=== PATIENT | female | born 1935 | race Caucasian/White ===

== ENCOUNTER → 2016-10-15 | Outpatient (CLI) | payer OTHER, BC ==
[~2016-10-15] MED LIST: ACET325T96 PO; ALBU18002 INH; ALBUAER2 INH; AMLO-114 PO; ASPCH81X PO; ASPEC81 PO; ATOR-22 PO; ATOR10TA88 PO; CALC600T9 PO; CHOL20009 PO; CIPR0.3S OPL; DOCU-94 PO; LISI-725 PO; METF-384 PO; METF1TAB53 PO; METO50TA16 PO; METO50TA17 PO; MONT1TAB3 PO; NRV5 PO; NYST-19 EXT; PANT1TAB48 PO; PANT40TA PO; PRED1SUS3 OPL; PSEU60TA80 PO; QUET1TAB30 PO; SENN1TAB77 PO; SNG10 PO; TRAM-10 PO; [UNRECOGNIZED DRUG - OTHER] PO
--- NOTE | 2016-10-15 14:04 | DIAGNOSTIC IMAGING REPORT ---
TWO VIEW CHEST CLINICAL HISTORY: Cough. FINDINGS: PA and lateral chest radiographs are compared to study dated 12/09/2015. The heart is enlarged and there is atherosclerotic calcification of the thoracic aorta. The pulmonary vasculature is noncongested. Chronic interstitial thickening is similar to previous. There is left basilar atelectasis. No airspace consolidation or pleural effusion is identified. There is no pneumothorax. The skeletal structures are osteopenic. Degenerative changes noted throughout the thoracic spine. A mild compression deformity is noted in the lower thoracic region. Cholecystectomy clips are noted in the right upper quadrant. IMPRESSION: Cardiac enlargement with no active disease in the chest. Electronically signed by: Italo Whelan M.D. 10/15/2016 2:02 PM Dictated Date/Time: 10/15/2016 2:01 PM
== END | disposition home or self-care (01) ==
LOC: C.RADBC 13:41
PROVIDERS: ATTEND Family Medicine
DX: R05 Cough (principal); I51.7 Cardiomegaly

== ENCOUNTER → 2017-01-11 | Day surgery (SDC) | payer OTHER, BC ==
[2016-12-29 15:28] VITALS: Ht 161.3 cm; Wt 95.5 kg
[~2017-01-11] VITALS: Ht 161.3 cm; Wt 95.5 kg
[~2017-01-11] MED LIST changes: +500ML BSS 0.3ML EPI 1:1000PF IRRIG ONE; +ACETAMINOPHEN 325 MG TAB PO PRN; -ALBUAER2 INH; +AMVISC PLUS 0.8ML SYRINGE INT OCU ONE; -ASPEC81 PO; -ATOR-22 PO; +ATOR10TA82 PO; -ATOR10TA88 PO; +ATROPINE SULFATE 0.1 MG/ML 5ML SYR IV PRN; +BRIMONIDINE TART 0.2% OP SOLN PER DROP CHARGE ONE; +BSS FLUSH ONE; +ENDOCOAT 0.85ML SYRINGE INT OCU ONE; +EpINEphrine INJ 1MG/ML AMP 1 MG/ML AMP ONE; +LACTATED RINGER'S 1000ML 500 ML IV SCH; +LIDOCAINE 4% OP SOLN DROP CHARGE ONE; +LIDOCAINE 4% OP SOLN DROP CHARGE OPL SCH; +LIDOCAINE HCL 1% MPF 2 ML VIAL ONE; -METF-384 PO; -METO50TA17 PO; +MIDAZOLAM HCL 1 MG/ML 2ML VIAL ONE; +MOXIFLOXACIN OPH SOLN PER DROP CHARGE ONE; -NRV5 PO; -PANT40TA PO; +POVIDONE-IODINE OP SOLN 30 ML BTL ONE; +PROPARACAINE 0.5% OP SOLN PER DROP CHARGE OPL SCH; -SNG10 PO; +TOBRAMYCIN/DEXAMETHASONE OPH OINT PER APPLN CHARGE ONE; -[UNRECOGNIZED DRUG - OTHER] PO
[2017-01-11] MEDS: TROPICAMIDE 1% OP SOLN PER DROP CHARGE OPL SCH ×2 (06:40→06:45)
[2017-01-11] MEDS: PHENYLEPHRINE HCL 2.5% OP SOLN PER DROP CHARGE OPL SCH ×2 (06:40→06:45)
[2017-01-11] MEDS: CYCLOPENTOLATE HCL 1% OP SOLN PER DROP CHARGE OPL SCH ×2 (06:41→06:46)
[2017-01-11] MEDS: KETOROLAC 0.5% OP SOLN PER DROP CHARGE OPL SCH ×2 (06:41→06:46)
[2017-01-11] MEDS: MOXIFLOXACIN OPH SOLN PER DROP CHARGE OPL SCH ×2 (06:42→06:52)
--- NOTE | 2017-01-11 06:57 | History & Physical Bridge - [place] ---
H&P Re-Evaluation Bridge Note: I have examined the patient, reviewed the History & Physical and in the interval since the performance of the History & Physical I have noted the following changes of clinical significance: No changes noted
--- NOTE | 2017-01-11 07:28 | Discharge Instructions-SurgCtr ---
Discharge Instructions Date of Service Jan 11, 2017. Visit Reason for Visit: Cataract Left Eye Discharge Discharge Diagnosis / Problem: cataract left eye Discharge Goals Goal(s): Improve function Medications Stopped Medications Name(s): Metformin stopped x 48 hrs. Activity Recommendations Activity Limitations: per Instructions/Follow-up section Lifting Limitations: no more than 5 pounds Anesthesia . Post Anesthesia Instructions: If you have had General Anesthesia or IV Sedation: * Do not drive today. * Resume driving when surgeon permits. * Do not make important decisions or sign legal documents today. * Call surgeon for: 1. Temperature elevations greater than 101 degrees F. 2. Uncontrollable pain. 3. Excessive bleeding. 4. Persistent nausea and vomiting. 5. Medication intolerance (nausea, vomiting or rash). * For nausea and vomiting use only clear liquids such as: tea, soda, bouillon until nausea subsides, then gradually increase diet as tolerated. * If you have any concerns or questions, call your surgeon's office. If physician is unavailable and it is an emergency, call 911 or go to the nearest emergency room. . Instructions / Follow-Up Instructions / Follow-Up ACTIVITY RECOMMENDATIONS: * Light activities * You may walk outside, read, watch television. * Mild irritation and blurred vision are common for the first few days, redness around the white part of the eye is common. MEDICATIONS: Resume previous medications unless instructed otherwise by your surgeon. Eye drops (today and tomorrow): Cipro - one drop in operative eye every 2 hours while awake Prednisolone 1% - one drop in operative eye every 2 hours while awake Ketorolac - one drop in operative eye every 2 hours while awake SPECIAL CARE INSTRUCTIONS: * If any problems or concerns, please call Dr. Smith's office at . * Keep plastic shield taped over eye to sleep at night. * Keep plastic shield taped over eye except to administer eye drops. * Keep plastic shield on until office visit the following day. FOLLOW UP VISIT: Follow-up with Dr. Smith in the [place] office as scheduled. If not already scheduled, please call the office at . Diet Recommendations Home Diet: resume previous diet Procedures Procedures Performed: Left Cataract Phacoemulsification With Intraocular Lens Implant Pending Studies Studies pending at discharge: no Medical Emergencies . Who to Call and When: Medical Emergencies: If at any time you feel your situation is an emergency, please call 911 immediately. . Non-Emergent Contact Non-Emergency issues call your: Elementary Reading Specialist . . "Provider Documentation" section prepared by Ambrose Smith.
--- NOTE | 2017-01-11 07:28 | [facility] Post Operative Brief Note ---
Immediate Operative Summary Operative Date Jan 11, 2017. Pre-Operative Diagnosis Cataract left eye Post-Operative Diagnosis same Procedure(s) Performed Left Cataract Phacoemulsification With Intraocular Lens Implant Surgeon Dr Smith Publication Director Surgeon(s) 0 Estimated Blood Loss 0 Findings cataract left eye Specimens 0 Complication(s) None Disposition Recovery Room / PACU
[2017-01-11 07:29] VITALS: TEMP 36.6
[2017-01-11 07:52] VITALS: BP 177/102; PULSE 58; O2SAT 97
--- NOTE | 2017-01-11 07:55 | Anesthesia Progress Nt - [facility] ---
Anesthesia Post Op Note Date & Time Jan 11, 2017 at 07:55 Vital Signs Pain Intensity: 0 Vital Signs Past 12 Hours Date Time Temp Pulse Resp B/P Pulse Ox O2 Delivery O2 Flow Rate FiO2 01/11/17 07:52 58 18 177/102 97 Room Air 01/11/17 07:29 36.6 55 14 175/78 96 Room Air 01/11/17 06:25 36.6 53 20 160/99 93 Room Air Notes Mental Status: alert / awake / arousable, participated in evaluation Pt Amnestic to Procedure: Yes Nausea / Vomiting: adequately controlled Pain: adequately controlled Airway Patency, RR, SpO2: stable & adequate BP & HR: stable & adequate Hydration State: stable & adequate Anesthetic Complications: no major complications apparent
--- NOTE | 2017-01-11 09:50 | OPERATIVE REPORT ---
DATE OF OPERATION: 01/11/2017 PREOPERATIVE DIAGNOSIS: Cataract, left eye. POSTOPERATIVE DIAGNOSIS: Cataract, left eye. PROCEDURE: Phacoemulsification cataract extraction with intraocular lens placement, left eye. SURGEON: Dr. Smith. COMPLICATIONS: None. ESTIMATED BLOOD LOSS: None. ANESTHESIA: Topical with sedation. OPERATION AND FINDINGS: After informed consent was obtained in the holding area the patient was wheeled back to the Operating Room where cardiac monitoring leads and oxygen by nasal cannula was administered by Anesthesia. Gentle IV sedation was given, and the patient's left eye was prepped and draped in the usual sterile fashion. A wire lid speculum was placed into the left eye and the operating microscope was swung into position. Using 0.12 forceps and a Supersharp blade a paracentesis port was made 3 o'clock hours away from the 3 o'clock position of patient's left eye. 1% non-preserved Lidocaine was then injected into the anterior chamber for anesthesia. A 2.2 mm keratotome blade was then used to make a shelved clear corneal incision at the 3 o'clock position of her left eye. Amvisc was injected into the anterior chamber and a cystotome and Utrata forceps were used to perform a curvilinear capsulorrhexis. BSS on a hydrodissection cannula was used to hydrodissect the lens nucleus away from the capsular bag. The phacoemulsification handpiece was then used in a stop and chop fashion to remove the lens nucleus. The irrigation and aspiration handpiece was then used to remove the residual cortical material. Amvisc was injected into the capsular bag and anterior chamber and a Bausch \T\ Lomb MX60 21.0 Diopter intraocular lens was injected into the capsular bag. Irrigation and aspiration handpiece was used to remove the residual viscoelastic material. The wounds were hydrated and noted to be watertight. The wire lid speculum was removed from the eye. Vigamox, Brimonidine, and TobraDex ointment were placed on the eye and it was shielded. It should be noted that EndoCoat was used during the case to protect the cornea endothelium. DISPOSITION: The patient tolerated the procedure well and was wheeled to the post anesthesia care unit in stable condition. I attest to the content of the Intraoperative Record and any orders documented therein. Any exceptions are noted below. I attest to the content of the Intraoperative Record and any orders documented therein. Any exceptio ns are noted below.
== END | disposition home or self-care (01) ==
LOC: X.SURG 06:09
PROVIDERS: ATTEND Ophthalmology
DX: H26.9 Unspecified cataract (principal); I10 Essential (primary) hypertension; E11.36 Type 2 diabetes mellitus with diabetic cataract; J45.909 Unspecified asthma, uncomplicated; G47.33 Obstructive sleep apnea (adult) (pediatric); M19.90 Unspecified osteoarthritis, unspecified site; Z68.37 Body mass index [BMI] 37.0-37.9, adult; E66.9 Obesity, unspecified; Z90.710 Acquired absence of both cervix and uterus; Z90.49 Acquired absence of other specified parts of digestive tract

== ENCOUNTER → 2017-01-25 | Day surgery (SDC) | payer OTHER, BC ==
[2017-01-22 14:51] VITALS: Ht 161.3 cm; Wt 95.5 kg
[~2017-01-25] VITALS: Ht 161.3 cm; Wt 95.5 kg
[~2017-01-25] MED LIST changes: +EpHEDrine SULFATE INJ 50 MG/ML AMP IV PRN; +FENTANYL CITRATE INJ 50 MCG/1 ML 2 ML VIAL IV PRN; -LIDOCAINE 4% OP SOLN DROP CHARGE OPL SCH; +LIDOCAINE 4% OP SOLN DROP CHARGE OPR SCH; +ONDANSETRON INJ 2 MG/ML 2 ML VIAL IV PRN; -PROPARACAINE 0.5% OP SOLN PER DROP CHARGE OPL SCH; +PROPARACAINE 0.5% OP SOLN PER DROP CHARGE OPR SCH
[2017-01-25] MEDS: PHENYLEPHRINE HCL 2.5% OP SOLN PER DROP CHARGE OPR SCH ×2 (06:31→06:36)
[2017-01-25] MEDS: TROPICAMIDE 1% OP SOLN PER DROP CHARGE OPR SCH ×2 (06:32→06:37)
[2017-01-25] MEDS: CYCLOPENTOLATE HCL 1% OP SOLN PER DROP CHARGE OPR SCH ×2 (06:33→06:38)
[2017-01-25] MEDS: KETOROLAC 0.5% OP SOLN PER DROP CHARGE OPR SCH ×2 (06:34→06:39)
[2017-01-25] MEDS: MOXIFLOXACIN OPH SOLN PER DROP CHARGE OPR SCH ×2 (06:35→06:45)
--- NOTE | 2017-01-25 07:24 | [facility] Post Operative Brief Note ---
Immediate Operative Summary Operative Date Jan 25, 2017. Pre-Operative Diagnosis Cataract Right Eye Post-Operative Diagnosis Same Procedure(s) Performed Right Cataract Phacoemulsification With Intraocular Lens Implant Surgeon Dr. Smith Tentmaker Surgeon(s) None Estimated Blood Loss 0 Findings cataract right eye Specimens None Complication(s) None Disposition Recovery Room / PACU
--- NOTE | 2017-01-25 07:24 | Discharge Instructions-SurgCtr ---
Discharge Instructions Date of Service Jan 25, 2017. Visit Reason for Visit: Cataract Right Eye Discharge Discharge Diagnosis / Problem: cataract right eye Discharge Goals Goal(s): Improve function Medications Stopped Medications Name(s): Metformin, last dose 01/23/17 Activity Recommendations Activity Limitations: per Instructions/Follow-up section Lifting Limitations: no more than 5 pounds Anesthesia . Post Anesthesia Instructions: If you have had General Anesthesia or IV Sedation: * Do not drive today. * Resume driving when surgeon permits. * Do not make important decisions or sign legal documents today. * Call surgeon for: 1. Temperature elevations greater than 101 degrees F. 2. Uncontrollable pain. 3. Excessive bleeding. 4. Persistent nausea and vomiting. 5. Medication intolerance (nausea, vomiting or rash). * For nausea and vomiting use only clear liquids such as: tea, soda, bouillon until nausea subsides, then gradually increase diet as tolerated. * If you have any concerns or questions, call your surgeon's office. If physician is unavailable and it is an emergency, call 911 or go to the nearest emergency room. . Instructions / Follow-Up Instructions / Follow-Up ACTIVITY RECOMMENDATIONS: * Light activities * You may walk outside, read, watch television. * Mild irritation and blurred vision are common for the first few days, redness around the white part of the eye is common. MEDICATIONS: Resume previous medications unless instructed otherwise by your surgeon. Eye drops (today and tomorrow): Cipro - one drop in operative eye every 2 hours while awake Prednisolone 1% - one drop in operative eye every 2 hours while awake Ketorolac - one drop in operative eye every 2 hours while awake SPECIAL CARE INSTRUCTIONS: * If any problems or concerns, please call Dr. Smith's office at . * Keep plastic shield taped over eye to sleep at night. * Keep plastic shield taped over eye except to administer eye drops. * Keep plastic shield on until office visit the following day. FOLLOW UP VISIT: Follow-up with Dr. Smith in the [place] office as scheduled. If not already scheduled, please call the office at . Diet Recommendations Home Diet: resume previous diet Procedures Procedures Performed: Right Cataract Phacoemulsification With Intraocular Lens Implant Pending Studies Studies pending at discharge: no Medical Emergencies . Who to Call and When: Medical Emergencies: If at any time you feel your situation is an emergency, please call 911 immediately. . Non-Emergent Contact Non-Emergency issues call your: Truck Switcher . . "Provider Documentation" section prepared by Ambrose Smith. .
[2017-01-25 07:41] VITALS: TEMP 36.2
[2017-01-25 07:52] VITALS: BP 149/71; PULSE 50; O2SAT 95
--- NOTE | 2017-01-25 07:58 | Anesthesia Progress Nt - [facility] ---
Anesthesia Post Op Note Date & Time Jan 25, 2017 at 07:58 Vital Signs Pain Intensity: 0 Vital Signs Past 12 Hours Date Time Temp Pulse Resp B/P Pulse Ox O2 Delivery O2 Flow Rate FiO2 01/25/17 07:52 50 18 149/71 95 01/25/17 07:41 36.2 01/25/17 07:26 36.1 50 16 151/72 98 Room Air 01/25/17 06:27 36.3 50 16 184/90 95 Room Air Notes Mental Status: alert / awake / arousable, participated in evaluation Pt Amnestic to Procedure: Yes Nausea / Vomiting: adequately controlled Pain: adequately controlled Airway Patency, RR, SpO2: stable & adequate BP & HR: stable & adequate Hydration State: stable & adequate Anesthetic Complications: no major complications apparent
--- NOTE | 2017-01-25 08:05 | OPERATIVE REPORT ---
DATE OF OPERATION: 01/25/2017 PREOPERATIVE DIAGNOSIS: Cataract, right eye. POSTOPERATIVE DIAGNOSIS: Cataract, right eye. PROCEDURE: Phacoemulsification cataract extraction with intraocular lens placement, right eye. SURGEON: Dr. Smith. COMPLICATIONS: None. ESTIMATED BLOOD LOSS: None. ANESTHESIA: Topical with sedation. OPERATION AND FINDINGS: After informed consent was obtained in the holding area the patient was wheeled back to the Operating Room where cardiac monitoring leads and oxygen by nasal cannula was administered by Anesthesia. Gentle IV sedation was given, and the patient's right eye was prepped and draped in usual sterile fashion. A wire lid speculum was placed into the right eye and the operating microscope was swung into position. Using 0.12 forceps and a Supersharp blade a paracentesis port was made 3 o'clock hours away from the 9 o'clock position of the patient's right eye. 1% non-preserved Lidocaine was then injected into the anterior chamber for anesthesia. A 2.2 mm keratotome blade was then used to make a shelved clear corneal incision at the 9 o'clock position of her right eye. Amvisc was injected into the anterior chamber and a cystotome and Utrata forceps were used to perform a curvilinear capsulorrhexis. BSS on a hydrodissection cannula was used to hydrodissect the lens nucleus away from the capsular bag. The phacoemulsification handpiece was then used in a stop and chop fashion to remove the lens nucleus. The irrigation and aspiration handpiece was then used to remove the residual cortical material. Amvisc was injected into the capsular bag and anterior chamber and a Bausch \T\ Lomb MX60 21.0 Diopter intraocular lens was injected into the capsular bag. Irrigation and aspiration handpiece was used to remove the residual viscoelastic material. The wounds were hydrated and noted to be watertight. The wire lid speculum was removed from the eye. Vigamox, Brimonidine, and TobraDex ointment were placed on the eye and it was shielded. It should be noted that EndoCoat was used throughout the case to protect the cornea endothelium. DISPOSITION: The patient tolerated the procedure well and was wheeled to the post anesthesia care unit in stable condition. I attest to the content of the Intraoperative Record and any orders documented therein. Any exceptions are noted below. I attest to the content of the Intraoperative Record and any orders documented therein. Any exceptio ns are noted below.
== END | disposition home or self-care (01) ==
LOC: X.SURG 06:12
PROVIDERS: ATTEND Ophthalmology
DX: H26.9 Unspecified cataract (principal); E11.9 Type 2 diabetes mellitus without complications; J45.909 Unspecified asthma, uncomplicated; I10 Essential (primary) hypertension; E78.00 Pure hypercholesterolemia, unspecified; Z90.49 Acquired absence of other specified parts of digestive tract; Z90.710 Acquired absence of both cervix and uterus; Z83.3 Family history of diabetes mellitus

== ENCOUNTER → 2017-03-30 | Outpatient (CLI) | payer OTHER, BC ==
[~2017-03-30] MED LIST changes: -500ML BSS 0.3ML EPI 1:1000PF IRRIG ONE; -ACETAMINOPHEN 325 MG TAB PO PRN; -ALBU18002 INH; -AMVISC PLUS 0.8ML SYRINGE INT OCU ONE; -ATROPINE SULFATE 0.1 MG/ML 5ML SYR IV PRN; -BRIMONIDINE TART 0.2% OP SOLN PER DROP CHARGE ONE; -BSS FLUSH ONE; -ENDOCOAT 0.85ML SYRINGE INT OCU ONE; -EpHEDrine SULFATE INJ 50 MG/ML AMP IV PRN; -EpINEphrine INJ 1MG/ML AMP 1 MG/ML AMP ONE; -FENTANYL CITRATE INJ 50 MCG/1 ML 2 ML VIAL IV PRN; -LACTATED RINGER'S 1000ML 500 ML IV SCH; -LIDOCAINE 4% OP SOLN DROP CHARGE ONE; -LIDOCAINE 4% OP SOLN DROP CHARGE OPR SCH; -LIDOCAINE HCL 1% MPF 2 ML VIAL ONE; -MIDAZOLAM HCL 1 MG/ML 2ML VIAL ONE; -MOXIFLOXACIN OPH SOLN PER DROP CHARGE ONE; -NYST-19 EXT; -ONDANSETRON INJ 2 MG/ML 2 ML VIAL IV PRN; -POVIDONE-IODINE OP SOLN 30 ML BTL ONE; -PROPARACAINE 0.5% OP SOLN PER DROP CHARGE OPR SCH; -TOBRAMYCIN/DEXAMETHASONE OPH OINT PER APPLN CHARGE ONE
[2017-03-30 14:47] LABS: ESTIMATED AVERAGE GLUCOSE 183 mg/dl; HA1C FLAG Normal (Normal)
[2017-03-30 15:26] LABS: ALT/SGPT 15 U/L (12-78); AST/SGOT 12 U/L (15-37); BLOOD UREA NITROGEN 25 mg/dl (7-18); BUN/CREATININE RATIO 18.9 (10-20); CALCIUM 9.2 mg/dl (8.5-10.1); CARBON DIOXIDE 26 mmol/L (21-32); CHLORIDE 107 mmol/L (98-107); GLUCOSE 161 mg/dl (70-99); POTASSIUM 4.5 mmol/L (3.5-5.1); SODIUM 140 mmol/L (136-145)
[2017-03-30 15:28] LABS: ALB/GLOB RATIO 0.9 (0.9-2); ALKALINE PHOSPHATASE 89 U/L (45-117)
== END | disposition home or self-care (01) ==
LOC: C.LABBC 11:31
PROVIDERS: ATTEND Family Medicine
DX: E11.9 Type 2 diabetes mellitus without complications (principal); I10 Essential (primary) hypertension

== ENCOUNTER → 2017-06-29 | Outpatient (CLI) | payer OTHER, BC ==
[~2017-06-29] MED LIST changes: -ATOR10TA82 PO; +ATOR10TA88 PO
[2017-06-29 12:33] LABS: URINE TOTAL PROTEIN < 5.0 mg/dl (0-11.9)
[2017-06-29 12:36] LABS: ESTIMATED AVERAGE GLUCOSE 137 mg/dl; HA1C FLAG Normal (Normal)
[2017-06-29 12:43] LABS: BLOOD UREA NITROGEN 23 mg/dl (7-18); CALCIUM 9.3 mg/dl (8.5-10.1); CARBON DIOXIDE 26 mmol/L (21-32); CHLORIDE 110 mmol/L (98-107); GLUCOSE 97 mg/dl (70-99); POTASSIUM 4.8 mmol/L (3.5-5.1); SODIUM 142 mmol/L (136-145)
[2017-06-29 12:53] LABS: URINE APPEARANCE CLEAR (CLEAR); URINE BILIRUBIN NEG (NEG); URINE COLOR YELLOW; URINE EPITHELIAL CELL AUTO 20-30 /lpf (0-5); URINE NITRITE NEG (NEG); URINE SPECIFIC GRAVITY 1.013 (1.000-1.030); UROBILINOGEN NEG (NEG)
[2017-06-29 13:05] LABS: MANUAL MICROSCOPIC REQUIRED? NO; REVIEW REQ? NO
== END | disposition home or self-care (01) ==
LOC: C.LABOAKS 14:57
PROVIDERS: ATTEND Family Medicine
DX: E11.9 Type 2 diabetes mellitus without complications (principal); E55.9 Vitamin D deficiency, unspecified; I12.9 Hypertensive chronic kidney disease with stage 1 through stage 4 chronic kidney disease, or unspecified chronic kidney disease; N18.9 Chronic kidney disease, unspecified

== ENCOUNTER → 2017-12-15 | Outpatient (CLI) | payer OTHER, BC ==
[~2017-12-15] MED LIST changes: +ACET-1693 PO; -ACET325T96 PO; +ATOR10TA82 PO; -ATOR10TA88 PO; +PANT1TAB3 PO; -PANT1TAB48 PO
[2017-12-15 12:17] LABS: BASO % 0.5 %; BASO ABS # 0.04 K/uL (0-0.2); EOS % 3.8 %; EOS ABS # 0.34 K/uL (0-0.5); HEMATOCRIT 35.7 % (37-47); HEMOGLOBIN 11.3 g/dL (12.0-16.0); IG# 0.02 K/uL (0.00-0.02); LYMPH ABS # 2.57 K/uL (1.2-3.4); MEAN CELL VOLUME 94.2 fL (80-100); MEAN CORPUSCULAR HEMOGLOBIN 29.8 pg (25-34); MEAN CORPUSCULAR HGB CONC 31.7 g/dl (32-36); MEAN PLATELET VOLUME 10.4 fL (7.4-10.4); MONO ABS # 0.62 K/uL (0.11-0.59); NEUT % 59.5 %; NEUT ABS # 5.26 K/uL (1.4-6.5); PLATELET COUNT 328 K/uL (130-400); RED CELL DISTRIBUTION WIDTH CV 14.9 % (11.5-14.5); RED CELL DISTRIBUTION WIDTH SD 50.7 fL (36.4-46.3); WHITE BLOOD COUNT 8.85 K/uL (4.8-10.8)
[2017-12-15 12:27] LABS: HEMOGLOBIN A1C 6.2 % (4.5-5.6)
[2017-12-15 12:38] LABS: ALBUMIN 3.5 gm/dl (3.4-5.0); ALT/SGPT 16 U/L (12-78); BLOOD UREA NITROGEN 24 mg/dl (7-18); CALCIUM 9.7 mg/dl (8.5-10.1); CARBON DIOXIDE 25 mmol/L (21-32); CREATININE 1.15 mg/dl (0.60-1.20); GLUCOSE 83 mg/dl (70-99); POTASSIUM 5.1 mmol/L (3.5-5.1); SODIUM 139 mmol/L (136-145)
[2017-12-15 12:49] LABS: ALKALINE PHOSPHATASE 75 U/L (45-117); AST/SGOT 10 U/L (15-37); TOTAL PROTEIN 7.2 gm/dl (6.4-8.2)
== END | disposition home or self-care (01) ==
LOC: C.LABBFT 10:00
PROVIDERS: ATTEND Internal Medicine
DX: Z11.59 Encounter for screening for other viral diseases (principal); R53.83 Other fatigue; E11.22 Type 2 diabetes mellitus with diabetic chronic kidney disease; I12.9 Hypertensive chronic kidney disease with stage 1 through stage 4 chronic kidney disease, or unspecified chronic kidney disease; E78.5 Hyperlipidemia, unspecified; F39 Unspecified mood [affective] disorder; N18.9 Chronic kidney disease, unspecified

== ENCOUNTER 2021-07-05 03:23 | Inpatient (IN) ==
--- NOTE | 2021-07-05 03:50 | Emergency Department Note ---
Impression & Plan Acute congestive heart failure ED Provider Note Name: SALVADOR FRASER Age: 85 Sex: F Arrives Via: Ambulance Informant: Patient, ems ED Provider: Sterling Donnelly MD Chief Complaint: shortness of breath Impression: Acute Congestive Heart Failure Medical Decision Makin yr old female with extensive PMH arrives acutely short of breath. She has edematous legs, diffuse crackles lungs and history concerning for CHF. On N2 O2 she is breathing comfortably and minimal distress. Findings most consistent with CHF rather than pe, dissection, acs, infection etc. She was given 40mg IV lasix and hospitalist consulted. Prior Medical Record and Triage/Nursing Notes reviewed by Me Additional history obtained from chart Differentials:Reactive airway disease, pneumonia, pneumothorax, COPD, CHF, infections, cardiac ischemia, pulmonary embolism, musculoskeletal, gastrointestinal, as well as other pathologies. Vital Signs: reviewed and remarkable for hypoxia on RA Interventions: Lasix 40mg IV Labs:Reviewed and remarkable for elevated bnp Imaging:X ray results are stated below per my interpretation: Chest: 1 view: Diffuse congestive findings EKG:Per My Interpretation: Indication sob: Sinus Samson 52 bpm, qtc 416. No Ectopy. No Ischemia. Compared to EKG 02/28/21, no significant changes. Cardiac/Tele Monitoring: Cardiac Monitoring: An Order was placed for continuous cardiac monitoring. The monitor shows a rate of 55 with a sinus samson rhythm. Consults:Dr Carmina KEARNS Hospitalist Plan: Disposition:Hospitalization. Condition: fair History of Present Illness:85 yr old female arrives for evaluation of shortness of breath. Patient notes worsening weakness over the last few days with difficulty catching her breath. Associated with edema of both legs. No fevers, chills, syncope, chest pain, back pain, nausea, vomiting, abdominal pain, leg pain, calf pain, rashes, nor other symptoms. Denies trauma, injuries, falls. Has a history of heart failure and takes lasix. Denies issues with breathing previously. O2 86% at assisted living, EMS called and she was put on 6 L NC with improvement in breathing. Patient notes she feels much better. No medications prior to arrival. ROS: See above HPI for pertinent positives & negatives. A total of 10 systems reviewed and were otherwise negative. Past Medical History:See Below Past Surgical History:See Below Family History:See Below Social History:See Below Home Medications:See Below Allergies:See Below Vitals:Blood Pressure: 15/75, Pulse 60, RR 16, T 36.5C, O2 95% on 6L Physical Exam: GENERAL: Patient is tired/elderly appearing and in mild distress. EYES: No scleral icterus, unremarkable pupils. ENT: Mucous membranes moist, no nasal congestion. NECK: No masses appreciated, nomeningismus, trachea is midline. RESPIRATORY: Moderate dyspnea with diffuse lower crackles CARDIOVASCULAR: Regular rate and rhythm.No murmurs, rubs, gallops appreciated. GASTROINTESTINAL: Abdomen soft, non-tender, no peritonitis.Bowel sounds positive.No masses appreciated. BACK: No midline tenderness, no CVA tenderness EXTREMITIES: Normal motion all extremities, no cyanosis, moderate lower leg edema. NEUROLOGIC: Alert and oriented, no acute motor or sensory deficits, no focal weakness, cranial nerves grossly intact. SKIN: No rash, no jaundice, no diaphoresis. PSYCH: Appropriate GCS: 15 ED Course: Times/Reassessments: stable, breathing comfortably on NC Sterling Donnelly MD Past Med/Surg History Medical History (Updated 07/07/21 @ 13:18 by Sterling Donnelly MD) Anemia Asthma Benign essential tremor Chronic cerebral ischemia Chronic low back pain Chronic renal insufficiency CKD (chronic kidney disease), stage III Hyperlipidemia Hypertension Mood disorder Obstructive sleep apnea s/p UPPP surgery Osteoarthritis Osteopenia Peripheral neuropathy Prolapse of female pelvic organs Type 2 diabetes mellitus Vitamin B12 deficiency Vitamin D deficiency Surgical History H/O wisdom tooth extraction History of knee replacement R and L History of tonsillectomy and adenoidectomy S/P appendectomy S/P cholecystectomy S/P uvulopalatopharyngoplasty S/P vaginal hysterectomy unsure if ovaries were left Family History Sister Liver cancer Denies family history of Ovarian cancer Breast cancer Colorectal cancer Uterine cancer Social History (Updated 02/04/21 @ 13:26 by Yessica Merrill MA) Smoking Status: Never smoker Second Hand Exposure: No; Hx Alcohol Use: No Hx Substance Use: No Preferred Language: [place]an Communication Ability: Effective 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 Beliefs That Will Affect Care: None marital status: / Current Living Situation: Alone and Personal Care Facility Current Living Situation Comment: [employer] current occupational status: retired How many Children do You have: 2 Feels Safe at Home: Yes caffeine: No Physical Activity Frequency: Does not Exercise Seatbelt Use: always Assistive Devices: Cane and Walker Allergies Allergies Allergy/AdvReac Type Severity Reaction Status Date / Time coconut Allergy Intermediate Rash Verified 07/02/21 08:54 peanut Allergy Intermediate Rash Verified 07/02/21 08:54 oxycodone [From OxyContin] AdvReac hallucinati Verified 07/02/21 08:54 on Home Meds Previous Rx's Medication Instructions Recorded nystatin 100,000 unit/gram topical 1 appln TOP BID PRN #30 gm 05/23/19 powder (Nystop) aspirin 81 mg tablet,delayed 81 mg PO DAILY #90 tab 06/12/20 release (Aspirin Low Dose) calcium carbonate-vitamin D3 500 1 tab PO DAILY #90 tab 06/12/20 mg (1,250 mg)-600 unit tablet methyl salicylate 15 %-menthol 10 1 applic TOPICAL BID PRN #57 g 10/20 % topical cream (Bengay Greaseless) tramadol 50 mg tablet 50 mg PO Q8H PRN #90 tab 10/03/20 amlodipine 5 mg tablet 5 mg PO DAILY #90 tab 02/04/21 metformin 500 mg tablet 500 mg PO BID #180 tab 03/06/21 furosemide 20 mg tablet (Lasix) 20 mg PO .COMPLEX #90 tab 03/20/21 acetaminophen 325 mg tablet 650 mg PO Q4H PRN #120 tab 05/26/21 atorvastatin 10 mg tablet 10 mg PO HS #90 tab 05/26/21 cyanocobalamin (vitamin B-12) 1,000 mcg IM MONTHLY #1 ml 05/26/21 1,000 mcg/mL injection solution glimepiride 1 mg tablet 1 mg PO QAM #90 tab 05/26/21 lisinopril 20 mg tablet 20 mg PO BID #180 tab 05/26/21 metoprolol tartrate 50 mg tablet 50 mg PO BID #180 tab 05/26/21 montelukast 10 mg tablet 10 mg PO HS #90 tab 05/26/21 pantoprazole 40 mg tablet,delayed 40 mg PO DAILY #90 tab 05/26/21 release quetiapine 50 mg tablet 50 mg PO HS #90 tab 05/26/21 albuterol sulfate 90 mcg/actuation 2 puff INHALATION Q6H PRN #8.5 g 06/27/21 aerosol inhaler fluticasone 100 mcg-salmeterol 50 1 inh INHALATION BID #180 ea 06/27/21 mcg/dose blistr powdr for inhalation (Advair Diskus) cholecalciferol (vitamin D3) 125 125 mcg PO DAILY #90 tab 07/01/21 mcg (5,000 unit) tablet polysaccharide iron complex 150 mg 150 mg PO DAILY #90 cap 07/01/21 iron capsule (Ferrex) Results & Data (ED) Laboratory Data Result diagrams: 07/07/21 06:36 07/07/21 06:36 Lab Results 07/05/21 07/05/21 07/05/21 Range/Units 03:50 03:50 03:50 WBC 10.29 (4.8-10.8) K/uL RBC 3.65 L (4.2-5.4) M/uL Hgb 9.0 L (12.0-16.0) g/dL Hct 30.7 L (37-47) % MCV 84.1 (80-100) fL MCH 24.7 L (25-34) pg MCHC 29.3 L (32-36) g/dL RDW Std Deviation 53.5 H (36.4-46.3) fL RDW Coeff of Shama 17.2 H (11.5-14.5) % Plt Count 352 (130-400) K/uL MPV 8.9 (7.4-10.4) fL Immature Gran % (Auto) 0.3 % Neut % (Auto) 67.9 % Lymph % (Auto) 16.4 % [place] % (Auto) 8.1 % Eos % (Auto) 6.9 % Baso % (Auto) 0.4 % Neut # (Auto) 6.99 H (1.4-6.5) K/uL Lymph # (Auto) 1.69 (1.2-3.4) K/uL [place] # (Auto) 0.83 H (0.11-0.59) K/uL Eos # (Auto) 0.71 H (0-0.5) K/uL Baso # (Auto) 0.04 (0-0.2) K/uL Immature Gran # (Auto) 0.03 H (0.00-0.02) K/uL PT 10.0 (9.0-12.0) Seconds INR 1.0 (0.9-1.1) Sodium 139 (136-145) mmol/L Potassium 4.9 (3.5-5.1) mmol/L Chloride 109 H (98-107) mmol/L Carbon Dioxide 29 (21-32) mmol/L Anion Gap 1.0 L (3-11) BUN 24 H (7-18) mg/dl Creatinine 1.40 H (0.6-1.2) mg/dl Est Cr Clr Drug Dosing 35.8 ml/min Est GFR ( Amer) 39.9 ml/min Est GFR (Non-Af Amer) 34.4 ml/min BUN/Creatinine Ratio 16.8 (10-20) Glucose 129 H (70-99) mg/dl Calcium 9.2 (8.5-10.1) mg/dl Magnesium 2.0 (1.8-2.4) mg/dl Total Bilirubin 0.2 (0.2-1) mg/dl Direct Bilirubin < 0.1 (0-0.2) mg/dl AST 11 L (15-37) U/L ALT 17 (12-78) U/L Alkaline Phosphatase 105 (45-117) U/L Troponin I < 0.015 (0-0.045) ng/ml NT-Pro-B Natriuret Pep 4717 H (0-1800) pg/ml Total Protein 6.8 (6.4-8.2) gm/dl Albumin 2.9 L (3.4-5.0) gm/dl Lipase 157 (73-393) U/L Urine Color Urine Appearance (Clear) Urine pH (4.5-7.5) Ur Specific [place] (1.000-1.030) Urine Protein (Negative) Urine Glucose (UA) (Negative) Urine Ketones (Negative) Urine Blood (Negative) Urine Nitrite (Negative) Urine Bilirubin (Negative) Urine Urobilinogen (Negative) Ur Leukocyte Esterase (Negative) Urine WBC (Auto) (0-5) /hpf Urine RBC (Auto) (0-4) /hpf U Hyaline Cast (Auto) (0-5) /lpf U Epithel Cells (Auto) (0-5) /lpf Urine Bacteria (Auto) (Negative) COVID-19 Eval Order SARS-CoV-2 (PCR) (Negative) 07/05/21 07/05/21 07/05/21 Range/Units 04:15 04:15 04:15 WBC (4.8-10.8) K/uL RBC (4.2-5.4) M/uL Hgb (12.0-16.0) g/dL Hct (37-47) % MCV (80-100) fL MCH (25-34) pg MCHC (32-36) g/dL RDW Std Deviation (36.4-46.3) fL RDW Coeff of Shama (11.5-14.5) % Plt Count (130-400) K/uL MPV (7.4-10.4) fL Immature Gran % (Auto) % Neut % (Auto) % Lymph % (Auto) % [place] % (Auto) % Eos % (Auto) % Baso % (Auto) % Neut # (Auto) (1.4-6.5) K/uL Lymph # (Auto) (1.2-3.4) K/uL [place] # (Auto) (0.11-0.59) K/uL Eos # (Auto) (0-0.5) K/uL Baso # (Auto) (0-0.2) K/uL Immature Gran # (Auto) (0.00-0.02) K/uL PT (9.0-12.0) Seconds INR (0.9-1.1) Sodium (136-145) mmol/L Potassium (3.5-5.1) mmol/L Chloride (98-107) mmol/L Carbon Dioxide (21-32) mmol/L Anion Gap (3-11) BUN (7-18) mg/dl Creatinine (0.6-1.2) mg/dl Est Cr Clr Drug Dosing ml/min Est GFR ( Amer) ml/min Est GFR (Non-Af Amer) ml/min BUN/Creatinine Ratio (10-20) Glucose (70-99) mg/dl Calcium (8.5-10.1) mg/dl Magnesium (1.8-2.4) mg/dl Total Bilirubin (0.2-1) mg/dl Direct Bilirubin (0-0.2) mg/dl AST (15-37) U/L ALT (12-78) U/L Alkaline Phosphatase (45-117) U/L Troponin I (0-0.045) ng/ml NT-Pro-B Natriuret Pep (0-1800) pg/ml Total Protein (6.4-8.2) gm/dl Albumin (3.4-5.0) gm/dl Lipase (73-393) U/L Urine Color Yellow Urine Appearance Clear (Clear) Urine pH 5.0 (4.5-7.5) Ur Specific [place] 1.013 (1.000-1.030) Urine Protein 1+ H (Negative) Urine Glucose (UA) Negative (Negative) Urine Ketones Negative (Negative) Urine Blood Negative (Negative) Urine Nitrite Negative (Negative) Urine Bilirubin Negative (Negative) Urine Urobilinogen Negative (Negative) Ur Leukocyte Esterase 2+ H (Negative) Urine WBC (Auto) >30 H (0-5) /hpf Urine RBC (Auto) 0-4 (0-4) /hpf U Hyaline Cast (Auto) 1-5 (0-5) /lpf U Epithel Cells (Auto) 10-20 H (0-5) /lpf Urine Bacteria (Auto) Negative (Negative) COVID-19 Eval Order Covid19 at [facility] SARS-CoV-2 (PCR) NEGATIVE (Negative) Administered Medications Acetaminophen (Acetaminophen 325 Mg Tab) 650 mg PO Q4H PRN PRN Reason: Pain or Fever Stop: 08/04/21 07:54 Last Admin: 07/06/21 21:50 Dose: 650 mg Documented by: [id number] Admin: 07/06/21 10:50 Dose: 650 mg Documented by: [id number] Admin: 07/05/21 21:03 Dose: 650 mg Documented by: [id number] Aspirin (Aspirin 81 Mg Ectab) 81 mg PO DAILY JOVI Stop: 08/04/21 08:59 Last Admin: 07/07/21 08:27 Dose: 81 mg Documented by: [id number] Admin: 07/06/21 09:11 Dose: 81 mg Documented by: [id number] Admin: 07/05/21 09:20 Dose: 81 mg Documented by: [id number] Atorvastatin Calcium (Atorvastatin 10 Mg Tab) 10 mg PO HS JOVI Stop: 08/04/21 20:59 Last Admin: 07/06/21 21:42 Dose: 10 mg Documented by: [id number] Admin: 07/05/21 20:23 Dose: 10 mg Documented by: [id number] Calcium Carbonate (Calcium Carbonate 1250mg Tab) 1,250 mg PO DAILY JOVI Stop: 08/04/21 08:59 Last Admin: 07/07/21 08:27 Dose: 1,250 mg Documented by: [id number] Admin: 07/06/21 09:12 Dose: 1,250 mg Documented by: [id number] Admin: 07/05/21 09:20 Dose: 1,250 mg Documented by: [id number] Fluticasone/Vilanterol (Fluticasone/Vilanterol 100/25mcg 14 Puffs/Inhaler) 1 puffs INH DAILY JOVI Stop: 08/04/21 08:59 Last Admin: 07/07/21 08:27 Dose: 1 puffs Documented by: [id number] Admin: 07/06/21 09:09 Dose: 1 puffs Documented by: [id number] Admin: 07/05/21 09:20 Dose: 1 puffs Documented by: [id number] Heparin Sodium (Porcine) (Heparin Sod 5,000 Unit/0.5 Ml Vial) 7,500 units SQ Q12H JOVI Stop: 08/05/21 20:59 Last Admin: 07/07/21 08:28 Dose: 7,500 units Documented by: [id number] Admin: 07/06/21 21:41 Dose: 7,500 units Documented by: [id number] Insulin Aspart (Insulin Aspart 100 Units/Ml 3 Ml Pen) 0 units SC ACHS JOVI Stop: 08/04/21 07:54 Last Admin: 07/07/21 12:02 Dose: 3 units Documented by: [id number] Cosigned by: [id number] Admin: 07/07/21 08:28 Dose: Not Given Documented by: [id number] Admin: 07/06/21 20:28 Dose: Not Given Documented by: [id number] Admin: 07/06/21 16:59 Dose: 2 units Documented by: [id number] Cosigned by: [id number] Admin: 07/06/21 12:07 Dose: 2 units Documented by: [id number] Cosigned by: [id number] Admin: 07/06/21 09:15 Dose: 3 units Documented by: [id number] Cosigned by: [id number] Admin: 07/05/21 20:25 Dose: 1 units Documented by: [id number] Cosigned by: [id number] Admin: 07/05/21 17:15 Dose: 2 units Documented by: [id number] Cosigned by: [id number] Admin: 07/05/21 12:13 Dose: 3 units Documented by: [id number] Cosigned by: [id number] Admin: 07/05/21 09:22 Dose: 2 units Documented by: [id number] Cosigned by: [id number] Lisinopril (Lisinopril 20 Mg Tab) 20 mg PO BID JOVI Stop: 08/05/21 20:59 Last Admin: 07/07/21 08:26 Dose: 20 mg Documented by: [id number] Admin: 07/06/21 21:43 Dose: 20 mg Documented by: [id number] Metoprolol Tartrate (Metoprolol Tartrate 25 Mg Tab) 25 mg PO BID JOVI Stop: 08/06/21 08:59 Last Admin: 07/07/21 10:37 Dose: 25 mg Documented by: [id number] Montelukast Sodium (Montelukast Sodium 10 Mg Tablet) 10 mg PO HS JOVI Stop: 08/04/21 20:59 Last Admin: 07/06/21 21:43 Dose: 10 mg Documented by: [id number] Admin: 07/05/21 21:02 Dose: 10 mg Documented by: [id number] Pantoprazole Sodium (Pantoprazole 40 Mg Tab) 40 mg PO DAILY JOVI Stop: 08/04/21 08:59 Last Admin: 07/07/21 08:27 Dose: 40 mg Documented by: [id number] Admin: 07/06/21 09:12 Dose: 40 mg Documented by: [id number] Admin: 07/05/21 09:20 Dose: 40 mg Documented by: [id number] Polysaccharide Iron Complex (Iron Polysaccharide Complex 150 Mg Capsule) 150 mg PO DAILY JOVI Stop: 08/04/21 08:59 Last Admin: 07/07/21 08:29 Dose: 150 mg Documented by: [id number] Admin: 07/06/21 09:11 Dose: 150 mg Documented by: [id number] Admin: 07/05/21 09:20 Dose: 150 mg Documented by: [id number] Quetiapine Fumarate (Quetiapine Fumarate 25 Mg Tablet) 50 mg PO JOVI Stop: 08/04/21 20:59 Last Admin: 07/06/21 21:42 Dose: 50 mg Documented by: [id number] Admin: 07/05/21 20:22 Dose: 50 mg Documented by: [id number] Tramadol HCl (Tramadol Hcl 50 Mg Tablet) 50 mg PO Q8H PRN PRN Reason: Moderate Pain Stop: 08/04/21 07:54 Last Admin: 07/06/21 12:06 Dose: 50 mg Documented by: [id number] Vitamin D (Cholecalciferol 1,000 Units 25 Mcg Tab) 5,000 units PO DAILY JOVI Stop: 08/04/21 08:59 Last Admin: 07/07/21 08:27 Dose: 5,000 units Documented by: [id number] Admin: 07/06/21 09:12 Dose: 5,000 units Documented by: [id number] Admin: 07/05/21 09:20 Dose: 5,000 units Documented by: [id number] Discontinued Medications Albuterol (Albuterol Hfa 8 Gm Inhaler) 2 puffs INH Q6R PRN PRN Reason: SOB and wheezing Stop: 08/04/21 23:42 Last Admin: 07/07/21 11:14 Dose: 2 puffs Documented by: [id number] Admin: 07/06/21 00:00 Dose: 2 puffs Documented by: [id number] Amlodipine Besylate (Amlodipine Besylate 5 Mg Tab) 5 mg PO QAM JOVI Stop: 08/04/21 17:29 Last Admin: 07/06/21 10:50 Dose: 5 mg Documented by: [id number] Admin: 07/05/21 18:15 Dose: 5 mg Documented by: [id number] Furosemide (Furosemide 40 Mg/4 Ml Vial) 40 mg IV NOW STA Stop: 07/05/21 05:08 Last Admin: 07/05/21 05:23 Dose: 40 mg Documented by: [id number] Heparin Sodium (Porcine) (Heparin Sod 5,000 Unit/0.5 Ml Vial) 7,500 units SQ Q8 JOVI Stop: 08/04/21 13:59 Last Admin: 07/06/21 06:14 Dose: 7,500 units Documented by: [id number] Admin: 07/05/21 21:43 Dose: 7,500 units Documented by: [id number] Admin: 07/05/21 14:30 Dose: 7,500 units Documented by: [id number] Albumin Human (Albumin 25%) 12.5 gm in 50 mls @ 50 mls/hr IV Q1H JOVI Stop: 07/05/21 09:59 Last Infusion: 07/05/21 12:31 Dose: 0 mls/hr Documented by: [id number] Admin: 07/05/21 11:31 Dose: 50 mls/hr Documented by: [id number] Infusion: 07/05/21 11:31 Dose: 50 mls/hr Documented by: [id number] Admin: 07/05/21 10:45 Dose: 50 mls/hr Documented by: [id number] Infusion: 07/05/21 10:43 Dose: 0 mls/hr Documented by: [id number] Admin: 07/05/21 09:58 Dose: 50 mls/hr Documented by: [id number] Infusion: 07/05/21 09:56 Dose: 0 mls/hr Documented by: [id number] Admin: 07/05/21 09:11 Dose: 50 mls/hr Documented by: [id number] Metoprolol Tartrate (Metoprolol Tartrate 50 Mg Tab) 50 mg PO BID JOVI Stop: 08/04/21 08:59 Last Admin: 07/06/21 21:43 Dose: 50 mg Documented by: [id number] Admin: 07/06/21 09:12 Dose: 50 mg Documented by: [id number] Admin: 07/05/21 20:22 Dose: 50 mg Documented by: [id number] Admin: 07/05/21 09:20 Dose: 50 mg Documented by: [id number] Discharge Plan Visit Data Chief Complaint: Shortness of Breath/Dyspnea Stated Complaint: sob ED Provider: Sterling Donnelly Discharge Problem: Acute congestive heart failure Patient Disposition: Admitted As Inpatient Discharge Instructions Interventions: ED Discharge Assessment Last Done: 07/05/21 06:41 Discharge Problem: Acute congestive heart failure Qualifiers: Heart failure type: unspecified Qualified Code(s): I50.9 - Heart failure, unspecified
[2021-07-05 04:09] LABS: Basophils # (auto) 0.04 K/uL (0-0.2); Basophils % (auto) 0.4 %; Eosinophils # (auto) 0.71 K/uL (0-0.5); Eosinophils % (auto) 6.9 %; Hematocrit (blood only) 30.7 % (37-47); Immature Granulocytes # (auto) 0.03 K/uL (0.00-0.02); Immature Granulocytes % (auto) 0.3 %; Lymphocytes # (auto) 1.69 K/uL (1.2-3.4); Lymphocytes % (auto) 16.4 %; Mean Corpuscular Hemoglobin 24.7 pg (25-34); Mean Corpuscular Hgb Conc 29.3 g/dL (32-36); Mean Corpuscular Volume 84.1 fL (80-100); Mean Platelet Volume 8.9 fL (7.4-10.4); Monocytes # (auto) 0.83 K/uL (0.11-0.59); Monocytes % (auto) 8.1 %; Neutrophils # (auto) 6.99 K/uL (1.4-6.5); Neutrophils % (auto) 67.9 %; Platelet Count 352 K/uL (130-400); RDW Coefficient of Variation 17.2 % (11.5-14.5); RDW Standard Deviation 53.5 fL (36.4-46.3); Red Blood Count 3.65 M/uL (4.2-5.4); White Blood Count 10.29 K/uL (4.8-10.8)
[2021-07-05 04:31] LABS: Appearance Urine Clear (Clear); Bacteria Urine Automated Negative (Negative); Bilirubin Urine Negative (Negative); Blood Urine Negative (Negative); Color Urine Yellow; Glucose Urine UA Negative (Negative); Ketones Urine Negative (Negative); Leukocyte Esterase Urine 2+ (Negative); Nitrite Urine Negative (Negative); Protein Urine 1+ (Negative); RBC Urine Automated 0-4 /hpf (0-4); Specific Gravity Urine 1.013 (1.000-1.030); Urobilinogen Urine Negative (Negative); WBC Urine Automated >30 /hpf (0-5)
[2021-07-05 04:36] LABS: Alanine Aminotransferase 17 U/L (12-78); Albumin Level 2.9 gm/dl (3.4-5.0); Aspartate Aminotransferase 11 U/L (15-37); BUN Creatinine Ratio 16.8 (10-20); Bilirubin Direct < 0.1 mg/dl (0-0.2); Blood Urea Nitrogen 24 mg/dl (7-18); Calcium 9.2 mg/dl (8.5-10.1); Carbon Dioxide 29 mmol/L (21-32); Chloride 109 mmol/L (98-107); Creatinine Clr Calc Pharmacy 35.8 ml/min; Est GFR (African American) 39.9 ml/min; Est GFR (Non-African American) 34.4 ml/min; Glucose 129 mg/dl (70-99); Lipase 157 U/L (73-393); Potassium 4.9 mmol/L (3.5-5.1); Sodium 139 mmol/L (136-145)
[2021-07-05 04:42] LABS: Alkaline Phosphatase 105 U/L (45-117); Bilirubin,Total 0.2 mg/dl (0.2-1); NT Pro B Type Natriuretic Pept 4717 pg/ml (0-1800); Total Protein 6.8 gm/dl (6.4-8.2); Troponin I < 0.015 ng/ml (0-0.045)
[2021-07-05] MEDS ORDERED: FUROSEMIDE 40 MG/4 ML VIAL IV STA (05:07)
--- NOTE | 2021-07-05 06:13 | History & Physical Report ---
Date of Service July 05, 2021 Assessment & Plan (1) CHF (congestive heart failure): Plan: The patient will be admitted to telemetry for serial cardiac enzymes, serial EKG's, cardiac rhythm monitoring and a 2-D echocardiogram with Dopplers. CHF/left pleural effusion/peripheral edema/hypertension- Due to borderline blood pressure, hold amlodipine, oral furosemide, lisinopril. Continue metoprolol tartrate 50 mg p.o. twice daily with hold parameters Given Lasix 40 mg IV by the ED. due to borderline blood pressure gave albumin [address] on Lasix 40 mg IV every morning (2) Pleural effusion: Plan: See above (3) Peripheral edema: Plan: See above (4) Hypertension: Plan: See above (5) CKD (chronic kidney disease), stage III: Plan: Creatinine 1.40 point [place], with range 1.45-1.84. Follow daily laboratories (6) Type 2 diabetes mellitus: Plan: Hold Metformin and glipizide. Place on Accu-Cheks AC and at bedtime with NovoLog coverage per scale Check hemoglobin A1c (7) Mood disorder: Plan: Continue Seroquel 50 mg p.o. at bedtime (8) Obstructive sleep apnea: Plan: CPAP at bedtime as needed (9) Peripheral neuropathy: Plan: Tramadol 50 mg p.o. every 8 hours as needed (10) Hyperlipidemia: Plan: Continue atorvastatin History of Present Illness Chief Complaint: The patient presents to the emergency department with 1 week of progressively worsening generalized weakness, shortness of breath, dyspnea on exertion and increased swelling of bilateral lower extremities Primary Care Provider: Renee Arias MD The patient is a 85-year old female with a past medical history including chronic renal insufficiency, peripheral edema, prolapse of female pelvic organs, anemia, laexandr B12 deficiency, chronic low back pain, asthma, benign essential tremor, chronic cerebral ischemia, hyperlipidemia, mood disorder, JOSEFINA, osteoarthritis, peripheral neuropathy, vitamin D deficiency, diabetes mellitus type 2 and hypertension. She presents with symptoms as noted above. Work-up in the emergency department included chest x-ray suggestive of mild CHF and left pleural effusion. Allergies Allergy/AdvReac Type Severity Reaction Status Date / Time coconut Allergy Intermediate Rash Verified 07/02/21 08:54 peanut Allergy Intermediate Rash Verified 07/02/21 08:54 oxycodone [From OxyContin] AdvReac hallucinati Verified 07/02/21 08:54 on Home Medications Medication Instructions Recorded Confirmed Type nystatin 100,000 unit/gram topical 1 appln TOP BID PRN #30 gm 05/23/19 07/02/21 Rx powder (Nystop) aspirin 81 mg tablet,delayed 81 mg PO DAILY #90 tab 06/12/20 07/02/21 Rx release (Aspirin Low Dose) calcium carbonate-vitamin D3 500 1 tab PO DAILY #90 tab 06/12/20 07/02/21 Rx mg (1,250 mg)-600 unit tablet methyl salicylate 15 %-menthol 10 1 applic TOPICAL BID PRN #57 g 09/12/20 07/02/21 Rx % topical cream (Bengay Greaseless) tramadol 50 mg tablet 50 mg PO Q8H PRN #90 tab 10/03/20 07/02/21 Rx amlodipine 5 mg tablet 5 mg PO DAILY #90 tab 02/04/21 07/02/21 Rx metformin 500 mg tablet 500 mg PO BID #180 tab 03/06/21 07/02/21 Rx furosemide 20 mg tablet (Lasix) 20 mg PO .COMPLEX #90 tab 03/20/21 07/02/21 Rx acetaminophen 325 mg tablet 650 mg PO Q4H PRN #120 tab 05/26/21 07/02/21 Rx atorvastatin 10 mg tablet 10 mg PO HS #90 tab 05/26/21 07/02/21 Rx cyanocobalamin (vitamin B-12) 1,000 mcg IM MONTHLY #1 ml 05/26/21 07/02/21 Rx 1,000 mcg/mL injection solution glimepiride 1 mg tablet 1 mg PO QAM #90 tab 05/26/21 07/02/21 Rx lisinopril 20 mg tablet 20 mg PO BID #180 tab 05/26/21 07/02/21 Rx metoprolol tartrate 50 mg tablet 50 mg PO BID #180 tab 05/26/21 07/02/21 Rx montelukast 10 mg tablet 10 mg PO HS #90 tab 05/26/21 07/02/21 Rx pantoprazole 40 mg tablet,delayed 40 mg PO DAILY #90 tab 05/26/21 07/02/21 Rx release quetiapine 50 mg tablet 50 mg PO HS #90 tab 05/26/21 07/02/21 Rx albuterol sulfate 90 mcg/actuation 2 puff INHALATION Q6H PRN #8.5 g 06/27/21 07/02/21 Rx aerosol inhaler fluticasone 100 mcg-salmeterol 50 1 inh INHALATION BID #180 ea 06/27/21 07/02/21 Rx mcg/dose blistr powdr for inhalation (Advair Diskus) cholecalciferol (vitamin D3) 125 125 mcg PO DAILY #90 tab 07/01/21 07/02/21 Rx mcg (5,000 unit) tablet polysaccharide iron complex 150 mg 150 mg PO DAILY #90 cap 07/01/21 07/02/21 Rx iron capsule (Ferrex) Past Med/Surg History Medical History (Updated 07/05/21 @ 06:31 by Og Grewal MD) Anemia Asthma Benign essential tremor Chronic cerebral ischemia Chronic low back pain Chronic renal insufficiency CKD (chronic kidney disease), stage III Hyperlipidemia Hypertension Mood disorder Obstructive sleep apnea s/p UPPP surgery Osteoarthritis Osteopenia Peripheral edema Peripheral neuropathy Prolapse of female pelvic organs Type 2 diabetes mellitus Vitamin B12 deficiency Vitamin D deficiency Surgical History H/O wisdom tooth extraction History of knee replacement R and L History of tonsillectomy and adenoidectomy S/P appendectomy S/P cholecystectomy S/P uvulopalatopharyngoplasty S/P vaginal hysterectomy unsure if ovaries were left Family History Sister Liver cancer Denies family history of Ovarian cancer Breast cancer Colorectal cancer Uterine cancer Social History (Updated 02/04/21 @ 13:26 by Yessica Merrill MA) Smoking Status: Never smoker Second Hand Exposure: No; Hx Alcohol Use: No Hx Substance Use: No Hearing Ability: Normal Field Secretary Required: No marital status: / Current Living Situation: Alone and Personal Care Facility Current Living Situation Comment: [facility] [employer] current occupational status: retired Feels Safe at Home: Yes caffeine: No Physical Activity Frequency: Does not Exercise Seatbelt Use: always Review of Systems Review of Systems: The patient denies chest pain, palpitations, cough, sore throat, fevers, chills, sweats, nausea, vomiting, diarrhea , constipation, abdominal pain, pelvic pain, blood in urine or stool, dysuria, urinary frequency or urgency, lightheadedness, dizziness, headache, memory loss, loss of consciousness, rash, abnormal bruising or bleeding, focal weakness, numbness or tingling in arms or legs, neck pain, or night sweats. The review of systems is otherwise negative other than for that already noted above, and at least 10 systems have been reviewed. Physical Exam Physical Exam: The patient is awake, alert and oriented 3, well developed and well nourished, normocephalic and atraumatic, lying in bed and in no acute distress. HEENT--PERRL, EOMI, mucous membranes and oropharynx normal Neck--supple. No JVD. No bruits. Thyroid normal, trachea midline, no adenopathy. Heart--normal S1 and S2. No murmurs, rubs or gallops. Lungs--crackles at the bases bilaterally. No respiratory distress, no accessory muscle use. Abdomen--normal bowel sounds and soft. Nontender. Nondistended. Morbid obesity. Extremities--no cyanosis or clubbing. 3+ bilateral pretibial pitting edema. Dermatologic--normal skin turgor, normal color, no abnormal lymph nodes, no rash. Neurologic--cranial nerves II through XII grossly intact. Rheumatologic--normal range of motion. Psychiatric--normal affect. Results & Data Results & Data ([facility]) Vital Signs (Past 12 Hours) Vital Signs Temp Pulse Pulse Resp BP BP Pulse Ox 07/05/21 05:40 61 18 07/05/21 05:30 52 L 19 95 07/05/21 05:20 55 L 20 95 07/05/21 05:13 57 L 18 99/80 L 94 07/05/21 05:10 57 L 15 93 07/05/21 05:02 53 L 24 95 07/05/21 04:30 56 L 19 98 07/05/21 04:20 57 L 23 97 07/05/21 04:10 63 20 07/05/21 04:01 58 L 14 07/05/21 03:58 98.4 F 56 L 55 L 19 197/76 H 94 Laboratory Results Laboratory Results WBC 10.29 K/uL (4.8-10.8) 07/05/21 03:50 RBC 3.65 M/uL (4.2-5.4) L 07/05/21 03:50 Hgb 9.0 g/dL (12.0-16.0) L 07/05/21 03:50 Hct 30.7 % (37-47) L 07/05/21 03:50 MCV 84.1 fL (80-100) 07/05/21 03:50 MCH 24.7 pg (25-34) L 07/05/21 03:50 MCHC 29.3 g/dL (32-36) L 07/05/21 03:50 RDW Std Deviation 53.5 fL (36.4-46.3) H 07/05/21 03:50 RDW Coeff of Shama 17.2 % (11.5-14.5) H 07/05/21 03:50 Plt Count 352 K/uL (130-400) 07/05/21 03:50 MPV 8.9 fL (7.4-10.4) 07/05/21 03:50 Immature Gran % (Auto) 0.3 % 07/05/21 03:50 Neut % (Auto) 67.9 % 07/05/21 03:50 Lymph % (Auto) 16.4 % 07/05/21 03:50 [place] % (Auto) 8.1 % 07/05/21 03:50 Eos % (Auto) 6.9 % 07/05/21 03:50 Baso % (Auto) 0.4 % 07/05/21 03:50 Neut # (Auto) 6.99 K/uL (1.4-6.5) H 07/05/21 03:50 Lymph # (Auto) 1.69 K/uL (1.2-3.4) 07/05/21 03:50 [place] # (Auto) 0.83 K/uL (0.11-0.59) H 07/05/21 03:50 Eos # (Auto) 0.71 K/uL (0-0.5) H 07/05/21 03:50 Baso # (Auto) 0.04 K/uL (0-0.2) 07/05/21 03:50 Immature Gran # (Auto) 0.03 K/uL (0.00-0.02) H 07/05/21 03:50 PT 10.0 Seconds (9.0-12.0) 07/05/21 03:50 INR 1.0 (0.9-1.1) 07/05/21 03:50 Sodium 139 mmol/L (136-145) 07/05/21 03:50 Potassium 4.9 mmol/L (3.5-5.1) 07/05/21 03:50 Chloride 109 mmol/L (98-107) H 07/05/21 03:50 Carbon Dioxide 29 mmol/L (21-32) 07/05/21 03:50 Anion Gap 1.0 (3-11) L 07/05/21 03:50 BUN 24 mg/dl (7-18) H 07/05/21 03:50 Creatinine 1.40 mg/dl (0.6-1.2) H 07/05/21 03:50 Est Cr Clr Drug Dosing 35.8 ml/min 07/05/21 03:50 Est GFR ( Amer) 39.9 ml/min 07/05/21 03:50 Est GFR (Non-Af Amer) 34.4 ml/min 07/05/21 03:50 BUN/Creatinine Ratio 16.8 (10-20) 07/05/21 03:50 Glucose 129 mg/dl (70-99) H 07/05/21 03:50 Calcium 9.2 mg/dl (8.5-10.1) 07/05/21 03:50 Magnesium 2.0 mg/dl (1.8-2.4) 07/05/21 03:50 Total Bilirubin 0.2 mg/dl (0.2-1) 07/05/21 03:50 Direct Bilirubin < 0.1 mg/dl (0-0.2) 07/05/21 03:50 AST 11 U/L (15-37) L 07/05/21 03:50 ALT 17 U/L (12-78) 07/05/21 03:50 Alkaline Phosphatase 105 U/L (45-117) 07/05/21 03:50 Troponin I < 0.015 ng/ml (0-0.045) 07/05/21 03:50 NT-Pro-B Natriuret Pep 4717 pg/ml (0-1800) H 07/05/21 03:50 Total Protein 6.8 gm/dl (6.4-8.2) 07/05/21 03:50 Albumin 2.9 gm/dl (3.4-5.0) L 07/05/21 03:50 Lipase 157 U/L (73-393) 07/05/21 03:50 Urine Color Yellow 07/05/21 04:15 Urine Appearance Clear (Clear) 07/05/21 04:15 Urine pH 5.0 (4.5-7.5) 07/05/21 04:15 Ur Specific [place] 1.013 (1.000-1.030) 07/05/21 04:15 Urine Protein 1+ (Negative) H 07/05/21 04:15 Urine Glucose (UA) Negative (Negative) 07/05/21 04:15 Urine Ketones Negative (Negative) 07/05/21 04:15 Urine Blood Negative (Negative) 07/05/21 04:15 Urine Nitrite Negative (Negative) 07/05/21 04:15 Urine Bilirubin Negative (Negative) 07/05/21 04:15 Urine Urobilinogen Negative (Negative) 07/05/21 04:15 Ur Leukocyte Esterase 2+ (Negative) H 07/05/21 04:15 Urine WBC (Auto) >30 /hpf (0-5) H 07/05/21 04:15 Urine RBC (Auto) 0-4 /hpf (0-4) 07/05/21 04:15 U Hyaline Cast (Auto) 1-5 /lpf (0-5) 07/05/21 04:15 U Epithel Cells (Auto) 10-20 /lpf (0-5) H 07/05/21 04:15 Urine Bacteria (Auto) Negative (Negative) 07/05/21 04:15 COVID-19 Eval Order Covid19 at [facility] 07/05/21 04:15 SARS-CoV-2 (PCR) NEGATIVE (Negative) 07/05/21 04:15 Code Status & VTE Plan Code Status Full code VTE Prophylaxis Plan VTE Prophylaxis will be ordered: Yes PG Care Time/CCT Total # of Minutes Spent Total Time Spent with Patient: Total time spent is greater than 50% in coordination of care (as documented) at patient's floor/unit and/or counseling patient: Coding Level of Care Code 55833 Initial Inpt Care Lvl 3 Diagnoses CKD (chronic kidney disease), stage III N18.30 Peripheral edema R60.9 Hyperlipidemia E78.5 Mood disorder F39 Obstructive sleep apnea G47.33 Peripheral neuropathy G62.9 Hypertension I10 Type 2 diabetes mellitus E11.9 Pleural effusion J90 CHF (congestive heart failure) I50.9
[2021-07-05] MEDS ORDERED: CARBOHYDRATES FOR HYPOGLYCEMIA PO PRN (07:55)
[2021-07-05] MEDS ORDERED: ONDANSETRON INJ 2 MG/ML 2 ML VIAL IV PRN (07:55)
[2021-07-05] MEDS ORDERED: traMADol HCL 50 MG TABLET PO PRN (07:55)
[2021-07-05] MEDS ORDERED: NITROGLYCERIN SL 0.4 MG/TAB TAB SL PRN (07:55)
[2021-07-05] MEDS ORDERED: GLUCOSE 10 TABS/TUBE PO PRN (07:55)
[2021-07-05] MEDS ORDERED: GLUCOSE 40% GEL 15 GM TUBE PO PRN (07:55)
[2021-07-05] MEDS ORDERED: DEXTROSE 50% 50 ML SYRINGE IV PRN (07:55)
[2021-07-05] MEDS ORDERED: GLUCAGON FOR INJ 1 MG VIAL SQ PRN (07:55)
[2021-07-05] MEDS: ALBUMIN 25% 12.5 GM/50 ML VIAL IV SCH ×4 (09:11→11:31)
[2021-07-05] MEDS: ASPIRIN 81 MG ECTAB PO SCH (09:20)
[2021-07-05] MEDS: FLUTICASONE/VILANTEROL 100/25MCG 14 PUFFS/INHALER INH SCH (09:20)
[2021-07-05] MEDS: CHOLECALCIFEROL 1,000 UNITS 25 MCG TAB PO SCH (09:20)
[2021-07-05] MEDS: PANTOprazole 40 MG TAB PO SCH (09:20)
[2021-07-05] MEDS: IRON POLYSACCHARIDE COMPLEX 150 MG CAPSULE PO SCH (09:20)
[2021-07-05] MEDS: CALCIUM CARBONATE 1250MG TAB PO SCH (09:20)
[2021-07-05] MEDS: METOPROLOL TARTRATE 50 MG TAB PO SCH ×2 (09:20→20:22)
[2021-07-05] MEDS: INSULIN ASPART 100 UNITS/ML 3 ML PEN SC SCH ×4 (09:22→20:25)
--- NOTE | 2021-07-05 09:30 | XRay Report ---
XR chest 1V portable INDICATION: Dyspnea. TECHNIQUE: Single frontal radiograph of the chest was obtained. Comparison: Comparison is made to chest 2 views 01/14/2021 FINDINGS: No lines and tubes are seen. The aorta is tortuous. The remainder of the cardiomediastinal silhouette is unremarkable. The lungs are clear. No evidence of pleural effusion or pneumothorax. IMPRESSION: No acute chest disease. ACT 112: Negative or not required by law. Electronically signed by: Moises Gregorio M.D. 07/05/2021 9:29 AM
[2021-07-05 09:42] LABS: Chol HDL Ratio 2; Cholesterol 128 mg/dl (0-200); HDL Cholesterol 73 mg/dl; LDL Cholesterol Calculated 35 mg/dl; Triglycerides 102 mg/dl (0-150); Troponin I < 0.015 ng/ml (0-0.045); VLDL Cholesterol 20 mg/dl
[2021-07-05 10:05] LABS: Estimated Average Glucose 160 mg/dl; Hemoglobin A1C 7.2 % (4.5-5.6)
[2021-07-05] MEDS: HEPARIN SOD 5,000 UNIT/0.5 ML VIAL SQ SCH ×2 (14:30→21:43)
--- NOTE | 2021-07-05 17:42 | Hospitalist Progress Note ---
Date of Service July 05, 2021 Assessment & Plan (1) CHF (congestive heart failure): Plan: Unclear diagnosis given CXR is actually clean. - Continue metoprolol tartrate 50 mg p.o. twice daily - Continue Lasix 40 mg IV daily - Echo ordered -> None in computer. Presently still seems mildly hypervolemic. (2) Hypertension: Plan: Initially with lower BP (100/60). Meds were held, and then her BP on was 180/75. Not symptomatic at all though. - Restarted amlodipine - Will restart lisinopril tomorrow (3) CKD (chronic kidney disease), stage III: Plan: Creatinine 1.40 on admission, with range 1.45-1.84. - Follow daily laboratories (4) Type 2 diabetes mellitus: Plan: A1c was 7.2% this admission. - Hold Metformin and glipizide. - Place on Accu-Cheks AC and at bedtime with NovoLog coverage per scale (5) Asthma: Plan: No wheezing to indicate exacerbation. - Continue home maintenance inhaler (or hospital formulary) - DuoNebs PRN (6) Mood disorder: Plan: - Continue Seroquel 50 mg p.o. at bedtime (7) Obstructive sleep apnea: Plan: - CPAP at bedtime as needed (8) Peripheral neuropathy: Plan: - Continue home tramadol 50 mg p.o. every 8 hours as needed (9) Hyperlipidemia: Plan: - Continue atorvastatin (10) DVT prophylaxis: Plan: Heparin 7,500 units SQ BID Admission and Anticipated Discharge Date Admission Date: July 05, 2021 Subjective Doing better today. Reports no fevers/chills, chest pain, shortness of breath, abdominal pain, nausea, or vomiting. Results & Data Results & Data ([facility]) Vital Signs (Past 12 Hours) Vital Signs Temp Pulse Pulse Resp BP Pulse Ox Pulse Ox 07/05/21 16:28 62 07/05/21 10:44 37.0 C 53 L 20 171/74 H 94 07/05/21 08:00 61 07/05/21 07:55 160/67 H 100 07/05/21 07:17 36.9 C 58 L 22 193/77 H 100 07/05/21 05:40 61 18 07/05/21 05:30 52 L 19 95 PG Care Time/CCT Total # of Minutes Spent Total Time Spent with Patient: Total time spent is greater than 50% in coordination of care (as documented) at patient's floor/unit and/or counseling patient: Coding Level of Care Code 33087 Subseq Hosp Care Lvl 3 Diagnoses CHF (congestive heart failure) I50.9 Hypertension I10 CKD (chronic kidney disease), stage III N18.30 Type 2 diabetes mellitus E11.9 Mood disorder F39 Obstructive sleep apnea G47.33 Peripheral neuropathy G62.9 Hyperlipidemia E78.5 DVT prophylaxis Z29.9 Asthma J45.909
[2021-07-05] MEDS: amLODIPine BESYLATE 5 MG TAB PO SCH (18:15)
[2021-07-05] MEDS: QUEtiapine FUMARATE 25 MG TABLET PO SCH (20:22)
[2021-07-05] MEDS: ATORVASTATIN 10 MG TAB PO SCH (20:23)
[2021-07-05] MEDS: MONTELUKAST SODIUM 10 MG TABLET PO SCH (21:02)
[2021-07-05] MEDS: ACETAMINOPHEN 325 MG TAB PO PRN (21:03)
[2021-07-06] MEDS: ALBUTEROL HFA 8 GM INHALER INH PRN
[2021-07-06 05:56] LABS: Basophils # (auto) 0.02 K/uL (0-0.2); Basophils % (auto) 0.2 %; Eosinophils # (auto) 0.76 K/uL (0-0.5); Eosinophils % (auto) 8.1 %; Hematocrit (blood only) 28.7 % (37-47); Hemoglobin 8.6 g/dL (12.0-16.0); Immature Granulocytes # (auto) 0.02 K/uL (0.00-0.02); Immature Granulocytes % (auto) 0.2 %; Lymphocytes # (auto) 1.69 K/uL (1.2-3.4); Mean Corpuscular Volume 83.4 fL (80-100); Mean Platelet Volume 8.9 fL (7.4-10.4); Monocytes # (auto) 0.91 K/uL (0.11-0.59); Monocytes % (auto) 9.7 %; Neutrophils # (auto) 5.98 K/uL (1.4-6.5); Neutrophils % (auto) 63.8 %; Platelet Count 318 K/uL (130-400); RDW Coefficient of Variation 17.3 % (11.5-14.5); RDW Standard Deviation 52.8 fL (36.4-46.3); Red Blood Count 3.44 M/uL (4.2-5.4); White Blood Count 9.38 K/uL (4.8-10.8)
[2021-07-06] MEDS: HEPARIN SOD 5,000 UNIT/0.5 ML VIAL SQ SCH ×2 (06:14→21:41)
[2021-07-06 06:34] LABS: Albumin Level 3.2 gm/dl (3.4-5.0); BUN Creatinine Ratio 16.9 (10-20); Creatinine Clr Calc Pharmacy 35.3 ml/min; Est GFR (African American) 40.2 ml/min; Est GFR (Non-African American) 34.7 ml/min; Potassium 4.7 mmol/L (3.5-5.1)
[2021-07-06 06:37] LABS: Albumin Globulin Ratio 0.9 (0.9-2); Bilirubin,Total 0.4 mg/dl (0.2-1); Globulin 3.4 gm/dl (2.5-4.0); Total Protein 6.6 gm/dl (6.4-8.2)
[2021-07-06] MEDS ORDERED: FUROSEMIDE 40 MG in SYRINGE 0 ML IV SCH (09:00)
[2021-07-06] MEDS: FLUTICASONE/VILANTEROL 100/25MCG 14 PUFFS/INHALER INH SCH (09:09)
[2021-07-06] MEDS: ASPIRIN 81 MG ECTAB PO SCH (09:11)
[2021-07-06] MEDS: IRON POLYSACCHARIDE COMPLEX 150 MG CAPSULE PO SCH (09:11)
[2021-07-06] MEDS: CALCIUM CARBONATE 1250MG TAB PO SCH (09:12)
[2021-07-06] MEDS: PANTOprazole 40 MG TAB PO SCH (09:12)
[2021-07-06] MEDS: CHOLECALCIFEROL 1,000 UNITS 25 MCG TAB PO SCH (09:12)
[2021-07-06] MEDS: METOPROLOL TARTRATE 50 MG TAB PO SCH ×2 (09:12→21:43)
[2021-07-06] MEDS: INSULIN ASPART 100 UNITS/ML 3 ML PEN SC SCH ×4 (09:15→20:28)
[2021-07-06] MEDS: amLODIPine BESYLATE 5 MG TAB PO SCH (10:50)
[2021-07-06] MEDS: ACETAMINOPHEN 325 MG TAB PO PRN ×2 (10:50→21:50)
--- NOTE | 2021-07-06 11:29 | XCELERA ---
[id number]
--- NOTE | 2021-07-06 12:41 | Hospitalist Progress Note ---
Date of Service July 06, 2021 Assessment & Plan (1) Orthostatic dizziness: Plan: On my interviews on 07/05 & 07/06, she reports orthostatic dizziness is actually why she came to the hospital. This clearly different from H&P & ED note. She describes mild/moderate orthostatic hypotension symptoms. No loss of consciousness or falls. - On 07/06, orthostatic vitals were 180/75 -> 180/80 -> 160/70 (standing) & pulse 55 -> 60 -> 73. No symptoms. - Held Lasix today as her volume status seems euvolemic to mildly hypovolemic. - PT/OT ordered. Pt. lives at the [facility]. - Encourage compression stockings. Will hold calcium channel maribell and restart lisinopril as a way to control BP while minimizing orthostasis. (2) CHF (congestive heart failure): Plan: Uncertain diagnosis given CXR is actually clean. Today (07/06), she actually looks hypovolemic with skin crinkling. - Continue metoprolol tartrate 50 mg p.o. twice daily - Echo ordered -> None in computer. - Held Lasix 40 mg IV on 07/06 -> Can likely restart home dose tomorrow. (3) Hypertension: Plan: Initially with lower BP (100/60). Meds were held, and then her BP on was 180/75. Not symptomatic at all though. - Hold amlodipine for orthostasis - Continue home lisinopril (4) CKD (chronic kidney disease), stage III: Plan: Creatinine 1.40 on admission, with range 1.45-1.84. - Follow daily laboratories -> Stable today. (5) Type 2 diabetes mellitus: Plan: A1c was 7.2% this admission. - Hold metformin and glipizide. - Place on Accu-Cheks AC and at bedtime with NovoLog coverage per scale: BS 130 - 170. (6) Asthma: Plan: No wheezing to indicate exacerbation. - Continue home maintenance inhaler (or hospital formulary) - DuoNebs PRN (7) Mood disorder: Plan: - Continue Seroquel 50 mg p.o. at bedtime (8) Obstructive sleep apnea: Plan: - CPAP at bedtime as needed (9) Peripheral neuropathy: Plan: - Continue home tramadol 50 mg p.o. every 8 hours as needed (10) Hyperlipidemia: Plan: - Continue atorvastatin (11) DVT prophylaxis: Plan: Heparin 7,500 units SQ BID Admission and Anticipated Discharge Date Admission Date: July 05, 2021 Subjective No shortness of breath, no swelling in the legs. Feels well. Reports no fevers/chills, chest pain, shortness of breath, abdominal pain, nausea, or vomiting. Physical Exam Constitutional: WD/WN, vitals as above Eyes: EOM intact bilaterally; no conjunctival abnormality ENMT: external ear and nose normal, oropharynx normal Neck: trachea midline, no thyromegaly normal visual inspection Respiratory: normal respiratory effort, lungs clear to auscultation no respiratory distress Cardiovascular: RRR, no murmur, no edema Actually some mild skin tenting. Gastrointestinal (Abdomen): Inspection/Auscultation: abdomen normal to inspection; abdomen not distended Musculoskeletal: no cyanosis or clubbing, extremities motor strength 5/5 Skin: no rashes, warm and dry Neurologic: moves all extremities and awake Psychiatric: Orientation: alert, oriented to person and cooperative Results & Data Results & Data ([facility]) Vital Signs (Past 12 Hours) Vital Signs Temp Pulse Resp BP BP Pulse Ox 07/06/21 11:41 36.8 C 53 L 20 176/82 H 94 07/06/21 09:24 73 22 161/70 H 98 07/06/21 09:21 54 L 20 179/75 H 96 07/06/21 07:48 36.5 C 51 L 24 175/67 H 95 07/06/21 03:00 36.7 C 88 18 154/81 H 98 PG Care Time/CCT Total # of Minutes Spent Total Time Spent with Patient: Total time spent is greater than 50% in coordination of care (as documented) at patient's floor/unit and/or counseling patient: Coding Level of Care Code 90639 Subseq Hosp Care Lvl 3 Diagnoses CHF (congestive heart failure) I50.9 Hypertension I10 CKD (chronic kidney disease), stage III N18.30 Type 2 diabetes mellitus E11.9 Asthma J45.909 Mood disorder F39 Obstructive sleep apnea G47.33 Peripheral neuropathy G62.9 Hyperlipidemia E78.5 DVT prophylaxis Z29.9 Orthostatic dizziness R42
--- NOTE | 2021-07-06 14:32 | CT Scan Report ---
CT chest diagnostic wo con CT DOSE: 611.19 mGycm HISTORY: Hypoxemia TECHNIQUE: Multiaxial CT images of the chest were performed without contrast. A dose lowering techni que was utilized adhering to the principles of ALARA. COMPARISON: Chest 07/05/2021. FINDINGS: The central airways are patent. No pneumothorax. A 3 mm subpleural nodular density within t he left lung apex on image 19. A 4 mm left lower lobe pulmonary nodule on image 198. Linear densities at the right lower lobe posteriorly favor subsegmental atelectasis or scarring. Otherwise, no focal lung consolidations to suggest pneumonia. There is mild diffuse interlobular septal thickening most p ronounced within the lung apices. This could be chronic or represent developing congestive change. No suspicious lytic or blastic osseous lesions. Limited views of the upper abdomen demonstrate a normal liver, spleen, and adrenal glands. Normal esophagus. No pleural or pericardial effusions. The heart is mildly enlarged. Normal caliber thoracic aorta. Coarse calcifications within the left thyroid lobe . A few prominent mediastinal lymph nodes are noted measuring up to 9 mm in short axis diameter. [place], no significant mediastinal or hilar lymphadenopathy. IMPRESSION: 1. Mild diffuse interlobular septal thickening most pronounced at the lung apices. This could be chronometer tester brett or represent developing congestive change. 2. Mild cardiomegaly. 3. A 4 mm left lower lobe indeterminate pulmonary nodule. Please refer to the chart below for recomme nded follow-up. Please refer to below summary of Fleischner criteria recommendations for follow-up of incidental CT n odules (Freddie Herndon, Guidelines for management of small pulmonary nodules detected on CT scans: A sta tement from the Fleischner Society, Radiology 237: [phone].) SOLID NODULES Solitary nodule size: <6 mm * Low risk patients: no follow-up needed * high risk patients: optional CT at 12 months Solitary nodule size: 6-8 mm * Low risk patients: follow-up at 6-12 months, then consider further follow-up at 18-24 months * high risk patients: initial follow-up CT at 6-12 months and then at 18-24 months if no change Solitary nodule size: >8 mm * either low or high risk patients - consider follow-up CT at 3 months, and/or CT-PET, and/or biopsy Multiple nodules size: <6 mm * Low risk patients: no routine follow-up * high risk patients: optional CT at 12 months Multiple nodules size: 6-8 mm * Low risk patients: follow-up at 3-6 months, then consider further follow-up at 18-24 months * high risk patients: follow-up at 3-6 months, then at 18-24 months if no change Multiple nodules size: >8 mm * Low risk patients: follow-up at 3-6 months, then consider further follow-up at 18-24 months * high risk patients: follow-up at 3-6 months, then at 18-24 months if no change Note: newly detected indeterminate nodule in persons 35 years of age or older. * Low risk patients: minimal or absent history of smoking and/or other known risk factors * high risk patients: history of smoking or of other known risk factors (e.g. first degree relative with lung cancer, or exposure to asbestos, radon, uranium) * if a nodule up to 8 mm is partly solid or is ground glass further follow-up is required after [address] m [address] to exclude possible slow growing adenocarcinoma (GILMER) SUBSOLID NODULES Solitary pure ground-glass nodule * nodule size <6 mm - no CT follow-up required * nodule size >=6 mm - follow-up CT at 6-12 months, then every 2 years until 5 years Solitary part-solid nodule * nodule size <6 mm - no CT follow-up required * nodule size >=6 mm - follow-up CT at 3-6 months. If unchanged, and solid component remains <6 mm, then annual follow-up for 5 years Multiple subsolid nodules * nodule size <6 mm - follow-up CT at 3-6 months, consider further follow-up at 2 and 4 years if sta ble * nodule size >=6 mm - follow-up CT at 3-6 months, subsequent management based on the most suspiciou s nodule(s) ACT 112: Negative or not required by law. Electronically signed by: Chapito Lewis M.D. 07/06/2021 2:31 PM
--- NOTE | 2021-07-06 19:29 | Electrocardiogram Report ---
Test Reason : Blood Pressure : / mmHG Vent. Rate : 052 BPM Atrial Rate : 052 BPM P-R Int : 162 ms QRS Dur : 104 ms QT Int : 448 ms P-R-T Axes : -10 -25 015 degrees QTc Int : 416 ms Sinus bradycardia with sinus arrhythmia Minimal voltage criteria for LVH, may be normal variant Borderline ECG When compared with ECG of 29-JAN-2021 10:19, No significant change was found Confirmed by Supa Esteban ([id number]) on 07/06/2021 7:29:12 PM Referred By: REFERRED SELF Confirmed By:Supa Esteban
--- NOTE | 2021-07-06 19:58 | Electrocardiogram Report ---
Test Reason : Blood Pressure : / mmHG Vent. Rate : 056 BPM Atrial Rate : 056 BPM P-R Int : 164 ms QRS Dur : 104 ms QT Int : 446 ms P-R-T Axes : -21 -42 026 degrees QTc Int : 430 ms Sinus bradycardia Left axis deviation Possible Anterior infarct , age undetermined Abnormal ECG When compared with ECG of 05-JUL-2021 03:32, (unconfirmed) Nonspecific T wave abnormality now evident in Anterior leads Confirmed by Supa Esteban ([id number]) on 07/06/2021 7:58:30 PM Referred By: REFERRED SELF Confirmed By:Supa Esteban
[2021-07-06] MEDS: ATORVASTATIN 10 MG TAB PO SCH (21:42)
[2021-07-06] MEDS: QUEtiapine FUMARATE 25 MG TABLET PO SCH (21:42)
[2021-07-06] MEDS: lisinopril 20 MG TAB PO SCH (21:43)
[2021-07-06] MEDS: MONTELUKAST SODIUM 10 MG TABLET PO SCH (21:43)
[2021-07-07 07:06] LABS: Hematocrit (blood only) 30.1 % (37-47); Hemoglobin 8.7 g/dL (12.0-16.0); Mean Corpuscular Hemoglobin 24.4 pg (25-34); Mean Corpuscular Hgb Conc 28.9 g/dL (32-36); Mean Corpuscular Volume 84.6 fL (80-100); Mean Platelet Volume 8.9 fL (7.4-10.4); Platelet Count 345 K/uL (130-400); RDW Coefficient of Variation 17.1 % (11.5-14.5); Red Blood Count 3.56 M/uL (4.2-5.4); White Blood Count 9.93 K/uL (4.8-10.8)
[2021-07-07 07:12] LABS: BUN Creatinine Ratio 18.4 (10-20); Creatinine Clr Calc Pharmacy 33.6 ml/min; Est GFR (African American) 37.9 ml/min; Est GFR (Non-African American) 32.7 ml/min; Magnesium 1.9 mg/dl (1.8-2.4); Potassium 4.9 mmol/L (3.5-5.1)
[2021-07-07 07:42] LABS: Basophils # (auto) 0.03 K/uL (0-0.2); Basophils % (auto) 0.3 %; Eosinophils # (auto) 0.91 K/uL (0-0.5); Eosinophils % (auto) 9.2 %; Immature Granulocytes # (auto) 0.02 K/uL (0.00-0.02); Immature Granulocytes % (auto) 0.2 %; Lymphocytes # (auto) 1.49 K/uL (1.2-3.4); Monocytes # (auto) 0.86 K/uL (0.11-0.59); Monocytes % (auto) 8.7 %; Neutrophils # (auto) 6.62 K/uL (1.4-6.5); Neutrophils % (auto) 66.6 %; Platelet Estimate CAC (Normal); RBC Morphology Unremarkable
[2021-07-07] MEDS: lisinopril 20 MG TAB PO SCH ×2 (08:26→21:41)
[2021-07-07] MEDS: ASPIRIN 81 MG ECTAB PO SCH (08:27)
[2021-07-07] MEDS: CALCIUM CARBONATE 1250MG TAB PO SCH (08:27)
[2021-07-07] MEDS: CHOLECALCIFEROL 1,000 UNITS 25 MCG TAB PO SCH (08:27)
[2021-07-07] MEDS: FLUTICASONE/VILANTEROL 100/25MCG 14 PUFFS/INHALER INH SCH (08:27)
[2021-07-07] MEDS: PANTOprazole 40 MG TAB PO SCH (08:27)
[2021-07-07] MEDS: INSULIN ASPART 100 UNITS/ML 3 ML PEN SC SCH ×4 (08:28→21:45)
[2021-07-07] MEDS: HEPARIN SOD 5,000 UNIT/0.5 ML VIAL SQ SCH ×2 (08:28→21:43)
[2021-07-07] MEDS: IRON POLYSACCHARIDE COMPLEX 150 MG CAPSULE PO SCH (08:29)
--- NOTE | 2021-07-07 09:49 | Nuclear Medicine Report ---
NM pul perfusion HISTORY: 85 years-old Female Concern for PE . Acute shortness of breath with history of pulmonary hy pertension COMPARISON: Chest CT 07/06/2021, chest radiograph 07/05/2021 TECHNIQUE: Nuclear medicine perfusion scan was obtained following the intravenous administration of 5 .6 mCi technetium 99 MAA. The ventilation portion of the study was not conducted secondary to ongoing droplet precautions. FINDINGS: Chest CT performed on 07/06/2021 demonstrates cardiomegaly with findings suggestive of pulmonary arter y hypertension. Mild bibasilar atelectasis without large pleural effusion or lobar airspace consolida tion. No large segmental perfusion defects identified. IMPRESSION: Low probability for pulmonary embolus. ACT 112: Negative or not required by law. The above report was generated using voice recognition software. It may contain grammatical, syntax o r spelling errors. Electronically signed by: Julio Serrano M.D. 07/07/2021 9:47 AM
--- NOTE | 2021-07-07 10:13 | Ultrasound Report ---
BILATERAL LOWER EXTREMITY VENOUS DOPPLER HISTORY: Acute pain and swelling of the lower legs edema, eval for DVT COMPARISON STUDY: None. FINDINGS: There is normal compressibility, flow, and augmentation within the bilateral lower extremit y deep venous systems. Mild subcutaneous edema. IMPRESSION: No DVT within the right or left lower extremity. ACT 112: Negative or not required by law. Electronically signed by: Julio Serrano M.D. 07/07/2021 10:12 AM
[2021-07-07] MEDS: METOPROLOL TARTRATE 25 MG TAB PO SCH ×2 (10:37→21:41)
[2021-07-07] MEDS: ALBUTEROL HFA 8 GM INHALER INH PRN (11:14)
--- NOTE | 2021-07-07 12:28 | Hospitalist Progress Note ---
Date of Service July 07, 2021 Assessment & Plan (1) Vertigo: Plan: Her history suggests the development of a URI last Wednesday, followed by the onset of acute vertigo on Wednesday. Episodes are <30 seconds, provoked by head movements, etc. This is likely vestibular neuritis from a viral infection. Can't rule out ROCKET MOTOR TESTER causes of vertigo but less likely. Start meclizine 12.5mg TID. No symptoms to suggest Meniere's (denied tinnitus, denied hearing loss). Consider MRI brain to r/o subacute stroke as cause. Did well with PT despite the vertigo. re-eval tomorrow. (2) URI (upper respiratory infection): (3) Wheezing: Plan: URI with reactive bronchitis/wheezing. Start prednisone 40mg daily. Start bronchodilators scheduled. Add mucinex 1200mg BID. Chest CT with interstitial infiltrates in upper lungs - this could be viral in etiology with pulm edema less likely. re-eval tomorrow. (4) Pulmonary hypertension: Plan: severe on echo. V/Q scan low prob for PE. Dopplers neg for DVT. long-standing untreated JOSEFINA?? O2 requirement likely combination of severe pulm HTN and her bronchitis. (5) Right heart enlargement: Plan: suspect 2nd to long-standing JOSEFINA and pulm HTN. fortunately RV systolic function remains intact despite the enlargement. needs suspected JOSEFINA treated. (6) (HFpEF) heart failure with preserved ejection fraction: Plan: At this time I do not believe she has decompensated CHF. Agree w/ prior attending's assessment. Hold lasix today. re-eval tomorrow. (7) Hypertension: Plan: Cont metoprolol Cont LUZ (8) CKD (chronic kidney disease), stage III: Plan: stage 3b Creatinine at baseline today (9) Type 2 diabetes mellitus: Plan: HbA1c 7.2% this admission. Cont to hold metformin and glipizide. Cont novolog may need basal insulin due to steroids (10) Asthma: Plan: see URI/wheezing above (11) Mood disorder: Plan: Continue Seroquel 50 mg p.o. at bedtime (12) Obstructive sleep apnea: Plan: h/o UPPP surgery years ago does not use CPAP or NC O2 at the [place] ideally needs sleep study given her right heart findings and pulm HTN on echo (13) Peripheral neuropathy: (14) Hyperlipidemia: Plan: Continue atorvastatin (15) Morbid obesity: Plan: BMI about 40 (16) DVT prophylaxis: Plan: Heparin 7,500 units SQ BID Plan: treat vertigo treat wheezing cleared for return by PT/OT to the [facility] updated by phone this evening (Dee, shalini) Admission and Anticipated Discharge Date Admission Date: July 05, 2021 Subjective tele overnight wnl pt continues to have "dizziness" description highly suggestive of vertigo spells she states "the stadium ([place] moves around" when she looks out the window episodes last <30 seconds brought on by movement she remembers the first episode this past Wednesday when she get out of bed [facility] no lightheadedness she states that she has significant nasal congestion, cough, and "Feels full" throughout her head she states further "everyone at the [place] right now has allergies" (ie - nasal congestion, etc) Review of Systems Review of Systems: gen - no fevers/chills; eating decently CV - no chest pain pulm - no dyspnea, but coughing with wheezes GI - no abd pain, nausea, emesis neuro - long-standing snoring, had UPPP surgery years ago for this; is not on CPAP or NC O2 at home Physical Exam Physical Exam: gen - obese, NAD, coughing, pleasant mouth - MMM eyes - no nystagmus neck - JVD 2/3 way up neck heart - RRR, s1 s2, 3/6 holosystolic murmur LLSB lungs - wheezes b/l, course BS b/l, no rales abd - soft, NT, ND, BS+ ext - <1+ edema b/l, pulses 2+ b/l psych - a/o x 3 Results & Data Results & Data ([facility]) Vital Signs (Past 12 Hours) Vital Signs Temp Pulse Pulse Pulse Resp BP Pulse Ox 07/07/21 11:15 54 L 16 93 07/07/21 09:57 49 L 07/07/21 07:53 36.5 C 48 L 22 156/75 H 92 07/07/21 07:00 07/07/21 03:29 37.1 C 50 L 20 156/68 H 91 Pulse Ox 07/07/21 11:15 07/07/21 09:57 07/07/21 07:53 10/04/21 07:00 93 07/07/21 03:29 Laboratory Results Laboratory Results - last 24 hr 07/06/21 07/06/21 07/07/21 16:12 20:10 06:36 WBC 9.93 RBC 3.56 L Hgb 8.7 L Hct 30.1 L MCV 84.6 MCH 24.4 L MCHC 28.9 L RDW Std Deviation 53.0 H RDW Coeff of Shama 17.1 H Plt Count 345 MPV 8.9 Immature Gran % (Auto) 0.2 Neut % (Auto) 66.6 Lymph % (Auto) 15.0 [place] % (Auto) 8.7 Eos % (Auto) 9.2 Baso % (Auto) 0.3 Neut # (Auto) 6.62 H Lymph # (Auto) 1.49 [place] # (Auto) 0.86 H Eos # (Auto) 0.91 H Baso # (Auto) 0.03 Immature Gran # (Auto) 0.02 Platelet Estimate CAC RBC Morphology Unremarkable Sodium Potassium Chloride Carbon Dioxide Anion Gap BUN Creatinine Est Cr Clr Drug Dosing Est GFR ( Amer) Est GFR (Non-Af Amer) BUN/Creatinine Ratio Glucose POC Glucose 159 H 133 H Calcium Magnesium 07/07/21 07/07/21 07/07/21 06:36 07:23 11:18 WBC RBC Hgb Hct MCV MCH MCHC RDW Std Deviation RDW Coeff of Shama Plt Count MPV Immature Gran % (Auto) Neut % (Auto) Lymph % (Auto) [place] % (Auto) Eos % (Auto) Baso % (Auto) Neut # (Auto) Lymph # (Auto) [place] # (Auto) Eos # (Auto) Baso # (Auto) Immature Gran # (Auto) Platelet Estimate RBC Morphology Sodium 140 Potassium 4.9 Chloride 103 Carbon Dioxide 30 Anion Gap 6.0 BUN 27 H Creatinine 1.46 H Est Cr Clr Drug Dosing 33.6 Est GFR ( Amer) 37.9 Est GFR (Non-Af Amer) 32.7 BUN/Creatinine Ratio 18.4 Glucose 130 H POC Glucose 123 H 234 H Calcium 9.0 Magnesium 1.9 PG Care Time/CCT Total # of Minutes Spent Total Time Spent with Patient: Total time spent is greater than 50% in coordination of care (as documented) at patient's floor/unit and/or counseling patient: Coding Level of Care Code 63707 Subseq Hosp Care Lvl 3 Diagnoses Hypertension I10 CKD (chronic kidney disease), stage III N18.30 Type 2 diabetes mellitus E11.9 Asthma J45.909 Mood disorder F39 Obstructive sleep apnea G47.33 Peripheral neuropathy G62.9 Hyperlipidemia E78.5 DVT prophylaxis Z29.9 Vertigo R42 URI (upper respiratory infection) J06.9 Wheezing R06.2 Pulmonary hypertension I27.20 Right heart enlargement I51.7 (HFpEF) heart failure with preserved ejection fraction I50.30 Morbid obesity E66.01
[2021-07-07] MEDS: ALBUTEROL HFA 8 GM INHALER INH SCH ×2 (13:42→19:16)
[2021-07-07] MEDS: predniSONE 20 MG TAB PO SCH (14:26)
[2021-07-07] MEDS: MECLIZINE 12.5 MG TAB PO SCH ×2 (14:26→21:42)
[2021-07-07] MEDS: guaiFENesin 600 MG TABCR PO SCH ×2 (14:26→21:42)
--- NOTE | 2021-07-07 14:32 | Electrocardiogram Report ---
Test Reason : Blood Pressure : / mmHG Vent. Rate : 050 BPM Atrial Rate : 050 BPM P-R Int : 168 ms QRS Dur : 108 ms QT Int : 462 ms P-R-T Axes : -16 -51 000 degrees QTc Int : 421 ms Sinus bradycardia Left anterior fascicular block Abnormal ECG When compared with ECG of 06-JUL-2021 07:09, No significant change was found Confirmed by John Mcclellan ([id number]) on 07/07/2021 2:32:16 PM Referred By: REFERRED SELF Confirmed By:Jesse Mcclellan
[2021-07-07] MEDS: ACETAMINOPHEN 325 MG TAB PO PRN (21:39)
[2021-07-07] MEDS: ATORVASTATIN 10 MG TAB PO SCH (21:41)
[2021-07-07] MEDS: MONTELUKAST SODIUM 10 MG TABLET PO SCH (21:41)
[2021-07-07] MEDS: QUEtiapine FUMARATE 25 MG TABLET PO SCH (21:42)
[2021-07-08] MEDS: ALBUTEROL HFA 8 GM INHALER INH SCH ×4 (00:20→19:49)
[2021-07-08 07:39] LABS: BUN Creatinine Ratio 21.2 (10-20); Calcium 8.9 mg/dl (8.5-10.1); Creatinine Clr Calc Pharmacy 31.4 ml/min; Est GFR (African American) 35.3 ml/min; Est GFR (Non-African American) 30.4 ml/min; Potassium 4.8 mmol/L (3.5-5.1)
[2021-07-08 07:44] LABS: Ferritin 15.7 ng/ml (8-388)
[2021-07-08] MEDS ORDERED: FUROSEMIDE 20 MG in SYRINGE 0 ML IV ONE (08:24)
[2021-07-08] MEDS: ASPIRIN 81 MG ECTAB PO SCH (08:28)
[2021-07-08] MEDS: CHOLECALCIFEROL 1,000 UNITS 25 MCG TAB PO SCH (08:29)
[2021-07-08] MEDS: CALCIUM CARBONATE 1250MG TAB PO SCH (08:29)
[2021-07-08] MEDS: guaiFENesin 600 MG TABCR PO SCH ×2 (08:30→21:08)
[2021-07-08] MEDS: predniSONE 20 MG TAB PO SCH (08:32)
[2021-07-08] MEDS: METOPROLOL TARTRATE 25 MG TAB PO SCH ×3 (08:33→21:12)
[2021-07-08] MEDS: lisinopril 20 MG TAB PO SCH ×2 (08:33→21:09)
[2021-07-08] MEDS: PANTOprazole 40 MG TAB PO SCH (08:33)
[2021-07-08] MEDS: MECLIZINE 12.5 MG TAB PO SCH ×3 (08:34→21:11)
[2021-07-08] MEDS: FLUTICASONE/VILANTEROL 100/25MCG 14 PUFFS/INHALER INH SCH (08:38)
[2021-07-08] MEDS: INSULIN ASPART 100 UNITS/ML 3 ML PEN SC SCH ×3 (08:38→17:04)
[2021-07-08] MEDS: HEPARIN SOD 5,000 UNIT/0.5 ML VIAL SQ SCH ×2 (08:39→21:08)
[2021-07-08] MEDS ORDERED: IRON SUCROSE 200 MG in 0.9 % SODIUM CHLORIDE 100 ML IV ONE (08:45)
[2021-07-08] MEDS ORDERED: INSULIN GLARGINE SOLOSTAR 100 UNITS/ML 3 ML PEN SC SCH (09:00)
[2021-07-08] MEDS ORDERED: amLODIPine BESYLATE 5 MG TAB PO ONE (16:40)
[2021-07-08] MEDS: ATORVASTATIN 10 MG TAB PO SCH (21:09)
[2021-07-08] MEDS: MONTELUKAST SODIUM 10 MG TABLET PO SCH (21:10)
[2021-07-08] MEDS: QUEtiapine FUMARATE 25 MG TABLET PO SCH (21:10)
[2021-07-08] MEDS: ACETAMINOPHEN 325 MG TAB PO PRN (21:37)
--- NOTE | 2021-07-08 22:28 | Hospitalist Progress Note ---
Date of Service July 08, 2021 Assessment & Plan (1) Vertigo: Plan: Modestly improved today. Her history suggests the development of a URI last Wednesday, followed by the onset of acute vertigo on Wednesday. Episodes are <30 seconds, provoked by head movements, etc. This is likely vestibular neuritis from a viral infection. Can't rule out RECREATIONAL COUNSELOR causes of vertigo but less likely. Can likely defer head imaging for now but low threshold for MRI with persistent symptoms or other neuro signs. Cont meclizine 12.5mg TID. No symptoms to suggest Meniere's (denied tinnitus, denied hearing loss). (2) URI (upper respiratory infection): Plan: could consider RSV testing as this is circulating in the community but ultimately will not size changer (3) Wheezing: Plan: URI with reactive bronchitis/wheezing. Improved today. Day #2 of steroids. Wean prednisone to 30mg daily. Cont bronchodilators scheduled. Cont mucinex 1200mg BID. Chest CT with interstitial infiltrates in upper lungs - this could be viral in etiology with pulm edema less likely. additional dose of IV lasix given today. (4) Pulmonary hypertension: Plan: severe on echo. V/Q scan low prob for PE. Dopplers neg for DVT. long-standing untreated JOSEFINA?? O2 requirement likely combination of severe pulm HTN and her bronchitis. (5) Right heart enlargement: Plan: suspect 2nd to long-standing JOSEFINA and pulm HTN. fortunately RV systolic function remains intact despite the enlargement. needs suspected JOSEFINA treated. had UPPP procedure in past but this is often ineffective at resolving JOSEFINA. could have central sleep apnea, too, from heart issues. (6) (HFpEF) heart failure with preserved ejection fraction: Plan: It has been questionable during the stay if she has decompensated CHF. I, too, am uncertain. I believe most of what is occurring is due to viral etiology. Will give a dose of lasix today to see if this leads to any clinical improvement. (7) Hypertension: Plan: Cont metoprolol Cont LUZ (8) CKD (chronic kidney disease), stage III: Plan: stage 3b Creatinine at baseline today (9) Type 2 diabetes mellitus: Plan: HbA1c 7.2% this admission. Cont to hold metformin and glipizide. Cont novolog add basal insulin due to steroids (lantus 8 units daily to start) (10) Asthma: Plan: WITH EXACERBATION. IMPROVED. suspect 2nd to viral etiology. wean steroids. cont albuterol q6h. (11) Mood disorder: Plan: Continue Seroquel 50 mg p.o. at bedtime (12) Obstructive sleep apnea: Plan: h/o UPPP surgery years ago does not use CPAP or NC O2 at the [place] ideally needs sleep study given her right heart findings and pulm HTN on echo (13) Peripheral neuropathy: (14) Hyperlipidemia: Plan: Continue atorvastatin (15) Morbid obesity: Plan: BMI about 40 (16) Iron deficiency anemia: Plan: ferritin and transferrin sat c/w such venofer 200mg IV x 1 then consider repeat dose tomorrow (300mg) fecal occult should be checked (17) DVT prophylaxis: Plan: Heparin 7,500 units SQ BID Plan: cleared for return by PT/OT to the [place] but not medically ready family updated by phone yesterday evening (Dee, niece) Admission and Anticipated Discharge Date Admission Date: July 05, 2021 Subjective tele overnight wnl vertigo is improved today less spinning when getting out of bed no visual field cuts or ataxia during the visit she had the oxygen off was subconsciously breathing heavily/pursed lips o2 sats checked in room air - 87% NC O2 placed back -- the above breathing issue resolved states cough/wheezing is improved appetite improved she stated "I'm getting there" Review of Systems Review of Systems: gen - no fever pulm - coughing, no sputum HEENT - nasal congestion; no hearing loss or tinnitus GI - no abd pain or nausea CV - no chest pain neuro - slept VERY POORLY overnight Physical Exam Physical Exam: gen - obese, briefly was breathing heavily then this resolved mouth - MMM eyes - nystagmus, fast component (horizontal) with gaze to right; visual dominique full by direct confrontation neck - JVD 1/2 way up neck heart - RRR, s1 s2, 3/6 holosystolic murmur LLSB lungs - wheezes improved today, better airation abd - soft, NT, ND, BS+ ext - trace edema b/l, pulses 2+ b/l psych - a/o x 3, looks tired neuro - no ataxia w/ finger/nose/finger maneuver Results & Data Results & Data ([facility]) Vital Signs (Past 12 Hours) Vital Signs Temp Pulse Pulse Resp BP Pulse Ox 07/08/21 19:51 52 L 16 94 07/08/21 19:01 36.5 C 59 L 19 197/75 H 91 07/08/21 16:10 36.6 C 54 L 20 172/70 H 92 07/08/21 15:08 47 L 07/08/21 12:59 49 L 18 93 07/08/21 11:26 36.5 C 50 L 13 160/78 H 95 Laboratory Results Laboratory Results - last 24 hr 07/08/21 07/08/21 07/08/21 06:42 07:01 11:25 Sodium 138 Potassium 4.8 Chloride 104 Carbon Dioxide 28 Anion Gap 6.0 BUN 33 H Creatinine 1.55 H Est Cr Clr Drug Dosing 31.4 Est GFR ( Amer) 35.3 Est GFR (Non-Af Amer) 30.4 BUN/Creatinine Ratio 21.2 H Glucose 174 H POC Glucose 182 H 237 H Calcium 8.9 Iron 18 L Transferrin 213 Transferrin % Sat 6 L Ferritin 15.7 07/08/21 07/08/21 16:22 21:02 Sodium Potassium Chloride Carbon Dioxide Anion Gap BUN Creatinine Est Cr Clr Drug Dosing Est GFR ( Amer) Est GFR (Non-Af Amer) BUN/Creatinine Ratio Glucose POC Glucose 250 H 238 H Calcium Iron Transferrin Transferrin % Sat Ferritin PG Care Time/CCT Total # of Minutes Spent Total Time Spent with Patient: Total time spent is greater than 50% in coordination of care (as documented) at patient's floor/unit and/or counseling patient: Coding Level of Care Code 91202 Subseq Hosp Care Lvl 3 Diagnoses Vertigo R42 URI (upper respiratory infection) J06.9 Wheezing R06.2 Pulmonary hypertension I27.20 Right heart enlargement I51.7 (HFpEF) heart failure with preserved ejection fraction I50.30 Hypertension I10 CKD (chronic kidney disease), stage III N18.30 Type 2 diabetes mellitus E11.9 Asthma J45.909 Mood disorder F39 Obstructive sleep apnea G47.33 Peripheral neuropathy G62.9 Hyperlipidemia E78.5 Morbid obesity E66.01 DVT prophylaxis Z29.9 Iron deficiency anemia D50.9
[2021-07-09] MEDS: INSULIN ASPART 100 UNITS/ML 3 ML PEN SC SCH ×5 (00:07→21:00)
[2021-07-09] MEDS: ALBUTEROL HFA 8 GM INHALER INH SCH ×4 (00:16→20:04)
[2021-07-09 07:22] LABS: Hematocrit (blood only) 31.2 % (37-47); Hemoglobin 9.1 g/dL (12.0-16.0)
[2021-07-09 07:51] LABS: BUN Creatinine Ratio 22.5 (10-20); Calcium 9.3 mg/dl (8.5-10.1); Creatinine Clr Calc Pharmacy 24.9 ml/min; Est GFR (African American) 26.7 ml/min; Est GFR (Non-African American) 23.1 ml/min; Potassium 4.7 mmol/L (3.5-5.1)
[2021-07-09] MEDS: ASPIRIN 81 MG ECTAB PO SCH (08:05)
[2021-07-09] MEDS: CALCIUM CARBONATE 1250MG TAB PO SCH (08:06)
[2021-07-09] MEDS: CHOLECALCIFEROL 1,000 UNITS 25 MCG TAB PO SCH (08:06)
[2021-07-09] MEDS: FLUTICASONE/VILANTEROL 100/25MCG 14 PUFFS/INHALER INH SCH (08:07)
[2021-07-09] MEDS: guaiFENesin 600 MG TABCR PO SCH ×2 (08:08→20:35)
[2021-07-09] MEDS: lisinopril 20 MG TAB PO SCH (08:09)
[2021-07-09] MEDS: MECLIZINE 12.5 MG TAB PO SCH ×3 (08:10→20:36)
[2021-07-09] MEDS: PANTOprazole 40 MG TAB PO SCH (08:10)
[2021-07-09] MEDS: METOPROLOL TARTRATE 25 MG TAB PO SCH ×2 (08:11→20:39)
[2021-07-09] MEDS: predniSONE 10 MG TABLET PO SCH (08:11)
[2021-07-09] MEDS: HEPARIN SOD 5,000 UNIT/0.5 ML VIAL SQ SCH ×2 (08:12→20:38)
[2021-07-09] MEDS: INSULIN GLARGINE SOLOSTAR 100 UNITS/ML 3 ML PEN SC SCH (08:17)
[2021-07-09] MEDS ORDERED: amLODIPine BESYLATE 5 MG TAB PO SCH (09:00)
[2021-07-09] MEDS ORDERED: IRON SUCROSE 300 MG in SODIUM CHLORIDE 0.9% 250 ML IV ONE (09:00)
[2021-07-09 15:35] LABS: Appearance Urine Cloudy (Clear); Bacteria Urine Automated 1+ (Negative); Bilirubin Urine Negative (Negative); Blood Urine Negative (Negative); Color Urine Orange; Epithelial Cell Urine Auto >30 /lpf (0-5); Glucose Urine UA Negative (Negative); Ketones Urine Negative (Negative); Leukocyte Esterase Urine 3+ (Negative); Nitrite Urine Negative (Negative); Protein Urine Trace (Negative); RBC Urine Automated 0-4 /hpf (0-4); Specific Gravity Urine 1.019 (1.000-1.030); Urobilinogen Urine Negative (Negative); WBC Urine Automated >30 /hpf (0-5)
[2021-07-09] MEDS: POLYETHYLENE (MIRALAX) 17 GM PACK PO SCH (16:06)
[2021-07-09] MEDS: SENNA 8.6 MG TAB PO SCH (16:07)
[2021-07-09] MEDS ORDERED: ACETAMINOPHEN 500 MG TAB PO ONE (17:32)
[2021-07-09] MEDS ORDERED: LORazepam 0.5 MG TAB PO STA (19:40)
[2021-07-09] MEDS: MELATONIN 3 MG TAB PO SCH (20:36)
[2021-07-09] MEDS: ACETAMINOPHEN 325 MG TAB PO PRN (20:37)
[2021-07-09] MEDS: ATORVASTATIN 10 MG TAB PO SCH (20:38)
[2021-07-09] MEDS: QUEtiapine FUMARATE 25 MG TABLET PO SCH (20:38)
[2021-07-09] MEDS: MONTELUKAST SODIUM 10 MG TABLET PO SCH (20:38)
[2021-07-09] MEDS: amLODIPine BESYLATE 5 MG TAB PO SCH (20:44)
--- NOTE | 2021-07-09 21:32 | Hospitalist Progress Note ---
Date of Service July 09, 2021 Assessment & Plan (1) Vertigo: Plan: Slowly improving; episodes not as frequent. I am concerned that she is having breakthrough symptoms despite scheduled meclizine TID. Will order MRI - r/o JUKEBOX ROUTE DRIVER cause of vertigo; but my suspicion is that it is peripheral in origin (right ear). Her history suggests the development of a URI last Wednesday, followed by the onset of acute vertigo on Wednesday. Episodes are <30 seconds, provoked by head movements, etc. This is likely vestibular neuritis from a viral infection. Cont meclizine 12.5mg TID. No symptoms to suggest Meniere's (denied tinnitus, denied hearing loss). (2) URI (upper respiratory infection): Plan: check RSV swab to be complete (3) Wheezing: Plan: URI with reactive bronchitis/wheezing. Improved again today. Day #3 of steroids. Wean prednisone to 20mg daily on day #5. Cont bronchodilators scheduled. Cont mucinex 1200mg BID. Chest CT with interstitial infiltrates in upper lungs - this could be viral in etiology with pulm edema less likely. additional dose of IV lasix given yesterday but Cr promptly sophie thus pulm edema unlikely. (4) Pulmonary hypertension: Plan: severe on echo. V/Q scan low prob for PE. Dopplers neg for DVT. 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 records from about reference severe JOSEFINA on sleep study -- "profound episodes of hypoxia" were noted during the [facility]. had UPPP surgery but this surgery often fails to fix JOSEFINA. staff here state she snores very badly. suspect her JOSEFINA has persisted leading to pulm HTN/ right heart enlargement. thus - O2 requirement likely combination of severe pulm HTN (and her bronchitis). consider [facility] referral as she is at risk of cor pulmonale (5) Right heart enlargement: Plan: suspect 2nd to long-standing JOSEFINA and pulm HTN. fortunately RV systolic function remains intact despite the enlargement. needs suspected JOSEFINA treated but uncertain she would comply with CPAP. had UPPP procedure in past but this is often ineffective at resolving JOSEFINA. could have central sleep apnea, too, from heart issues. (6) (HFpEF) heart failure with preserved ejection fraction: Plan: It has been questionable during the stay if she has decompensated CHF. I believe most of what is occurring is due to viral etiology. Gave additional dose of lasix without any clinical change and creatinine promptly sophie to 1.9 with such. (7) Hypertension: Plan: Cont metoprolol Holding LUZ norvasc added and titrated this admission (8) CKD (chronic kidney disease), stage III: Plan: stage 3b Creatinine sophie overnight - likely due to diuresis repeat bmp am (9) Type 2 diabetes mellitus: Plan: HbA1c 7.2% this admission. Cont to hold metformin and glipizide. Cont novolog Cont lantus (10) Asthma: Plan: WITH EXACERBATION. IMPROVED. suspect 2nd to viral etiology. wean steroids. cont albuterol q6h. (11) Mood disorder: Plan: Continue Seroquel 50 mg p.o. at bedtime (12) Obstructive sleep apnea: Plan: h/o UPPP surgery years ago does not use CPAP or NC O2 at the [place] ideally needs sleep study given her right heart findings and pulm HTN on echo but uncertain she would comply with CPAP cont NC O2 see discussion above (13) Peripheral neuropathy: (14) Hyperlipidemia: Plan: Continue atorvastatin (15) Morbid obesity: Plan: BMI about 40 (16) Iron deficiency anemia: Plan: ferritin and transferrin sat c/w such venofer 200mg IV x 1 yesterday, followed by 300mg today fecal occult should be checked (17) DVT prophylaxis: Plan: Heparin 7,500 units SQ BID Plan: cleared for return by PT/OT to the [place] but not medically ready (vertigo, etc) Dee, niece, updated once again by phone today Admission and Anticipated Discharge Date Admission Date: July 05, 2021 Subjective tele stable overnight had vertigo again today - with movement; episode was short denies any new neuro symptoms eating ok cough/congestion slowly improving no dyspnea sleeping poorly - has not slept in 2 nights also with mild headache today - typically doesn't get headaches staff report urine is foul-smelling -- u/a sent Review of Systems Review of Systems: gen - no fevers/chills CV - no orthopnea or cp abd - no pain, N/V Pulm - no dyspnea; still requiring NC O2 Physical Exam Physical Exam: gen - obese, looks tired, but a/o x 3 mouth - MMM eyes - minimal nystagmus, fast component (horizontal) with gaze to right neck - JVD 1/2 way up neck heart - RRR, s1 s2, 3/6 holosystolic murmur LLSB lungs - wheezes again improved today, better airation; no rales abd - soft, NT, ND, BS+ ext - no edema b/l, pulses 2+ b/l psych - a/o x 3 Results & Data Results & Data ([facility]) Vital Signs (Past 12 Hours) Vital Signs Temp Pulse Pulse Resp BP BP Pulse Ox 07/09/21 20:15 36.6 C 54 L 22 180/78 H 95 07/09/21 20:05 60 18 96 07/09/21 15:41 54 L 07/09/21 15:05 36.7 C 52 L 18 166/69 H 93 07/09/21 13:11 56 L 18 98 07/09/21 11:20 36.3 C L 48 L 18 178/80 H 93 Laboratory Results Laboratory Results - last 24 hr 07/09/21 07/09/21 07/09/21 07:04 07:04 07:28 Hgb 9.1 L Hct 31.2 L Sodium 139 Potassium 4.7 Chloride 104 Carbon Dioxide 30 Anion Gap 5.0 BUN 44 H Creatinine 1.95 H D Est Cr Clr Drug Dosing 24.9 Est GFR ( Amer) 26.7 Est GFR (Non-Af Amer) 23.1 BUN/Creatinine Ratio 22.5 H Glucose 145 H POC Glucose 133 H Calcium 9.3 Urine Color Urine Appearance Urine pH Ur Specific [place] Urine Protein Urine Glucose (UA) Urine Ketones Urine Blood Urine Nitrite Urine Bilirubin Urine Urobilinogen Ur Leukocyte Esterase Urine WBC (Auto) Urine RBC (Auto) U Hyaline Cast (Auto) U Epithel Cells (Auto) Urine Bacteria (Auto) Urine Yeast RSV (Molecular) 07/09/21 07/09/21 07/09/21 10:57 12:41 16:01 Hgb Hct Sodium Potassium Chloride Carbon Dioxide Anion Gap BUN Creatinine Est Cr Clr Drug Dosing Est GFR ( Amer) Est GFR (Non-Af Amer) BUN/Creatinine Ratio Glucose POC Glucose 232 H 245 H Calcium Urine Color [place] Urine Appearance Cloudy A Urine pH 5.0 Ur Specific [place] 1.019 Urine Protein Trace H Urine Glucose (UA) Negative Urine Ketones Negative Urine Blood Negative Urine Nitrite Negative Urine Bilirubin Negative Urine Urobilinogen Negative Ur Leukocyte Esterase 3+ H Urine WBC (Auto) >30 H Urine RBC (Auto) 0-4 U Hyaline Cast (Auto) 1-5 U Epithel Cells (Auto) >30 H Urine Bacteria (Auto) 1+ H Urine Yeast Budding w/ Hyphae A RSV (Molecular) 07/09/21 07/09/21 18:23 20:14 Hgb Hct Sodium Potassium Chloride Carbon Dioxide Anion Gap BUN Creatinine Est Cr Clr Drug Dosing Est GFR ( Amer) Est GFR (Non-Af Amer) BUN/Creatinine Ratio Glucose POC Glucose 259 H Calcium Urine Color Urine Appearance Urine pH Ur Specific [place] Urine Protein Urine Glucose (UA) Urine Ketones Urine Blood Urine Nitrite Urine Bilirubin Urine Urobilinogen Ur Leukocyte Esterase Urine WBC (Auto) Urine RBC (Auto) U Hyaline Cast (Auto) U Epithel Cells (Auto) Urine Bacteria (Auto) Urine Yeast RSV (Molecular) Negative PG Care Time/CCT Total # of Minutes Spent Total Time Spent with Patient: Total time spent is greater than 50% in coordination of care (as documented) at patient's floor/unit and/or counseling patient: Coding Level of Care Code 88294 Subseq Hosp Care Lvl 3 Diagnoses Vertigo R42 URI (upper respiratory infection) J06.9 Wheezing R06.2 Pulmonary hypertension I27.20 Right heart enlargement I51.7 (HFpEF) heart failure with preserved ejection fraction I50.30 Hypertension I10 CKD (chronic kidney disease), stage III N18.30 Type 2 diabetes mellitus E11.9 Asthma J45.909 Mood disorder F39 Obstructive sleep apnea G47.33 Peripheral neuropathy G62.9 Hyperlipidemia E78.5 Morbid obesity E66.01 Iron deficiency anemia D50.9 DVT prophylaxis Z29.9
[2021-07-10] MEDS: ALBUTEROL HFA 8 GM INHALER INH SCH ×5 (00:32→23:45)
[2021-07-10 08:04] LABS: BUN Creatinine Ratio 28.5 (10-20); Calcium 9.3 mg/dl (8.5-10.1); Creatinine Clr Calc Pharmacy 30.4 ml/min; Est GFR (African American) 33.9 ml/min; Est GFR (Non-African American) 29.3 ml/min
[2021-07-10] MEDS: SENNA 8.6 MG TAB PO SCH (08:13)
[2021-07-10] MEDS: MECLIZINE 12.5 MG TAB PO SCH ×3 (08:13→20:00)
[2021-07-10] MEDS: amLODIPine BESYLATE 5 MG TAB PO SCH ×2 (08:13→20:00)
[2021-07-10] MEDS: CALCIUM CARBONATE 1250MG TAB PO SCH (08:14)
[2021-07-10] MEDS: ASPIRIN 81 MG ECTAB PO SCH (08:14)
[2021-07-10] MEDS: predniSONE 10 MG TABLET PO SCH (08:14)
[2021-07-10] MEDS: guaiFENesin 600 MG TABCR PO SCH ×2 (08:14→20:00)
[2021-07-10] MEDS: PANTOprazole 40 MG TAB PO SCH (08:14)
[2021-07-10] MEDS: CHOLECALCIFEROL 1,000 UNITS 25 MCG TAB PO SCH (08:14)
[2021-07-10] MEDS: HEPARIN SOD 5,000 UNIT/0.5 ML VIAL SQ SCH ×2 (08:15→20:50)
[2021-07-10] MEDS: INSULIN GLARGINE SOLOSTAR 100 UNITS/ML 3 ML PEN SC SCH (08:15)
[2021-07-10] MEDS: FLUTICASONE/VILANTEROL 100/25MCG 14 PUFFS/INHALER INH SCH (08:15)
[2021-07-10] MEDS: POLYETHYLENE (MIRALAX) 17 GM PACK PO SCH (08:17)
[2021-07-10] MEDS: INSULIN ASPART 100 UNITS/ML 3 ML PEN SC SCH ×4 (08:17→20:20)
[2021-07-10] MEDS: METOPROLOL TARTRATE 25 MG TAB PO SCH ×2 (08:22→20:00)
--- NOTE | 2021-07-10 08:49 | Magnetic Resonance Report ---
MRI OF THE BRAIN WITHOUT CONTRAST CLINICAL HISTORY: persistent vertigo; eval post circulation CVA COMPARISON STUDY: MRI of the brain July 17, 2015. Head CT December 10, 2015. TECHNIQUE: Utilizing a 1.5 Donna magnet and dedicated coil, multiplanar, multiecho imaging of the bra in was performed without IV contrast. FINDINGS: There are no foci of restricted diffusion to suggest acute infarct. No acute intracranial h emorrhage, midline shift or mass effect is present. Ventricular system is stable. Basal cisterns are patent. There are no extra axial collections. Flow-voids for the major intracranial vessels are prese nt. No intracranial masses identified on this unenhanced examination. Extensive white matter T2 hyper intense foci favor small vessel disease. There is an old lacunar infarct within the right frontal lob e that measures 5 mm. A 5 mm lacunar infarct within left oswaldo is noted. A few hyperintense foci on th e gradient echo sequence suggests trace old blood products. Mucous retention cysts within the sphenoi d sinuses are noted. Orbits are unremarkable. There may be postoperative findings within the sinuses. IMPRESSION: 1. No acute intracranial findings. 2. White matter T2 hyperintense foci which favor extensive small vessel disease. 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 3. Several hypointense foci on the gradient echo sequence which suggest trace old blood products. No acute intracranial hemorrhage. ACT 112: Negative or not required by law. Electronically signed by: Elier Arias M.D. 07/10/2021 8:48 AM
[2021-07-10 14:58] LABS: Base Excess VBG 3.5 mEq/L; Oxygen Saturation VBG 88.2 %; pH VBG 7.35 (7.36-7.41)
--- NOTE | 2021-07-10 19:42 | Hospitalist Progress Note ---
Date of Service July 10, 2021 Assessment & Plan (1) Vertigo: Plan: MRI brain negative ruling out FLOUR BLENDER causes of vertigo (acute CVA in particular). Her history is c/w development of a URI last Wednesday, followed by the onset of acute vertigo on Wednesday. Episodes are <30 seconds, provoked by head movements, etc. This is likely vestibular neuritis from a viral infection. Cont meclizine 12.5mg TID. No symptoms to suggest Meniere's (denied tinnitus, denied hearing loss). (2) URI (upper respiratory infection): Plan: RSV negative (3) Wheezing: Plan: URI with reactive bronchitis/wheezing - improved. Day #4 of steroids. Wean prednisone to 20mg daily tomorrow. Cont bronchodilators scheduled. Cont mucinex 1200mg BID. (4) Pulmonary hypertension: Plan: severe on echo. V/Q scan low prob for PE. Dopplers neg for DVT. 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 records from about reference severe JOSEFINA on sleep study -- "profound episodes of hypoxia" were noted during the [facility]. had UPPP surgery but this surgery often fails to fix JOSEFINA. staff here state she snores very badly. suspect her JOSEFINA has persisted leading to pulm HTN/ right heart enlargement. thus - O2 requirement likely combination of severe pulm HTN (and her bronchitis). [facility] [place] as she is at risk of cor pulmonale BIPAP HS for JOSEFINA (5) Right heart enlargement: Plan: suspect 2nd to long-standing JOSEFINA and pulm HTN. fortunately RV systolic function remains intact despite the enlargement. needs suspected JOSEFINA treated but uncertain she would comply with CPAP. had UPPP procedure in past but this is often ineffective at resolving JOSEFINA. could have central sleep apnea, too, from heart issues. trial of BIPAP 12/5 tonight (6) (HFpEF) heart failure with preserved ejection fraction: Plan: It has been questionable during the stay if she has decompensated CHF. I believe most of what is occurring is due to viral etiology. Gave additional dose of lasix without any clinical change and creatinine promptly sophie to 1.9 with such. Cr back down to 1.6 today. (7) Hypertension: Plan: Cont metoprolol Holding LUZ due to mild rise in Cr norvas added and titrated this admission (8) CKD (chronic kidney disease), stage III: Plan: stage 3b had mild bump Cr with diuresis LUZ held further diuresis held repeat bmp am (9) Type 2 diabetes mellitus: Plan: HbA1c 7.2% this admission. Cont to hold metformin and glipizide. Cont novolog Cont lantus (10) Asthma: Plan: WITH EXACERBATION. IMPROVED. suspect 2nd to viral etiology. wean steroids. cont albuterol q6h. (11) Mood disorder: Plan: given patient's extreme fatigue will HOLD seroquel she has had no delirium or paranoia/psychotic symptoms (12) Obstructive sleep apnea: Plan: h/o UPPP surgery years ago does not use CPAP or NC O2 at the [place] ideally needs sleep study given her right heart findings and pulm HTN on echo but uncertain she would comply with CPAP cont NC O2 see discussion above (13) Peripheral neuropathy: (14) Hyperlipidemia: Plan: Continue atorvastatin (15) Morbid obesity: Plan: BMI about 40 (16) Iron deficiency anemia: Plan: ferritin and transferrin sat c/w such venofer 200mg IV x 1, followed by 300mg fecal occult should be checked (17) DVT prophylaxis: Plan: Heparin 7,500 units SQ BID (18) Fatigue: Plan: trial BIPAP at HS hold seroquel continue NC O2 [id number] check TSH and free T4 Plan: shalini Price, updated once again by phone yesterday I am concerned by pt's weakness/fatigue - will she be fit to return to the [place]? expressed my concerns to case management about dispo Admission and Anticipated Discharge Date Admission Date: July 05, 2021 Subjective patient c/o significant fatigue today she slept better last night but remains very tired we discussed use of BIPAP at HS -- doesn't think she can do it used BIPAP for 6 months after her JOSEFINA dx 20 years ago but stopped - couldn't get used to it cough/congestion improving still w/ very mild vertigo - episodes lasting seconds only eating fair tele overnight wnl Review of Systems Review of Systems: gen - severe fatigue; no fever/chills CV - no chest pain or orthopnea pulm - mild cough, mild ROSARIO GI - no pain neuro - still w/ vertigo Physical Exam Physical Exam: gen - obese, looks tired, but a/o x 3 mouth - MMM eyes - minimal nystagmus (couple beats) w/ rightward gaze neck - JVD present heart - RRR, s1 s2, 3/6 holosystolic murmur LLSB lungs - minimal rales b/l, no wheeze abd - soft, NT, ND, BS+ ext - no edema b/l, pulses 2+ b/l psych - a/o x 3 Results & Data Results & Data ([facility]) Vital Signs (Past 12 Hours) Vital Signs Temp Pulse Pulse Resp BP Pulse Ox 07/10/21 19:29 85 18 95 07/10/21 19:11 36.7 C 58 L 18 177/74 H 96 07/10/21 15:00 36.8 C 88 20 141/62 H 98 07/10/21 13:04 84 18 98 07/10/21 12:00 37.0 C 79 18 135/68 100 07/10/21 10:56 63 07/10/21 08:53 36.8 C 75 20 147/83 H 96 Laboratory Results Laboratory Results - last 24 hr 07/09/21 07/10/21 07/10/21 20:14 07:19 07:36 VBG pH VBG pCO2 VBG pO2 VBG HCO3 VBG O2 Saturation VBG Base Excess Barometric Pressure Sodium 139 Potassium 5.0 Chloride 108 H Carbon Dioxide 29 Anion Gap 2.0 L BUN 46 H Creatinine 1.60 H D Est Cr Clr Drug Dosing 30.4 Est GFR ( Amer) 33.9 Est GFR (Non-Af Amer) 29.3 BUN/Creatinine Ratio 28.5 H Glucose 149 H POC Glucose 259 H 144 H Calcium 9.3 Ammonia 07/10/21 07/10/21 07/10/21 11:33 14:41 14:41 VBG pH 7.35 L VBG pCO2 55 H VBG pO2 58 VBG HCO3 30 VBG O2 Saturation 88.2 VBG Base Excess 3.5 Barometric Pressure 738.3 Sodium Potassium Chloride Carbon Dioxide Anion Gap BUN Creatinine Est Cr Clr Drug Dosing Est GFR ( Amer) Est GFR (Non-Af Amer) BUN/Creatinine Ratio Glucose POC Glucose 200 H Calcium Ammonia 26.0 07/10/21 16:19 VBG pH VBG pCO2 VBG pO2 VBG HCO3 VBG O2 Saturation VBG Base Excess Barometric Pressure Sodium Potassium Chloride Carbon Dioxide Anion Gap BUN Creatinine Est Cr Clr Drug Dosing Est GFR ( Amer) Est GFR (Non-Af Amer) BUN/Creatinine Ratio Glucose POC Glucose 221 H Calcium Ammonia PG Care Time/CCT Total # of Minutes Spent Total Time Spent with Patient: Total time spent is greater than 50% in coordination of care (as documented) at patient's floor/unit and/or counseling patient: Coding Level of Care Code 40400 Subseq Hosp Care Lvl 3 Diagnoses Vertigo R42 URI (upper respiratory infection) J06.9 Wheezing R06.2 Pulmonary hypertension I27.20 Right heart enlargement I51.7 (HFpEF) heart failure with preserved ejection fraction I50.30 Hypertension I10 CKD (chronic kidney disease), stage III N18.30 Type 2 diabetes mellitus E11.9 Asthma J45.909 Mood disorder F39 Obstructive sleep apnea G47.33 Peripheral neuropathy G62.9 Hyperlipidemia E78.5 Morbid obesity E66.01 Iron deficiency anemia D50.9 DVT prophylaxis Z29.9 Fatigue R53.83
[2021-07-10] MEDS: MELATONIN 3 MG TAB PO SCH (20:00)
[2021-07-10] MEDS: ATORVASTATIN 10 MG TAB PO SCH (20:00)
[2021-07-10] MEDS: MONTELUKAST SODIUM 10 MG TABLET PO SCH (20:00)
[2021-07-10] MEDS: ACETAMINOPHEN 325 MG TAB PO PRN (20:04)
[2021-07-11] MEDS: ACETAMINOPHEN 325 MG TAB PO PRN ×2 (03:26→20:56)
[2021-07-11 06:55] LABS: BUN Creatinine Ratio 26.4 (10-20); Calcium 9.4 mg/dl (8.5-10.1); Creatinine Clr Calc Pharmacy 30.5 ml/min; Est GFR (African American) 34.2 ml/min; Est GFR (Non-African American) 29.5 ml/min; Potassium 5.3 mmol/L (3.5-5.1)
[2021-07-11 07:06] LABS: Thyroid Stimulating Hormone 0.781 uIu/ml (0.300-4.500)
[2021-07-11] MEDS: ALBUTEROL HFA 8 GM INHALER INH SCH ×2 (07:17→19:23)
[2021-07-11] MEDS ORDERED: SODIUM POLYSTYRENE SULFONATE 15G/60ML SUSP PO STA (08:18)
[2021-07-11] MEDS: SENNA 8.6 MG TAB PO SCH (08:21)
[2021-07-11] MEDS: ASPIRIN 81 MG ECTAB PO SCH (08:21)
[2021-07-11] MEDS: amLODIPine BESYLATE 5 MG TAB PO SCH ×2 (08:21→20:56)
[2021-07-11] MEDS: PANTOprazole 40 MG TAB PO SCH (08:21)
[2021-07-11] MEDS: guaiFENesin 600 MG TABCR PO SCH ×2 (08:22→20:56)
[2021-07-11] MEDS: CALCIUM CARBONATE 1250MG TAB PO SCH (08:22)
[2021-07-11] MEDS: METOPROLOL TARTRATE 25 MG TAB PO SCH ×2 (08:22→20:55)
[2021-07-11] MEDS: CHOLECALCIFEROL 1,000 UNITS 25 MCG TAB PO SCH (08:23)
[2021-07-11] MEDS: FLUTICASONE/VILANTEROL 100/25MCG 14 PUFFS/INHALER INH SCH (08:23)
[2021-07-11] MEDS: MECLIZINE 12.5 MG TAB PO SCH ×2 (08:23→15:21)
[2021-07-11] MEDS: HEPARIN SOD 5,000 UNIT/0.5 ML VIAL SQ SCH ×2 (08:36→21:39)
[2021-07-11] MEDS: INSULIN ASPART 100 UNITS/ML 3 ML PEN SC SCH ×4 (08:38→20:56)
[2021-07-11] MEDS: INSULIN GLARGINE SOLOSTAR 100 UNITS/ML 3 ML PEN SC SCH (08:39)
[2021-07-11] MEDS: predniSONE 20 MG TAB PO SCH (08:40)
[2021-07-11] MEDS: POLYETHYLENE (MIRALAX) 17 GM PACK PO SCH (08:40)
--- NOTE | 2021-07-11 19:27 | Hospitalist Progress Note ---
Date of Service July 11, 2021 Assessment & Plan (1) Vertigo: Plan: MRI brain negative ruling out FINAL ASSEMBLY WORKER causes of vertigo (acute CVA in particular). Her history is c/w development of a URI last Wednesday, followed by the onset of acute vertigo on Wednesday. Episodes are <30 seconds, provoked by head movements, etc. This is likely vestibular neuritis from a viral infection. Appreciate Pt eval = vestibular eval c/w L inner ear issues; kennedy done. Cont meclizine -- increase to 25mg BID. No symptoms to suggest Meniere's (denied tinnitus, denied hearing loss). If vertigo persists after d/c --- ENT referral. (2) URI (upper respiratory infection): Plan: RSV negative improving (3) Wheezing: Plan: URI with reactive bronchitis/wheezing - improved. Day #5 of steroids. Wean prednisone to 20mg x 2 days, then 10mg x 1 day, then off. Cont bronchodilators scheduled. Cont mucinex 1200mg BID. (4) Pulmonary hypertension: Plan: severe on echo. V/Q scan low prob for PE. Dopplers neg for DVT. 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 records from about reference severe JOSEFINA on sleep study -- "profound episodes of hypoxia" were noted during the [facility]. had UPPP surgery but this surgery often fails to fix JOSEFINA. staff here state she snores very badly. suspect her JOSEFINA has persisted leading to pulm HTN/ right heart enlargement. thus - O2 requirement likely combination of severe pulm HTN (and her bronchitis). [facility] [place] program referral as she is at risk of cor pulmonale BIPAP HS for JOSEFINA but unfortunately she is refusing refer to sleep medicine post-d/c; perhaps there are new masks pt could try out (5) Right heart enlargement: Plan: suspect 2nd to long-standing JOSEFINA and pulm HTN. fortunately RV systolic function remains intact despite the enlargement. needs suspected JOSEFINA treated but uncertain she would comply with CPAP. had UPPP procedure in past but this is often ineffective at resolving JOSEFINA. could have central sleep apnea, too, from heart issues. refusing BIPAP (6) (HFpEF) heart failure with preserved ejection fraction: Plan: It has been questionable during the stay if she has decompensated CHF. I believe most of what is occurring is due to viral etiology. Gave additional dose of lasix without any clinical change and creatinine promptly sophie to 1.9 with such. no further lasix while here (7) Hypertension: Plan: Cont metoprolol norvasc added and titrated this admission likely resume LUZ tomorrow (8) CKD (chronic kidney disease), stage III: Plan: stage 3b had mild bump Cr with diuresis LUZ held further diuresis held Cr improving repeat bmp am (9) Type 2 diabetes mellitus: Plan: HbA1c 7.2% this admission. Cont to hold metformin and glipizide. Cont novolog Cont lantus (10) Asthma: Plan: WITH EXACERBATION. IMPROVED. suspect 2nd to viral etiology. wean steroids. cont albuterol q6h. (11) Mood disorder: Plan: given patient's extreme fatigue will HOLD seroquel she has had no delirium or paranoia/psychotic symptoms (12) Obstructive sleep apnea: Plan: h/o UPPP surgery years ago does not use CPAP or NC O2 at the [place] ideally needs sleep study given her right heart findings and pulm HTN on echo but uncertain she would comply with CPAP cont NC O2 see discussion above (13) Peripheral neuropathy: (14) Hyperlipidemia: Plan: Continue atorvastatin (15) Morbid obesity: Plan: BMI about 40 (16) Iron deficiency anemia: Plan: ferritin and transferrin sat c/w such venofer 200mg IV x 1, followed by 300mg fecal occult should be checked (17) DVT prophylaxis: Plan: Heparin 7,500 units SQ BID (18) Fatigue: Plan: trial BIPAP at HS - refused hold seroquel continue NC O2 [id number] check TSH - nl (19) Hyperkalemia: Plan: 2nd MARIELY kayexalate 15gm x 1 bmp am Plan: shalini Price, updated once again by phone today hopeful for d/c back to [place] tomorrow needs 2-step Admission and Anticipated Discharge Date Admission Date: July 05, 2021 Subjective tele overnight wnl NSR or SB refused BIPAP last HS she said "I just can't do it" had a little vertigo today but tolerable worked with PT yesterday - vestibular eval done, L ear is culprit, kennedy done breathing improved congestion improved ate much better today Review of Systems Review of Systems: gen - eating improved; fatigue remains but a little better today CV - no cp pulm - cough improved GI - no N/V/D/abd pain Physical Exam Physical Exam: gen - obese, doesn't look as tired today, but a/o x 3 mouth - MMM eyes - minimal nystagmus horizontal neck - JVD present - no change heart - RRR, s1 s2, 3/6 holosystolic murmur LLSB lungs - CTA b/l abd - soft, NT, ND, BS+ ext - no edema b/l, pulses 2+ b/l psych - a/o x 3 Results & Data Results & Data ([facility]) Vital Signs (Past 12 Hours) Vital Signs Temp Pulse Pulse Resp BP Pulse Ox 07/11/21 16:00 54 L 07/11/21 15:25 36.5 C 67 18 142/76 H 95 07/11/21 08:00 36.6 C 47 L 64 18 178/71 H 93 Laboratory Results Laboratory Results - last 24 hr 07/10/21 07/11/21 07/11/21 20:18 05:51 07:47 Sodium 137 Potassium 5.3 H Chloride 105 Carbon Dioxide 32 Anion Gap 0 L BUN 42 H Creatinine 1.59 H Est Cr Clr Drug Dosing 30.5 Est GFR ( Amer) 34.2 Est GFR (Non-Af Amer) 29.5 BUN/Creatinine Ratio 26.4 H Glucose 128 H POC Glucose 267 H 114 H Calcium 9.4 TSH 0.781 07/11/21 07/11/21 11:23 16:57 Sodium Potassium Chloride Carbon Dioxide Anion Gap BUN Creatinine Est Cr Clr Drug Dosing Est GFR ( Amer) Est GFR (Non-Af Amer) BUN/Creatinine Ratio Glucose POC Glucose 206 H 219 H Calcium TSH PG Care Time/CCT Total # of Minutes Spent Total Time Spent with Patient: Total time spent is greater than 50% in coordination of care (as documented) at patient's floor/unit and/or counseling patient: Coding Level of Care Code 79307 Subseq Hosp Care Lvl 3 Diagnoses Vertigo R42 URI (upper respiratory infection) J06.9 Wheezing R06.2 Pulmonary hypertension I27.20 Right heart enlargement I51.7 (HFpEF) heart failure with preserved ejection fraction I50.30 Hypertension I10 CKD (chronic kidney disease), stage III N18.30 Type 2 diabetes mellitus E11.9 Asthma J45.909 Mood disorder F39 Obstructive sleep apnea G47.33 Peripheral neuropathy G62.9 Hyperlipidemia E78.5 Morbid obesity E66.01 Iron deficiency anemia D50.9 DVT prophylaxis Z29.9 Fatigue R53.83 Hyperkalemia E87.5
[2021-07-11] MEDS: MELATONIN 3 MG TAB PO SCH (20:55)
[2021-07-11] MEDS: MONTELUKAST SODIUM 10 MG TABLET PO SCH (20:56)
[2021-07-11] MEDS: ATORVASTATIN 10 MG TAB PO SCH (20:56)
[2021-07-11] MEDS ORDERED: MECLIZINE HCL 25 MG TAB PO SCH ×2 (21:00)
[2021-07-12] MEDS: ALBUTEROL HFA 8 GM INHALER INH SCH ×2 (07:13→19:21)
[2021-07-12] MEDS: guaiFENesin 600 MG TABCR PO SCH ×2 (07:30→20:55)
[2021-07-12] MEDS: CALCIUM CARBONATE 1250MG TAB PO SCH (07:31)
[2021-07-12] MEDS: amLODIPine BESYLATE 5 MG TAB PO SCH ×2 (07:31→20:54)
[2021-07-12] MEDS: METOPROLOL TARTRATE 25 MG TAB PO SCH ×2 (07:31→20:54)
[2021-07-12] MEDS: PANTOprazole 40 MG TAB PO SCH (07:31)
[2021-07-12] MEDS: FLUTICASONE/VILANTEROL 100/25MCG 14 PUFFS/INHALER INH SCH (07:33)
[2021-07-12] MEDS: CHOLECALCIFEROL 1,000 UNITS 25 MCG TAB PO SCH (07:35)
[2021-07-12] MEDS: ASPIRIN 81 MG ECTAB PO SCH (07:36)
[2021-07-12] MEDS: predniSONE 20 MG TAB PO SCH (07:36)
[2021-07-12] MEDS: HEPARIN SOD 5,000 UNIT/0.5 ML VIAL SQ SCH ×2 (07:38→20:55)
[2021-07-12] MEDS: INSULIN GLARGINE SOLOSTAR 100 UNITS/ML 3 ML PEN SC SCH (07:39)
[2021-07-12] MEDS: POLYETHYLENE (MIRALAX) 17 GM PACK PO SCH (07:40)
[2021-07-12] MEDS: SENNA 8.6 MG TAB PO SCH (07:40)
[2021-07-12 07:42] LABS: Calcium 9.4 mg/dl (8.5-10.1); Creatinine Clr Calc Pharmacy 35.3 ml/min; Est GFR (African American) 41.3 ml/min; Est GFR (Non-African American) 35.6 ml/min; Potassium 4.8 mmol/L (3.5-5.1)
[2021-07-12] MEDS: INSULIN ASPART 100 UNITS/ML 3 ML PEN SC SCH ×4 (08:31→21:00)
[2021-07-12] MEDS ORDERED: lisinopril 20 MG TAB PO ONE (10:00)
[2021-07-12] MEDS ORDERED: SCOPOLAMINE 1 MG TDSY TD SCH (12:00)
[2021-07-12] MEDS ORDERED: MECLIZINE 12.5 MG TAB PO PRN (15:24)
[2021-07-12] MEDS: CHECK SCOPOLAMINE PATCH PLACEMENT SCH ×2 (17:15→23:39)
[2021-07-12] MEDS: MONTELUKAST SODIUM 10 MG TABLET PO SCH (20:54)
[2021-07-12] MEDS: ATORVASTATIN 10 MG TAB PO SCH (20:55)
[2021-07-12] MEDS: MELATONIN 3 MG TAB PO SCH (20:55)
[2021-07-12] MEDS: ACETAMINOPHEN 325 MG TAB PO PRN (20:58)
[2021-07-12] MEDS: lisinopril 20 MG TAB PO SCH (21:02)
--- NOTE | 2021-07-12 22:37 | Hospitalist Progress Note ---
Date of Service July 12, 2021 Assessment & Plan (1) Vertigo: Plan: MRI brain negative ruling out WIRER MAINTENANCE causes of vertigo (acute CVA in particular). Her history is c/w development of a URI about 10 days ago, followed by acute vertigo a few days later. Episodes are <30 seconds, provoked by head movements, etc. This is likely vestibular neuritis from a viral infection. Appreciate Pt eval = vestibular eval c/w L inner ear issues; kennedy done. The frequency and severity of her vertigo episodes are improved. [id number] she keeps c/o symptoms despite several days of scheduled meclizine. plan - try scopalamine patch change meclizine to 12.5mg q6h prn re-eval tomorrow No symptoms to suggest Meniere's (denied tinnitus, denied hearing loss). If vertigo persists after d/c --- ENT referral. (2) URI (upper respiratory infection): Plan: RSV negative COVID negative improving/resolving (3) Wheezing: Plan: URI with reactive bronchitis/wheezing - improved. Day #6 of steroids. Wean prednisone tomorrow to 10mg x 2 days, then off. Cont bronchodilators scheduled. Cont mucinex 1200mg BID. (4) Pulmonary hypertension: Plan: severe on echo. V/Q scan low prob for PE. Dopplers neg for DVT. 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 records from about reference severe JOSEFINA on sleep study -- "profound episodes of hypoxia" were noted during the [facility]. had UPPP surgery but this surgery often fails to fix JOSEFINA. staff here state she snores very badly. suspect her JOSEFINA has persisted leading to pulm HTN/ right heart enlargement. thus - O2 requirement likely combination of severe pulm HTN (and her bronchitis). [facility] [place] as she is at risk of cor pulmonale BIPAP HS for JOSEFINA but unfortunately she continues to refuse it refer to sleep medicine post-d/c; perhaps there are new masks pt could try out (5) Right heart enlargement: Plan: suspect 2nd to long-standing JOSEFINA and pulm HTN. fortunately RV systolic function remains intact despite the enlargement. needs suspected JOSEFINA treated but uncertain she would comply with CPAP. had UPPP procedure in past but this is often ineffective at resolving JOSEFINA. could have central sleep apnea, too, from heart issues. refusing BIPAP (6) (HFpEF) heart failure with preserved ejection fraction: Plan: It has been questionable during the stay if she has decompensated CHF. I believe most of what is occurring is due to viral etiology. Gave additional dose of lasix without any clinical change and creatinine promptly sophie to 1.9 with such. no further lasix while here (7) Hypertension: Plan: Cont metoprolol norvasc added and titrated this admission resume LUZ today (lisinopril 20 BID) (8) CKD (chronic kidney disease), stage III: Plan: stage 3b had mild bump Cr with diuresis LUZ held further diuresis held Cr improving can resume LUZ repeat bmp am (9) Type 2 diabetes mellitus: Plan: HbA1c 7.2% this admission. Cont to hold metformin and glipizide. Cont novolog Cont lantus resume oral meds at d/c (10) Asthma: Plan: WITH EXACERBATION. IMPROVED/resolving suspect 2nd to viral etiology. wean steroids. cont albuterol q6h. (11) Mood disorder: Plan: given patient's extreme fatigue will HOLD seroquel I have noticed a difference in the level of alertness with holding this med she has had no delirium or paranoia/psychotic symptoms to warrant ongoing use of the seroquel d/c it at discharge from hospital (12) Obstructive sleep apnea: Plan: h/o UPPP surgery years ago does not use CPAP or NC O2 at the [place] ideally needs sleep study given her right heart findings and pulm HTN on echo but uncertain she would comply with CPAP cont NC O2 see discussion above (13) Peripheral neuropathy: (14) Hyperlipidemia: Plan: Continue atorvastatin (15) Morbid obesity: Plan: BMI about 40 (16) Iron deficiency anemia: Plan: ferritin and transferrin sat c/w such venofer 200mg IV x 1, followed by 300mg fecal occult negative repeat cbc am (17) DVT prophylaxis: Plan: Heparin 7,500 units SQ BID (18) Fatigue: Plan: trial BIPAP at HS - refused hold seroquel continue NC O2 [id number] check TSH - nl this seems better overall (19) Hyperkalemia: Plan: 2nd MARIELY kayexalate 15gm x 1 resolved Plan: shalini Price, updated multiple times this week hopeful for d/c back to [place] tomorrow needs formal 2-step Admission and Anticipated Discharge Date Admission Date: July 05, 2021 Subjective overall feeling better she has been able to transfer fairly easily per staff stated she had nausea this am but again ate all of breakfast and lunch no emesis had 1-2 brief episodes of vertigo, each lasting <20 seconds despite scheduled meclizine at bedtime last night cough, congestion, URI symptoms all improved Review of Systems Review of Systems: gen - chronic fatigue, sleepiness - but actually did sleep better than usual last night CV - no chest pain pulm - dry cough, occasional; no dyspnea GI - no N/V/D Physical Exam Physical Exam: gen - obese, looks good today mouth - MMM neck - JVD present - no change heart - RRR, s1 s2, 3/6 holosystolic murmur LLSB lungs - CTA b/l abd - soft, NT, ND, BS+ ext - no edema b/l, pulses 2+ b/l psych - a/o x 3 Results & Data Results & Data ([facility]) Vital Signs (Past 12 Hours) Vital Signs Temp Pulse Pulse Resp BP BP Pulse Ox 07/12/21 19:58 36.8 C 63 16 147/78 H 91 07/12/21 19:22 63 18 92 07/12/21 16:08 55 L 07/12/21 15:57 36.3 C L 59 L 22 157/73 H 94 07/12/21 11:39 36.8 C 50 L 22 162/81 H 93 Laboratory Results Laboratory Results - last 24 hr 07/12/21 07/12/21 07/12/21 06:52 07:18 08:40 Sodium 139 Potassium 4.8 Chloride 104 Carbon Dioxide 31 Anion Gap 4.0 BUN 35 H Creatinine 1.36 H Est Cr Clr Drug Dosing 35.3 Est GFR ( Amer) 41.3 Est GFR (Non-Af Amer) 35.6 BUN/Creatinine Ratio 26.0 H Glucose 138 H POC Glucose 132 H Calcium 9.4 Stool Occult Bld Scrn Negative 07/12/21 07/12/21 07/12/21 11:13 16:23 20:58 Sodium Potassium Chloride Carbon Dioxide Anion Gap BUN Creatinine Est Cr Clr Drug Dosing Est GFR ( Amer) Est GFR (Non-Af Amer) BUN/Creatinine Ratio Glucose POC Glucose 184 H 124 H 192 H Calcium Stool Occult Bld Scrn PG Care Time/CCT Total # of Minutes Spent Total Time Spent with Patient: Total time spent is greater than 50% in coordination of care (as documented) at patient's floor/unit and/or counseling patient: Coding Level of Care Code 08388 Subseq Hosp Care Lvl 2 Diagnoses Vertigo R42 URI (upper respiratory infection) J06.9 Wheezing R06.2 Pulmonary hypertension I27.20 Right heart enlargement I51.7 (HFpEF) heart failure with preserved ejection fraction I50.30 Hypertension I10 CKD (chronic kidney disease), stage III N18.30 Type 2 diabetes mellitus E11.9 Asthma J45.909 Mood disorder F39 Obstructive sleep apnea G47.33 Peripheral neuropathy G62.9 Hyperlipidemia E78.5 Morbid obesity E66.01 Iron deficiency anemia D50.9 DVT prophylaxis Z29.9 Fatigue R53.83 Hyperkalemia E87.5
[2021-07-13 05:56] LABS: Hematocrit (blood only) 34.1 % (37-47); Hemoglobin 10.1 g/dL (12.0-16.0); Mean Corpuscular Hemoglobin 25.1 pg (25-34); Mean Corpuscular Hgb Conc 29.6 g/dL (32-36); Mean Corpuscular Volume 84.6 fL (80-100); Mean Platelet Volume 9.1 fL (7.4-10.4); Platelet Count 341 K/uL (130-400); RDW Coefficient of Variation 18.1 % (11.5-14.5); RDW Standard Deviation 54.2 fL (36.4-46.3); Red Blood Count 4.03 M/uL (4.2-5.4); White Blood Count 11.99 K/uL (4.8-10.8)
[2021-07-13 06:33] LABS: BUN Creatinine Ratio 28.9 (10-20); Calcium 9.5 mg/dl (8.5-10.1); Est GFR (African American) 39.9 ml/min; Est GFR (Non-African American) 34.4 ml/min; Potassium 5.4 mmol/L (3.5-5.1)
[2021-07-13] MEDS: ALBUTEROL HFA 8 GM INHALER INH SCH ×2 (07:24→19:27)
[2021-07-13] MEDS: HEPARIN SOD 5,000 UNIT/0.5 ML VIAL SQ SCH ×2 (09:09→22:54)
[2021-07-13] MEDS: CHOLECALCIFEROL 1,000 UNITS 25 MCG TAB PO SCH (09:10)
[2021-07-13] MEDS: CHECK SCOPOLAMINE PATCH PLACEMENT SCH (09:10)
[2021-07-13] MEDS: guaiFENesin 600 MG TABCR PO SCH ×2 (09:11→22:45)
[2021-07-13] MEDS: CALCIUM CARBONATE 1250MG TAB PO SCH (09:11)
[2021-07-13] MEDS: ASPIRIN 81 MG ECTAB PO SCH (09:11)
[2021-07-13] MEDS: SENNA 8.6 MG TAB PO SCH (09:11)
[2021-07-13] MEDS: predniSONE 10 MG TABLET PO SCH (09:12)
[2021-07-13] MEDS: FLUTICASONE/VILANTEROL 100/25MCG 14 PUFFS/INHALER INH SCH (09:12)
[2021-07-13] MEDS: amLODIPine BESYLATE 5 MG TAB PO SCH ×2 (09:12→22:45)
[2021-07-13] MEDS: lisinopril 20 MG TAB PO SCH ×2 (09:12→22:45)
[2021-07-13] MEDS: METOPROLOL TARTRATE 25 MG TAB PO SCH ×2 (09:12→22:46)
[2021-07-13] MEDS: PANTOprazole 40 MG TAB PO SCH (09:12)
[2021-07-13] MEDS: POLYETHYLENE (MIRALAX) 17 GM PACK PO SCH (09:13)
[2021-07-13] MEDS: INSULIN GLARGINE SOLOSTAR 100 UNITS/ML 3 ML PEN SC SCH (09:13)
[2021-07-13] MEDS: INSULIN ASPART 100 UNITS/ML 3 ML PEN SC SCH ×4 (09:17→22:10)
[2021-07-13] MEDS ORDERED: PANTOprazole 40 MG in SYRINGE 0 ML IV ONE (13:47)
--- NOTE | 2021-07-13 16:36 | CT Scan Report ---
CT SCAN OF THE NECK WITHOUT IV CONTRAST CLINICAL HISTORY: Sore throat. Dysphagia. COMPARISON STUDY: Cervical spine radiographs dated 05/30/2011. TECHNIQUE: Unenhanced CT scan of the soft tissues of the neck was performed from the skull base to th e upper chest. Images are reviewed in the axial, sagittal, and coronal planes. IV contrast was not a dministered for this examination. Note that the examination was performed in significantly suboptimal fashion without IV contrast. A dose lowering technique was utilized adhering to the principles of A SUKI. CT DOSE: 552.40 mGy.cm FINDINGS: Pharynx: The unenhanced pharyngeal soft tissues are grossly normal in appearance. The pharyngeal airw ay is widely patent. There is no evidence of mass lesion. The vocal cords are symmetric. The paraphar yngeal fat is well maintained. The prevertebral/retropharyngeal soft tissues are within normal limits . The epiglottis is normal. The patient is edentulous. The upper esophagus is patulous and filled wit h fluid above the level of the thoracic inlet. Lymphadenopathy: No cervical lymphadenopathy is seen Thyroid: The thyroid gland is enlarged and heterogeneous. Coarse calcifications are noted in both lob es. Salivary glands: The parotid and submandibular glands are within normal limits. Brain parenchyma: The visualized brain parenchyma at the skull base is normal in appearance noting ag e-related involutional change. Skeletal structures: The skeletal structures are osteopenic. Imaged portions of the calvarium at the skull base are within normal limits. The cervical spine appears intact noting multilevel spondylosis. No lytic or blastic lesion is seen. Orbits: The bony orbits are intact. Orbital contents are normal as visualized noting bilateral ocular lens implants. Sinuses and mastoids: There is moderate mucosal thickening within the sphenoid sinuses. Thickening an d sclerosis of the sinus wall suggests chronicity. The remaining paranasal sinuses are clear. The mas toid air cells are well pneumatized. Lung apices: Visualized apical lung parenchyma is clear. IMPRESSION: 1. No acute abnormality is identified on this unenhanced examination. 2. The upper esophagus is patulous and filled with fluid above the level of the thoracic inlet. Note that this may place the patient risk for aspiration. ACT 112: Negative or not required by law. Electronically signed by: Italo Whelan M.D. 07/13/2021 4:34 PM
--- NOTE | 2021-07-13 20:06 | Gastrointestinal Consultation ---
Date of Consultation July 13, 2021 Assessment & Plan (1) Dysphagia: (2) Food bolus obstruction of intestine: (3) Abnormal CT scan: food bolus mostly cleared, still with some remnants on imaging it appears mostly fluid Recs: --EGD now to further evaluate and treat --NPO --risks/benefits and procedure discussed with patient, who agrees to proceed --supportive care, IVFs Thank you for allowing me to participate in the care of this patient History of Present Illness Attending Physician: Gera Albarran History of Present Illness 85 yo female hospitalized with vertigo, who during admission developed dysphagia today at lunch. GI consulted for this. She had to vomit up her food and did feel better after that episode, has been NPO since then, however on imaging it appears there is still fluid/debris in the esophagus. Currently stable. No known prior EGD nor history of dysphagia before this. labs reviewed. Allergies Allergy/AdvReac Type Severity Reaction Status Date / Time coconut Allergy Intermediate Rash Verified 07/02/21 08:54 peanut Allergy Intermediate Rash Verified 07/02/21 08:54 blueberry Allergy Verified 07/11/21 14:58 raspberry Allergy Verified 07/11/21 14:58 oxycodone [From OxyContin] AdvReac Mild hallucinati Verified 07/09/21 20:35 on Home Medications Medication Instructions Recorded Confirmed Type nystatin 100,000 unit/gram topical 1 appln TOP BID PRN #30 gm 05/23/19 07/02/21 Rx powder (Nystop) aspirin 81 mg tablet,delayed 81 mg PO DAILY #90 tab 06/12/20 07/02/21 Rx release (Aspirin Low Dose) calcium carbonate-vitamin D3 500 1 tab PO DAILY #90 tab 06/12/20 07/02/21 Rx mg (1,250 mg)-600 unit tablet methyl salicylate 15 %-menthol 10 1 applic TOPICAL BID PRN #57 g 09/12/20 07/02/21 Rx % topical cream (Bengay Greaseless) tramadol 50 mg tablet 50 mg PO Q8H PRN #90 tab 10/03/20 07/02/21 Rx amlodipine 5 mg tablet 5 mg PO DAILY #90 tab 02/04/21 07/02/21 Rx metformin 500 mg tablet 500 mg PO BID #180 tab 03/06/21 07/02/21 Rx furosemide 20 mg tablet (Lasix) 20 mg PO .COMPLEX #90 tab 03/20/21 07/02/21 Rx acetaminophen 325 mg tablet 650 mg PO Q4H PRN #120 tab 05/26/21 07/02/21 Rx atorvastatin 10 mg tablet 10 mg PO HS #90 tab 05/26/21 07/02/21 Rx cyanocobalamin (vitamin B-12) 1,000 mcg IM MONTHLY #1 ml 05/26/21 07/02/21 Rx 1,000 mcg/mL injection solution glimepiride 1 mg tablet 1 mg PO QAM #90 tab 05/26/21 07/02/21 Rx lisinopril 20 mg tablet 20 mg PO BID #180 tab 05/26/21 07/02/21 Rx metoprolol tartrate 50 mg tablet 50 mg PO BID #180 tab 05/26/21 07/02/21 Rx montelukast 10 mg tablet 10 mg PO HS #90 tab 05/26/21 07/02/21 Rx pantoprazole 40 mg tablet,delayed 40 mg PO DAILY #90 tab 05/26/21 07/02/21 Rx release quetiapine 50 mg tablet 50 mg PO HS #90 tab 05/26/21 07/02/21 Rx albuterol sulfate 90 mcg/actuation 2 puff INHALATION Q6H PRN #8.5 g 06/27/21 07/02/21 Rx aerosol inhaler fluticasone 100 mcg-salmeterol 50 1 inh INHALATION BID #180 ea 06/27/21 07/02/21 Rx mcg/dose blistr powdr for inhalation (Advair Diskus) cholecalciferol (vitamin D3) 125 125 mcg PO DAILY #90 tab 07/01/21 07/02/21 Rx mcg (5,000 unit) tablet polysaccharide iron complex 150 mg 150 mg PO DAILY #90 cap 07/01/21 07/02/21 Rx iron capsule (Ferrex) Oxygen Home #1 ea 07/13/21 Rx Patient History Medical History Anemia Asthma Benign essential tremor Chronic cerebral ischemia Chronic low back pain Chronic renal insufficiency CKD (chronic kidney disease), stage III Hyperlipidemia Hypertension Mood disorder Obstructive sleep apnea s/p UPPP surgery Osteoarthritis Osteopenia Peripheral neuropathy Prolapse of female pelvic organs Type 2 diabetes mellitus Vitamin B12 deficiency Vitamin D deficiency Surgical History H/O wisdom tooth extraction History of knee replacement R and L History of tonsillectomy and adenoidectomy S/P appendectomy S/P cholecystectomy S/P uvulopalatopharyngoplasty S/P vaginal hysterectomy unsure if ovaries were left Family History Sister Liver cancer Denies family history of Ovarian cancer Breast cancer Colorectal cancer Uterine cancer Social History Smoking Status: Never smoker Second Hand Exposure: No; Hx Alcohol Use: No Hx Substance Use: No Preferred Language: Yi Communication Ability: Effective Hearing Ability: Normal Park Guide Required: No Beliefs That Will Affect Care: None marital status: / Current Living Situation: Alone and Personal Care Facility Current Living Situation Comment: [facility] current occupational status: retired How many Children do You have: 2 Feels Safe at Home: Yes caffeine: No Physical Activity Frequency: Does not Exercise Seatbelt Use: always Assistive Devices: Oxygen - Continuous Review of Systems Constitutional: no fever, no chills and no weight loss Eyes: as per Subjective / HPI Ear, Nose, Mouth, Throat: as per Subjective / HPI Respiratory: no dyspnea and no dyspnea on exertion Cardiovascular: no chest pain and no palpitations Gastrointestinal: as per Subjective / HPI Musculoskeletal: no joint pain and no swelling Integumentary: no rash and no lesions Neurologic: no numbness and no paresthesia Psychiatric: no depression and no anxiety Endocrine: no fatigue Hematologic / Lymphatic: no easy bleeding and no easy bruising Physical Exam Constitutional: WD/WN, vitals as above Eyes: EOM intact bilaterally Neck: normal visual inspection Respiratory: normal respiratory effort, lungs clear to auscultation Cardiovascular: RRR, no murmur, no edema Gastrointestinal (Abdomen): Inspection/Auscultation: abdomen normal to inspection; abdomen not distended Percussion/Palpation: abdomen soft; abdomen nontender and no hepatosplenomegaly Musculoskeletal: Extremities: no cyanosis Gait: normal gait Skin: no rashes, warm and dry Neurologic: moves all extremities Psychiatric: A+Ox3, euthymic affect Results & Data ([place]) Vital Signs (Past 12 Hours) Vital Signs Temp Pulse Pulse Pulse Pulse Pulse Pulse 07/13/21 19:29 80 07/13/21 19:17 36.6 C 62 07/13/21 16:00 56 L 07/13/21 15:44 36.5 C 57 L 07/13/21 11:00 63 61 73 59 L Pulse Resp Resp Resp Resp Resp Resp 07/13/21 19:29 20 07/13/21 19:17 19 07/13/21 16:00 07/13/21 15:44 20 07/13/21 11:00 63 19 18 23 20 19 BP Pulse Ox Pulse Ox Pulse Ox Pulse Ox Pulse Ox Pulse Ox 07/13/21 19:29 96 07/13/21 19:17 183/72 H 96 07/13/21 16:00 07/13/21 15:44 139/79 96 07/13/21 11:00 88 L 95 93 94 86 L PG Care Time/CCT Total # of Minutes Spent Total Time Spent with Patient: Total time spent is greater than 50% in coordination of care (as documented) at patient's floor/unit and/or counseling patient: Coding Level of Care Code 02247 Initial Inpt Care Lvl 3 Diagnoses Dysphagia R13.10 Food bolus obstruction of intestine K56.[address] scan R93.89
--- NOTE | 2021-07-13 20:07 | Anesthesiology Consultation ---
Date of Service July 13, 2021 Assessment & Plan Chart Review Chart Review: Acceptable Risk for Surgery Consults Requested none History Surgery Operation Date: 07/13/21 20:00 Proposed Procedures p EGD Foreign Body Removal - Theodore Orellana MD Height/Weight Height: 5 ft 3.75 in Weight: 104.1 kg Allergies Allergy/AdvReac Type Severity Reaction Status Date / Time coconut Allergy Intermediate Rash Verified 07/02/21 08:54 peanut Allergy Intermediate Rash Verified 07/02/21 08:54 blueberry Allergy Verified 07/11/21 14:58 raspberry Allergy Verified 07/11/21 14:58 oxycodone [From OxyContin] AdvReac Mild hallucinati Verified 07/09/21 20:35 on Medications Home Medications Medication Instructions Recorded Confirmed Last Taken nystatin 100,000 unit/gram topical 1 appln TOP BID PRN #30 gm 05/23/19 07/02/21 Unknown powder (Nystop) aspirin 81 mg tablet,delayed 81 mg PO DAILY #90 tab 06/12/20 07/02/21 Unknown release (Aspirin Low Dose) calcium carbonate-vitamin D3 500 1 tab PO DAILY #90 tab 06/12/20 07/02/21 Un known mg (1,250 mg)-600 unit tablet methyl salicylate 15 %-menthol 10 1 applic TOPICAL BID PRN #57 g 09/12/20 07/02/21 Unknown % topical cream (Bengay Greaseless) tramadol 50 mg tablet 50 mg PO Q8H PRN #90 tab 10/03/20 07/02/21 Unknown amlodipine 5 mg tablet 5 mg PO DAILY #90 tab 02/04/21 07/02/21 Unknown metformin 500 mg tablet 500 mg PO BID #180 tab 03/06/21 07/02/21 Unknown furosemide 20 mg tablet (Lasix) 20 mg PO .COMPLEX #90 tab 03/20/21 07/02/21 Unknown acetaminophen 325 mg tablet 650 mg PO Q4H PRN #120 tab 05/26/21 07/02/21 Unknown atorvastatin 10 mg tablet 10 mg PO HS #90 tab 05/26/21 07/02/21 Unknown cyanocobalamin (vitamin B-12) 1,000 mcg IM MONTHLY #1 ml 05/26/21 07/02/21 Unknown 1,000 mcg/mL injection solution glimepiride 1 mg tablet 1 mg PO QAM #90 tab 05/26/21 07/02/21 Unknown lisinopril 20 mg tablet 20 mg PO BID #180 tab 05/26/21 07/02/21 Unknown metoprolol tartrate 50 mg tablet 50 mg PO BID #180 tab 05/26/21 07/02/21 Unknown montelukast 10 mg tablet 10 mg PO HS #90 tab 05/26/21 07/02/21 Unknown pantoprazole 40 mg tablet,delayed 40 mg PO DAILY #90 tab 05/26/21 07/02/21 Unknown release quetiapine 50 mg tablet 50 mg PO HS #90 tab 05/26/21 07/02/21 Unknown albuterol sulfate 90 mcg/actuation 2 puff INHALATION Q6H PRN #8.5 g 06/27/21 07/02/21 Unknown aerosol inhaler fluticasone 100 mcg-salmeterol 50 1 inh INHALATION BID #180 ea 06/27/21 07/02/21 Unknown mcg/dose blistr powdr for inhalation (Advair Diskus) cholecalciferol (vitamin D3) 125 125 mcg PO DAILY #90 tab 07/01/21 07/02/21 Unknown mcg (5,000 unit) tablet polysaccharide iron complex 150 mg 150 mg PO DAILY #90 cap 07/01/21 07/02/21 Unknown iron capsule (Ferrex) Oxygen Home #1 ea 07/13/21 Unknown Active Medications Generic Name Dose Route Start Last Admin Trade Name Freq PRN Reason Stop Dose Admin Acetaminophen 650 mg 07/05/21 07:55 07/12/21 20:58 Acetaminophen 325 Mg Tab PO 08/04/21 07:54 650 mg Q4H PRN Administration Pain or Fever Albuterol 2 puffs 07/11/21 19:00 07/13/21 19:27 Albuterol Hfa 8 Gm Inhaler INH 08/10/21 18:59 2 puffs BIDR JOVI Administration Amlodipine Besylate 5 mg 07/09/21 21:00 07/13/21 09:12 Amlodipine Besylate 5 Mg Tab PO 08/08/21 20:59 5 mg BID JOVI Administration Aspirin 81 mg 07/05/21 09:00 07/13/21 09:11 Aspirin 81 Mg Ectab PO 08/04/21 08:59 81 mg DAILY JOVI Administration Atorvastatin Calcium 10 mg 07/05/21 21:00 07/12/21 20:55 Atorvastatin 10 Mg Tab PO 08/04/21 20:59 10 mg HS JOVI Administration Calcium Carbonate 1,250 mg 07/05/21 09:00 07/13/21 09:11 Calcium Carbonate 1250mg Tab PO 08/04/21 08:59 1,250 mg DAILY JOVI Administration Fluticasone/Vilanterol 1 puffs 07/05/21 09:00 07/13/21 09:12 Fluticasone/Vilanterol 100/25mcg 14 Puffs/Inhaler INH 08/04/21 08:59 1 puffs DAILY JOVI Administration Guaifenesin 1,200 mg 07/07/21 12:30 07/13/21 09:11 Guaifenesin 600 Mg Tabcr PO 08/06/21 12:29 1,200 mg Q12 JOVI Administration Heparin Sodium (Porcine) 7,500 units 07/06/21 21:00 07/13/21 09:09 Heparin Sod 5,000 Unit/0.5 Ml Vial SQ 08/05/21 20:59 7,500 units Q12H JOVI Administration Insulin Aspart 0 units 07/05/21 07:55 07/13/21 17:55 Insulin Aspart 100 Units/Ml 3 Ml Pen SC 08/04/21 07:54 1 units ACHS JOVI Administration Insulin Glargine 10 units 07/09/21 09:00 07/13/21 09:13 Insulin Glargine Solostar 100 Units/Ml 3 Ml Pen SC 08/08/21 08:59 10 units QAM JOVI Administration Lisinopril 20 mg 07/06/21 21:00 07/13/21 09:12 Lisinopril 20 Mg Tab PO 08/05/21 20:59 20 mg BID JOVI Administration Melatonin 3 mg 07/09/21 21:00 07/12/21 20:55 Melatonin 3 Mg Tab PO 08/08/21 20:59 3 mg HS JOVI Administration Metoprolol Tartrate 25 mg 07/07/21 09:00 07/13/21 09:12 Metoprolol Tartrate 25 Mg Tab PO 08/06/21 08:59 25 mg BID JOVI Administration Miscellaneous 1 ea 07/12/21 12:00 07/12/21 12:10 Remove Transderm-Scop Patch N/A 08/11/21 11:59 Not Given Q72H JOVI Montelukast Sodium 10 mg 07/05/21 21:00 07/12/21 20:54 Montelukast Sodium 10 Mg Tablet PO 08/04/21 20:59 10 mg HS JOVI Administration Pantoprazole Sodium 40 mg 07/05/21 09:00 07/13/21 09:12 Pantoprazole 40 Mg Tab PO 08/04/21 08:59 40 mg DAILY JOVI Administration Polyethylene Glycol 17 gm 07/09/21 15:30 07/13/21 09:13 Polyethylene (Miralax) 17 Gm Pack PO 08/08/21 15:29 Not Given DAILY JOVI Prednisone 10 mg 07/13/21 09:00 07/13/21 09:12 Prednisone 10 Mg Tablet PO 08/12/21 08:59 10 mg DAILY JOVI Administration Sennosides 17.2 mg 07/09/21 15:30 07/13/21 09:11 Senna 8.6 Mg Tab PO 08/08/21 15:29 Not Given QAM JOVI Tramadol HCl 50 mg 07/05/21 07:55 07/06/21 12:06 Tramadol Hcl 50 Mg Tablet PO 08/04/21 07:54 50 mg Q8H PRN Administration Moderate Pain Vitamin D 5,000 units 07/05/21 09:00 07/13/21 09:10 Cholecalciferol 1,000 Units 25 Mcg Tab PO 08/04/21 08:59 5,000 units DAILY JOVI Administration NPO Date Last Intake of Fluids: 07/13/21 Time Last Intake of Fluids: 16:00 Date Last Intake of Solids: 07/13/21 Time Last Intake of Solids: 12:00 Past Medical History Medical History Anemia Asthma Benign essential tremor Chronic cerebral ischemia Chronic low back pain Chronic renal insufficiency CKD (chronic kidney disease), stage III Hyperlipidemia Hypertension Mood disorder Obstructive sleep apnea s/p UPPP surgery Osteoarthritis Osteopenia Peripheral neuropathy Prolapse of female pelvic organs Type 2 diabetes mellitus Vitamin B12 deficiency Vitamin D deficiency Past Family History Family History Sister Liver cancer Denies family history of Ovarian cancer Breast cancer Colorectal cancer Uterine cancer Past Surgical History Surgical History H/O wisdom tooth extraction History of knee replacement R and L History of tonsillectomy and adenoidectomy S/P appendectomy S/P cholecystectomy S/P uvulopalatopharyngoplasty S/P vaginal hysterectomy unsure if ovaries were left Social History Smoking Status: Never smoker Do You Dip or Chew Tobacco: No Hx Alcohol Use: No Hx Substance Use: No Physical Exam Vital Signs Last Vital Signs Temp 36.6 C 07/13/21 19:17 Pulse 80 07/13/21 19:29 Resp 20 07/13/21 19:29 BP 183/72 H 07/13/21 19:17 Pulse Ox 96 07/13/21 19:29 Testing Laboratory Results 07/13/21 05:41 07/13/21 08:34 PT 10.0 Seconds (9.0-12.0) 07/05/21 03:50 INR 1.0 (0.9-1.1) 07/05/21 03:50 Hemoglobin A1c 7.2 % (4.5-5.6) H 07/05/21 08:36 Urine Color [place] 07/09/21 12:41 Urine Appearance Cloudy (Clear) A 07/09/21 12:41 Urine pH 5.0 (4.5-7.5) 07/09/21 12:41 Ur Specific [place] 1.019 (1.000-1.030) 07/09/21 12:41 Urine Protein Trace (Negative) H 07/09/21 12:41 Urine Glucose (UA) Negative (Negative) 07/09/21 12:41 Urine Ketones Negative (Negative) 07/09/21 12:41 Urine Nitrite Negative (Negative) 07/09/21 12:41 Ur Leukocyte Esterase 3+ (Negative) H 07/09/21 12:41 Urine WBC (Auto) >30 /hpf (0-5) H 07/09/21 12:41 Urine RBC (Auto) 0-4 /hpf (0-4) 07/09/21 12:41 U Hyaline Cast (Auto) 1-5 /lpf (0-5) 07/09/21 12:41 U Epithel Cells (Auto) >30 /lpf (0-5) H 07/09/21 12:41 Urine Bacteria (Auto) 1+ (Negative) H 07/09/21 12:41 07/09/21 12:41 Urine Culture - Final Urine,Clean Catch More than three types of organisms present, all moderate counts mixed probable skin omer. No further identifications or sensitivities to follow. 07/05/21 04:15 Urine Culture - Final Urine,Clean Catch More than three types of organisms present, all moderate counts mixed probable skin omer. No further identifications or sensitivities to follow. 07/13/21 07/13/21 07/13/21 15:52 11:47 09:16 POC Glucose 201 H 142 H 281 H
[2021-07-13] MEDS ORDERED: LIDOCAINE 2% 2 ML VIAL/AMP(20MG/ML) INFIL ONE (20:11)
[2021-07-13] MEDS ORDERED: fentaNYL citrate 100 MCG/2 ML VIAL ONE (20:11)
[2021-07-13] MEDS ORDERED: PROPOFOL IV EMULSION 10 MG/ML 20 ML VIAL IV ONE ×2 (20:11→21:20)
[2021-07-13] MEDS ORDERED: ONDANSETRON INJ 2 MG/ML 2 ML VIAL ONE (20:12)
[2021-07-13] MEDS ORDERED: SUCCINYLCHOLINE 100MG/5ML SYR IV ONE ×2 (20:12)
--- NOTE | 2021-07-13 20:23 | Hospitalist Progress Note ---
Date of Service July 13, 2021 Assessment & Plan (1) Food impaction of esophagus: Plan: Following her event this afternoon (see HPI) I spoke with Dr Orellana from [facility]. He advised CT soft tissue neck, NPO, PPI, etc. CT soft tissue neck showed patulous esophagus with liquid in esophagus. Spoke again with Dr Orellana - recommended urgent EGD this evening. EGD showed food impaction in the entire esophagus. Food removed in entirety. Speech consult in am. May need barium swallow. NPO until tomorrow. Cont IV PPI. Scopalamine patch d/c. Drying effect of patch could have made this issue worse. (2) Vertigo: Plan: MRI brain negative ruling out [employer] causes of vertigo such as acute CVA. Her history is c/w development of a URI about 10 days ago, followed by acute vertigo a few days later. Episodes are <30 seconds, provoked by head movements, etc. This is likely vestibular neuritis from a viral infection. Appreciate Pt eval = vestibular eval c/w L inner ear issues; kennedy done. The frequency and severity of her vertigo episodes are much improved. Responded well to scopalamine patch and meclizine prn. d/c scop patch due to #1, however. No symptoms to suggest Meniere's (denied tinnitus, denied hearing loss). If vertigo persists after d/c --- ENT referral. (3) URI (upper respiratory infection): Plan: RSV negative COVID negative resolved (4) Wheezing: Plan: URI with reactive bronchitis/wheezing - improved/resolved. Day #7 of steroids. Stop prednisone after this am's dose. Cont bronchodilators scheduled. Cont mucinex 1200mg BID. (5) Pulmonary hypertension: Plan: severe on echo. V/Q scan low prob for PE. Dopplers neg for DVT. 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 records from about reference severe JOSEFINA on sleep study -- "profound episodes of hypoxia" were noted during the [facility]. had UPPP surgery but this surgery often fails to fix JOSEFINA. staff here state she snores very badly. suspect her JOSEFINA has persisted leading to pulm HTN/ right heart enlargement. thus - O2 requirement likely combination of severe pulm HTN (and her bronchitis). [facility] program referral as she is at risk of cor pulmonale BIPAP HS for JOSEFINA but unfortunately she continues to refuse it refer to sleep medicine post-d/c; perhaps there are new masks pt could try out (6) Right heart enlargement: Plan: suspect 2nd to long-standing JOSEFINA and pulm HTN. fortunately RV systolic function remains intact despite the enlargement. needs suspected JOSEFINA treated but uncertain she would comply with CPAP. had UPPP procedure in past but this is often ineffective at resolving JOSEFINA. could have central sleep apnea, too, from heart issues. refusing BIPAP (7) (HFpEF) heart failure with preserved ejection fraction: Plan: It was questionable during the stay if she had decompensated CHF. I do not believe she had volume overload. Symptoms/signs more c/w viral URI illness. Holding additional lasix. (8) Hypertension: Plan: Cont metoprolol Cont norvasc 5mg BID Cont lisinopril 20 BID (9) CKD (chronic kidney disease), stage III: Plan: stage 3b had mild bump Cr with diuresis LUZ held further diuresis held Cr improving LUZ resumed repeat bmp am (10) Type 2 diabetes mellitus: Plan: HbA1c 7.2% this admission. Cont to hold metformin and glipizide. Cont novolog Cont lantus resume oral meds at d/c (11) Asthma: Plan: WITH EXACERBATION. resolved. suspect 2nd to viral etiology. stop prednisone after today's dose. cont albuterol q6h. (12) Mood disorder: Plan: given patient's extreme fatigue seroquel was held she has been more alert since holding seroquel she has had no delirium or paranoia/psychotic symptoms to warrant ongoing use of the seroquel d/c it at discharge from hospital (13) Obstructive sleep apnea: Plan: h/o UPPP surgery years ago does not use CPAP or NC O2 at the [place] ideally needs sleep study given her right heart findings and pulm HTN on echo but uncertain she would comply with CPAP cont NC O2 see discussion above (14) Peripheral neuropathy: (15) Hyperlipidemia: Plan: Continue atorvastatin (16) Morbid obesity: Plan: BMI about 40 (17) Iron deficiency anemia: Plan: ferritin and transferrin sat c/w such venofer 200mg IV x 1, followed by 300mg x 1 during this admission fecal occult negative CBCs have been stable (18) DVT prophylaxis: Plan: Heparin 7,500 units SQ BID (19) Fatigue: Plan: trial BIPAP at HS - refused seroquel discontinued continue NC O2 [id number] TSH wnl fatigue is improved with the above (20) Hyperkalemia: Plan: 2nd MARIELY kayexalate 15gm x 1 resolved (21) Chronic respiratory failure with hypoxia and hypercapnia: Plan: 2-step O2 test today -- needs 2 liters NC O2 continuously 2nd to pulmonary HTN Plan: Dee, niece, updated multiple times this week including today Dee informed about food impaction and need for urgent EGD total time today over multiple visits, complex care coordination, etc - 65 minutes Admission and Anticipated Discharge Date Admission Date: July 05, 2021 Subjective saw patient multiple times today during AM rounds patient states she had uneventful night vertigo largely resolved staff report she is ambulating, transferring, etc much better than a few days ago had a good breakfast this am moving her bowels, breathing is stable shortly after eating lunch (consisted of turkey, corn, raymond food cake, etc) the patient had severe upper chest pain she began to spit up/regurgitate saliva and food I came to bedside - she c/o upper chest pain she had nausea she began to regurgitate/vomit liquid food she reported her chest pain was better no dyspnea despite the above tele overnight with NSR or SB Review of Systems Review of Systems: gen - no fevers/chills; fatigue improved CV - see HPI; no orthopnea pulm - cough/wheeze/congestion resolved GI - bloating, regurgitation, nausea Physical Exam Physical Exam: (exam during AM rounds) gen - obese, NAD, wearing NC O2; awake/alert mouth - MMM neck - JVD present - no change heart - RRR, s1 s2, 3/6 holosystolic murmur LLSB lungs - CTA b/l abd - soft, NT, ND, BS+ ext - no edema b/l, pulses 2+ b/l psych - a/o x 3 Results & Data Results & [facility] ([facility] Vital Signs (Past 12 Hours) Vital Signs Temp Pulse Pulse Pulse Pulse Pulse Pulse 07/13/21 19:29 80 07/13/21 19:17 36.6 C 62 07/13/21 16:00 56 L 07/13/21 15:44 36.5 C 57 L 07/13/21 11:00 63 61 73 59 L Pulse Resp Resp Resp Resp Resp Resp 07/13/21 19:29 20 07/13/21 19:17 19 07/13/21 16:00 07/13/21 15:44 20 07/13/21 11:00 63 19 18 23 20 19 BP Pulse Ox Pulse Ox Pulse Ox Pulse Ox Pulse Ox Pulse Ox 07/13/21 19:29 96 07/13/21 19:17 183/72 H 96 07/13/21 16:00 07/13/21 15:44 139/79 96 07/13/21 11:00 88 L 95 93 94 86 L Laboratory Results Laboratory Results - last 24 hr 07/12/21 07/13/21 07/13/21 20:58 05:41 05:41 WBC 11.99 H RBC 4.03 L Hgb 10.1 L Hct 34.1 L MCV 84.6 MCH 25.1 MCHC 29.6 L RDW Std Deviation 54.2 H RDW Coeff of Shama 18.1 H Plt Count 341 MPV 9.1 Sodium 137 Potassium 5.4 H Chloride 102 Carbon Dioxide 31 Anion Gap 4.0 BUN 40 H Creatinine 1.40 H Est Cr Clr Drug Dosing 35.0 Est GFR ( Amer) 39.9 Est GFR (Non-Af Amer) 34.4 BUN/Creatinine Ratio 28.9 H Glucose 143 H POC Glucose 192 H Calcium 9.5 Specimen Hemolysis 07/13/21 07/13/21 07/13/21 08:34 09:16 11:47 WBC RBC Hgb Hct MCV MCH MCHC RDW Std Deviation RDW Coeff of Shama Plt Count MPV Sodium Potassium 5.0 Chloride Carbon Dioxide Anion Gap BUN Creatinine Est Cr Clr Drug Dosing Est GFR ( Amer) Est GFR (Non-Af Amer) BUN/Creatinine Ratio Glucose POC Glucose 281 H 142 H Calcium Specimen Hemolysis 07/13/21 15:52 WBC RBC Hgb Hct MCV MCH MCHC RDW Std Deviation RDW Coeff of Shama Plt Count MPV Sodium Potassium Chloride Carbon Dioxide Anion Gap BUN Creatinine Est Cr Clr Drug Dosing Est GFR ( Amer) Est GFR (Non-Af Amer) BUN/Creatinine Ratio Glucose POC Glucose 201 H Calcium Specimen Hemolysis PG Care Time/CCT Total # of Minutes Spent Total Time Spent with Patient: Total time spent is greater than 50% in coordination of care (as documented) at patient's floor/unit and/or counseling patient: Prolonged Care Time Prolonged Care Time: Yes 65 Coding Level of Care Code 61796 Subseq Hosp Care Lvl 3 (25 - SIGNIFICANT, SEPARATELY IDENTIFIABLE ) Diagnoses Vertigo R42 URI (upper respiratory infection) J06.9 Wheezing R06.2 Pulmonary hypertension I27.20 Right heart enlargement I51.7 (HFpEF) heart failure with preserved ejection fraction I50.30 Hypertension I10 CKD (chronic kidney disease), stage III N18.30 Type 2 diabetes mellitus E11.9 Asthma J45.909 Mood disorder F39 Obstructive sleep apnea G47.33 Peripheral neuropathy G62.9 Hyperlipidemia E78.5 Morbid obesity E66.01 Iron deficiency anemia D50.9 DVT prophylaxis Z29.9 Fatigue R53.83 Hyperkalemia E87.5 Food impaction of esophagus T18.128A Chronic respiratory failure with hypoxia and hypercapnia J96.11; J96.12 Additional Codes Prolonged Care Time - Prolonged Care Time: Yes ([id number])
--- NOTE | 2021-07-13 21:24 | Procedure Note ---
Procedure Note Date of Service July 13, 2021 Note GI brief procedure/post op note EGD findings: large amounts of food bolus obstructing the entire esophagus, corn and turkey, removed with cap suction and talons successfully. No evidence of ring nor stricture. Recs: NPO obtain speech and swallow eval tomorrow consider barium swallow study as well supportive care, rest as per primary team Theodore Orellana MD Gastroenterology Coding
--- NOTE | 2021-07-13 21:30 | GI REPORT ---
Patient Name: Deysi Saucedo Procedure Date: 07/13/2021 7:43 PM Date of : 1935 Admit Type: Inpatient Age: 85 Gender: Female Attending MD: Theodore Orellana MD Procedure: Upper GI endoscopy Providers: Theodore Orellana MD Referring MD: Gera Albarran Indications: Dysphagia, Foreign body in the esophagus Medicines: Monitored Anesthesia Care Complications: No immediate complications. Estimated blood loss: None. Estimated Blood Loss: Estimated blood loss: none. Procedure: Pre-Anesthesia Assessment: - Prior Anticoagulants: The patient has taken no previous anticoagulant or antiplatelet agents. - ASA Grade Assessment: III - A patient with severe systemic disease. After obtaining informed consent, the endoscope was passed under direct vision. Throughout the procedure, the patient's blood pressure, pulse, and oxygen saturations were monitored continuously. The Endoscope was introduced through the mouth, and advanced to the second part of duodenum. The upper GI endoscopy was accomplished without difficulty. The patient tolerated the procedure well. Findings: Food was found in the entire esophagus. Removal of food was accomplished using cap suction and talons. Estimated blood loss: none. No evidence of stricture nor rings in the esophagus The entire examined stomach was normal. The duodenal bulb and second portion of the duodenum were normal. Impression: - Food in the esophagus. Removal was successful. - Normal stomach. - Normal duodenal bulb and second portion of the duodenum. Recommendation: - Return patient to [facility] for ongoing care. - NPO today. -speech and swallow evaluation tomorrow morning -consider barium swallow as well tomorrow -may need outpatient esophageal manometry testing --supportive care Theodore Orellana MD 07/13/2021 9:30:01 PM This report has been signed electronically. Note Initiated On: 07/13/2021 7:43 PM Number of Addenda: 0 I attest to the content of the Intraoperative Record and orders documented therein, exceptions below {[id number]}
--- NOTE | 2021-07-13 22:02 | Anesthesiology Progress Note ---
Date of Service July 13, 2021 Anesthesia Post Procedure Vital Signs Vital Signs: Temp Pulse Pulse Pulse Pulse Pulse Pulse 07/13/21 22:00 55 L 07/13/21 21:50 55 L 07/13/21 21:40 61 07/13/21 21:33 36.1 C L 61 07/13/21 19:29 80 07/13/21 19:17 36.6 C 62 07/13/21 16:00 56 L 07/13/21 15:44 36.5 C 57 L 07/13/21 11:00 63 61 73 07/13/21 08:00 48 L 07/13/21 07:26 73 07/13/21 07:05 36.5 C 52 L 07/13/21 04:56 36.6 C 50 L 07/13/21 01:57 59 L 07/12/21 23:23 36.4 C L Pulse Pulse Pulse Resp Resp Resp Resp 07/13/21 22:00 20 07/13/21 21:50 18 07/13/21 21:40 21 07/13/21 21:33 20 07/13/21 19:29 20 07/13/21 19:17 19 07/13/21 16:00 07/13/21 15:44 20 07/13/21 11:00 59 L 63 19 18 23 07/13/21 08:00 07/13/21 07:26 18 07/13/21 07:05 22 07/13/21 04:56 16 07/13/21 01:57 07/12/21 23:23 53 L 16 Resp Resp BP Pulse Ox Pulse Ox Pulse Ox Pulse Ox 07/13/21 22:00 179/63 H 94 07/13/21 21:50 174/62 H 94 07/13/21 21:40 185/78 H 95 07/13/21 21:33 174/105 H 95 07/13/21 19:29 96 07/13/21 19:17 183/72 H 96 07/13/21 16:00 07/13/21 15:44 139/79 96 07/13/21 11:00 20 19 88 L 95 93 07/13/21 08:00 07/13/21 07:26 93 07/13/21 07:05 173/71 H 91 07/13/21 04:56 146/86 H 93 07/13/21 01:57 07/12/21 23:23 156/77 H Pulse Ox Pulse Ox 07/13/21 22:00 07/13/21 21:50 07/13/21 21:40 07/13/21 21:33 07/13/21 19:29 07/13/21 19:17 07/13/21 16:00 07/13/21 15:44 07/13/21 11:00 94 86 L 07/13/21 08:00 07/13/21 07:26 07/13/21 07:05 07/13/21 04:56 07/13/21 01:57 07/12/21 23:23 Pain Intensity Head: Pain Intensity: 3 Transfer of Care Handoff Completed per policy Notes Mental Status: alert / awake / arousable and participated in evaluation Patient Amnestic to Procedure: Yes Nausea / Vomiting: adequately controlled Pain: adequately controlled Airway Patency, RR, SpO2: stable & adequate BP & HR: stable & adequate Hydration State: stable & adequate Anesthetic Complications: no major complications apparent
[2021-07-13] MEDS ORDERED: METOPROLOL TARTRATE 1 MG/ML VIAL IV PRN (22:42)
[2021-07-13] MEDS: ATORVASTATIN 10 MG TAB PO SCH (22:45)
[2021-07-13] MEDS: MELATONIN 3 MG TAB PO SCH (22:46)
[2021-07-13] MEDS: MONTELUKAST SODIUM 10 MG TABLET PO SCH (22:46)
[2021-07-14] MEDS: ALBUTEROL HFA 8 GM INHALER INH SCH ×2 (07:23→19:32)
[2021-07-14 07:39] LABS: BUN Creatinine Ratio 24.5 (10-20); Calcium 9.1 mg/dl (8.5-10.1); Creatinine Clr Calc Pharmacy 32.9 ml/min; Est GFR (African American) 38.2 ml/min; Magnesium 2.2 mg/dl (1.8-2.4); Potassium 4.9 mmol/L (3.5-5.1)
[2021-07-14] MEDS: POLYETHYLENE (MIRALAX) 17 GM PACK PO SCH (08:11)
[2021-07-14] MEDS: FLUTICASONE/VILANTEROL 100/25MCG 14 PUFFS/INHALER INH SCH (08:11)
[2021-07-14] MEDS: INSULIN ASPART 100 UNITS/ML 3 ML PEN SC SCH ×4 (08:11→21:08)
[2021-07-14] MEDS: INSULIN GLARGINE SOLOSTAR 100 UNITS/ML 3 ML PEN SC SCH (08:12)
[2021-07-14] MEDS: HEPARIN SOD 5,000 UNIT/0.5 ML VIAL SQ SCH ×2 (08:40→21:06)
--- NOTE | 2021-07-14 09:26 | Gastroenterology Progress Note ---
Date of Service July 14, 2021 Assessment & Plan (1) Dysphagia: (2) Food bolus obstruction of intestine: Plan: 1. NPO for now. 2. Video swallow and IRRIGATION SYSTEM INSTALLER eval and treat. 3. Barium swallow study. 4. Further recommendations pending results of testing. Admission and Anticipated Discharge Date Admission Date: July 05, 2021 Supervising Physician Co-Signing Physician Notes I personally evaluated the patient and agree with the findings as documented by BARBARA Miller Exam: abd: soft, nt, nd Subjective Patient is doing well status post EGD with Dr. Orellana for food bolus last evening. She is doing well. Denies any chest pain, shortness of breath. No abdom inal pain. Reports hunger. Remains NPO. Review of Systems Constitutional: no fever and no chills Respiratory: as per Subjective / HPI Cardiovascular: as per Subjective / HPI Gastrointestinal: as per Subjective / HPI Physical Exam Constitutional: WD/WN, vitals as above Respiratory: normal respiratory effort, lungs clear to auscultation Cardiovascular: RRR, no murmur, no edema Gastrointestinal (Abdomen): normal bowel sounds, soft, nontender, no hepatosplenomegaly Psychiatric: A+Ox3, euthymic affect Results & Data Results & Data ([facility]) Vital Signs (Past 12 Hours) Vital Signs Temp Pulse Pulse Resp BP Pulse Ox 07/14/21 08:00 61 07/14/21 07:24 78 18 95 07/14/21 07:19 37 C 80 18 147/55 H 92 07/14/21 05:26 61 07/14/21 04:23 36.6 C 73 16 158/74 H 96 07/14/21 01:00 66 160/72 H 07/14/21 00:00 58 L 175/73 H 07/13/21 23:00 62 187/78 H 07/13/21 22:44 55 L 165/80 H 07/13/21 22:14 37 C 55 L 16 179/86 H 07/13/21 22:10 57 L 18 180/67 H 96 07/13/21 22:00 55 L 20 179/63 H 94 07/13/21 21:50 55 L 18 174/62 H 94 07/13/21 21:40 61 21 185/78 H 95 07/13/21 21:33 36.1 C L 61 20 174/105 H 95 PG Care Time/CCT Total # of Minutes Spent Total Time Spent with Patient: Total time spent is greater than 50% in coordination of care (as documented) at patient's floor/unit and/or counseling patient: Coding Level of Care Code 50757 Subseq Hosp Care Lvl 3 Diagnoses Dysphagia R13.10 Food bolus obstruction of intestine K56.699
--- NOTE | 2021-07-14 15:03 | Fluoroscopy Report ---
VIDEO SWALLOW STUDY CLINICAL HISTORY: Retained food bolus. COMPARISON STUDY: CT of the neck dated 07/13/2021. FLUOROSCOPY TIME: 2 minutes. FINDINGS: Fluoroscopic guidance was provided to the Department of Speech Pathology in performing a vi maggie swallow study. The patient consumed barium-impregnated pudding, a cracker with paste, nectar thic k liquid, and thin barium while the swallowing mechanism was observed in real-time. There was pharyng eal penetration with thin barium. No aspiration was seen with any of the sampled textures. IMPRESSION: 1. There was pharyngeal penetration with thin barium. 2. No aspiration was seen with any of the sampled textures. 3. See dedicated speech pathology report for detailed findings and recommendations. Dictated: 07/14/2021 2:27 PM Transcribed: 07/14/2021 2:41 PM Pau [id number] [email or web address] Electronically signed by: Italo Whelan M.D. 07/14/2021 3:02 PM
--- NOTE | 2021-07-14 17:19 | Hospitalist Progress Note ---
Date of Service July 14, 2021 Assessment & Plan (1) Food impaction of esophagus: Plan: Dispo: Pending PT/OT, observing tolerance of diet overnight, progressing towards discharge Video swallow: Mild oral dysphagia, no pharyngeal dysphagia or aspiration. Recommend slippery diet. Safe swallow strategies reviewed, of note patient with large gulps of all consistencies tested and constant cues to take small bites and small sips throughout testing were mostly unsuccessful. LABORER PIE BAKERY in agreement that rate and amount likely contributing to patient's aspiration into the EGD food bolus removal. EGD: Food impaction of entire esophagus, removed 07/13 CTneck: No acute abnormality, upper esophagus filled with fluid (treated with EGD noted above) Continue PPI Avoid scopolamine patch as drying effect of patch could have made this issue worse. (2) Vertigo: Plan: -MRI brain negative ruling out VEHICLE SAFETY INSPECTOR causes of vertigo such as acute CVA. -Her history is c/w development of a URI about 10 days ago, followed by acute vertigo a few days later. - Episodes are <30 seconds, provoked by head movements, etc. -This is likely vestibular neuritis from a viral infection. - Appreciate Pt eval = vestibular eval c/w L inner ear issues; kennedy done. - Continued to improve today, minimal sx - No symptoms to suggest Meniere's (denied tinnitus, denied hearing loss). - If vertigo persists after d/c --- ENT referral. (3) URI (upper respiratory infection): Plan: -RSV negative -COVID negative -resolved (4) Wheezing: Plan: URI with reactive bronchitis/wheezing - improved/resolved. Day #7 of steroids. Stop prednisone after this am's dose. Cont bronchodilators scheduled. Cont mucinex 1200mg BID. (5) Pulmonary hypertension: Plan: severe on echo. V/Q scan low prob for PE. Dopplers neg for DVT. 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 records from about reference severe JOSEFINA on sleep study -- "profound episodes of hypoxia" were noted during the [facility]. had UPPP surgery but this surgery often fails to fix JOSEFINA. staff here state she snores very badly. suspect her JOSEFINA has persisted leading to pulm HTN/ right heart enlargement. thus - O2 requirement likely combination of severe pulm HTN (and her bronchitis). [facility] CHF program referral as she is at risk of cor pulmonale BIPAP HS for JOSEFINA but unfortunately she continues to refuse it refer to sleep medicine post-d/c; perhaps there are new masks pt could try out. Patient agreeable to this, although continues to refuse mask BiPAP during inpatient (6) Right heart enlargement: Plan: suspect 2nd to long-standing JOSEFINA and pulm HTN. fortunately RV systolic function remains intact despite the enlargement. needs suspected JOSEFINA treated but uncertain she would comply with CPAP. had UPPP procedure in past but this is often ineffective at resolving JOSEFINA. could have central sleep apnea, too, from heart issues. refusing BIPAP (7) (HFpEF) heart failure with preserved ejection fraction: Plan: Concerned during hospitalization for decompensated CHF. Appears clinically relatively euvolemic today Symptoms/signs more c/w viral URI illness. Holding additional lasix. (8) Hypertension: Plan: Cont metoprolol Cont norvasc 5mg BID Cont lisinopril 20 BID (9) CKD (chronic kidney disease), stage III: Plan: stage 3b Creatinine baseline appears to be 1.41.5, 1.45 today -had mild bump Cr with diuresis -LUZ held, then resumed -further diuresis held (10) Type 2 diabetes mellitus: Plan: HbA1c 7.2% this admission. Cont to hold metformin and glipizide. Cont novolog Cont lantus resume oral meds at d/c (11) Asthma: Plan: WITH EXACERBATION. resolved. suspect 2nd to viral etiology. Prednisone course completed cont albuterol q6h. (12) Mood disorder: Plan: given patient's extreme fatigue seroquel was held she has been more alert since holding seroquel she has had no delirium or paranoia/psychotic symptoms to warrant ongoing use of the seroquel d/c it at discharge from hospital (13) Obstructive sleep apnea: Plan: h/o UPPP surgery years ago does not use CPAP or NC O2 at the [place] ideally needs sleep study given her right heart findings and pulm HTN on echo but uncertain she would comply with CPAP cont NC O2 see discussion above (14) Peripheral neuropathy: (15) Hyperlipidemia: Plan: Continue atorvastatin (16) Morbid obesity: Plan: BMI about 40 (17) Iron deficiency anemia: Plan: ferritin and transferrin sat c/w such venofer 200mg IV x 1, followed by 300mg x 1 during this admission fecal occult negative CBCs have been stable (18) DVT prophylaxis: Plan: Heparin 7,500 units SQ BID (19) Fatigue: Plan: trial BIPAP at HS - refused seroquel discontinued continue NC O2 [id number] TSH wnl fatigue is improved with the above (20) Hyperkalemia: Plan: 2nd MARIELY kayexalate 15gm x 1 resolved (21) Chronic respiratory failure with hypoxia and hypercapnia: Plan: 2-step O2 test today -- needs 2 liters NC O2 continuously 2nd to pulmonary HTN Admission and Anticipated Discharge Date Admission Date: July 05, 2021 Subjective Angie seen at the bedside this morning. She reports she feels improved after having the fluid removed on EGD but it was "really scary ". She reports she has never had that feeling of food getting stuck and building up before. Reports she has not had difficulty swallowing before. She feels improved today and denies chest pain, chest pressure, shortness of breath, difficulty breathing, palpitations, lightheadedness, dizziness, syncope, presyncope, nausea, vomiting, diarrhea, constipation. She reports she continues to have some dizziness and vertigo but which seems to be improving day by day. Discussed her pulmonary hypertension as potentially caused by underlying sleep apnea. She reports that she "just could absolutely not tolerate "the mass she tried, but had not tried other masks and evaluations. Encouraged her to try different fitting devices to find one tolerating to her as uncontrolled sleep apnea are likely to continue to cause pulmonary hypertension and can affect her heart. Patient expressed an understanding of this, and open to sleep med referral but continues to refuse mask BiPAP at this time Review of Systems Review of Systems: 10 point review of systems negative except as noted in subjective Physical Exam Physical Exam: General: A&Ox3. NAD. Cooperative. HEENT: Atraumatic, normocephalic. Visual acuity and hearing grossly intact. Pulm: CTAB A&P. -wheezes, -rales, -rhonchi. Symmetrical chest rise. No increase work of breathing. No respiratory distress. Cardiac: RRR, -mrg. Radial pulses intact and symmetrical. Abdominal: Nontender, nondistended, soft. BS present. Extremities: Moving all extremities equally, warm and dry, sensation to soft touch intact in hands and feet. Sugar Mixer strength and ankle dorsiflexion/plantar flexion and hip flexion intact and grossly symmetrical Results & Data Results & Data ([facility]) Vital Signs (Past 12 Hours) Vital Signs Temp Pulse Pulse Resp BP Pulse Ox 07/14/21 15:49 36.6 C 61 18 126/74 93 07/14/21 10:39 36.3 C L 63 19 143/76 H 92 07/14/21 08:00 61 07/14/21 07:24 78 18 95 07/14/21 07:19 37 C 80 18 147/55 H 92 07/14/21 05:26 61 PG Care Time/CCT Total # of Minutes Spent Total Time Spent with Patient: Total time spent is greater than 50% in coordination of care (as documented) at patient's floor/unit and/or counseling patient: Coding Level of Care Code 51848 Subseq Hosp Care Lvl 3 Diagnoses Food impaction of esophagus T18.128A Vertigo R42 URI (upper respiratory infection) J06.9 Wheezing R06.2 Pulmonary hypertension I27.20 Right heart enlargement I51.7 (HFpEF) heart failure with preserved ejection fraction I50.30 Hypertension I10 CKD (chronic kidney disease), stage III N18.30 Type 2 diabetes mellitus E11.9 Asthma J45.909 Mood disorder F39 Obstructive sleep apnea G47.33 Peripheral neuropathy G62.9 Hyperlipidemia E78.5 Morbid obesity E66.01 Iron deficiency anemia D50.9 DVT prophylaxis Z29.9 Fatigue R53.83 Hyperkalemia E87.5 Chronic respiratory failure with hypoxia and hypercapnia J96.11; J96.12
[2021-07-14] MEDS: MONTELUKAST SODIUM 10 MG TABLET PO SCH (21:06)
[2021-07-14] MEDS: MELATONIN 3 MG TAB PO SCH (21:16)
[2021-07-14] MEDS: lisinopril 20 MG TAB PO SCH (21:25)
[2021-07-14] MEDS: amLODIPine BESYLATE 5 MG TAB PO SCH (21:26)
[2021-07-14] MEDS: ATORVASTATIN 10 MG TAB PO SCH (21:26)
[2021-07-14] MEDS: METOPROLOL TARTRATE 25 MG TAB PO SCH (21:27)
[2021-07-14] MEDS: ACETAMINOPHEN 325 MG TAB PO PRN (23:05)
[2021-07-15 07:05] LABS: Basophils # (auto) 0.02 K/uL (0-0.2); Basophils % (auto) 0.2 %; Eosinophils # (auto) 0.66 K/uL (0-0.5); Eosinophils % (auto) 6.3 %; Hematocrit (blood only) 33.7 % (37-47); Hemoglobin 9.9 g/dL (12.0-16.0); Immature Granulocytes # (auto) 0.06 K/uL (0.00-0.02); Immature Granulocytes % (auto) 0.6 %; Lymphocytes # (auto) 1.84 K/uL (1.2-3.4); Lymphocytes % (auto) 17.6 %; Mean Corpuscular Hemoglobin 25.3 pg (25-34); Mean Corpuscular Hgb Conc 29.4 g/dL (32-36); Mean Platelet Volume 10.2 fL (7.4-10.4); Monocytes # (auto) 0.88 K/uL (0.11-0.59); Monocytes % (auto) 8.4 %; Neutrophils # (auto) 6.98 K/uL (1.4-6.5); Neutrophils % (auto) 66.9 %; Platelet Count 302 K/uL (130-400); RDW Coefficient of Variation 19.1 % (11.5-14.5); Red Blood Count 3.92 M/uL (4.2-5.4); White Blood Count 10.44 K/uL (4.8-10.8)
[2021-07-15] MEDS: ALBUTEROL HFA 8 GM INHALER INH SCH (07:05)
[2021-07-15 07:23] LABS: Calcium 8.7 mg/dl (8.5-10.1); Creatinine Clr Calc Pharmacy 30.7 ml/min; Est GFR (African American) 35.3 ml/min; Est GFR (Non-African American) 30.4 ml/min
[2021-07-15] MEDS: POLYETHYLENE (MIRALAX) 17 GM PACK PO SCH (08:01)
[2021-07-15] MEDS: FLUTICASONE/VILANTEROL 100/25MCG 14 PUFFS/INHALER INH SCH (08:01)
[2021-07-15] MEDS: SENNA 8.6 MG TAB PO SCH (08:01)
[2021-07-15] MEDS: HEPARIN SOD 5,000 UNIT/0.5 ML VIAL SQ SCH (08:02)
[2021-07-15] MEDS: lisinopril 20 MG TAB PO SCH (08:05)
[2021-07-15] MEDS: amLODIPine BESYLATE 5 MG TAB PO SCH (08:05)
[2021-07-15] MEDS: INSULIN GLARGINE SOLOSTAR 100 UNITS/ML 3 ML PEN SC SCH (08:07)
[2021-07-15] MEDS: INSULIN ASPART 100 UNITS/ML 3 ML PEN SC SCH ×3 (08:08→17:10)
[2021-07-15] MEDS ORDERED: ALBUTEROL HFA 8 GM INHALER INH PRN (09:17)
[2021-07-15] MEDS: CHOLECALCIFEROL 1,000 UNITS 25 MCG TAB PO SCH (09:56)
[2021-07-15] MEDS: predniSONE 10 MG TABLET PO SCH (09:57)
[2021-07-15] MEDS: PANTOprazole 40 MG TAB PO SCH (09:57)
[2021-07-15] MEDS: ASPIRIN 81 MG ECTAB PO SCH (09:57)
[2021-07-15] MEDS: CALCIUM CARBONATE 1250MG TAB PO SCH (09:57)
[2021-07-15] MEDS: METOPROLOL TARTRATE 25 MG TAB PO SCH (09:58)
--- NOTE | 2021-07-15 15:08 | Discharge Summary ---
Date of Service July 15, 2021 Admission HPI Per Admitting Provider The patient is a 85-year old female with a past medical history including chronic renal insufficiency, peripheral edema, prolapse of female pelvic organs, anemia, alexandr B12 deficiency, chronic low back pain, asthma, benign essential tremor, chronic cerebral ischemia, hyperlipidemia, mood disorder, JOSEFINA, osteoarthritis, peripheral neuropathy, vitamin D deficiency, diabetes mellitus type 2 and hypertension. She presents with symptoms as noted above. Work-up in the emergency department included chest x-ray suggestive of mild CHF and left pleural effusion. Admission Exam Per Admitting Provider The patient is awake, alert and oriented 3, well developed and well nourished, normocephalic and atraumatic, lying in bed and in no acute distress. HEENT--PERRL, EOMI, mucous membranes and oropharynx normal Neck--supple. No JVD. No bruits. Thyroid normal, trachea midline, no adenopathy. Heart--normal S1 and S2. No murmurs, rubs or gallops. Lungs--crackles at the bases bilaterally. No respiratory distress, no accessory muscle use. Abdomen--normal bowel sounds and soft. Nontender. Nondistended. Morbid obesity. Extremities--no cyanosis or clubbing. 3+ bilateral pretibial pitting edema. Dermatologic--normal skin turgor, normal color, no abnormal lymph nodes, no rash. Neurologic--cranial nerves II through XII grossly intact. Rheumatologic--normal range of motion. Psychiatric--normal affect. Principal Diagnosis Vertigo/dizziness Food impaction of esophagus Discharge Exam General: A&Ox3. NAD. Cooperative. HEENT: Atraumatic, normocephalic. Visual acuity and hearing grossly intact. Pulm: CTAB A&P. -wheezes, -rales, -rhonchi. Symmetrical chest rise. No increase work of breathing. No respiratory distress. Cardiac: RRR, -mrg. Radial pulses intact and symmetrical. Abdominal: Nontender, nondistended, soft. BS present. Extremities: Moving all extremities equally, warm and dry, sensation to soft touch intact in hands and feet. 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 and ankle dorsiflexion/plantar flexion and hip flexion intact and grossly symmetrical Discharge Data Allergies Allergy/AdvReac Type Severity Reaction Status Date / Time coconut Allergy Intermediate Rash Verified 07/02/21 08:54 peanut Allergy Intermediate Rash Verified 07/02/21 08:54 blueberry Allergy Verified 07/11/21 14:58 raspberry Allergy Verified 07/11/21 14:58 oxycodone [From OxyContin] AdvReac Mild hallucinati Verified 07/09/21 20:35 on Consultations 07/05/21 05:49 ED Decision to Admit Stat 07/10/21 09:28 [facility] CHF Program Referral Routine 07/13/21 17:47 Consult Gastroenterology Routine Procedures Performed Operation Date: 07/13/21 20:00 Actual Procedures p upper gastrointestinal endoscopy with remval of foreign body(Not Applicable) - Theodore Orellana MD Ordered Studies 07/06/21 13:00 CT chest diagnostic wo con Routine 07/07/21 09:00 US venous doppler LE BI Routine 07/09/21 16:54 MR brain wo con Routine 07/13/21 14:28 CT soft tissue neck wo con Routine 07/14/21 09:17 FL video swallow Urgent Hospital Course (1) Food impaction of esophagus: Rosalia is an 85-year-old female who presented with dizziness and his hospital course was complicated by impacted food bolus of the esophagus To do as outpatient: 1. Follow-up with GI for reevaluation of dysphagia 2. Routine follow-up with PCP 3. Follow-up with CHF clinic 4. ENT referral if persistent vertigo after discharge 5. Follow-up for sleep medicine and fitting of various CPAP devices. There is a good looking important as patient was shown to have severe pulmonary hypertension and right heart enlargement, is intolerant of standard CPAP/BiPAP mask and refused during admission. Effect of untreated JOSEFINA on cardiac function and pulmonary hypertension was discussed with patient and family during admission. Dysphagia, impacted food bolus of esophagus Video swallow: Mild oral dysphagia, no pharyngeal dysphagia or aspiration. Recommend slippery diet. Safe swallow strategies reviewed, of note patient with large gulps of all consistencies tested and constant cues to take small bites and small sips throughout testing were mostly unsuccessful. HEALTH PLAN SPECIALIST in agreement that rate and amount likely contributing to patient's aspiration into the EGD food bolus removal. EGD: Food impaction of entire esophagus, removed 07/13 CTneck: No acute abnormality, upper esophagus filled with fluid (treated with EGD noted above) Continue PPI Avoid scopolamine patch as drying effect of patch could have made this issue worse. (2) Vertigo: -MRI brain negative ruling out EASTER BUNNY causes of vertigo such as acute CVA. -Her history is c/w development of a URI about 10 days ago, followed by acute vertigo a few days later. - Episodes are <30 seconds, provoked by head movements, etc. -This is likely vestibular neuritis from a viral infection. - Appreciate Pt eval = vestibular eval c/w L inner ear issues; kennedy done. - Continued to improve today, minimal sx - No symptoms to suggest Meniere's (denied tinnitus, denied hearing loss). - If vertigo persists after d/c --- ENT referral. (3) URI (upper respiratory infection): -RSV negative -COVID negative -resolved (4) Wheezing: URI with reactive bronchitis/wheezing - improved/resolved. Day #7 of steroids. Stop prednisone after this am's dose. Cont bronchodilators scheduled. Cont mucinex 1200mg BID. (5) Pulmonary hypertension: severe on echo. V/Q scan low prob for PE. Dopplers neg for DVT. 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 records from about reference severe JOSEFINA on sleep study -- "profound episodes of hypoxia" were noted during the stuy. had UPPP surgery but this surgery often fails to fix JOSEFINA. staff here state she snores very badly. suspect her JOSEFINA has persisted leading to pulm HTN/ right heart enlargement. thus - O2 requirement likely combination of severe pulm HTN (and her bronchitis). [facility] [place] as she is at risk of cor pulmonale BIPAP/CPAP HS for JOSEFINA but unfortunately she continues to refuse it refer to sleep medicine post-d/c; perhaps there are new masks pt could try out. Patient agreeable to this, although continues to refuse mask during inpatient (6) Right heart enlargement: suspect 2nd to long-standing JOSEFINA and pulm HTN. fortunately RV systolic function remains intact despite the enlargement. needs suspected JOSEFINA treated but uncertain she would comply with CPAP. had UPPP procedure in past but this is often ineffective at resolving JOSEFINA. could have central sleep apnea, too, from heart issues. refusing BIPAP (7) (HFpEF) heart failure with preserved ejection fraction: Concerned during hospitalization for decompensated CHF. Appears clinically relatively euvolemic today Symptoms/signs more c/w viral URI illness. Holding additional lasix. (8) Hypertension: Cont metoprolol Cont norvasc 5mg BID Cont lisinopril 20 BID (9) CKD (chronic kidney disease), stage III: stage 3b Creatinine baseline appears to be 1.41.5 5, normalized near baseline during admission -had mild bump Cr with diuresis -LUZ held, then resumed -further diuresis held (10) Type 2 diabetes mellitus: HbA1c 7.2% this admission. Cont to hold metformin and glipizide. Cont novolog Cont lantus resume oral meds at d/c (11) Asthma: WITH EXACERBATION. resolved. suspect 2nd to viral etiology. Prednisone course completed cont albuterol q6h. (12) Mood disorder: given patient's extreme fatigue seroquel was held she has been more alert since holding seroquel she has had no delirium or paranoia/psychotic symptoms to warrant ongoing use of the seroquel d/c it at discharge from hospital (13) Obstructive sleep apnea: h/o UPPP surgery years ago does not use CPAP or NC O2 at the [place] ideally needs sleep study given her right heart findings and pulm HTN on echo but uncertain she would comply with CPAP cont NC O2. Sleep study performed, prescribed oxygen as noted below see discussion above (14) Peripheral neuropathy: (15) Hyperlipidemia: Continue atorvastatin (16) Morbid obesity: BMI about 40 (17) Iron deficiency anemia: ferritin and transferrin sat c/w such venofer 200mg IV x 1, followed by 300mg x 1 during this admission fecal occult negative CBCs have been stable (18) DVT prophylaxis: Heparin 7,500 units SQ BID (19) Fatigue: trial BIPAP at HS - refused seroquel discontinued continue NC O2 [id number] TSH wnl fatigue is improved with the above (20) Hyperkalemia: 2nd MARIELY kayexalate 15gm x 1 resolved (21) Chronic respiratory failure with hypoxia and hypercapnia: 2-step O2 test today -- needs 2 liters NC O2 continuously 2nd to pulmonary HTN Total Time Total Time Spent Total Time Spent (In Minutes): Total time spent preparing discharge on day of discharge approximately 35 minutes including direct patient care, coordination of care, documentation, and review of labs and images Discharge Plan Discharge Items Patient Disposition: Personal Chcf Reason For Visit: CHF, PLEURAL EFFUSION Discharge Diagnosis: Vertigo CHF Acute impacted food bolus Activity: Resume your previous activity Non-emergency contact: Primary Care Provider Call non-emergency contact if: you have any medication questions, your symptoms worsen, your pain is not controlled and you have a fever Follow-up/Referrals: Renee Arias MD [Primary Care Provider] - Blanca Cardona PA-C [Physician Document Reviewer] - 07/17/21 2:00 pm (Congestive Heart Failure Program Appointment Information Early follow up is essential to managing your heart failure. An appointment has been scheduled for you with the [facility] Heart Failure Program within 7 days of discharge. Anticipate this visit to be 30-60 minutes long. Please expect a conical mixer phone call from one of our nurses approximately 48 hours from discharge. They will also be placing an order for lab work to be completed 1-2 days prior to your heart failure follow up appointment. Please be sure to have this done so we can go over the results when you come in. Office Location The cardiology office building is located in front of the hospital at [address] [facility]. Bring the following with you to your follow-up doctor appointments: Please bring your daily weight log any discharge paperwork all of your medication bottles with you to this visit. ) Diet: Heart Healthy and Low Sodium (2gm) Addtl Attending Provider Instructions: You were seen in the hospital for dizziness and had a hospital course complicated by an acute food bolus/food impaction of the esophagus. You had a video study of your swallowing function, you had some difficulty with swallowing at the level of the mouth but the swallowing function of your throat/esophagus was normal. It was noted that you tended to take larger bites during the study, it is important to eat slowly and take small bites to prevent food getting stuck or choking. In addition a slippery diet was recommended. Avoid dry foods such as toast and crackers which may get stuck easily. Thin liquids may also be hard to swallow alone, the best textures are small soft bites and slightly thickened liquids. A follow-up appoint is being scheduled for your primary care provider Dr. Karolina vang. You should be seen within 1 to 2 weeks. If you do not receive a call to confirm your appointment, please contact their office at the number above. A follow-up appointment has been scheduled for you with the heart failure clinic. You have had an appointment scheduled for 07/17/2021 at 2:00 PM. If you need to change this appointment, please call their office directly at the number above. You may need a follow-up appointment with gastroenterology to follow-up on your dysphagia. Please discuss a follow-up referral with your primary care provider at your above follow-up appointment. You had a sleep study performed given your right heart findings and pulmonary hypertension and concern for compliance with CPAP. Is been recommended that you continue nasal cannula oxygen at home as noted/prescribed below. If you develop any new or worsening symptoms including fever, chills, sweats, chest pain, chest pressure, difficulty breathing, uncontrolled nausea/vomiting, rash, wheezing, passing out or nearly passing out, bleeding, black/bloody bowel movements, or other new or concerning symptoms please call your primary care physician, or call 911 for re-evaluation in the emergency department if you are very concerned. Addtl Bullet Assembly Press Operator Provider Instructions: Call your Primary Care doctor if any of the following symptoms or problems start or get worse: * Shortness of breath or difficulty breathing * Wake up at night short of breath * Chest pain * Cough * Swelling of your hands, feet, or legs * More fatigued or tired with your normal activity * Palpitations - sudden fast heart beats WEIGHT * Weigh yourself every morning after using the bathroom. * Use the same scale. * Wear the same amount of clothing. * Write your weight down on a chart. * Call your Primary Care doctor if you gain more than 2-3 pounds in 1-2 days. MEDICATIONS * Use this discharge instruction sheet for medication instructions. * Take your medications at the time your doctor ordered. * Do not skip a dose of your medicines. * If you miss a dose of medicine, take it as soon as possible, but DO NOT DOUBLE A DOSE. * Read your medicine information when you get home. * Know all of the side effects of your medicine. If in doubt, ask your pharmacist * Call your Primary Care doctor's office if you have any side effects. * Be sure all of your doctors know what medicine and herbs you take (including cold, flu, and herbal medicine). Take the following with you to your follow-up doctor appointments: * Weight Chart * Medication List * List of questions Do not drink excessive alcohol, beer or wine. Pending Studies at Discharge: No Stand-Alone Forms: [employer], Smoking Cessation Skilled Items Patient informed of condition?: Yes DNR: No Discharge Level of Care: Other Communicable Disease: No Discharge Prognosis: Stable Lines: None Urinary Catheter: No Medications and DC Order Prescriptions: New (DME) Oxygen Home Liters Per Minute See Rx Instructions .ROUTE .MEDSUPPLY Qty: 1 RF: 0 Continued nystatin [Nystop] 100,000 unit/gram powder 1 appln TOP BID PRN (Reason: irritation) Qty: 30 RF: 0 calcium carbonate-vitamin D3 500mg (1,250mg) -600 unit tablet 1 tab PO DAILY Qty: 90 RF: 3 aspirin [Aspirin Low Dose] 81 mg tablet,delayed release (DR/EC) 81 mg PO DAILY Qty: 90 RF: 3 Bengay Greaseless 15-10 % cream 1 applic topical BID PRN (Reason: muscle pain) Qty: 57 RF: 5 tramadol 50 mg tablet 50 mg PO Q8H PRN (Reason: pain) Qty: 90 RF: 5 amlodipine 5 mg tablet 5 mg PO DAILY Qty: 90 RF: 3 metformin 500 mg tablet 500 mg PO BID Qty: 180 RF: 3 furosemide [Lasix] 20 mg tablet 20 mg PO .COMPLEX Qty: 90 RF: 3 glimepiride 1 mg tablet 1 mg PO QAM Qty: 90 RF: 3 metoprolol tartrate 50 mg tablet 50 mg PO BID Qty: 180 RF: 3 pantoprazole 40 mg tablet,delayed release (DR/EC) 40 mg PO DAILY Qty: 90 RF: 3 atorvastatin 10 mg tablet 10 mg PO HS Qty: 90 RF: 3 montelukast 10 mg tablet 10 mg PO HS Qty: 90 RF: 3 quetiapine 50 mg tablet 50 mg PO HS Qty: 90 RF: 3 lisinopril 20 mg tablet 20 mg PO BID Qty: 180 RF: 3 cyanocobalamin (vitamin B-12) 1,000 mcg/mL solution 1,000 mcg IM MONTHLY Qty: 1 RF: 5 acetaminophen 325 mg tablet 650 mg PO Q4H PRN (Reason: pain) Qty: 120 RF: 0 cholecalciferol (vitamin D3) 125 mcg (5,000 unit) tablet 125 mcg PO DAILY Qty: 90 RF: 3 polysaccharide iron complex [Ferrex 150] 150 mg iron capsule 150 mg PO DAILY Qty: 90 RF: 3 fluticasone propion-salmeterol [Advair Diskus] 100-50 mcg/dose blister with device 1 inh inhalation BID Qty: 180 RF: 3 albuterol sulfate 90 mcg/actuation HFA aerosol inhaler 2 puff inhalation Q6H PRN (Reason: shortness of breath or wheezing) Qty: 8.5 RF: 5 Discharge Orders: Discharge Order (Routine); Ordered 07/15/21 Ordered By: Ricky Hull/Other Patient Handouts: A1C, Managing Type 2 Diabetes Admission Data Admit Date/Time: 07/05/21 06:12 Attending Provider: Ricky Hernandez Admit Provider: Og Grewal Primary Care Provider: Renee Arias Other Providers: Morris Warner ; Og Grewal ; Blanca Cardona ; Theodore Orellana Coding Level of Care Code D/C DAY MANAGEMENT >30 MINS Diagnoses Food impaction of esophagus T18.128A Vertigo R42 URI (upper respiratory infection) J06.9 Wheezing R06.2 Pulmonary hypertension I27.20 Right heart enlargement I51.7 (HFpEF) heart failure with preserved ejection fraction I50.30 Hypertension I10 CKD (chronic kidney disease), stage III N18.30 Type 2 diabetes mellitus E11.9 Asthma J45.909 Mood disorder F39 Obstructive sleep apnea G47.33 Peripheral neuropathy G62.9 Hyperlipidemia E78.5 Morbid obesity E66.01 Iron deficiency anemia D50.9 DVT prophylaxis Z29.9 Fatigue R53.83 Hyperkalemia E87.5 Chronic respiratory failure with hypoxia and hypercapnia J96.11; J96.12
--- NOTE | 2021-07-25 12:06 | Coding Query ---
CONGESTIVE HEART FAILURE To Promote full compliance with coding requirements relating to patient care, physician participation is requested in all cases of bale stacker uncertainty. Please assist us with the following questions. A diagnosis of Congestive Heart Failure is documented in the patient's medical record. To accurately code this diagnosis and to compare patient severity, we ask that you specify the type of heart failure by placing an X within the parenthesis (x). SYSTOLIC HEART FAILURE ( ) Acute ( ) Chronic ( ) Acute on Chronic ( ) Rheumatic ( ) Unknown DIASTOLIC HEART FAILURE ( ) Acute ( X ) Chronic ( ) Acute on Chronic ( ) Rheumatic ( ) Unknown COMBINED SYSTOLIC AND DIASTOLIC HEART FAILURE ( ) Acute ( ) Chronic ( ) Acute on Chronic ( ) Rheumatic ( ) Unknown Was the CHF Present On Admission? Please check the appropriate box: ( ) Present on Admission ( ) Not Present On Admission ( X ) Clinically undetermined Thank you Natalia Fisher, - Please note I did not care for this patient at their admission, only for 1 day prior to discharge and day of discharge. Per review of the most recent ECHO with a preserved EF and history of lasix requirement appears to be chronic EF. I did not see this patient on admission, but on review on the H&P and initial notes it appears that the provider felt it was unclear if AoC CHF was present as she was clinically hypervolemic but with a clear x ray. I have marked the above with what I believe to be consistent on review, but cannot personally attest to the patients initial condition MTDD
== END 2021-07-15 17:45 | disposition home or self-care (01) | DRG 149 ==
LOC: ED 03:23 → SUATTDRO 06:12 → 2S 06:12

== ENCOUNTER 2021-10-09 19:24 | Inpatient (IN) ==
[2021-10-09 20:49] LABS: Basophils # (auto) 0.02 K/uL (0-0.2); Basophils % (auto) 0.2 %; Eosinophils # (auto) 0.44 K/uL (0-0.5); Eosinophils % (auto) 4.4 %; Hematocrit (blood only) 39.7 % (37-47); Hemoglobin 12.3 g/dL (12.0-16.0); Immature Granulocytes # (auto) 0.03 K/uL (0.00-0.02); Immature Granulocytes % (auto) 0.3 %; Lymphocytes # (auto) 2.18 K/uL (1.2-3.4); Lymphocytes % (auto) 21.6 %; Mean Corpuscular Hemoglobin 29.2 pg (25-34); Mean Corpuscular Volume 94.3 fL (80-100); Monocytes # (auto) 0.51 K/uL (0.11-0.59); Neutrophils # (auto) 6.92 K/uL (1.4-6.5); Neutrophils % (auto) 68.5 %; Platelet Count 254 K/uL (130-400); RDW Coefficient of Variation 19.6 % (11.5-14.5); RDW Standard Deviation 68.2 fL (36.4-46.3); Red Blood Count 4.21 M/uL (4.2-5.4)
[2021-10-09 20:55] LABS: Appearance Urine Cloudy (Clear); Bacteria Urine Automated 1+ (Negative); Bilirubin Urine Negative (Negative); Blood Urine Trace (Negative); Color Urine Yellow; Epithelial Cell Urine Auto >30 /lpf (0-5); Glucose Urine UA Negative (Negative); Ketones Urine Negative (Negative); Leukocyte Esterase Urine 3+ (Negative); Nitrite Urine Negative (Negative); RBC Urine Automated 0-4 /hpf (0-4); Specific Gravity Urine 1.009 (1.000-1.030); Urobilinogen Urine Negative (Negative); WBC Urine Automated >30 /hpf (0-5); pH Urine 7.5 (4.5-7.5)
[2021-10-09 21:00] LABS: Prothrombin Time 9.7 Seconds (9.0-12.0)
[2021-10-09 21:14] LABS: Alanine Aminotransferase 15 (12-78); Albumin Globulin Ratio 0.9 (0.9-2); Albumin Level 3.5 gm/dl (3.4-5.0); Alkaline Phosphatase 110 U/L (45-117); Aspartate Aminotransferase 15 U/L (15-37); BUN Creatinine Ratio 16.3 (10-20); Blood Urea Nitrogen 27 mg/dl (7-18); Calcium 9.5 mg/dl (8.5-10.1); Carbon Dioxide 29 mmol/L (21-32); Chloride 105 mmol/L (98-107); Creatinine Clr Calc Pharmacy 29.5 ml/min; Est GFR (African American) 32.2 ml/min; Est GFR (Non-African American) 27.8 ml/min; Glucose 115 mg/dl (70-99); Lipase 256 U/L (73-393); Magnesium 1.9 mg/dl (1.8-2.4); Phosphorus 3.5 mg/dl (2.5-4.9); Potassium 5.5 mmol/L (3.5-5.1); Sodium 137 mmol/L (136-145); Total Protein 7.5 gm/dl (6.4-8.2); Troponin I < 0.015 ng/ml (0-0.045)
[2021-10-09 21:15] LABS: Protein Urine Trace (Negative)
--- NOTE | 2021-10-09 21:31 | CT Scan Report ---
CT head/brain wo con CLINICAL HISTORY: Confusion Technique: Contiguous axial CT images of the head were acquired from the base of the skull to the miles mavis without intravenous contrast administration. Images were viewed in brain, subdural and bone [facility]. Automated dose lowering techniques and/or adjustment according to patient size were utilized for this exam. Comparison: Comparison is made to CT head 12/10/2015 Findings: The ventricles, basal cisterns, and cerebral sulci are normal. There is no acute intracranial hemorrh age or evidence of acute territorial infarction. Neither mass effect, shift of the midline structures , nor abnormal extra-axial fluid collections are shown. Imaged portions of the paranasal sinuses and mastoid air cells are clear. The orbits appear normal. There are no acute fractures of the calvaria or scalp swelling. Impression: No acute intracranial hemorrhage, no evidence of acute territorial infarction or other acute intracra nial disease process. ACT 112: Negative or not required by law. Electronically signed by: Moises Gregorio M.D. 10/09/2021 9:30 PM
--- NOTE | 2021-10-09 21:36 | Emergency Department Note ---
Impression & Plan Near syncope, Urinary tract infection, Vision changes, Hypervolemia ED Provider Note NAME: SALVADOR FRASER AGE: 85 SEX: F ARRIVES VIA: Ambulance INFORMANT: Patient, EMS ED PROVIDER(S): Cale Miller MD CHIEF COMPLAINT: Near syncope, confusion, vision changes PLAN: Disposition: Admit MEDICAL DECISION MAKING: The patient is a pleasant 85-year-old woman with a past medical history of chronic respiratory failure with hypoxia and hypercapnia, JOSEFINA, CKD, pulmonary hypertension, hyperlipidemia, mood disorder, diabetes, hypertension who presents to the emergency department from personal longterm at [facility] for evaluation of near syncope, confusion and vision changes. Report from EMS from staff at the patient's facility report that EMS was contacted for episode of near syncope and increased confusion. However the patient is a poor historian and reports none of this upon our conversation and reports that the reason she believes she came to the hospital was because at approximately 130 she felt complete loss of vision in her left eye for approximately 20-30 minutes where thereafter it had returned and she reported blurred vision that has persisted with left methodist pain/headache. The patient denies any fevers, chills, new cough or congestion, shortness of breath from her baseline, nausea, vomiting, diarrhea or urinary symptoms. Was able to discuss the patient's presentation with a staff member at her facility and she confirmed that the patient has been more confused from her baseline since this afternoon and at dinnertime was feeling dizzy where she was unable to stand up and almost passed out. When she was finally up and walking with her walker she was running into the wall which is not her norm. She had also complained of blurred vision but had a normal fingerstick and vital signs were otherwise normal. She had not mentioned to the staff member having temporary loss of vision in her left eye this afternoon. The patient is chronically ill-appearing but no acute distress, afebrile, blood pressure 190s/100s and otherwise stable vital signs. She is alert to self and place. Unclear if patient is completely alert to situation her complaint did not necessarily correlate to what was provided by EMS. She has no focal extremity weakness. She appears euvolemic to hypervolemic. EKG without overt acute ischemia. Chest x-ray negative for acute cardiopulmonary process. WBC, H/H and platelets within normal limits. Chemistry without metabolic acidosis. Creatinine 1.67, similar to prior range of values in the setting of CKD. Potassium 5.5 without acute EKG changes. LFTs are unremarkable. Troponin negative/undetectable. The patient's ESR is elevated at 69 and CRP is mildly elevated at 0.9, which is nonspecific.. COVID-19 RNA, NAAT test was negative. CT of the head negative for acute process. Given the patient's symptoms of confusion, lightheadedness and amatory dysfunction which are worse from her baseline as well as her report of acute left eye vision loss (possible amaurosis fugax) the patient agrees with plan for admission for further evaluation. Her weight does appear up from recent and so she was ordered for a dose of Lasix. Her urine does show the possibility of infection and so blood cultures were ordered and initial treatment with ceftriaxone per prior urine cultures. Dr. Grewal, [facility] hospitalist, to evaluate the patient for admission. Triage Nursing notes reviewed and agree them. Prior medical records reviewed Vital Signs: reviewed and remarkable for hypertension. Differential diagnosis: Infection, dehydration, metabolic abnormality, hypo/hyperglycemia, electrolyte disturbance, anemia, hypoxia, cardiac sources, intracerebral event, toxicologic, neurologic, as well as other pathologies. ER treatment provided: See below. Diagnostics interpreted by me: ECG: Sinus bradycardia, 55 bpm, no ectopy, no overt ST elevation or depression, QTC 415, QRS 112. Cardiac Monitoring: An order for continuous cardiac monitoring was placed and demonstrated Sinus bradycardia, 55 bpm, no ectopy. Laboratory studies: See below Imaging studies: See below Consultation(s): Dr. Grewal, [facility] hospitalist, to evaluate the patient for admission. HPI: The patient is a pleasant 85-year-old woman with a past medical history of chronic respiratory failure with hypoxia and hypercapnia, JOSEFINA, CKD, pulmonary hypertension, hyperlipidemia, mood disorder, diabetes, hypertension who presents to the emergency department from personal longterm at [facility] for evaluation of near syncope, confusion and vision changes. Report from EMS from staff at the patient's facility report that EMS was contacted for episode of near syncope and increased confusion. However the patient is a poor historian and reports none of this upon our conversation and reports that the reason she believes she came to the hospital was because at approximately 130 she felt complete loss of vision in her left eye for approximately 20-30 minutes where thereafter it had returned and she reported blurred vision that has persisted with left methodist pain/headache. The patient denies any fevers, chills, new cough or congestion, shortness of breath from her baseline, nausea, vomiting, diarrhea or urinary symptoms. Was able to discuss the patient's presentation with a staff member at her facility and she confirmed that the patient has been more confused from her baseline since this afternoon and at dinnertime was feeling dizzy where she was unable to stand up and almost passed out. When she was finally up and walking with her walker she was running into the wall which is not her norm. She had also complained of blurred vision but had a normal fingerstick and vital signs were otherwise normal. She had not mentioned to the staff member having temporary loss of vision in her left eye this afternoon. ROS: See above HPI for pertinent positives & negatives. A total of 10 systems reviewed and were otherwise negative. PAST MEDICAL HISTORY:See Below PAST SURGICAL HISTORY:See Below FAMILY HISTORY:See Below SOCIAL HISTORY:See Below HOME MEDICATIONS:See Below ALLERGIES:See Below VITALS:See Below PHYSICAL EXAMINATION: GENERAL: Awake, alert, chronically ill-appearing, in no distress HENT: Normocephalic, atraumatic. Oropharynx unremarkable. EYES: Normal conjunctiva. Sclera non-icteric. Visual dominique grossly intact. NECK: Supple. No nuchal rigidity. FROM. No JVD. RESPIRATORY: Diminished at the bases and otherwise clear to auscultation. CARDIAC: Regular rate, normal rhythm. Extremities warm and well perfused. Pulses equal. ABDOMEN: Soft, non-distended. No tenderness to palpation. No rebound or guarding. No masses. RECTAL: Deferred. MUSCULOSKELETAL: Chest examination reveals no tenderness. The back is symmetrical on inspection without obvious abnormality. There is no CVA te nderness to palpation. No joint edema. LOWER EXTREMITIES: Calves are equal size bilaterally and non-tender. 2+ bilateral lower extremity pitting edema. No discoloration. NEURO: Normal sensorium. No sensory or motor deficits noted. SKIN: No rash or jaundice noted. Cale Miller MD Past Med/Surg History Medical History Acute congestive heart failure Anemia Asthma Benign essential tremor Chronic cerebral ischemia Chronic low back pain Chronic renal insufficiency CKD (chronic kidney disease), stage III Hyperlipidemia Hypertension Mood disorder Obstructive sleep apnea s/p UPPP surgery Osteoarthritis Osteopenia Peripheral neuropathy Prolapse of female pelvic organs Type 2 diabetes mellitus Vitamin B12 deficiency Vitamin D deficiency Surgical History H/O wisdom tooth extraction History of knee replacement R and L History of tonsillectomy and adenoidectomy S/P appendectomy S/P cholecystectomy S/P uvulopalatopharyngoplasty S/P vaginal hysterectomy unsure if ovaries were left Family History Sister Liver cancer Denies family history of Ovarian cancer Breast cancer Colorectal cancer Uterine cancer Social History Smoking Status: Never smoker Second Hand Exposure: No; Hx Alcohol Use: No Hx Substance Use: No Preferred Language: [place] Islander Communication Ability: Effective Visual Impairment: No Limitations Hearing Ability: Normal Custodian Athletic Equipment Required: No Beliefs That Will Affect Care: None marital status: / Current Living Situation: Alone and Personal Care Facility Current Living Situation Comment: [employer] current occupational status: retired How many Children do You have: 2 Feels Safe at Home: Yes caffeine: No Physical Activity Frequency: Does not Exercise Seatbelt Use: always Assistive Devices: Oxygen - Continuous and Walker Allergies Allergies Allergy/AdvReac Type Severity Reaction Status Date / Time coconut Allergy Intermediate Rash Verified 10/09/21 20:37 peanut Allergy Intermediate Rash Verified 10/09/21 20:37 blueberry Allergy Unknown Verified 10/09/21 20:37 raspberry Allergy Unknown Verified 10/09/21 20:37 oxycodone [From OxyContin] AdvReac Mild hallucinati Verified 10/08/21 10:13 on Home Meds Home Medications Medication Instructions Recorded Confirmed acetaminophen 325 mg tablet 650 mg PO HS 10/09/21 10/09/21 calcium carbonate 600 mg-vitamin 1 tab PO DAILY 10/09/21 10/09/21 D3 5 mcg (200 unit) tablet (Calcium 600 + D(3)) dextran 70-hypromellose eye drops 1 drp OPHTHALMIC (EYE) DAILY PRN 10/09/21 10/09/21 in a dropperette (Artificial Tears (PF)) furosemide 20 mg tablet (Lasix) 20 mg PO DAILY 10/09/21 10/09/21 guaifenesin 600 mg tablet, 600 mg PO Q12H PRN 10/09/21 10/09/21 extended release 12 hr (Mucinex) methyl salicylate 15 %-menthol 10 1 applic TOPICAL BID PRN 10/09/21 10/09/21 % topical cream nystatin 100,000 unit/gram topical 1 appln TOP TID PRN 10/09/21 10/09/21 powder (Nystop) sennosides 8.6 mg tablet (Senokot) 8.6 mg PO DAILY PRN 10/09/21 10/09/21 Previous Rx's Medication Instructions Recorded tramadol 50 mg tablet 50 mg PO Q8H PRN #90 tab 10/03/20 amlodipine 5 mg tablet 5 mg PO DAILY #90 tab 02/04/21 metformin 500 mg tablet 500 mg PO BID #180 tab 03/06/21 acetaminophen 325 mg tablet 650 mg PO Q4H PRN #120 tab MDD 3g 05/26/21 or 9 tabs atorvastatin 10 mg tablet 10 mg PO HS #90 tab 05/26/21 cyanocobalamin (vitamin B-12) 1,000 mcg IM MONTHLY #1 ml 05/26/21 1,000 mcg/mL injection solution glimepiride 1 mg tablet 1 mg PO QAM #90 tab 05/26/21 lisinopril 20 mg tablet 20 mg PO BID #180 tab 05/26/21 metoprolol tartrate 50 mg tablet 50 mg PO BID #180 tab 05/26/21 montelukast 10 mg tablet 10 mg PO HS #90 tab 05/26/21 pantoprazole 40 mg tablet,delayed 40 mg PO DAILY #90 tab 05/26/21 release quetiapine 50 mg tablet 50 mg PO HS #90 tab 05/26/21 albuterol sulfate 90 mcg/actuation 2 puff INHALATION Q6H PRN #8.5 g 06/27/21 aerosol inhaler fluticasone 100 mcg-salmeterol 50 1 inh INHALATION BID #180 ea 06/27/21 mcg/dose blistr powdr for inhalation (Advair Diskus) cholecalciferol (vitamin D3) 125 125 mcg PO DAILY #90 tab 07/01/21 mcg (5,000 unit) tablet polysaccharide iron complex 150 mg 150 mg PO DAILY #90 cap 07/01/21 iron capsule (Ferrex) Oxygen Home #1 ea 07/13/21 aspirin 81 mg tablet,delayed 81 mg PO DAILY #90 tab 10/01/21 release (Aspirin Low Dose) Results & Data (ED) Vital Signs Vital Signs - 24 hr 10/09/21 19:55 10/09/21 20:00 10/09/21 20:10 Temperature 36.6 C Temperature Source Oral Pulse Rate 55 L 52 L 58 L Pulse Rate from SpO2 Sensor 53 L Respiratory Rate 17 22 16 Respiratory Effort / Characteristics Non-Labored Spontaneous Respiratory Depth Normal Respiratory Pattern Regular Blood Pressure 199/106 H Blood Pressure Mean 137 Blood Pressure Position Sitting Pulse Oximetry 100 94 Oxygen Delivery Method Nasal Cannula Nasal Cannula Nasal Cannula Oxygen Flow Rate 2 2 2 Sepsis Recent Fever Within 48 Hours No Sepsis New/Unexplained Change in Mental Status No Sepsis Action Taken by Nursing No Action Required 10/09/21 20:20 10/09/21 20:30 10/09/21 20:37 Temperature Temperature Source Pulse Rate 57 L 54 L 57 L Pulse Rate from SpO2 Sensor Respiratory Rate 18 24 19 Respiratory Effort / Characteristics Respiratory Depth Respiratory Pattern Blood Pressure 209/88 H Blood Pressure Mean 128 Blood Pressure Position Pulse Oximetry Oxygen Delivery Method Nasal Cannula Nasal Cannula Nasal Cannula Oxygen Flow Rate 2 2 2 Sepsis Recent Fever Within 48 Hours Sepsis New/Unexplained Change in Mental Status Sepsis Action Taken by Nursing 10/09/21 20:40 10/09/21 21:04 10/09/21 21:10 Temperature Temperature Source Pulse Rate 54 L 58 L 52 L Pulse Rate from SpO2 Sensor 57 L 54 L Respiratory Rate 24 52 H 15 Respiratory Effort / Characteristics Respiratory Depth Respiratory Pattern Blood Pressure Blood Pressure Mean Blood Pressure Position Pulse Oximetry 98 99 Oxygen Delivery Method Nasal Cannula Nasal Cannula Nasal Cannula Oxygen Flow Rate 2 2 2 Sepsis Recent Fever Within 48 Hours Sepsis New/Unexplained Change in Mental Status Sepsis Action Taken by Nursing 10/09/21 21:20 10/09/21 21:30 10/09/21 21:32 Temperature Temperature Source Pulse Rate 62 73 65 Pulse Rate from SpO2 Sensor Respiratory Rate 21 16 18 Respiratory Effort / Characteristics Respiratory Depth Respiratory Pattern Blood Pressure 171/124 H Blood Pressure Mean 139 Blood Pressure Position Pulse Oximetry Oxygen Delivery Method Nasal Cannula Nasal Cannula Nasal Cannula Oxygen Flow Rate 2 2 2 Sepsis Recent Fever Within 48 Hours Sepsis New/Unexplained Change in Mental Status Sepsis Action Taken by Nursing 10/09/21 21:40 10/09/21 21:50 10/09/21 22:00 Temperature Temperature Source Pulse Rate 60 60 Pulse Rate from SpO2 Sensor 60 Respiratory Rate 21 19 21 Respiratory Effort / Characteristics Respiratory Depth Respiratory Pattern Blood Pressure Blood Pressure Mean Blood Pressure Position Pulse Oximetry 95 Oxygen Delivery Method Nasal Cannula Nasal Cannula Nasal Cannula Oxygen Flow Rate 2 2 2 Sepsis Recent Fever Within 48 Hours Sepsis New/Unexplained Change in Mental Status Sepsis Action Taken by Nursing 10/09/21 22:01 10/09/21 22:10 10/09/21 22:20 Temperature Temperature Source Pulse Rate 51 L 61 58 L Pulse Rate from SpO2 Sensor Respiratory Rate 22 19 17 Respiratory Effort / Characteristics Respiratory Depth Respiratory Pattern Blood Pressure 191/71 H Blood Pressure Mean 111 Blood Pressure Position Pulse Oximetry Oxygen Delivery Method Nasal Cannula Nasal Cannula Nasal Cannula Oxygen Flow Rate 2 2 2 Sepsis Recent Fever Within 48 Hours Sepsis New/Unexplained Change in Mental Status Sepsis Action Taken by Nursing 10/09/21 22:30 10/09/21 22:40 Temperature Temperature Source Pulse Rate Pulse Rate from SpO2 Sensor Respiratory Rate 17 33 H Respiratory Effort / Characteristics Respiratory Depth Respiratory Pattern Blood Pressure Blood Pressure Mean Blood Pressure Position Pulse Oximetry Oxygen Delivery Method Nasal Cannula Nasal Cannula Oxygen Flow Rate 2 2 Sepsis Recent Fever Within 48 Hours Sepsis New/Unexplained Change in Mental Status Sepsis Action Taken by Nursing Laboratory Data Attestation: I reviewed the patient's lab results. Result diagrams: 10/09/21 20:38 10/09/21 20:38 Lab Results 10/09/21 10/09/21 10/09/21 Range/Units 20:38 20:38 20:38 WBC 10.10 (4.8-10.8) K/uL RBC 4.21 (4.2-5.4) M/uL Hgb 12.3 (12.0-16.0) g/dL Hct 39.7 (37-47) % MCV 94.3 (80-100) fL MCH 29.2 (25-34) pg MCHC 31.0 L (32-36) g/dL RDW Std Deviation 68.2 H (36.4-46.3) fL RDW Coeff of Shama 19.6 H (11.5-14.5) % Plt Count 254 (130-400) K/uL MPV 10.0 (7.4-10.4) fL Immature Gran % (Auto) 0.3 % Neut % (Auto) 68.5 % Lymph % (Auto) 21.6 % [place] % (Auto) 5.0 % Eos % (Auto) 4.4 % Baso % (Auto) 0.2 % Neut # (Auto) 6.92 H (1.4-6.5) K/uL Lymph # (Auto) 2.18 (1.2-3.4) K/uL [place] # (Auto) 0.51 (0.11-0.59) K/uL Eos # (Auto) 0.44 (0-0.5) K/uL Baso # (Auto) 0.02 (0-0.2) K/uL Immature Gran # (Auto) 0.03 H (0.00-0.02) K/uL ESR 69 H (0-30) mm/hr PT (9.0-12.0) Seconds INR (0.9-1.1) Sodium 137 (136-145) mmol/L Potassium 5.5 H (3.5-5.1) mmol/L Chloride 105 (98-107) mmol/L Carbon Dioxide 29 (21-32) mmol/L Anion Gap 4.0 (3-11) BUN 27 H (7-18) mg/dl Creatinine 1.67 H (0.6-1.2) mg/dl Est Cr Clr Drug Dosing 29.5 ml/min Est GFR ( Amer) 32.2 ml/min Est GFR (Non-Af Amer) 27.8 ml/min BUN/Creatinine Ratio 16.3 (10-20) Glucose 115 H (70-99) mg/dl Calcium 9.5 (8.5-10.1) mg/dl Phosphorus 3.5 (2.5-4.9) mg/dl Magnesium 1.9 (1.8-2.4) mg/dl Total Bilirubin 0.2 (0.2-1) mg/dl AST 15 (15-37) U/L ALT 15 (12-78) Alkaline Phosphatase 110 (45-117) U/L Troponin I < 0.015 (0-0.045) ng/ml C-Reactive Protein 0.90 H (0-0.29) mg/dl Total Protein 7.5 (6.4-8.2) gm/dl Albumin 3.5 (3.4-5.0) gm/dl Globulin 4.0 (2.5-4.0) gm/dl Albumin/Globulin Ratio 0.9 (0.9-2) Lipase 256 (73-393) U/L Specimen Hemolysis Urine Color Urine Appearance (Clear) Urine pH (4.5-7.5) Ur Specific [place] (1.000-1.030) Urine Protein (Negative) Urine Glucose (UA) (Negative) Urine Ketones (Negative) Urine Blood (Negative) Urine Nitrite (Negative) Urine Bilirubin (Negative) Urine Urobilinogen (Negative) Ur Leukocyte Esterase (Negative) Urine WBC (Auto) (0-5) /hpf Urine RBC (Auto) (0-4) /hpf U Hyaline Cast (Auto) (0-5) /lpf U Epithel Cells (Auto) (0-5) /lpf Urine Bacteria (Auto) (Negative) SARS-CoV-2, RNA, NAAT (NEGATIVE) 10/09/21 10/09/21 10/09/21 Range/Units 20:38 20:38 20:38 WBC (4.8-10.8) K/uL RBC (4.2-5.4) M/uL Hgb (12.0-16.0) g/dL Hct (37-47) % MCV (80-100) fL MCH (25-34) pg MCHC (32-36) g/dL RDW Std Deviation (36.4-46.3) fL RDW Coeff of Shama (11.5-14.5) % Plt Count (130-400) K/uL MPV (7.4-10.4) fL Immature Gran % (Auto) % Neut % (Auto) % Lymph % (Auto) % [place] % (Auto) % Eos % (Auto) % Baso % (Auto) % Neut # (Auto) (1.4-6.5) K/uL Lymph # (Auto) (1.2-3.4) K/uL [place] # (Auto) (0.11-0.59) K/uL Eos # (Auto) (0-0.5) K/uL Baso # (Auto) (0-0.2) K/uL Immature Gran # (Auto) (0.00-0.02) K/uL ESR (0-30) mm/hr PT 9.7 (9.0-12.0) Seconds INR 1.0 (0.9-1.1) Sodium (136-145) mmol/L Potassium (3.5-5.1) mmol/L Chloride (98-107) mmol/L Carbon Dioxide (21-32) mmol/L Anion Gap (3-11) BUN (7-18) mg/dl Creatinine (0.6-1.2) mg/dl Est Cr Clr Drug Dosing ml/min Est GFR ( Amer) ml/min Est GFR (Non-Af Amer) ml/min BUN/Creatinine Ratio (10-20) Glucose (70-99) mg/dl Calcium (8.5-10.1) mg/dl Phosphorus (2.5-4.9) mg/dl Magnesium (1.8-2.4) mg/dl Total Bilirubin (0.2-1) mg/dl AST (15-37) U/L ALT (12-78) Alkaline Phosphatase (45-117) U/L Troponin I (0-0.045) ng/ml C-Reactive Protein (0-0.29) mg/dl Total Protein (6.4-8.2) gm/dl Albumin (3.4-5.0) gm/dl Globulin (2.5-4.0) gm/dl Albumin/Globulin Ratio (0.9-2) Lipase (73-393) U/L Specimen Hemolysis Urine Color Yellow Urine Appearance Cloudy A (Clear) Urine pH 7.5 (4.5-7.5) Ur Specific [place] 1.009 (1.000-1.030) Urine Protein Trace H (Negative) Urine Glucose (UA) Negative (Negative) Urine Ketones Negative (Negative) Urine Blood Trace H (Negative) Urine Nitrite Negative (Negative) Urine Bilirubin Negative (Negative) Urine Urobilinogen Negative (Negative) Ur Leukocyte Esterase 3+ H (Negative) Urine WBC (Auto) >30 H (0-5) /hpf Urine RBC (Auto) 0-4 (0-4) /hpf U Hyaline Cast (Auto) 1-5 (0-5) /lpf U Epithel Cells (Auto) >30 H (0-5) /lpf Urine Bacteria (Auto) 1+ H (Negative) SARS-CoV-2, RNA, NAAT NEGATIVE (NEGATIVE) Administered Medications Discontinued Medications Albuterol (Albut/Ipratrop 3mg/0.5mg Neb 3 Ml Vial) 3 ml NEB NOW STA; Protocol Stop: 10/09/21 23:05 Last Admin: 10/09/21 23:41 Dose: 3 ml Documented by: [id number] Furosemide (Furosemide Inj 20 Mg/2 Ml Vial) 20 mg IV ONE ONE Stop: 10/09/21 21:56 Last Admin: 10/09/21 23:41 Dose: 20 mg Documented by: [id number] Furosemide (Furosemide 40 Mg/4 Ml Vial) Confirm Administered Dose 40 mg IV .STK- MED ONE Stop: 10/09/21 23:02 Last Admin: 10/09/21 23:41 Dose: Not Given Documented by: [id number] Ceftriaxone Sodium (Rocephin) 2,000 mg in 70 mls @ 140 mls/hr IV NOW STA Stop: 10/09/21 22:23 Last Infusion: 10/10/21 01:35 Dose: 0 mls/hr Documented by: [id number] Admin: 10/09/21 23:41 Dose: 140 mls/hr Documented by: [id number] Methylprednisolone (Methylprednisolone 125 Mg/2 Ml Vial) 60 mg IV NOW STA Stop: 10/09/21 23:43 Last Admin: 10/10/21 01:34 Dose: 60 mg Documented by: [id number] Imaging Data Radiologist's Impression: Head CT 10/09/21 20:14 CT head/brain wo con CLINICAL HISTORY: Confusion Technique: Contiguous axial CT images of the head were acquired from the base of the skull to the vertex without intravenous contrast administration. Images were viewed in brain, subdural and bone windows. Automated dose lowering techniques and/or adjustment according to patient size were utilized for this exam. Comparison: Comparison is made to CT head 12/10/2015 Findings: The ventricles, basal cisterns, and cerebral sulci are normal. There is no acute intracranial hemorrhage or evidence of acute territorial infarction. Neither mass effect, shift of the midline structures, nor abnormal extra-axial fluid collections are shown. Imaged portions of the paranasal sinuses and mastoid air cells are clear. The orbits appear normal. There are no acute fractures of the calvaria or scalp swelling. Impression: No acute intracranial hemorrhage, no evidence of acute territorial infarction or other acute intracranial disease process. ACT 112: Negative or not required by law. Electronically signed by: Moises Gregorio M.D. 10/09/2021 9:30 PM Chest X-Ray 10/09/21 20:15 XR chest 1V portable CLINICAL HISTORY: Atypical chest pain TECHNIQUE: Single frontal radiograph of the chest was obtained. Comparison: Comparison is made to chest one view 07/05/2021 FINDINGS: No lines and tubes are seen. The cardiomediastinal silhouette is normal. The lungs are clear. No evidence of pleural effusion or pneumothorax. IMPRESSION: No acute chest disease. ACT 112: Negative or not required by law. Electronically signed by: Moises Gregorio M.D. 10/09/2021 9:33 PM Discharge Plan Visit Data Chief Complaint: Illness Stated Complaint: AMS, Near Syncope ED Provider: Cale Miller Discharge Problem: Near syncope, Urinary tract infection, Vision changes, Hypervolemia Discharge Instructions Interventions: ED Discharge Assessment Last Done: 10/10/21 01:55 Discharge Problem: Urinary tract infection Qualifiers: Urinary tract infection type: site unspecified Hematuria presence: without hematuria Qualified Code(s): N39.0 - Urinary tract infection, site not specified Hypervolemia Qualifiers: Hypervolemia type: unspecified Qualified Code(s): E87.70 - Fluid overload, unspecified
[2021-10-09] MEDS ORDERED: cefTRIAXone SODIUM 2,000 MG/70 ML BAG IV STA (21:54)
[2021-10-09 21:55] LABS: Bilirubin,Total 0.2 mg/dl (0.2-1)
[2021-10-09] MEDS ORDERED: FUROSEMIDE INJ 20 MG/2 ML VIAL IV ONE (21:55)
--- NOTE | 2021-10-09 23:00 | History & Physical Report ---
Date of Service October 09, 2021 Assessment & Plan (1) Headache: Plan: 85F sent from [facility] due to near syncope and confusion. PMH CHF, asthma, COPD on 2L home O2, CKD III, HLD, HTN, JOSEFINA, Peripheral Neuropathy. (1) Headache: -patient complains of headache ongoing since last night in left temporal area with pain on light touch, difficulty sitting upright -per ED note also complained of transient vision loss, running her walker into [place] -Patient unable to track gaze to the right, limited tracking up and down -WBC 10.1, ESR 69, CRP 0.9 -gave 60mg IV solu-medrol in ED ordered daily solumedrol 60mg IV -CXR: no acute chest disease -CT head: No acute intracranial hemorrhage, no evidence of acute territorial infarction or other acute intracranial disease process. -ordered MRI brain, MRA head -ordered carotid doppler ()Confusion -patient not oriented to place or time -Per [facility], she usually has good mentation oriented AAOx3 independent in her room full range of vision -currently DNR/intubation, per POA they have not discussed code status but she believes patient would not want intubation or resuscitative measures ()GERD -continue pantoprazole (2) (HFpEF) heart failure with preserved ejection fraction: -EKG sinus bradycardia -Echo 07/24 EF 60-65% -hold lisinopril given elevated potassium 5.5 -hold metoprolol given bradycardia -continue lasix, amlodipine, ASA (3) CKD (chronic kidney disease), stage III: -BUN 27 near baseline -Creat 1.67 slightly above baseline 1.3-1.5 ()Mood Disorder -continue quetiapine (4) Asthma: -PRN Duoneb (5) Hyperlipidemia: -ordered lipid panel -continue atorvastatin (6) Type 2 diabetes mellitus: -hold metformin given slightly elevated creat -hold glimepride -glycemic consult placed (7) Chronic respiratory failure with hypoxia and hypercapnia: -chronically 2L NC O2 -100% O2 on 2L NC -Daily home inhalers -PRN duoneb FENa: heart healthy Code Status: DNR, intubate DVT PPX: SCDs, ASA, hold further anticoagulation for now incase hemorrhagic conversion PT/OT: ordered Dispo: med/tele Coco Mcmillan Do PGY 1, FCM (2) (HFpEF) heart failure with preserved ejection fraction: (3) CKD (chronic kidney disease), stage III: (4) Asthma: (5) Hyperlipidemia: (6) Type 2 diabetes mellitus: (7) Chronic respiratory failure with hypoxia and hypercapnia: History of Present Illness Chief Complaint: Headache Primary Care Provider: Renee Arias MD 85F sent from [facility] due to near syncope and confusion. PMH CHF, asthma, COPD on 2L home O2, CKD III, HLD, HTN, JOSEFINA, Peripheral Neuropathy. Patient seen at bedside, pleasant calm cooperative comfortable, states she is in [facility], January 08 1991, she appears to have some word finding difficulty. Patient states she started getting left temporal headache last night, started listing to the side had difficulty straightening up, started feeling sick, nauseous fever headache, denies vomitting. Patient states increased pain on palpation of her left buddhist. Patient also does not track her eyes to the right, limited tracking up and down, eye tracking to left intact. Patient denies vision loss. Per [facility], at 4pm today patient was lethargic, dizzy almost fell x2, had triple vision, running into the wall on the left, confused, has no memory of the event. Per POA her neice patient usually AAOx3 with full range of vision, her current status is very usual for her. Patient walks with walker at baseline, wears diaper. Has baseline diarrhea constipation. She denies recent falls. Patient would like some water, states she has some chest congestion. She does not want to use a CPAP again, states it was uncomfortable. She has a pessary for her urinary incontinence. Allergies Allergy/AdvReac Type Severity Reaction Status Date / Time coconut Allergy Intermediate Rash Verified 10/09/21 20:37 peanut Allergy Intermediate Rash Verified 10/09/21 20:37 blueberry Allergy Unknown Verified 10/09/21 20:37 raspberry Allergy Unknown Verified 10/09/21 20:37 oxycodone [From OxyContin] AdvReac Mild hallucinati Verified 10/08/21 10:13 on Home Medications Medication Instructions Recorded Confirmed Type tramadol 50 mg tablet 50 mg PO Q8H PRN #90 tab 10/03/20 10/09/21 Rx amlodipine 5 mg tablet 5 mg PO DAILY #90 tab 02/04/21 10/09/21 Rx metformin 500 mg tablet 500 mg PO BID #180 tab 03/06/21 10/09/21 Rx acetaminophen 325 mg tablet 650 mg PO Q4H PRN #120 tab MDD 3g 05/26/21 10/09/21 Rx or 9 tabs atorvastatin 10 mg tablet 10 mg PO HS #90 tab 05/26/21 10/09/21 Rx cyanocobalamin (vitamin B-12) 1,000 mcg IM MONTHLY #1 ml 05/26/21 10/09/21 Rx 1,000 mcg/mL injection solution glimepiride 1 mg tablet 1 mg PO QAM #90 tab 05/26/21 10/09/21 Rx lisinopril 20 mg tablet 20 mg PO BID #180 tab 05/26/21 10/09/21 Rx metoprolol tartrate 50 mg tablet 50 mg PO BID #180 tab 05/26/21 10/09/21 Rx montelukast 10 mg tablet 10 mg PO HS #90 tab 05/26/21 10/09/21 Rx pantoprazole 40 mg tablet,delayed 40 mg PO DAILY #90 tab 05/26/21 10/09/21 Rx release quetiapine 50 mg tablet 50 mg PO HS #90 tab 05/26/21 10/09/21 Rx albuterol sulfate 90 mcg/actuation 2 puff INHALATION Q6H PRN #8.5 g 06/27/21 10/09/21 Rx aerosol inhaler fluticasone 100 mcg-salmeterol 50 1 inh INHALATION BID #180 ea 06/27/21 10/09/21 Rx mcg/dose blistr powdr for inhalation (Advair Diskus) cholecalciferol (vitamin D3) 125 125 mcg PO DAILY #90 tab 07/01/21 10/09/21 Rx mcg (5,000 unit) tablet polysaccharide iron complex 150 mg 150 mg PO DAILY #90 cap 07/01/21 10/09/21 Rx iron capsule (Ferrex) Oxygen Home #1 ea 07/13/21 10/09/21 Rx aspirin 81 mg tablet,delayed 81 mg PO DAILY #90 tab 10/01/21 10/09/21 Rx release (Aspirin Low Dose) acetaminophen 325 mg tablet 650 mg PO HS 10/09/21 10/09/21 History calcium carbonate 600 mg-vitamin 1 tab PO DAILY 10/09/21 10/09/21 History D3 5 mcg (200 unit) tablet (Calcium 600 + D(3)) dextran 70-hypromellose eye drops 1 drp OPHTHALMIC (EYE) DAILY PRN 10/09/21 10/09/21 History in a dropperette (Artificial Tears (PF)) furosemide 20 mg tablet (Lasix) 20 mg PO DAILY 10/09/21 10/09/21 History guaifenesin 600 mg tablet, 600 mg PO Q12H PRN 10/09/21 10/09/21 History extended release 12 hr (Mucinex) methyl salicylate 15 %-menthol 10 1 applic TOPICAL BID PRN 10/09/21 10/09/21 History % topical cream nystatin 100,000 unit/gram topical 1 appln TOP TID PRN 10/09/21 10/09/21 History powder (Nystop) sennosides 8.6 mg tablet (Senokot) 8.6 mg PO DAILY PRN 10/09/21 10/09/21 History Past Med/Surg History Medical History Acute congestive heart failure Anemia Asthma Benign essential tremor Chronic cerebral ischemia Chronic low back pain Chronic renal insufficiency CKD (chronic kidney disease), stage III Hyperlipidemia Hypertension Mood disorder Obstructive sleep apnea s/p UPPP surgery Osteoarthritis Osteopenia Peripheral neuropathy Prolapse of female pelvic organs Type 2 diabetes mellitus Vitamin B12 deficiency Vitamin D deficiency Surgical History H/O wisdom tooth extraction History of knee replacement R and L History of tonsillectomy and adenoidectomy S/P appendectomy S/P cholecystectomy S/P uvulopalatopharyngoplasty S/P vaginal hysterectomy unsure if ovaries were left Family History (Updated 10/10/21 @ 09:51 by Miguel Ángel Markham MD) Sister Liver cancer Mother , in her 50s of heart issues Heart disease Father , in his 50s of cancer Cancer Denies family history of Ovarian cancer Breast cancer Colorectal cancer Uterine cancer Social History Smoking Status: Never smoker Second Hand Exposure: No; Do You Dip or Chew Tobacco: No; Hx Alcohol Use: No Hx Substance Use: No Preferred Language: Croatian Communication Ability: Effective Visual Impairment: No Limitations Hearing Ability: Normal Lamp Inspector Required: No Beliefs That Will Affect Care: None marital status: / Current Living Situation: Skilled Nursing Current Living Situation Comment: lives [facility] the [facility] current occupational status: retired 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 How many Children do You have: 2 Feels Safe at Home: Yes Safety Concerns: Feels Safe At This Time caffeine: No Physical Activity Frequency: Does not Exercise Seatbelt Use: always Assistive Devices: Glasses, Oxygen - Continuous and Walker Review of Systems Review of Systems: Fever, nausea Negative chills Negative headache dizziness Negative chest pain palpitations SOB Negative vomitting diarrhea constipation Negative numbness tingling rash Physical Exam Constitutional: + obese, + frail appearing, cooperative and + cushingoid Eyes: PERRL, conjunctivae normal, anicteric sclerae Neck: trachea midline, no thyromegaly Respiratory: normal respiratory effort Auscultation: + wheezes Cardiovascular: Rate/Rhythm: + bradycardic Heart Sounds: normal S1 and normal S2 trace b/l edema in LE Chest (Breasts): Chest: normal inspection of chest Gastrointestinal (Abdomen): normal bowel sounds, soft, nontender, no hepatosplenomegaly Musculoskeletal: no cyanosis or clubbing, extremities motor strength 5/5 Skin: no rashes, warm and dry Neurologic: eyes do not track to the right beyond midline. Limited tracking up and down. Eye tracking to the left intact Pain on light touch of left temporal area Psychiatric: Orientation: alert, oriented to person and cooperative; + not oriented to place and + not oriented to time Results & Data Results & Data ([facility]) Vital Signs (Past 12 Hours) Vital Signs Temp Pulse Resp BP Pulse Ox 10/09/21 20:00 36.6 C 51 L 20 199/106 H 100 Laboratory Results 10/09/21 10/09/21 10/09/21 Range/Units 20:38 20:38 20:38 WBC (4.8-10.8) K/uL RBC (4.2-5.4) M/uL Hgb (12.0-16.0) g/dL Hct (37-47) % MCV (80-100) fL MCH (25-34) pg MCHC (32-36) g/dL RDW Std Deviation (36.4-46.3) fL RDW Coeff of Shama (11.5-14.5) % Plt Count (130-400) K/uL MPV (7.4-10.4) fL Immature Gran % (Auto) % Neut % (Auto) % Lymph % (Auto) % [place] % (Auto) % Eos % (Auto) % Baso % (Auto) % Neut # (Auto) (1.4-6.5) K/uL Lymph # (Auto) (1.2-3.4) K/uL [place] # (Auto) (0.11-0.59) K/uL Eos # (Auto) (0-0.5) K/uL Baso # (Auto) (0-0.2) K/uL Immature Gran # (Auto) (0.00-0.02) K/uL ESR (0-30) mm/hr PT 9.7 (9.0-12.0) Seconds INR 1.0 (0.9-1.1) Sodium (136-145) mmol/L Potassium (3.5-5.1) mmol/L Chloride (98-107) mmol/L Carbon Dioxide (21-32) mmol/L Anion Gap (3-11) BUN (7-18) mg/dl Creatinine (0.6-1.2) mg/dl Est Cr Clr Drug Dosing ml/min Est GFR ( Amer) ml/min Est GFR (Non-Af Amer) ml/min BUN/Creatinine Ratio (10-20) Glucose (70-99) mg/dl Calcium (8.5-10.1) mg/dl Phosphorus (2.5-4.9) mg/dl Magnesium (1.8-2.4) mg/dl Total Bilirubin (0.2-1) mg/dl AST (15-37) U/L ALT (12-78) Alkaline Phosphatase (45-117) U/L Troponin I (0-0.045) ng/ml C-Reactive Protein (0-0.29) mg/dl Total Protein (6.4-8.2) gm/dl Albumin (3.4-5.0) gm/dl Globulin (2.5-4.0) gm/dl Albumin/Globulin Ratio (0.9-2) Lipase (73-393) U/L Specimen Hemolysis Urine Color Yellow Urine Appearance Cloudy A (Clear) Urine pH 7.5 (4.5-7.5) Ur Specific [place] 1.009 (1.000-1.030) Urine Protein Trace H (Negative) Urine Glucose (UA) Negative (Negative) Urine Ketones Negative (Negative) Urine Blood Trace H (Negative) Urine Nitrite Negative (Negative) Urine Bilirubin Negative (Negative) Urine Urobilinogen Negative (Negative) Ur Leukocyte Esterase 3+ H (Negative) Urine WBC (Auto) >30 H (0-5) /hpf Urine RBC (Auto) 0-4 (0-4) /hpf U Hyaline Cast (Auto) 1-5 (0-5) /lpf U Epithel Cells (Auto) >30 H (0-5) /lpf Urine Bacteria (Auto) 1+ H (Negative) SARS-CoV-2, RNA, NAAT NEGATIVE (NEGATIVE) 10/09/21 10/09/21 10/09/21 Range/Units 20:38 20:38 20:38 WBC 10.10 (4.8-10.8) K/uL RBC 4.21 (4.2-5.4) M/uL Hgb 12.3 (12.0-16.0) g/dL Hct 39.7 (37-47) % MCV 94.3 (80-100) fL MCH 29.2 (25-34) pg MCHC 31.0 L (32-36) g/dL RDW Std Deviation 68.2 H (36.4-46.3) fL RDW Coeff of Shama 19.6 H (11.5-14.5) % Plt Count 254 (130-400) K/uL MPV 10.0 (7.4-10.4) fL Immature Gran % (Auto) 0.3 % Neut % (Auto) 68.5 % Lymph % (Auto) 21.6 % [place] % (Auto) 5.0 % Eos % (Auto) 4.4 % Baso % (Auto) 0.2 % Neut # (Auto) 6.92 H (1.4-6.5) K/uL Lymph # (Auto) 2.18 (1.2-3.4) K/uL [place] # (Auto) 0.51 (0.11-0.59) K/uL Eos # (Auto) 0.44 (0-0.5) K/uL Baso # (Auto) 0.02 (0-0.2) K/uL Immature Gran # (Auto) 0.03 H (0.00-0.02) K/uL ESR 69 H (0-30) mm/hr PT (9.0-12.0) Seconds INR (0.9-1.1) Sodium 137 (136-145) mmol/L Potassium 5.5 H (3.5-5.1) mmol/L Chloride 105 (98-107) mmol/L Carbon Dioxide 29 (21-32) mmol/L Anion Gap 4.0 (3-11) BUN 27 H (7-18) mg/dl Creatinine 1.67 H (0.6-1.2) mg/dl Est Cr Clr Drug Dosing 29.5 ml/min Est GFR ( Amer) 32.2 ml/min Est GFR (Non-Af Amer) 27.8 ml/min BUN/Creatinine Ratio 16.3 (10-20) Glucose 115 H (70-99) mg/dl Calcium 9.5 (8.5-10.1) mg/dl Phosphorus 3.5 (2.5-4.9) mg/dl Magnesium 1.9 (1.8-2.4) mg/dl Total Bilirubin 0.2 (0.2-1) mg/dl AST 15 (15-37) U/L ALT 15 (12-78) Alkaline Phosphatase 110 (45-117) U/L Troponin I < 0.015 (0-0.045) ng/ml C-Reactive Protein 0.90 H (0-0.29) mg/dl Total Protein 7.5 (6.4-8.2) gm/dl Albumin 3.5 (3.4-5.0) gm/dl Globulin 4.0 (2.5-4.0) gm/dl Albumin/Globulin Ratio 0.9 (0.9-2) Lipase 256 (73-393) U/L Specimen Hemolysis Urine Color Urine Appearance (Clear) Urine pH (4.5-7.5) Ur Specific [place] (1.000-1.030) Urine Protein (Negative) Urine Glucose (UA) (Negative) Urine Ketones (Negative) Urine Blood (Negative) Urine Nitrite (Negative) Urine Bilirubin (Negative) Urine Urobilinogen (Negative) Ur Leukocyte Esterase (Negative) Urine WBC (Auto) (0-5) /hpf Urine RBC (Auto) (0-4) /hpf U Hyaline Cast (Auto) (0-5) /lpf U Epithel Cells (Auto) (0-5) /lpf Urine Bacteria (Auto) (Negative) SARS-CoV-2, RNA, NAAT (NEGATIVE) Diagnostic Findings Head CT 10/09/21 20:14 CT head/brain wo con CLINICAL HISTORY: Confusion Technique: Contiguous axial CT images of the head were acquired from the base of the skull to the vertex without intravenous contrast administration. Images were viewed in brain, subdural and bone windows. Automated dose lowering techniques and/or adjustment according to patient size were utilized for this exam. Comparison: Comparison is made to CT head 12/10/2015 Findings: The ventricles, basal cisterns, and cerebral sulci are normal. There is no acute intracranial hemorrhage or evidence of acute territorial infarction. Neither mass effect, shift of the midline structures, nor abnormal extra-axial fluid collections are shown. Imaged portions of the paranasal sinuses and mastoid air cells are clear. The orbits appear normal. There are no acute fractures of the calvaria or scalp swelling. Impression: No acute intracranial hemorrhage, no evidence of acute territorial infarction or other acute intracranial disease process. ACT 112: Negative or not required by law. Electronically signed by: Moises Gregorio M.D. 10/09/2021 9:30 PM Chest X-Ray 10/09/21 20:15 XR chest 1V portable CLINICAL HISTORY: Atypical chest pain TECHNIQUE: Single frontal radiograph of the chest was obtained. Comparison: Comparison is made to chest one view 07/05/2021 FINDINGS: No lines and tubes are seen. The cardiomediastinal silhouette is normal. The lungs are clear. No evidence of pleural effusion or pneumothorax. IMPRESSION: No acute chest disease. ACT 112: Negative or not required by law. Electronically signed by: Moises Gregorio M.D. 10/09/2021 9:33 PM Code Status & VTE Plan VTE Prophylaxis Plan VTE Prophylaxis will be ordered: Yes Supervising Physician Co-Signing Physician Notes Attending addendum: I have physically seen this patient, have supervised the medical residents activities, and agree with the H&P unless as otherwise noted. Assessment and Plan: Headache/confusion/near syncope/left temporal pain/transient visual loss- Methylprednisolone 60 mg IV given in ED, and then daily CT of head negative Order MRI of brain, MRA of head and carotid Dopplers. No CT or MRI dye due to borderline renal function Principal concern is that of giant cell arteritis versus CVA Further recommendations as results of imaging return Remaining orders and notations as noted Resident Activity Tracking Resident Involvement: Resident Care Provided Care Provided: Adult [facility]
[2021-10-09] MEDS ORDERED: FUROSEMIDE 40 MG/4 ML VIAL IV ONE (23:01)
[2021-10-09] MEDS ORDERED: ALBUT/IPRATROP 3MG/0.5MG NEB 3 ML VIAL NEB STA (23:04)
[2021-10-09] MEDS ORDERED: DEXTROSE 5% IV STA (23:29)
[2021-10-09] MEDS ORDERED: METHYLPREDNISOLONE IV STA (23:29)
[2021-10-09] MEDS ORDERED: methylPREDNISolone 125 MG/2 ML VIAL IV STA (23:42)
[2021-10-10] MEDS ORDERED: PHARMACY GLYCEMIC MGMT CONSULT PRN (01:45)
[2021-10-10] MEDS ORDERED: traMADol HCL 50 MG TABLET PO PRN (01:45)
[2021-10-10] MEDS ORDERED: NITROGLYCERIN SL 0.4 MG/TAB TAB SL PRN (01:45)
[2021-10-10] MEDS ORDERED: guaiFENesin 600 MG TABCR PO PRN (01:45)
[2021-10-10] MEDS ORDERED: POLYETHYLENE (MIRALAX) 17 GM PACK PO PRN (01:45)
[2021-10-10] MEDS ORDERED: SENNA 8.6 MG TAB PO PRN (01:45)
[2021-10-10] MEDS ORDERED: ALBUTEROL HFA 8 GM INHALER INH PRN (01:45)
[2021-10-10] MEDS ORDERED: METHYL SALICYLATE MENTHOL TOP PRN (01:45)
[2021-10-10] MEDS ORDERED: ARTIFICIAL TEARS OP PRN (02:27)
[2021-10-10] MEDS ORDERED: DEXTROSE 50% 50 ML SYRINGE IV PRN (04:00)
[2021-10-10] MEDS ORDERED: GLUCOSE 10 TABS/TUBE PO PRN (04:00)
[2021-10-10] MEDS ORDERED: GLUCOSE 40% GEL 15 GM TUBE PO PRN (04:00)
[2021-10-10] MEDS ORDERED: GLUCAGON FOR INJ 1 MG VIAL IM PRN (04:00)
[2021-10-10] MEDS ORDERED: ONDANSETRON INJ 2 MG/ML 2 ML VIAL ONE (04:49)
[2021-10-10 05:05] LABS: Basophils # (auto) 0.02 K/uL (0-0.2); Basophils % (auto) 0.1 %; Eosinophils # (auto) 0.06 K/uL (0-0.5); Eosinophils % (auto) 0.4 %; Hematocrit (blood only) 44.1 % (37-47); Hemoglobin 13.6 g/dL (12.0-16.0); Immature Granulocytes # (auto) 0.03 K/uL (0.00-0.02); Immature Granulocytes % (auto) 0.2 %; Lymphocytes # (auto) 1.94 K/uL (1.2-3.4); Lymphocytes % (auto) 13.8 %; Mean Corpuscular Hemoglobin 28.3 pg (25-34); Mean Corpuscular Hgb Conc 30.8 g/dL (32-36); Mean Corpuscular Volume 91.9 fL (80-100); Mean Platelet Volume 10.2 fL (7.4-10.4); Monocytes # (auto) 0.15 K/uL (0.11-0.59); Monocytes % (auto) 1.1 %; Neutrophils # (auto) 11.87 K/uL (1.4-6.5); Neutrophils % (auto) 84.4 %; Platelet Count 233 K/uL (130-400); RDW Coefficient of Variation 19.1 % (11.5-14.5); RDW Standard Deviation 65.1 fL (36.4-46.3); White Blood Count 14.07 K/uL (4.8-10.8)
[2021-10-10] MEDS: ACETAMINOPHEN 325 MG TAB PO PRN ×3 (05:24→20:38)
[2021-10-10] MEDS: INSULIN ASPART PER UNIT SC SCH ×5 (05:29→20:44)
[2021-10-10 05:44] LABS: BUN Creatinine Ratio 15.7 (10-20); Calcium 9.9 mg/dl (8.5-10.1); Creatinine Clr Calc Pharmacy 30.8 ml/min; Est GFR (African American) 33.9 ml/min; Est GFR (Non-African American) 29.3 ml/min
--- NOTE | 2021-10-10 07:13 | Ultrasound Report ---
ULTRASOUND OF THE CAROTID ARTERIES CLINICAL HISTORY: Amaurosis fugax. COMPARISON STUDY: No priors. TECHNIQUE: Real-time, grayscale, and color Doppler sonography of the carotid arteries is performed. I mages are reviewed in the transverse and longitudinal planes. FINDINGS: Blood pressures were not assessed due to IV sites. The carotid arteries are patent bilaterally and demonstrate antegrade flow. There is no significant a therosclerotic plaque identified. Normal doppler arterial waveforms are seen throughout. Velocity nick surements are listed below. Common carotid peak systolic velocity (cm/sec): RIGHT: 34 LEFT: 63 ICA proximal peak systolic velocity (cm/sec): RIGHT: 50 LEFT: 45 ICA mid peak systolic velocity (cm/sec): RIGHT: 56 LEFT: 61 ICA distal peak systolic velocity (cm/sec): RIGHT: 60 to LEFT: 75 ICA/CC peak systolic ratio: RIGHT: 1.8 LEFT: 1.2 Antegrade flow was shown in the vertebral arteries. The external carotid arteries are patent. IMPRESSION: 1. There is no sonographic evidence of hemodynamically significant stenosis in the right or left thompson tid arterial system. 2. Antegrade flow is shown in the vertebral arteries. ACT 112: Negative or not required by law. Electronically signed by: Italo Whelan M.D. 10/10/2021 7:12 AM
--- NOTE | 2021-10-10 07:34 | Magnetic Resonance Report ---
MR ANGIOGRAM OF THE BRAIN CLINICAL HISTORY: Stroke. COMPARISON STUDY: MRI of the brain performed concurrently on 10/10/2021. TECHNIQUE: 3-D [id number] MR angiography of the intracranial circulation is performed. 3-D tumble views are created and assessed. IV contrast was not administered for this examination. FINDINGS: The internal carotid arteries are widely patent bilaterally, as are the anterior and middl e cerebral arteries. The vertebrobasilar system and posterior cerebral arteries are widely patent. Th e left vertebral artery is dominant. The right vertebral artery is diminutive. There is no aneurysm, high-grade stenosis, or focal vessel cutoff seen throughout the intracranial circulation. IMPRESSION: Unremarkable MR angiogram of the brain. ACT 112: Negative or not required by law. Electronically signed by: Italo Whelan M.D. 10/10/2021 7:32 AM
--- NOTE | 2021-10-10 08:09 | Hospitalist Progress Note ---
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 Continued confusion with reported normal mental status at [facility]. no reported symptoms prior to events on October 09. Neurology reports multiple acute embolic type strokes in multiple vascular distributions, largest in the left except pedal head region with right homonymous phill anopsia, left cerebellar stroke with reported balance and confusion as noted. Additional evaluation to determine source with following orders echo completed, stable see full report Started on heparin protocol, continue aspirin 81 mg Consultation to speech, occupational and physical therapy blood pressure control WALDEMAR with bubble study ordered to rule out PFO /valvular abnormalities Blood culture and urine cultures pending Neuro checks discontinue methylprednisolone discontinue tramadol with encephalopathy, acetaminophen written for p.r.n. pain Continue Lipitor Five -7 known cardiac history, no complaints at this time continue home medications and blood pressure control continue telemetry Daily weight 8. Diabetes type 2 continue insulin A1c 6.6, reasonable control 9. CKD stage 3 stable creatinine for the patient Continue daily creatinine 10. DVT prophylaxis 11. hypertension Increase of amlodipine to 7.5 mg to improve blood pressure control Continue Lasix 20 mg daily 12. asthma with underlying chronic respiratory failure with hypoxia continue home regimen Continue 2 L nasal cannula oxygen 13. GERD continue Protonix Admission and Anticipated Discharge Date Admission Date: October 09, 2021 Subjective pleasantly confused, unable to obtain reliable history Describes no pain Nursing described no concerns overnight Review of Systems Constitutional: no fever and no chills Respiratory: no cough, no chest congestion, no dyspnea and no wheezing Cardiovascular: no chest pain, no palpitations and no edema Gastrointestinal: no abdominal pain, no heartburn, no nausea, no vomiting and no change in bowel habits Physical Exam Physical Exam: Constitutional: pleasantly confused, awake and alert to person Respiratory: Effort normal, CTA B/L CV: RRR, no murmur, minedema Abdomen: normal bowel sounds, soft, nontender, Neurologic: see neurology consult Results & Data Results & Data ([facility]) Vital Signs (Past 12 Hours) Vital Signs Temp Pulse Pulse Resp BP BP BP 10/10/21 07:43 76 10/10/21 05:31 36.7 C 74 20 178/82 H 10/10/21 05:30 64 10/10/21 01:57 10/10/21 01:55 63 16 166/62 H 10/10/21 01:30 65 18 166/69 H 10/09/21 23:42 55 L 18 190/83 H 10/09/21 22:50 20 10/09/21 22:40 33 H 10/09/21 22:30 17 10/09/21 22:20 58 L 17 10/09/21 22:10 61 19 10/09/21 22:01 51 L 22 191/71 H 10/09/21 22:00 60 21 10/09/21 21:50 60 19 10/09/21 21:40 21 10/09/21 21:32 65 18 171/124 H 10/09/21 21:30 73 16 10/09/21 21:20 62 21 10/09/21 21:10 52 L 15 10/09/21 21:04 58 L 52 H 10/09/21 20:40 54 L 24 10/09/21 20:37 57 L 19 209/88 H 10/09/21 20:30 54 L 24 10/09/21 20:20 57 L 18 10/09/21 20:10 58 L 16 Pulse Ox Pulse Ox 10/10/21 07:43 10/10/21 05:31 94 10/10/21 05:30 10/10/21 01:57 96 10/10/21 01:55 98 10/10/21 01:30 96 10/09/21 23:42 98 10/09/21 22:50 10/09/21 22:40 10/09/21 22:30 10/09/21 22:20 10/09/21 22:10 10/09/21 22:01 10/09/21 22:00 10/09/21 21:50 95 10/09/21 21:40 10/09/21 21:32 10/09/21 21:30 10/09/21 21:20 10/09/21 21:10 99 10/09/21 21:04 10/09/21 20:40 98 10/09/21 20:37 10/09/21 20:30 10/09/21 20:20 10/09/21 20:10 94 Laboratory Results Laboratory Results - last 24 hr 10/09/21 10/09/21 10/09/21 20:38 20:38 20:38 WBC 10.10 RBC 4.21 Hgb 12.3 Hct 39.7 MCV 94.3 MCH 29.2 MCHC 31.0 L RDW Std Deviation 68.2 H RDW Coeff of Shama 19.6 H Plt Count 254 MPV 10.0 Immature Gran % (Auto) 0.3 Neut % (Auto) 68.5 Lymph % (Auto) 21.6 [place] % (Auto) 5.0 Eos % (Auto) 4.4 Baso % (Auto) 0.2 Neut # (Auto) 6.92 H Lymph # (Auto) 2.18 [place] # (Auto) 0.51 Eos # (Auto) 0.44 Baso # (Auto) 0.02 Immature Gran # (Auto) 0.03 H ESR 69 H PT INR APTT PTT Ratio Sodium 137 Potassium 5.5 H Chloride 105 Carbon Dioxide 29 Anion Gap 4.0 BUN 27 H Creatinine 1.67 H Est Cr Clr Drug Dosing 29.5 Est GFR ( Amer) 32.2 Est GFR (Non-Af Amer) 27.8 BUN/Creatinine Ratio 16.3 Glucose 115 H POC Glucose Estimat Average Glucose Hemoglobin A1c Calcium 9.5 Phosphorus 3.5 Magnesium 1.9 Total Bilirubin 0.2 AST 15 ALT 15 Alkaline Phosphatase 110 Troponin I < 0.015 C-Reactive Protein 0.90 H Total Protein 7.5 Albumin 3.5 Globulin 4.0 Albumin/Globulin Ratio 0.9 Triglycerides Cholesterol LDL Cholesterol, Calc VLDL Cholesterol, Calc HDL Cholesterol Cholesterol/HDL Ratio Lipase 256 Specimen Hemolysis Urine Color Urine Appearance Urine pH Ur Specific [place] Urine Protein Urine Glucose (UA) Urine Ketones Urine Blood Urine Nitrite Urine Bilirubin Urine Urobilinogen Ur Leukocyte Esterase Urine WBC (Auto) Urine RBC (Auto) U Hyaline Cast (Auto) U Epithel Cells (Auto) Urine Bacteria (Auto) SARS-CoV-2, RNA, NAAT 10/09/21 10/09/21 10/09/21 20:38 20:38 20:38 WBC RBC Hgb Hct MCV MCH MCHC RDW Std Deviation RDW Coeff of Shama Plt Count MPV Immature Gran % (Auto) Neut % (Auto) Lymph % (Auto) [place] % (Auto) Eos % (Auto) Baso % (Auto) Neut # (Auto) Lymph # (Auto) [place] # (Auto) Eos # (Auto) Baso # (Auto) Immature Gran # (Auto) ESR PT 9.7 INR 1.0 APTT PTT Ratio Sodium Potassium Chloride Carbon Dioxide Anion Gap BUN Creatinine Est Cr Clr Drug Dosing Est GFR ( Amer) Est GFR (Non-Af Amer) BUN/Creatinine Ratio Glucose POC Glucose Estimat Average Glucose Hemoglobin A1c Calcium Phosphorus Magnesium Total Bilirubin AST ALT Alkaline Phosphatase Troponin I C-Reactive Protein Total Protein Albumin Globulin Albumin/Globulin Ratio Triglycerides Cholesterol LDL Cholesterol, Calc VLDL Cholesterol, Calc HDL Cholesterol Cholesterol/HDL Ratio Lipase Specimen Hemolysis Urine Color Yellow Urine Appearance Cloudy A Urine pH 7.5 Ur Specific [place] 1.009 Urine Protein Trace H Urine Glucose (UA) Negative Urine Ketones Negative Urine Blood Trace H Urine Nitrite Negative Urine Bilirubin Negative Urine Urobilinogen Negative Ur Leukocyte Esterase 3+ H Urine WBC (Auto) >30 H Urine RBC (Auto) 0-4 U Hyaline Cast (Auto) 1-5 U Epithel Cells (Auto) >30 H Urine Bacteria (Auto) 1+ H SARS-CoV-2, RNA, NAAT NEGATIVE 10/10/21 10/10/21 10/10/21 04:52 04:52 04:52 WBC 14.07 H RBC 4.80 Hgb 13.6 Hct 44.1 MCV 91.9 MCH 28.3 MCHC 30.8 L RDW Std Deviation 65.1 H RDW Coeff of Shama 19.1 H Plt Count 233 MPV 10.2 Immature Gran % (Auto) 0.2 Neut % (Auto) 84.4 Lymph % (Auto) 13.8 [place] % (Auto) 1.1 Eos % (Auto) 0.4 Baso % (Auto) 0.1 Neut # (Auto) 11.87 H Lymph # (Auto) 1.94 [place] # (Auto) 0.15 Eos # (Auto) 0.06 Baso # (Auto) 0.02 Immature Gran # (Auto) 0.03 H ESR PT INR APTT PTT Ratio Sodium 135 L Potassium Chloride 102 Carbon Dioxide 24 Anion Gap 9.0 BUN 25 H Creatinine 1.60 H Est Cr Clr Drug Dosing 30.8 Est GFR ( Amer) 33.9 Est GFR (Non-Af Amer) 29.3 BUN/Creatinine Ratio 15.7 Glucose 187 H POC Glucose Estimat Average Glucose 143 Hemoglobin A1c 6.6 H Calcium 9.9 Phosphorus Magnesium Total Bilirubin AST ALT Alkaline Phosphatase Troponin I C-Reactive Protein Total Protein Albumin Globulin Albumin/Globulin Ratio Triglycerides 85 Cholesterol 183 LDL Cholesterol, Calc 72 VLDL Cholesterol, Calc 17 HDL Cholesterol 94 Cholesterol/HDL Ratio 2 Lipase Specimen Hemolysis Urine Color Urine Appearance Urine pH Ur Specific [place] Urine Protein Urine Glucose (UA) Urine Ketones Urine Blood Urine Nitrite Urine Bilirubin Urine Urobilinogen Ur Leukocyte Esterase Urine WBC (Auto) Urine RBC (Auto) U Hyaline Cast (Auto) U Epithel Cells (Auto) Urine Bacteria (Auto) SARS-CoV-2, RNA, NAAT 10/10/21 10/10/21 10/10/21 05:22 06:51 07:45 WBC RBC Hgb Hct MCV MCH MCHC RDW Std Deviation RDW Coeff of Shama Plt Count MPV Immature Gran % (Auto) Neut % (Auto) Lymph % (Auto) [place] % (Auto) Eos % (Auto) Baso % (Auto) Neut # (Auto) Lymph # (Auto) [place] # (Auto) Eos # (Auto) Baso # (Auto) Immature Gran # (Auto) ESR PT INR APTT PTT Ratio Sodium Potassium 4.8 Chloride Carbon Dioxide Anion Gap BUN Creatinine Est Cr Clr Drug Dosing Est GFR ( Amer) Est GFR (Non-Af Amer) BUN/Creatinine Ratio Glucose POC Glucose 188 H 187 H Estimat Average Glucose Hemoglobin A1c Calcium Phosphorus Magnesium Total Bilirubin AST ALT Alkaline Phosphatase Troponin I C-Reactive Protein Total Protein Albumin Globulin Albumin/Globulin Ratio Triglycerides Cholesterol LDL Cholesterol, Calc VLDL Cholesterol, Calc HDL Cholesterol Cholesterol/HDL Ratio Lipase Specimen Hemolysis Urine Color Urine Appearance Urine pH Ur Specific [place] Urine Protein Urine Glucose (UA) Urine Ketones Urine Blood Urine Nitrite Urine Bilirubin Urine Urobilinogen Ur Leukocyte Esterase Urine WBC (Auto) Urine RBC (Auto) U Hyaline Cast (Auto) U Epithel Cells (Auto) Urine Bacteria (Auto) SARS-CoV-2, RNA, NAAT 10/10/21 10/10/21 10/10/21 11:40 16:48 17:02 WBC RBC Hgb Hct MCV MCH MCHC RDW Std Deviation RDW Coeff of Shama Plt Count MPV Immature Gran % (Auto) Neut % (Auto) Lymph % (Auto) [place] % (Auto) Eos % (Auto) Baso % (Auto) Neut # (Auto) Lymph # (Auto) [place] # (Auto) Eos # (Auto) Baso # (Auto) Immature Gran # (Auto) ESR PT 9.9 INR 1.0 APTT 24.1 PTT Ratio 0.9 Sodium Potassium Chloride Carbon Dioxide Anion Gap BUN Creatinine Est Cr Clr Drug Dosing Est GFR ( Amer) Est GFR (Non-Af Amer) BUN/Creatinine Ratio Glucose POC Glucose 177 H 153 H Estimat Average Glucose Hemoglobin A1c Calcium Phosphorus Magnesium Total Bilirubin AST ALT Alkaline Phosphatase Troponin I C-Reactive Protein Total Protein Albumin Globulin Albumin/Globulin Ratio Triglycerides Cholesterol LDL Cholesterol, Calc VLDL Cholesterol, Calc HDL Cholesterol Cholesterol/HDL Ratio Lipase Specimen Hemolysis Urine Color Urine Appearance Urine pH Ur Specific [place] Urine Protein Urine Glucose (UA) Urine Ketones Urine Blood Urine Nitrite Urine Bilirubin Urine Urobilinogen Ur Leukocyte Esterase Urine WBC (Auto) Urine RBC (Auto) U Hyaline Cast (Auto) U Epithel Cells (Auto) Urine Bacteria (Auto) SARS-CoV-2, RNA, NAAT 10/10/21 17:02 WBC 11.57 H RBC 4.45 Hgb 12.6 Hct 40.6 MCV 91.2 MCH 28.3 MCHC 31.0 L RDW Std Deviation 65.2 H RDW Coeff of Shama 19.4 H Plt Count 191 MPV 10.1 Immature Gran % (Auto) 0.2 Neut % (Auto) 78.7 Lymph % (Auto) 14.0 [place] % (Auto) 7.0 Eos % (Auto) 0.0 Baso % (Auto) 0.1 Neut # (Auto) 9.11 H Lymph # (Auto) 1.62 [place] # (Auto) 0.81 H Eos # (Auto) 0.00 Baso # (Auto) 0.01 Immature Gran # (Auto) 0.02 ESR PT INR APTT PTT Ratio Sodium Potassium Chloride Carbon Dioxide Anion Gap BUN Creatinine Est Cr Clr Drug Dosing Est GFR ( Amer) Est GFR (Non-Af Amer) BUN/Creatinine Ratio Glucose POC Glucose Estimat Average Glucose Hemoglobin A1c Calcium Phosphorus Magnesium Total Bilirubin AST ALT Alkaline Phosphatase Troponin I C-Reactive Protein Total Protein Albumin Globulin Albumin/Globulin Ratio Triglycerides Cholesterol LDL Cholesterol, Calc VLDL Cholesterol, Calc HDL Cholesterol Cholesterol/HDL Ratio Lipase Specimen Hemolysis Urine Color Urine Appearance Urine pH Ur Specific [place] Urine Protein Urine Glucose (UA) Urine Ketones Urine Blood Urine Nitrite Urine Bilirubin Urine Urobilinogen Ur Leukocyte Esterase Urine WBC (Auto) Urine RBC (Auto) U Hyaline Cast (Auto) U Epithel Cells (Auto) Urine Bacteria (Auto) SARS-CoV-2, RNA, NAAT Diagnostic Findings Laboratory Results - last 24 hr 10/09/21 10/09/21 10/09/21 20:38 20:38 20:38 WBC 10.10 RBC 4.21 Hgb 12.3 Hct 39.7 MCV 94.3 MCH 29.2 MCHC 31.0 L RDW Std Deviation 68.2 H RDW Coeff of Shama 19.6 H Plt Count 254 MPV 10.0 Immature Gran % (Auto) 0.3 Neut % (Auto) 68.5 Lymph % (Auto) 21.6 [place] % (Auto) 5.0 Eos % (Auto) 4.4 Baso % (Auto) 0.2 Neut # (Auto) 6.92 H Lymph # (Auto) 2.18 [place] # (Auto) 0.51 Eos # (Auto) 0.44 Baso # (Auto) 0.02 Immature Gran # (Auto) 0.03 H ESR 69 H PT INR APTT PTT Ratio Sodium 137 Potassium 5.5 H Chloride 105 Carbon Dioxide 29 Anion Gap 4.0 BUN 27 H Creatinine 1.67 H Est Cr Clr Drug Dosing 29.5 Est GFR ( Amer) 32.2 Est GFR (Non-Af Amer) 27.8 BUN/Creatinine Ratio 16.3 Glucose 115 H POC Glucose Estimat Average Glucose Hemoglobin A1c Calcium 9.5 Phosphorus 3.5 Magnesium 1.9 Total Bilirubin 0.2 AST 15 ALT 15 Alkaline Phosphatase 110 Troponin I < 0.015 C-Reactive Protein 0.90 H Total Protein 7.5 Albumin 3.5 Globulin 4.0 Albumin/Globulin Ratio 0.9 Triglycerides Cholesterol LDL Cholesterol, Calc VLDL Cholesterol, Calc HDL Cholesterol Cholesterol/HDL Ratio Lipase 256 Specimen Hemolysis Urine Color Urine Appearance Urine pH Ur Specific [place] Urine Protein Urine Glucose (UA) Urine Ketones Urine Blood Urine Nitrite Urine Bilirubin Urine Urobilinogen Ur Leukocyte Esterase Urine WBC (Auto) Urine RBC (Auto) U Hyaline Cast (Auto) U Epithel Cells (Auto) Urine Bacteria (Auto) SARS-CoV-2, RNA, NAAT 10/09/21 10/09/21 10/09/21 20:38 20:38 20:38 WBC RBC Hgb Hct MCV MCH MCHC RDW Std Deviation RDW Coeff of Shama Plt Count MPV Immature Gran % (Auto) Neut % (Auto) Lymph % (Auto) [place] % (Auto) Eos % (Auto) Baso % (Auto) Neut # (Auto) Lymph # (Auto) [place] # (Auto) Eos # (Auto) Baso # (Auto) Immature Gran # (Auto) ESR PT 9.7 INR 1.0 APTT PTT Ratio Sodium Potassium Chloride Carbon Dioxide Anion Gap BUN Creatinine Est Cr Clr Drug Dosing Est GFR ( Amer) Est GFR (Non-Af Amer) BUN/Creatinine Ratio Glucose POC Glucose Estimat Average Glucose Hemoglobin A1c Calcium Phosphorus Magnesium Total Bilirubin AST ALT Alkaline Phosphatase Troponin I C-Reactive Protein Total Protein Albumin Globulin Albumin/Globulin Ratio Triglycerides Cholesterol LDL Cholesterol, Calc VLDL Cholesterol, Calc HDL Cholesterol Cholesterol/HDL Ratio Lipase Specimen Hemolysis Urine Color Yellow Urine Appearance Cloudy A Urine pH 7.5 Ur Specific [place] 1.009 Urine Protein Trace H Urine Glucose (UA) Negative Urine Ketones Negative Urine Blood Trace H Urine Nitrite Negative Urine Bilirubin Negative Urine Urobilinogen Negative Ur Leukocyte Esterase 3+ H Urine WBC (Auto) >30 H Urine RBC (Auto) 0-4 U Hyaline Cast (Auto) 1-5 U Epithel Cells (Auto) >30 H Urine Bacteria (Auto) 1+ H SARS-CoV-2, RNA, NAAT NEGATIVE 10/10/21 10/10/21 10/10/21 04:52 04:52 04:52 WBC 14.07 H RBC 4.80 Hgb 13.6 Hct 44.1 MCV 91.9 MCH 28.3 MCHC 30.8 L RDW Std Deviation 65.1 H RDW Coeff of Shama 19.1 H Plt Count 233 MPV 10.2 Immature Gran % (Auto) 0.2 Neut % (Auto) 84.4 Lymph % (Auto) 13.8 [place] % (Auto) 1.1 Eos % (Auto) 0.4 Baso % (Auto) 0.1 Neut # (Auto) 11.87 H Lymph # (Auto) 1.94 [place] # (Auto) 0.15 Eos # (Auto) 0.06 Baso # (Auto) 0.02 Immature Gran # (Auto) 0.03 H ESR PT INR APTT PTT Ratio Sodium 135 L Potassium Chloride 102 Carbon Dioxide 24 Anion Gap 9.0 BUN 25 H Creatinine 1.60 H Est Cr Clr Drug Dosing 30.8 Est GFR ( Amer) 33.9 Est GFR (Non-Af Amer) 29.3 BUN/Creatinine Ratio 15.7 Glucose 187 H POC Glucose Estimat Average Glucose 143 Hemoglobin A1c 6.6 H Calcium 9.9 Phosphorus Magnesium Total Bilirubin AST ALT Alkaline Phosphatase Troponin I C-Reactive Protein Total Protein Albumin Globulin Albumin/Globulin Ratio Triglycerides 85 Cholesterol 183 LDL Cholesterol, Calc 72 VLDL Cholesterol, Calc 17 HDL Cholesterol 94 Cholesterol/HDL Ratio 2 Lipase Specimen Hemolysis Urine Color Urine Appearance Urine pH Ur Specific [place] Urine Protein Urine Glucose (UA) Urine Ketones Urine Blood Urine Nitrite Urine Bilirubin Urine Urobilinogen Ur Leukocyte Esterase Urine WBC (Auto) Urine RBC (Auto) U Hyaline Cast (Auto) U Epithel Cells (Auto) Urine Bacteria (Auto) SARS-CoV-2, RNA, NAAT 10/10/21 10/10/21 10/10/21 05:22 06:51 07:45 WBC RBC Hgb Hct MCV MCH MCHC RDW Std Deviation RDW Coeff of Shama Plt Count MPV Immature Gran % (Auto) Neut % (Auto) Lymph % (Auto) [place] % (Auto) Eos % (Auto) Baso % (Auto) Neut # (Auto) Lymph # (Auto) [place] # (Auto) Eos # (Auto) Baso # (Auto) Immature Gran # (Auto) ESR PT INR APTT PTT Ratio Sodium Potassium 4.8 Chloride Carbon Dioxide Anion Gap BUN Creatinine Est Cr Clr Drug Dosing Est GFR ( Amer) Est GFR (Non-Af Amer) BUN/Creatinine Ratio Glucose POC Glucose 188 H 187 H Estimat Average Glucose Hemoglobin A1c Calcium Phosphorus Magnesium Total Bilirubin AST ALT Alkaline Phosphatase Troponin I C-Reactive Protein Total Protein Albumin Globulin Albumin/Globulin Ratio Triglycerides Cholesterol LDL Cholesterol, Calc VLDL Cholesterol, Calc HDL Cholesterol Cholesterol/HDL Ratio Lipase Specimen Hemolysis Urine Color Urine Appearance Urine pH Ur Specific [place] Urine Protein Urine Glucose (UA) Urine Ketones Urine Blood Urine Nitrite Urine Bilirubin Urine Urobilinogen Ur Leukocyte Esterase Urine WBC (Auto) Urine RBC (Auto) U Hyaline Cast (Auto) U Epithel Cells (Auto) Urine Bacteria (Auto) SARS-CoV-2, RNA, NAAT 10/10/21 10/10/21 10/10/21 11:40 16:48 17:02 WBC RBC Hgb Hct MCV MCH MCHC RDW Std Deviation RDW Coeff of Shama Plt Count MPV Immature Gran % (Auto) Neut % (Auto) Lymph % (Auto) [place] % (Auto) Eos % (Auto) Baso % (Auto) Neut # (Auto) Lymph # (Auto) [place] # (Auto) Eos # (Auto) Baso # (Auto) Immature Gran # (Auto) ESR PT 9.9 INR 1.0 APTT 24.1 PTT Ratio 0.9 Sodium Potassium Chloride Carbon Dioxide Anion Gap BUN Creatinine Est Cr Clr Drug Dosing Est GFR ( Amer) Est GFR (Non-Af Amer) BUN/Creatinine Ratio Glucose POC Glucose 177 H 153 H Estimat Average Glucose Hemoglobin A1c Calcium Phosphorus Magnesium Total Bilirubin AST ALT Alkaline Phosphatase Troponin I C-Reactive Protein Total Protein Albumin Globulin Albumin/Globulin Ratio Triglycerides Cholesterol LDL Cholesterol, Calc VLDL Cholesterol, Calc HDL Cholesterol Cholesterol/HDL Ratio Lipase Specimen Hemolysis Urine Color Urine Appearance Urine pH Ur Specific [place] Urine Protein Urine Glucose (UA) Urine Ketones Urine Blood Urine Nitrite Urine Bilirubin Urine Urobilinogen Ur Leukocyte Esterase Urine WBC (Auto) Urine RBC (Auto) U Hyaline Cast (Auto) U Epithel Cells (Auto) Urine Bacteria (Auto) SARS-CoV-2, RNA, NAAT 10/10/21 17:02 WBC 11.57 H RBC 4.45 Hgb 12.6 Hct 40.6 MCV 91.2 MCH 28.3 MCHC 31.0 L RDW Std Deviation 65.2 H RDW Coeff of Shama 19.4 H Plt Count 191 MPV 10.1 Immature Gran % (Auto) 0.2 Neut % (Auto) 78.7 Lymph % (Auto) 14.0 [place] % (Auto) 7.0 Eos % (Auto) 0.0 Baso % (Auto) 0.1 Neut # (Auto) 9.11 H Lymph # (Auto) 1.62 [place] # (Auto) 0.81 H Eos # (Auto) 0.00 Baso # (Auto) 0.01 Immature Gran # (Auto) 0.02 ESR PT INR APTT PTT Ratio Sodium Potassium Chloride Carbon Dioxide Anion Gap BUN Creatinine Est Cr Clr Drug Dosing Est GFR ( Amer) Est GFR (Non-Af Amer) BUN/Creatinine Ratio Glucose POC Glucose Estimat Average Glucose Hemoglobin A1c Calcium Phosphorus Magnesium Total Bilirubin AST ALT Alkaline Phosphatase Troponin I C-Reactive Protein Total Protein Albumin Globulin Albumin/Globulin Ratio Triglycerides Cholesterol LDL Cholesterol, Calc VLDL Cholesterol, Calc HDL Cholesterol Cholesterol/HDL Ratio Lipase Specimen Hemolysis Urine Color Urine Appearance Urine pH Ur Specific [place] Urine Protein Urine Glucose (UA) Urine Ketones Urine Blood Urine Nitrite Urine Bilirubin Urine Urobilinogen Ur Leukocyte Esterase Urine WBC (Auto) Urine RBC (Auto) U Hyaline Cast (Auto) U Epithel Cells (Auto) Urine Bacteria (Auto) SARS-CoV-2, RNA, NAAT PG Care Time/CCT Total # of Minutes Spent Total Time Spent with Patient: Total time spent is greater than 50% in coordination of care (as documented) at patient's floor/unit and/or counseling patient: Coding Level of Care Code 85215 Subseq Hosp Care Lvl 3 Diagnoses Acute encephalopathy G93.40 Acute embolic stroke I63.9 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
--- NOTE | 2021-10-10 08:12 | Magnetic Resonance Report ---
MR brain wo con CLINICAL HISTORY: No right eye gaze near-syncopal episode 10/09/2021 TECHNIQUE: Multiplanar and multisequence MR images of the brain were obtained without intravenous con trast. Comparison: Comparison is made to CT head on 03/23/2022 law MRA head 10/10/2021, and MR brain 07/09/2021 FINDINGS: Restricted diffusion is seen in the left CONDENSER OPERATOR territory, involving the left occipital lobe left thalam us with mild associated T2 hyperintensity. Additional punctate infarcts are in the pre and postcentra l gyri, right occipital lobe, and left cerebellum. Foci of T2 and FLAIR hyperintensity are noted in t he paraventricular areas consistent with chronic small vessel ischemic disease. Ex vacuo ventriculome ann and sulcal enlargement is noted compatible with diffuse encephalomalacia. No extra axial fluid c ollections are seen. There are no masses, mass effect, or midline shift. The corpus callosum, pituit chris gland, and cerebellar tonsils appear grossly unremarkable. Tiny susceptibility artifacts are seen in the bilateral cortex likely reflecting remote hemorrhages. Flow voids of the major intracranial arterial vessels are identified. Mucosal thickening/retention cy sts are seen in the sphenoid sinuses. IMPRESSION: Multiple acute infarcts, predominantly involving the left CONDENSER OPERATOR territory. No evidence of hemorrhagic t ransformation. ACT 112: Negative or not required by law. Electronically signed by: Moises Gregorio M.D. 10/10/2021 8:11 AM
[2021-10-10] MEDS ORDERED: INSULIN GLARGINE SOLOSTAR 100 UNITS/ML 3 ML PEN SC ONE (09:00)
[2021-10-10] MEDS ORDERED: DEXTROSE 5% IV SCH (09:00)
[2021-10-10] MEDS ORDERED: ENOXAPARIN INJ 40 MG/0.4 ML SYR SQ SCH (09:00)
[2021-10-10] MEDS ORDERED: METHYLPREDNISOLONE IV SCH (09:00)
[2021-10-10] MEDS: FLUTICASONE/VILANTEROL 100/25MCG 14 PUFFS/INHALER INH SCH (09:06)
[2021-10-10] MEDS: IRON POLYSACCHARIDE COMPLEX 150 MG CAPSULE PO SCH (09:07)
[2021-10-10] MEDS: amLODIPine BESYLATE 5 MG TAB PO SCH (09:07)
[2021-10-10] MEDS: ASPIRIN 81 MG ECTAB PO SCH (09:07)
[2021-10-10] MEDS: PANTOprazole 40 MG TAB PO SCH (09:07)
[2021-10-10] MEDS: CHOLECALCIFEROL 5,000 UNITS 125 MCG TAB PO SCH (09:07)
[2021-10-10] MEDS: CALCIUM 600MG + VIT D 400 IU TAB PO SCH (09:08)
[2021-10-10] MEDS: FUROSEMIDE 20 MG TAB PO SCH (09:08)
--- NOTE | 2021-10-10 09:42 | Neurology Consultation ---
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 She had a left cerebellar stroke which could explain her balance and the multiple bilateral strokes could explain other symptoms including confusion. The patient had a markedly elevated blood pressure which could explain her confusion as well ( hypertensive encephalopathy ). In addition she has an elevated white count, elevated sed rate, and CRP. Even though she had a temporal headache yesterday she only had a headache for 1 day and this is not consistent with a temporal arteritis ( which is a subacute/chronic inflammatory condition ). I would be more concerned about a urinary tract infection or other source of infection. Recommendations new 1. Control blood pressure as you are doing, aiming for a mean arterial pressure of 100. 2. The patient would be a statin candidate but I would avoid high doses given her age and lipid levels. 3. consider anticoagulation and 81 milligram aspirin tablet daily. 4. Increase activity as able with physical therapy, occupational therapy, and speech therapy consult. 5. Echocardiogram. 6. I see no need for steroids at this time overall, I spent a total of 60 minutes on this case including review of records, review of MRI films, direct evaluation the patient bedside, and discussion of the case with the patient and RN at bedside, and Dr. Muller including differential diagnosis and treatment options. History of Present Illness Reason for Consultation: patient is an 85-year-old, who I was asked to see at the request of Dr. Mcmillan, for neurologic consultation regarding acute confusion and vision loss. Requesting Physician: Dr. Mcmillan Attending Physician: Gaetano Guerrero DO History of Present Illness this patient has a history of chronic respiratory failure with hypoxia and hypercapnia in the past. She has obstructive sleep apnea and chronic kidney disease. She also has history of pulmonary hypertension , diabetes, hypertension, mood disorder, and congestive heart failure. She was at the [facility]. She does not have a history of gait disturbance, mental status issues/confusion or headaches. Apparently she was having some confusion yesterday and some dizziness with standing, walking into the wall with her walker. She had some near syncope and then lost vision in her left eye for 20-30 minutes. This was in the afternoon of October 09. She had some complaints of blurry vision and left temporofrontal headache pain. She arrived to the emergency room October 09 at 19:55, with a temperature 36.6, pulse 55 and regular, respiratory rate 17, blood pressure 199/106, and O2 saturation 100 percent. She had no focal signs on examination but she was somewhat confused. She had a little bit of left temporal headache in the ER. CBC and Chem profile were unremarkable although the BUN and creatinine were elevated. CRP was elevated at 0.9 and sed rate was 69. white count today was 14. CT scan of the head was unremarkable and chest x-ray were unremarkable. Urine was cloudy with cells and cultures are pending. Blood cultures are pending also. She has been afebrile. Triglycerides are 85 and total cholesterol 183. hemoglobin A1c is pending. MR angiography of the head and carotid ultrasound studies were unremarkable. I have spoken to Dr. Whelan regarding these and they are without significant stenosis. MRI of the brain reveals multiple scattered acute strokes with the largest being in the left occipital head region but also left cerebellar, right occipital, left thalamus and high right parietal head regions. All of this is consistent with embolic phenomenon and I have reviewed these films with Dr. Whelan. Currently she complains of some posterior neck pain at the occipital cervical junction on the right into the left side. She does not have any temporal or other headache. She feels that her vision is not good. She denies weakness or numbness of the arms or legs. Allergies Allergy/AdvReac Type Severity Reaction Status Date / Time coconut Allergy Intermediate Rash Verified 10/09/21 20:37 peanut Allergy Intermediate Rash Verified 10/09/21 20:37 blueberry Allergy Unknown Verified 10/09/21 20:37 raspberry Allergy Unknown Verified 10/09/21 20:37 oxycodone [From OxyContin] AdvReac Mild hallucinati Verified 10/08/21 10:13 on Home Medications Medication Instructions Recorded Confirmed Type tramadol 50 mg tablet 50 mg PO Q8H PRN #90 tab 10/03/20 10/09/21 Rx amlodipine 5 mg tablet 5 mg PO DAILY #90 tab 02/04/21 10/09/21 Rx metformin 500 mg tablet 500 mg PO BID #180 tab 03/06/21 10/09/21 Rx acetaminophen 325 mg tablet 650 mg PO Q4H PRN #120 tab MDD 3g 05/26/21 10/09/21 Rx or 9 tabs atorvastatin 10 mg tablet 10 mg PO HS #90 tab 05/26/21 10/09/21 Rx cyanocobalamin (vitamin B-12) 1,000 mcg IM MONTHLY #1 ml 05/26/21 10/09/21 Rx 1,000 mcg/mL injection solution glimepiride 1 mg tablet 1 mg PO QAM #90 tab 05/26/21 10/09/21 Rx lisinopril 20 mg tablet 20 mg PO BID #180 tab 05/26/21 10/09/21 Rx metoprolol tartrate 50 mg tablet 50 mg PO BID #180 tab 05/26/21 10/09/21 Rx montelukast 10 mg tablet 10 mg PO HS #90 tab 05/26/21 10/09/21 Rx pantoprazole 40 mg tablet,delayed 40 mg PO DAILY #90 tab 05/26/21 10/09/21 Rx release quetiapine 50 mg tablet 50 mg PO HS #90 tab 05/26/21 10/09/21 Rx albuterol sulfate 90 mcg/actuation 2 puff INHALATION Q6H PRN #8.5 g 06/27/21 10/09/21 Rx aerosol inhaler fluticasone 100 mcg-salmeterol 50 1 inh INHALATION BID #180 ea 06/27/21 10/09/21 Rx mcg/dose blistr powdr for inhalation (Advair Diskus) cholecalciferol (vitamin D3) 125 125 mcg PO DAILY #90 tab 07/01/21 10/09/21 Rx mcg (5,000 unit) tablet polysaccharide iron complex 150 mg 150 mg PO DAILY #90 cap 07/01/21 10/09/21 Rx iron capsule (Ferrex) Oxygen Home #1 ea 07/13/21 10/09/21 Rx aspirin 81 mg tablet,delayed 81 mg PO DAILY #90 tab 10/01/21 10/09/21 Rx release (Aspirin Low Dose) acetaminophen 325 mg tablet 650 mg PO HS 10/09/21 10/09/21 History calcium carbonate 600 mg-vitamin 1 tab PO DAILY 10/09/21 10/09/21 History D3 5 mcg (200 unit) tablet (Calcium 600 + D(3)) dextran 70-hypromellose eye drops 1 drp OPHTHALMIC (EYE) DAILY PRN 10/09/21 10/09/21 History in a dropperette (Artificial Tears (PF)) furosemide 20 mg tablet (Lasix) 20 mg PO DAILY 10/09/21 10/09/21 History guaifenesin 600 mg tablet, 600 mg PO Q12H PRN 10/09/21 10/09/21 History extended release 12 hr (Mucinex) methyl salicylate 15 %-menthol 10 1 applic TOPICAL BID PRN 10/09/21 10/09/21 History % topical cream nystatin 100,000 unit/gram topical 1 appln TOP TID PRN 10/09/21 10/09/21 History powder (Nystop) sennosides 8.6 mg tablet (Senokot) 8.6 mg PO DAILY PRN 10/09/21 10/09/21 History Patient History Medical History Acute congestive heart failure Anemia Asthma Benign essential tremor Chronic cerebral ischemia Chronic low back pain Chronic renal insufficiency CKD (chronic kidney disease), stage III Hyperlipidemia Hypertension Mood disorder Obstructive sleep apnea s/p UPPP surgery Osteoarthritis Osteopenia Peripheral neuropathy Prolapse of female pelvic organs Type 2 diabetes mellitus Vitamin B12 deficiency Vitamin D deficiency Surgical History H/O wisdom tooth extraction History of knee replacement R and L History of tonsillectomy and adenoidectomy S/P appendectomy S/P cholecystectomy S/P uvulopalatopharyngoplasty S/P vaginal hysterectomy unsure if ovaries were left Family History (Updated 10/10/21 @ 09:51 by Miguel Ángel Markham MD) Sister Liver cancer Mother , in her 50s of heart issues Heart disease Father , in his 50s of cancer Cancer Denies family history of Ovarian cancer Breast cancer Colorectal cancer Uterine cancer Social History Smoking Status: Never smoker Second Hand Exposure: No; Do You Dip or Chew Tobacco: No; Hx Alcohol Use: No Hx Substance Use: No Preferred Language: Japanese Communication Ability: Effective Visual Impairment: No Limitations Hearing Ability: Normal Digital Traffic Coordinator Required: No Beliefs That Will Affect Care: None marital status: / Current Living Situation: [facility] Current Living Situation Comment: lives at the [place] current occupational status: retired 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 How many Children do You have: 2 Feels Safe at Home: Yes Safety Concerns: Feels Safe At This Time caffeine: No Physical Activity Frequency: Does not Exercise Seatbelt Use: always Assistive Devices: Denture - Upper, Denture - Lower, Glasses, Oxygen - Continuous and Walker Review of Systems Constitutional: no fever, no fatigue and no weakness Eyes: + worsening vision; no diplopia and no eye pain Ear, Nose, Mouth, Throat: no ear pain, no tinnitus, no hearing loss, no dizziness, no snoring, no hoarseness and no dysphagia Respiratory: no cough and no dyspnea Cardiovascular: no chest pain, no palpitations and no lightheadedness Gastrointestinal: no abdominal pain, no nausea and no vomiting Genitourinary: no dysuria, no urinary frequency and no urinary incontinence Musculoskeletal: + neck pain; no back pain, no radicular pain, no joint pain and no myalgia Integumentary: no rash and no lesions Neurologic: no gait abnormality, no localized weakness, no generalized weakness, no tingling, no numbness, no tremor(s), no abnormal movements, no headache(s), no abnormal speech, no confusion and no memory loss Psychiatric: no depression, no irritability, no anxiety, no difficulty concentrating, no confusion and no hallucinations Endocrine: no fatigue and no flushing Hematologic / Lymphatic: no easy bleeding and no easy bruising Allergy / Immunological: no urticaria and no problem reported Exam (Neuro) Physical Exam: The patient is ambidextrous writing with her right hand in eating with her left hand The patient is awake, alert, and attentive. Speech is normal without any aphasia or dysarthria. The patient can name objects, repeat phrases, and has normal spontaneous speech. memory is poor and she was not oriented to month, year, date, day, where she was, or her age. She was pleasant and cooperative otherwise and was in a good mood. Pupils are 4 mm bilaterally and reactive to light. Extraocular eye muscles are intact without nystagmus , although she prefers left gaze. she has a dense right homonymous hemianopsia with no vision off to the right in either eye. There are no deficits to sensation in the face in all 3 distributions of the fifth cranial nerve bilaterally. Corneal reflexes are positive bilaterally. Facial strength and symmetry was normal bilaterally. Hearing seems normal bilaterally. Palate moves well without asymmetry. There is normal sternocleidomastoid and trapezius (shoulder shrug) strength bilaterally. Tongue is midline with good strength bilaterally. Neck has a full range of motion without discomfort. There are no cervical bruits bilaterally. There are no cranial or ocular bruits. Heart is without murmur. There is a regular rhythm and rate. Cervical, thoracic, and lumbar spine are nontender to palpation. Gait is narrow based. I watched her walk with a walker and she did fairly well on her own power and good pivot into the chair sitting well. With outstretched arms there is no drift. There are no resting, postural, or action tremors. There is no ataxia with finger to nose testing. There is good facility in the hands (Perhaps some clumsiness on the right). No other abnormal involuntary movements are noted. Motor strength is 5/5 diffusely in the arms bilaterally including deltoids, biceps, triceps, brachioradialis, wrist flexors and extensors, superintendent custodian janitor, and intrinsic hand muscles. Motor strength is 5/5 diffusely in the legs bilaterally including hip flexors, quadriceps, hamstrings, gastrocnemius, tibialis anterior, tibialis posterior, and Peroneii muscles. Toe extensors are normal and there is good bulk in the extensor digitorum brevis muscles bilaterally. The limbs have good tone without rigidity or spasticity. There is no atrophy noted in the muscles. Muscle bulk is normal, there is no tenderness to palpation, no myotonia to percussion, and no fasciculations seen. Sensory examination is intact to touch and pin throughout all 4 limbs diffusely. Reflexes are 2/4 in the biceps, triceps, and brachioradialis tendons bilaterally. quadriceps and Achilles tendon reflexes are absent bilaterally. There is no clonus bilaterally. Toes are downgoing with plantar stimulation bilaterally. Peripheral pulses are present and of normal quality distally in all 4 limbs. There is no peripheral edema noted in the limbs. Results & Data ([facility]) Vital Signs (Past 12 Hours) Vital Signs Temp Pulse Pulse Resp BP BP BP 10/10/21 07:43 76 10/10/21 05:31 36.7 C 74 20 178/82 H 10/10/21 05:30 64 10/10/21 01:57 10/10/21 01:55 63 16 166/62 H 10/10/21 01:30 65 18 166/69 H 10/09/21 23:42 55 L 18 190/83 H 10/09/21 22:50 20 10/09/21 22:40 33 H 10/09/21 22:30 17 10/09/21 22:20 58 L 17 10/09/21 22:10 61 19 10/09/21 22:01 51 L 22 191/71 H 10/09/21 22:00 60 21 10/09/21 21:50 60 19 10/09/21 21:40 21 Pulse Ox Pulse Ox 10/10/21 07:43 10/10/21 05:31 94 10/10/21 05:30 10/10/21 01:57 96 10/10/21 01:55 98 10/10/21 01:30 96 10/09/21 23:42 98 10/09/21 22:50 10/09/21 22:40 10/09/21 22:30 10/09/21 22:20 10/09/21 22:10 10/09/21 22:01 10/09/21 22:00 10/09/21 21:50 95 10/09/21 21:40 PG Care Time/CCT Total # of Minutes Spent Total Time Spent with Patient: Total time spent is greater than 50% in coordination of care (as documented) at patient's floor/unit and/or counseling patient: Coding Level of Care Code 89382 Office/Outpt Visit, New Diagnoses Acute embolic stroke I63.9 Acute encephalopathy G93.40 Hypertension I10 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
--- NOTE | 2021-10-10 13:16 | XCELERA ---
[id number]
--- NOTE | 2021-10-10 13:28 | Pharmacy Report ---
Pharmacy Glycemic Short Note 2 - Date of Service October 10, 2021 - Glycemic Short BSG Results (Last 24 hours): 10/09/21 10/10/21 10/10/21 20:38 04:52 05:22 Glucose 115 H 187 H POC Glucose 188 H 10/10/21 10/10/21 07:45 11:40 Glucose POC Glucose 187 H 177 H OUTPATIENT ANTIDIABETIC REGIMEN: * Amaryl 1 mg daily * metformin 500 mg BID ASSESSMENT: * Ms Saucedo is an 85 y/o F with a PMH of T2DM who presents with headache. She was given Solu-Medrol 60 mg IV x 1 @0134 * Fasting BSG was 188 mg/dL. * Start Lantus 25 units x 1 (0.25 units/kg) to help accommodate steroid hyperglycemia. * Lantus scale for tomorrow morning. * Novolog weight-based stress of 3. Loosen this to weight-based stress of 2 at dinnertime as expect steroid hyperglycemia to not be as great. PLAN FOR INPATIENT GLYCEMIC CONTROL: * Hold outpatient oral diabetes medications * Basal insulin * Lantus 25 units SQ x 1 then 0-30 units SQ qAM * Bolus insulin * NovoLog per scale ACHS or Q6hrs while NPO * Goal Range: Low 110 mg/dL - High 140 mg/dL * Correction Factor: 20 mg/dL/unit * Nutritional / Prandial insulin per carb ratio of 1 unit per 7 grams CHO consumed PLAN FOR DISCHARGE: * HbA1C pending
[2021-10-10 14:08] LABS: Estimated Average Glucose 143 mg/dl; Hemoglobin A1C 6.6 % (4.5-5.6)
--- NOTE | 2021-10-10 14:11 | Ultrasound Report ---
BILATERAL LOWER EXTREMITY VENOUS DOPPLER HISTORY: Embolic stroke. Assess for DVT. COMPARISON STUDY: None. FINDINGS: There is normal compressibility, flow, and augmentation within the visualized bilateral low er extremity deep venous systems. Of note, the calf vessels were not well visualized. IMPRESSION: No DVT within the visualized right or left lower extremity. ACT 112: Negative or not required by law. Electronically signed by: Chapito Lewis M.D. 10/10/2021 2:09 PM
[2021-10-10] MEDS ORDERED: amLODIPine BESYLATE 5 MG TAB PO ONE (14:48)
[2021-10-10] MEDS ORDERED: Heparin IV Adult Wt-Based Low-Dose WITH Bolus Protocol IV SCH (15:34)
--- NOTE | 2021-10-10 16:13 | Electrocardiogram Report ---
Test Reason : Blood Pressure : / mmHG Vent. Rate : 055 BPM Atrial Rate : 055 BPM P-R Int : 170 ms QRS Dur : 112 ms QT Int : 434 ms P-R-T Axes : 073 -47 043 degrees QTc Int : 415 ms Sinus bradycardia Left axis deviation Poor R wave progression, consider anterior IN vs. lead placement vs. LVH Abnormal ECG When compared with ECG of 07-JUL-2021 04:48, T wave inversion no longer evident in Inferior leads Confirmed by Eulalio Marcus ([id number]) on 10/10/2021 4:13:11 PM Referred By: VALENTINE Confirmed By:Eulalio Marcus
[2021-10-10] MEDS ORDERED: HEPARIN SOD (PORCINE) 1000 UNIT/ML IV ONE (16:45)
[2021-10-10 17:26] LABS: Basophils # (auto) 0.01 K/uL (0-0.2); Basophils % (auto) 0.1 %; Hematocrit (blood only) 40.6 % (37-47); Hemoglobin 12.6 g/dL (12.0-16.0); Immature Granulocytes # (auto) 0.02 K/uL (0.00-0.02); Immature Granulocytes % (auto) 0.2 %; Lymphocytes # (auto) 1.62 K/uL (1.2-3.4); Mean Corpuscular Hemoglobin 28.3 pg (25-34); Mean Corpuscular Volume 91.2 fL (80-100); Mean Platelet Volume 10.1 fL (7.4-10.4); Monocytes # (auto) 0.81 K/uL (0.11-0.59); Neutrophils # (auto) 9.11 K/uL (1.4-6.5); Neutrophils % (auto) 78.7 %; Platelet Count 191 K/uL (130-400); RDW Coefficient of Variation 19.4 % (11.5-14.5); RDW Standard Deviation 65.2 fL (36.4-46.3); Red Blood Count 4.45 M/uL (4.2-5.4); White Blood Count 11.57 K/uL (4.8-10.8)
[2021-10-10 17:33] LABS: Partial Thromboplastin Ratio 0.9; Partial Thromboplastin Time 24.1 Seconds (21.0-31.0); Prothrombin Time 9.9 Seconds (9.0-12.0)
[2021-10-10] MEDS: HEPARIN SODIUM/DEXTROSE 25,000 UNITS/500 ML BAG IV SCH (17:46)
[2021-10-10] MEDS: ATORVASTATIN 10 MG TAB PO SCH (20:16)
[2021-10-10] MEDS: QUEtiapine FUMARATE 25 MG TABLET PO SCH (20:16)
[2021-10-10] MEDS: MONTELUKAST SODIUM 10 MG TABLET PO SCH (20:16)
[2021-10-10 23:53] LABS: Partial Thromboplastin Ratio 1.9
[2021-10-11] MEDS ORDERED: methylPREDNISolone 60 MG in SYRINGE 0 ML IV SCH (02:00)
--- NOTE | 2021-10-11 02:58 | Billing Data ---
Date of Service October 11, 2021 Coding Level of Care Code 13002 Initial Inpt Care Lvl 3
[2021-10-11 07:12] LABS: Basophils # (auto) 0.04 K/uL (0-0.2); Basophils % (auto) 0.4 %; Eosinophils # (auto) 0.15 K/uL (0-0.5); Eosinophils % (auto) 1.4 %; Hematocrit (blood only) 36.6 % (37-47); Hemoglobin 11.1 g/dL (12.0-16.0); Immature Granulocytes # (auto) 0.02 K/uL (0.00-0.02); Immature Granulocytes % (auto) 0.2 %; Lymphocytes # (auto) 2.15 K/uL (1.2-3.4); Mean Corpuscular Hemoglobin 28.3 pg (25-34); Mean Corpuscular Hgb Conc 30.3 g/dL (32-36); Mean Corpuscular Volume 93.4 fL (80-100); Monocytes # (auto) 0.95 K/uL (0.11-0.59); Monocytes % (auto) 8.9 %; Neutrophils # (auto) 7.42 K/uL (1.4-6.5); Neutrophils % (auto) 69.1 %; Platelet Count 241 K/uL (130-400); RDW Coefficient of Variation 19.5 % (11.5-14.5); RDW Standard Deviation 66.7 fL (36.4-46.3); Red Blood Count 3.92 M/uL (4.2-5.4); White Blood Count 10.73 K/uL (4.8-10.8)
[2021-10-11 07:39] LABS: BUN Creatinine Ratio 17.4 (10-20); Calcium 9.5 mg/dl (8.5-10.1); Creatinine Clr Calc Pharmacy 27.7 ml/min; Est GFR (African American) 31.1 ml/min; Est GFR (Non-African American) 26.8 ml/min
[2021-10-11 07:45] LABS: Partial Thromboplastin Ratio 1.6; Partial Thromboplastin Time 42.5 Seconds (21.0-31.0)
[2021-10-11] MEDS: FLUTICASONE/VILANTEROL 100/25MCG 14 PUFFS/INHALER INH SCH (08:15)
[2021-10-11] MEDS: PANTOprazole 40 MG TAB PO SCH (08:15)
[2021-10-11] MEDS: CHOLECALCIFEROL 5,000 UNITS 125 MCG TAB PO SCH (08:16)
[2021-10-11] MEDS: FUROSEMIDE 20 MG TAB PO SCH (08:16)
[2021-10-11] MEDS: amLODIPine BESYLATE 5 MG TAB PO SCH (08:16)
[2021-10-11] MEDS: IRON POLYSACCHARIDE COMPLEX 150 MG CAPSULE PO SCH (08:17)
[2021-10-11] MEDS: ASPIRIN 81 MG ECTAB PO SCH (08:17)
[2021-10-11] MEDS: CALCIUM 600MG + VIT D 400 IU TAB PO SCH (08:17)
[2021-10-11] MEDS ORDERED: INSULIN GLARGINE SOLOSTAR 100 UNITS/ML 3 ML PEN SC SCH (09:00)
[2021-10-11] MEDS: INSULIN ASPART PER UNIT SC SCH ×4 (09:10→20:39)
--- NOTE | 2021-10-11 10:09 | Neurology Progress Note ---
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 She had a left cerebellar stroke which could explain her balance and the multiple bilateral strokes could explain other symptoms including confusion. This morning she is the same to somewhat better in general. The patient had a markedly elevated blood pressure which could explain her confusion as well ( hypertensive encephalopathy ). Blood pressure is quite normal today. In addition, she has an elevated white count, elevated sed rate, and CRP. Today her white count is normal. Even though she had a temporal headache yesterday she only had a headache for 1 day and this is not consistent with a temporal arteritis ( which is a subacute/chronic inflammatory condition ). I would be more concerned about a urinary tract infection or other source of infection. Recommendations new 1. Control blood pressure as you are doing, aiming for a mean arterial pressure of 100. 2. The patient would be a statin candidate but I would avoid high doses given her age and lipid levels. 3. consider anticoagulation and 81 milligram aspirin tablet daily. if no oral a nticoagulant indicated, then I would switch her aspirin to Plavix. I am very concerned that her strokes are from emboli from the heart , given their multiple vascular distributions. 4. Increase activity as able with physical therapy, occupational therapy, and speech therapy consult. Overall, I spent a total of 25 minutes on this case including review of records, direct evaluation the patient bedside, and discussion of the case with the patient and RN at bedside, and Dr. Quintana, including differential diagnosis and treatment options. Admission and Anticipated Discharge Date Admission Date: October 09, 2021 Subjective The patient complains of some right ear pain but otherwise is doing very well. Blood pressure is 122/74 an echocardiogram was unchanged compared to 07/06/2021. She is on heparin drip. Results & Data ([facility]) Vital Signs (Past 12 Hours) Vital Signs Temp Pulse Pulse Resp BP BP Pulse Ox 10/11/21 07:32 36.7 C 65 20 122/74 94 10/11/21 07:28 70 10/11/21 05:16 36.4 C L 76 18 117/59 L 96 10/11/21 00:35 82 10/10/21 23:00 36.6 C 65 20 150/79 H 92 Exam (Neuro) Physical Exam: She is awake and alert. Speech is without any obvious aphasia or dysarthria. Extraocular eye muscles are intact without nystagmus or is no facial droop. Coordination seems normal in the arms and strength is symmetrical in all 4 limbs. 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
--- NOTE | 2021-10-11 10:28 | Anesthesiology Consultation ---
Date of Service October 11, 2021 Assessment & Plan (1) Encounter for pre-operative examination: Chart Review Chart Review: order entry initiated History Height/Weight Height: 5 ft 4 in Weight: 98.3 kg Allergies Allergy/AdvReac Type Severity Reaction Status Date / Time coconut Allergy Intermediate Rash Verified 10/09/21 20:37 peanut Allergy Intermediate Rash Verified 10/09/21 20:37 blueberry Allergy Unknown Verified 10/09/21 20:37 raspberry Allergy Unknown Verified 10/09/21 20:37 oxycodone [From OxyContin] AdvReac Mild hallucinati Verified 10/08/21 10:13 on Medications Home Medications Medication Instructions Recorded Confirmed Last Taken tramadol 50 mg tablet 50 mg PO Q8H PRN #90 tab 10/03/20 10/09/21 Unknown amlodipine 5 mg tablet 5 mg PO DAILY #90 tab 02/04/21 10/09/21 10/09/21 07:30 metformin 500 mg tablet 500 mg PO BID #180 tab 03/06/21 10/09/21 10/09/21 17:00 acetaminophen 325 mg tablet 650 mg PO Q4H PRN #120 tab MDD 3g 05/26/21 10/09/21 Unknown or 9 tabs atorvastatin 10 mg tablet 10 mg PO HS #90 tab 05/26/21 10/09/21 10/08/21 cyanocobalamin (vitamin B-12) 1,000 mcg IM MONTHLY #1 ml 05/26/21 10/09/21 Unkn own 1,000 mcg/mL injection solution glimepiride 1 mg tablet 1 mg PO QAM #90 tab 05/26/21 10/09/21 10/09/21 07:30 lisinopril 20 mg tablet 20 mg PO BID #180 tab 05/26/21 10/09/21 10/09/21 17:00 metoprolol tartrate 50 mg tablet 50 mg PO BID #180 tab 05/26/21 10/09/21 10/09/21 17:00 montelukast 10 mg tablet 10 mg PO HS #90 tab 05/26/21 10/09/21 10/08/21 pantoprazole 40 mg tablet,delayed 40 mg PO DAILY #90 tab 05/26/21 10/09/21 10/09/21 16:30 release quetiapine 50 mg tablet 50 mg PO HS #90 tab 05/26/21 10/09/21 10/08/21 albuterol sulfate 90 mcg/actuation 2 puff INHALATION Q6H PRN #8.5 g 06/27/21 10/09/21 Unknown aerosol inhaler fluticasone 100 mcg-salmeterol 50 1 inh INHALATION BID #180 ea 06/27/21 10/09/21 10/09/21 07:30 mcg/dose blistr powdr for inhalation (Advair Diskus) cholecalciferol (vitamin D3) 125 125 mcg PO DAILY #90 tab 07/01/21 10/09/21 0 10/09/21 07:30 mcg (5,000 unit) tablet polysaccharide iron complex 150 mg 150 mg PO DAILY #90 cap 07/01/21 10/09/21 10/09/21 07:30 iron capsule (Ferrex) Oxygen Home #1 ea 07/13/21 10/09/21 Unknown aspirin 81 mg tablet,delayed 81 mg PO DAILY #90 tab 10/01/21 10/09/21 10/09/21 07:30 release (Aspirin Low Dose) acetaminophen 325 mg tablet 650 mg PO HS 10/09/21 10/09/21 10/08/21 calcium carbonate 600 mg-vitamin 1 tab PO DAILY 10/09/21 10/09/21 10/09/21 07:30 D3 5 mcg (200 unit) tablet (Calcium 600 + D(3)) dextran 70-hypromellose eye drops 1 drp OPHTHALMIC (EYE) DAILY PRN 10/09/21 10/09/21 Unknown in a dropperette (Artificial Tears (PF)) furosemide 20 mg tablet (Lasix) 20 mg PO DAILY 10/09/21 10/09/21 10/09/21 07:30 guaifenesin 600 mg tablet, 600 mg PO Q12H PRN 10/09/21 10/09/21 Unknown extended release 12 hr (Mucinex) methyl salicylate 15 %-menthol 10 1 applic TOPICAL BID PRN 10/09/21 10/09/21 Unknown % topical cream nystatin 100,000 unit/gram topical 1 appln TOP TID PRN 10/09/21 10/09/21 Unknown powder (Nystop) sennosides 8.6 mg tablet (Senokot) 8.6 mg PO DAILY PRN 10/09/21 10/09/21 Unknown Active Medications Generic Name Dose Route Start Last Admin Trade Name Emily PRN Reason Stop Dose Admin Acetaminophen 650 mg 10/10/21 01:45 10/10/21 20:38 Acetaminophen 325 Mg Tab PO 11/09/21 01:44 650 mg Q4H PRN Administration Pain or Fever Amlodipine Besylate 5 mg 10/10/21 09:00 10/11/21 08:16 Amlodipine Besylate 5 Mg Tab PO 11/09/21 08:59 5 mg DAILY JOVI Administration Aspirin 81 mg 10/10/21 09:00 10/11/21 08:17 Aspirin 81 Mg Ectab PO 11/09/21 08:59 81 mg DAILY JOVI Administration Atorvastatin Calcium 10 mg 10/10/21 21:00 10/10/21 20:16 Atorvastatin 10 Mg Tab PO 11/09/21 20:59 10 mg HS JOVI Administration Fluticasone/Vilanterol 1 puffs 10/10/21 09:00 10/11/21 08:15 Fluticasone/Vilanterol 100/25mcg 14 Puffs/Inhaler INH 11/09/21 08:59 1 puffs DAILY JOVI Administration Furosemide 20 mg 10/10/21 09:00 10/11/21 08:16 Furosemide 20 Mg Tab PO 11/09/21 08:59 20 mg DAILY JOVI Administration Heparin Sodium/Dextrose 25,000 units in 500 mls @ 18 mls/hr 10/10/21 15:45 10/11/21 07:50 Heparin Sodium/Dextrose IV 11/09/21 15:44 900 units/hr .Q24H JOVI 18 mls/hr Titration Protocol 900 UNITS/HR Insulin Aspart 0 units 10/10/21 04:00 10/11/21 09:10 Insulin Aspart Per Unit SC 11/09/21 03:59 7 units ACHS JOVI Administration Protocol Insulin Glargine 0 units 10/11/21 09:00 10/11/21 09:06 Insulin Glargine Solostar 100 Units/Ml 3 Ml Pen SC 11/10/21 08:59 15 units QAM JOVI Administration Protocol Montelukast Sodium 10 mg 10/10/21 21:00 10/10/21 20:16 Montelukast Sodium 10 Mg Tablet PO 11/09/21 20:59 10 mg HS JOVI Administration Multivitamins/Minerals 1 tab 10/10/21 09:00 10/11/21 08:17 Calcium 600mg + Vit D 400 Iu Tab PO 11/09/21 08:59 1 tab DAILY JOVI Administration Pantoprazole Sodium 40 mg 10/10/21 09:00 10/11/21 08:15 Pantoprazole 40 Mg Tab PO 11/09/21 08:59 40 mg DAILY JOVI Administration Polysaccharide Iron Complex 150 mg 10/10/21 09:00 10/11/21 08:17 Iron Polysaccharide Complex 150 Mg Capsule PO 11/09/21 08:59 150 mg DAILY JOVI Administration Quetiapine Fumarate 50 mg 10/10/21 21:00 10/10/21 20:16 Quetiapine Fumarate 25 Mg Tablet PO 11/09/21 20:59 50 mg HS JOVI Administration Vitamin D 5,000 units 10/10/21 09:00 10/11/21 08:16 Cholecalciferol 5,000 Units 125 Mcg Tab PO 11/09/21 08:59 5,000 units DAILY JOVI Administration Past Medical History Medical History Acute congestive heart failure Anemia Asthma Benign essential tremor Chronic cerebral ischemia Chronic low back pain Chronic renal insufficiency CKD (chronic kidney disease), stage III Hyperlipidemia Hypertension Mood disorder Obstructive sleep apnea s/p UPPP surgery Osteoarthritis Osteopenia Peripheral neuropathy Prolapse of female pelvic organs Type 2 diabetes mellitus Vitamin B12 deficiency Vitamin D deficiency Past Family History Family History Sister Liver cancer Mother , in her 50s of heart issues Heart disease Father , in his 50s of cancer Cancer Denies family history of Ovarian cancer Breast cancer Colorectal cancer Uterine cancer Past Surgical History Surgical History H/O wisdom tooth extraction History of knee replacement R and L History of tonsillectomy and adenoidectomy S/P appendectomy S/P cholecystectomy S/P uvulopalatopharyngoplasty S/P vaginal hysterectomy unsure if ovaries were left Social History Smoking Status: Never smoker Do You Dip or Chew Tobacco: No Hx Alcohol Use: No Hx Substance Use: No Physical Exam Vital Signs Last Vital Signs Temp 98.1 F 10/11/21 07:32 Pulse 65 10/11/21 07:32 Resp 20 10/11/21 07:32 BP 122/74 10/11/21 07:32 Pulse Ox 94 10/11/21 07:32 Testing Laboratory Results 10/11/21 06:39 10/11/21 06:39 PT 9.9 Seconds (9.0-12.0) 10/10/21 17:02 INR 1.0 (0.9-1.1) 10/10/21 17:02 APTT 42.5 Seconds (21.0-31.0) H 10/11/21 06:39 Hemoglobin A1c 6.6 % (4.5-5.6) H 10/10/21 04:52 Urine Color Yellow 10/09/21 20:38 Urine Appearance Cloudy (Clear) A 10/09/21 20:38 Urine pH 7.5 (4.5-7.5) 10/09/21 20:38 Ur Specific [place] 1.009 (1.000-1.030) 10/09/21 20:38 Urine Protein Trace (Negative) H 10/09/21 20:38 Urine Glucose (UA) Negative (Negative) 10/09/21 20:38 Urine Ketones Negative (Negative) 10/09/21 20:38 Urine Nitrite Negative (Negative) 10/09/21 20:38 Ur Leukocyte Esterase 3+ (Negative) H 10/09/21 20:38 Urine WBC (Auto) >30 /hpf (0-5) H 10/09/21 20:38 Urine RBC (Auto) 0-4 /hpf (0-4) 10/09/21 20:38 U Hyaline Cast (Auto) 1-5 /lpf (0-5) 10/09/21 20:38 U Epithel Cells (Auto) >30 /lpf (0-5) H 10/09/21 20:38 Urine Bacteria (Auto) 1+ (Negative) H 10/09/21 20:38 10/09/21 22:34 Aerobic Blood Culture - Preliminary Blood No growth in Aerobic bottle after 24 hours. Anaerobic Blood Culture - Final 10/09/21 22:40 Aerobic Blood Culture - Preliminary Blood No growth in Aerobic bottle after 24 hours. Anaerobic Blood Culture - Preliminary No growth in Anaerobic bottle after 24 hours. 10/09/21 20:38 Urine Culture - Final Urine,Clean Catch Three types of organisms present, all high counts. Repeat collection recommended. No further identifications or sensitivities to follow. 10/11/21 07:47 POC Glucose 132 H Laboratory Tests 10/09/21 20:38 SARS-CoV-2, RNA, NAAT NEGATIVE Electrocardiogram Date: 10/09/21 Sinus bradycardia, rate 55 bpm Left axis deviation Poor R wave progression, consider anterior AK vs. lead placement vs. LVH Abnormal ECG When compared with ECG of 07-JUL-2021 04:48, T wave inversion no longer evident in Inferior leads Confirmed by Eulalio Marcus ([id number]) on 10/10/2021 4:13:11 PM Chest X-Ray Date: 10/09/21 FINDINGS: No lines and tubes are seen. The cardiomediastinal silhouette is normal. The lungs are clear. No evidence of pleural effusion or pneumothorax. Echocardiogram Date: 10/10/21 LV systolic function is normal No regional wall motion abnormalities noted Mild concentric LVH EF 60-65% Compared with study of 07/06/2021, no significant change
[2021-10-11 14:56] LABS: Partial Thromboplastin Ratio 1.4; Partial Thromboplastin Time 36.9 Seconds (21.0-31.0)
[2021-10-11] MEDS ORDERED: HEPARIN IV BOLUS 3,000 UNITS in SYRINGE 0 ML IV ONE (15:10)
[2021-10-11] MEDS: HEPARIN SODIUM/DEXTROSE 25,000 UNITS/500 ML BAG IV SCH (15:12)
--- NOTE | 2021-10-11 15:31 | Hospitalist Progress Note ---
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: Plan: continue to treat stroke (4) (HFpEF) heart failure with preserved ejection fraction: Plan: examines euvolemic on Lasix (5) Headache: Plan: resolved, no concerns for temporal arteritis, stopped Solu Medrol (6) CKD (chronic kidney disease), stage III: Plan: Cr is stable (7) Asthma: (8) Hyperlipidemia: (9) Type 2 diabetes mellitus: Plan: hold oral agents Novolog SS (10) Chronic respiratory failure with hypoxia and hypercapnia: Plan: breathing is stable Plan: Eliquis for anticoagulation given concern for embolic strokes PT/OT work on potential rehab, will see if she is strong enough to return to [facility] on Wednesday Admission and Anticipated Discharge Date Admission Date: October 09, 2021 Subjective patient sitting up in chair, speaking clearly, she c/o the food, says it is terrible she says her neck and upper back hurt no fever, no dyspnea, no cough, no chest pain, no nausea, no diarrhea discussed stroke diagnosis, working on getting rehab, she agrees discussed case with Dr. Markham, appreciate his input Review of Systems Review of Systems: All systems reviewed & are unremarkable except as noted in Subjective Physical Exam Physical Exam: General: well developed, well nourished elderly femaled, no acute distress, comfortable Neck: supple, trachea midline, normal thyroid Lungs: clear to auscultation bilaterally, normal respiratory effort, no accessory muscle use, no distress Heart: regular S1 and S2, no murmur, peripheral pulses normal, capillary refill normal, no edema Abdomen: soft, NT, ND, + BS, no hepatomegaly, normal to percussion Extremities: normal in appearance, no cyanosis, no petechiae, strength is 5/5 bilaterally Neuro: awake, cooperative, moves all extremities, no focal motor deficits, CN II-XII intact, sensation in extremities intact, normal speech Skin: warm, dry, no rash, normal turgor Psych: Awake, alert oriented x 3, euthymic affect Results & Data Results & Data ([facility]) Vital Signs (Past 12 Hours) Vital Signs Temp Pulse Pulse Resp BP BP Pulse Ox 10/11/21 14:57 36.7 C 70 20 167/82 H 93 10/11/21 11:16 36.4 C L 73 19 160/87 H 95 10/11/21 07:32 36.7 C 65 20 122/74 94 10/11/21 07:28 70 10/11/21 05:16 36.4 C L 76 18 117/59 L 96 Laboratory Results Laboratory Results - last 24 hr 10/10/21 10/10/21 10/10/21 16:48 17:02 17:02 WBC 11.57 H RBC 4.45 Hgb 12.6 Hct 40.6 MCV 91.2 MCH 28.3 MCHC 31.0 L RDW Std Deviation 65.2 H RDW Coeff of Shama 19.4 H Plt Count 191 MPV 10.1 Immature Gran % (Auto) 0.2 Neut % (Auto) 78.7 Lymph % (Auto) 14.0 [place] % (Auto) 7.0 Eos % (Auto) 0.0 Baso % (Auto) 0.1 Neut # (Auto) 9.11 H Lymph # (Auto) 1.62 [place] # (Auto) 0.81 H Eos # (Auto) 0.00 Baso # (Auto) 0.01 Immature Gran # (Auto) 0.02 PT 9.9 INR 1.0 APTT 24.1 PTT Ratio 0.9 Sodium Potassium Chloride Carbon Dioxide Anion Gap BUN Creatinine Est Cr Clr Drug Dosing Est GFR ( Amer) Est GFR (Non-Af Amer) BUN/Creatinine Ratio Glucose POC Glucose 153 H Calcium 10/10/21 10/10/21 10/11/21 20:33 23:21 06:39 WBC 10.73 RBC 3.92 L Hgb 11.1 L Hct 36.6 L MCV 93.4 MCH 28.3 MCHC 30.3 L RDW Std Deviation 66.7 H RDW Coeff of Shama 19.5 H Plt Count 241 MPV 10.0 Immature Gran % (Auto) 0.2 Neut % (Auto) 69.1 Lymph % (Auto) 20.0 [place] % (Auto) 8.9 Eos % (Auto) 1.4 Baso % (Auto) 0.4 Neut # (Auto) 7.42 H Lymph # (Auto) 2.15 [place] # (Auto) 0.95 H Eos # (Auto) 0.15 Baso # (Auto) 0.04 Immature Gran # (Auto) 0.02 PT INR APTT 51.0 H* PTT Ratio 1.9 Sodium Potassium Chloride Carbon Dioxide Anion Gap BUN Creatinine Est Cr Clr Drug Dosing Est GFR ( Amer) Est GFR (Non-Af Amer) BUN/Creatinine Ratio Glucose POC Glucose 174 H Calcium 10/11/21 10/11/21 10/11/21 06:39 06:39 07:47 WBC RBC Hgb Hct MCV MCH MCHC RDW Std Deviation RDW Coeff of [place]ama Plt Count MPV Immature Gran % (Auto) Neut % (Auto) Lymph % (Auto) [place] % (Auto) Eos % (Auto) Baso % (Auto) Neut # (Auto) Lymph # (Auto) [place] # (Auto) Eos # (Auto) Baso # (Auto) Immature Gran # (Auto) PT INR APTT 42.5 H PTT Ratio 1.6 Sodium 136 Potassium 5.0 Chloride 102 Carbon Dioxide 30 Anion Gap 4.0 BUN 30 H Creatinine 1.72 H Est Cr Clr Drug Dosing 27.7 Est GFR ( Amer) 31.1 Est GFR (Non-Af Amer) 26.8 BUN/Creatinine Ratio 17.4 Glucose 131 H POC Glucose 132 H Calcium 9.5 10/11/21 10/11/21 11:21 14:28 WBC RBC Hgb Hct MCV MCH MCHC RDW Std Deviation RDW Coeff of Shama Plt Count MPV Immature Gran % (Auto) Neut % (Auto) Lymph % (Auto) [place] % (Auto) Eos % (Auto) Baso % (Auto) Neut # (Auto) Lymph # (Auto) [place] # (Auto) Eos # (Auto) Baso # (Auto) Immature Gran # (Auto) PT INR APTT 36.9 H PTT Ratio 1.4 Sodium Potassium Chloride Carbon Dioxide Anion Gap BUN Creatinine Est Cr Clr Drug Dosing Est GFR ( Amer) Est GFR (Non-Af Amer) BUN/Creatinine Ratio Glucose POC Glucose 183 H Calcium Medications Administered Current Inpatient Medications Acetaminophen (Acetaminophen 325 Mg Tab) 650 mg PO Q4H PRN PRN Reason: Pain or Fever Stop: 11/09/21 01:44 Last Admin: 10/10/21 20:38 Dose: 650 mg Documented by: Albuterol (Albuterol Hfa 8 Gm Inhaler) 2 puffs INH Q6H PRN PRN Reason: shortness of breath or wheezin Stop: 11/09/21 01:44 Amlodipine Besylate (Amlodipine Besylate 5 Mg Tab) 5 mg PO DAILY JOVI Stop: 11/09/21 08:59 Last Admin: 10/11/21 08:16 Dose: 5 mg Documented by: Artificial Tears (Artificial Tears) 1 drops OP DAILY PRN PRN Reason: Dry Eyes Stop: 11/09/21 02:26 Aspirin (Aspirin 81 Mg Ectab) 81 mg PO DAILY [facility] Stop: 11/09/21 08:59 Last Admin: 10/11/21 08:17 Dose: 81 mg Documented by: Atorvastatin Calcium (Atorvastatin 10 Mg Tab) 10 mg PO HS [facility] Stop: 11/09/21 20:59 Last Admin: 10/10/21 20:16 Dose: 10 mg Documented by: Cyanocobalamin (Cyanocobalamin 1000 Mcg/Ml Vial) 1,000 mcg IM 10/26/21@0900 [facility] Stop: 10/26/21 09:01 Dextrose (Dextrose 50% 50 Ml Syringe) 25 - 50 ml IV UD PRN; Protocol PRN Reason: Hypoglycemia Protocol Stop: 11/09/21 03:59 Fluticasone/Vilanterol (Fluticasone/Vilanterol 100/25mcg 14 Puffs/Inhaler) 1 puffs INH DAILY JOVI Stop: 11/09/21 08:59 Last Admin: 10/11/21 08:15 Dose: 1 puffs Documented by: Furosemide (Furosemide 20 Mg Tab) 20 mg PO DAILY JOVI Stop: 11/09/21 08:59 Last Admin: 10/11/21 08:16 Dose: 20 mg Documented by: Glucagon (Glucagon For Inj 1 Mg Vial) 1 mg IM UD PRN; Protocol PRN Reason: Hypoglycemia Protocol Stop: 11/09/21 03:59 Glucose (Glucose 40% Gel 15 Gm Tube) 15 - 30 gm PO UD PRN; Protocol PRN Reason: Hypoglycemia Protocol Stop: 11/09/21 03:59 Glucose (Glucose 10 Tabs/Tube) 4 - 8 tabs PO UD PRN; Protocol PRN Reason: Hypoglycemia Protocol Stop: 11/09/21 03:59 Guaifenesin (Guaifenesin 600 Mg Tabcr) 600 mg PO Q12H PRN PRN Reason: Congestion Stop: 11/09/21 01:44 Heparin Sodium/Dextrose (Heparin Sodium/Dextrose) 25,000 units in 500 mls @ 21 mls/hr IV .[id number] [facility]; Protocol Stop: 11/09/21 15:44 Last Admin: 10/11/21 15:12 Dose: 1,050 units/hr, 21 mls/hr Documented by: Insulin Aspart (Insulin Aspart Per Unit) 0 units SC ACHS [facility]; Protocol Stop: 11/09/21 03:59 Last Admin: 10/11/21 12:44 Dose: 7 units Documented by: Insulin Glargine (Insulin Glargine Solostar 100 Units/Ml 3 Ml Pen) 0 units SC QAM [facility]; Protocol Stop: 11/10/21 08:59 Last Admin: 10/11/21 09:06 Dose: 15 units Documented by: Miscellaneous (Carbohydrates For Hypoglycemia ) 15 - 30 gm PO UD PRN PRN Reason: Hypoglycemia Treatment Stop: 11/09/21 03:59 Miscellaneous Information (Pharmacy Glycemic Mgmt Consult) 1 ea N/A UD PRN PRN Reason: Consult Stop: 11/09/21 01:44 Montelukast Sodium (Montelukast Sodium 10 Mg Tablet) 10 mg PO HS [facility] Stop: 11/09/21 20:59 Last Admin: 10/10/21 20:16 Dose: 10 mg Documented by: Multivitamins/Minerals (Calcium 600mg + Vit D 400 Iu Tab) 1 tab PO DAILY [facility] Stop: 11/09/21 08:59 Last Admin: 10/11/21 08:17 Dose: 1 tab Documented by: Nitroglycerin (Nitroglycerin Sl 0.4 Mg/Tab Tab) 0.4 mg SL UD PRN PRN Reason: Chest Pain Stop: 11/09/21 01:44 Nystatin (Nystatin Powder 15gm Btl) 1 appln EXT TID PRN PRN Reason: irritation Stop: 11/09/21 01:44 Pantoprazole Sodium (Pantoprazole 40 Mg Tab) 40 mg PO DAILY [facility] Stop: 11/09/21 08:59 Last Admin: 10/11/21 08:15 Dose: 40 mg Documented by: Polyethylene Glycol (Polyethylene (Miralax) 17 Gm Pack) 17 gm PO DAILY PRN PRN Reason: Constipation Stop: 11/09/21 01:44 Polysaccharide Iron Complex (Iron Polysaccharide Complex 150 Mg Capsule) 150 mg PO DAILY JOVI Stop: 11/09/21 08:59 Last Admin: 10/11/21 08:17 Dose: 150 mg Documented by: Quetiapine Fumarate (Quetiapine Fumarate 25 Mg Tablet) 50 mg PO HS JOVI Stop: 11/09/21 20:59 Last Admin: 10/10/21 20:16 Dose: 50 mg Documented by: Sennosides (Senna 8.6 Mg Tab) 8.6 mg PO DAILY PRN PRN Reason: Constipation Stop: 11/09/21 01:44 Tramadol HCl (Tramadol Hcl 50 Mg Tablet) 50 mg PO Q8H PRN PRN Reason: Pain Stop: 11/10/21 15:29 Vitamin D (Cholecalciferol 5,000 Units 125 Mcg Tab) 5,000 units PO DAILY [facility] Stop: 11/09/21 08:59 Last Admin: 10/11/21 08:16 Dose: 5,000 units Documented by: PG Care Time/CCT Total # of Minutes Spent Total Time Spent with Patient: Total time spent is greater than 50% in coordination of care (as documented) at patient's floor/unit and/or counseling patient: Coding Level of Care Code 75174 Subseq Hosp Care Lvl 2 Diagnoses Headache R51.9 (HFpEF) heart failure with preserved ejection fraction I50.30 CKD (chronic kidney disease), stage III N18.30 Asthma J45.909 Hyperlipidemia E78.5 Type 2 diabetes mellitus E11.9 Chronic respiratory failure with hypoxia and hypercapnia J96.11; J96.12 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
[2021-10-11] MEDS: traMADol HCL 50 MG TABLET PO PRN (16:28)
[2021-10-11] MEDS: CARBOHYDRATES FOR HYPOGLYCEMIA PO PRN (16:54)
[2021-10-11] MEDS: ACETAMINOPHEN 325 MG TAB PO PRN (19:50)
[2021-10-11] MEDS: MONTELUKAST SODIUM 10 MG TABLET PO SCH (20:04)
[2021-10-11] MEDS: ATORVASTATIN 10 MG TAB PO SCH (20:04)
[2021-10-11] MEDS: QUEtiapine FUMARATE 25 MG TABLET PO SCH (20:04)
[2021-10-11] MEDS: APIXABAN 2.5 MG TAB PO SCH (20:12)
[2021-10-11] MEDS ORDERED: STOP ORDER: HEPARIN ONE (21:00)
[2021-10-11 21:33] LABS: Partial Thromboplastin Ratio 2.5
[2021-10-11 21:39] LABS: Partial Thromboplastin Time 66.2 Seconds (21.0-31.0)
[2021-10-12] MEDS: traMADol HCL 50 MG TABLET PO PRN ×2 (00:31→23:52)
[2021-10-12 07:45] LABS: Partial Thromboplastin Time 25.6 Seconds (21.0-31.0)
[2021-10-12] MEDS: PANTOprazole 40 MG TAB PO SCH (07:57)
[2021-10-12] MEDS: IRON POLYSACCHARIDE COMPLEX 150 MG CAPSULE PO SCH (07:57)
[2021-10-12] MEDS: APIXABAN 2.5 MG TAB PO SCH ×2 (07:57→20:34)
[2021-10-12] MEDS: ASPIRIN 81 MG ECTAB PO SCH (07:57)
[2021-10-12] MEDS: CALCIUM 600MG + VIT D 400 IU TAB PO SCH (07:57)
[2021-10-12] MEDS: amLODIPine BESYLATE 5 MG TAB PO SCH (07:57)
[2021-10-12] MEDS: CHOLECALCIFEROL 5,000 UNITS 125 MCG TAB PO SCH (07:57)
[2021-10-12] MEDS: FUROSEMIDE 20 MG TAB PO SCH (07:57)
[2021-10-12 07:58] LABS: Basophils # (auto) 0.02 K/uL (0-0.2); Basophils % (auto) 0.2 %; Eosinophils # (auto) 0.34 K/uL (0-0.5); Eosinophils % (auto) 3.5 %; Hematocrit (blood only) 37.4 % (37-47); Hemoglobin 11.7 g/dL (12.0-16.0); Immature Granulocytes # (auto) 0.02 K/uL (0.00-0.02); Immature Granulocytes % (auto) 0.2 %; Lymphocytes # (auto) 1.99 K/uL (1.2-3.4); Lymphocytes % (auto) 20.4 %; Mean Corpuscular Hemoglobin 28.8 pg (25-34); Mean Corpuscular Hgb Conc 31.3 g/dL (32-36); Mean Corpuscular Volume 92.1 fL (80-100); Monocytes # (auto) 1.02 K/uL (0.11-0.59); Monocytes % (auto) 10.5 %; Neutrophils # (auto) 6.37 K/uL (1.4-6.5); Neutrophils % (auto) 65.2 %; Platelet Count 211 K/uL (130-400); RDW Coefficient of Variation 19.1 % (11.5-14.5); RDW Standard Deviation 64.6 fL (36.4-46.3); Red Blood Count 4.06 M/uL (4.2-5.4); White Blood Count 9.76 K/uL (4.8-10.8)
[2021-10-12] MEDS: FLUTICASONE/VILANTEROL 100/25MCG 14 PUFFS/INHALER INH SCH (07:58)
[2021-10-12] MEDS: INSULIN ASPART PER UNIT SC SCH ×4 (08:04→21:02)
[2021-10-12] MEDS ORDERED: INSULIN GLARGINE SOLOSTAR 100 UNITS/ML 3 ML PEN SC SCH (09:00)
[2021-10-12] MEDS: ACETAMINOPHEN 325 MG TAB PO PRN (11:24)
--- NOTE | 2021-10-12 14:02 | Pharmacy Report ---
Pharmacy Glycemic Short Note 2 - Date of Service October 12, 2021 - Glycemic Short BSG Results (Last 24 hours): 10/11/21 10/11/21 10/11/21 16:50 16:51 17:15 POC Glucose 57 L* 54 L* 113 H 10/11/21 10/12/21 10/12/21 20:35 07:27 11:36 POC Glucose 111 H 144 H 252 H OUTPATIENT ANTIDIABETIC REGIMEN: * Amaryl 1 mg daily * metformin 500 mg BID ASSESSMENT: 10/12: * Pt received total 29 units of insulin yesterday; 15 units of basal and 14 units bolus. * Pt became hypoglycemic around dinner time yesterday. Novolog parameters loosened this AM. * Fasting BSG today was 144 mg/dl today. Reduced basal Lantus dose further today. 10/10/21: * Ms Saucedo is an 85 y/o F with a PMH of T2DM who presents with headache. She was given Solu-Medrol 60 mg IV x 1 @0134 * Fasting BSG was 188 mg/dL. * Start Lantus 25 units x 1 (0.25 units/kg) to help accommodate steroid hyperglycemia. * Lantus scale for tomorrow morning. * Novolog weight-based stress of 3. Loosen this to weight-based stress of 2 at dinnertime as expect steroid hyperglycemia to not be as great. PLAN FOR INPATIENT GLYCEMIC CONTROL: * Hold outpatient oral diabetes medications * Basal insulin * Lantus 10 units SQ QAM. Re-assess tomorrow AM. * Bolus insulin * NovoLog per scale ACHS or Q6hrs while NPO * Goal Range: Low 110 mg/dL - High 140 mg/dL * Correction Factor: 25 mg/dL/unit * Nutritional / Prandial insulin per carb ratio of 1 unit per 7 grams CHO consumed PLAN FOR DISCHARGE: * HbA1C = 6.6% on 10/10/21 * Goal A1c is less than 8% in this patient given her age and co-morbidities. A1c of 6.6% indicates that she is a well controlled diabetic at home with only oral anti-diabetic meds. * Recommend continue current meds (Metformin 500 mg BID with meals and Amaryl 1 mg daily with a meal) on discharge as long as patient is not reporting hypoglycemia at home.
[2021-10-12 17:55] LABS: Appearance Urine Clear (Clear); Bacteria Urine Automated Negative (Negative); Bilirubin Urine Negative (Negative); Blood Urine Negative (Negative); Color Urine Yellow; Epithelial Cell Urine Auto >30 /lpf (0-5); Glucose Urine UA Negative (Negative); Ketones Urine Negative (Negative); Leukocyte Esterase Urine 1+ (Negative); Nitrite Urine Negative (Negative); Protein Urine Negative (Negative); RBC Urine Automated 0-4 /hpf (0-4); Specific Gravity Urine 1.012 (1.000-1.030); Urobilinogen Urine Negative (Negative)
--- NOTE | 2021-10-12 20:29 | Hospitalist Progress Note ---
Date of Service October 12, 2021 Assessment & Plan (1) Acute embolic stroke: Plan: MRI brain with numerous b/l strokes in the posterior and anterior circulations. This suggests embolic etiology. Thus far no a.fib/flutter on tele. Echo without source of thrombus. Could look at aorta for plaque but defer for now. Due to high likelihood for embolic phenomenon she was empirically anticoagulated with heparin drip followed by Eliquis 2.5mg BID. Also remains on asa 81mg daily. Appreciate neurology consult; PT, OT, speech. (2) Acute encephalopathy: Plan: still present, waxing/waning. likely due to #1 above. check u/a to ensure no other factor contributing to this. check an ammonia level in am. 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 Cont lipitor 10mg daily. (9) Type 2 diabetes mellitus: Plan: HbA1C 6.6% Hold glimepiride Hold metformin basal-bolus insulin regimen per pharmacy glycemic team (10) Chronic respiratory failure with hypoxia and hypercapnia: Plan: stable O2 sats in room air (11) Nausea: Plan: 2nd to aspirin? 2nd to other cause? treat symptoms. follow carefully. LFTs acceptable. (12) DVT prophylaxis: Plan: eliquis 2.5mg BID Admission and Anticipated Discharge Date Admission Date: October 11, 2021 Subjective upon entering the room the patient was confused she was sitting in the chair her first statement was "I don't feel good - my stomach is sick" within a few seconds she c/o nausea I retrieved an emesis basis for her - she ended up not vomiting flowsheets show fair appetite no a.fib on telemetry she realizes she is quite confused - gets frustrated by this can't think of people's names, etc Review of Systems Review of Systems: gen - fatigue, weak; no fever cv - no chest pain pulm - no dyspnea GI - mild upper abdominal pain; nausea, no emesis Physical Exam Physical Exam: gen - sitting in chair, confused, mouth - MMM; UPP surgical changes posterior throat eyes - right-sided homonymous hemianopsia neck - no JVD heart - RRR, s1 s2 lungs - cta b/l abd - soft, NT, ND, BS+ ext - trace edema b/l, pulses 2+ b/l neuro - finger/nose/finger maneuver modest ataxia on left, none on right; no facial droop; strength b/l legs/arms 5/5 Results & Data Results & Data ([facility]) Vital Signs (Past 12 Hours) Vital Signs Temp Pulse Pulse Resp BP Pulse Ox 10/12/21 19:00 36.5 C 72 18 143/89 H 95 10/12/21 16:10 36.5 C 78 19 138/66 91 10/12/21 16:04 80 10/12/21 11:30 36.4 C L 86 16 138/83 91 Laboratory Results Laboratory Results - last 24 hr 10/11/21 10/11/21 10/12/21 20:35 21:05 07:05 WBC 9.76 RBC 4.06 L Hgb 11.7 L Hct 37.4 MCV 92.1 MCH 28.8 MCHC 31.3 L RDW Std Deviation 64.6 H RDW Coeff of Shama 19.1 H Plt Count 211 MPV 10.0 Immature Gran % (Auto) 0.2 Neut % (Auto) 65.2 Lymph % (Auto) 20.4 [place] % (Auto) 10.5 Eos % (Auto) 3.5 Baso % (Auto) 0.2 Neut # (Auto) 6.37 Lymph # (Auto) 1.99 [place] # (Auto) 1.02 H Eos # (Auto) 0.34 Baso # (Auto) 0.02 Immature Gran # (Auto) 0.02 APTT 66.2 H* PTT Ratio 2.5 POC Glucose 111 H Urine Color Urine Appearance Urine pH Ur Specific [place] Urine Protein Urine Glucose (UA) Urine Ketones Urine Blood Urine Nitrite Urine Bilirubin Urine Urobilinogen Ur Leukocyte Esterase Urine WBC (Auto) Urine RBC (Auto) U Hyaline Cast (Auto) U Epithel Cells (Auto) Urine Bacteria (Auto) 10/12/21 10/12/21 10/12/21 07:05 07:27 11:36 WBC RBC Hgb Hct MCV MCH MCHC RDW Std Deviation RDW Coeff of Shama Plt Count MPV Immature Gran % (Auto) Neut % (Auto) Lymph % (Auto) [place] % (Auto) Eos % (Auto) Baso % (Auto) Neut # (Auto) Lymph # (Auto) [place] # (Auto) Eos # (Auto) Baso # (Auto) Immature Gran # (Auto) APTT 25.6 PTT Ratio 1.0 POC Glucose 144 H 252 H Urine Color Urine Appearance Urine pH Ur Specific [place] Urine Protein Urine Glucose (UA) Urine Ketones Urine Blood Urine Nitrite Urine Bilirubin Urine Urobilinogen Ur Leukocyte Esterase Urine WBC (Auto) Urine RBC (Auto) U Hyaline Cast (Auto) U Epithel Cells (Auto) Urine Bacteria (Auto) 10/12/21 10/12/21 16:42 Unknown WBC RBC Hgb Hct MCV MCH MCHC RDW Std Deviation RDW Coeff of Shama Plt Count MPV Immature Gran % (Auto) Neut % (Auto) Lymph % (Auto) [place] % (Auto) Eos % (Auto) Baso % (Auto) Neut # (Auto) Lymph # (Auto) [place] # (Auto) Eos # (Auto) Baso # (Auto) Immature Gran # (Auto) APTT PTT Ratio POC Glucose 90 Urine Color Yellow Urine Appearance Clear Urine pH 6.0 Ur Specific [place] 1.012 Urine Protein Negative Urine Glucose (UA) Negative Urine Ketones Negative Urine Blood Negative Urine Nitrite Negative Urine Bilirubin Negative Urine Urobilinogen Negative Ur Leukocyte Esterase 1+ H Urine WBC (Auto) 5-10 H Urine RBC (Auto) 0-4 U Hyaline Cast (Auto) 1-5 U Epithel Cells (Auto) >30 H Urine Bacteria (Auto) Negative PG Care Time/CCT Total # of Minutes Spent Total Time Spent with Patient: Total time spent is greater than 50% in coordination of care (as documented) at patient's floor/unit and/or counseling patient: Coding Level of Care Code 94013 Subseq Hosp Care Lvl 2 Diagnoses Acute embolic stroke I63.9 Acute encephalopathy G93.40 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
[2021-10-12] MEDS: ATORVASTATIN 10 MG TAB PO SCH (20:35)
[2021-10-12] MEDS: QUEtiapine FUMARATE 25 MG TABLET PO SCH (20:35)
[2021-10-12] MEDS: MONTELUKAST SODIUM 10 MG TABLET PO SCH (20:35)
[2021-10-13] MEDS ORDERED: OLANZapine 10 MG/2.1 ML SDV IM STA (06:18)
[2021-10-13] MEDS: APIXABAN 2.5 MG TAB PO SCH ×2 (08:11→20:43)
[2021-10-13] MEDS: CALCIUM 600MG + VIT D 400 IU TAB PO SCH (08:12)
[2021-10-13] MEDS: amLODIPine BESYLATE 5 MG TAB PO SCH (08:12)
[2021-10-13] MEDS: IRON POLYSACCHARIDE COMPLEX 150 MG CAPSULE PO SCH (08:12)
[2021-10-13] MEDS: ASPIRIN 81 MG ECTAB PO SCH (08:12)
[2021-10-13] MEDS: CHOLECALCIFEROL 5,000 UNITS 125 MCG TAB PO SCH (08:12)
[2021-10-13] MEDS: PANTOprazole 40 MG TAB PO SCH (08:12)
[2021-10-13] MEDS: FUROSEMIDE 20 MG TAB PO SCH (08:13)
[2021-10-13] MEDS: FLUTICASONE/VILANTEROL 100/25MCG 14 PUFFS/INHALER INH SCH (08:13)
[2021-10-13] MEDS: INSULIN ASPART PER UNIT SC SCH ×4 (08:17→20:42)
--- NOTE | 2021-10-13 08:26 | Hospitalist Progress Note ---
Date of Service October 13, 2021 Assessment & Plan (1) Acute embolic stroke: Plan: MRI brain with numerous b/l strokes in the posterior and anterior circulations. (of note prior MRI Jul 2021 admitted for CHF and vertigo following URI, noted white matter hyperintense foci favoring extensive small vessel disease and several old lacunar infarcts noted at that time along with several hypointense foci on gradient echo sequence suggesting trace old blood products) --> This suggests embolic etiology. Thus far no a.fib/flutter on tele -- has been sinus in the 70s this morning, 90s overnight ECHO WITHOUT source of thrombus. Could look at aorta for plaque but defer for now. Due to high likelihood for embolic phenomenon she was empirically anticoagulated with heparin drip followed by Eliquis 2.5mg BID (given will be 86 next month, Cr 1.7) To continue ASA 81mg daily Appreciate neurology consult; PT, OT, speech. --> PT/OT recommending SNF. Alerted CM -- patient with medicare and could likely go to [facility]. to discuss (2) Acute encephalopathy: Plan: still present, waxing/waning. likely due to #1 above. check u/a to ensure no other factor contributing to this. --> UA via straight cath, with 1+ leuk esterase, 5-10 WBC, >30 epi. 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: Plan: see #1 above should have ophtho f/u post-discharge (4) (HFpEF) heart failure with preserved ejection fraction: Plan: no decompensation cont lasix -- slightly dry on exam (wt 96.6kg and appears baseline closer to 97-98kg) and will hold lasix for AM, re-assess volume status prior to resuming and encouraged PO intake (5) Headache: Plan: resolved -- none reported today, also BPs much better controlled likely due to #1 temporal arteritis NOT suspected (6) CKD (chronic kidney disease), stage III: Plan: baseline Cr 1.4 to 1.6 Cr 1.74 and holding lasix for AM, encouraged PO intake BMP in AM for stability (7) Asthma: Plan: no symptoms at this time albuterol prn (8) Hyperlipidemia: Plan: LDL 72. Cont lipitor 10mg daily. (9) Type 2 diabetes mellitus: Plan: HbA1C 6.6% Hold glimepiride Hold metformin basal-bolus insulin regimen per pharmacy glycemic team and able to resume home medications at d/c given good control (10) Chronic respiratory failure with hypoxia and hypercapnia: Plan: stable O2 sats in room air --> previously noted needing 2L NC continuously in July 2021 admission. Of note also had HUMPHREY and received venofer x 2 (negative fecal occult) during that admission. ?2step prior to d/c to ensure no ongoing needs, poppy with ambulation as has been quite well on room air at rest (11) Nausea: Plan: 2nd to aspirin or other cause antiemetics prn No further nausea or feeling like she needs to vomit today 2nd to other cause? follow carefully. LFTs acceptable. (12) DVT prophylaxis: Plan: eliquis 2.5mg BID given going to be 86 next month -- if concern, could increase to 5mg BID then decrease on the , but seems reasonable at this time to continue 2.5mg BID Will need rx at d/c Plan: Intermittent confusion to place/time but easily re-oriented. Urine cx pending but UA did not seem overly infected -- could be from #1 continued inpatient stay PT/OT rec SNF --> CM to discuss options for rehab, patient agreeable Admission and Anticipated Discharge Date Admission Date: October 11, 2021 Supervising Physician Co-Signing Physician Notes Attending Attestation - Chart reviewed in detail, care plan d/w RYAN Brown. I agree with the caballero components of her documentation. Gera Albarran MD Subjective Patient evaluated this afternoon. Sitting up eating beef, carrots, and noodles with iced tea. No further nausea. Not feeling ill. She reported "feeling much better today". No further headache reported. per RN, aides reporting urine still smelling quite foul. urine cx pending at this time. Patient does state she gets frequent UTIs and given abx by PCP but denied any burning or increased frequency. Discussed holding off and monitoring culture. Still with confusion at times but easily re-oriented. Stated year 1963 but when discussed 2021, patient shook her head and said "oh yeah, that's right". Lives at [place] but will need some rehab. Discussed will alert CM to see about facilities. Eating/drinking without issue but mouth slightly dry and will hold lasix for AM and encouraged patient to push oral fluids. Review of Systems Review of Systems: All systems reviewed & are unremarkable except as noted in HPI & below Physical Exam Physical Exam: gen - WN, WD, sitting up in bed eating lunch, no acute distress, alert and oriented to person but stated [facility] and year 1963 but once discussed 2021 and [facility], patient stated "that's what I meant" eyes -- R sided homonymous hemianopsia ent- slightly dry mm, trachea midline resp: CTAB, no w/c/r, 97% on RA cv: RRR, no m/r/g, no calf edema, non-tender, pulses palpable gu: +BS, soft, non-tender gi: draining yellow urine skin; warm, dry, neuro: finger/nose/finger with modest ataxia on LEFT, no facial droop appreciated, strength 5/5 b/l psych: aox1, intermittent to place/time but easily re-oriented Results & Data Results & Data ([facility]) Vital Signs (Past 12 Hours) Vital Signs Temp Pulse Pulse Resp BP Pulse Ox 10/13/21 07:31 36.6 C 72 20 158/85 H 90 10/13/21 07:00 65 10/13/21 02:12 37.1 C 64 18 158/83 H 90 10/13/21 01:04 78 10/12/21 23:00 37 C 69 18 131/78 94 Laboratory Results 10/13/21 10/13/21 10/13/21 Range/Units 11:01 11:01 08:49 Sodium 136 (136-145) mmol/L Potassium 4.6 (3.5-5.1) mmol/L Chloride 98 (98-107) mmol/L Carbon Dioxide 32 (21-32) mmol/L Anion Gap 6.0 (3-11) BUN 28 H (7-18) mg/dl Creatinine 1.74 H (0.6-1.2) mg/dl Est Cr Clr Drug Dosing 27.2 ml/min Est GFR ( Amer) 30.7 ml/min Est GFR (Non-Af Amer) 26.5 ml/min BUN/Creatinine Ratio 16.0 (10-20) Glucose 153 H (70-99) mg/dl POC Glucose (70-99) mg/dl Calcium 9.8 (8.5-10.1) mg/dl Ammonia 14.4 Cancelled Urine Color Urine Appearance (Clear) Urine pH (4.5-7.5) Ur Specific [place] (1.000-1.030) Urine Protein (Negative) Urine Glucose (UA) (Negative) Urine Ketones (Negative) Urine Blood (Negative) Urine Nitrite (Negative) Urine Bilirubin (Negative) Urine Urobilinogen (Negative) Ur Leukocyte Esterase (Negative) Urine WBC (Auto) (0-5) /hpf Urine RBC (Auto) (0-4) /hpf U Hyaline Cast (Auto) (0-5) /lpf U Epithel Cells (Auto) (0-5) /lpf Urine Bacteria (Auto) (Negative) 10/13/21 10/12/21 10/12/21 Range/Units 07:19 Unknown 20:31 Sodium (136-145) mmol/L Potassium (3.5-5.1) mmol/L Chloride (98-107) mmol/L Carbon Dioxide (21-32) mmol/L Anion Gap (3-11) BUN (7-18) mg/dl Creatinine (0.6-1.2) mg/dl Est Cr Clr Drug Dosing ml/min Est GFR ( Amer) ml/min Est GFR (Non-Af Amer) ml/min BUN/Creatinine Ratio (10-20) Glucose (70-99) mg/dl POC Glucose 163 H 115 H (70-99) mg/dl Calcium (8.5-10.1) mg/dl Ammonia Urine Color Yellow Urine Appearance Clear (Clear) Urine pH 6.0 (4.5-7.5) Ur Specific [place] 1.012 (1.000-1.030) Urine Protein Negative (Negative) Urine Glucose (UA) Negative (Negative) Urine Ketones Negative (Negative) Urine Blood Negative (Negative) Urine Nitrite Negative (Negative) Urine Bilirubin Negative (Negative) Urine Urobilinogen Negative (Negative) Ur Leukocyte Esterase 1+ H (Negative) Urine WBC (Auto) 5-10 H (0-5) /hpf Urine RBC (Auto) 0-4 (0-4) /hpf U Hyaline Cast (Auto) 1-5 (0-5) /lpf U Epithel Cells (Auto) >30 H (0-5) /lpf Urine Bacteria (Auto) Negative (Negative) 10/12/21 Range/Units 16:42 Sodium (136-145) mmol/L Potassium (3.5-5.1) mmol/L Chloride (98-107) mmol/L Carbon Dioxide (21-32) mmol/L Anion Gap (3-11) BUN (7-18) mg/dl Creatinine (0.6-1.2) mg/dl Est Cr Clr Drug Dosing ml/min Est GFR ( Amer) ml/min Est GFR (Non-Af Amer) ml/min BUN/Creatinine Ratio (10-20) Glucose (70-99) mg/dl POC Glucose 90 (70-99) mg/dl Calcium (8.5-10.1) mg/dl Ammonia Urine Color Urine Appearance (Clear) Urine pH (4.5-7.5) Ur Specific [place] (1.000-1.030) Urine Protein (Negative) Urine Glucose (UA) (Negative) Urine Ketones (Negative) Urine Blood (Negative) Urine Nitrite (Negative) Urine Bilirubin (Negative) Urine Urobilinogen (Negative) Ur Leukocyte Esterase (Negative) Urine WBC (Auto) (0-5) /hpf Urine RBC (Auto) (0-4) /hpf U Hyaline Cast (Auto) (0-5) /lpf U Epithel Cells (Auto) (0-5) /lpf Urine Bacteria (Auto) (Negative) PG Care Time/CCT Total # of Minutes Spent Total Time Spent with Patient: Total time spent is greater than 50% in coordination of care (as documented) at patient's floor/unit and/or counseling patient: Coding Level of Care Code 38382 Subseq Hosp Care Lvl 2 Diagnoses Acute embolic stroke I63.9 Acute encephalopathy G93.40 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
--- NOTE | 2021-10-13 08:51 | Pharmacy Report ---
Pharmacy Glycemic Short Note 2 - Date of Service October 13, 2021 - Glycemic Short BSG Results (Last 24 hours): 10/12/21 10/12/21 10/12/21 11:36 16:42 20:31 POC Glucose 252 H 90 115 H 10/13/21 07:19 POC Glucose 163 H OUTPATIENT ANTIDIABETIC REGIMEN: * Amaryl 1 mg daily * metformin 500 mg BID * HbA1c: 6.6% (10/10/21) ASSESSMENT: 10/13: * BSGs yesterday, 144, 252, 90, and 115 mg/dL * Received 10 units of Lantus and 13 units of Novolog yesterday * Given downward trend later in the day, will maintain tighter Novolog parameters at breakfast and loosen thereafter * Fasting BSG of 163 mg/dL - will increase basal ~20% from yesterday 10/12: * Pt received total 29 units of insulin yesterday; 15 units of basal and 14 units bolus. * Pt became hypoglycemic around dinner time yesterday. Novolog parameters loosened this AM. * Fasting BSG today was 144 mg/dl today. Reduced basal Lantus dose further today. 10/10/21: * Ms Saucedo is an 85 y/o F with a PMH of T2DM who presents with headache. She was given Solu-Medrol 60 mg IV x 1 @0134 * Fasting BSG was 188 mg/dL. * Start Lantus 25 units x 1 (0.25 units/kg) to help accommodate steroid hyperglycemia. * Lantus scale for tomorrow morning. * Novolog weight-based stress of 3. Loosen this to weight-based stress of 2 at dinnertime as expect steroid hyperglycemia to not be as great. PLAN FOR INPATIENT GLYCEMIC CONTROL: * Hold outpatient oral diabetes medications * Basal insulin - increase 20% * Lantus 12 units SQ QAM. * Bolus insulin * NovoLog per scale ACHS or Q6hrs while NPO * Goal Range: Low 110 mg/dL - High 140 mg/dL at breakfast, 120-150 mg/dL with lunch, dinner, and HS * Correction Factor: 20 mg/dL/unit with breakfast, 30 mg//dL/unit with lunch, dinner, and HS * Nutritional / Prandial insulin per carb ratio of 1 unit per 7 grams CHO consumed, 1 unit per 8 grams CHO consumed with lunch, dinner, HS PLAN FOR DISCHARGE: * HbA1C = 6.6% on 10/10/21 * Goal A1c is less than 8% in this patient given her age and co-morbidities. A1c of 6.6% indicates that she is a well controlled diabetic at home with only oral anti-diabetic meds. * Recommend continue current meds (Metformin 500 mg BID with meals and Amaryl 1 mg daily with a meal) on discharge as long as patient is not reporting hypoglycemia at home.
[2021-10-13] MEDS ORDERED: INSULIN GLARGINE SOLOSTAR 100 UNITS/ML 3 ML PEN SC SCH (09:00)
[2021-10-13 12:06] LABS: Calcium 9.8 mg/dl (8.5-10.1); Creatinine Clr Calc Pharmacy 27.2 ml/min; Est GFR (African American) 30.7 ml/min; Est GFR (Non-African American) 26.5 ml/min; Potassium 4.6 mmol/L (3.5-5.1)
[2021-10-13] MEDS ORDERED: QUEtiapine FUMARATE 25 MG TABLET PO ONE (17:24)
[2021-10-13] MEDS: ACETAMINOPHEN 325 MG TAB PO PRN (19:33)
[2021-10-13] MEDS: MONTELUKAST SODIUM 10 MG TABLET PO SCH (20:43)
[2021-10-13] MEDS: ATORVASTATIN 10 MG TAB PO SCH (20:43)
[2021-10-13] MEDS: QUEtiapine FUMARATE 25 MG TABLET PO SCH (20:44)
[2021-10-13] MEDS ORDERED: OLANZapine 10 MG/2.1 ML SDV IM PRN (23:05)
[2021-10-14 06:55] LABS: Basophils # (auto) 0.02 K/uL (0-0.2); Basophils % (auto) 0.2 %; Eosinophils # (auto) 0.08 K/uL (0-0.5); Eosinophils % (auto) 0.6 %; Hematocrit (blood only) 40.7 % (37-47); Hemoglobin 12.8 g/dL (12.0-16.0); Immature Granulocytes # (auto) 0.03 K/uL (0.00-0.02); Immature Granulocytes % (auto) 0.2 %; Lymphocytes # (auto) 2.01 K/uL (1.2-3.4); Lymphocytes % (auto) 15.9 %; Mean Corpuscular Hemoglobin 28.9 pg (25-34); Mean Corpuscular Hgb Conc 31.4 g/dL (32-36); Mean Corpuscular Volume 91.9 fL (80-100); Mean Platelet Volume 10.1 fL (7.4-10.4); Monocytes # (auto) 1.17 K/uL (0.11-0.59); Monocytes % (auto) 9.2 %; Neutrophils # (auto) 9.37 K/uL (1.4-6.5); Neutrophils % (auto) 73.9 %; Platelet Count 278 K/uL (130-400); RDW Coefficient of Variation 18.4 % (11.5-14.5); Red Blood Count 4.43 M/uL (4.2-5.4); White Blood Count 12.68 K/uL (4.8-10.8)
[2021-10-14 07:29] LABS: BUN Creatinine Ratio 16.2 (10-20); Calcium 10.4 mg/dl (8.5-10.1); Creatinine Clr Calc Pharmacy 26.4 ml/min; Est GFR (Non-African American) 25.9 ml/min; Potassium 3.7 mmol/L (3.5-5.1)
[2021-10-14 07:43] LABS: Thyroid Stimulating Hormone 0.547 uIu/ml (0.300-4.500)
--- NOTE | 2021-10-14 08:03 | Hospitalist Progress Note ---
Date of Service October 14, 2021 Assessment & Plan (1) Acute embolic stroke: Plan: MRI brain with numerous b/l strokes in the posterior and anterior circulations. (of note prior MRI Jul 2021 admitted for CHF and vertigo following URI, noted white matter hyperintense foci favoring extensive small vessel disease and several old lacunar infarcts noted at that time along with several hypointense foci on gradient echo sequence suggesting trace old blood products) ECHO WITHOUT source of thrombus. Could look at aorta for plaque but defer for now. --> This suggests embolic etiology. Thus far no a.fib/flutter on tele -- has been sinus in the 70s this morning, 90s overnight 10/13 , however increased confusion/agitation and was given olanzapine 5mg IM (as well as 12.5mg of seroquel in addition to her prior 50mg she typically takes) Due to high likelihood for embolic phenomenon she was empirically anticoagulated with heparin drip followed by Eliquis 2.5mg BID (given will be 86 next month, Cr 1.7) To continue ASA 81mg daily Appreciate neurology consult; PT, OT, speech. --> PT/OT recommending SNF. Alerted CM -- patient with medicare and could likely go to [facility]. CM to discuss (2) Acute encephalopathy: Plan: still present, waxing/waning. likely due to #1 above. check u/a to ensure no other factor contributing to this. --> UA via straight cath, with 1+ leuk esterase, 5-10 WBC, >30 epi. Cx pending --> more than 3 types, all low counts. Patient did endorse UTIs in the past but no symptoms currently Ammonia wnl likely due to #1 * -- patient reportedly feeling much better today and outside of orientation questions, which she does seem somewhat frustrated when getting something wrong and is easily re-oriented. DID HAVE SOME INCREASED CONFUSION THIS MORNING BUT GIVEN EXTRA SEROQUEL + ZYPREXA IM OVERNIGHT 10/14 * --> WOULD AVOID ADDITIONAL ANTIPSYCHOTICS if possible * No new focal deficit to warrant repeat head imaging at this time Increased confusion/agitation overnight and was given 12.5mg extra Seroquel (typically on 50mg) and then given 5mg IM Olanzapine by overnight resident --> WBC elevated today and will check CXR/repeat UA given prior infxns and significantly increased confusion --> CXR no acute process. UA pending but suspect 2nd to elevated Ca * Ca 10.4 today. * Will check Vit D level. Hold ca/vit d supplementation in the meantime * Started IVF NS@80cc/hr. Hold amlodipine Vitamin D elevated to 106.7 -- stopped Vit D/calcium supplementation. holding amlodipine. IVF as above (3) Hypercalcemia: Plan: Elevated to 10.4 on AM labs. Of note prior bordeline but albumin had been on lower side could also be contributing to confusion previously with vitamin d deficiency and on 5000IU supplementation daily along with ca+Vd --> Vit D level checked --> ELEVATED TO 106 STOPPING VIT D / CA supplementation -- would discontinue at discharge Amlodipine on hold as above, on IVF for correction. Lasix held given elevated Ca. Monitor labs in AM (4) Hypertension: Plan: On lasix 20mg and lisinopril 20mg BID Held on admission given CVA, lasix since resumed but given elevated Cr again placed on hold IVF for elevated Cr/hypercalcemia. 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: Plan: see #1 above should have ophtho f/u post-discharge (6) (HFpEF) heart failure with preserved ejection fraction: Plan: no decompensation cont lasix -- slightly dry on exam (wt 96.6kg and appears baseline closer to 97 -98kg) and will hold lasix for AM, re-assess volume status prior to resuming and encouraged PO intake continue to hold lasix, lisinopril resumed (hx pulmonary HTN, stable on RA but prior on 2L NC continuously but stable currently on RA) IVF as above Continue to monitor (7) Headache: Plan: resolved -- none reported today, also BPs much better controlled likely due to #1 temporal arteritis NOT suspected (8) CKD (chronic kidney disease), stage III: Plan: baseline Cr 1.4 to 1.6 Cr 1.77 and holding lasix for AM, encouraged PO intake (poor last evening through today). Start IVF as above Monitor BMP (9) Asthma: Plan: no symptoms at this time albuterol prn (10) Hyperlipidemia: Plan: LDL 72. Cont lipitor 10mg daily. (11) Type 2 diabetes mellitus: Plan: HbA1C 6.6% Hold glimepiride Hold metformin basal-bolus insulin regimen per pharmacy glycemic team and able to resume home medications at d/c given good control (12) Chronic respiratory failure with hypoxia and hypercapnia: Plan: stable O2 sats in room air --> previously noted needing 2L NC continuously in July 2021 admission. Of note also had HUMPHREY and received venofer x 2 (negative fecal occult) during that admission. ?2step prior to d/c to ensure no ongoing needs, poppy with ambulation as has been quite well on room air at rest (13) Nausea: Plan: 2nd to aspirin or other cause antiemetics prn No further nausea or feeling like she needs to vomit 10/13 but did have some nausea 10/14 reported. Working on bowel regimen. +BS. Also tx of hypercalcemia as above LFT acceptable Continue to monitor (14) DVT prophylaxis: Plan: eliquis 2.5mg BID given going to be 86 next month -- if concern, could increase to 5mg BID then decrease on the , but seems reasonable at this time to continue 2.5mg BID. Will need rx at d/c Plan: Intermittent confusion to place/time but easily re-oriented, increased confusion today from hypercalcemia as well as additional antipsychotic administered for agitation overnight UA pending IVF for hypercalcemia D/c Vit D/calcium supplementations PTOT rec SNF --> CM following. Able to d/c to [facility] tomorrow if stable. They will need to eval/determine if able to return to [facility] pending progress at rehab vs [facility] [place] [facility] Updated LOURDES Price via phone this morning Admission and Anticipated Discharge Date Admission Date: October 11, 2021 Supervising Physician Co-Signing Physician Notes Attending Attestation - Chart reviewed in detail, care plan d/w RYAN Brown. I agree with the [place]allero components of her documentation. Patient with ongoing confusion. Unfortunately had a fall today without apparent injury. Agree with repeat head CT - r/o ICH, r/o hemorrhagic conversion of prior strokes. If confusion persists consider psych consult for medication management assistance. Gera Albarran MD Subjective eval this morning with confusion/hallucinations at times, thinking railing wooden and couldn't get it up got dose of seroquel 12.5mg x 1 additional last evening and then Zyprexa by overnight resident cooperative and not agitated today discussed [facility] not option and will need to look at [facility] for short term rehab. she notes she is on Vit D/calcium supplementation at [facility] and discussed elevated calcium and now Vit D elevated and will stop both of these and provide IVF. She does endorse a slight headache today, asking for tylenol. No fever, chills, chest pain, shortness of breath at this time. Not much of an appetite. +BS but had small BM 10/12 but nothing substatial since 10/10. Asked RN to give miralax/senna now and continue to monitor. Discussed will update "magnolia" and patient corrected me in saying "you mean Dee"? which is actually the name of her POA, Dee. Dee updated by phone regarding plan/elevated Ca and possible [facility] tomorrow if labs improved and patient closer to baseline once calcium corrected. Questions/concerns addressed. Review of Systems Review of Systems: All systems reviewed & are unremarkable except as noted in HPI & below Physical Exam Physical Exam: gen - WN, WD, getting up out of chair to readjust herself and the blind to see out the window. Alert and oriented to person, place(at times) but not time. stated the wooden bed railing difficult to get down. cooperative and pleasantly confused. eyes -- R sided homonymous hemianopsia ent- slightly dry mm, trachea midline resp: CTAB, no w/c/r, on RA cv: RRR, no m/r/g, no calf edema, non-tender, pulses palpable gu: +BS, soft, non-tender skin; warm, dry, neuro: finger/nose/finger with modest ataxia on LEFT, no facial droop appreciated, strength 5/5 b/l psych: aox1, intermittent to place/time but easily re-oriented Results & Data Results & Data ([facility]) Vital Signs (Past 12 Hours) Vital Signs Temp Pulse Pulse Resp BP Pulse Ox 10/14/21 07:52 36.8 C 102 H 18 184/90 H 93 10/14/21 04:00 36.6 C 76 18 152/78 H 95 10/14/21 01:28 81 10/13/21 23:14 36.4 C L 81 18 126/79 92 10/13/21 20:12 36.5 C 70 18 125/70 93 Laboratory Results 10/14/21 10/14/21 10/14/21 Range/Units 07:43 06:24 06:24 WBC 12.68 H (4.8-10.8) K/uL RBC 4.43 (4.2-5.4) M/uL Hgb 12.8 (12.0-16.0) g/dL Hct 40.7 (37-47) % MCV 91.9 (80-100) fL MCH 28.9 (25-34) pg MCHC 31.4 L (32-36) g/dL RDW Std Deviation 62.0 H (36.4-46.3) fL RDW Coeff of Shama 18.4 H (11.5-14.5) % Plt Count 278 (130-400) K/uL MPV 10.1 (7.4-10.4) fL Immature Gran % (Auto) 0.2 % Neut % (Auto) 73.9 % Lymph % (Auto) 15.9 % [place] % (Auto) 9.2 % Eos % (Auto) 0.6 % Baso % (Auto) 0.2 % Neut # (Auto) 9.37 H (1.4-6.5) K/uL Lymph # (Auto) 2.01 (1.2-3.4) K/uL [place] # (Auto) 1.17 H (0.11-0.59) K/uL Eos # (Auto) 0.08 (0-0.5) K/uL Baso # (Auto) 0.02 (0-0.2) K/uL Immature Gran # (Auto) 0.03 H (0.00-0.02) K/uL Sodium (136-145) mmol/L Potassium (3.5-5.1) mmol/L Chloride (98-107) mmol/L Carbon Dioxide (21-32) mmol/L Anion Gap (3-11) BUN (7-18) mg/dl Creatinine (0.6-1.2) mg/dl Est Cr Clr Drug Dosing ml/min Est GFR ( Amer) ml/min Est GFR (Non-Af Amer) ml/min BUN/Creatinine Ratio (10-20) Glucose (70-99) mg/dl POC Glucose 167 H (70-99) mg/dl Calcium (8.5-10.1) mg/dl Ammonia Vitamin B12 > 2000 H (193-986) pg/ml TSH (0.300-4.500) uIu/ml 10/14/21 10/13/21 10/13/21 Range/Units 06:24 20:25 16:34 WBC (4.8-10.8) K/uL RBC (4.2-5.4) M/uL Hgb (12.0-16.0) g/dL Hct (37-47) % MCV (80-100) fL MCH (25-34) pg MCHC (32-36) g/dL RDW Std Deviation (36.4-46.3) fL RDW Coeff of Shama (11.5-14.5) % Plt Count (130-400) K/uL MPV (7.4-10.4) fL Immature Gran % (Auto) % Neut % (Auto) % Lymph % (Auto) % [place] % (Auto) % Eos % (Auto) % Baso % (Auto) % Neut # (Auto) (1.4-6.5) K/uL Lymph # (Auto) (1.2-3.4) K/uL [place] # (Auto) (0.11-0.59) K/uL Eos # (Auto) (0-0.5) K/uL Baso # (Auto) (0-0.2) K/uL Immature Gran # (Auto) (0.00-0.02) K/uL Sodium 136 (136-145) mmol/L Potassium 3.7 D (3.5-5.1) mmol/L Chloride 99 (98-107) mmol/L Carbon Dioxide 29 (21-32) mmol/L Anion Gap 8.0 (3-11) BUN 29 H (7-18) mg/dl Creatinine 1.77 H (0.6-1.2) mg/dl Est Cr Clr Drug Dosing 26.4 ml/min Est GFR ( Amer) 30.0 ml/min Est GFR (Non-Af Amer) 25.9 ml/min BUN/Creatinine Ratio 16.2 (10-20) Glucose 160 H (70-99) mg/dl POC Glucose 180 H 133 H (70-99) mg/dl Calcium 10.4 H (8.5-10.1) mg/dl Ammonia Vitamin B12 (193-986) pg/ml TSH 0.547 (0.300-4.500) uIu/ml 10/13/21 10/13/21 10/13/21 Range/Units 11:01 11:01 08:49 WBC (4.8-10.8) K/uL RBC (4.2-5.4) M/uL Hgb (12.0-16.0) g/dL Hct (37-47) % MCV (80-100) fL MCH (25-34) pg MCHC (32-36) g/dL RDW Std Deviation (36.4-46.3) fL RDW Coeff of Shama (11.5-14.5) % Plt Count (130-400) K/uL MPV (7.4-10.4) fL Immature Gran % (Auto) % Neut % (Auto) % Lymph % (Auto) % [place] % (Auto) % Eos % (Auto) % Baso % (Auto) % Neut # (Auto) (1.4-6.5) K/uL Lymph # (Auto) (1.2-3.4) K/uL [place] # (Auto) (0.11-0.59) K/uL Eos # (Auto) (0-0.5) K/uL Baso # (Auto) (0-0.2) K/uL Immature Gran # (Auto) (0.00-0.02) K/uL Sodium 136 (136-145) mmol/L Potassium 4.6 (3.5-5.1) mmol/L Chloride 98 (98-107) mmol/L Carbon Dioxide 32 (21-32) mmol/L Anion Gap 6.0 (3-11) BUN 28 H (7-18) mg/dl Creatinine 1.74 H (0.6-1.2) mg/dl Est Cr Clr Drug Dosing 27.2 ml/min Est GFR ( Amer) 30.7 ml/min Est GFR (Non-Af Amer) 26.5 ml/min BUN/Creatinine Ratio 16.0 (10-20) Glucose 153 H (70-99) mg/dl POC Glucose (70-99) mg/dl Calcium 9.8 (8.5-10.1) mg/dl Ammonia 14.4 Cancelled Vitamin B12 (193-986) pg/ml TSH (0.300-4.500) uIu/ml PG Care Time/CCT Total # of Minutes Spent Total Time Spent with Patient: Total time spent is greater than 50% in coordination of care (as documented) at patient's floor/unit and/or counseling patient: Coding Level of Care Code 80625 Subseq Hosp Care Lvl 3 Diagnoses Acute embolic stroke I63.9 Acute encephalopathy G93.40 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
--- NOTE | 2021-10-14 08:40 | XRay Report ---
XR chest 1V portable HISTORY: 85 years-old Female leukocytosis, confusion acutely altered mental status with confusion COMPARISON: Chest radiograph 10/09/2021 TECHNIQUE: Portable AP view of the chest FINDINGS: Cardiomediastinal and hilar silhouettes are unchanged. No pneumothorax, pleural effusion or overt pul monary edema. Unchanged mild interstitial coarsening of the lung bases suggestive of atelectasis vers us scarring. Degenerative changes of the shoulders and spine. IMPRESSION: No acute process. ACT 112: Negative or not required by law. The above report was generated using voice recognition software. It may contain grammatical, syntax o r spelling errors. Electronically signed by: Julio Serrano M.D. 10/14/2021 8:39 AM
[2021-10-14] MEDS: SODIUM CHLORIDE 0.9% 1000ML 1,000 ML IV SCH ×2 (10:00→23:57)
[2021-10-14] MEDS: APIXABAN 2.5 MG TAB PO SCH ×2 (10:17→21:09)
[2021-10-14] MEDS: IRON POLYSACCHARIDE COMPLEX 150 MG CAPSULE PO SCH (10:17)
[2021-10-14] MEDS: ASPIRIN 81 MG ECTAB PO SCH (10:18)
[2021-10-14] MEDS: PANTOprazole 40 MG TAB PO SCH (10:19)
[2021-10-14] MEDS: FLUTICASONE/VILANTEROL 100/25MCG 14 PUFFS/INHALER INH SCH (10:20)
[2021-10-14] MEDS: INSULIN GLARGINE SOLOSTAR 100 UNITS/ML 3 ML PEN SC SCH (10:21)
[2021-10-14] MEDS: INSULIN ASPART PER UNIT SC SCH ×4 (10:35→21:10)
[2021-10-14] MEDS: lisinopril 20 MG TAB PO SCH ×2 (10:51→21:13)
[2021-10-14] MEDS: CARBOHYDRATES FOR HYPOGLYCEMIA PO PRN ×2 (16:56→17:05)
[2021-10-14] MEDS ORDERED: MELATONIN 3 MG TAB PO PRN (18:10)
[2021-10-14] MEDS ORDERED: QUEtiapine FUMARATE 25 MG TABLET PO PRN (18:10)
--- NOTE | 2021-10-14 18:20 | CT Scan Report ---
CT head/brain wo con CLINICAL HISTORY: AMS/confusion, recent cva, ?hemorr conver. fall Technique: Contiguous axial CT images of the head were acquired from the base of the skull to the miles mavis without intravenous contrast administration. Images were viewed in brain, subdural and bone windo ws. Automated dose lowering techniques and/or adjustment according to patient size were utilized for this exam. Comparison: Comparison is made to CT head 10/09/2021 and MRI brain 10/20/2021 Findings: In the interval, there is greater hypodensity in the left occipital lobe compatible with findings on MRI brain. This likely flex edema from evolving infarcts. There is minimal rightward midline shift of approximately 2 mm at the posterior falx. Imaged portions of the paranasal sinuses and mastoid air cells are clear. The orbits appear normal. There are no acute fractures of the calvaria or scalp swelling. 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 Punctate right frontoparietal i nfarct seen on MRI is not seen on today's exam. No evidence of hemorrhagic conversion. ACT 112: Negative or not required by law. Electronically signed by: Moises Gregorio M.D. 10/14/2021 6:19 PM
[2021-10-14] MEDS: ATORVASTATIN 10 MG TAB PO SCH (21:10)
[2021-10-14] MEDS: QUEtiapine FUMARATE 25 MG TABLET PO SCH (21:12)
[2021-10-14] MEDS: MONTELUKAST SODIUM 10 MG TABLET PO SCH (21:13)
[2021-10-15 06:57] LABS: Basophils # (auto) 0.02 K/uL (0-0.2); Basophils % (auto) 0.2 %; Eosinophils # (auto) 0.21 K/uL (0-0.5); Eosinophils % (auto) 1.6 %; Immature Granulocytes # (auto) 0.02 K/uL (0.00-0.02); Immature Granulocytes % (auto) 0.2 %; Lymphocytes # (auto) 2.33 K/uL (1.2-3.4); Lymphocytes % (auto) 18.1 %; Mean Corpuscular Hemoglobin 28.5 pg (25-34); Mean Corpuscular Hgb Conc 30.8 g/dL (32-36); Mean Corpuscular Volume 92.6 fL (80-100); Mean Platelet Volume 9.7 fL (7.4-10.4); Monocytes # (auto) 1.27 K/uL (0.11-0.59); Monocytes % (auto) 9.9 %; Neutrophils # (auto) 8.99 K/uL (1.4-6.5); Platelet Count 293 K/uL (130-400); RDW Coefficient of Variation 18.6 % (11.5-14.5); RDW Standard Deviation 63.6 fL (36.4-46.3); Red Blood Count 4.21 M/uL (4.2-5.4); White Blood Count 12.84 K/uL (4.8-10.8)
[2021-10-15 07:18] LABS: BUN Creatinine Ratio 16.9 (10-20); Calcium 9.5 mg/dl (8.5-10.1); Creatinine Clr Calc Pharmacy 32.9 ml/min; Est GFR (African American) 39.2 ml/min; Est GFR (Non-African American) 33.8 ml/min; Potassium 4.2 mmol/L (3.5-5.1)
--- NOTE | 2021-10-15 07:41 | Hospitalist Progress Note ---
Date of Service October 15, 2021 Assessment & Plan Admission and Anticipated Discharge Date Admission Date: October 11, 2021 Results & Data Results & Data ([facility]) Vital Signs (Past 12 Hours) Vital Signs Temp Pulse Resp BP Pulse Ox 10/15/21 03:07 36.6 C 97 H 20 190/84 H 93 10/14/21 22:48 36.7 C 101 H 20 168/69 H 90 10/14/21 20:04 36.5 C 67 20 185/98 H 94 Laboratory Results 10/15/21 10/15/21 10/15/21 Range/Units 06:42 06:42 06:42 WBC 12.84 H (4.8-10.8) K/uL RBC 4.21 (4.2-5.4) M/uL Hgb 12.0 (12.0-16.0) g/dL Hct 39.0 (37-47) % MCV 92.6 (80-100) fL MCH 28.5 (25-34) pg MCHC 30.8 L (32-36) g/dL RDW Std Deviation 63.6 H (36.4-46.3) fL RDW Coeff of Shama 18.6 H (11.5-14.5) % Plt Count 293 (130-400) K/uL MPV 9.7 (7.4-10.4) fL Immature Gran % (Auto) 0.2 % Neut % (Auto) 70.0 % Lymph % (Auto) 18.1 % [place] % (Auto) 9.9 % Eos % (Auto) 1.6 % Baso % (Auto) 0.2 % Neut # (Auto) 8.99 H (1.4-6.5) K/uL Lymph # (Auto) 2.33 (1.2-3.4) K/uL [place] # (Auto) 1.27 H (0.11-0.59) K/uL Eos # (Auto) 0.21 (0-0.5) K/uL Baso # (Auto) 0.02 (0-0.2) K/uL Immature Gran # (Auto) 0.02 (0.00-0.02) K/uL Sodium 143 (136-145) mmol/L Potassium 4.2 (3.5-5.1) mmol/L Chloride 104 (98-107) mmol/L Carbon Dioxide 29 (21-32) mmol/L Anion Gap 10 (3-11) BUN 24 H (6-23) mg/dl Creatinine 1.42 H (0.6-1.2) mg/dl Est Cr Clr Drug Dosing 32.9 ml/min Est GFR ( Amer) 39.2 ml/min Est GFR (Non-Af Amer) 33.8 ml/min BUN/Creatinine Ratio 16.9 (10-20) Glucose 155 H (70-99) mg/dl POC Glucose (70-99) mg/dl Calcium 9.5 (8.5-10.1) mg/dl Vitamin B12 (193-986) pg/ml 25-OH Vitamin D Total (30-100) ng/ml Folate Pending TSH (0.300-4.500) uIu/ml PTH Intact (12.0-88.0) pg/ml 10/14/21 10/14/21 10/14/21 Range/Units 20:12 17:14 17:02 WBC (4.8-10.8) K/uL RBC (4.2-5.4) M/uL Hgb (12.0-16.0) g/dL Hct (37-47) % MCV (80-100) fL MCH (25-34) pg MCHC (32-36) g/dL RDW Std Deviation (36.4-46.3) fL RDW Coeff of Shama (11.5-14.5) % Plt Count (130-400) K/uL MPV (7.4-10.4) fL Immature Gran % (Auto) % Neut % (Auto) % Lymph % (Auto) % [place] % (Auto) % Eos % (Auto) % Baso % (Auto) % Neut # (Auto) (1.4-6.5) K/uL Lymph # (Auto) (1.2-3.4) K/uL [place] # (Auto) (0.11-0.59) K/uL Eos # (Auto) (0-0.5) K/uL Baso # (Auto) (0-0.2) K/uL Immature Gran # (Auto) (0.00-0.02) K/uL Sodium (136-145) mmol/L Potassium (3.5-5.1) mmol/L Chloride (98-107) mmol/L Carbon Dioxide (21-32) mmol/L Anion Gap (3-11) BUN (6-23) mg/dl Creatinine (0.6-1.2) mg/dl Est Cr Clr Drug Dosing ml/min Est GFR ( Amer) ml/min Est GFR (Non-Af Amer) ml/min BUN/Creatinine Ratio (10-20) Glucose (70-99) mg/dl POC Glucose 142 H 89 59 L* (70-99) mg/dl Calcium (8.5-10.1) mg/dl Vitamin B12 (193-986) pg/ml 25-OH Vitamin D Total (30-100) ng/ml Folate TSH (0.300-4.500) uIu/ml PTH Intact (12.0-88.0) pg/ml 10/14/21 10/14/21 10/14/21 Range/Units 16:44 11:42 09:48 WBC (4.8-10.8) K/uL RBC (4.2-5.4) M/uL Hgb (12.0-16.0) g/dL Hct (37-47) % MCV (80-100) fL MCH (25-34) pg MCHC (32-36) g/dL RDW Std Deviation (36.4-46.3) fL RDW Coeff of Shama (11.5-14.5) % Plt Count (130-400) K/uL MPV (7.4-10.4) fL Immature Gran % (Auto) % Neut % (Auto) % Lymph % (Auto) % [place] % (Auto) % Eos % (Auto) % Baso % (Auto) % Neut # (Auto) (1.4-6.5) K/uL Lymph # (Auto) (1.2-3.4) K/uL [place] # (Auto) (0.11-0.59) K/uL Eos # (Auto) (0-0.5) K/uL Baso # (Auto) (0-0.2) K/uL Immature Gran # (Auto) (0.00-0.02) K/uL Sodium (136-145) mmol/L Potassium (3.5-5.1) mmol/L Chloride (98-107) mmol/L Carbon Dioxide (21-32) mmol/L Anion Gap (3-11) BUN (6-23) mg/dl Creatinine (0.6-1.2) mg/dl Est Cr Clr Drug Dosing ml/min Est GFR ( Amer) ml/min Est GFR (Non-Af Amer) ml/min BUN/Creatinine Ratio (10-20) Glucose (70-99) mg/dl POC Glucose 54 L* 207 H (70-99) mg/dl Calcium (8.5-10.1) mg/dl Vitamin B12 (193-986) pg/ml 25-OH Vitamin D Total (30-100) ng/ml Folate TSH (0.300-4.500) uIu/ml PTH Intact 82.1 (12.0-88.0) pg/ml 10/14/21 10/14/21 10/14/21 Range/Units 07:43 06:24 06:24 WBC (4.8-10.8) K/uL RBC (4.2-5.4) M/uL Hgb (12.0-16.0) g/dL Hct (37-47) % MCV (80-100) fL MCH (25-34) pg MCHC (32-36) g/dL RDW Std Deviation (36.4-46.3) fL RDW Coeff of Shama (11.5-14.5) % Plt Count (130-400) K/uL MPV (7.4-10.4) fL Immature Gran % (Auto) % Neut % (Auto) % Lymph % (Auto) % [place] % (Auto) % Eos % (Auto) % Baso % (Auto) % Neut # (Auto) (1.4-6.5) K/uL Lymph # (Auto) (1.2-3.4) K/uL [place] # (Auto) (0.11-0.59) K/uL Eos # (Auto) (0-0.5) K/uL Baso # (Auto) (0-0.2) K/uL Immature Gran # (Auto) (0.00-0.02) K/uL Sodium (136-145) mmol/L Potassium (3.5-5.1) mmol/L Chloride (98-107) mmol/L Carbon Dioxide (21-32) mmol/L Anion Gap (3-11) BUN (6-23) mg/dl Creatinine (0.6-1.2) mg/dl Est Cr Clr Drug Dosing ml/min Est GFR ( Amer) ml/min Est GFR (Non-Af Amer) ml/min BUN/Creatinine Ratio (10-20) Glucose (70-99) mg/dl POC Glucose 167 H (70-99) mg/dl Calcium (8.5-10.1) mg/dl Vitamin B12 > 2000 H (193-986) pg/ml 25-OH Vitamin D Total 106.7 H (30-100) ng/ml Folate TSH (0.300-4.500) uIu/ml PTH Intact (12.0-88.0) pg/ml 10/14/21 Range/Units 06:24 WBC (4.8-10.8) K/uL RBC (4.2-5.4) M/uL Hgb (12.0-16.0) g/dL Hct (37-47) % MCV (80-100) fL MCH (25-34) pg MCHC (32-36) g/dL RDW Std Deviation (36.4-46.3) fL RDW Coeff of Shama (11.5-14.5) % Plt Count (130-400) K/uL MPV (7.4-10.4) fL Immature Gran % (Auto) % Neut % (Auto) % Lymph % (Auto) % [place] % (Auto) % Eos % (Auto) % Baso % (Auto) % Neut # (Auto) (1.4-6.5) K/uL Lymph # (Auto) (1.2-3.4) K/uL [place] # (Auto) (0.11-0.59) K/uL Eos # (Auto) (0-0.5) K/uL Baso # (Auto) (0-0.2) K/uL Immature Gran # (Auto) (0.00-0.02) K/uL Sodium (136-145) mmol/L Potassium (3.5-5.1) mmol/L Chloride (98-107) mmol/L Carbon Dioxide (21-32) mmol/L Anion Gap (3-11) BUN (6-23) mg/dl Creatinine (0.6-1.2) mg/dl Est Cr Clr Drug Dosing ml/min Est GFR ( Amer) ml/min Est GFR (Non-Af Amer) ml/min BUN/Creatinine Ratio (10-20) Glucose (70-99) mg/dl POC Glucose (70-99) mg/dl Calcium (8.5-10.1) mg/dl Vitamin B12 (193-986) pg/ml 25-OH Vitamin D Total (30-100) ng/ml Folate TSH 0.547 (0.300-4.500) uIu/ml PTH Intact (12.0-88.0) pg/ml PG Care Time/CCT Total # of Minutes Spent Total Time Spent with Patient: Total time spent is greater than 50% in coordination of care (as documented) at patient's floor/unit and/or counseling patient: Coding
--- NOTE | 2021-10-15 08:18 | Hospitalist Progress Note ---
Date of Service October 15, 2021 Assessment & Plan (1) Acute encephalopathy: Plan: still present, waxing/waning. likely due to #1 above. sundowning at night and hasn't slept in past 2 days --> seroquel increased to 75mg daily/d/c tele and added melatonin for tonight checked u/a to ensure no other factor contributing to this. --> UA via straight cath, with 1+ leuk esterase, 5-10 WBC, >30 epi. Cx pending --> more than 3 types, all low counts. Patient did endorse UTIs in the past but no symptoms currently and niece said she is acting today (10/15) like she has in past with UTIs Ammonia wnl likely due to acute embolic stroke on admission, however repeat UAs had not shown infection but repeat urine collection rec Repeat CT Head evening 10/14 for fall --> Expected evolutionary changes of left occipital predominant infarcts. Punctate right frontoparietal infarct seen on MRI is not seen on today's exam. No evidence of hemorrhagic conversion. Ca elevated 10.4 on 10/14 and placed on IVF, Vit D elevated and patient had Vit D/Calcium supplementation stopped and Ca normalized on labs today. Holding amlodipine WBC remains elevated 12k, afebrile UA on 10/12 without infection, repeat did not seem infected however increased confusion CXr without acute process Increased confusion yesterday into today, 10/15 (did get zyprexa overnight 10/13 into 10/14 in addition to extra seroquel) Repeat UA requested --> APPEARS ACUTELY INFECTED. START ROCEPHIN MONITOR CX Also obtained KUB given hypoactive BS and no BM since 10/12 but patient denied abd pain on exam --> possible Abnormal radiolucency along the right paracolic gutter suspicious for the presence of free intraperitoneal air. CT of the abdomen and pelvis recommended for further evaluation. -->STAT CTAP for further investigation, +/- general surgery consult (2) Acute embolic stroke: Plan: MRI brain with numerous b/l strokes in the posterior and anterior circulations. (of note prior MRI Jul 2021 admitted for CHF and vertigo following URI, noted white matter hyperintense foci favoring extensive small vessel disease and several old lacunar infarcts noted at that time along with several hypointense foci on gradient echo sequence suggesting trace old blood products) ECHO WITHOUT source of thrombus. Could look at aorta for plaque but defer for now. --> This suggests embolic etiology. Thus far no a.fib/flutter on tele -- has been sinus in the 70s this morning, 90s overnight 10/13 , however increased confusion/agitation and was given olanzapine 5mg IM (as well as 12.5mg of seroquel in addition to her prior 50mg she typically takes) --> increased to 75mg for tonight given Due to high likelihood for embolic phenomenon she was empirically anticoagulated with heparin drip followed by Eliquis 2.5mg BID (given will be 85 next month, Cr 1.7) To continue ASA 81mg daily Appreciate neurology consult; PT, OT, speech. --> PT/OT recommending SNF. Alerted CM -- patient with medicare and could likely go to [facility]. CM to discuss Prior review of chart with elevations in homocystein and MMA (did have B12 def at that time) --> placed on B6/folate as well as her usual B12 , could be contributing to hypercoag state? Regardless, continued on eliquis as above (3) Hypercalcemia: Plan: Elevated to 10.4 on AM labs. Of note prior bordeline but albumin had been on lower side could also be contributing to confusion previously with vitamin d deficiency and on 5000IU supplementation daily along with ca+Vd --> Vit D level checked --> ELEVATED TO 106 STOPPING VIT D / CA supplementation -- would discontinue at discharge Amlodipine on hold as above, on IVF for correction since completed and repeat Cr wnl Continue to monitor (4) Hypertension: Plan: On lasix 20mg and lisinopril 20mg BID Held on admission given CVA, lasix since resumed but given elevated Cr again placed on hold IVF for elevated Cr/hypercalcemia. 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: Plan: see #1 above should have ophtho f/u post-discharge (6) (HFpEF) heart failure with preserved ejection fraction: Plan: no decompensation cont lasix -- slightly dry on exam (wt 96.6kg and appears baseline closer to 97-98kg) and will hold lasix for AM, re-assess volume status prior to resuming and encouraged PO intake Lisinopril resumed (hx pulmonary HTN, stable on RA but prior on 2L NC continuously but stable currently on RA) IVF as above, since completed Held lasix given elevated Cr but since resume as at baseline Continue to monitor (7) Headache: Plan: resolved -- none reported 10/14 but did have slight headache today likely due to #1, and fall temporal arteritis NOT suspected (8) CKD (chronic kidney disease), stage III: Plan: baseline Cr 1.4 to 1.6 Cr 1.4 with IVF as above Continue to Monitor (9) Asthma: Plan: no symptoms at this time -- did have some wheezing and will ask rn to admin albuterol albuterol prn (10) Hyperlipidemia: Plan: LDL 72. Cont lipitor 10mg daily. (11) Type 2 diabetes mellitus: Plan: HbA1C 6.6% Hold glimepiride Hold metformin basal-bolus insulin regimen per pharmacy glycemic team and able to resume home medications at d/c given good control Did have hypoglycemia evening 10/14 as pharmacy increased dosing , since adjusted and no further episodes (12) Chronic respiratory failure with hypoxia and hypercapnia: Plan: stable O2 sats in room air --> previously noted needing 2L NC continuously in July 2021 admission. Of note also had HUMPHREY and received venofer x 2 (negative fecal occult) during that admission. ?2step prior to d/c to ensure no ongoing needs, poppy with ambulation as has been quite well on room air at rest (13) Nausea: Plan: 2nd to aspirin or other cause antiemetics prn No further nausea or feeling like she needs to vomit 10/13 but did have some nausea 10/14 reported. Working on bowel regimen. +BS. Also tx of hypercalcemia as above LFT acceptable Continue to monitor KUB with possible free air Stat CT pending as above No nausea reported today but not much appetite (14) DVT prophylaxis: Plan: eliquis 2.5mg BID given going to be 86 next month -- if concern, could increase to 5mg BID then decrease on the , but seems reasonable at this time to continue 2.5mg BID. Will need rx at d/c Plan: From [facility], to go to [facility] when medically stable Continued inpatient stat, CTAP pending as above Admission and Anticipated Discharge Date Admission Date: October 11, 2021 Supervising Physician Co-Signing Physician Notes Attending Attestation - Chart reviewed in detail, care plan d/w RYAN Brown. I agree with the caballero components of her documentation. Patient with ongoing confusion - u/a today highly suspicious for UTI - will start IV antibiotics. Repeat head CT yesterday without ICH or other acute findings. Treat the delirium and UTI. Gera Albarran MD Subjective patient evaluated this morning overnight -- to increase the Seroquel to 75mg tonight. patient states she has not slept in several days, possibly a couple hours. hallucinating at times -- pulled the blind up and instructed to have better sleep/wake schedules. last real BM reported 10/12. Working on BM. She denies any abd pain or nausea today. Had a headache this morning, states it is improving. Some tightness to chest but no shortness of breath,. Stated year 1964, and that she is at the [facility], but then other random names. When asked if [facility] rang a cooney, she said "oh yeah, that's right" and then laughed. Discussed d/c tele and would move to room with better view if possible. Not to return to [facility] today until sleep/wake schedule improved. RN to obtain repeat UA. Discussed with student nursing staff and encouraged collection if able to complete. Updated POA of plan of care. Questions/concerns addressed at this time. Review of Systems Review of Systems: All systems reviewed & are unremarkable except as noted in HPI & below Physical Exam Physical Exam: gen - WN, WD, in bed, no acute distress. 1:1 at bedside. +hallucinations. alert to person/occassionally place but gets name wrong. states it is 1964 eyes -- R sided homonymous hemianopsia ent- mmm, trachea midline resp: diminished in the bases, faint end exp wheezing, on room air cv: RRR, no m/r/g, no calf edema, non-tender, pulses palpable gu: hypoactive BS, soft, non-tender, no guarding skin; warm, dry neuro: finger/nose/finger with modest ataxia on LEFT, no facial droop appreciated, strength 5/5 b/l psych: aox1, intermittent to place/time but easily re-oriented Results & Data Results & Data ([facility]) Vital Signs (Past 12 Hours) Vital Signs Temp Pulse Resp BP Pulse Ox 10/15/21 03:07 36.6 C 97 H 20 190/84 H 93 10/14/21 22:48 36.7 C 101 H 20 168/69 H 90 Laboratory Results 10/15/21 10/15/21 10/15/21 Range/Units 12:20 11:24 07:40 WBC (4.8-10.8) K/uL RBC (4.2-5.4) M/uL Hgb (12.0-16.0) g/dL Hct (37-47) % MCV (80-100) fL MCH (25-34) pg MCHC (32-36) g/dL RDW Std Deviation (36.4-46.3) fL RDW Coeff of Shama (11.5-14.5) % Plt Count (130-400) K/uL MPV (7.4-10.4) fL Immature Gran % (Auto) % Neut % (Auto) % Lymph % (Auto) % [place] % (Auto) % Eos % (Auto) % Baso % (Auto) % Neut # (Auto) (1.4-6.5) K/uL Lymph # (Auto) (1.2-3.4) K/uL [place] # (Auto) (0.11-0.59) K/uL Eos # (Auto) (0-0.5) K/uL Baso # (Auto) (0-0.2) K/uL Immature Gran # (Auto) (0.00-0.02) K/uL Sodium (136-145) mmol/L Potassium (3.5-5.1) mmol/L Chloride (98-107) mmol/L Carbon Dioxide (21-32) mmol/L Anion Gap (3-11) BUN (6-23) mg/dl Creatinine (0.6-1.2) mg/dl Est Cr Clr Drug Dosing ml/min Est GFR ( Amer) ml/min Est GFR (Non-Af Amer) ml/min BUN/Creatinine Ratio (10-20) Glucose (70-99) mg/dl POC Glucose 149 H 140 H (70-99) mg/dl Calcium (8.5-10.1) mg/dl Albumin (3.4-5.0) gm/dl Folate (>5.38) ng/ml Urine Color Yellow Urine Appearance Cloudy A (Clear) Urine pH 7.0 (4.5-7.5) Ur Specific [place] 1.015 (1.000-1.030) Urine Protein 1+ H (Negative) Urine Glucose (UA) Negative (Negative) Urine Ketones Trace H (Negative) Urine Blood 1+ H (Negative) Urine Nitrite Negative (Negative) Urine Bilirubin Negative (Negative) Urine Urobilinogen Negative (Negative) Ur Leukocyte Esterase 3+ H (Negative) Urine WBC (Auto) >30 H (0-5) /hpf Urine RBC (Auto) 5-10 H (0-4) /hpf U Hyaline Cast (Auto) 1-5 (0-5) /lpf U Epithel Cells (Auto) 20-30 H (0-5) /lpf Urine Bacteria (Auto) 4+ H (Negative) 10/15/21 10/15/21 10/15/21 Range/Units 06:42 06:42 06:42 WBC 12.84 H (4.8-10.8) K/uL RBC 4.21 (4.2-5.4) M/uL Hgb 12.0 (12.0-16.0) g/dL Hct 39.0 (37-47) % MCV 92.6 (80-100) fL MCH 28.5 (25-34) pg MCHC 30.8 L (32-36) g/dL RDW Std Deviation 63.6 H (36.4-46.3) fL RDW Coeff of Shama 18.6 H (11.5-14.5) % Plt Count 293 (130-400) K/uL MPV 9.7 (7.4-10.4) fL Immature Gran % (Auto) 0.2 % Neut % (Auto) 70.0 % Lymph % (Auto) 18.1 % [place] % (Auto) 9.9 % Eos % (Auto) 1.6 % Baso % (Auto) 0.2 % Neut # (Auto) 8.99 H (1.4-6.5) K/uL Lymph # (Auto) 2.33 (1.2-3.4) K/uL [place] # (Auto) 1.27 H (0.11-0.59) K/uL Eos # (Auto) 0.21 (0-0.5) K/uL Baso # (Auto) 0.02 (0-0.2) K/uL Immature Gran # (Auto) 0.02 (0.00-0.02) K/uL Sodium (136-145) mmol/L Potassium (3.5-5.1) mmol/L Chloride (98-107) mmol/L Carbon Dioxide (21-32) mmol/L Anion Gap (3-11) BUN (6-23) mg/dl Creatinine (0.6-1.2) mg/dl Est Cr Clr Drug Dosing ml/min Est GFR ( Amer) ml/min Est GFR (Non-Af Amer) ml/min BUN/Creatinine Ratio (10-20) Glucose (70-99) mg/dl POC Glucose (70-99) mg/dl Calcium (8.5-10.1) mg/dl Albumin 3.8 (3.4-5.0) gm/dl Folate 20.01 (>5.38) ng/ml Urine Color Urine Appearance (Clear) Urine pH (4.5-7.5) Ur Specific [place] (1.000-1.030) Urine Protein (Negative) Urine Glucose (UA) (Negative) Urine Ketones (Negative) Urine Blood (Negative) Urine Nitrite (Negative) Urine Bilirubin (Negative) Urine Urobilinogen (Negative) Ur Leukocyte Esterase (Negative) Urine WBC (Auto) (0-5) /hpf Urine RBC (Auto) (0-4) /hpf U Hyaline Cast (Auto) (0-5) /lpf U Epithel Cells (Auto) (0-5) /lpf Urine Bacteria (Auto) (Negative) 10/15/21 10/14/21 10/14/21 Range/Units 06:42 20:12 17:14 WBC (4.8-10.8) K/uL RBC (4.2-5.4) M/uL Hgb (12.0-16.0) g/dL Hct (37-47) % MCV (80-100) fL MCH (25-34) pg MCHC (32-36) g/dL RDW Std Deviation (36.4-46.3) fL RDW Coeff of Shama (11.5-14.5) % Plt Count (130-400) K/uL MPV (7.4-10.4) fL Immature Gran % (Auto) % Neut % (Auto) % Lymph % (Auto) % [place] % (Auto) % Eos % (Auto) % Baso % (Auto) % Neut # (Auto) (1.4-6.5) K/uL Lymph # (Auto) (1.2-3.4) K/uL [place] # (Auto) (0.11-0.59) K/uL Eos # (Auto) (0-0.5) K/uL Baso # (Auto) (0-0.2) K/uL Immature Gran # (Auto) (0.00-0.02) K/uL Sodium 143 (136-145) mmol/L Potassium 4.2 (3.5-5.1) mmol/L Chloride 104 (98-107) mmol/L Carbon Dioxide 29 (21-32) mmol/L Anion Gap 10 (3-11) BUN 24 H (6-23) mg/dl Creatinine 1.42 H (0.6-1.2) mg/dl Est Cr Clr Drug Dosing 32.9 ml/min Est GFR ( Amer) 39.2 ml/min Est GFR (Non-Af Amer) 33.8 ml/min BUN/Creatinine Ratio 16.9 (10-20) Glucose 155 H (70-99) mg/dl POC Glucose 142 H 89 (70-99) mg/dl Calcium 9.5 (8.5-10.1) mg/dl Albumin (3.4-5.0) gm/dl Folate (>5.38) ng/ml Urine Color Urine Appearance (Clear) Urine pH (4.5-7.5) Ur Specific [place] (1.000-1.030) Urine Protein (Negative) Urine Glucose (UA) (Negative) Urine Ketones (Negative) Urine Blood (Negative) Urine Nitrite (Negative) Urine Bilirubin (Negative) Urine Urobilinogen (Negative) Ur Leukocyte Esterase (Negative) Urine WBC (Auto) (0-5) /hpf Urine RBC (Auto) (0-4) /hpf U Hyaline Cast (Auto) (0-5) /lpf U Epithel Cells (Auto) (0-5) /lpf Urine Bacteria (Auto) (Negative) 10/14/21 10/14/21 Range/Units 17:02 16:44 WBC (4.8-10.8) K/uL RBC (4.2-5.4) M/uL Hgb (12.0-16.0) g/dL Hct (37-47) % MCV (80-100) fL MCH (25-34) pg MCHC (32-36) g/dL RDW Std Deviation (36.4-46.3) fL RDW Coeff of Shama (11.5-14.5) % Plt Count (130-400) K/uL MPV (7.4-10.4) fL Immature Gran % (Auto) % Neut % (Auto) % Lymph % (Auto) % [place] % (Auto) % Eos % (Auto) % Baso % (Auto) % Neut # (Auto) (1.4-6.5) K/uL Lymph # (Auto) (1.2-3.4) K/uL [place] # (Auto) (0.11-0.59) K/uL Eos # (Auto) (0-0.5) K/uL Baso # (Auto) (0-0.2) K/uL Immature Gran # (Auto) (0.00-0.02) K/uL Sodium (136-145) mmol/L Potassium (3.5-5.1) mmol/L Chloride (98-107) mmol/L Carbon Dioxide (21-32) mmol/L Anion Gap (3-11) BUN (6-23) mg/dl Creatinine (0.6-1.2) mg/dl Est Cr Clr Drug Dosing ml/min Est GFR ( Amer) ml/min Est GFR (Non-Af Amer) ml/min BUN/Creatinine Ratio (10-20) Glucose (70-99) mg/dl POC Glucose 59 L* 54 L* (70-99) mg/dl Calcium (8.5-10.1) mg/dl Albumin (3.4-5.0) gm/dl Folate (>5.38) ng/ml Urine Color Urine Appearance (Clear) Urine pH (4.5-7.5) Ur Specific [place] (1.000-1.030) Urine Protein (Negative) Urine Glucose (UA) (Negative) Urine Ketones (Negative) Urine Blood (Negative) Urine Nitrite (Negative) Urine Bilirubin (Negative) Urine Urobilinogen (Negative) Ur Leukocyte Esterase (Negative) Urine WBC (Auto) (0-5) /hpf Urine RBC (Auto) (0-4) /hpf U Hyaline Cast (Auto) (0-5) /lpf U Epithel Cells (Auto) (0-5) /lpf Urine Bacteria (Auto) (Negative) Diagnostic Findings Head CT 10/14/21 15:04 CT head/brain wo con CLINICAL HISTORY: AMS/confusion, recent cva, ?hemorr conver. fall Technique: Contiguous axial CT images of the head were acquired from the base of the skull to the vertex without intravenous contrast administration. Images were viewed in brain, subdural and bone windows. Automated dose lowering techniques and/or adjustment according to patient size were utilized for this exam. Comparison: Comparison is made to CT head 10/09/2021 and MRI brain 10/20/2021 Findings: In the interval, there is greater hypodensity in the left occipital lobe compatible with findings on MRI brain. This likely flex edema from evolving infarcts. There is minimal rightward midline shift of approximately 2 mm at the posterior falx. Imaged portions of the paranasal sinuses and mastoid air cells are clear. The orbits appear normal. There are no acute fractures of the calvaria or scalp swelling. 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 Punctate right frontoparietal infarct seen on MRI is not seen on today's exam. No evidence of hemorrhagic conversion. ACT 112: Negative or not required by law. Electronically signed by: Moises Gregorio M.D. 10/14/2021 6:19 PM KUB X-Ray 10/15/21 12:54 XR KUB/Abdomen 1 view CLINICAL HISTORY: constipation, AMS. COMPARISON STUDY: No previous studies for comparison. TECHNIQUE: Single view of the abdomen. FINDINGS: There is abnormal radiolucency present along the right paracolic gutter which d oes not definitely have the appearance of air within the colon. The presence of free intraperitoneal air cannot be excluded. Follow-up CT of the abdomen and pelvis is recommended. Additionally, air-filled loops of large and small bowel are present without evidence for disproportionate dilatation or obstruction. There is no evidence for significant fecal stasis. There is no evidence for organomegaly or gross intra-abdominal mass. No abnormal calcifications are seen along the course of the urinary tracts bilaterally. No acute osseous pathology. IMPRESSION: 1.Abnormal radiolucency along the right paracolic gutter suspicious for the presence of free intraperitoneal air. CT of the abdomen and pelvis recommended for further evaluation. The floor will be called with results of this study. ACT 112: Negative or not required by law. Electronically signed by: Jaya Geronimo M.D. 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
[2021-10-15] MEDS: IRON POLYSACCHARIDE COMPLEX 150 MG CAPSULE PO SCH (08:51)
[2021-10-15] MEDS: ASPIRIN 81 MG ECTAB PO SCH (08:51)
[2021-10-15] MEDS: lisinopril 20 MG TAB PO SCH ×2 (08:51→21:26)
[2021-10-15] MEDS: PYRIDOXINE HCL 50 MG TAB PO SCH (08:51)
[2021-10-15] MEDS: PANTOprazole 40 MG TAB PO SCH (08:51)
[2021-10-15] MEDS: FOLIC ACID 1 MG TAB PO SCH (08:51)
[2021-10-15] MEDS: APIXABAN 2.5 MG TAB PO SCH ×2 (08:51→21:26)
[2021-10-15] MEDS: DOCUSATE SODIUM/SENNA 50/8.6MG TAB PO SCH (08:52)
[2021-10-15] MEDS: FLUTICASONE/VILANTEROL 100/25MCG 14 PUFFS/INHALER INH SCH (08:52)
[2021-10-15] MEDS: INSULIN GLARGINE SOLOSTAR 100 UNITS/ML 3 ML PEN SC SCH (08:53)
[2021-10-15] MEDS: INSULIN ASPART PER UNIT SC SCH ×4 (08:55→21:22)
[2021-10-15] MEDS: traMADol HCL 50 MG TABLET PO PRN (09:00)
[2021-10-15] MEDS: FUROSEMIDE 20 MG TAB PO SCH (09:36)
--- NOTE | 2021-10-15 13:29 | Pharmacy Report ---
Pharmacy Glycemic Short Note 2 - Date of Service October 15, 2021 - Glycemic Short BSG Results (Last 24 hours): 10/14/21 10/14/21 10/14/21 16:44 17:02 17:14 Glucose POC Glucose 54 L* 59 L* 89 10/14/21 10/15/21 10/15/21 20:12 06:42 07:40 Glucose 155 H POC Glucose 142 H 140 H 10/15/21 11:24 Glucose POC Glucose 149 H OUTPATIENT ANTIDIABETIC REGIMEN: * Amaryl 1 mg daily * metformin 500 mg BID * HbA1c: 6.6% (10/10/21) ASSESSMENT: 10/14: * BSGs yesterday of 167, 207, 59, and 142 mg/dL * Received 27 units of insulin (15 of which was basal) * Fasting BSG of 140 mg/dL this morning - will continue increased dose of Lantus 15 units daily * Given low BSG at dinner, will loosen lunch, dinner, HS Novolog parameters 10/13: * BSGs yesterday, 144, 252, 90, and 115 mg/dL * Received 10 units of Lantus and 13 units of Novolog yesterday * Given downward trend later in the day, will maintain tighter Novolog parameters at breakfast and loosen thereafter * Fasting BSG of 163 mg/dL - will increase basal ~20% from yesterday 10/12: * Pt received total 29 units of insulin yesterday; 15 units of basal and 14 units bolus. * Pt became hypoglycemic around dinner time yesterday. Novolog parameters loosened this AM. * Fasting BSG today was 144 mg/dl today. Reduced basal Lantus dose further today. 10/10/21: * Ms Saucedo is an 85 y/o F with a PMH of T2DM who presents with headache. She was given Solu-Medrol 60 mg IV x 1 @0134 * Fasting BSG was 188 mg/dL. * Start Lantus 25 units x 1 (0.25 units/kg) to help accommodate steroid hyperglycemia. * Lantus scale for tomorrow morning. * Novolog weight-based stress of 3. Loosen this to weight-based stress of 2 at dinnertime as expect steroid hyperglycemia to not be as great. PLAN FOR INPATIENT GLYCEMIC CONTROL: * Hold outpatient oral diabetes medications * Basal insulin - continue * Lantus 15 units SC daily * Bolus insulin * NovoLog per scale ACHS or Q6hrs while NPO * Goal Range: Low 110 mg/dL - High 140 mg/dL at breakfast, 120-150 mg/dL with lunch, dinner, and HS * Correction Factor: 20 mg/dL/unit with breakfast, 35 mg//dL/unit with lunch, dinner, and HS * Nutritional / Prandial insulin per carb ratio of 1 unit per 6 grams CHO consumed, 1 unit per 12 grams CHO consumed with lunch, dinner, HS PLAN FOR DISCHARGE: * HbA1C = 6.6% on 10/10/21 * Goal A1c is less than 8% in this patient given her age and co-morbidities. A1c of 6.6% indicates that she is a well controlled diabetic at home with only oral anti-diabetic meds. * Recommend continue current meds (Metformin 500 mg BID with meals and Amaryl 1 mg daily with a meal) on discharge as long as patient is not reporting hypoglycemia at home.
--- NOTE | 2021-10-15 14:14 | XRay Report ---
XR KUB/Abdomen 1 view CLINICAL HISTORY: constipation, AMS. COMPARISON STUDY: No previous studies for comparison. TECHNIQUE: Single view of the abdomen. FINDINGS: There is abnormal radiolucency present along the right paracolic gutter which does not definitely hav e the appearance of air within the colon. The presence of free intraperitoneal air cannot be excluded . Follow-up CT of the abdomen and pelvis is recommended. Additionally, air-filled loops of large and small bowel are present without evidence for disproportio merced dilatation or obstruction. There is no evidence for significant fecal stasis. There is no eviden ce for organomegaly or gross intra-abdominal mass. No abnormal calcifications are seen along the cour se of the urinary tracts bilaterally. No acute osseous pathology. IMPRESSION: 1.Abnormal radiolucency along the right paracolic gutter suspicious for the presence of free intraper itoneal air. CT of the abdomen and pelvis recommended for further evaluation. The floor will be called with results of this study. ACT 112: Negative or not required by law. Electronically signed by: Jaya Geronimo M.D. 10/15/2021 2:13 PM
[2021-10-15 14:38] LABS: Appearance Urine Cloudy (Clear); Bacteria Urine Automated 4+ (Negative); Bilirubin Urine Negative (Negative); Blood Urine 1+ (Negative); Color Urine Yellow; Epithelial Cell Urine Auto 20-30 /lpf (0-5); Glucose Urine UA Negative (Negative); Ketones Urine Trace (Negative); Leukocyte Esterase Urine 3+ (Negative); Nitrite Urine Negative (Negative); Protein Urine 1+ (Negative); Specific Gravity Urine 1.015 (1.000-1.030); Urobilinogen Urine Negative (Negative); WBC Urine Automated >30 /hpf (0-5)
--- NOTE | 2021-10-15 16:31 | CT Scan Report ---
ABDOMEN AND PELVIS CT WITHOUT CONTRAST CT DOSE: 1182.79 mGy.cm HISTORY: Acute generalized abdominal pain with altered mental status ams, ?intraperitoneal free air on KUB TECHNIQUE: Multiaxial CT images of the abdomen and pelvis were performed without contrast. A dose lo wering technique was utilized adhering to the principles of ALARA. COMPARISON STUDY: KUB of same day, the abdomen 05/27/2011 FINDINGS: Cardiomegaly with coronary artery calcifications. Trace pericardial effusion. Mild bibasila r groundglass densities suggest atelectasis. No pneumatosis or pneumoperitoneum. The unenhanced splee n, adrenal glands and liver appear unremarkable. Cholecystectomy. Mild generalized pancreatic atrophy . There is a 1.3 cm hypodense focus within the pancreatic body on image 121. The previously described hypodensity of the pancreatic head neck junction on image 140 measures 10 mm. These are indeterminat e and possibly represents sidebranch IPMN's. Cortical thinning of the kidneys. No hydronephrosis. Bilateral perinephric stranding. No renal or ure teral calculi or hydronephrosis. Unremarkable urinary bladder. Vaginal pessary. Hysterectomy. No abdo gracie aortic aneurysm or adenopathy. Atherosclerosis of the aorta. No bowel obstruction. Moderate fecal retention of the rectum and distal sigmoid. Extensive sigmoid di verticulosis without acute diverticulitis. No bowel wall thickening. The appendix is not definitively seen. Fat filled periumbilical hernia demonstrates diastases of 4 cm. Probable small fat filled righ t inguinal hernia. Degenerative changes of the spine, pelvis and hips. Superior endplate Schmorl's no sofia with likely chronic T12 and L1 compression deformities. There is mild sigmoidal scoliosis of the spine. IMPRESSION: 1. No acute intra-abdominal or intrapelvic abnormality, specifically there is no pneumoperitoneum. 2. Colonic diverticulosis without acute diverticulitis. 3. Small to moderate fat filled periumbilical hernia. 4. Additional findings as above. ACT 112: Negative or not required by law. The above report was generated using voice recognition software. It may contain grammatical, syntax o r spelling errors. Electronically signed by: Julio Serrano M.D. 10/15/2021 4:30 PM
[2021-10-15] MEDS: cefTRIAXone SODIUM 2,000 MG in DEXTROSE 5% 50 ML IV SCH (16:57)
[2021-10-15 17:33] LABS: Lyme Ab IgG w/WB Rflx Negative (Negative); Lyme Ab IgM w/WB Rflx Negative (Negative)
[2021-10-15] MEDS ORDERED: hydrALAZINE HCL 20 MG/ML VIAL IV STA (19:16)
[2021-10-15] MEDS ORDERED: QUEtiapine FUMARATE 25 MG TABLET PO SCH (21:00)
[2021-10-15] MEDS: ATORVASTATIN 10 MG TAB PO SCH (21:26)
[2021-10-15] MEDS: MONTELUKAST SODIUM 10 MG TABLET PO SCH (21:27)
[2021-10-16] MEDS: ACETAMINOPHEN 325 MG TAB PO PRN ×2 (04:08→19:30)
[2021-10-16 07:46] LABS: Basophils # (auto) 0.02 K/uL (0-0.2); Basophils % (auto) 0.2 %; Eosinophils # (auto) 0.27 K/uL (0-0.5); Eosinophils % (auto) 2.4 %; Hematocrit (blood only) 35.9 % (37-47); Hemoglobin 11.1 g/dL (12.0-16.0); Immature Granulocytes # (auto) 0.02 K/uL (0.00-0.02); Immature Granulocytes % (auto) 0.2 %; Lymphocytes # (auto) 1.33 K/uL (1.2-3.4); Lymphocytes % (auto) 11.7 %; Mean Corpuscular Hemoglobin 29.1 pg (25-34); Mean Corpuscular Hgb Conc 30.9 g/dL (32-36); Monocytes # (auto) 0.84 K/uL (0.11-0.59); Monocytes % (auto) 7.4 %; Neutrophils # (auto) 8.87 K/uL (1.4-6.5); Neutrophils % (auto) 78.1 %; Platelet Count 277 K/uL (130-400); RDW Coefficient of Variation 18.5 % (11.5-14.5); RDW Standard Deviation 65.1 fL (36.4-46.3); Red Blood Count 3.82 M/uL (4.2-5.4); White Blood Count 11.35 K/uL (4.8-10.8)
[2021-10-16] MEDS: FLUTICASONE/VILANTEROL 100/25MCG 14 PUFFS/INHALER INH SCH (08:18)
[2021-10-16] MEDS: ASPIRIN 81 MG ECTAB PO SCH (08:18)
[2021-10-16] MEDS: DOCUSATE SODIUM/SENNA 50/8.6MG TAB PO SCH (08:18)
[2021-10-16] MEDS: FOLIC ACID 1 MG TAB PO SCH (08:18)
[2021-10-16] MEDS: PYRIDOXINE HCL 50 MG TAB PO SCH (08:19)
[2021-10-16] MEDS: lisinopril 20 MG TAB PO SCH (08:19)
[2021-10-16] MEDS: IRON POLYSACCHARIDE COMPLEX 150 MG CAPSULE PO SCH (08:19)
[2021-10-16] MEDS: PANTOprazole 40 MG TAB PO SCH (08:19)
[2021-10-16] MEDS: FUROSEMIDE 20 MG TAB PO SCH (08:19)
[2021-10-16] MEDS: INSULIN GLARGINE SOLOSTAR 100 UNITS/ML 3 ML PEN SC SCH (08:20)
[2021-10-16] MEDS: INSULIN ASPART PER UNIT SC SCH ×4 (08:21→21:17)
[2021-10-16 08:25] LABS: Albumin Globulin Ratio 1.2 (0.9-2); Albumin Level 3.3 gm/dl (3.4-5.0); BUN Creatinine Ratio 15.9 (10-20); Bilirubin,Total 0.4 mg/dl (0.2-1.0); Calcium 8.6 mg/dl (8.5-10.1); Est GFR (African American) 38.2 ml/min; Globulin 2.7 gm/dl (2.5-4.0); Potassium 4.2 mmol/L (3.5-5.1)
[2021-10-16] MEDS: cefTRIAXone SODIUM 2,000 MG in DEXTROSE 5% 50 ML IV SCH (08:27)
--- NOTE | 2021-10-16 09:16 | Hospitalist Progress Note ---
Date of Service October 16, 2021 Assessment & Plan (1) Acute encephalopathy: Plan: Admitted with headache, found to have MRI brain with numerous b/l strokes in the posterior and anterior circulations. (of note prior MRI Jul 2021 admitted for CHF and vertigo following URI, noted white matter hyperintense foci favoring extensive small vessel disease and several old lacunar infarcts noted at that time along with several hypointense foci on gradient echo sequence suggesting trace old blood products) ECHO WITHOUT source of thrombus. Could look at aorta for plaque but defer for now. --> This suggests embolic etiology. Due to high likelihood for embolic phenomenon she was empirically anticoagulated with heparin drip followed by Eliquis 2.5mg BID (given will be 86 next month, Cr 1.7) To continue ASA 81mg daily Prior review of chart with elevations in homocysteine and MMA (did have B12 def at that time) --> placed on B6/folate as well as her usual B12 , could be contributing to hypercoag state? Regardless, continued on eliquis as above Appreciate neurology consult; PT, OT, speech. --> PT/OT recommending SNF. Alerted CM -- patient with medicare and could likely go to [facility]. CM to discuss ACUTE ENCEPHALOPATHY still present, waxing/waning. * Multifactorial --> STROKE, DELIRIUM, LACK OF SLEEP x 3 days, HYPERCALCEMIA, CONSTIPATION, NOW UTI CXr without acute process Ammonia wnl Hadn't slept x 3 days/sundowning/delirium * --> seroquel increased to 75mg daily/d/c tele 10/15 and added melatonin * Increased confusion 10/14 into 10/15 (did get zyprexa overnight 10/13 into 10/14 in addition to extra seroquel) * sundown overnight, but finally fell asleep around 530am. Allowed to rest and asked RN to attempt ASA/Eliquis when patient wakes back up. Will continue current dose for now Repeat CT Head evening 10/14 for fall * --> Expected evolutionary changes of left occipital predominant infarcts. Punctate right frontoparietal infarct seen on MRI is not seen on today's exam. No evidence of hemorrhagic conversion. Constipation * +BM 10/15 reported. KUB done prior for hypoactive BS, indicating abn radiolucency supcicious for free air. CTA/P obtained without evidence for free air thankfully * +BS on exam, no guarding UTI * Repeat UAs had not shown infection 10/12 but repeat urine collection rec'd from UA on 10/09 * NOW WITH UTI. POA stated behavior similar to prior UTIs, and I req a repeat UA * Repeat UA requested, obained 10/15 --> APPEARS ACUTELY INFECTED. * STARTED ROCEPHIN (day 2), monitoring cx * Cx w/ Probable Pseudomonas species --> will change abx to include coverage for such WBC remains elevated 11k, afebrile --> trending down but still elevated Hypercalcemia * Ca elevated 10.4 on 10/14 and placed on IVF * Vit D elevated and patient had Vit D/Calcium supplementation stopped and Ca normalized on labs today. Holding amlodipine (2) Acute embolic stroke: (3) Hypercalcemia: Plan: as above, stopped supp. 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 Holding amlodipine, vit d and calcium supplementation -- since d/c as above giv en elevated Vit D BP currently 112/72, did not get am lisinopril. 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 Hypoxia when sleeping and very likely with underlying sleep apnea Euvolemic at present (7) Headache: Plan: resolved -- none reported 10/14 but did have slight headache today likely due to #1, and fall temporal arteritis NOT suspected (8) CKD (chronic kidney disease), stage III: Plan: baseline Cr 1.4 to 1.6 Cr 1.45 back to baseline Continue to monitor (9) Asthma: Plan: no symptoms at this time -- did have some wheezing and will ask rn to admin albuterol albuterol prn (10) Hyperlipidemia: Plan: LDL 72. Cont lipitor 10mg daily. (11) Type 2 diabetes mellitus: Plan: HbA1C 6.6% Hold glimepiride Hold metformin basal-bolus insulin regimen per pharmacy glycemic team and able to resume home medications at d/c given good control Did have hypoglycemic episode, loosened parameters. Improved today. continue to monitor (12) Chronic respiratory failure with hypoxia and hypercapnia: Plan: stable O2 sats in room air until now sleeping and back to requiring, placed back on --> previously noted needing 2L NC continuously in July 2021 admission. Of note also had HUMPHREY and received venofer x 2 (negative fecal occult) during that admission. Continue 2L NC poppy while sleeping. continue to monitor Hx pulm HTN consider 2 step prior to d/c to demonstrate needs (13) Nausea: Plan: 2nd to aspirin or other cause antiemetics prn No further nausea or feeling like she needs to vomit 10/13 but did have some nausea 10/14 reported. Working on bowel regimen. +BS. Also tx of hypercalcemia as above LFT acceptable KUB with possible free air Stat CT pending as above -- no free air. +BM 10/15. No tenderness on exam or issues reported by RN Continue to monitor (14) DVT prophylaxis: Plan: eliquis 2.5mg BID given going to be 86 next month -- if concern, could increase to 5mg BID then decrease on the , but seems reasonable at this time to continue 2.5mg BID. Will need rx at d/c Plan: From [place], to go to [facility] when medically stable Switched abx to Cefepime, seroquel 75mg HS for and sleep/wake cycles/windows open/etc Monitor urine cx Admission and Anticipated Discharge Date Admission Date: October 11, 2021 Supervising Physician Co-Signing Physician Notes Attending Attestation - Chart reviewed, care plan d/w RYAN Brown. I agree w/ the caballero components of her documentation. Ongoing delirium/encephalopathy - hospital psychosis, UTI, and recent strokes likely all to blame. Agree w/ change in IV antibiotics as urine pathogen likely pseudomonas. Appreciate psych recommendations for med management for delirium. Gera Albarran MD Subjective patient evaluated this morning had gotten 75mg seroquel overnight -- did have some hallucinations/accusing staff of stealing things. This morning, patient sleeping soundly. No issues reported by RN. 1:1 at bedside for safety. Started rocephin 10/15 for UTI, cx pending. BM reported last evening, normal. O2 in 80s this morning and placed on supplemental oxygen. SNORING currently. ?if underlying sleep apnea. Placed O2 into nares. Sleeping comfortably at this time. Review of Systems Review of Systems: Unobtainable due to cognitive status Physical Exam Physical Exam: gen - WN, WD, snoring soundly in bed, no acute distress. 2L via NC with O2 97% eyes -- R sided homonymous hemianopsia ent- mmm, trachea midline resp: diminished in the bases, basilar crackles, faint end exp wheezing, on 2L NC cv: RRR, +murmur, no calf edema, non-tender, pulses palpable gu: +BS, soft, non-tender/no guarding skin; cool, dry neuro: not able to complete today due to increased lethargy/sleeping and just finally fell asleep after 3 days of being awake. prior finger/nose/finger with modest ataxia on LEFT, no facial droop appreciated, strength 5/5 b/l psych: aox1, not place/time Results & Data Results & Data ([facility]) Vital Signs (Past 12 Hours) Vital Signs Temp Pulse Resp BP Pulse Ox 10/16/21 07:32 37.2 C 75 22 117/75 86 L Laboratory Results 10/16/21 10/16/21 10/16/21 Range/Units 07:41 07:25 07:25 WBC 11.35 H (4.8-10.8) K/uL RBC 3.82 L (4.2-5.4) M/uL Hgb 11.1 L (12.0-16.0) g/dL Hct 35.9 L (37-47) % MCV 94.0 (80-100) fL MCH 29.1 (25-34) pg MCHC 30.9 L (32-36) g/dL RDW Std Deviation 65.1 H (36.4-46.3) fL RDW Coeff of Shama 18.5 H (11.5-14.5) % Plt Count 277 (130-400) K/uL MPV 10.0 (7.4-10.4) fL Immature Gran % (Auto) 0.2 % Neut % (Auto) 78.1 % Lymph % (Auto) 11.7 % [place] % (Auto) 7.4 % Eos % (Auto) 2.4 % Baso % (Auto) 0.2 % Neut # (Auto) 8.87 H (1.4-6.5) K/uL Lymph # (Auto) 1.33 (1.2-3.4) K/uL [place] # (Auto) 0.84 H (0.11-0.59) K/uL Eos # (Auto) 0.27 (0-0.5) K/uL Baso # (Auto) 0.02 (0-0.2) K/uL Immature Gran # (Auto) 0.02 (0.00-0.02) K/uL Sodium 140 (136-145) mmol/L Potassium 4.2 (3.5-5.1) mmol/L Chloride 104 (98-107) mmol/L Carbon Dioxide 26 (21-32) mmol/L Anion Gap 10 (3-11) BUN 23 (6-23) mg/dl Creatinine 1.45 H (0.6-1.2) mg/dl Est Cr Clr Drug Dosing 32.0 ml/min Est GFR ( Amer) 38.2 ml/min Est GFR (Non-Af Amer) 33.0 ml/min BUN/Creatinine Ratio 15.9 (10-20) Glucose 180 H (70-99) mg/dl POC Glucose 173 H (70-99) mg/dl Calcium 8.6 (8.5-10.1) mg/dl Total Bilirubin 0.4 (0.2-1.0) mg/dl AST 19 (13-39) U/L ALT 11 (7-52) U/L Alkaline Phosphatase 84 (34-104) U/L Total Protein 6.0 (6.0-8.3) gm/dl Albumin 3.3 L (3.4-5.0) gm/dl Globulin 2.7 (2.5-4.0) gm/dl Albumin/Globulin Ratio 1.2 (0.9-2) Urine Color Urine Appearance (Clear) Urine pH (4.5-7.5) Ur Specific Hoffman (1.000-1.030) Urine Protein (Negative) Urine Glucose (UA) (Negative) Urine Ketones (Negative) Urine Blood (Negative) Urine Nitrite (Negative) Urine Bilirubin (Negative) Urine Urobilinogen (Negative) Ur Leukocyte Esterase (Negative) Urine WBC (Auto) (0-5) /hpf Urine RBC (Auto) (0-4) /hpf U Hyaline Cast (Auto) (0-5) /lpf U Epithel Cells (Auto) (0-5) /lpf Urine Bacteria (Auto) (Negative) Lyme Disease IgG Ab (Negative) Lyme Disease IgM Ab (Negative) 10/15/21 10/15/21 10/15/21 Range/Units 20:36 16:43 12:20 WBC (4.8-10.8) K/uL RBC (4.2-5.4) M/uL Hgb (12.0-16.0) g/dL Hct (37-47) % MCV (80-100) fL MCH (25-34) pg MCHC (32-36) g/dL RDW Std Deviation (36.4-46.3) fL RDW Coeff of Shama (11.5-14.5) % Plt Count (130-400) K/uL MPV (7.4-10.4) fL Immature Gran % (Auto) % Neut % (Auto) % Lymph % (Auto) % [place] % (Auto) % Eos % (Auto) % Baso % (Auto) % Neut # (Auto) (1.4-6.5) K/uL Lymph # (Auto) (1.2-3.4) K/uL [place] # (Auto) (0.11-0.59) K/uL Eos # (Auto) (0-0.5) K/uL Baso # (Auto) (0-0.2) K/uL Immature Gran # (Auto) (0.00-0.02) K/uL Sodium (136-145) mmol/L Potassium (3.5-5.1) mmol/L Chloride (98-107) mmol/L Carbon Dioxide (21-32) mmol/L Anion Gap (3-11) BUN (6-23) mg/dl Creatinine (0.6-1.2) mg/dl Est Cr Clr Drug Dosing ml/min Est GFR ( Amer) ml/min Est GFR (Non-Af Amer) ml/min BUN/Creatinine Ratio (10-20) Glucose (70-99) mg/dl POC Glucose 128 H 129 H (70-99) mg/dl Calcium (8.5-10.1) mg/dl Total Bilirubin (0.2-1.0) mg/dl AST (13-39) U/L ALT (7-52) U/L Alkaline Phosphatase (34-104) U/L Total Protein (6.0-8.3) gm/dl Albumin (3.4-5.0) gm/dl Globulin (2.5-4.0) gm/dl Albumin/Globulin Ratio (0.9-2) Urine Color Yellow Urine Appearance Cloudy A (Clear) Urine pH 7.0 (4.5-7.5) Ur Specific Hoffman 1.015 (1.000-1.030) Urine Protein 1+ H (Negative) Urine Glucose (UA) Negative (Negative) Urine Ketones Trace H (Negative) Urine Blood 1+ H (Negative) Urine Nitrite Negative (Negative) Urine Bilirubin Negative (Negative) Urine Urobilinogen Negative (Negative) Ur Leukocyte Esterase 3+ H (Negative) Urine WBC (Auto) >30 H (0-5) /hpf Urine RBC (Auto) 5-10 H (0-4) /hpf U Hyaline Cast (Auto) 1-5 (0-5) /lpf U Epithel Cells (Auto) 20-30 H (0-5) /lpf Urine Bacteria (Auto) 4+ H (Negative) Lyme Disease IgG Ab (Negative) Lyme Disease IgM Ab (Negative) 10/15/21 10/15/21 Range/Units 11:24 06:48 WBC (4.8-10.8) K/uL RBC (4.2-5.4) M/uL Hgb (12.0-16.0) g/dL Hct (37-47) % MCV (80-100) fL MCH (25-34) pg MCHC (32-36) g/dL RDW Std Deviation (36.4-46.3) fL RDW Coeff of Shama (11.5-14.5) % Plt Count (130-400) K/uL MPV (7.4-10.4) fL Immature Gran % (Auto) % Neut % (Auto) % Lymph % (Auto) % [place] % (Auto) % Eos % (Auto) % Baso % (Auto) % Neut # (Auto) (1.4-6.5) K/uL Lymph # (Auto) (1.2-3.4) K/uL [place] # (Auto) (0.11-0.59) K/uL Eos # (Auto) (0-0.5) K/uL Baso # (Auto) (0-0.2) K/uL Immature Gran # (Auto) (0.00-0.02) K/uL Sodium (136-145) mmol/L Potassium (3.5-5.1) mmol/L Chloride (98-107) mmol/L Carbon Dioxide (21-32) mmol/L Anion Gap (3-11) BUN (6-23) mg/dl Creatinine (0.6-1.2) mg/dl Est Cr Clr Drug Dosing ml/min Est GFR ( Amer) ml/min Est GFR (Non-Af Amer) ml/min BUN/Creatinine Ratio (10-20) Glucose (70-99) mg/dl POC Glucose 149 H (70-99) mg/dl Calcium (8.5-10.1) mg/dl Total Bilirubin (0.2-1.0) mg/dl AST (13-39) U/L ALT (7-52) U/L Alkaline Phosphatase (34-104) U/L Total Protein (6.0-8.3) gm/dl Albumin (3.4-5.0) gm/dl Globulin (2.5-4.0) gm/dl Albumin/Globulin Ratio (0.9-2) Urine Color Urine Appearance (Clear) Urine pH (4.5-7.5) Ur Specific Hoffman (1.000-1.030) Urine Protein (Negative) Urine Glucose (UA) (Negative) Urine Ketones (Negative) Urine Blood (Negative) Urine Nitrite (Negative) Urine Bilirubin (Negative) Urine Urobilinogen (Negative) Ur Leukocyte Esterase (Negative) Urine WBC (Auto) (0-5) /hpf Urine RBC (Auto) (0-4) /hpf U Hyaline Cast (Auto) (0-5) /lpf U Epithel Cells (Auto) (0-5) /lpf Urine Bacteria (Auto) (Negative) Lyme Disease IgG Ab Negative (Negative) Lyme Disease IgM Ab Negative (Negative) PG Care Time/CCT Total # of Minutes Spent Total Time Spent with Patient: Total time spent is greater than 50% in coordination of care (as documented) at patient's floor/unit and/or counseling patient: Coding Level of Care Code 08893 Subseq Hosp Care Lvl 3 Diagnoses Acute encephalopathy G93.40 Acute embolic stroke I63.9 Hypercalcemia E83.52 Hypertension I10 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
[2021-10-16] MEDS: APIXABAN 2.5 MG TAB PO SCH ×2 (10:10→21:16)
[2021-10-16] MEDS: CEFEPIME 2,000 MG in SYRINGE 0 ML IV SCH (14:26)
--- NOTE | 2021-10-16 16:04 | Psychiatric Consultation ---
Date of Consultation October 16, 2021 Impression / Recommendations Impression This is a 85 yo old admitted for CVA and confusion. Diagnostically consistent with acute encephalopathy likely superimposed on dementia with behavioral disturbance which is what prior to admission seroquel was being used for I suspect. Goal in dementia is to avoid medication management of behaviors if possible by maximizing non-pharmacologic strategies for behavioral management. However, given worsening agitation/aggression and delirium antipsychotic risk/benefit profile favors treatment. Note all antipsychotic medications carry black box warning for increased risk of all-cause mortality in setting of dementia. Suspect acute delirium is being driven by multiple factors as described her hospitalist providers who are working to maximize medical management and thus improve her symptoms. I do worry that she may have developed akathisia from doses of IM olanzapine on top of her scheduled seroquel resulting in a paradoxical increase in agitation and restlessness. However, UTI identified at around same time so agitation could be entirely due to worsened hyperactive delirium. But worth trying a lower dose of seroquel, increasing melatonin, focusing on behavioral management strategies (nursing working to make her room quiet, low stimulation and working well today), and trying to limit tramadol as tolerated as this can also contribute to delirium while medical treatment continues. -Agree with utilizing 1-on-1 when needed if agitation worsens, try to avoid when possible -Consider reducing seroquel back to 50 mg qhs (If unsuccessful we could consider split dosing 25mg BID or next step would be risperidone trial-risperidone 0.25 mg qd and can titrate up to maximum of 1mg qd). -Increase melatonin 6mg qhs -Continue medical management of underlying causes contributing to delirium, avoid or limit use of deliriogenic medications (benzodiazepines, opioids, anticholinergics) -Continue with delirium prevention measures: raising blinds during the day, closing at night, frequent re-orientation, contact with family/friends, explaining procedures/nursing care measures prior to physical contact, correct any hearing and visual impairments -For behavioral emergency: olanzapine 2.5 mg IM x 1 but try to avoid as may be contributing to paradoxical reaction(DO NOT exceed 5mg per 24 hours, check EKG if IM dose required, NEVER co-administer with IM or IV benzodiazepines). -They do not meet criteria for inpatient psychiatric hospitalization as primary cause of current symptoms is felt to be due to delirium and/or dementia (1) Acute encephalopathy: (2) Acute embolic stroke: see impression above Psych History Identifying Data 85 yo woman with history of CHF, COPD on oxygen, CKD III, HLD, HTN, JOSEFINA and on seroquel for reported mood disorder admitted medically and being managed for acute delirium in setting of multiple CVAs, UTI. Psychiatry was consulted for increasing agitation and delirium management. Chief Complaint "I'm sleepy". History of Present Illness Deysi was sleeping in her room with the blinds down on our assessment this afternoon. She was able to be woken using verbal prompts and opened her eyes and stated "I'm sleepy" but otherwise was unable to engage in any type of interview. She was snoring while asleep and while awake continued to keep her mouth open widely with slightly soft speech, difficult to interpret. Spoke with her RN who noted she had been sleeping through much of today. Reviewed chart. Increased confusion since admission with worsening agitation in the evenings and overnight. Received olanzapine 5mg IM on 10/12 and 10/13 overnight. Melatonin was added to help with sleep and delirium after she began having increased difficulty with sleep and going 3 days with very limited sleep. She was on seroquel 50mg qhs prior to admission for unclear reasons (mood disorder) which was increased to 75mg qhs to help target increased agitation and poor sleep with limited benefit. Past Psychiatric History Previous Psych History: unable to assess fully but per chart review only seroquel Allergies Allergy/AdvReac Type Severity Reaction Status Date / Time coconut Allergy Intermediate Rash Verified 10/09/21 20:37 peanut Allergy Intermediate Rash Verified 10/09/21 20:37 blueberry Allergy Unknown Verified 10/09/21 20:37 raspberry Allergy Unknown Verified 10/09/21 20:37 oxycodone [From OxyContin] AdvReac Mild hallucinati Verified 10/08/21 10:13 on Home Medications Medication Instructions Recorded Confirmed Type tramadol 50 mg tablet 50 mg PO Q8H PRN #90 tab 10/03/20 10/09/21 Rx amlodipine 5 mg tablet 5 mg PO DAILY #90 tab 02/04/21 10/09/21 Rx metformin 500 mg tablet 500 mg PO BID #180 tab 03/06/21 10/09/21 Rx acetaminophen 325 mg tablet 650 mg PO Q4H PRN #120 tab MDD 3g 05/26/21 10/09/21 Rx or 9 tabs atorvastatin 10 mg tablet 10 mg PO HS #90 tab 05/26/21 10/09/21 Rx cyanocobalamin (vitamin B-12) 1,000 mcg IM MONTHLY #1 ml 05/26/21 10/09/21 Rx 1,000 mcg/mL injection solution glimepiride 1 mg tablet 1 mg PO QAM #90 tab 05/26/21 10/09/21 Rx lisinopril 20 mg tablet 20 mg PO BID #180 tab 05/26/21 10/09/21 Rx metoprolol tartrate 50 mg tablet 50 mg PO BID #180 tab 05/26/21 10/09/21 Rx montelukast 10 mg tablet 10 mg PO HS #90 tab 05/26/21 10/09/21 Rx pantoprazole 40 mg tablet,delayed 40 mg PO DAILY #90 tab 05/26/21 10/09/21 Rx release quetiapine 50 mg tablet 50 mg PO HS #90 tab 05/26/21 10/09/21 Rx albuterol sulfate 90 mcg/actuation 2 puff INHALATION Q6H PRN #8.5 g 06/27/21 10/09/21 Rx aerosol inhaler fluticasone 100 mcg-salmeterol 50 1 inh INHALATION BID #180 ea 06/27/21 10/09/21 Rx mcg/dose blistr powdr for inhalation (Advair Diskus) cholecalciferol (vitamin D3) 125 125 mcg PO DAILY #90 tab 07/01/21 10/09/21 Rx mcg (5,000 unit) tablet polysaccharide iron complex 150 mg 150 mg PO DAILY #90 cap 07/01/21 10/09/21 Rx iron capsule (Ferrex) Oxygen Home #1 ea 07/13/21 10/09/21 Rx aspirin 81 mg tablet,delayed 81 mg PO DAILY #90 tab 10/01/21 10/09/21 Rx release (Aspirin Low Dose) acetaminophen 325 mg tablet 650 mg PO HS 10/09/21 10/09/21 History calcium carbonate 600 mg-vitamin 1 tab PO DAILY 10/09/21 10/09/21 History D3 5 mcg (200 unit) tablet (Calcium 600 + D(3)) dextran 70-hypromellose eye drops 1 drp OPHTHALMIC (EYE) DAILY PRN 10/09/21 10/09/21 History in a dropperette (Artificial Tears (PF)) furosemide 20 mg tablet (Lasix) 20 mg PO DAILY 10/09/21 10/09/21 History guaifenesin 600 mg tablet, 600 mg PO Q12H PRN 10/09/21 10/09/21 History extended release 12 hr (Mucinex) methyl salicylate 15 %-menthol 10 1 applic TOPICAL BID PRN 10/09/21 10/09/21 History % topical cream nystatin 100,000 unit/gram topical 1 appln TOP TID PRN 10/09/21 10/09/21 History powder (Nystop) sennosides 8.6 mg tablet (Senokot) 8.6 mg PO DAILY PRN 10/09/21 10/09/21 History Personal History Living Arrangements: Personal Care Facility Highest Grade Completed: High School Graduate Beliefs That Will Affect Care: None Patient History Medical History Acute congestive heart failure Anemia Asthma Benign essential tremor Chronic cerebral ischemia Chronic low back pain Chronic renal insufficiency CKD (chronic kidney disease), stage III Hyperlipidemia Hypertension Mood disorder Obstructive sleep apnea s/p UPPP surgery Osteoarthritis Osteopenia Peripheral neuropathy Prolapse of female pelvic organs Type 2 diabetes mellitus Vitamin B12 deficiency Vitamin D deficiency Surgical History H/O wisdom tooth extraction History of knee replacement R and L History of tonsillectomy and adenoidectomy S/P appendectomy S/P cholecystectomy S/P uvulopalatopharyngoplasty S/P vaginal hysterectomy unsure if ovaries were left Family History Sister Liver cancer Mother , in her 50s of heart issues Heart disease Father , in his 50s of cancer Cancer Denies family history of Ovarian cancer Breast cancer Colorectal cancer Uterine cancer Social History Smoking Status: Never smoker Second Hand Exposure: No; Do You Dip or Chew Tobacco: No; Hx Alcohol Use: No Hx Substance Use: No Preferred Language: Amharic Communication Ability: Effective Visual Impairment: No Limitations Hearing Ability: Normal Shot Hole Driller Required: No Beliefs That Will Affect Care: None marital status: / Current Living Situation: Group Home Current Living Situation Comment: lives at the [facility] current occupational status: retired 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 How many Children do You have: 2 Feels Safe at Home: Yes Safety Concerns: Feels Safe At This Time caffeine: No Physical Activity Frequency: Does not Exercise Seatbelt Use: always Assistive Devices: Oxygen - Continuous Physical Exam 2 Psychiatric: Orientation: + not alert Apperance: + disheveled Eye Contact: + poor eye contact Motor Behavior: no abnormal motor movements Speech: + abnormal rate/rhythm/volume of speech (brief, soft, difficult to understand) Affect: + flat affect Thought Process: + looseness of associations Hallucinations: + auditory hallucinations (per chart ) Cognition: + attention not intact Insight: + severely impaired insight Judgement: + severely impaired judgement Vital Signs (Past 24 Hours): Last Vital Signs Temp 36.7 C 10/16/21 10:40 Pulse 88 10/16/21 10:40 Resp 16 10/16/21 10:40 BP 112/72 10/16/21 10:40 Pulse Ox 97 10/16/21 10:40 Review of Systems Unobtainable due to cognitive status Results & Data (PSY) Laboratory Results Reviewed labwork, Cr elevated, UA abnml Diagnostic Findings QTc within normal limits on last EKG on 10/09. Patient had been monitored on tele since recently. Medications Administered Acetaminophen (Acetaminophen 325 Mg Tab) 650 mg PO Q4H PRN PRN Reason: Pain or Fever Stop: 11/09/21 01:44 Last Admin: 10/16/21 04:08 Dose: 650 mg Documented by: [id number] Admin: 10/13/21 19:33 Dose: 650 mg Documented by: [id number] Admin: 10/12/21 11:24 Dose: 650 mg Documented by: [id number] Admin: 10/11/21 19:50 Dose: 650 mg Documented by: [id number] Admin: 10/10/21 20:38 Dose: 650 mg Documented by: [id number] Admin: 10/10/21 13:14 Dose: 650 mg Documented by: [id number] Admin: 10/10/21 05:24 Dose: 650 mg Documented by: [id number] Amlodipine Besylate (Amlodipine Besylate 5 Mg Tab) 5 mg PO DAILY JOVI Stop: 11/09/21 08:59 Last Admin: 10/13/21 08:12 Dose: 5 mg Documented by: [id number] Admin: 10/12/21 07:57 Dose: 5 mg Documented by: [id number] Admin: 10/11/21 08:16 Dose: 5 mg Documented by: [id number] Admin: 10/10/21 09:07 Dose: 5 mg Documented by: [id number] Apixaban (Apixaban 2.5 Mg Tab) 2.5 mg PO BID JOVI Stop: 11/10/21 20:59 Last Admin: 10/16/21 10:10 Dose: Not Given Documented by: [id number] Admin: 10/15/21 21:26 Dose: 2.5 mg Documented by: [id number] Admin: 10/15/21 08:51 Dose: 2.5 mg Documented by: [id number] Admin: 10/14/21 21:09 Dose: 2.5 mg Documented by: [id number] Admin: 10/14/21 10:17 Dose: 2.5 mg Documented by: [id number] Admin: 10/13/21 20:43 Dose: 2.5 mg Documented by: [id number] Admin: 10/13/21 08:11 Dose: 2.5 mg Documented by: [id number] Admin: 10/12/21 20:34 Dose: 2.5 mg Documented by: [id number] Admin: 10/12/21 07:57 Dose: 2.5 mg Documented by: [id number] Admin: 10/11/21 20:12 Dose: 2.5 mg Documented by: [id number] Aspirin (Aspirin 81 Mg Ectab) 81 mg PO DAILY JOVI Stop: 11/09/21 08:59 Last Admin: 10/16/21 08:18 Dose: Not Given Documented by: [id number] Admin: 10/15/21 08:51 Dose: 81 mg Documented by: [id number] Admin: 10/14/21 10:18 Dose: 81 mg Documented by: [id number] Admin: 10/13/21 08:12 Dose: 81 mg Documented by: [id number] Admin: 10/12/21 07:57 Dose: 81 mg Documented by: [id number] Admin: 10/11/21 08:17 Dose: 81 mg Documented by: [id number] Admin: 10/10/21 09:07 Dose: 81 mg Documented by: [id number] Atorvastatin Calcium (Atorvastatin 10 Mg Tab) 10 mg PO HS JOVI Stop: 11/09/21 20:59 Last Admin: 10/15/21 21:26 Dose: 10 mg Documented by: [id number] Admin: 10/14/21 21:10 Dose: 10 mg Documented by: [id number] Admin: 10/13/21 20:43 Dose: 10 mg Documented by: [id number] Admin: 10/12/21 20:35 Dose: 10 mg Documented by: [id number] Admin: 10/11/21 20:04 Dose: 10 mg Documented by: [id number] Admin: 10/10/21 20:16 Dose: 10 mg Documented by: [id number] Fluticasone/Vilanterol (Fluticasone/Vilanterol 100/25mcg 14 Puffs/Inhaler) 1 puffs INH DAILY JOVI Stop: 11/09/21 08:59 Last Admin: 10/16/21 08:18 Dose: Not Given Documented by: [id number] Admin: 10/15/21 08:52 Dose: 1 puffs Documented by: [id number] Admin: 10/14/21 10:20 Dose: 1 puffs Documented by: [id number] Admin: 10/13/21 08:13 Dose: 1 puffs Documented by: [id number] Admin: 10/12/21 07:58 Dose: 1 puffs Documented by: [id number] Admin: 10/11/21 08:15 Dose: 1 puffs Documented by: [id number] Admin: 10/10/21 09:06 Dose: 1 puffs Documented by: [id number] Folic Acid (Folic Acid 1 Mg Tab) 1 mg PO QAM JOVI Stop: 11/14/21 08:59 Last Admin: 10/16/21 08:18 Dose: Not Given Documented by: [id number] Admin: 10/15/21 08:51 Dose: 1 mg Documented by: [id number] Furosemide (Furosemide 20 Mg Tab) 20 mg PO DAILY JOVI Stop: 11/09/21 08:59 Last Admin: 10/16/21 08:19 Dose: Not Given Documented by: [id number] Admin: 10/15/21 09:36 Dose: Not Given Documented by: [id number] Admin: 10/13/21 08:13 Dose: 20 mg Documented by: [id number] Admin: 10/12/21 07:57 Dose: 20 mg Documented by: [id number] Admin: 10/11/21 08:16 Dose: 20 mg Documented by: [id number] Admin: 10/10/21 09:08 Dose: 20 mg Documented by: [id number] Cefepime HCl 2,000 mg/ Syringe 20 mls @ 5 mls/min IV Q24H JOVI; Protocol Stop: 10/21/21 12:59 Last Admin: 10/16/21 14:26 Dose: 5 mls/min Documented by: [id number] Insulin Aspart (Insulin Aspart Per Unit) 0 units SC DAILY@0730 JOVI; Protocol Stop: 11/09/21 03:59 Last Admin: 10/16/21 08:21 Dose: 2 units Documented by: [id number] Cosigned by: [id number] Admin: 10/15/21 08:55 Dose: Not Given Documented by: [id number] Cosigned by: [id number] Admin: 10/14/21 10:35 Dose: 5 units Documented by: [id number] Cosigned by: [id number] Insulin Aspart (Insulin Aspart Per Unit) 0 units SC 1130,1630,2100 JOVI; Protocol Stop: 11/12/21 11:29 Last Admin: 10/16/21 12:38 Dose: Not Given Documented by: [id number] Admin: 10/15/21 21:22 Dose: Not Given Documented by: [id number] Admin: 10/15/21 17:32 Dose: 1 units Documented by: [id number] Cosigned by: [id number] Admin: 10/15/21 12:29 Dose: Not Given Documented by: [id number] Admin: 10/14/21 21:10 Dose: Not Given Documented by: [id number] Admin: 10/14/21 17:14 Dose: Not Given Documented by: [id number] Admin: 10/14/21 13:55 Dose: 7 units Documented by: [id number] Cosigned by: [id number] Admin: 10/13/21 20:42 Dose: 1 units Documented by: [id number] Cosigned by: [id number] Admin: 10/13/21 17:11 Dose: Not Given Documented by: [id number] Admin: 10/13/21 12:58 Dose: 1 units Documented by: [id number] Cosigned by: [id number] Insulin Glargine (Insulin Glargine Solostar 100 Units/Ml 3 Ml Pen) 15 units SC QAM [facility]; Protocol Stop: 11/11/21 08:59 Last Admin: 10/16/21 08:20 Dose: 15 units Documented by: [id number] Cosigned by: [id number] Admin: 10/15/21 08:53 Dose: 15 units Documented by: [id number] Cosigned by: [id number] Admin: 10/14/21 10:21 Dose: 15 units Documented by: [id number] Cosigned by: [id number] Lisinopril (Lisinopril 20 Mg Tab) 20 mg PO BID JOVI Stop: 11/13/21 08:59 Last Admin: 10/16/21 08:19 Dose: Not Given Documented by: [id number] Admin: 10/15/21 21:26 Dose: 20 mg Documented by: [id number] Admin: 10/15/21 08:51 Dose: 20 mg Documented by: [id number] Admin: 10/14/21 21:13 Dose: 20 mg Documented by: [id number] Admin: 10/14/21 10:51 Dose: 20 mg Documented by: [id number] Miscellaneous (Carbohydrates For Hypoglycemia ) 15 - 30 gm PO UD PRN PRN Reason: Hypoglycemia Treatment Stop: 11/09/21 03:59 Last Admin: 10/14/21 17:05 Dose: 15 gm Documented by: [id number] Admin: 10/14/21 16:56 Dose: 15 gm Documented by: [id number] Admin: 10/11/21 16:54 Dose: 15 gm Documented by: [id number] Montelukast Sodium (Montelukast Sodium 10 Mg Tablet) 10 mg PO HS JOVI Stop: 11/09/21 20:59 Last Admin: 10/15/21 21:27 Dose: 10 mg Documented by: [id number] Admin: 10/14/21 21:13 Dose: 10 mg Documented by: [id number] Admin: 10/13/21 20:43 Dose: 10 mg Documented by: [id number] Admin: 10/12/21 20:35 Dose: 10 mg Documented by: [id number] Admin: 10/11/21 20:04 Dose: 10 mg Documented by: [id number] Admin: 10/10/21 20:16 Dose: 10 mg Documented by: [id number] Multivitamins/Minerals (Calcium 600mg + Vit D 400 Iu Tab) 1 tab PO DAILY JOVI Stop: 11/09/21 08:59 Last Admin: 10/13/21 08:12 Dose: 1 tab Documented by: [id number] Admin: 10/12/21 07:57 Dose: 1 tab Documented by: [id number] Admin: 10/11/21 08:17 Dose: 1 tab Documented by: [id number] Admin: 10/10/21 09:08 Dose: 1 tab Documented by: [id number] Pantoprazole Sodium (Pantoprazole 40 Mg Tab) 40 mg PO DAILY [facility] Stop: 11/09/21 08:59 Last Admin: 10/16/21 08:19 Dose: Not Given Documented by: [id number] Admin: 10/15/21 08:51 Dose: 40 mg Documented by: [id number] Admin: 10/14/21 10:19 Dose: 40 mg Documented by: [id number] Admin: 10/13/21 08:12 Dose: 40 mg Documented by: [id number] Admin: 10/12/21 07:57 Dose: 40 mg Documented by: [id number] Admin: 10/11/21 08:15 Dose: 40 mg Documented by: [id number] Admin: 10/10/21 09:07 Dose: 40 mg Documented by: [id number] Polyethylene Glycol (Polyethylene (Miralax) 17 Gm Pack) 17 gm PO DAILY PRN PRN Reason: Constipation Stop: 11/09/21 01:44 Last Admin: 10/14/21 15:31 Dose: 17 gm Documented by: [id number] Polysaccharide Iron Complex (Iron Polysaccharide Complex 150 Mg Capsule) 150 mg PO DAILY JOVI Stop: 11/09/21 08:59 Last Admin: 10/16/21 08:19 Dose: Not Given Documented by: [id number] Admin: 10/15/21 08:51 Dose: 150 mg Documented by: [id number] Admin: 10/14/21 10:17 Dose: 150 mg Documented by: [id number] Admin: 10/13/21 08:12 Dose: 150 mg Documented by: [id number] Admin: 10/12/21 07:57 Dose: 150 mg Documented by: [id number] Admin: 10/11/21 08:17 Dose: 150 mg Documented by: [id number] Admin: 10/10/21 09:07 Dose: 150 mg Documented by: [id number] Pyridoxine HCl (Pyridoxine Hcl 50 Mg Tab) 50 mg PO QAM JOVI Stop: 11/14/21 08:59 Last Admin: 10/16/21 08:19 Dose: Not Given Documented by: [id number] Admin: 10/15/21 08:51 Dose: 50 mg Documented by: [id number] Quetiapine Fumarate (Quetiapine Fumarate 25 Mg Tablet) 75 mg PO HS JOVI Stop: 11/14/21 20:59 Last Admin: 10/15/21 21:25 Dose: 75 mg Documented by: [id number] Senna/Docusate Sodium (Docusate Sodium/Senna 50/8.6mg Tab) 1 tab PO QAM JOVI Stop: 11/14/21 08:59 Last Admin: 10/16/21 08:18 Dose: Not Given Documented by: [id number] Admin: 10/15/21 08:52 Dose: 1 tab Documented by: [id number] Tramadol HCl (Tramadol Hcl 50 Mg Tablet) 50 mg PO Q8H PRN PRN Reason: Pain Stop: 11/10/21 15:29 Last Admin: 10/15/21 09:00 Dose: 50 mg Documented by: [id number] Admin: 10/12/21 23:52 Dose: 50 mg Documented by: [id number] Admin: 10/12/21 00:31 Dose: 50 mg Documented by: [id number] Admin: 10/11/21 16:28 Dose: 50 mg Documented by: [id number] Vitamin D (Cholecalciferol 5,000 Units 125 Mcg Tab) 5,000 units PO DAILY JOVI Stop: 11/09/21 08:59 Last Admin: 10/13/21 08:12 Dose: 5,000 units Documented by: [id number] Admin: 10/12/21 07:57 Dose: 5,000 units Documented by: [id number] Admin: 10/11/21 08:16 Dose: 5,000 units Documented by: [id number] Admin: 10/10/21 09:07 Dose: 5,000 units Documented by: [id number] Coding Level of Care Code 81014 Inpt Consult Level 3 Diagnoses Acute encephalopathy G93.40 Acute embolic stroke I63.9
[2021-10-16] MEDS ORDERED: SODIUM CHLORIDE 0.9% 1000ML 1,000 ML IV SCH (17:45)
[2021-10-16] MEDS: NYSTATIN POWDER 15GM BTL EXT PRN (19:49)
[2021-10-16] MEDS: ATORVASTATIN 10 MG TAB PO SCH (21:16)
[2021-10-16] MEDS: QUEtiapine FUMARATE 25 MG TABLET PO SCH (21:16)
[2021-10-16] MEDS: MONTELUKAST SODIUM 10 MG TABLET PO SCH (21:16)
[2021-10-17] MEDS: ACETAMINOPHEN 325 MG TAB PO PRN (06:20)
[2021-10-17 07:17] LABS: Base Excess VBG 0.6 mEq/L; Basophils # (auto) 0.03 K/uL (0-0.2); Basophils % (auto) 0.3 %; Eosinophils # (auto) 0.52 K/uL (0-0.5); Eosinophils % (auto) 5.3 %; Hematocrit (blood only) 38.6 % (37-47); Hemoglobin 11.7 g/dL (12.0-16.0); Immature Granulocytes # (auto) 0.02 K/uL (0.00-0.02); Immature Granulocytes % (auto) 0.2 %; Lymphocytes # (auto) 1.65 K/uL (1.2-3.4); Lymphocytes % (auto) 16.9 %; Mean Corpuscular Hemoglobin 29.5 pg (25-34); Mean Corpuscular Hgb Conc 30.3 g/dL (32-36); Mean Corpuscular Volume 97.5 fL (80-100); Mean Platelet Volume 10.1 fL (7.4-10.4); Monocytes # (auto) 0.76 K/uL (0.11-0.59); Monocytes % (auto) 7.8 %; Neutrophils # (auto) 6.76 K/uL (1.4-6.5); Neutrophils % (auto) 69.5 %; Oxygen Saturation VBG 63.8 %; Platelet Count 284 K/uL (130-400); RDW Coefficient of Variation 18.4 % (11.5-14.5); Red Blood Count 3.96 M/uL (4.2-5.4); White Blood Count 9.74 K/uL (4.8-10.8); pH VBG 7.33 (7.36-7.41)
[2021-10-17 07:45] LABS: BUN Creatinine Ratio 17.2 (10-20); Calcium 8.7 mg/dl (8.5-10.1); Creatinine Clr Calc Pharmacy 27.5 ml/min; Est GFR (African American) 31.8 ml/min; Est GFR (Non-African American) 27.4 ml/min; Potassium 4.1 mmol/L (3.5-5.1)
--- NOTE | 2021-10-17 07:54 | Hospitalist Progress Note ---
Date of Service October 17, 2021 Assessment & Plan (1) Acute encephalopathy: Plan: MULTIFACTORIAL -- Stroke/delirium/mood disorder/ insomnia/hypercalcemia/ UTI Admitted with headache, found to have MRI brain with numerous b/l strokes in the posterior and anterior circulations. (of note prior MRI Jul 2021 admitted for CHF and vertigo following URI, noted white matter hyperintense foci favoring extensive small vessel disease and several old lacunar infarcts noted at that time along with several hypointense foci on gradient echo sequence suggesting trace old blood products) ECHO WITHOUT source of thrombus. Could look at aorta for plaque but defer for now. * --> This suggests embolic etiology. * Prior review of chart with elevations in homocysteine and MMA * (did have B12 def at that time) --> placed on B6/folate as well as her usual B12 , could be contributing to hypercoag state? Repeat CT Head evening 10/14 for fall * --> Expected evolutionary changes of left occipital predominant infarcts. Punctate right frontoparietal infarct seen on MRI is not seen on today's exam. No evidence of hemorrhagic conversion. Due to high likelihood for embolic phenomenon she was empirically anticoagulated with heparin drip followed by Eliquis 2.5mg BID (given will be 86 next month, Cr 1.7) Continue ASA 81mg daily Appreciate neurology consult; PT, OT, speech --> PT/OT recommending SNF--> patient with medicare and can go to [facility] when medically stable, possibly Wednesday/Wednesday pending improvement/treatment of UTI owning/delirium/mood disorder/insomnia * possible acute akathisia/restlessness from getting Seroquel + olanzapine x 2 in nights previous which was instructed to be held and since discontinued. If needed ONLY 2.5mg IM but attempting to avoid. * owning --> Seroquel 50mg + Melatonin seem to be effective and will continue * Psych on board and continues to follow -- appreciate continued recommendations/assistance greatly UTI * Repeat UA obtained 10/15 * appeared acutely infected, started on rocephin * Given 10/16 cx with probable pseudomonas, patient switched to Cefepime (day 2) * 10/17 urine cx also growing probable enterococcus * --> Added dose Dapto x 1 10/17 and monitor speciation to determine abx selection for tomorrow Headache * --> had slept most 10/16 and slept awkward in bed and do suspect this contributing. tight paraspinal muscles on exam, massaged and reported to feel better when I left * --> Tylenol 1g Q8H prn. Lidocaine patch/heat * --> Per discussion with psych (consulted 10/16 for assistance with medication management), can given 50mg benadryl this afternoon. * Patient had been sleeping, awoke with continued mild headache. Will admin benadryl as well as some gentle IVF @ 80cc/hr for 500cc. Had been on IVF while sleeping yesterday, Cr improved but still slightly elevated. Will hold lasix today (got this morning) * Avoid further tramadol -- utilize increased tylenol prn Tx of hypercalcemia * Hypercalcemia on admit, checked VIt D, elevated. Stopped home VIt D/calcium supplementation. Repeat Ca wnl (2) Acute embolic stroke: Plan: headache on admission, found to have b/l CVA as above Neuro consulted, MRI/ECHO/A1c/lipid, PT/OT/Speech -- plans for [facility] at d/c [place] to be embolic, Eliquis/ASA at discharge Tx of encephalopathy/UTI as above (3) Hypercalcemia: Plan: as above (4) Hypertension: Plan: On lasix 20mg and lisinopril 20mg BID [employer] Held on admission given CVA, lasix since resumed but given elevated Cr again placed on hold BP well controlled currently Lasix on hold for some mild dehydration, lisinopril on hold as well (slept most of yesterday) Hydralazine prn (5) 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 Hypoxia when sleeping and very likely with underlying sleep apnea Dry at present, lasix/lisinopril on hold as above Monitor, possible resume in AM as mental status improved and improvement in appetite/eating (7) Headache: Plan: resolved -- none reported 10/14 but did have slight headache today likely due to #1, and fall temporal arteritis NOT suspected (8) CKD (chronic kidney disease), stage III: Plan: baseline Cr 1.4 to 1.6 Cr 1.69, slightly above baseline and appears slightly dehydrated -- 2d to sleeping all day 10/16 as had not slept in 3 days prior Hold lasix/lisinopril, gentle IVF for 500cc as above BMP in AM (9) Asthma: Plan: no symptoms at this time -- did have some wheezing 10/16 albuterol admin no further wheezing albuterol prn (10) Hyperlipidemia: Plan: LDL 72. Cont lipitor 10mg daily. (11) Type 2 diabetes mellitus: Plan: HbA1C 6.6% Hold glimepiride Hold metformin basal-bolus insulin regimen per pharmacy glycemic team and able to resume home medications at d/c given good control (12) Chronic respiratory failure with hypoxia and hypercapnia: Plan: stable O2 sats in room air until 10/16 when sleeping most of day -- suspect some degree of sleep apnea/snoring observed --> previously noted needing 2L NC continuously in July 2021 admission. Of note also had HUMPHREY and received venofer x 2 (negative fecal occult) during that admission. Currently 99% on 2L and asked RN to wean to maintain sat 90% or above Hx pulm HTN consider 2 step prior to d/c to demonstrate needs (13) Nausea: Plan: 2nd to aspirin or other cause antiemetics prn KUB with radiolucency and reported concern possible free air 10/[address] which did not indicate free air Some nausea this am but improved after eating breakfast Eating/drinking 10/17 no further episodes this afternoon Continue to monitor (14) DVT prophylaxis: Plan: eliquis 2.5mg BID given going to be 86 next month -- if concern, could increase to 5mg BID then decrease on the , but seems reasonable at this time to continue 2.5mg BID. Will need rx at d/c Plan: From [place], to go to [facility] when medically stable Seroquel 50mg HS, melatonin 6mg. Psych on consult Eliquis/ASA Benadryl x 1 for headache Continue cefepime for pseudomonas UTI (not present on admission), now with enteroccocus species and added dose of Dapto x 1 and monitor cx to see about abx for tomorrow Admission and Anticipated Discharge Date Admission Date: October 11, 2021 Supervising Physician Co-Signing Physician Notes Attending Attestation - Chart reviewed, care plan d/w RYAN Brown. I agree w/ the [place] components of her documentation. Ongoing delirium/encephalopathy - hospital psychosis, UTI, and recent strokes likely all to blame. Delirium improved today. Urine cx with pseudomonas and enterococcus species - cont cefepime for pseudomonas; agree w/ addition of daptomycin for latter pathogen. Cont supportive care otherwise for delirium. Gera Albarran MD Subjective patient evaluated this morning doing much better, slept most of yesterday woke up and back asleep overnight has headache and neck stiffness today, likely from the way she was sleeping. lidocaine patch in place and got tylenol, discussed increased dose. Asked about heating pack -- attempting to obtain. If continued LEDESMA, will admin dose benadryl but ok to wait and see if interventions effective. Discussed UTI and abx therapy, she states she knew about the UTI. Continues on IV abx for such given oral option/resistance. Stated again 1964 like in days prior but knows in [facility]. Nausea this morning but improved after eating lunch this afternoon. No fever, chills, chest pain, shortness of breath, abdominal pain at this time. Review of Systems Review of Systems: All systems reviewed & are unremarkable except as noted in HPI & below Physical Exam Physical Exam: gen - WN, WD, up in bed eating lunch, no acute distress but complaining of neck stiffness/headache. +paraspinal muscle tightness (massaged) eyes -- R sided homonymous hemianopsia ent- slightly dry mm, trachea midline resp: diminished in the bases, no wheezing, on 2L NC with SpO2 99% (asked RN to wean as tolerated) cv: RRR, +murmur, no calf edema, non-tender, pulses palpable gu: +BS, soft, non-tender/no guarding skin; cool, dry neuro: alert and oriented to person/place, not time (stated 1964 again), equal strength, speech clear finger/nose/finger with modest ataxia on LEFT, no facial droop appreciated, strength 5/5 b/l psych: aox2, not time (easily re-oriented to October), cooperative Results & Data Results & Data ([facility]) Vital Signs (Past 12 Hours) Vital Signs Temp Pulse Resp BP BP Pulse Ox 10/17/21 07:41 36.4 C L 68 16 118/68 99 01/13/22 23:41 37.1 C 73 18 118/55 L 98 Laboratory Results 10/17/21 10/17/21 10/17/21 Range/Units 07:37 07:04 07:04 WBC 9.74 (4.8-10.8) K/uL RBC 3.96 L (4.2-5.4) M/uL Hgb 11.7 L (12.0-16.0) g/dL Hct 38.6 (37-47) % MCV 97.5 (80-100) fL MCH 29.5 (25-34) pg MCHC 30.3 L (32-36) g/dL RDW Std Deviation 66.0 H (36.4-46.3) fL RDW Coeff of Shama 18.4 H (11.5-14.5) % Plt Count 284 (130-400) K/uL MPV 10.1 (7.4-10.4) fL Immature Gran % (Auto) 0.2 % Neut % (Auto) 69.5 % Lymph % (Auto) 16.9 % [place] % (Auto) 7.8 % Eos % (Auto) 5.3 % Baso % (Auto) 0.3 % Neut # (Auto) 6.76 H (1.4-6.5) K/uL Lymph # (Auto) 1.65 (1.2-3.4) K/uL [place] # (Auto) 0.76 H (0.11-0.59) K/uL Eos # (Auto) 0.52 H (0-0.5) K/uL Baso # (Auto) 0.03 (0-0.2) K/uL Immature Gran # (Auto) 0.02 (0.00-0.02) K/uL VBG pH 7.33 L (7.36-7.41) VBG pCO2 54 H (38-50) mmHg VBG pO2 35 mmHg VBG HCO3 28 mmol/L VBG O2 Saturation 63.8 % VBG Base Excess 0.6 mEq/L Barometric Pressure 729.0 mm/Hg Sodium (136-145) mmol/L Potassium (3.5-5.1) mmol/L Chloride (98-107) mmol/L Carbon Dioxide (21-32) mmol/L Anion Gap (3-11) BUN (6-23) mg/dl Creatinine (0.6-1.2) mg/dl Est Cr Clr Drug Dosing ml/min Est GFR ( Amer) ml/min Est GFR (Non-Af Amer) ml/min BUN/Creatinine Ratio (10-20) Glucose (70-99) mg/dl POC Glucose 159 H (70-99) mg/dl Calcium (8.5-10.1) mg/dl Total Bilirubin (0.2-1.0) mg/dl AST (13-39) U/L ALT (7-52) U/L Alkaline Phosphatase (34-104) U/L Total Protein (6.0-8.3) gm/dl Albumin (3.4-5.0) gm/dl Globulin (2.5-4.0) gm/dl Albumin/Globulin Ratio (0.9-2) 10/17/21 10/16/21 10/16/21 Range/Units 07:04 20:32 17:40 WBC (4.8-10.8) K/uL RBC (4.2-5.4) M/uL Hgb (12.0-16.0) g/dL Hct (37-47) % MCV (80-100) fL MCH (25-34) pg MCHC (32-36) g/dL RDW Std Deviation (36.4-46.3) fL RDW Coeff of Shama (11.5-14.5) % Plt Count (130-400) K/uL MPV (7.4-10.4) fL Immature Gran % (Auto) % Neut % (Auto) % Lymph % (Auto) % [place] % (Auto) % Eos % (Auto) % Baso % (Auto) % Neut # (Auto) (1.4-6.5) K/uL Lymph # (Auto) (1.2-3.4) K/uL [place] # (Auto) (0.11-0.59) K/uL Eos # (Auto) (0-0.5) K/uL Baso # (Auto) (0-0.2) K/uL Immature Gran # (Auto) (0.00-0.02) K/uL VBG pH (7.36-7.41) VBG pCO2 (38-50) mmHg VBG pO2 mmHg VBG HCO3 mmol/L VBG O2 Saturation % VBG Base Excess mEq/L Barometric Pressure mm/Hg Sodium 140 (136-145) mmol/L Potassium 4.1 (3.5-5.1) mmol/L Chloride 105 (98-107) mmol/L Carbon Dioxide 28 (21-32) mmol/L Anion Gap 7 (3-11) BUN 29 H (6-23) mg/dl Creatinine 1.69 H (0.6-1.2) mg/dl Est Cr Clr Drug Dosing 27.5 ml/min Est GFR ( Amer) 31.8 ml/min Est GFR (Non-Af Amer) 27.4 ml/min BUN/Creatinine Ratio 17.2 (10-20) Glucose 170 H (70-99) mg/dl POC Glucose 129 H 148 H (70-99) mg/dl Calcium 8.7 (8.5-10.1) mg/dl Total Bilirubin (0.2-1.0) mg/dl AST (13-39) U/L ALT (7-52) U/L Alkaline Phosphatase (34-104) U/L Total Protein (6.0-8.3) gm/dl Albumin (3.4-5.0) gm/dl Globulin (2.5-4.0) gm/dl Albumin/Globulin Ratio (0.9-2) 10/16/21 10/16/21 Range/Units 10:59 07:25 WBC (4.8-10.8) K/uL RBC (4.2-5.4) M/uL Hgb (12.0-16.0) g/dL Hct (37-47) % MCV (80-100) fL MCH (25-34) pg MCHC (32-36) g/dL RDW Std Deviation (36.4-46.3) fL RDW Coeff of Shama (11.5-14.5) % Plt Count (130-400) K/uL MPV (7.4-10.4) fL Immature Gran % (Auto) % Neut % (Auto) % Lymph % (Auto) % [place] % (Auto) % Eos % (Auto) % Baso % (Auto) % Neut # (Auto) (1.4-6.5) K/uL Lymph # (Auto) (1.2-3.4) K/uL [place] # (Auto) (0.11-0.59) K/uL Eos # (Auto) (0-0.5) K/uL Baso # (Auto) (0-0.2) K/uL Immature Gran # (Auto) (0.00-0.02) K/uL VBG pH (7.36-7.41) VBG pCO2 (38-50) mmHg VBG pO2 mmHg VBG HCO3 mmol/L VBG O2 Saturation % VBG Base Excess mEq/L Barometric Pressure mm/Hg Sodium 140 (136-145) mmol/L Potassium 4.2 (3.5-5.1) mmol/L Chloride 104 (98-107) mmol/L Carbon Dioxide 26 (21-32) mmol/L Anion Gap 10 (3-11) BUN 23 (6-23) mg/dl Creatinine 1.45 H (0.6-1.2) mg/dl Est Cr Clr Drug Dosing 32.0 ml/min Est GFR ( Amer) 38.2 ml/min Est GFR (Non-Af Amer) 33.0 ml/min BUN/Creatinine Ratio 15.9 (10-20) Glucose 180 H (70-99) mg/dl POC Glucose 148 H (70-99) mg/dl Calcium 8.6 (8.5-10.1) mg/dl Total Bilirubin 0.4 (0.2-1.0) mg/dl AST 19 (13-39) U/L ALT 11 (7-52) U/L Alkaline Phosphatase 84 (34-104) U/L Total Protein 6.0 (6.0-8.3) gm/dl Albumin 3.3 L (3.4-5.0) gm/dl Globulin 2.7 (2.5-4.0) gm/dl Albumin/Globulin Ratio 1.2 (0.9-2) PG Care Time/CCT Total # of Minutes Spent Total Time Spent with Patient: Total time spent is greater than 50% in coordination of care (as documented) at patient's floor/unit and/or counseling patient: Coding Level of Care Code 36853 Subseq Hosp Care Lvl 3 Diagnoses Acute encephalopathy G93.40 Acute embolic stroke I63.9 Hypercalcemia E83.52 Hypertension I10 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
--- NOTE | 2021-10-17 09:19 | Pharmacy Report ---
Pharmacy Glycemic Short Note 2 - Date of Service October 17, 2021 - Glycemic Short BSG Results (Last 24 hours): 10/16/21 10/16/21 10/16/21 10:59 17:40 20:32 Glucose POC Glucose 148 H 148 H 129 H 10/17/21 10/17/21 07:04 07:37 Glucose 170 H POC Glucose 159 H OUTPATIENT ANTIDIABETIC REGIMEN: * Amaryl 1 mg daily * Metformin 500 mg BID * HbA1c: 6.6% (10/10/21) ASSESSMENT: 10/17: * BSGs yesterday were controlled at [phone] mg/dL. Received 15 units of Lantus and 4 units of Novolog (TDD = 19 units) * Fasting BSG above goal for several days now, 159 mg/dL this AM. Will increase Lantus slightly this AM. * Postprandials well controlled. No change in Novolog necessary. 10/15: * BSGs yesterday of 167, 207, 59, and 142 mg/dL * Received 27 units of insulin (15 of which was basal) * Fasting BSG of 140 mg/dL this morning - will continue increased dose of Lantus 15 units daily * Given low BSG at dinner, will loosen lunch, dinner, HS Novolog parameters PLAN FOR INPATIENT GLYCEMIC CONTROL: * Hold outpatient oral diabetes medications * Basal insulin - increased * Lantus 18 units SC daily * Bolus insulin * NovoLog per scale ACHS or Q6hrs while NPO * Goal Range: Low 110 mg/dL - High 140 mg/dL at breakfast, 120-150 mg/dL with lunch, dinner, and HS * Correction Factor: 20 mg/dL/unit with breakfast, 35 mg//dL/unit with lunch, dinner, and HS * Nutritional / Prandial insulin per carb ratio of 1 unit per 6 grams CHO consumed, 1 unit per 12 grams CHO consumed with lunch, dinner, HS PLAN FOR DISCHARGE: * HbA1C = 6.6% on 10/10/21 * Goal A1c is less than 8% in this patient given her age and co-morbidities. A1c of 6.6% indicates that she is a well controlled diabetic at home with only oral anti-diabetic meds. * Recommend continue current meds (Metformin 500 mg BID with meals and Amaryl 1 mg daily with a meal) on discharge as long as patient is not reporting hypoglycemia at home.
--- NOTE | 2021-10-17 09:58 | Psychiatric Progress Note ---
Date of Service October 17, 2021 Impression / Recommendations Impression This is a 85 yo old admitted for CVA and confusion. Diagnostically consistent with acute encephalopathy likely superimposed on dementia with behavioral disturbance which is what prior to admission seroquel was being used for I suspect. Goal in dementia is to avoid medication management of behaviors if possible by maximizing non-pharmacologic strategies for behavioral management. However, given worsening agitation/aggression and delirium antipsychotic risk/benefit profile favors treatment. Note all antipsychotic medications carry black box warning for increased risk of all-cause mortality in setting of demen tia. 10/17/21: Delirium appears to be improving with UTI treatment vs waxing and waning with period of improvement this morning. Neck stiffness seems most likely related to pain but could be acute dystonic reaction to recent increased dosages of antipsychotics required for agitation. Discussed with hospitalist provider who will give her lidocaine patch to help with pain and if movement doesn't im prove as pain resolves recommend giving benadryl 50mg po x1. Reluctant to move to this as empiric trial first as it has a high likelihood of significantly worsening delirium again. -Agree with utilizing 1-on-1 when needed if agitation worsens, try to avoid when possible -trial of benadryl 50mg po x1 if neck stiffness does not resolve throughout the day with pain management strategies -c/w seroquel 50 mg qhs (If unsuccessful we could consider split dosing 25mg BID or next step would be risperidone trial-risperidone 0.25 mg qd and can titrate up to maximum of 1mg qd). -melatonin 6mg qhs -Continue medical management of underlying causes contributing to delirium, avoid or limit use of deliriogenic medications (benzodiazepines, opioids, anticholinergics) -Continue with delirium prevention measures: raising blinds during the day, closing at night, frequent re-orientation, contact with family/friends, explaining procedures/nursing care measures prior to physical contact, correct any hearing and visual impairments -For behavioral emergency: olanzapine 2.5 mg IM x 1 but try to avoid as may be contributing to paradoxical reaction(DO NOT exceed 5mg per 24 hours, check EKG if IM dose required, NEVER co-administer with IM or IV benzodiazepines). -They do not meet criteria for inpatient psychiatric hospitalization as primary cause of current symptoms is felt to be due to delirium and/or dementia (1) Acute encephalopathy: (2) Acute embolic stroke: see impression above Interval History Identifying Information 85 yo woman with history of CHF, COPD on oxygen, CKD III, HLD, HTN, JOSEFINA and on seroquel for reported mood disorder admitted medically and being managed for acute delirium in setting of multiple CVAs, UTI. Psychiatry was consulted for increasing agitation and delirium management. Chief Complaint "I'm terrible I'm hurting so bad". Review of Systems Notes Reports good sleep, stable appetite Subjective Subjective Patient was seen & assessed and interval progress reviewed. She slept overnight and when awake was appropriate per nursing notes. This morning she reports good sleep. Knows she is in the hospital ([facility]) and thinks it is March and 1938. Re-oriented her and she remarked "that's right I knew it was October". She was sitting up in bed and drinking. Reviewed that she is having pain in her ears. She had difficulty turning her head to look out the window which she states is new and started about 1-2 days ago. States it is painful to turn her head. Denies any other muscle stiffness and none appreciated on exam. Physical Exam Psychiatric Orientation: alert, oriented to person, oriented to place and cooperative; + not oriented to time Apperance: appropriately dressed Eye Contact: good eye contact Motor Behavior: + abnormal motor movements (neck stiffness, difficulty turning head), no psychomotor agitation and n akathisia Speech: + abnormal rate/rhythm/volume of speech (difficult to understand at times but fairly clear) Affect: euthymic affect Mood: no irritable mood (endorses pain, but pleasant) Thought Process: goal directed thought process and + looseness of associations Thought Content: reality based without delusions Suicidal Thoughts: denies suicidal thoughts Homicidal Thoughts: denies homicidal thoughts Hallucinations: no auditory hallucinations (per chart ) and no visual halluci nations Cognition: remote memory grossly intact, attention grossly intact and language grossly intact; + recent memory not intact Insight: + impaired insight Judgement: + impaired judgement Vital Signs (Past 24 Hours) Last Vital Signs Temp 36.4 C L 10/17/21 07:41 Pulse 68 10/17/21 07:41 Resp 16 10/17/21 07:41 BP 118/68 10/17/21 07:41 Pulse Ox 99 10/17/21 07:41 Results & Data ([facility]) Laboratory Results Laboratory Results - last 24 hr 0110/16/21 10/16/21 10:59 17:40 20:32 WBC RBC Hgb Hct MCV MCH MCHC RDW Std Deviation RDW Coeff of Shama Plt Count MPV Immature Gran % (Auto) Neut % (Auto) Lymph % (Auto) [place] % (Auto) Eos % (Auto) Baso % (Auto) Neut # (Auto) Lymph # (Auto) [place] # (Auto) Eos # (Auto) Baso # (Auto) Immature Gran # (Auto) VBG pH VBG pCO2 VBG pO2 VBG HCO3 VBG O2 Saturation VBG Base Excess Barometric Pressure Sodium Potassium Chloride Carbon Dioxide Anion Gap BUN Creatinine Est Cr Clr Drug Dosing Est GFR ( Amer) Est GFR (Non-Af Amer) BUN/Creatinine Ratio Glucose POC Glucose 148 H 148 H 129 H Calcium 10/17/21 10/17/21 10/17/21 07:04 07:04 07:04 WBC 9.74 RBC 3.96 L Hgb 11.7 L Hct 38.6 MCV 97.5 MCH 29.5 MCHC 30.3 L RDW Std Deviation 66.0 H RDW Coeff of Shama 18.4 H Plt Count 284 MPV 10.1 Immature Gran % (Auto) 0.2 Neut % (Auto) 69.5 Lymph % (Auto) 16.9 [place] % (Auto) 7.8 Eos % (Auto) 5.3 Baso % (Auto) 0.3 Neut # (Auto) 6.76 H Lymph # (Auto) 1.65 [place] # (Auto) 0.76 H Eos # (Auto) 0.52 H Baso # (Auto) 0.03 Immature Gran # (Auto) 0.02 VBG pH 7.33 L VBG pCO2 54 H VBG pO2 35 VBG HCO3 28 VBG O2 Saturation 63.8 VBG Base Excess 0.6 Barometric Pressure 729.0 Sodium 140 Potassium 4.1 Chloride 105 Carbon Dioxide 28 Anion Gap 7 BUN 29 H Creatinine 1.69 H Est Cr Clr Drug Dosing 27.5 Est GFR ( Amer) 31.8 Est GFR (Non-Af Amer) 27.4 BUN/Creatinine Ratio 17.2 Glucose 170 H POC Glucose Calcium 8.7 10/17/21 07:37 WBC RBC Hgb Hct MCV MCH MCHC RDW Std Deviation RDW Coeff of Shama Plt Count MPV Immature Gran % (Auto) Neut % (Auto) Lymph % (Auto) [place] % (Auto) Eos % (Auto) Baso % (Auto) Neut # (Auto) Lymph # (Auto) [place] # (Auto) Eos # (Auto) Baso # (Auto) Immature Gran # (Auto) VBG pH VBG pCO2 VBG pO2 VBG HCO3 VBG O2 Saturation VBG Base Excess Barometric Pressure Sodium Potassium Chloride Carbon Dioxide Anion Gap BUN Creatinine Est Cr Clr Drug Dosing Est GFR ( Amer) Est GFR (Non-Af Amer) BUN/Creatinine Ratio Glucose POC Glucose 159 H Calcium Current Inpatient Medications Current Inpatient Medications: Current Inpatient Medications Acetaminophen (Acetaminophen 325 Mg Tab) 650 mg PO Q4H PRN PRN Reason: Pain or Fever Stop: 11/09/21 01:44 Last Admin: 10/17/21 06:20 Dose: 650 mg Documented by: Albuterol (Albuterol Hfa 8 Gm Inhaler) 2 puffs INH Q6H PRN PRN Reason: shortness of breath or wheezin Stop: 11/09/21 01:44 Amlodipine Besylate (Amlodipine Besylate 5 Mg Tab) 5 mg PO DAILY JOVI Stop: 11/09/21 08:59 Last Admin: 10/13/21 08:12 Dose: 5 mg Documented by: Apixaban (Apixaban 2.5 Mg Tab) 2.5 mg PO BID [facility], [facility]1983 Stop: 11/10/21 20:59 Last Admin: 10/16/21 21:16 Dose: 2.5 mg Documented by: Artificial Tears (Artificial Tears) 1 drops OP DAILY PRN PRN Reason: Dry Eyes Stop: 11/09/21 02:26 Aspirin (Aspirin 81 Mg Ectab) 81 mg PO DAILY JOVI Stop: 11/09/21 08:59 Last Admin: 10/16/21 08:18 Dose: Not Given Documented by: Atorvastatin Calcium (Atorvastatin 10 Mg Tab) 10 mg PO HS [facility], [facility]1983 Stop: 11/09/21 20:59 Last Admin: 10/16/21 21:16 Dose: 10 mg Documented by: Cyanocobalamin (Cyanocobalamin 1000 Mcg/Ml Vial) 1,000 mcg IM 10/26/21@0900 JOVI Stop: 10/26/21 09:01 Dextrose (Dextrose 50% 50 Ml Syringe) 25 - 50 ml IV UD PRN; Protocol PRN Reason: Hypoglycemia Protocol Stop: 11/09/21 03:59 Fluticasone/Vilanterol (Fluticasone/Vilanterol 100/25mcg 14 Puffs/Inhaler) 1 puffs INH DAILY JOVI Stop: 11/09/21 08:59 Last Admin: 10/16/21 08:18 Dose: Not Given Documented by: Folic Acid (Folic Acid 1 Mg Tab) 1 mg PO QAM JOVI Stop: 11/14/21 08:59 Last Admin: 10/16/21 08:18 Dose: Not Given Documented by: Furosemide (Furosemide 20 Mg Tab) 20 mg PO DAILY JOVI Stop: 11/09/21 08:59 Last Admin: 10/16/21 08:19 Dose: Not Given Documented by: Glucagon (Glucagon For Inj 1 Mg Vial) 1 mg IM UD PRN; Protocol PRN Reason: Hypoglycemia Protocol Stop: 11/09/21 03:59 Glucose (Glucose 40% Gel 15 Gm Tube) 15 - 30 gm PO UD PRN; Protocol PRN Reason: Hypoglycemia Protocol Stop: 11/09/21 03:59 Glucose (Glucose 10 Tabs/Tube) 4 - 8 tabs PO UD PRN; Protocol PRN Reason: Hypoglycemia Protocol Stop: 11/09/21 03:59 Guaifenesin (Guaifenesin 600 Mg Tabcr) 600 mg PO Q12H PRN PRN Reason: Congestion Stop: 11/09/21 01:44 Hydralazine HCl (Hydralazine Hcl 20 Mg/Ml Vial) 5 mg IV Q8H PRN PRN Reason: hypertension Stop: 11/13/21 08:21 Cefepime HCl 2,000 mg/ Syringe 20 mls @ 5 mls/min IV Q24H JOVI; Protocol Stop: 10/21/21 12:59 Last Admin: 10/16/21 14:26 Dose: 5 mls/min Documented by: Insulin Aspart (Insulin Aspart Per Unit) 0 units SC DAILY@0730 JOVI; Protocol Stop: 11/09/21 03:59 Last Admin: 10/16/21 08:21 Dose: 2 units Documented by: Insulin Aspart (Insulin Aspart Per Unit) 0 units SC 1130,1630,2100 JOVI; Protocol Stop: 11/12/21 11:29 Last Admin: 10/16/21 21:17 Dose: Not Given Documented by: Insulin Glargine (Insulin Glargine Solostar 100 Units/Ml 3 Ml Pen) 18 [facility] [place]; Protocol Stop: 11/11/21 08:59 Lisinopril (Lisinopril 20 Mg Tab) 20 mg PO BID [facility], [facility] Stop: 11/13/21 08:59 Last Admin: 10/16/21 08:19 Dose: Not Given Documented by: Melatonin (Melatonin 3 Mg Tab) 6 mg PO HS PRN PRN Reason: Sleep Stop: 11/13/21 18:09 Miscellaneous (Carbohydrates For Hypoglycemia ) 15 - 30 gm PO UD PRN PRN Reason: Hypoglycemia Treatment Stop: 11/09/21 03:59 Last Admin: 10/14/21 17:05 Dose: 15 gm Documented by: Miscellaneous Information (Pharmacy Glycemic Mgmt Consult) 1 ea N/A UD PRN PRN Reason: Consult Stop: 11/09/21 01:44 Montelukast Sodium (Montelukast Sodium 10 Mg Tablet) 10 mg PO HS [facility] Stop: 11/09/21 20:59 Last Admin: 10/16/21 21:16 Dose: 10 mg Documented by: Nitroglycerin (Nitroglycerin Sl 0.4 Mg/Tab Tab) 0.4 mg SL UD PRN PRN Reason: Chest Pain Stop: 11/09/21 01:44 Nystatin (Nystatin Powder 15gm Btl) 1 appln EXT TID PRN PRN Reason: irritation Stop: 11/09/21 01:44 Last Admin: 10/16/21 19:49 Dose: 1 appln Documented by: Pantoprazole Sodium (Pantoprazole 40 Mg Tab) 40 mg PO DAILY [facility] Stop: 11/09/21 08:59 Last Admin: 10/16/21 08:19 Dose: Not Given Documented by: Polyethylene Glycol (Polyethylene (Miralax) 17 Gm Pack) 17 gm PO DAILY PRN PRN Reason: Constipation Stop: 11/09/21 01:44 Last Admin: 10/14/21 15:31 Dose: 17 gm Documented by: Polysaccharide Iron Complex (Iron Polysaccharide Complex 150 Mg Capsule) 150 mg PO DAILY [facility] Stop: 11/09/21 08:59 Last Admin: 10/16/21 08:19 Dose: Not Given Documented by: Pyridoxine HCl (Pyridoxine Hcl 50 Mg Tab) 50 [facility] [place] Stop: 11/14/21 08:59 Last Admin: 10/16/21 08:19 Dose: Not Given Documented by: Quetiapine Fumarate (Quetiapine Fumarate 25 Mg Tablet) 50 mg PO [facility] Stop: 11/15/21 20:59 Last Admin: 10/16/21 21:16 Dose: 50 mg Documented by: Senna/Docusate Sodium (Docusate Sodium/Senna 50/8.6mg Tab) 1 tab [facility] [place] Stop: 11/14/21 08:59 Last Admin: 10/16/21 08:18 Dose: Not Given Documented by: Sennosides (Senna 8.6 Mg Tab) 8.6 mg PO DAILY PRN PRN Reason: Constipation Stop: 11/09/21 01:44 Tramadol HCl (Tramadol Hcl 50 Mg Tablet) 50 mg PO Q8H PRN PRN Reason: Pain Stop: 11/10/21 15:29 Last Admin: 10/15/21 09:00 Dose: 50 mg Documented by:
[2021-10-17] MEDS: DOCUSATE SODIUM/SENNA 50/8.6MG TAB PO SCH (10:27)
[2021-10-17] MEDS: ACETAMINOPHEN 500 MG TAB PO PRN ×2 (10:28→22:20)
[2021-10-17] MEDS: FUROSEMIDE 20 MG TAB PO SCH (10:28)
[2021-10-17] MEDS: PYRIDOXINE HCL 50 MG TAB PO SCH (10:29)
[2021-10-17] MEDS: FOLIC ACID 1 MG TAB PO SCH (10:29)
[2021-10-17] MEDS: ASPIRIN 81 MG ECTAB PO SCH (10:30)
[2021-10-17] MEDS: PANTOprazole 40 MG TAB PO SCH (10:30)
[2021-10-17] MEDS: IRON POLYSACCHARIDE COMPLEX 150 MG CAPSULE PO SCH (10:30)
[2021-10-17] MEDS: INSULIN GLARGINE SOLOSTAR 100 UNITS/ML 3 ML PEN SC SCH (10:33)
[2021-10-17] MEDS: INSULIN ASPART PER UNIT SC SCH ×4 (10:34→21:57)
[2021-10-17] MEDS: FLUTICASONE/VILANTEROL 100/25MCG 14 PUFFS/INHALER INH SCH (10:35)
[2021-10-17] MEDS: LIDOCAINE 5% 1 PATCH TD SCH (12:30)
[2021-10-17] MEDS: APIXABAN 2.5 MG TAB PO SCH ×2 (12:31→21:50)
[2021-10-17] MEDS: CEFEPIME 2,000 MG in SYRINGE 0 ML IV SCH (12:31)
[2021-10-17] MEDS ORDERED: diphenhydrAMINE Capsule 25 MG CAP PO ONE (15:18)
[2021-10-17] MEDS ORDERED: SODIUM CHLORIDE 0.9% 500 ML IV SCH (15:30)
[2021-10-17] MEDS ORDERED: DAPTOmycin 425 MG in SYRINGE 0 ML IV SCH (16:00)
[2021-10-17] MEDS: ATORVASTATIN 10 MG TAB PO SCH (21:48)
[2021-10-17] MEDS: MONTELUKAST SODIUM 10 MG TABLET PO SCH (21:48)
[2021-10-17] MEDS: QUEtiapine FUMARATE 25 MG TABLET PO SCH (21:49)
[2021-10-17] MEDS: lisinopril 20 MG TAB PO SCH (22:21)
--- NOTE | 2021-10-18 07:57 | Hospitalist Progress Note ---
Date of Service October 18, 2021 Assessment & Plan (1) Acute encephalopathy: Plan: MULTIFACTORIAL -- Stroke/delirium/mood disorder/ insomnia/hypercalcemia/ UTI Admitted with headache, found to have MRI brain with numerous b/l strokes in the posterior and anterior circulations. (of note prior MRI Jul 2021 admitted for CHF and vertigo following URI, noted white matter hyperintense foci favoring extensive small vessel disease and several old lacunar infarcts noted at that time along with several hypointense foci on gradient echo sequence suggesting trace old blood products) ECHO WITHOUT source of thrombus. Could look at aorta for plaque but defer for now. * --> This suggests embolic etiology. * Prior review of chart with elevations in homocysteine and MMA * (did have B12 def at that time) --> placed on B6/folate as well as her usual B12 , could be contributing to hypercoag state? Repeat CT Head evening 10/14 for fall * --> Expected evolutionary changes of left occipital predominant infarcts. Punctate right frontoparietal infarct seen on MRI is not seen on today's exam. No evidence of hemorrhagic conversion. Due to high likelihood for embolic phenomenon she was empirically anticoagulated with heparin drip followed by Eliquis 2.5mg BID (given will be 86 next month, Cr 1.7) Continue ASA 81mg daily Appreciate neurology consult; PT, OT, speech --> PT/OT recommending SNF --> patient with medicare and can go to [facility] when medically stable however possible may need to stay inpatient on IV abx pending cultures as below Sundowning/delirium/mood disorder/insomnia * possible acute akathisia/restlessness from getting Seroquel + olanzapine x 2 in nights previous which was instructed to be held and since discontinued. If needed ONLY 2.5mg IM but attempting to avoid. * Sundowning --> Seroquel 50mg + Melatonin prn (has not needed further) seem to be effective and will continue * Psych on board and continues to follow -- appreciate continued recommendations/assistance greatly * +benadryl 50mg x 1 on 10/17 for headache, improved today but having neck discomfort -- from meds/sleeping in bed. * --> tylenol 1gm x 1 now, add voltaren gel. monitor response. * Psych following -- appreciate continued assistance/monitoring UTI * Repeat UA obtained 10/15 * appeared acutely infected, started on rocephin * Given 10/16 cx with probable pseudomonas, patient switched to Cefepime (started 10/16, day 3) * 10/17 urine cx also growing probable enterococcus * --> Added dose Dapto x 1 10/17 and monitor speciation to determine abx selection for tomorrow. * Continued speciation and if no results by later today will repeat dose Dapto and monitor Headache * --> had slept most 10/16 and slept awkward in bed and do suspect this contributing. tight paraspinal muscles on exam, massaged and reported to feel better when I left * --> Tylenol 1g Q8H prn. Lidocaine patch/heat * --> Per discussion with psych (consulted 10/16 for assistance with medication management), can given 50mg benadryl this afternoon. * Patient had been sleeping, awoke with continued mild headache. Will admin benadryl as well as some gentle IVF @ 80cc/hr for 500cc. Had been on IVF while sleeping yesterday, Cr improved but still slightly elevated. Will hold lasix today (got this morning) * Avoid further tramadol -- utilize increased tylenol prn --> 1gm x 1 now, add voltaren for tightness * Got benadryl x 1 as above 10/17, consider repeating dose but only if absolutely neccessary Tx of hypercalcemia * Hypercalcemia on admit, checked VIt D, elevated. Stopped home VIt D/calcium supplementation. Repeat Ca wnl (2) Acute embolic stroke: Plan: headache on admission, found to have b/l CVA as above Neuro consulted, MRI/ECHO/A1c/lipid, PT/OT/Speech -- plans for [facility] at d/c [place] to be embolic, Eliquis/ASA at discharge Tx of encephalopathy/UTI as above (3) Hypercalcemia: Plan: as above (4) Hypertension: Plan: On lasix 20mg and lisinopril 20mg BID [employer] Held on admission given CVA, lasix since resumed but given elevated Cr again placed on hold BP well controlled currently 164/65 and will continue lisinopril, lasix on hold for today, but ordered to resume in am as initially on hold for some dehydration while sleeping most of days prior Hydralazine prn (5) 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: Plan: see #1 above should have ophtho f/u post-discharge (6) (HFpEF) heart failure with preserved ejection fraction: Plan: no decompensation cont lasix less dehydrated and continued home medications, resume lasix in am Hx Pulm HTN on 2L NC continuous but had been on RA --> back to 93% on RA Hypoxia when sleeping and very likely with underlying sleep apnea (7) Headache: Plan: resolved, then again 10/17 after sleeping all day crooked in bed 10/16 Benadryl x 1 as above, tylenol increased to 1gm Q8H prn and asked rn to admin x 1 now Voltaren to neck temporal arteritis NOT suspected (8) CKD (chronic kidney disease), stage III: Plan: baseline Cr 1.4 to 1.6 Cr 1.46 Continue lisinopril, lasix to resume in AM BMP in AM (9) Asthma: Plan: no symptoms at this time -- did have some wheezing 10/16 albuterol admin, again admin am 10/18 no wheezing on exam albuterol prn (10) Hyperlipidemia: Plan: LDL 72. Cont lipitor 10mg daily. (11) Type 2 diabetes mellitus: Plan: HbA1C 6.6% Hold glimepiride Hold metformin basal-bolus insulin regimen per pharmacy glycemic team and able to resume home medications at d/c given good control (12) Chronic respiratory failure with hypoxia and hypercapnia: Plan: stable O2 sats in room air until 10/16 when sleeping most of day -- suspect some degree of sleep apnea/snoring observed --> previously noted needing 2L NC continuously in July 2021 admission. Of note also had HUMPHREY and received venofer x 2 (negative fecal occult) during that admission. Currently 93% on RA Hx pulm HTN --> will check overnight study now on room air as likely with underlying JOSEFINA consider 2 step prior to d/c to re-demonstrate if any needs w/ ambulation (13) Nausea: Plan: 2nd to aspirin or other cause antiemetics prn KUB with radiolucency and reported concern possible free air 10/[address] which did not indicate free air No nausea reported today Continue to monitor (14) DVT prophylaxis: Plan: eliquis 2.5mg BID given going to be 86 next month -- if concern, could increase to 5mg BID then decrease on the , but seems reasonable at this time to continue 2.5mg BID. Will need rx at d/c Plan: From [place], to go to [facility] when medically stable Seroquel 50mg HS, melatonin 6mg. Psych on consult Eliquis/ASA Benadryl x 1 for headache Continue cefepime for pseudomonas UTI (not present on admission), now with enteroccocus species and added dose of Dapto x 1 10/17, repeat if not speciated. likely to remain inpatient on abx to complete treatment but will monitor final cx/sensitivities. consider US guided IV if able to accommodate at [facility] but would not be surprised if remains inpatient until early next week Admission and Anticipated Discharge Date Admission Date: October 11, 2021 Subjective patient evaluated this morning slept overnight doing well today stated oct to RN this morning and knows October currently but wrong on year at times, easily reoriented. Does still have some mild confusion at times, but answering questions appropriately Sick of chicken and mashed potatoes. Discussed to let us know if wants something specifically. no fever, chills, chest pain. did have some tightness/wheezing with her underlying asthma and used inh this morning and reports no further issue. no abdominal pain or nausea at this time. having neck muscle tightness today, headache improved from days prior. will ask RN to admin 1000mg tylenol, monitor. also topical voltaren to relief to see if effective as would want to avoid further Benadryl if possible given still slightly confused at times. No agitation/aggression reported by nursing staff overnight. Review of Systems Review of Systems: All systems reviewed & are unremarkable except as noted in HPI & below Physical Exam Physical Exam: gen - WN, WD, sitting up in bed, no acute distress. +paraspinal neck muscle tightness, tender to palpation eyes -- R sided homonymous hemianopsia ent- mmm, trachea midline resp: diminished in the bases, no wheezing, on room air cv: RRR, +murmur, no calf edema, non-tender, pulses palpable gu: +BS, soft, non-tender/no guarding skin; warm, dry neuro: alert and oriented to person/place, not time (stated 1966 again), equal strength, speech clear finger/nose/finger with modest ataxia on LEFT, no facial droop appreciated, strength 5/5 b/l psych: aox2, not time (knows october, but states 1964, easily re-oriented), cooperative Results & Data Results & Data ([facility]) Vital Signs (Past 12 Hours) Vital Signs Temp Pulse Resp BP BP Pulse Ox 10/18/21 07:47 36.6 C 64 18 164/65 H 93 10/18/21 04:00 36.8 C 72 18 128/71 96 10/17/21 23:47 36.8 C 76 18 147/77 H 95 Laboratory Results 10/18/21 10/18/21 10/18/21 Range/Units 11:23 09:35 09:35 WBC 9.12 (4.8-10.8) K/uL RBC 4.27 (4.2-5.4) M/uL Hgb 12.4 (12.0-16.0) g/dL Hct 40.5 (37-47) % MCV 94.8 (80-100) fL MCH 29.0 (25-34) pg MCHC 30.6 L (32-36) g/dL RDW Std Deviation 61.8 H (36.4-46.3) fL RDW Coeff of Shama 17.9 H (11.5-14.5) % Plt Count 321 (130-400) K/uL MPV 10.0 (7.4-10.4) fL Immature Gran % (Auto) 0.2 % Neut % (Auto) 69.6 % Lymph % (Auto) 18.4 % [place] % (Auto) 6.1 % Eos % (Auto) 5.3 % Baso % (Auto) 0.4 % Neut # (Auto) 6.34 (1.4-6.5) K/uL Lymph # (Auto) 1.68 (1.2-3.4) K/uL [place] # (Auto) 0.56 (0.11-0.59) K/uL Eos # (Auto) 0.48 (0-0.5) K/uL Baso # (Auto) 0.04 (0-0.2) K/uL Immature Gran # (Auto) 0.02 (0.00-0.02) K/uL Sodium 139 (136-145) mmol/L Potassium 3.8 (3.5-5.1) mmol/L Chloride 105 (98-107) mmol/L Carbon Dioxide 27 (21-32) mmol/L Anion Gap 7 (3-11) BUN 27 H (6-23) mg/dl Creatinine 1.46 H (0.6-1.2) mg/dl Est Cr Clr Drug Dosing 31.8 ml/min Est GFR ( Amer) 37.9 ml/min Est GFR (Non-Af Amer) 32.7 ml/min BUN/Creatinine Ratio 18.5 (10-20) Glucose 152 H (70-99) mg/dl POC Glucose 83 (70-99) mg/dl Calcium 8.8 (8.5-10.1) mg/dl AST ALT 10/18/21 10/18/21 10/17/21 Range/Units 09:35 07:33 20:38 WBC (4.8-10.8) K/uL RBC (4.2-5.4) M/uL Hgb (12.0-16.0) g/dL Hct (37-47) % MCV (80-100) fL MCH (25-34) pg MCHC (32-36) g/dL RDW Std Deviation (36.4-46.3) fL RDW Coeff of Shama (11.5-14.5) % Plt Count (130-400) K/uL MPV (7.4-10.4) fL Immature Gran % (Auto) % Neut % (Auto) % Lymph % (Auto) % [place] % (Auto) % Eos % (Auto) % Baso % (Auto) % Neut # (Auto) (1.4-6.5) K/uL Lymph # (Auto) (1.2-3.4) K/uL [place] # (Auto) (0.11-0.59) K/uL Eos # (Auto) (0-0.5) K/uL Baso # (Auto) (0-0.2) K/uL Immature Gran # (Auto) (0.00-0.02) K/uL Sodium (136-145) mmol/L Potassium (3.5-5.1) mmol/L Chloride (98-107) mmol/L Carbon Dioxide (21-32) mmol/L Anion Gap (3-11) BUN (6-23) mg/dl Creatinine (0.6-1.2) mg/dl Est Cr Clr Drug Dosing ml/min Est GFR ( Amer) ml/min Est GFR (Non-Af Amer) ml/min BUN/Creatinine Ratio (10-20) Glucose (70-99) mg/dl POC Glucose 156 H 146 H (70-99) mg/dl Calcium (8.5-10.1) mg/dl AST Pending ALT Pending 10/17/21 Range/Units 16:38 WBC (4.8-10.8) K/uL RBC (4.2-5.4) M/uL Hgb (12.0-16.0) g/dL Hct (37-47) % MCV (80-100) fL MCH (25-34) pg MCHC (32-36) g/dL RDW Std Deviation (36.4-46.3) fL RDW Coeff of Shama (11.5-14.5) % Plt Count (130-400) K/uL MPV (7.4-10.4) fL Immature Gran % (Auto) % Neut % (Auto) % Lymph % (Auto) % [place] % (Auto) % Eos % (Auto) % Baso % (Auto) % Neut # (Auto) (1.4-6.5) K/uL Lymph # (Auto) (1.2-3.4) K/uL [place] # (Auto) (0.11-0.59) K/uL Eos # (Auto) (0-0.5) K/uL Baso # (Auto) (0-0.2) K/uL Immature Gran # (Auto) (0.00-0.02) K/uL Sodium (136-145) mmol/L Potassium (3.5-5.1) mmol/L Chloride (98-107) mmol/L Carbon Dioxide (21-32) mmol/L Anion Gap (3-11) BUN (6-23) mg/dl Creatinine (0.6-1.2) mg/dl Est Cr Clr Drug Dosing ml/min Est GFR ( Amer) ml/min Est GFR (Non-Af Amer) ml/min BUN/Creatinine Ratio (10-20) Glucose (70-99) mg/dl POC Glucose 88 (70-99) mg/dl Calcium (8.5-10.1) mg/dl AST ALT PG Care Time/CCT Total # of Minutes Spent Total Time Spent with Patient: Total time spent is greater than 50% in coordination of care (as documented) at patient's floor/unit and/or counseling patient: Coding Level of Care Code 22385 Subseq Hosp Care Lvl 3 Diagnoses Acute encephalopathy G93.40 Acute embolic stroke I63.9 Hypercalcemia E83.52 Hypertension I10 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
[2021-10-18] MEDS: DOCUSATE SODIUM/SENNA 50/8.6MG TAB PO SCH (08:22)
[2021-10-18] MEDS: PANTOprazole 40 MG TAB PO SCH (08:22)
[2021-10-18] MEDS: APIXABAN 2.5 MG TAB PO SCH ×2 (08:22→20:52)
[2021-10-18] MEDS: lisinopril 20 MG TAB PO SCH ×2 (08:22→20:52)
[2021-10-18] MEDS: ASPIRIN 81 MG ECTAB PO SCH (08:22)
[2021-10-18] MEDS: FOLIC ACID 1 MG TAB PO SCH (08:22)
[2021-10-18] MEDS: PYRIDOXINE HCL 50 MG TAB PO SCH (08:22)
[2021-10-18] MEDS: FLUTICASONE/VILANTEROL 100/25MCG 14 PUFFS/INHALER INH SCH (08:23)
[2021-10-18] MEDS: INSULIN GLARGINE SOLOSTAR 100 UNITS/ML 3 ML PEN SC SCH (08:23)
[2021-10-18] MEDS: IRON POLYSACCHARIDE COMPLEX 150 MG CAPSULE PO SCH (08:23)
[2021-10-18] MEDS: INSULIN ASPART PER UNIT SC SCH ×4 (08:24→20:28)
[2021-10-18] MEDS: LIDOCAINE 5% 1 PATCH TD SCH (08:24)
[2021-10-18 10:05] LABS: Basophils # (auto) 0.04 K/uL (0-0.2); Basophils % (auto) 0.4 %; Eosinophils # (auto) 0.48 K/uL (0-0.5); Eosinophils % (auto) 5.3 %; Hematocrit (blood only) 40.5 % (37-47); Hemoglobin 12.4 g/dL (12.0-16.0); Immature Granulocytes # (auto) 0.02 K/uL (0.00-0.02); Immature Granulocytes % (auto) 0.2 %; Lymphocytes # (auto) 1.68 K/uL (1.2-3.4); Lymphocytes % (auto) 18.4 %; Mean Corpuscular Hgb Conc 30.6 g/dL (32-36); Mean Corpuscular Volume 94.8 fL (80-100); Monocytes # (auto) 0.56 K/uL (0.11-0.59); Monocytes % (auto) 6.1 %; Neutrophils # (auto) 6.34 K/uL (1.4-6.5); Neutrophils % (auto) 69.6 %; Platelet Count 321 K/uL (130-400); RDW Coefficient of Variation 17.9 % (11.5-14.5); RDW Standard Deviation 61.8 fL (36.4-46.3); Red Blood Count 4.27 M/uL (4.2-5.4); White Blood Count 9.12 K/uL (4.8-10.8)
[2021-10-18 10:27] LABS: BUN Creatinine Ratio 18.5 (10-20); Calcium 8.8 mg/dl (8.5-10.1); Creatinine Clr Calc Pharmacy 31.8 ml/min; Est GFR (African American) 37.9 ml/min; Est GFR (Non-African American) 32.7 ml/min; Potassium 3.8 mmol/L (3.5-5.1)
[2021-10-18] MEDS: ACETAMINOPHEN 500 MG TAB PO PRN (11:16)
[2021-10-18] MEDS: POLYETHYLENE (MIRALAX) 17 GM PACK PO SCH (12:13)
[2021-10-18] MEDS: CEFEPIME 2,000 MG in SYRINGE 0 ML IV SCH (12:14)
[2021-10-18] MEDS ORDERED: bisacodyL 5 MG TABEC PO ONE (12:45)
[2021-10-18 13:10] LABS: Alanine Aminotransferase 11 U/L (7-52); Aspartate Aminotransferase 17 U/L (13-39)
[2021-10-18] MEDS: DICLOFENAC SOD 1% GEL 100 GM TUBE EXT SCH ×2 (13:35→20:53)
[2021-10-18] MEDS ORDERED: DAPTOmycin 425 MG in SYRINGE 0 ML IV SCH (16:00)
[2021-10-18] MEDS: AMPICILLIN 1,000 MG in SODIUM CHLOR 0.9% AD-VAN 50 ML IV SCH (17:00)
[2021-10-18] MEDS: QUEtiapine FUMARATE 25 MG TABLET PO SCH (20:52)
[2021-10-18] MEDS: ATORVASTATIN 10 MG TAB PO SCH (20:53)
[2021-10-18] MEDS: MONTELUKAST SODIUM 10 MG TABLET PO SCH (20:53)
[2021-10-18] MEDS: MELATONIN 3 MG TAB PO PRN (22:40)
[2021-10-18] MEDS: hydrALAZINE HCL 20 MG/ML VIAL IV PRN (22:40)
[2021-10-19] MEDS: CEFEPIME 2,000 MG in SYRINGE 0 ML IV SCH ×2 (00:03→12:40)
[2021-10-19] MEDS: AMPICILLIN 1,000 MG in SODIUM CHLOR 0.9% AD-VAN 50 ML IV SCH ×3 (00:04→16:59)
--- NOTE | 2021-10-19 07:40 | Hospitalist Progress Note ---
Date of Service October 19, 2021 Assessment & Plan (1) Acute encephalopathy: Plan: MULTIFACTORIAL -- Stroke/delirium/mood disorder/ insomnia/hypercalcemia/ UTI Admitted with headache, found to have MRI brain with numerous b/l strokes in the posterior and anterior circulations. (of note prior MRI Jul 2021 admitted for CHF and vertigo following URI, noted white matter hyperintense foci favoring extensive small vessel disease and several old lacunar infarcts noted at that time along with several hypointense foci on gradient echo sequence suggesting trace old blood products) ECHO WITHOUT source of thrombus. Could look at aorta for plaque but defer for now. * --> This suggests embolic etiology. * Prior review of chart with elevations in homocysteine and MMA * (did have B12 def at that time) --> placed on B6/folate as well as her usual B12 , could be contributing to hypercoag state? Repeat CT Head evening 10/14 for fall * --> Expected evolutionary changes of left occipital predominant infarcts. Punctate right frontoparietal infarct seen on MRI is not seen on today's exam. No evidence of hemorrhagic conversion. Due to high likelihood for embolic phenomenon she was empirically anticoagulated with heparin drip followed by Eliquis 2.5mg BID (given will be 86 next month, Cr 1.7) Continue ASA 81mg daily Appreciate neurology consult; PT, OT, speech --> PT/OT recommending SNF --> patient with medicare and can go to [facility] when medically stable however possible may need to stay inpatient on IV abx pending cultures as below Sundowning/delirium/mood disorder/insomnia * possible acute akathisia/restlessness from getting Seroquel + olanzapine x 2 in nights previous which was instructed to be held and since discontinued. If needed ONLY 2.5mg IM but attempting to avoid. * Sundowning --> Seroquel 50mg + Melatonin prn (has not needed further) seem to be effective and will continue * Psych on board and continues to follow -- appreciate continued recommendations/assistance greatly * +benadryl 50mg x 1 on 10/17 for headache, improved today but having neck discomfort -- from meds/sleeping in bed. --> noted improvement of headache but still present. 1gm tylenol Q8h prn * She noted voltaren gel effective -- asked RN to administer x 1 now, available prn * Did not sleep well overnight --> asked last evening RN to admin seroquel + melatonin at same time, unfortunately was transferred to [facility] and not done. Asked dayshift today to pass along to please administer. * --> Also with sundowning and needing frequent orientation. Did not sleep very much last night 10/18 * If agitated overnight, can consider 2.5mg IM Olanzepine but would AVOID IF AT ALL POSSIBLE. Reach back out to psych this am for continued issue, appreciate assistance UTI * Repeat UA obtained 10/15 * appeared acutely infected, started on rocephin * Given 10/16 cx with probable pseudomonas, patient switched to Cefepime (started 10/16, day 5 and would complete course 7-10 given UTI from hospital/singh placement, since discontinued) * 10/17 urine cx also growing probable enterococcus * --> Added dose Dapto x 1 10/17 and then placed on AMpicillin 10/18 to continue course Headache * --> had slept most 10/16 and slept awkward in bed and do suspect this contributing. tight paraspinal muscles on exam, massaged and reported to feel better when I left * --> Tylenol 1g Q8H prn. Lidocaine patch/heat * --> Per discussion with psych (consulted 10/16 for assistance with medication management), can given 50mg benadryl which was administered but slight confusion/pleasant though but would avoid further dosing * --> Tylenol x 1 now, ice/heat, + lidocaine (reported effective and asked RN to apply today) * Avoid further tramadol/anticholintergics causing worsening sundowning/agitation * No increased focal deficits/slurred speect to warrant repeat CT. Prior repeat done without conversion * Resumed lasix for BP control as well now that eating/drinking better. Tx of hypercalcemia * Hypercalcemia on admit, checked VIt D, elevated. Stopped home VIt D/calcium supplementation. 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: Plan: see #1 above should have ophtho f/u post-discharge (6) (HFpEF) heart failure with preserved ejection fraction: Plan: no decompensation cont lasix less dehydrated and continued home medications, resume lasix in am Hx Pulm HTN on 2L NC continuous but had been on RA --> back to 96% on RA Hypoxia when sleeping and very likely with underlying sleep apnea (7) Headache: Plan: resolved, then again 10/17 after sleeping all day crooked in bed 10/16 Benadryl x 1 as above day prior, tylenol increased to 1gm Q8H prn and asked rn to admin x 1 now Voltaren to neck -- reported effective and asked RN to again apply heat/ice as needed no increase in symptoms to warrant repeat CT at this time --> repeat done in days past without hemorrhagic conversion noted --> If headache worsens (does not appear to be worse than days prior), consider repeating CT again, poppy given falls while in the hospital earlier in the week temporal arteritis NOT suspected (8) CKD (chronic kidney disease), stage III: Plan: baseline Cr 1.4 to 1.6 Cr 1.46 Continue lisinopril, lasix BMP pending (9) Asthma: Plan: no symptoms at this time -- did have some wheezing 10/16 albuterol admin, again admin am 10/18. No wheezing today on exam albuterol prn 93% on RA lasix resumed as above (10) Hyperlipidemia: Plan: LDL 72. Cont lipitor 10mg daily. (11) Type 2 diabetes mellitus: Plan: HbA1C 6.6% Hold glimepiride Hold metformin basal-bolus insulin regimen per pharmacy glycemic team and able to resume home medications at d/c given good control (12) Chronic respiratory failure with hypoxia and hypercapnia: Plan: stable O2 sats in room air until 10/16 when sleeping most of day -- suspect some degree of sleep apnea/snoring observed --> previously noted needing 2L NC continuously in July 2021 admission. Of note also had HUMPHREY and received venofer x 2 (negative fecal occult) during that admission. Hx pulm HTN --> check overnight pulse ox prior to d/c or at [facility]/arrange for [facility] if able to tolerate consider 2 step prior to d/c to re-demonstrate if any needs w/ ambulation Currently 96% on RA (13) Nausea: Plan: 2nd to aspirin or other cause antiemetics prn KUB with radiolucency and reported concern possible free air 10/[address] which did not indicate free air No nausea reported today, tolerating diet without issue Continue to monitor (14) DVT prophylaxis: Plan: eliquis 2.5mg BID given going to be 86 next month -- if concern, could increase to 5mg BID then decrease on the , but seems reasonable at this time to continue 2.5mg BID. Will need rx at d/c Plan: From [facility] Psych on consult -- reach out in AM for additional recs if no sleeping tonight with seroquel + melatonin and blinds pulled during day/drawn at night/ frequent orientation Eliquis/ASA Cefepime/AMpicillin for UTI --> complete cefepime while inpatient but consider oral for ampicillin and d/c to [facility] when medically stable, likely early this upcoming week pending cognitive status/ Admission and Anticipated Discharge Date Admission Date: October 11, 2021 Subjective patient evaluated this morning. having hallucinations earlier when walking past the room and attempting to feed family member a banana. Did not sleep well last evening and did not get seroquel with the melatonin. Got hydralazine for elevated BP. Less headache today but still present. RN to administer 1g tylenol. She notes the gel (voltaren) was helpful yesterday and asked RN to administer with tylenol as well. Singh discontinued as UTI hospital aquired and could have been from placement. No fever, chills, chest pain, shortness of breath reported. Eating/drinking no issue. Again stating 1964 (easily re-oriented) and knows she is in the hospital. Intermittent confusion and seeing things in the room. Was moved to third floor later last evening. Pulled blind up and encouraging better sleep/wake cycles to prevent insomnia/increased agitation/sundowning. Review of Systems Review of Systems: All systems reviewed & are unremarkable except as noted in HPI & below Physical Exam Physical Exam: gen - WN, WD, sitting up in bed, no acute distress. +paraspinal neck muscle tightness, tender to palpation (less) eyes -- R sided homonymous hemianopsia ent- mmm, trachea midline resp: diminished in the bases, no wheezing, on room air cv: RRR, +murmur, no calf edema, non-tender, pulses palpable gi: +BS, soft, non-tender/no guarding gu: no singh skin; warm, dry neuro: alert and oriented to person/place, not time (stated 1964 again), equal strength, speech clear finger/nose/finger with modest ataxia on LEFT, no facial droop appreciated, strength 5/5 b/l psych: aox2, not time (knows October, but states 1964, easily re-oriented when asking 2021), knows she is in the hospital, cooperative Results & Data Results & Data ([facility]) Vital Signs (Past 12 Hours) Vital Signs Temp Pulse Pulse Resp BP BP Pulse Ox 10/19/21 00:44 83 178/76 H 10/18/21 23:33 103 H 10/18/21 22:29 36.6 C 105 H 18 178/113 H 94 10/18/21 21:28 98 H Pulse Ox 10/19/21 00:44 10/18/21 23:33 100 10/18/21 22:29 10/18/21 21:28 97 Laboratory Results 10/19/21 10/19/21 10/19/21 Range/Units 12:23 12:23 12:12 WBC Pending RBC Pending Hgb Pending Hct Pending MCV Pending MCH Pending MCHC Pending Plt Count Pending Sodium Pending Potassium Pending Chloride Pending Carbon Dioxide Pending Anion Gap Pending BUN Pending Creatinine Pending Est Cr Clr Drug Dosing Pending Est GFR ( Amer) Pending Est GFR (Non-Af Amer) Pending BUN/Creatinine Ratio Pending Glucose Pending POC Glucose 79 (70-99) mg/dl Calcium Pending AST (13-39) U/L ALT (7-52) U/L 10/19/21 10/18/21 10/18/21 Range/Units 08:11 20:24 16:44 WBC RBC Hgb Hct MCV MCH MCHC Plt Count Sodium Potassium Chloride Carbon Dioxide Anion Gap BUN Creatinine Est Cr Clr Drug Dosing Est GFR ( Amer) Est GFR (Non-Af Amer) BUN/Creatinine Ratio Glucose POC Glucose 154 H 148 H 137 H (70-99) mg/dl Calcium AST (13-39) U/L ALT (7-52) U/L 10/18/21 Range/Units 09:35 WBC RBC Hgb Hct MCV MCH MCHC Plt Count Sodium Potassium Chloride Carbon Dioxide Anion Gap BUN Creatinine Est Cr Clr Drug Dosing Est GFR ( Amer) Est GFR (Non-Af Amer) BUN/Creatinine Ratio Glucose POC Glucose (70-99) mg/dl Calcium AST 17 (13-39) U/L ALT 11 (7-52) U/L PG Care Time/CCT Total # of Minutes Spent Total Time Spent with Patient: Total time spent is greater than 50% in coordination of care (as documented) at patient's floor/unit and/or counseling patient: Coding Level of Care Code 46446 Subseq Hosp Care Lvl 2 Diagnoses Acute encephalopathy G93.40 Acute embolic stroke I63.9 Hypercalcemia E83.52 Hypertension I10 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
[2021-10-19] MEDS: PYRIDOXINE HCL 50 MG TAB PO SCH (08:40)
[2021-10-19] MEDS: PANTOprazole 40 MG TAB PO SCH (08:40)
[2021-10-19] MEDS: LIDOCAINE 5% 1 PATCH TD SCH (08:40)
[2021-10-19] MEDS: FLUTICASONE/VILANTEROL 100/25MCG 14 PUFFS/INHALER INH SCH (08:40)
[2021-10-19] MEDS: POLYETHYLENE (MIRALAX) 17 GM PACK PO SCH (08:41)
[2021-10-19] MEDS: IRON POLYSACCHARIDE COMPLEX 150 MG CAPSULE PO SCH (08:41)
[2021-10-19] MEDS: DICLOFENAC SOD 1% GEL 100 GM TUBE EXT SCH ×3 (08:41→21:04)
[2021-10-19] MEDS: APIXABAN 2.5 MG TAB PO SCH ×2 (08:41→21:02)
[2021-10-19] MEDS: lisinopril 20 MG TAB PO SCH ×2 (08:41→21:03)
[2021-10-19] MEDS: FOLIC ACID 1 MG TAB PO SCH (08:41)
[2021-10-19] MEDS: DOCUSATE SODIUM/SENNA 50/8.6MG TAB PO SCH (08:41)
[2021-10-19] MEDS: ASPIRIN 81 MG ECTAB PO SCH (08:41)
[2021-10-19] MEDS: ACETAMINOPHEN 500 MG TAB PO PRN ×2 (08:45→21:15)
[2021-10-19] MEDS: INSULIN GLARGINE SOLOSTAR 100 UNITS/ML 3 ML PEN SC SCH (08:57)
[2021-10-19] MEDS: INSULIN ASPART PER UNIT SC SCH ×4 (08:58→21:06)
[2021-10-19] MEDS: amLODIPine BESYLATE 5 MG TAB PO SCH (09:00)
[2021-10-19 13:17] LABS: Basophils # (auto) 0.03 K/uL (0-0.2); Basophils % (auto) 0.3 %; Eosinophils # (auto) 0.46 K/uL (0-0.5); Eosinophils % (auto) 4.6 %; Hematocrit (blood only) 38.8 % (37-47); Hemoglobin 12.2 g/dL (12.0-16.0); Immature Granulocytes # (auto) 0.02 K/uL (0.00-0.02); Immature Granulocytes % (auto) 0.2 %; Lymphocytes # (auto) 1.81 K/uL (1.2-3.4); Lymphocytes % (auto) 18.2 %; Mean Corpuscular Hemoglobin 29.8 pg (25-34); Mean Corpuscular Hgb Conc 31.4 g/dL (32-36); Mean Corpuscular Volume 94.6 fL (80-100); Mean Platelet Volume 9.9 fL (7.4-10.4); Monocytes # (auto) 0.81 K/uL (0.11-0.59); Monocytes % (auto) 8.1 %; Neutrophils # (auto) 6.83 K/uL (1.4-6.5); Neutrophils % (auto) 68.6 %; Platelet Count 390 K/uL (130-400); RDW Standard Deviation 61.2 fL (36.4-46.3); White Blood Count 9.96 K/uL (4.8-10.8)
[2021-10-19 13:19] LABS: BUN Creatinine Ratio 16.5 (10-20); Calcium 9.5 mg/dl (8.5-10.1); Creatinine Clr Calc Pharmacy 36.5 ml/min; Est GFR (African American) 44.9 ml/min; Est GFR (Non-African American) 38.7 ml/min
--- NOTE | 2021-10-19 15:09 | Pharmacy Report ---
Pharmacy Glycemic Short Note 2 - Date of Service October 19, 2021 - Glycemic Short BSG Results (Last 24 hours): 10/18/21 10/18/21 10/19/21 16:44 20:24 08:11 Glucose POC Glucose 137 H 148 H 154 H 10/19/21 10/19/21 12:12 12:23 Glucose 61 L POC Glucose 79 OUTPATIENT ANTIDIABETIC REGIMEN: * Amaryl 1 mg daily * Metformin 500 mg BID * HbA1c: 6.6% (10/10/21) ASSESSMENT: 10/19: * Blood sugars at goal, pre-lunch sugar trending low, loosen CR at breakfast to prevent hypoglycemia prior to lunch * Fasting 154mg/dl, continue Lantus dose * Ampicillin + Cefepime for UTI 10/17: * BSGs yesterday were controlled at [phone] mg/dL. Received 15 units of Lantus and 4 units of Novolog (TDD = 19 units) * Fasting BSG above goal for several days now, 159 mg/dL this AM. Will increase Lantus slightly this AM. * Postprandials well controlled. No change in Novolog necessary. 10/15: * BSGs yesterday of 167, 207, 59, and 142 mg/dL * Received 27 units of insulin (15 of which was basal) * Fasting BSG of 140 mg/dL this morning - will continue increased dose of Lantus 15 units daily * Given low BSG at dinner, will loosen lunch, dinner, HS Novolog parameters PLAN FOR INPATIENT GLYCEMIC CONTROL: * Hold outpatient oral diabetes medications * Basal insulin - increased * Lantus 18 units SC daily * Bolus insulin * NovoLog per scale ACHS or Q6hrs while NPO * Goal Range: Low 110 mg/dL - High 140 mg/dL at breakfast, 120-150 mg/dL with lunch, dinner, and HS * Correction Factor: 20 mg/dL/unit with breakfast, 35 mg//dL/unit with lunch, dinner, and HS * Nutritional / Prandial insulin per carb ratio of 1 unit per 8 grams CHO consumed, 1 unit per 12 grams CHO consumed with lunch, dinner, HS PLAN FOR DISCHARGE: * HbA1C = 6.6% on 10/10/21 * Goal A1c is less than 8% in this patient given her age and co-morbidities. A1c of 6.6% indicates that she is a well controlled diabetic at home with only oral anti-diabetic meds. * Recommend continue current meds (Metformin 500 mg BID with meals and Amaryl 1 mg daily with a meal) on discharge as long as patient is not reporting hypoglycemia at home.
[2021-10-19] MEDS: ATORVASTATIN 10 MG TAB PO SCH (21:02)
[2021-10-19] MEDS: MONTELUKAST SODIUM 10 MG TABLET PO SCH (21:03)
[2021-10-19] MEDS: QUEtiapine FUMARATE 25 MG TABLET PO SCH (21:04)
[2021-10-19] MEDS: MELATONIN 3 MG TAB PO PRN (21:16)
[2021-10-20] MEDS: CEFEPIME 2,000 MG in SYRINGE 0 ML IV SCH ×3 (00:14→23:23)
[2021-10-20] MEDS: AMPICILLIN 1,000 MG in SODIUM CHLOR 0.9% AD-VAN 50 ML IV SCH ×4 (00:29→23:30)
[2021-10-20] MEDS: lisinopril 20 MG TAB PO SCH ×2 (08:09→20:55)
[2021-10-20] MEDS: amLODIPine BESYLATE 5 MG TAB PO SCH (08:09)
[2021-10-20] MEDS: INSULIN GLARGINE SOLOSTAR 100 UNITS/ML 3 ML PEN SC SCH (08:36)
[2021-10-20] MEDS: INSULIN ASPART PER UNIT SC SCH ×4 (08:40→21:31)
[2021-10-20] MEDS: DICLOFENAC SOD 1% GEL 100 GM TUBE EXT SCH ×3 (09:40→21:00)
[2021-10-20] MEDS: DOCUSATE SODIUM/SENNA 50/8.6MG TAB PO SCH (09:41)
[2021-10-20] MEDS: IRON POLYSACCHARIDE COMPLEX 150 MG CAPSULE PO SCH (09:41)
[2021-10-20] MEDS: FLUTICASONE/VILANTEROL 100/25MCG 14 PUFFS/INHALER INH SCH (09:41)
[2021-10-20] MEDS: POLYETHYLENE (MIRALAX) 17 GM PACK PO SCH (09:41)
[2021-10-20] MEDS: PANTOprazole 40 MG TAB PO SCH (09:41)
[2021-10-20] MEDS: FUROSEMIDE 20 MG TAB PO SCH (09:41)
[2021-10-20] MEDS: FOLIC ACID 1 MG TAB PO SCH (09:41)
[2021-10-20] MEDS: LIDOCAINE 5% 1 PATCH TD SCH (09:41)
[2021-10-20] MEDS: ASPIRIN 81 MG ECTAB PO SCH (09:42)
[2021-10-20] MEDS: PYRIDOXINE HCL 50 MG TAB PO SCH (09:42)
[2021-10-20] MEDS: APIXABAN 2.5 MG TAB PO SCH ×2 (09:42→20:56)
--- NOTE | 2021-10-20 10:18 | Neurology Progress Note ---
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 She had a left cerebellar stroke which could explain her balance and the multiple bilateral strokes could explain other symptoms including confusion. This morning she is angry but her neurologic exam seem stable. The patient had a markedly elevated blood pressure which could explain her initial confusion as well ( hypertensive encephalopathy ). Blood pressure is low today. In addition, she had an elevated white count, elevated sed rate, and CRP. She is on antibiotic and today her white count is normal. Recommendations new 1. Control blood pressure as you are doing, aiming for a mean arterial pressure of 100. avoid over-correction. 2. The patient would be a statin candidate but I would avoid high doses given her age and lipid levels. 3. Continue apixaban 2.5 milligrams twice daily and 81 milligram aspirin tablet daily. 4. Increase activity as able with physical therapy, occupational therapy, and speech therapy consult. Overall, I spent a total of 25 minutes on this case including review of records, direct evaluation the patient bedside, and discussion of the case with the patient and RN at bedside, and Dr. Quintana, including differential diagnosis and treatment options. Admission and Anticipated Discharge Date Admission Date: October 11, 2021 Subjective patient will not answer questions and states that she does not want to talk to anybody and does not want to listen to anybody or do with they say. Nursing reports the patient was very upset about getting straight cath and has been bed angry combative mood ever since. Blood pressure is 94/37 and she is afebrile. Results & Data ([facility]) Vital Signs (Past 12 Hours) Vital Signs Temp Pulse Resp BP Pulse Ox 10/20/21 08:51 36.3 C L 65 16 94/37 L 93 Exam (Neuro) Physical Exam: She is awake and alert and will answer questions without obvious aphasia. She is not following 1 step commands but is moving her arm symmetrically. There is no facial droop. 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
--- NOTE | 2021-10-20 16:11 | Hospitalist Progress Note ---
Date of Service October 20, 2021 Assessment & Plan (1) Acute encephalopathy: Plan: MULTIFACTORIAL -- Stroke/delirium/mood disorder/ insomnia/hypercalcemia/ underlying dementia/UTI Admitted with headache, found to have MRI brain with numerous b/l strokes in the posterior and anterior circulations (of note prior MRI Jul 2021 admitted for CHF and vertigo following URI, noted white matter hyperintense foci favoring extensive small vessel disease and sever al old lacunar infarcts noted at that time along with several hypointense foci on gradient echo sequence suggesting trace old blood products) ECHO WITHOUT source of thrombus. Could look at aorta for plaque but defer for now. * --> This suggests embolic etiology. * Prior review of chart with elevations in homocysteine and MMA * (did have B12 def at that time) --> placed on B6/folate as well as her usual B12 Repeat CT Head evening 10/14 for fall * --> Expected evolutionary changes of left occipital predominant infarcts. Punctate right frontoparietal infarct seen on MRI is not seen on today's exam. No evidence of hemorrhagic conversion. Due to high likelihood for embolic phenomenon she was empirically anticoagulated with heparin drip followed by Eliquis 2.5mg BID (given will be 86 next month, Cr 1.7) Continue ASA 81mg daily Appreciate neurology consult; PT, OT, speech --> PT/OT recommending SNF --> patient with medicare and can go to [facility] when medically stable however possible may need to stay inpatient on IV abx pending cultures as below Sundowning/dementia/delirium/mood disorder/insomnia * possible acute akathisia/restlessness from getting Seroquel + olanzapine x 2 in nights previous which was instructed to be held and since discontinued. If needed ONLY 2.5mg IM but attempting to avoid. * owning --> Seroquel 50mg + Melatonin PRN * Psych on board and continues to follow -- appreciate continued recommendations/assistance greatly * Possibly poor sleep contributing? * --> Also with ing and needing frequent orientation. Seems to sleep alot through the * If agitated, can consider 2.5mg IM Olanzepine but would AVOID IF AT ALL POSSIBLE. Can reach back out to psych this for continued issue, appreciate assistance UTI * Growing Pseudomonas and Enterococcus - Continue Ampicillin and Cefepime Headache * --> Suspect musculoskeletal component * --> Tylenol 1g Q8H prn. Lidocaine patch/heat * --> Per discussion with psych (consulted 10/16 for assistance with medication management), can given 50mg benadryl which was administered but slight confusion/pleasant though but would avoid further dosing * Avoid further tramadol/anticholintergics causing worsening sundowning/agitation * No increased focal deficits/slurred speech to warrant repeat CT. Prior repeat done without conversion * Resumed lasix for BP control as well now that eating/drinking better. * --> If headache worsens (does not appear to be worse than days prior), consider repeating CT again, poppy given falls while in the hospital earlier in the week; temporal arteritis NOT suspected Tx of hypercalcemia * Hypercalcemia on admit (suspect possibly due to some level of dehydration), checked VIt D, elevated. Stopped home VIt D/calcium supplementation. 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 - [place] to be embolic, Eliquis/ASA at discharge Tx of encephalopathy/UTI as above - possibly component of hypertensive encephalopathy - aim for a MAP of 100 and avoid overcorrection (3) Hypercalcemia: Plan: as above (4) Hypertension: Plan: - Continue Norvasc 5 mg daily; Lasix 20 mg daily; Lisinopril 20 mg BID (5) (HFpEF) heart failure with preserved ejection fraction: Plan: - Hx Pulm HTN on 2L NC continuous but had been on RA --> back to 96% on RA -- Hypoxia when sleeping and very likely with underlying sleep apnea - No decompensation - Cont lasix (6) CKD (chronic kidney disease), stage III: Plan: - Baseline Cr 1.4 to 1.6 - Continue to routinely monitor (7) Asthma: Plan: - No exacerbation at this time; Albuterol PRN (8) Hyperlipidemia: Plan: - Cont Lipitor 10 mg daily. (9) Type 2 diabetes mellitus: Plan: - HbA1C 6.6% - Hold home orals; appreciate pharmacy management (10) Chronic respiratory failure with hypoxia and hypercapnia: Plan: - Hx pulm HTN - Stable O2 sats in room air -- suspect some degree of sleep apnea/snoring observed --> previously noted needing 2L NC continuously in July 2021 admission. Of note also had HUMPHREY and received venofer x 2 (negative fecal occult) during that admission. (11) Nausea: Plan: - Anti-emetics PRN - KUB with radiolucency and reported concern possible free air 10/[address] which did not indicate free air No nausea reported today, tolerating diet without issue Continue to monitor (12) DVT prophylaxis: Plan: - Eliquis 2.5mg BID given going to be 86 next month Plan: - From [facility] - Psych on consult - Cefepime/Ampicillin for UTI --> complete cefepime while inpatient but consider oral for ampicillin and d/c to [facility] when medically stable, likely early this upcoming week pending cogn itive status/ Admission and Anticipated Discharge Date Admission Date: October 11, 2021 Subjective Patient had straight cath early this AM. She has been more agitated this AM and combative. She has since been sleeping most of the day and a bit more cooperative this afternoon. Results & Data Results & Data ([facility]) Vital Signs (Past 12 Hours) Vital Signs Temp Pulse Resp BP Pulse Ox 10/20/21 08:51 36.3 C L 65 16 94/37 L 93 PG Care Time/CCT Total # of Minutes Spent Total Time Spent with Patient: Total time spent is greater than 50% in coordination of care (as documented) at patient's floor/unit and/or counseling patient: Coding Level of Care Code 82696 Subseq Hosp Care Lvl 3 Diagnoses Acute encephalopathy G93.40 Acute embolic stroke I63.9 Hypercalcemia E83.52 Hypertension I10 (HFpEF) heart failure with preserved ejection fraction I50.30 CKD (chronic kidney disease), stage III N18.30 Asthma J45.909 Hyperlipidemia E78.5 Type 2 diabetes mellitus E11.9 Chronic respiratory failure with hypoxia and hypercapnia J96.11; J96.12 Nausea R11.0 DVT prophylaxis Z29.9
[2021-10-20] MEDS: ATORVASTATIN 10 MG TAB PO SCH (20:55)
[2021-10-20] MEDS: MONTELUKAST SODIUM 10 MG TABLET PO SCH (20:55)
[2021-10-20] MEDS: MELATONIN 3 MG TAB PO PRN (20:56)
[2021-10-20] MEDS: QUEtiapine FUMARATE 25 MG TABLET PO SCH (20:56)
[2021-10-21] MEDS: AMPICILLIN 1,000 MG in SODIUM CHLOR 0.9% AD-VAN 50 ML IV SCH ×3 (08:45→23:49)
[2021-10-21] MEDS: INSULIN GLARGINE SOLOSTAR 100 UNITS/ML 3 ML PEN SC SCH (08:46)
[2021-10-21] MEDS: INSULIN ASPART PER UNIT SC SCH ×4 (08:49→20:42)
[2021-10-21] MEDS: amLODIPine BESYLATE 5 MG TAB PO SCH (08:52)
[2021-10-21] MEDS: APIXABAN 2.5 MG TAB PO SCH ×2 (08:52→21:20)
[2021-10-21] MEDS: DICLOFENAC SOD 1% GEL 100 GM TUBE EXT SCH ×3 (08:53→21:43)
[2021-10-21] MEDS: FLUTICASONE/VILANTEROL 100/25MCG 14 PUFFS/INHALER INH SCH (08:53)
[2021-10-21] MEDS: PANTOprazole 40 MG TAB PO SCH (08:53)
[2021-10-21] MEDS: IRON POLYSACCHARIDE COMPLEX 150 MG CAPSULE PO SCH (08:53)
[2021-10-21] MEDS: FOLIC ACID 1 MG TAB PO SCH (08:53)
[2021-10-21] MEDS: DOCUSATE SODIUM/SENNA 50/8.6MG TAB PO SCH (08:53)
[2021-10-21] MEDS: ASPIRIN 81 MG ECTAB PO SCH (08:53)
[2021-10-21] MEDS: FUROSEMIDE 20 MG TAB PO SCH (08:53)
[2021-10-21] MEDS: lisinopril 20 MG TAB PO SCH ×2 (08:53→21:20)
[2021-10-21] MEDS: LIDOCAINE 5% 1 PATCH TD SCH (08:53)
[2021-10-21] MEDS: PYRIDOXINE HCL 50 MG TAB PO SCH (08:54)
[2021-10-21] MEDS: POLYETHYLENE (MIRALAX) 17 GM PACK PO SCH (08:54)
[2021-10-21 09:14] LABS: Hematocrit (blood only) 40.9 % (37-47); Hemoglobin 12.6 g/dL (12.0-16.0); Mean Corpuscular Hemoglobin 29.6 pg (25-34); Mean Corpuscular Hgb Conc 30.8 g/dL (32-36); Mean Platelet Volume 9.8 fL (7.4-10.4); Platelet Count 379 K/uL (130-400); RDW Coefficient of Variation 17.9 % (11.5-14.5); RDW Standard Deviation 62.9 fL (36.4-46.3); Red Blood Count 4.26 M/uL (4.2-5.4); White Blood Count 10.73 K/uL (4.8-10.8)
[2021-10-21 09:19] LABS: Base Excess VBG 2.5 mEq/L; HCO3 VBG 29 mmol/L; PCO2 VBG 54 mmHg (38-50); PO2 VBG 26 mmHg; pH VBG 7.35 (7.36-7.41)
[2021-10-21 09:20] LABS: Oxygen Saturation VBG < 60.0 %
[2021-10-21 09:37] LABS: Albumin Globulin Ratio 1.2 (0.9-2); Albumin Level 3.7 gm/dl (3.4-5.0); BUN Creatinine Ratio 18.7 (10-20); Bilirubin,Total 0.4 mg/dl (0.2-1.0); Calcium 9.4 mg/dl (8.5-10.1); Creatinine Clr Calc Pharmacy 34.6 ml/min; Est GFR (African American) 42.1 ml/min; Est GFR (Non-African American) 36.3 ml/min; Globulin 3.1 gm/dl (2.5-4.0); Potassium 4.6 mmol/L (3.5-5.1); Total Protein 6.8 gm/dl (6.0-8.3)
--- NOTE | 2021-10-21 10:24 | CT Scan Report ---
CT OF THE HEAD WITHOUT CONTRAST CLINICAL HISTORY: Altered Mental Status; Recent CVA COMPARISON STUDY: MRI of the brain October 10, 2021. Head CT October 14, 2021. CT DOSE: 691.05 mGy.cm TECHNIQUE: Helical axial images of the head were obtained without IV contrast. Automated exposure con trol was utilized for the study. A dose lowering technique was utilized adhering to the principles o f ALARA. FINDINGS: This exam was compromised given difficulty positioning. No acute intracranial hemorrhage, m idline shift or mass effect is present. There has been expected evolution of multiple infarcts, inclu ding a left occipital lobe infarct as well as an infarct involving the left thalamus and posterior li mb of the left internal capsule. White matter hypodensity suggests small vessel disease. Ventricular system is unremarkable. Basal cisterns are patent. There are no extra axial collections. A 1.6 x 0.7 cm hypodensity within the left cerebellar hemisphere on image 11 of 36 is new since previous head CT of October 14, 2021. No calvarial fractures are present. IMPRESSION: 1. No acute intracranial hemorrhage. 2. Expected evolution of several infarcts, including left occipital and left thalamic infarcts. 3. 1.6 x 0.7 cm hypodensity within the left cerebellar hemisphere, new since prior head CT. This coul d reflect an interval acute infarct. ACT 112: Negative or not required by law. Electronically signed by: Elier Arias M.D. 10/21/2021 10:23 AM
--- NOTE | 2021-10-21 12:16 | Psychiatric Progress Note ---
Date of Service October 21, 2021 Impression / Recommendations Impression This is a 85 yo old admitted for CVA and confusion, required IM Zyprexa early in stay for breakthrough despite Seroquel, now more sedated. (1) Acute encephalopathy: (2) Acute embolic stroke: agree with d/c of Seroquel 50 mg at hs. It's not unusual for it to be more sedating with time when not as acutely agitated. monitor--if need to restart would suggest lower dose, earlier evening admin and/or split dose (12.5 Bid for example). Interval History Identifying Information 85 yo woman with history of CHF, COPD on oxygen, CKD III, HLD, HTN, JOSEFINA and on seroquel for reported mood disorder admitted medically and being managed for acute delirium in setting of multiple CVAs, UTI. Psychiatry was consulted for increasing agitation and delirium management. Chief Complaint AMS Review of Systems Notes patient unable to complete due to AMS Subjective Subjective Patient was seen & assessed and interval progress reviewed. Patient had period of agitation yesterday am where hitting at staff when attempting to provide care. In general has been more somnolent, tends to get better as day goes on per nursing. Physical Exam Psychiatric very sedated, difficult to arouse Vital Signs (Past 24 Hours) Last Vital Signs Temp 36.6 C 10/21/21 07:47 Pulse 80 10/21/21 07:47 Resp 16 10/21/21 07:47 BP 125/70 10/21/21 07:47 Pulse Ox 93 10/21/21 07:47 Results & Data ([facility]) Laboratory Results Laboratory Results - last 24 hr 10/20/21 10/20/21 10/21/21 16:49 20:39 08:09 WBC RBC Hgb Hct MCV MCH MCHC RDW Std Deviation RDW Coeff of Shama Plt Count MPV VBG pH VBG pCO2 VBG pO2 VBG HCO3 VBG O2 Saturation VBG Base Excess Barometric Pressure Sodium Potassium Chloride Carbon Dioxide Anion Gap BUN Creatinine Est Cr Clr Drug Dosing Est GFR ( Amer) Est GFR (Non-Af Amer) BUN/Creatinine Ratio Glucose POC Glucose 130 H 119 H 116 H Calcium Total Bilirubin AST ALT Alkaline Phosphatase Ammonia Total Protein Albumin Globulin Albumin/Globulin Ratio 10/21/21 10/21/21 10/21/21 09:00 09:00 09:00 WBC 10.73 RBC 4.26 Hgb 12.6 Hct 40.9 MCV 96.0 MCH 29.6 MCHC 30.8 L RDW Std Deviation 62.9 H RDW Coeff of Shama 17.9 H Plt Count 379 MPV 9.8 VBG pH 7.35 L VBG pCO2 54 H VBG pO2 26 VBG HCO3 29 VBG O2 Saturation < 60.0 VBG Base Excess 2.5 Barometric Pressure 730.7 Sodium 141 Potassium 4.6 Chloride 105 Carbon Dioxide 28 Anion Gap 8 BUN 25 H Creatinine 1.34 H Est Cr Clr Drug Dosing 34.6 Est GFR ( Amer) 42.1 Est GFR (Non-Af Amer) 36.3 BUN/Creatinine Ratio 18.7 Glucose 129 H POC Glucose Calcium 9.4 Total Bilirubin 0.4 AST 18 ALT 11 Alkaline Phosphatase 80 Ammonia Total Protein 6.8 Albumin 3.7 Globulin 3.1 Albumin/Globulin Ratio 1.2 10/21/21 09:00 WBC RBC Hgb Hct MCV MCH MCHC RDW Std Deviation RDW Coeff of Shama Plt Count MPV VBG pH VBG pCO2 VBG pO2 VBG HCO3 VBG O2 Saturation VBG Base Excess Barometric Pressure Sodium Potassium Chloride Carbon Dioxide Anion Gap BUN Creatinine Est Cr Clr Drug Dosing Est GFR ( Amer) Est GFR (Non-Af Amer) BUN/Creatinine Ratio Glucose POC Glucose Calcium Total Bilirubin AST ALT Alkaline Phosphatase Ammonia 14.0 L Total Protein Albumin Globulin Albumin/Globulin Ratio Current Inpatient Medications Current Inpatient Medications: Current Inpatient Medications Acetaminophen (Acetaminophen 500 Mg Tab) 1,000 mg PO Q8H PRN PRN Reason: Pain, fever or headache Stop: 11/09/21 01:44 Last Admin: 10/19/21 21:15 Dose: 1,000 mg Documented by: Albuterol (Albuterol Hfa 8 Gm Inhaler) 2 puffs INH Q6H PRN PRN Reason: shortness of breath or wheezin Stop: 11/09/21 01:44 Amlodipine Besylate (Amlodipine Besylate 5 Mg Tab) 5 mg PO DAILY [facility] Stop: 11/09/21 08:59 Last Admin: 10/21/21 08:52 Dose: Not Given Documented by: Apixaban (Apixaban 2.5 Mg Tab) 2.5 mg PO BID [facility] Stop: 11/10/21 20:59 Last Admin: 10/21/21 08:52 Dose: Not Given Documented by: Artificial Tears (Artificial Tears) 1 drops OP DAILY PRN PRN Reason: Dry Eyes Stop: 11/09/21 02:26 Aspirin (Aspirin 81 Mg Ectab) 81 mg PO DAILY [facility] Stop: 11/09/21 08:59 Last Admin: 10/21/21 08:53 Dose: Not Given Documented by: Atorvastatin Calcium (Atorvastatin 10 Mg Tab) 10 mg PO HS [facility] Stop: 11/09/21 20:59 Last Admin: 10/20/21 20:55 Dose: 10 mg Documented by: Cyanocobalamin (Cyanocobalamin 1000 Mcg/Ml Vial) 1,000 mcg IM 10/26/21@0900 [facility] Stop: 10/26/21 09:01 Dextrose (Dextrose 50% 50 Ml Syringe) 25 - 50 ml IV UD PRN; Protocol PRN Reason: Hypoglycemia Protocol Stop: 11/09/21 03:59 Diclofenac Sodium (Diclofenac Sod 1% Gel 100 Gm Tube) 2 gm EXT TID [facility] Stop: 11/17/21 13:59 Last Admin: 10/21/21 08:53 Dose: Not Given Documented by: Fluticasone/Vilanterol (Fluticasone/Vilanterol 100/25mcg 14 Puffs/Inhaler) 1 puffs INH DAILY [facility] Stop: 11/09/21 08:59 Last Admin: 10/21/21 08:53 Dose: Not Given Documented by: Folic Acid (Folic Acid 1 Mg Tab) 1 mg PO QAM [facility] Stop: 11/14/21 08:59 Last Admin: 10/21/21 08:53 Dose: Not Given Documented by: Furosemide (Furosemide 20 Mg Tab) 20 mg PO DAILY [facility] Stop: 11/09/21 08:59 Last Admin: 10/21/21 08:53 Dose: Not Given Documented by: Glucagon (Glucagon For Inj 1 Mg Vial) 1 mg IM UD PRN; Protocol PRN Reason: Hypoglycemia Protocol Stop: 11/09/21 03:59 Glucose (Glucose 40% Gel 15 Gm Tube) 15 - 30 gm PO UD PRN; Protocol PRN Reason: Hypoglycemia Protocol Stop: 11/09/21 03:59 Glucose (Glucose 10 Tabs/Tube) 4 - 8 tabs PO UD PRN; Protocol PRN Reason: Hypoglycemia Protocol Stop: 11/09/21 03:59 Guaifenesin (Guaifenesin 600 Mg Tabcr) 600 mg PO Q12H PRN PRN Reason: Congestion Stop: 11/09/21 01:44 Hydralazine HCl (Hydralazine Hcl 20 Mg/Ml Vial) 5 mg IV Q8H PRN PRN Reason: hypertension Stop: 11/13/21 08:21 Last Admin: 10/18/21 22:40 Dose: 5 mg Documented by: Cefepime HCl 2,000 mg/ Syringe 20 mls @ 5 mls/min IV Q12H [facility]; Protocol Stop: 10/21/21 12:59 Last Admin: 10/20/21 23:23 Dose: 5 mls/min Documented by: Ampicillin Sodium 1,000 mg/ (Sodium Chloride) 50 mls @ 100 mls/hr IV Q8H [facility]; Protocol Stop: 10/27/21 16:29 Last Infusion: 10/21/21 09:22 Dose: Infused Documented by: Insulin Aspart (Insulin Aspart Per Unit) 0 units SC DAILY@0730 [facility]; Protocol Stop: 11/09/21 03:59 Last Admin: 10/21/21 08:49 Dose: Not Given Documented by: Insulin Aspart (Insulin Aspart Per Unit) 0 units SC 1130,1630,2100 [facility]; Protocol Stop: 11/12/21 11:29 Last Admin: 10/20/21 21:31 Dose: Not Given Documented by: Insulin Glargine (Insulin Glargine Solostar 100 Units/Ml 3 Ml Pen) 18 units SC QAM [facility]; Protocol Stop: 11/11/21 08:59 Last Admin: 10/21/21 08:46 Dose: 18 units Documented by: Lidocaine (Lidocaine 5% 1 Patch) [facility] [place]: 11/16/21 10:14 Last Admin: 10/21/21 08:53 Dose: Not Given Documented by: Lisinopril (Lisinopril 20 Mg Tab) 20 mg PO BID [facility] Stop: 11/13/21 08:59 Last Admin: 10/21/21 08:53 Dose: Not Given Documented by: Melatonin (Melatonin 3 Mg Tab) 6 mg PO HS PRN PRN Reason: Sleep Stop: 11/13/21 18:09 Last Admin: 10/20/21 20:56 Dose: 6 mg Documented by: Miscellaneous (Carbohydrates For Hypoglycemia ) 15 - 30 gm PO UD PRN PRN Reason: Hypoglycemia Treatment Stop: 11/09/21 03:59 Last Admin: 10/14/21 17:05 Dose: 15 gm Documented by: Miscellaneous (Remove Lidoderm Patch) 1 ea N/A DAILY@2100 [facility] Stop: 11/16/21 20:59 Last Admin: 10/20/21 20:57 Dose: Not Given Documented by: Miscellaneous Information (Pharmacy Glycemic Mgmt Consult) 1 ea N/A UD PRN PRN Reason: Consult Stop: 11/09/21 01:44 Montelukast Sodium (Montelukast Sodium 10 Mg Tablet) 10 mg PO HS [facility] Stop: 11/09/21 20:59 Last Admin: 10/20/21 20:55 Dose: 10 mg Documented by: Nitroglycerin (Nitroglycerin Sl 0.4 Mg/Tab Tab) 0.4 mg SL UD PRN PRN Reason: Chest Pain Stop: 11/09/21 01:44 Nystatin (Nystatin Powder 15gm Btl) 1 appln EXT TID PRN PRN Reason: irritation Stop: 11/09/21 01:44 Last Admin: 10/16/21 19:49 Dose: 1 appln Documented by: Pantoprazole Sodium (Pantoprazole 40 Mg Tab) 40 mg PO DAILY [facility] Stop: 11/09/21 08:59 Last Admin: 10/21/21 08:53 Dose: Not Given Documented by: Polyethylene Glycol (Polyethylene (Miralax) 17 Gm Pack) 17 gm PO DAILY PRN PRN Reason: Constipation Stop: 11/09/21 01:44 Last Admin: 10/14/21 15:31 Dose: 17 gm Documented by: Polyethylene Glycol (Polyethylene (Miralax) 17 Gm Pack) 17 gm PO DAILY [facility] Stop: 11/17/21 11:14 Last Admin: 10/21/21 08:54 Dose: Not Given Documented by: Polysaccharide Iron Complex (Iron Polysaccharide Complex 150 Mg Capsule) 150 mg PO DAILY [facility] Stop: 11/09/21 08:59 Last Admin: 10/21/21 08:53 Dose: Not Given Documented by: Pyridoxine HCl (Pyridoxine Hcl 50 Mg Tab) 50 mg PO QAM [facility] Stop: 11/14/21 08:59 Last Admin: 10/21/21 08:54 Dose: Not Given Documented by: Senna/Docusate Sodium (Docusate Sodium/Senna 50/8.6mg Tab) 1 tab PO QAM [facility] Stop: 11/14/21 08:59 Last Admin: 10/21/21 08:53 Dose: Not Given Documented by: Sennosides (Senna 8.6 Mg Tab) 8.6 mg PO DAILY PRN PRN Reason: Constipation Stop: 11/09/21 01:44 Tramadol HCl (Tramadol Hcl 50 Mg Tablet) 50 mg PO Q8H PRN PRN Reason: Pain Stop: 11/10/21 15:29 Last Admin: 10/15/21 09:00 Dose: 50 mg Documented by:
[2021-10-21] MEDS: CEFEPIME 2,000 MG in SYRINGE 0 ML IV SCH ×2 (12:30→23:43)
--- NOTE | 2021-10-21 13:52 | Pharmacy Report ---
Pharmacy Glycemic Short Note 2 - Date of Service October 21, 2021 - Glycemic Short BSG Results (Last 24 hours): 10/20/21 10/20/21 10/21/21 16:49 20:39 08:09 Glucose POC Glucose 130 H 119 H 116 H 10/21/21 10/21/21 09:00 12:18 Glucose 129 H POC Glucose 126 H OUTPATIENT ANTIDIABETIC REGIMEN: * Amaryl 1 mg daily * Metformin 500 mg BID * HbA1c: 6.6% (10/10/21) ASSESSMENT: 10/21/21: * Patient's BSGs remain stable. * No changes indicated at this time. 10/19: * Blood sugars at goal, pre-lunch sugar trending low, loosen CR at breakfast to prevent hypoglycemia prior to lunch * Fasting 154mg/dl, continue Lantus dose * Ampicillin + Cefepime for UTI 10/17: * BSGs yesterday were controlled at [phone] mg/dL. Received 15 units of Lantus and 4 units of Novolog (TDD = 19 units) * Fasting BSG above goal for several days now, 159 mg/dL this AM. Will increase Lantus slightly this AM. * Postprandials well controlled. No change in Novolog necessary. 10/15: * BSGs yesterday of 167, 207, 59, and 142 mg/dL * Received 27 units of insulin (15 of which was basal) * Fasting BSG of 140 mg/dL this morning - will continue increased dose of Lantus 15 units daily * Given low BSG at dinner, will loosen lunch, dinner, HS Novolog parameters PLAN FOR INPATIENT GLYCEMIC CONTROL: * Hold outpatient oral diabetes medications * Basal insulin - * Lantus 18 units SC daily * Bolus insulin * NovoLog per scale ACHS or Q6hrs while NPO * Goal Range: Low 110 mg/dL - High 140 mg/dL at breakfast, 120-150 mg/dL with lunch, dinner, and HS * Correction Factor: 20 mg/dL/unit with breakfast, 35 mg/dL/unit with lunch, dinner, and HS * Nutritional / Prandial insulin per carb ratio of 1 unit per 8 grams CHO consumed, 1 unit per 12 grams CHO consumed with lunch, dinner, HS PLAN FOR DISCHARGE: * HbA1C = 6.6% on 10/10/21 * Goal A1c is less than 8% in this patient given her age and co-morbidities. A1c of 6.6% indicates that she is a well controlled diabetic at home with only oral anti-diabetic meds. * Recommend continue current meds (Metformin 500 mg BID with meals and Amaryl 1 mg daily with a meal) on discharge as long as patient is not reporting hypoglycemia at home.
--- NOTE | 2021-10-21 18:37 | Hospitalist Progress Note ---
Date of Service October 21, 2021 Assessment & Plan (1) Acute encephalopathy: Plan: MULTIFACTORIAL -- Stroke/delirium/mood disorder/ insomnia/hypercalcemia/ underlying dementia/UTI Admitted with headache, found to have MRI brain with numerous b/l strokes in the posterior and anterior circulations (of note prior MRI Jul 2021 admitted for CHF and vertigo following URI, noted white matter hyperintense foci favoring extensive small vessel disease and sever al old lacunar infarcts noted at that time along with several hypointense foci on gradient echo sequence suggesting trace old blood products) ECHO WITHOUT source of thrombus. Could look at aorta for plaque but defer for now. * --> This suggests embolic etiology. * Prior review of chart with elevations in homocysteine and MMA * (did have B12 def at that time) -->placed on B6/folate as well as her usual B12 * Repeat CT Head evening 10/14 for fall -->Expected evolutionary changes of left occipital predominant infarcts. Punctate right frontoparietal infarct seen on MRI is not seen on today's exam.No evidence of hemorrhagic conversion. Due to high likelihood for embolic phenomenon she was empirically anticoagulated with heparin drip followed byEliquis 2.5mg BID(given will be 86 next month, Cr 1.7) Continue ASA 81mg daily Appreciate neurology consult and discussed with Dr. Markham today; PT, OT, speech --> patient with medicare and can go to [facility] when medically stable however possible may need to stay inpatient on IV abx and to work on mentation Sundowning/dementia/delirium/mood disorder/insomnia * possible acute akathisia/restlessness from getting Seroquel + olanzapine x 2 in nights previous which was instructed to be held and since discontinued. If needed ONLY 2.5mg IM but attempting to avoid. * Sundowning --> Seroquel 50mg + Melatonin PRN (will hold for now given lethargy today) * Psych on board and continues to follow -- Discussed with Dr Leigh today -- appreciate continued recommendations/assistance greatly * Possibly poor sleep contributing? Could explain why she is sleeping more today * --> Also with sundowning and needing frequent orientation. Seems to sleep alot through the day * If agitated, can consider 2.5mg IM Olanzepine but would AVOID IF AT ALL POSSIBLE UTI * Growing Pseudomonas and Enterococcus - Continue Ampicillin and Cefepime Headache * --> Suspect musculoskeletal component * --> Tylenol 1g Q8H prn. Lidocaine patch/heat * --> Per discussion with psych (consulted 10/16 for assistance with medication management), can given 50mg benadryl which was administered but slight confusion/pleasant though but would avoid further dosing * Avoid further tramadol/anticholintergics causing worsening sundowning/agitation * --> If headache worsens (does not appear to be worse than days prior), consider repeating CT again, poppy given falls while in the hospital earlier in the week; temporal arteritis NOT suspected Tx of hypercalcemia * Hypercalcemia on admit (suspect possibly due to some level of dehydration), checked VIt D, elevated. Stopped home VIt D/calcium supplementation. Repeat Ca wnl (2) Acute embolic stroke: Plan: - Neuro consulted (Discussed with Dr. Markham today), MRI/ECHO/A1c/lipid, PT/OT/Speech -- plans for [facility] at d/c - Also with homonymous hemianopsia due to recent CVA - should have metal sorter F/U post-discharge - [place] to be embolic, Eliquis/ASA at discharge Tx of encephalopathy/UTI as above - possibly component of hypertensive encephalopathy - aim for a MAP of 100 and avoid overcorrection Repeat Head CT due to being more sleepy today - no acute hemorrhage; expected evolution changes of several infarcts; 1.6 x 0.7 cm hypodensity within the L cerebellar hemisphere new compared to prior head CT however there was a punctate infarct in the L cerebellum on last MRI - just more pronounced vs new CVA? Increase Eliquis vs R/O other causes of encephalopathy? (3) (HFpEF) heart failure with preserved ejection fraction: Plan: - Hx Pulm HTN on 2L NC continuous but had been on RA --> back to 96% on RA -- Hypoxia when sleeping and very likely with underlying sleep apnea - No decompensation - Lasix on hold for now (4) Hypertension: Plan: - Continue Norvasc 5 mg daily; Lasix 20 mg daily; Lisinopril 20 mg BID (5) CKD (chronic kidney disease), stage III: Plan: - Baseline Cr 1.4 to 1.6 - Continue to routinely monitor - at baseline currently (6) Asthma: Plan: - No exacerbation at this time; Albuterol PRN (7) Hyperlipidemia: Plan: - Cont Lipitor 10 mg daily. (8) Type 2 diabetes mellitus: Plan: - HbA1C 6.6% - Hold home orals; appreciate pharmacy management (9) Chronic respiratory failure with hypoxia and hypercapnia: Plan: - Hx pulm HTN - Stable O2 sats in room air -- suspect some degree of sleep apnea/snoring observed --> previously noted needing 2L NC continuously in July 2021 admission. Of note also had HUMPHREY and received venofer x 2 (negative fecal occult) during that admission. (10) Nausea: Plan: - Anti-emetics PRN - KUB with radiolucency and reported concern possible free air 10/[address] which did not indicate free air No nausea reported today, tolerating diet without issue Continue to monitor (11) DVT prophylaxis: Plan: - Eliquis 2.5mg BID given going to be 86 next month Plan: - From [facility] - Psych on consult - Cefepime/Ampicillin for UTI --> complete cefepime while inpatient but consider oral for ampicillin and d/c to [facility] when medically stable pending mentation improvement Admission and Anticipated Discharge Date Admission Date: October 11, 2021 Subjective Patient has been predominantly sleeping today. She will open her eyes to touch but doesn't really respond to questions or interacts. She did say ouch when getting her blood drawn today. Review of Systems Review of Systems: Unobtainable due to cognitive status Physical Exam Physical Exam: PHYSICAL EXAM General Appearance: WDWN in NAD who is sleeping but opens eyes to verbal/tactile stimuli but falls back asleep and snoring HEENT: Head is normocephalic/atraumatic Neck: Supple; Trachea midline; Neg JVD Heart: RRR with murmur Lungs: CTA in all lung dominique bilaterally but diminished; Respirations unlabored; Neg accessory muscle use Abdomen: Soft, non-tender (no grimacing), non-distended; Positive BS x 4 quadrants Extremities: Neg cyanosis or edema Psychiatric: Sleeping Skin: Normal Color Results & Data Results & Data ([facility]) Vital Signs (Past 12 Hours) Vital Signs Temp Pulse Resp BP Pulse Ox 10/21/21 15:20 36.3 C L 61 16 178/95 H 94 10/21/21 07:47 36.6 C 80 16 125/70 93 PG Care Time/CCT Total # of Minutes Spent Total Time Spent with Patient: Total time spent is greater than 50% in coordination of care (as documented) at patient's floor/unit and/or counseling patient: Coding Level of Care Code 10980 Subseq Hosp Care Lvl 3 Diagnoses Acute embolic stroke I63.9 Acute encephalopathy G93.40 (HFpEF) heart failure with preserved ejection fraction I50.30 CKD (chronic kidney disease), stage III N18.30 Asthma J45.909 Hyperlipidemia E78.5 Type 2 diabetes mellitus E11.9 Chronic respiratory failure with hypoxia and hypercapnia J96.11; J96.12 Nausea R11.0 DVT prophylaxis Z29.9 Hypertension I10
[2021-10-21] MEDS: ATORVASTATIN 10 MG TAB PO SCH (21:20)
[2021-10-21] MEDS: MONTELUKAST SODIUM 10 MG TABLET PO SCH (21:20)
[2021-10-22] MEDS: INSULIN ASPART PER UNIT SC SCH ×4 (08:40→21:44)
[2021-10-22] MEDS: POLYETHYLENE (MIRALAX) 17 GM PACK PO SCH (08:41)
[2021-10-22] MEDS: DOCUSATE SODIUM/SENNA 50/8.6MG TAB PO SCH (08:41)
[2021-10-22] MEDS: FLUTICASONE/VILANTEROL 100/25MCG 14 PUFFS/INHALER INH SCH (08:44)
[2021-10-22] MEDS ORDERED: INSULIN GLARGINE SOLOSTAR 100 UNITS/ML 3 ML PEN SC SCH (09:00)
--- NOTE | 2021-10-22 09:02 | Neurology Progress Note ---
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 She had a left cerebellar stroke which could explain her balance and the multiple bilateral strokes could explain other symptoms including confusion. A recent CT scan of the head reveals a new left cerebellar stroke. MRI did show a punctate stroke on that side but this might be an actual new stroke compared to previous. She is encephalopathic and possibly improving today compared to yesterday. Seroquel has been stopped. She had no extrapyramidal side effects today. She has no other focal deficits on exam today. Recommendations new 1. Control blood pressure as you are doing, aiming for a mean arterial pressure of 100. avoid over-correction. 2. The patient would be a statin candidate but I would avoid high doses given her age and lipid levels. 3. Continue apixaban 2.5 milligrams twice daily and 81 milligram aspirin tablet daily. 4. Increase activity as able with physical therapy, occupational therapy, and speech therapy consult. 5. she may have had a new left cerebellar stroke and another MRI would be needed to prove this. I am not certain what it would change in our therapy unless it was to increase the anticoagulant. I will follow Overall, I spent a total of 35 minutes on this case including review of records, direct evaluation the patient bedside, and discussion of the case with the patient and RN at bedside, and Lilly Robertson PA-C, including differential diagnosis and treatment options. Admission and Anticipated Discharge Date Admission Date: October 11, 2021 Subjective patient is not had any overt seizures noted by the nursing staff. She is not responding well but a little more alert today than yesterday. Blood pressure is 147/84 and she is afebrile. Laboratory studies yesterday revealed a unremarkable CBC and Chem profile although BUN and creatinine were slightly elevated and glucose was 129. CT scan of the head October 21 showed expected evolution of several infarcts including the left occipital left thalamic lesions. The left cerebellar hemisphere had a new hypodensity not seen on the prior CT scan of the head October 14. MRI of the brain October 10 showed a punctate left cerebellar stroke. Results & Data ([facility]) Vital Signs (Past 12 Hours) Vital Signs Temp Pulse Resp BP BP Pulse Ox 10/22/21 07:40 36.4 C L 68 16 147/84 H 94 10/21/21 22:59 36.9 C 77 18 166/96 H 92 Exam (Neuro) Physical Exam: She is awake and will make eye contact briefly to the left but will not follow commands or say words. She begins to mouth the words as if she wants to talk but nothing comes out. She has some occasional twitches of the limbs but no rhythmic jerking or other abnormal involuntary movements. Tone is good in all 4 limbs and strength seems symmetrical in all 4 limbs. She is appropriate withdrawal to light stimuli in all 4 limbs. There is no facial droop and no obvious nystagmus. 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
[2021-10-22] MEDS: AMPICILLIN 1,000 MG in SODIUM CHLOR 0.9% AD-VAN 50 ML IV SCH ×2 (09:34→15:36)
[2021-10-22] MEDS: INSULIN GLARGINE SOLOSTAR 100 UNITS/ML 3 ML PEN SC SCH (09:37)
[2021-10-22] MEDS: PYRIDOXINE HCL 50 MG TAB PO SCH (09:42)
[2021-10-22] MEDS: lisinopril 20 MG TAB PO SCH ×2 (09:42→21:46)
[2021-10-22] MEDS: LIDOCAINE 5% 1 PATCH TD SCH (09:42)
[2021-10-22] MEDS: PANTOprazole 40 MG TAB PO SCH (09:42)
[2021-10-22] MEDS: APIXABAN 2.5 MG TAB PO SCH (09:42)
[2021-10-22] MEDS: IRON POLYSACCHARIDE COMPLEX 150 MG CAPSULE PO SCH (09:42)
[2021-10-22] MEDS: amLODIPine BESYLATE 5 MG TAB PO SCH (09:42)
[2021-10-22] MEDS: FOLIC ACID 1 MG TAB PO SCH (09:42)
[2021-10-22] MEDS: ASPIRIN 81 MG ECTAB PO SCH (09:42)
[2021-10-22] MEDS: DICLOFENAC SOD 1% GEL 100 GM TUBE EXT SCH ×3 (09:43→21:51)
[2021-10-22] MEDS: CEFEPIME 2,000 MG in SYRINGE 0 ML IV SCH (12:25)
[2021-10-22] MEDS: SODIUM CHLORIDE 0.9% 1000ML 1,000 ML IV SCH (15:13)
[2021-10-22] MEDS: ENOXAPARIN 100 MG/1ML SYR SQ SCH (15:36)
--- NOTE | 2021-10-22 18:03 | Hospitalist Progress Note ---
Date of Service October 22, 2021 Assessment & Plan (1) Acute encephalopathy: Plan: UNCHANGED - is more interactive today in regards to physical movement but is non-communicative - hopefully this is more the UTI/Seroquel but concerned that this could be all CVA and possibly new baseline mentation; no noticed seizure activity -- If continues to not be able to take in orals may need to further discuss with POA/family about next interventions - artificial nutrition? comfort measures? MULTIFACTORIAL -- Stroke/delirium/mood disorder/ insomnia/hypercalcemia/ underlying dementia/UTI Admitted with headache, found to have MRI brain with numerous b/l strokes in the posterior and anterior circulations (of note prior MRI Jul 2021 admitted for CHF and vertigo following URI, noted white matter hyperintense foci favoring extensive small vessel disease and se veral old lacunar infarcts noted at that time along with several hypointense foci on gradient echo sequence suggesting trace old blood products) ECHO WITHOUT source of thrombus. Could look at aorta for plaque but defer for now. * --> This suggests embolic etiology. * Prior review of chart with elevations in homocysteine and MMA * (did have B12 def at that time) -->placed on B6/folate as well as her usual B12 * Repeat CT Head evening 10/14 for fall -->Expected evolutionary changes of left occipital predominant infarcts. Punctate right frontoparietal infarct seen on MRI is not seen on today's exam.No evidence of hemorrhagic conversion. Due to high likelihood for embolic phenomenon she was empirically anticoagulated with heparin drip followed byEliquis 2.5mg BID(given will be 86 next month, Cr 1.7) - due to no oral intake converted to Lovenox Continue ASA 81mg daily (when able to take pills) Appreciate neurology consult and discussed with Dr. Markham today and evaluated at bedside; PT, OT, speech --> patient with medicare and can go to [facility] when medically stable - but not there yet Sundowning/dementia/delirium/mood disorder/insomnia * possible acute akathisia/restlessness from getting Seroquel + olanzapine x 2 in nights previous which was instructed to be held and since discontinued. If needed ONLY 2.5mg IM but attempting to avoid. * Sundowning --> Seroquel 50mg + Melatonin PRN (will hold for now given lethargy) * Psych on board and continues to follow -- appreciate continued recommendations/assistance greatly * Possibly poor sleep contributing? if this is more delirium associated with non-CVA etiologies * If agitated, can consider 2.5mg IM Olanzepine but would AVOID IF AT ALL POSSIBLE - has been more sedated an not agitated over past couple days UTI * Growing Pseudomonas and Enterococcus - Continue Ampicillin and Cefepime - con tinue until the Headache * --> Suspect musculoskeletal component * --> Tylenol 1g Q8H prn. Lidocaine patch/heat * --> Per discussion with psych (consulted 10/16 for assistance with medication management), can given 50mg benadryl which was administered but slight confusion/pleasant though but would avoid further dosing * Avoid further tramadol/anticholintergics causing worsening sundowning/agitation * --> If able to communicate that headache worsens, consider repeating CT again, poppy given falls while in the hospital earlier in the week; temporal arteritis NOT suspected Tx of hypercalcemia * Hypercalcemia on admit (suspect possibly due to some level of dehydration), checked Vit D, elevated. Stopped home VIt D/calcium supplementation. Repeat Ca wnl (2) Acute embolic stroke: Plan: - Neuro consulted (Discussed with Dr. Markham today), MRI/ECHO/A1c/lipid, PT/OT/Speech -- plans for [facility] at d/c (if able) - Also with homonymous hemianopsia due to recent CVA - should have chaser helper F/U post-discharge - [place] to be embolic, Eliquis/ASA at discharge Tx of encephalopathy/UTI as above - possibly component of hypertensive encephalopathy - aim for a MAP of 100 and avoid overcorrection Repeat Head CT due to being more sleepy on 10/21 - no acute hemorrhage; expected evolution changes of several infarcts; 1.6 x 0.7 cm hypodensity within the L cerebellar hemisphere new compared to prior head CT however there was a punctate infarct in the L cerebellum on last MRI - just more pronounced vs new CVA? Increase Eliquis vs R/O other causes of encephalopathy? -- Given inability to take orals current doing therapeutic Lovenox (3) (HFpEF) heart failure with preserved ejection fraction: Plan: - Hx Pulm HTN on 2L NC continuous but had been on RA --> back to 96% on RA -- Hypoxia when sleeping and very likely with underlying sleep apnea; did VBG given her sleepiness on only mildly elevated CO2 so would not explain mentation - No decompensation - Lasix on hold for now (4) Hypertension: Plan: - Continue Norvasc 5 mg daily; Lasix 20 mg daily; Lisinopril 20 mg BID (hold while unable to take orals) (5) CKD (chronic kidney disease), stage III: Plan: - Baseline Cr 1.4 to 1.6 - Continue to routinely monitor - at baseline currently (6) Asthma: Plan: - No exacerbation at this time; Albuterol PRN (7) Hyperlipidemia: Plan: - Cont Lipitor 10 mg daily. (8) Type 2 diabetes mellitus: Plan: - HbA1C 6.6% - Hold home orals; appreciate pharmacy management (9) Chronic respiratory failure with hypoxia and hypercapnia: Plan: - Hx pulm HTN - Stable O2 sats in room air -- suspect some degree of sleep apnea/snoring observed --> previously noted needing 2L NC continuously in July 2021 admission. Of note also had HUMPHREY and received venofer x 2 (negative fecal occult) during that admission. (10) Nausea: Plan: - Anti-emetics PRN - KUB with radiolucency and reported concern possible free air 10/[address] which did not indicate free air No nausea reported today, tolerating diet without issue Continue to monitor (11) DVT prophylaxis: Plan: - Eliquis 2.5mg BID given going to be 86 next month when taking orals; currently using Lovenox Plan: - From [facility] - Psych on consult - Cefepime/Ampicillin for UTI - Uncertain of mentation and if this will clear; not stable for transfer to [facility] at this time Admission and Anticipated Discharge Date Admission Date: October 11, 2021 Subjective No acute events overnight. Physically moving more today however still will not interact. Somewhat opens her eyes but will not speak. More interactive today compared to yesterday but not eating or drinking. No signs of distress Review of Systems Review of Systems: Unobtainable due to cognitive status Physical Exam Physical Exam: PHYSICAL EXAM General Appearance: NAD she is moving her arms/legs and will move but will not communicate HEENT: Head is normocephalic/atraumatic Neck: Supple; Trachea midline; Neg JVD Heart: RRR with murmur Lungs: CTA in all lung dominique bilaterally but diminished; Respirations unlabored; Neg accessory muscle use Abdomen: Soft, non-tender (no grimacing), non-distended; Positive BS x 4 quadrants Extremities: Neg cyanosis or edema Psychiatric: Noncommunicative Skin: Normal Color Results & Data Results & Data ([facility]) Vital Signs (Past 12 Hours) Vital Signs Temp Pulse Resp BP Pulse Ox 10/22/21 14:44 36.6 C 73 16 119/86 94 10/22/21 07:40 36.4 C L 68 16 147/84 H 94 PG Care Time/CCT Total # of Minutes Spent Total Time Spent with Patient: Total time spent is greater than 50% in coordination of care (as documented) at patient's floor/unit and/or counseling patient: Coding Level of Care Code 98904 Subseq Hosp Care Lvl 3 Diagnoses Acute encephalopathy G93.40 Acute embolic stroke I63.9 (HFpEF) heart failure with preserved ejection fraction I50.30 Hypertension I10 CKD (chronic kidney disease), stage III N18.30 Asthma J45.909 Hyperlipidemia E78.5 Type 2 diabetes mellitus E11.9 Chronic respiratory failure with hypoxia and hypercapnia J96.11; J96.12 Nausea R11.0 DVT prophylaxis Z29.9
[2021-10-22] MEDS: MONTELUKAST SODIUM 10 MG TABLET PO SCH (21:45)
[2021-10-22] MEDS: ATORVASTATIN 10 MG TAB PO SCH (21:47)
[2021-10-23] MEDS: CEFEPIME 2,000 MG in SYRINGE 0 ML IV SCH ×2 (01:11→13:57)
[2021-10-23] MEDS: ENOXAPARIN 100 MG/1ML SYR SQ SCH ×3 (01:12→20:45)
[2021-10-23] MEDS: AMPICILLIN 1,000 MG in SODIUM CHLOR 0.9% AD-VAN 50 ML IV SCH ×3 (01:20→16:02)
[2021-10-23] MEDS: SODIUM CHLORIDE 0.9% 1000ML 1,000 ML IV SCH (05:33)
[2021-10-23 08:31] LABS: Creatinine Clr Calc Pharmacy 36.5 ml/min; Est GFR (African American) 44.9 ml/min; Est GFR (Non-African American) 38.7 ml/min
--- NOTE | 2021-10-23 08:47 | Neurology Progress Note ---
Date of Service October 23, 2021 Assessment & Plan (1) Acute embolic stroke: (2) Acute encephalopathy: (3) Hypertension: (4) 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: Plan: Patient had multiple acute embolic type strokes around October 09, in multiple vascular distributions, the largest was in the left occipital head region which explains her right homonymous hemianopsia. She had a left cerebellar stroke which could explain her balance and the multiple bilateral strokes could explain other symptoms including confusion. A recent CT scan of the head reveals a new left cerebellar stroke. MRI did show a punctate stroke on that side but this might be an actual new stroke compared to previous. I believe that her altered mental status is explained by an encephalopathic process which is not really improving over the last day. She has what appears to be myoclonic jerks and I believe this is part of the encephalopathy although I cannot exclude seizure activity. Seroquel has been stopped. She had no extrapyramidal side effects today. She has no other focal deficits on exam today. Recommendations new 1. EEG routine 2. consider LP depending on her clinical course. 3. consider repeating MRI of the brain. 4. Continue apixaban 2.5 milligrams twice daily and 81 milligram aspirin tablet daily. Overall, I spent a total of 35 minutes on this case including review of records, direct evaluation the patient bedside, and discussion of the case with the patient and RN at bedside, and Lilly Robertson PA-C, including differential diagnosis and treatment options. Admission and Anticipated Discharge Date Admission Date: October 11, 2021 Subjective nursing reports that the patient did sit up and swallow pills yesterday but has not been very responsive at times yesterday and including this morning. She is also "twitching" more. Blood pressure is 114/54. She is afebrile. CBC had a normal white count. Results & Data ([facility]) Vital Signs (Past 12 Hours) Vital Signs Temp Pulse Resp BP BP Pulse Ox 10/23/21 07:06 36.7 C 72 16 114/54 L 93 10/22/21 22:54 36.9 C 88 20 161/92 H 94 Exam (Neuro) Physical Exam: She is lying in bed and has twitches and quick myoclonic like jerks of the head and arms. When I pull her arm out and extend her wrist she has 1 or 2 beats of an asterixis type movement on each side. Is not consistent. She will tried open her eyes and look with voice but does not really make eye contact or track. She resists eye opening and resist manipulation of her limbs. Her strength is symmetrical in the limbs. PG Care Time/CCT Total # of Minutes Spent Total Time Spent with Patient: Total time spent is greater than 50% in coordination of care (as documented) at patient's floor/unit and/or counseling patient: Coding Level of Care Code 95356 Subseq Hosp Care Lvl 3 Diagnoses Acute embolic stroke I63.9 Acute encephalopathy G93.40 Hypertension I10 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 I69.398; H53.469 Time Spent (min) 35
[2021-10-23] MEDS: INSULIN GLARGINE SOLOSTAR 100 UNITS/ML 3 ML PEN SC SCH (09:17)
[2021-10-23] MEDS: NYSTATIN POWDER 15GM BTL EXT PRN (09:28)
[2021-10-23] MEDS: INSULIN ASPART PER UNIT SC SCH ×4 (09:28→21:14)
[2021-10-23] MEDS: FLUTICASONE/VILANTEROL 100/25MCG 14 PUFFS/INHALER INH SCH (09:31)
[2021-10-23] MEDS: DICLOFENAC SOD 1% GEL 100 GM TUBE EXT SCH ×3 (09:31→20:48)
[2021-10-23] MEDS: lisinopril 20 MG TAB PO SCH ×2 (09:31→20:55)
[2021-10-23] MEDS: PANTOprazole 40 MG TAB PO SCH (09:31)
[2021-10-23] MEDS: amLODIPine BESYLATE 5 MG TAB PO SCH (09:31)
[2021-10-23] MEDS: LIDOCAINE 5% 1 PATCH TD SCH (09:31)
[2021-10-23] MEDS: ASPIRIN 81 MG ECTAB PO SCH (09:31)
[2021-10-23] MEDS: FOLIC ACID 1 MG TAB PO SCH (09:31)
[2021-10-23] MEDS: IRON POLYSACCHARIDE COMPLEX 150 MG CAPSULE PO SCH (09:31)
[2021-10-23] MEDS: POLYETHYLENE (MIRALAX) 17 GM PACK PO SCH (09:31)
[2021-10-23] MEDS: DOCUSATE SODIUM/SENNA 50/8.6MG TAB PO SCH (09:31)
[2021-10-23] MEDS: PYRIDOXINE HCL 50 MG TAB PO SCH (09:32)
--- NOTE | 2021-10-23 11:02 | Pharmacy Report ---
Pharmacy Glycemic Short Note 2 - Date of Service October 23, 2021 - Glycemic Short BSG Results (Last 24 hours): 10/22/21 10/22/21 10/22/21 11:53 16:53 20:40 POC Glucose 91 93 93 10/23/21 08:04 POC Glucose 94 OUTPATIENT ANTIDIABETIC REGIMEN: * Amaryl 1 mg daily * Metformin 500 mg BID * HbA1c: 6.6% (10/10/21) ASSESSMENT: 10/23: * Patient received 12 units of basal insulin yesterday and no bolus at all. * Checked with RN, she has not been having any oral food intake at all. * Fasting BSG yesterday was 92 mg/dl and the basal dose was reduced yesterday. Today fasting is 94 mg/dl. Continued same basal dose of 12 units today. The basal dose kept her blood sugars steady between 91 mg/dl to 93 mg/dl all day yesterday. * Reduced basal dose to 10 units for tomorrow 10/21/21: * Patient's BSGs remain stable. * No changes indicated at this time. 10/19: * Blood sugars at goal, pre-lunch sugar trending low, loosen CR at breakfast to prevent hypoglycemia prior to lunch * Fasting 154mg/dl, continue Lantus dose * Ampicillin + Cefepime for UTI 10/17: * BSGs yesterday were controlled at [phone] mg/dL. Received 15 units of Lantus and 4 units of Novolog (TDD = 19 units) * Fasting BSG above goal for several days now, 159 mg/dL this AM. Will increase Lantus slightly this AM. * Postprandials well controlled. No change in Novolog necessary. 10/15: * BSGs yesterday of 167, 207, 59, and 142 mg/dL * Received 27 units of insulin (15 of which was basal) * Fasting BSG of 140 mg/dL this morning - will continue increased dose of Lantus 15 units daily * Given low BSG at dinner, will loosen lunch, dinner, HS Novolog parameters PLAN FOR INPATIENT GLYCEMIC CONTROL: * Hold outpatient oral diabetes medications * Basal insulin - * Lantus 12 units SC QAM, reduced to 10 units SC QAM starting tomorrow. * Bolus insulin * NovoLog per scale ACHS or Q6hrs while NPO * Goal Range: Low 110 mg/dL - High 140 mg/dL at breakfast, 120-150 mg/dL with lunch, dinner, and HS * Correction Factor: 20 mg/dL/unit with breakfast, 35 mg/dL/unit with lunch, dinner, and HS * Nutritional / Prandial insulin per carb ratio of 1 unit per 8 grams CHO consumed, 1 unit per 12 grams CHO consumed with lunch, dinner, HS PLAN FOR DISCHARGE: * HbA1C = 6.6% on 10/10/21 * Goal A1c is less than 8% in this patient given her age and co-morbidities. A1c of 6.6% indicates that she is a well controlled diabetic at home with only oral anti-diabetic meds. * Recommend continue current meds (Metformin 500 mg BID with meals and Amaryl 1 mg daily with a meal) on discharge as long as patient is not reporting hypoglycemia at home.
[2021-10-23] MEDS ORDERED: levETIRAcetam 1,000 MG in 0.9 % SODIUM CHLORIDE 100 ML IV STA (18:39)
--- NOTE | 2021-10-23 18:54 | Electroencephalogram ---
EEG Procedure Note Date of Service October 23, 2021 Start / End Times Start Time: 1141 End Time: 1201 Referring Physician Lilly Robertson PA-C History 85 year old with acute encephalopathy and myoclonic jerks Home Medication List Medication Instructions Recorded Confirmed Type tramadol 50 mg tablet 50 mg PO Q8H PRN #90 tab 10/03/20 10/09/21 Rx amlodipine 5 mg tablet 5 mg PO DAILY #90 tab 02/04/21 10/09/21 Rx metformin 500 mg tablet 500 mg PO BID #180 tab 03/06/21 10/09/21 Rx acetaminophen 325 mg tablet 650 mg PO Q4H PRN #120 tab MDD 3g 05/26/21 10/09/21 Rx or 9 tabs atorvastatin 10 mg tablet 10 mg PO HS #90 tab 05/26/21 10/09/21 Rx cyanocobalamin (vitamin B-12) 1,000 mcg IM MONTHLY #1 ml 05/26/21 10/09/21 Rx 1,000 mcg/mL injection solution glimepiride 1 mg tablet 1 mg PO QAM #90 tab 05/26/21 10/09/21 Rx lisinopril 20 mg tablet 20 mg PO BID #180 tab 05/26/21 10/09/21 Rx metoprolol tartrate 50 mg tablet 50 mg PO BID #180 tab 05/26/21 10/09/21 Rx montelukast 10 mg tablet 10 mg PO HS #90 tab 05/26/21 10/09/21 Rx pantoprazole 40 mg tablet,delayed 40 mg PO DAILY #90 tab 05/26/21 10/09/21 Rx release quetiapine 50 mg tablet 50 mg PO HS #90 tab 05/26/21 10/09/21 Rx albuterol sulfate 90 mcg/actuation 2 puff INHALATION Q6H PRN #8.5 g 06/27/21 Rx aerosol inhaler fluticasone 100 mcg-salmeterol 50 1 inh INHALATION BID #180 ea 06/27/21 10/09/21 Rx mcg/dose blistr powdr for inhalation (Advair Diskus) cholecalciferol (vitamin D3) 125 125 mcg PO DAILY #90 tab 07/01/21 10/09/21 Rx mcg (5,000 unit) tablet polysaccharide iron complex 150 mg 150 mg PO DAILY #90 cap 07/01/21 10/09/21 Rx iron capsule (Ferrex) Oxygen Home #1 ea 07/13/21 10/09/21 Rx aspirin 81 mg tablet,delayed 81 mg PO DAILY #90 tab 10/01/21 10/09/21 Rx release (Aspirin Low Dose) acetaminophen 325 mg tablet 650 mg PO HS 10/09/21 10/09/21 History calcium carbonate 600 mg-vitamin 1 tab PO DAILY 10/09/21 10/09/21 History D3 5 mcg (200 unit) tablet (Calcium 600 + D(3)) dextran 70-hypromellose eye drops 1 drp OPHTHALMIC (EYE) DAILY PRN 10/09/21 10/09/21 History in a dropperette (Artificial Tears (PF)) furosemide 20 mg tablet (Lasix) 20 mg PO DAILY 10/09/21 10/09/21 History guaifenesin 600 mg tablet, 600 mg PO Q12H PRN 10/09/21 10/09/21 History extended release 12 hr (Mucinex) methyl salicylate 15 %-menthol 10 1 applic TOPICAL BID PRN 10/09/21 10/09/21 History % topical cream nystatin 100,000 unit/gram topical 1 appln TOP TID PRN 10/09/21 10/09/21 History powder (Nystop) sennosides 8.6 mg tablet (Senokot) 8.6 mg PO DAILY PRN 10/09/21 10/09/21 History Inpatient Medication List Acetaminophen (Acetaminophen 500 Mg Tab) 1,000 mg PO Q8H PRN PRN Reason: Pain, fever or headache Stop: 11/09/21 01:44 Last Admin: 10/19/21 21:15 Dose: 1,000 mg Documented by: [id number] Admin: 10/19/21 08:45 Dose: 1,000 mg Documented by: [id number] Admin: 10/18/21 11:16 Dose: 1,000 mg Documented by: [id number] Admin: 10/17/21 22:20 Dose: 1,000 mg Documented by: [id number] Admin: 10/17/21 10:28 Dose: 1,000 mg Documented by: [id number] Amlodipine Besylate (Amlodipine Besylate 5 Mg Tab) 5 mg PO DAILY [facility] Stop: 11/09/21 08:59 Last Admin: 10/23/21 09:31 Dose: Not Given Documented by: [id number] Admin: 10/22/21 09:42 Dose: Not Given Documented by: [id number] Admin: 10/21/21 08:52 Dose: Not Given Documented by: [id number] Admin: 10/20/21 08:09 Dose: Not Given Documented by: [id number] Admin: 10/19/21 09:00 Dose: 5 mg Documented by: [id number] Admin: 10/13/21 08:12 Dose: 5 mg Documented by: [id number] Admin: 10/12/21 07:57 Dose: 5 mg Documented by: [id number] Admin: 10/11/21 08:16 Dose: 5 mg Documented by: [id number] Admin: 10/10/21 09:07 Dose: 5 mg Documented by: [id number] Apixaban (Apixaban 2.5 Mg Tab) 2.5 mg PO BID [facility] Stop: 11/10/21 20:59 Last Admin: 10/22/21 09:42 Dose: Not Given Documented by: [id number] Admin: 10/21/21 21:20 Dose: Not Given Documented by: [id number] Admin: 10/21/21 08:52 Dose: Not Given Documented by: [id number] Admin: 10/20/21 20:56 Dose: 2.5 mg Documented by: [id number] Admin: 10/20/21 09:42 Dose: Not Given Documented by: [id number] Admin: 10/19/21 21:02 Dose: 2.5 mg Documented by: [id number] Admin: 10/19/21 08:41 Dose: 2.5 mg Documented by: [id number] Admin: 10/18/21 20:52 Dose: 2.5 mg Documented by: [id number] Admin: 10/18/21 08:22 Dose: 2.5 mg Documented by: [id number] Admin: 10/17/21 21:50 Dose: 2.5 mg Documented by: [id number] Admin: 10/17/21 12:31 Dose: 2.5 mg Documented by: [id number] Admin: 10/16/21 21:16 Dose: 2.5 mg Documented by: [id number] Admin: 10/16/21 10:10 Dose: Not Given Documented by: [id number] Admin: 10/15/21 21:26 Dose: 2.5 mg Documented by: [id number] Admin: 10/15/21 08:51 Dose: 2.5 mg Documented by: [id number] Admin: 10/14/21 21:09 Dose: 2.5 mg Documented by: [id number] Admin: 10/14/21 10:17 Dose: 2.5 mg Documented by: [id number] Admin: 10/13/21 20:43 Dose: 2.5 mg Documented by: [id number] Admin: 10/13/21 08:11 Dose: 2.5 mg Documented by: [id number] Admin: 10/12/21 20:34 Dose: 2.5 mg Documented by: [id number] Admin: 10/12/21 07:57 Dose: 2.5 mg Documented by: [id number] Admin: 10/11/21 20:12 Dose: 2.5 mg Documented by: [id number] Aspirin (Aspirin 81 Mg Ectab) 81 mg PO DAILY [facility] Stop: 11/09/21 08:59 Last Admin: 10/23/21 09:31 Dose: Not Given Documented by: [id number] Admin: 10/22/21 09:42 Dose: Not Given Documented by: [id number] Admin: 10/21/21 08:53 Dose: Not Given Documented by: [id number] Admin: 10/20/21 09:42 Dose: Not Given Documented by: [id number] Admin: 10/19/21 08:41 Dose: 81 mg Documented by: [id number] Admin: 10/18/21 08:22 Dose: 81 mg Documented by: [id number] Admin: 10/17/21 10:30 Dose: 81 mg Documented by: [id number] Admin: 10/16/21 08:18 Dose: Not Given Documented by: [id number] Admin: 10/15/21 08:51 Dose: 81 mg Documented by: [id number] Admin: 10/14/21 10:18 Dose: 81 mg Documented by: [id number] Admin: 10/13/21 08:12 Dose: 81 mg Documented by: [id number] Admin: 10/12/21 07:57 Dose: 81 mg Documented by: [id number] Admin: 10/11/21 08:17 Dose: 81 mg Documented by: [id number] Admin: 10/10/21 09:07 Dose: 81 mg Documented by: [id number] Atorvastatin Calcium (Atorvastatin 10 Mg Tab) 10 mg PO HS [facility] Stop: 11/09/21 20:59 Last Admin: 10/22/21 21:47 Dose: 10 mg Documented by: [id number] Admin: 10/21/21 21:20 Dose: Not Given Documented by: [id number] Admin: 10/20/21 20:55 Dose: 10 mg Documented by: [id number] Admin: 10/19/21 21:02 Dose: 10 mg Documented by: [id number] Admin: 10/18/21 20:53 Dose: 10 mg Documented by: [id number] Admin: 10/17/21 21:48 Dose: 10 mg Documented by: [id number] Admin: 10/16/21 21:16 Dose: 10 mg Documented by: [id number] Admin: 10/15/21 21:26 Dose: 10 mg Documented by: [id number] Admin: 10/14/21 21:10 Dose: 10 mg Documented by: [id number] Admin: 10/13/21 20:43 Dose: 10 mg Documented by: [id number] Admin: 10/12/21 20:35 Dose: 10 mg Documented by: [id number] Admin: 10/11/21 20:04 Dose: 10 mg Documented by: [id number] Admin: 10/10/21 20:16 Dose: 10 mg Documented by: [id number] Diclofenac Sodium (Diclofenac Sod 1% Gel 100 Gm Tube) 2 gm EXT TID [facility] Stop: 11/17/21 13:59 Last Admin: 10/23/21 13:22 Dose: Not Given Documented by: [id number] Admin: 10/23/21 09:31 Dose: Not Given Documented by: [id number] Admin: 10/22/21 21:51 Dose: 2 gm Documented by: [id number] Admin: 10/22/21 14:34 Dose: Not Given Documented by: [id number] Admin: 10/22/21 09:43 Dose: Not Given Documented by: [id number] Admin: 10/21/21 21:43 Dose: 2 gm Documented by: [id number] Admin: 10/21/21 14:14 Dose: Not Given Documented by: [id number] Admin: 10/21/21 08:53 Dose: Not Given Documented by: [id number] Admin: 10/20/21 21:00 Dose: Not Given Documented by: [id number] Admin: 10/20/21 14:23 Dose: Not Given Documented by: [id number] Admin: 10/20/21 09:40 Dose: Not Given Documented by: [id number] Admin: 10/19/21 21:04 Dose: 2 gm Documented by: [id number] Admin: 10/19/21 14:00 Dose: 2 gm Documented by: [id number] Admin: 10/19/21 08:41 Dose: 2 gm Documented by: [id number] Admin: 10/18/21 20:53 Dose: 2 gm Documented by: [id number] Admin: 10/18/21 13:35 Dose: 2 gm Documented by: [id number] Enoxaparin Sodium (Enoxaparin 100 Mg/1ml Syr) 90 mg SQ BID [facility] Stop: 11/21/21 14:59 Last Admin: 10/23/21 09:30 Dose: 90 mg Documented by: [id number] Admin: 10/23/21 01:12 Dose: 90 mg Documented by: [id number] Admin: 10/22/21 15:36 Dose: 90 mg Documented by: [id number] Fluticasone/Vilanterol (Fluticasone/Vilanterol 100/25mcg 14 Puffs/Inhaler) 1 puffs INH DAILY [facility] Stop: 11/09/21 08:59 Last Admin: 10/23/21 09:31 Dose: Not Given Documented by: [id number] Admin: 10/22/21 08:44 Dose: Not Given Documented by: [id number] Admin: 10/21/21 08:53 Dose: Not Given Documented by: [id number] Admin: 10/20/21 09:41 Dose: Not Given Documented by: [id number] Admin: 10/19/21 08:40 Dose: 1 puffs Documented by: [id number] Admin: 10/18/21 08:23 Dose: 1 puffs Documented by: [id number] Admin: 10/17/21 10:35 Dose: 1 puffs Documented by: [id number] Admin: 10/16/21 08:18 Dose: Not Given Documented by: [id number] Admin: 10/15/21 08:52 Dose: 1 puffs Documented by: [id number] Admin: 10/14/21 10:20 Dose: 1 puffs Documented by: [id number] Admin: 10/13/21 08:13 Dose: 1 puffs Documented by: [id number] Admin: 10/12/21 07:58 Dose: 1 puffs Documented by: [id number] Admin: 10/11/21 08:15 Dose: 1 puffs Documented by: [id number] Admin: 10/10/21 09:06 Dose: 1 puffs Documented by: [id number] Folic Acid (Folic Acid 1 Mg Tab) 1 mg PO QAM [facility] Stop: 11/14/21 08:59 Last Admin: 10/23/21 09:31 Dose: Not Given Documented by: [id number] Admin: 10/22/21 09:42 Dose: Not Given Documented by: [id number] Admin: 10/21/21 08:53 Dose: Not Given Documented by: [id number] Admin: 10/20/21 09:41 Dose: Not Given Documented by: [id number] Admin: 10/19/21 08:41 Dose: 1 mg Documented by: [id number] Admin: 10/18/21 08:22 Dose: 1 mg Documented by: [id number] Admin: 10/17/21 10:29 Dose: 1 mg Documented by: [id number] Admin: 10/16/21 08:18 Dose: Not Given Documented by: [id number] Admin: 10/15/21 08:51 Dose: 1 mg Documented by: [id number] Furosemide (Furosemide 20 Mg Tab) 20 mg PO DAILY [facility] Stop: 11/09/21 08:59 Last Admin: 10/21/21 08:53 Dose: Not Given Documented by: [id number] Admin: 10/20/21 09:41 Dose: Not Given Documented by: [id number] Admin: 10/17/21 10:28 Dose: 20 mg Documented by: [id number] Admin: 10/16/21 08:19 Dose: Not Given Documented by: [id number] Admin: 10/15/21 09:36 Dose: Not Given Documented by: [id number] Admin: 10/13/21 08:13 Dose: 20 mg Documented by: [id number] Admin: 10/12/21 07:57 Dose: 20 mg Documented by: [id number] Admin: 10/11/21 08:16 Dose: 20 mg Documented by: [id number] Admin: 10/10/21 09:08 Dose: 20 mg Documented by: [id number] Hydralazine HCl (Hydralazine Hcl 20 Mg/Ml Vial) 5 mg IV Q8H PRN PRN Reason: hypertension Stop: 11/13/21 08:21 Last Admin: 10/18/21 22:40 Dose: 5 mg Documented by: [id number] Cefepime HCl 2,000 mg/ Syringe 20 mls @ 5 mls/min IV Q12H [facility]; Protocol Stop: 10/26/21 12:59 Last Admin: 10/23/21 13:57 Dose: 5 mls/min Documented by: [id number] Admin: 10/23/21 01:11 Dose: 5 mls/min Documented by: [id number] Admin: 10/22/21 12:25 Dose: 5 mls/min Documented by: [id number] Admin: 10/21/21 23:43 Dose: 5 mls/min Documented by: [id number] Admin: 10/21/21 12:30 Dose: 5 mls/min Documented by: [id number] Admin: 10/20/21 23:23 Dose: 5 mls/min Documented by: [id number] Admin: 10/20/21 12:02 Dose: 5 mls/min Documented by: [id number] Admin: 10/20/21 00:14 Dose: 5 mls/min Documented by: [id number] Admin: 10/19/21 12:40 Dose: 5 mls/min Documented by: [id number] Admin: 10/19/21 00:03 Dose: 5 mls/min Documented by: [id number] Admin: 10/18/21 12:14 Dose: 5 mls/min Documented by: [id number] Ampicillin Sodium 1,000 mg/ (Sodium Chloride) 50 mls @ 100 mls/hr IV Q8H [facility]; Protocol Stop: 10/27/21 16:29 Last Infusion: 10/23/21 17:28 Dose: 0 mls/hr Documented by: [id number] Admin: 10/23/21 16:02 Dose: 100 mls/hr Documented by: [id number] Infusion: 10/23/21 11:22 Dose: 0 mls/hr Documented by: [id number] Admin: 10/23/21 10:34 Dose: 100 mls/hr Documented by: [id number] Infusion: 10/23/21 01:50 Dose: 0 mls/hr Documented by: [id number] Admin: 10/23/21 01:20 Dose: 100 mls/hr Documented by: [id number] Infusion: 10/22/21 16:09 Dose: 0 mls/hr Documented by: [id number] Admin: 10/22/21 15:36 Dose: 100 mls/hr Documented by: [id number] Infusion: 10/22/21 10:39 Dose: 0 mls/hr Documented by: [id number] Admin: 10/22/21 09:34 Dose: 100 mls/hr Documented by: [id number] Infusion: 10/22/21 00:22 Dose: 0 mls/hr Documented by: [id number] Admin: 10/21/21 23:49 Dose: 100 mls/hr Documented by: [id number] Infusion: 10/21/21 16:58 Dose: 0 mls/hr Documented by: [id number] Admin: 10/21/21 16:26 Dose: 100 mls/hr Documented by: [id number] Infusion: 10/21/21 09:22 Dose: 0 mls/hr Documented by: [id number] Admin: 10/21/21 08:45 Dose: 100 mls/hr Documented by: [id number] Infusion: 10/21/21 00:10 Dose: 0 mls/hr Documented by: [id number] Admin: 10/20/21 23:30 Dose: 100 mls/hr Documented by: [id number] Infusion: 10/20/21 17:53 Dose: 0 mls/hr Documented by: [id number] Admin: 10/20/21 16:30 Dose: 100 mls/hr Documented by: [id number] Infusion: 10/20/21 09:40 Dose: 0 mls/hr Documented by: [id number] Admin: 10/20/21 08:19 Dose: 100 mls/hr Documented by: [id number] Infusion: 10/20/21 00:59 Dose: 0 mls/hr Documented by: [id number] Admin: 10/20/21 00:29 Dose: 100 mls/hr Documented by: [id number] Infusion: 10/19/21 17:29 Dose: 0 mls/hr Documented by: [id number] Admin: 10/19/21 16:59 Dose: 100 mls/hr Documented by: [id number] Infusion: 10/19/21 09:10 Dose: 0 mls/hr Documented by: [id number] Admin: 10/19/21 08:40 Dose: 100 mls/hr Documented by: [id number] Infusion: 10/19/21 00:37 Dose: 0 mls/hr Documented by: [id number] Admin: 10/19/21 00:04 Dose: 100 mls/hr Documented by: [id number] Infusion: 10/18/21 17:43 Dose: 0 mls/hr Documented by: [id number] Admin: 10/18/21 17:00 Dose: 100 mls/hr Documented by: [id number] Insulin Aspart (Insulin Aspart Per Unit) 0 units SC DAILY@0730 [facility]; Protocol Stop: 11/09/21 03:59 Last Admin: 10/23/21 09:28 Dose: Not Given Documented by: [id number] Admin: 10/22/21 08:40 Dose: Not Given Documented by: [id number] Admin: 10/21/21 08:49 Dose: Not Given Documented by: [id number] Cosigned by: [id number] Admin: 10/20/21 08:40 Dose: 1 units Documented by: [id number] Cosigned by: [id number] Admin: 10/19/21 08:58 Dose: 8 units Documented by: [id number] Cosigned by: [id number] Admin: 10/18/21 08:24 Dose: 6 units Documented by: [id number] Cosigned by: [id number] Admin: 10/17/21 10:34 Dose: 1 units Documented by: [id number] Cosigned by: [id number] Admin: 10/16/21 08:21 Dose: 2 units Documented by: [id number] Cosigned by: [id number] Admin: 10/15/21 08:55 Dose: Not Given Documented by: [id number] Cosigned by: [id number] Admin: 10/14/21 10:35 Dose: 5 units Documented by: [id number] Cosigned by: [id number] Insulin Aspart (Insulin Aspart Per Unit) 0 units SC 1130,1630,2100 [facility]; Protocol Stop: 11/12/21 11:29 Last Admin: 10/23/21 17:38 Dose: Not Given Documented by: [id number] Cosigned by: [id number] Admin: 10/23/21 13:16 Dose: Not Given Documented by: [id number] Cosigned by: [id number] Admin: 10/22/21 21:44 Dose: Not Given Documented by: [id number] Admin: 10/22/21 17:36 Dose: Not Given Documented by: [id number] Cosigned by: [id number] Admin: 10/22/21 12:25 Dose: Not Given Documented by: [id number] Admin: 10/21/21 20:42 Dose: Not Given Documented by: [id number] Admin: 10/21/21 17:30 Dose: Not Given Documented by: [id number] Cosigned by: [id number] Admin: 10/21/21 12:25 Dose: Not Given Documented by: [id number] Cosigned by: [id number] Admin: 10/20/21 21:31 Dose: Not Given Documented by: [id number] Cosigned by: [id number] Admin: 10/20/21 18:11 Dose: Not Given Documented by: [id number] Cosigned by: [id number] Admin: 10/20/21 12:14 Dose: Not Given Documented by: [id number] Cosigned by: [id number] Admin: 10/19/21 21:06 Dose: Not Given Documented by: [id number] Admin: 10/19/21 18:01 Dose: 1 units Documented by: [id number] Cosigned by: [id number] Admin: 10/19/21 13:59 Dose: Not Given Documented by: [id number] Admin: 10/18/21 20:28 Dose: Not Given Documented by: [id number] Admin: 10/18/21 17:34 Dose: Not Given Documented by: [id number] Cosigned by: [id number] Admin: 10/18/21 12:15 Dose: Not Given Documented by: [id number] Cosigned by: [id number] Admin: 10/17/21 21:57 Dose: Not Given Documented by: [id number] Admin: 10/17/21 17:10 Dose: 2 units Documented by: [id number] Cosigned by: [id number] Admin: 10/17/21 12:34 Dose: 6 units Documented by: [id number] Cosigned by: [id number] Admin: 10/16/21 21:17 Dose: Not Given Documented by: [id number] Admin: 10/16/21 17:37 Dose: 2 units Documented by: [id number] Cosigned by: [id number] Admin: 10/16/21 12:38 Dose: Not Given Documented by: [id number] Admin: 10/15/21 21:22 Dose: Not Given Documented by: [id number] Admin: 10/15/21 17:32 Dose: 1 units Documented by: [id number] Cosigned by: [id number] Admin: 10/15/21 12:29 Dose: Not Given Documented by: [id number] Admin: 10/14/21 21:10 Dose: Not Given Documented by: [id number] Admin: 10/14/21 17:14 Dose: Not Given Documented by: [id number] Admin: 10/14/21 13:55 Dose: 7 units Documented by: [id number] Cosigned by: [id number] Admin: 10/13/21 20:42 Dose: 1 units Documented by: [id number] Cosigned by: [id number] Admin: 10/13/21 17:11 Dose: Not Given Documented by: [id number] Admin: 10/13/21 12:58 Dose: 1 units Documented by: [id number] Cosigned by: [id number] Lidocaine (Lidocaine 5% 1 Patch) 1 patch TD QAM [facility] Stop: 11/16/21 10:14 Last Admin: 10/23/21 09:31 Dose: Not Given Documented by: [id number] Admin: 10/22/21 09:42 Dose: Not Given Documented by: [id number] Admin: 10/21/21 08:53 Dose: Not Given Documented by: [id number] Admin: 10/20/21 09:41 Dose: Not Given Documented by: [id number] Admin: 10/19/21 08:40 Dose: 1 patch Documented by: [id number] Admin: 10/18/21 08:24 Dose: 1 patch Documented by: [id number] Admin: 10/17/21 12:30 Dose: 1 patch Documented by: [id number] Lisinopril (Lisinopril 20 Mg Tab) 20 mg PO BID [facility] Stop: 11/13/21 08:59 Last Admin: 10/23/21 09:31 Dose: Not Given Documented by: [id number] Admin: 10/22/21 21:46 Dose: 20 mg Documented by: [id number] Admin: 10/22/21 09:42 Dose: Not Given Documented by: [id number] Admin: 10/21/21 21:20 Dose: Not Given Documented by: [id number] Admin: 10/21/21 08:53 Dose: Not Given Documented by: [id number] Admin: 10/20/21 20:55 Dose: 20 mg Documented by: [id number] Admin: 10/20/21 08:09 Dose: Not Given Documented by: [id number] Admin: 10/19/21 21:03 Dose: 20 mg Documented by: [id number] Admin: 10/19/21 08:41 Dose: 20 mg Documented by: [id number] Admin: 10/18/21 20:52 Dose: 20 mg Documented by: [id number] Admin: 10/18/21 08:22 Dose: 20 mg Documented by: [id number] Admin: 10/17/21 22:21 Dose: 20 mg Documented by: [id number] Admin: 10/16/21 08:19 Dose: Not Given Documented by: [id number] Admin: 10/15/21 21:26 Dose: 20 mg Documented by: [id number] Admin: 10/15/21 08:51 Dose: 20 mg Documented by: [id number] Admin: 10/14/21 21:13 Dose: 20 mg Documented by: [id number] Admin: 10/14/21 10:51 Dose: 20 mg Documented by: [id number] Melatonin (Melatonin 3 Mg Tab) 6 mg PO HS PRN PRN Reason: Sleep Stop: 11/13/21 18:09 Last Admin: 10/20/21 20:56 Dose: 6 mg Documented by: [id number] Admin: 10/19/21 21:16 Dose: 6 mg Documented by: [id number] Admin: 10/18/21 22:40 Dose: 6 mg Documented by: [id number] Miscellaneous (Carbohydrates For Hypoglycemia ) 15 - 30 gm PO UD PRN PRN Reason: Hypoglycemia Treatment Stop: 11/09/21 03:59 Last Admin: 10/14/21 17:05 Dose: 15 gm Documented by: [id number] Admin: 10/14/21 16:56 Dose: 15 gm Documented by: [id number] Admin: 10/11/21 16:54 Dose: 15 gm Documented by: [id number] Miscellaneous (Remove Lidoderm Patch) 1 ea N/A DAILY@2100 [facility] Stop: 11/16/21 20:59 Last Admin: 10/22/21 21:53 Dose: Not Given Documented by: [id number] Admin: 10/21/21 21:22 Dose: Not Given Documented by: [id number] Admin: 10/20/21 20:57 Dose: Not Given Documented by: [id number] Admin: 10/19/21 21:04 Dose: 1 ea Documented by: [id number] Admin: 10/18/21 20:55 Dose: 1 ea Documented by: [id number] Admin: 10/17/21 21:57 Dose: 1 ea Documented by: [id number] Montelukast Sodium (Montelukast Sodium 10 Mg Tablet) 10 mg PO HS [facility] Stop: 11/09/21 20:59 Last Admin: 10/22/21 21:45 Dose: 10 mg Documented by: [id number] Admin: 10/21/21 21:20 Dose: Not Given Documented by: [id number] Admin: 10/20/21 20:55 Dose: 10 mg Documented by: [id number] Admin: 10/19/21 21:03 Dose: 10 mg Documented by: [id number] Admin: 10/18/21 20:53 Dose: 10 mg Documented by: [id number] Admin: 10/17/21 21:48 Dose: 10 mg Documented by: [id number] Admin: 10/16/21 21:16 Dose: 10 mg Documented by: [id number] Admin: 10/15/21 21:27 Dose: 10 mg Documented by: [id number] Admin: 10/14/21 21:13 Dose: 10 mg Documented by: [id number] Admin: 10/13/21 20:43 Dose: 10 mg Documented by: [id number] Admin: 10/12/21 20:35 Dose: 10 mg Documented by: [id number] Admin: 10/11/21 20:04 Dose: 10 mg Documented by: [id number] Admin: 10/10/21 20:16 Dose: 10 mg Documented by: [id number] Nystatin (Nystatin Powder 15gm Btl) 1 appln EXT TID PRN PRN Reason: irritation Stop: 11/09/21 01:44 Last Admin: 10/23/21 09:28 Dose: 1 appln Documented by: [id number] Admin: 10/16/21 19:49 Dose: 1 appln Documented by: [id number] Pantoprazole Sodium (Pantoprazole 40 Mg Tab) 40 mg PO DAILY [facility] Stop: 11/09/21 08:59 Last Admin: 10/23/21 09:31 Dose: Not Given Documented by: [id number] Admin: 10/22/21 09:42 Dose: Not Given Documented by: [id number] Admin: 10/21/21 08:53 Dose: Not Given Documented by: [id number] Admin: 10/20/21 09:41 Dose: Not Given Documented by: [id number] Admin: 10/19/21 08:40 Dose: 40 mg Documented by: [id number] Admin: 10/18/21 08:22 Dose: 40 mg Documented by: [id number] Admin: 10/17/21 10:30 Dose: 40 mg Documented by: [id number] Admin: 10/16/21 08:19 Dose: Not Given Documented by: [id number] Admin: 10/15/21 08:51 Dose: 40 mg Documented by: [id number] Admin: 10/14/21 10:19 Dose: 40 mg Documented by: [id number] Admin: 10/13/21 08:12 Dose: 40 mg Documented by: [id number] Admin: 10/12/21 07:57 Dose: 40 mg Documented by: [id number] Admin: 10/11/21 08:15 Dose: 40 mg Documented by: [id number] Admin: 10/10/21 09:07 Dose: 40 mg Documented by: [id number] Polyethylene Glycol (Polyethylene (Miralax) 17 Gm Pack) 17 gm PO DAILY PRN PRN Reason: Constipation Stop: 11/09/21 01:44 Last Admin: 10/14/21 15:31 Dose: 17 gm Documented by: [id number] Polyethylene Glycol (Polyethylene (Miralax) 17 Gm Pack) 17 gm PO DAILY [facility] Stop: 11/17/21 11:14 Last Admin: 10/23/21 09:31 Dose: Not Given Documented by: [id number] Admin: 10/22/21 08:41 Dose: Not Given Documented by: [id number] Admin: 10/21/21 08:54 Dose: Not Given Documented by: [id number] Admin: 10/20/21 09:41 Dose: Not Given Documented by: [id number] Admin: 10/19/21 08:41 Dose: 17 gm Documented by: [id number] Admin: 10/18/21 12:13 Dose: 17 gm Documented by: [id number] Polysaccharide Iron Complex (Iron Polysaccharide Complex 150 Mg Capsule) 150 mg PO DAILY [facility] Stop: 11/09/21 08:59 Last Admin: 10/23/21 09:31 Dose: Not Given Documented by: [id number] Admin: 10/22/21 09:42 Dose: Not Given Documented by: [id number] Admin: 10/21/21 08:53 Dose: Not Given Documented by: [id number] Admin: 10/20/21 09:41 Dose: Not Given Documented by: [id number] Admin: 10/19/21 08:41 Dose: 150 mg Documented by: [id number] Admin: 10/18/21 08:23 Dose: 150 mg Documented by: [id number] Admin: 10/17/21 10:30 Dose: 150 mg Documented by: [id number] Admin: 10/16/21 08:19 Dose: Not Given Documented by: [id number] Admin: 10/15/21 08:51 Dose: 150 mg Documented by: [id number] Admin: 10/14/21 10:17 Dose: 150 mg Documented by: [id number] Admin: 10/13/21 08:12 Dose: 150 mg Documented by: [id number] Admin: 10/12/21 07:57 Dose: 150 mg Documented by: [id number] Admin: 10/11/21 08:17 Dose: 150 mg Documented by: [id number] Admin: 10/10/21 09:07 Dose: 150 mg Documented by: [id number] Pyridoxine HCl (Pyridoxine Hcl 50 Mg Tab) 50 mg PO QAM JOVI Stop: 11/14/21 08:59 Last Admin: 10/23/21 09:32 Dose: Not Given Documented by: [id number] Admin: 10/22/21 09:42 Dose: Not Given Documented by: [id number] Admin: 10/21/21 08:54 Dose: Not Given Documented by: [id number] Admin: 10/20/21 09:42 Dose: Not Given Documented by: [id number] Admin: 10/19/21 08:40 Dose: 50 mg Documented by: [id number] Admin: 10/18/21 08:22 Dose: 50 mg Documented by: [id number] Admin: 10/17/21 10:29 Dose: 50 mg Documented by: [id number] Admin: 10/16/21 08:19 Dose: Not Given Documented by: [id number] Admin: 10/15/21 08:51 Dose: 50 mg Documented by: [id number] Senna/Docusate Sodium (Docusate Sodium/Senna 50/8.6mg Tab) 1 tab PO QAM JOVI Stop: 11/14/21 08:59 Last Admin: 10/23/21 09:31 Dose: Not Given Documented by: [id number] Admin: 10/22/21 08:41 Dose: Not Given Documented by: [id number] Admin: 10/21/21 08:53 Dose: Not Given Documented by: [id number] Admin: 10/20/21 09:41 Dose: Not Given Documented by: [id number] Admin: 10/19/21 08:41 Dose: 1 tab Documented by: [id number] Admin: 10/18/21 08:22 Dose: 1 tab Documented by: [id number] Admin: 10/17/21 10:27 Dose: 1 tab Documented by: [id number] Admin: 10/16/21 08:18 Dose: Not Given Documented by: [id number] Admin: 10/15/21 08:52 Dose: 1 tab Documented by: [id number] Tramadol HCl (Tramadol Hcl 50 Mg Tablet) 50 mg PO Q8H PRN PRN Reason: Pain Stop: 11/10/21 15:29 Last Admin: 10/15/21 09:00 Dose: 50 mg Documented by: [id number] Admin: 10/12/21 23:52 Dose: 50 mg Documented by: [id number] Admin: 10/12/21 00:31 Dose: 50 mg Documented by: [id number] Admin: 10/11/21 16:28 Dose: 50 mg Documented by: [id number] Discontinued Medications Acetaminophen (Acetaminophen 325 Mg Tab) 650 mg PO Q4H PRN PRN Reason: Pain or Fever Stop: 11/09/21 01:44 Last Admin: 10/17/21 06:20 Dose: 650 mg Documented by: [id number] Admin: 10/16/21 19:30 Dose: 650 mg Documented by: [id number] Admin: 10/16/21 04:08 Dose: 650 mg Documented by: [id number] Admin: 10/13/21 19:33 Dose: 650 mg Documented by: [id number] Admin: 10/12/21 11:24 Dose: 650 mg Documented by: [id number] Admin: 10/11/21 19:50 Dose: 650 mg Documented by: [id number] Admin: 10/10/21 20:38 Dose: 650 mg Documented by: [id number] Admin: 10/10/21 13:14 Dose: 650 mg Documented by: [id number] Admin: 10/10/21 05:24 Dose: 650 mg Documented by: [id number] Albuterol (Albut/Ipratrop 3mg/0.5mg Neb 3 Ml Vial) 3 ml NEB NOW STA; Protocol Stop: 10/09/21 23:05 Last Admin: 10/09/21 23:41 Dose: 3 ml Documented by: [id number] Amlodipine Besylate (Amlodipine Besylate 5 Mg Tab) 2.5 mg PO NOW ONE Stop: 10/10/21 14:49 Last Admin: 10/10/21 16:02 Dose: 2.5 mg Documented by: [id number] Bisacodyl (Bisacodyl 5 Mg Tabec) 5 mg PO NOW ONE Stop: 10/18/21 12:46 Last Admin: 10/18/21 13:35 Dose: 5 mg Documented by: [id number] Diphenhydramine HCl (Diphenhydramine Capsule 25 Mg Cap) 50 mg PO NOW ONE Stop: 10/17/21 15:19 Last Admin: 10/17/21 16:03 Dose: 50 mg Documented by: [id number] Enoxaparin Sodium (Enoxaparin Inj 40 Mg/0.4 Ml Syr) 40 mg SQ QA JOVI Stop: 11/09/21 08:59 Last Admin: 10/10/21 11:05 Dose: 40 mg Documented by: [id number] Furosemide (Furosemide Inj 20 Mg/2 Ml Vial) 20 mg IV ONE ONE Stop: 10/09/21 21:56 Last Admin: 10/09/21 23:41 Dose: 20 mg Documented by: [id number] Furosemide (Furosemide 40 Mg/4 Ml Vial) Confirm Administered Dose 40 mg IV .STK- MED ONE Stop: 10/09/21 23:02 Last Admin: 10/09/21 23:41 Dose: Not Given Documented by: [id number] Heparin Sodium (Porcine) (Heparin Sod (Porcine) 1000 Unit/Ml) 4,000 units IV NOW ONE Stop: 10/10/21 16:46 Last Admin: 10/10/21 17:02 Dose: 4,000 units Documented by: [id number] Cosigned by: [id number] Hydralazine HCl (Hydralazine Hcl 20 Mg/Ml Vial) 10 mg IV NOW STA Stop: 10/15/21 19:17 Last Admin: 10/15/21 21:21 Dose: 10 mg Documented by: [id number] Ceftriaxone Sodium (Rocephin) 2,000 mg in 70 mls @ 140 mls/hr IV NOW STA Stop: 10/09/21 22:23 Last Infusion: 10/10/21 01:35 Dose: 0 mls/hr Documented by: [id number] Admin: 10/09/21 23:41 Dose: 140 mls/hr Documented by: [id number] Heparin Sodium/Dextrose (Heparin Sodium/Dextrose) 25,000 units in 500 mls @ 21 mls/hr IV .[id number] [facility]; Protocol Stop: 10/11/21 21:00 Last Titration: 10/11/21 21:20 Dose: 0 units/hr, 0 mls/hr Documented by: [id number] Cosigned by: [id number] Admin: 10/11/21 15:12 Dose: 1,050 units/hr, 21 mls/hr Documented by: [id number] Cosigned by: [id number] Titration: 10/11/21 15:12 Dose: 900 units/hr, 18 mls/hr Documented by: [id number] Cosigned by: [id number] Titration: 10/11/21 07:50 Dose: 900 units/hr, 18 mls/hr Documented by: [id number] Cosigned by: [id number] Titration: 10/11/21 00:16 Dose: 850 units/hr, 17 mls/hr Documented by: [id number] Cosigned by: [id number] Admin: 10/10/21 17:46 Dose: 850 units/hr, 17 mls/hr Documented by: [id number] Cosigned by: [id number] Heparin Sodium (Porcine) 3,000 (units/ Syringe) 3 mls @ 10 mls/min IV ONE ONE Stop: 10/11/21 15:11 Last Admin: 10/11/21 15:15 Dose: 10 mls/min Documented by: [id number] Cosigned by: [id number] Sodium Chloride (Nss 1000ml) 1,000 mls @ 80 mls/hr IV .[id number] JOVI Stop: 10/15/21 09:14 Last Infusion: 10/15/21 21:30 Dose: 0 mls/hr Documented by: [id number] Admin: 10/14/21 23:57 Dose: 80 mls/hr Documented by: [id number] Infusion: 10/14/21 22:30 Dose: 80 mls/hr Documented by: [id number] Admin: 10/14/21 10:00 Dose: 80 mls/hr Documented by: [id number] Ceftriaxone Sodium 2,000 mg/ (Dextrose) 70 mls @ 100 mls/hr IV DAILY JOVI; Protocol Stop: 10/20/21 15:59 Last Infusion: 10/16/21 09:15 Dose: 0 mls/hr Documented by: [id number] Admin: 10/16/21 08:27 Dose: 100 mls/hr Documented by: [id number] Infusion: 10/15/21 17:39 Dose: 0 mls/hr Documented by: [id number] Admin: 10/15/21 16:57 Dose: 100 mls/hr Documented by: [id number] Cefepime HCl 2,000 mg/ Syringe 20 mls @ 5 mls/min IV Q24H JOVI; Protocol Stop: 10/21/21 12:59 Last Admin: 10/17/21 12:31 Dose: 5 mls/min Documented by: [id number] Admin: 10/16/21 14:26 Dose: 5 mls/min Documented by: [id number] Sodium Chloride (Nss 1000ml) 1,000 mls @ 80 mls/hr IV .[id number] JOVI Stop: 10/17/21 06:14 Last Infusion: 10/17/21 06:38 Dose: 0 mls/hr Documented by: [id number] Admin: 10/16/21 17:46 Dose: 80 mls/hr Documented by: [id number] Sodium Chloride (Nss) 500 mls @ 80 mls/hr IV .[id number] JOVI Stop: 10/17/21 21:44 Last Infusion: 10/17/21 22:25 Dose: 0 mls/hr Documented by: [id number] Admin: 10/17/21 16:03 Dose: 80 mls/hr Documented by: [id number] Daptomycin 425 mg/ Syringe 8.5 mls @ 4.25 mls/min IV Q48H JOVI; Protocol Stop: 10/27/21 15:59 Last Admin: 10/17/21 17:10 Dose: 4.25 mls/min Documented by: [id number] Sodium Chloride (Nss 1000ml) 1,000 mls @ 80 mls/hr IV .[id number] JOVI Stop: 10/23/21 15:44 Last Infusion: 10/23/21 17:52 Dose: 0 mls/hr Documented by: [id number] Infusion: 10/23/21 14:31 Dose: 80 mls/hr Documented by: [id number] Admin: 10/23/21 05:33 Dose: 80 mls/hr Documented by: [id number] Infusion: 10/23/21 04:53 Dose: 80 mls/hr Documented by: [id number] Infusion: 10/23/21 01:50 Dose: 80 mls/hr Documented by: [id number] Infusion: 10/23/21 01:20 Dose: 0 mls/hr Documented by: [id number] Infusion: 10/22/21 22:04 Dose: 80 mls/hr Documented by: [id number] Infusion: 10/22/21 21:24 Dose: 0 mls/hr Documented by: [id number] Admin: 10/22/21 15:13 Dose: 80 mls/hr Documented by: [id number] Insulin Aspart (Insulin Aspart Per Unit) 0 units SC [facility]; Protocol Stop: 11/09/21 03:59 Last Admin: 10/13/21 08:17 Dose: 3 units Documented by: [id number] Cosigned by: [id number] Admin: 10/12/21 21:02 Dose: Not Given Documented by: [id number] Cosigned by: [id number] Admin: 10/12/21 16:43 Dose: Not Given Documented by: [id number] Admin: 10/12/21 12:27 Dose: 12 units Documented by: [id number] Cosigned by: [id number] Admin: 10/12/21 08:04 Dose: 1 units Documented by: [id number] Cosigned by: [id number] Admin: 10/11/21 20:39 Dose: Not Given Documented by: [id number] Admin: 10/11/21 17:42 Dose: Not Given Documented by: [id number] Cosigned by: [id number] Admin: 10/11/21 12:44 Dose: 7 units Documented by: [id number] Cosigned by: [id number] Admin: 10/11/21 09:10 Dose: 7 units Documented by: [id number] Cosigned by: [id number] Admin: 10/10/21 20:44 Dose: 2 units Documented by: [id number] Cosigned by: [id number] Admin: 10/10/21 17:45 Dose: 4 units Documented by: [id number] Cosigned by: [id number] Admin: 10/10/21 13:12 Dose: 3 units Documented by: [id number] Cosigned by: [id number] Admin: 10/10/21 09:04 Dose: 7 units Documented by: [id number] Cosigned by: [id number] Admin: 10/10/21 05:29 Dose: 2 units Documented by: [id number] Cosigned by: [id number] Insulin Glargine (Insulin Glargine Solostar 100 Units/Ml 3 Ml Pen) 25 units SC NOW ONE Stop: 10/10/21 09:01 Last Admin: 10/10/21 09:05 Dose: 25 units Documented by: [id number] Cosigned by: [id number] Insulin Glargine (Insulin Glargine Solostar 100 Units/Ml 3 Ml Pen) 0 units SC QA JOVI; Protocol Stop: 11/10/21 08:59 Last Admin: 10/11/21 09:06 Dose: 15 units Documented by: [id number] Cosigned by: [id number] Insulin Glargine (Insulin Glargine Solostar 100 Units/Ml 3 Ml Pen) 10 units SC QAM JOVI; Protocol Stop: 11/11/21 08:59 Last Admin: 10/12/21 07:58 Dose: 10 units Documented by: [id number] Cosigned by: [id number] Insulin Glargine (Insulin Glargine Solostar 100 Units/Ml 3 Ml Pen) 12 units SC QAM JOVI; Protocol Stop: 11/11/21 08:59 Last Admin: 10/13/21 08:17 Dose: 12 units Documented by: [id number] Cosigned by: [id number] Insulin Glargine (Insulin Glargine Solostar 100 Units/Ml 3 Ml Pen) 15 units SC QAM JOVI; Protocol Stop: 11/11/21 08:59 Last Admin: 10/16/21 08:20 Dose: 15 units Documented by: [id number] Cosigned by: [id number] Admin: 10/15/21 08:53 Dose: 15 units Documented by: [id number] Cosigned by: [id number] Admin: 10/14/21 10:21 Dose: 15 units Documented by: [id number] Cosigned by: [id number] Insulin Glargine (Insulin Glargine Solostar 100 Units/Ml 3 Ml Pen) 18 units SC QAM JOVI; Protocol Stop: 11/11/21 08:59 Last Admin: 10/21/21 08:46 Dose: 18 units Documented by: [id number] Cosigned by: [id number] Admin: 10/20/21 08:36 Dose: 18 units Documented by: [id number] Cosigned by: [id number] Admin: 10/19/21 08:57 Dose: 18 units Documented by: [id number] Cosigned by: [id number] Admin: 10/18/21 08:23 Dose: 18 units Documented by: [id number] Cosigned by: [id number] Admin: 10/17/21 10:33 Dose: 18 units Documented by: [id number] Cosigned by: [id number] Insulin Glargine (Insulin Glargine Solostar 100 Units/Ml 3 Ml Pen) 12 units SC QAM JOVI; Protocol Stop: 11/21/21 08:59 Last Admin: 10/23/21 09:17 Dose: 12 units Documented by: [id number] Cosigned by: [id number] Admin: 10/22/21 09:37 Dose: 12 units Documented by: [id number] Cosigned by: [id number] Methylprednisolone (Methylprednisolone 125 Mg/2 Ml Vial) 60 mg IV NOW STA Stop: 10/09/21 23:43 Last Admin: 10/10/21 01:34 Dose: 60 mg Documented by: [id number] Miscellaneous (Stop Order: Heparin) 1 ea N/A TODAY@2100 ONE Stop: 10/11/21 21:01 Last Admin: 10/11/21 21:18 Dose: 1 ea Documented by: [id number] Multivitamins/Minerals (Calcium 600mg + Vit D 400 Iu Tab) 1 tab PO DAILY JOVI Stop: 11/09/21 08:59 Last Admin: 10/13/21 08:12 Dose: 1 tab Documented by: [id number] Admin: 10/12/21 07:57 Dose: 1 tab Documented by: [id number] Admin: 10/11/21 08:17 Dose: 1 tab Documented by: [id number] Admin: 10/10/21 09:08 Dose: 1 tab Documented by: [id number] Olanzapine (Olanzapine 10 Mg/2.1 Ml Sdv) 5 mg IM NOW STA Stop: 10/13/21 06:19 Last Admin: 10/13/21 06:22 Dose: 5 mg Documented by: [id number] Olanzapine (Olanzapine 10 Mg/2.1 Ml Sdv) 5 mg IM Q8H PRN PRN Reason: Agitation Stop: 11/12/21 23:14 Last Admin: 10/13/21 23:53 Dose: 5 mg Documented by: [id number] Ondansetron HCl (Ondansetron Inj 2 Mg/Ml 2 Ml Vial) Confirm Administered Dose 4 mg .ROUTE .STK-MED ONE Stop: 10/10/21 04:50 Last Admin: 10/10/21 04:52 Dose: 4 mg Documented by: [id number] Quetiapine Fumarate (Quetiapine Fumarate 25 Mg Tablet) 50 mg PO HS JOVI Stop: 11/09/21 20:59 Last Admin: 10/14/21 21:12 Dose: 50 mg Documented by: [id number] Admin: 10/13/21 20:44 Dose: 50 mg Documented by: [id number] Admin: 10/12/21 20:35 Dose: 50 mg Documented by: [id number] Admin: 10/11/21 20:04 Dose: 50 mg Documented by: [id number] Admin: 10/10/21 20:16 Dose: 50 mg Documented by: [id number] Quetiapine Fumarate (Quetiapine Fumarate 25 Mg Tablet) 12.5 mg PO ONE ONE Stop: 10/13/21 17:25 Last Admin: 10/13/21 18:33 Dose: 12.5 mg Documented by: [id number] Quetiapine Fumarate (Quetiapine Fumarate 25 Mg Tablet) 12.5 mg PO HS PRN PRN Reason: Agitation Stop: 11/13/21 20:59 Last Admin: 10/14/21 21:10 Dose: 12.5 mg Documented by: [id number] Quetiapine Fumarate (Quetiapine Fumarate 25 Mg Tablet) 75 mg PO HS JOVI Stop: 11/14/21 20:59 Last Admin: 10/15/21 21:25 Dose: 75 mg Documented by: [id number] Quetiapine Fumarate (Quetiapine Fumarate 25 Mg Tablet) 50 mg PO HS [facility] Stop: 11/15/21 20:59 Last Admin: 10/20/21 20:56 Dose: 50 mg Documented by: [id number] Admin: 10/19/21 21:04 Dose: 50 mg Documented by: [id number] Admin: 10/18/21 20:52 Dose: 50 mg Documented by: [id number] Admin: 10/17/21 21:49 Dose: 50 mg Documented by: [id number] Admin: 10/16/21 21:16 Dose: 50 mg Documented by: [id number] Tramadol HCl (Tramadol Hcl 50 Mg Tablet) 50 mg PO Q8H PRN PRN Reason: pain Stop: 11/09/21 01:44 Last Admin: 10/10/21 15:59 Dose: 50 mg Documented by: [id number] Vitamin D (Cholecalciferol 5,000 Units 125 Mcg Tab) 5,000 units PO DAILY JOVI Stop: 11/09/21 08:59 Last Admin: 10/13/21 08:12 Dose: 5,000 units Documented by: [id number] Admin: 10/12/21 07:57 Dose: 5,000 units Documented by: [id number] Admin: 10/11/21 08:16 Dose: 5,000 units Documented by: [id number] Admin: 10/10/21 09:07 Dose: 5,000 units Documented by: [id number] Description This is a 21 electrode EEG with a single channel dedicated to limited EKG. The electrodes were placed in accordance with the International 10-20 system. Interpretation The predominant background activity consists of an irregular 6 Hz activity, of up to 50 mV in amplitude,seen symmetrically distributed over the posterior head regions bilaterally spreading anteriorly. This activity does not attenuate with alerting procedures. Photic stimulation was performed and elicited no change in the background activity and no abnormal responses were seen. Hyperventilation was not performed. A minimal amount of muscle and movement artifact activity contaminated the recording and did not hinder interpretation to any significant degree. Throughout the recording, was the presence of high amplitude sharp waves of a generalized or mostly generalized fashion occurring as a single discharge followed by some suppression/lower amplitude for a 1-2 seconds. The discharges occurred every 2-3 seconds, waxing and waning in amplitude and consistency. There were myoclonic jerks occurring regularly throughout the recording in the arms nd head. The patient was not responsive to alerting procedures. 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 No focal abnormalities were seen. Clinical Correlation I called Lilly Robertson and recommended an anticonvulsant to be initiated for the patient [facility] EEG Procedure Codes Indication for Procedure (1) Acute encephalopathy: (2) Myoclonic epilepsy: Neurology Neurology: [id number] EEG include record awake & drowsy
[2021-10-23] MEDS: MONTELUKAST SODIUM 10 MG TABLET PO SCH (20:55)
[2021-10-23] MEDS: ATORVASTATIN 10 MG TAB PO SCH (20:55)
--- NOTE | 2021-10-23 20:56 | Hospitalist Progress Note ---
Date of Service October 23, 2021 Assessment & Plan (1) Acute encephalopathy: Plan: UNCHANGED - is more interactive today in regards to physical movement but is non-communicative; started having some twitching movements today and obtained an EEG suggesting status epilepticus -- Did bridge the conversation with her POA that if not response this could be a new baseline mentation. Her POA does not think the patient would want to live like that but states she would of course discuss this with the patient's family but would likely not want to pursue artificial feedings/etc. MULTIFACTORIAL -- Stroke/delirium/mood disorder/ insomnia/hypercalcemia/ underlying dementia/UTI/Seizures Admitted with headache, found to have MRI brain with numerous b/l strokes in the posterior and anterior circulations (of note prior MRI Jul 2021 admitted for CHF and vertigo following URI, noted white matter hyperintense foci favoring extensive small vessel disease and several old lacunar infarcts noted at that time along with several hypointense foci on gradient echo sequence suggesting trace old blood products) ECHO WITHOUT source of thrombus. Could look at aorta for plaque but defer for now. * --> This suggests embolic etiology. * Prior review of chart with elevations in homocysteine and MMA * (did have B12 def at that time) -->placed on B6/folate as well as her usual B12 * Repeat CT Head evening 10/14 for fall -->Expected evolutionary changes of left occipital predominant infarcts. Punctate right frontoparietal infarct seen on MRI is not seen on today's exam.No evidence of hemorrhagic conversion. Due to high likelihood for embolic phenomenon she was empirically anticoagulated with heparin drip followed byEliquis 2.5mg BID(given will be 86 next month, Cr 1.7) - due to no oral intake converted to Lovenox Continue ASA 81mg daily (when able to take pills) Appreciate neurology consult and discussed with Dr. Markham today and evaluated at bedside; PT, OT, speech --> patient with medicare and can go to [facility] when medically stable - but not there yet (possibly unable to go there) Sundowning/dementia/delirium/mood disorder/insomnia * possible acute akathisia/restlessness from getting Seroquel + olanzapine x 2 in nights previous which was instructed to be held and since discontinued. If needed ONLY 2.5mg IM but attempting to avoid. * Sundowning --> Seroquel 50mg + Melatonin PRN (will hold for now given lethargy) * Psych on board and continues to follow -- appreciate continued recommendations/assistance greatly * Possibly poor sleep contributing? if this is more delirium associated with non-CVA etiologies * If agitated, can consider 2.5mg IM Olanzepine but would AVOID IF AT ALL POSSIBLE - has been more sedated an not agitated over past couple days UTI * Growing Pseudomonas and Enterococcus - Continue Ampicillin and Cefepime - continue until the Headache * --> Suspect musculoskeletal component * --> Tylenol 1g Q8H prn. Lidocaine patch/heat * --> Per discussion with psych (consulted 10/16 for assistance with medication management), can given 50mg benadryl which was administered but slight confusion/pleasant though but would avoid further dosing * Avoid further tramadol/anticholintergics causing worsening sundowning/agitation * --> If able to communicate that headache worsens, consider repeating CT again, poppy given falls while in the hospital earlier in the week; temporal arteritis NOT suspected Tx of hypercalcemia * Hypercalcemia on admit (suspect possibly due to some level of dehydration), checked Vit D, elevated. Stopped home VIt D/calcium supplementation. Repeat Ca wnl (2) Seizure disorder: Plan: - EEG - Throughout the recording, was the presence of high amplitude sharp waves of a generalized or mostly generalized fashion occurring as a single discharge followed by some suppression/lower amplitude for a 1-2 seconds. The discharges occurred every 2-3 seconds, waxing and waning in amplitude and consistency. There were myoclonic jerks occurring regularly throughout the recording in the arms nd head. 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 No focal abnormalities were seen. - Keppra 1000 mg IV x 1 now then 500 mg IV BID starting tomorrow - Patient is protecting her airway currently - she was a conditional code on admission but should be discussed with her POA for any changes (3) Acute embolic stroke: Plan: - Neuro consulted (Discussed with Dr. 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 Increase Eliquis vs R/O other causes of encephalopathy? -- Given inability to take orals current doing therapeutic Lovenox (4) (HFpEF) heart failure with preserved ejection fraction: Plan: - Hx Pulm HTN on 2L NC continuous but had been on RA --> back to 96% on RA -- Hypoxia when sleeping and very likely with underlying sleep apnea; did VBG given her sleepiness on only mildly elevated CO2 so would not explain mentation - No decompensation - Lasix on hold for now (5) Hypertension: Plan: - Continue Norvasc 5 mg daily; Lasix 20 mg daily; Lisinopril 20 mg BID (hold while unable to take orals) (6) CKD (chronic kidney disease), stage III: Plan: - Baseline Cr 1.4 to 1.6 - Continue to routinely monitor - at baseline currently (7) Asthma: Plan: - No exacerbation at this time; Albuterol PRN (8) Hyperlipidemia: Plan: - Cont Lipitor 10 mg daily. (9) Type 2 diabetes mellitus: Plan: - HbA1C 6.6% - Hold home orals; appreciate pharmacy management (10) Chronic respiratory failure with hypoxia and hypercapnia: Plan: - Hx pulm HTN - Stable O2 sats in room air -- suspect some degree of sleep apnea/snoring observed --> previously noted needing 2L NC continuously in July 2021 admission. Of note also had HUMPHREY and received venofer x 2 (negative fecal occult) during that admission. (11) Nausea: Plan: - Anti-emetics PRN - KUB with radiolucency and reported concern possible free air 10/[address] which did not indicate free air No nausea reported today, tolerating diet without issue Continue to monitor (12) DVT prophylaxis: Plan: - Eliquis 2.5mg BID given going to be 86 next month when taking orals; currently using Lovenox Plan: - From [facility] living - Psych on consult - Cefepime/Ampicillin for UTI - Seizure management - Uncertain of mentation and if this will clear; not stable for transfer to [facility] at this time -- Discussed with LOURDES Price today; Bridged the topic of possible consideration that this is her possible baseline mentation. Dee does not think she would want to pursue any aggressive measures but would like to speak with her family -- Dee (LOURDES) would like Ms. Saucedo's other Niece (Sarika Evans) [phone] to be able to talk with patient if she is able to speak Admission and Anticipated Discharge Date Admission Date: October 11, 2021 Subjective Patient was able to take some meds last night surprisingly. Not interactive t zara but is moving her extremities. Noted some twitching today and an EEG was performed showing seizure activity. Review of Systems Review of Systems: Unobtainable due to cognitive status Physical Exam Physical Exam: PHYSICAL EXAM General Appearance: NAD she is moving her arms/legs and will move but will not communicate HEENT: Head is normocephalic/atraumatic Neck: Supple; Trachea midline; Neg JVD Heart: RRR with murmur Lungs: CTA in all lung dominique bilaterally but diminished; Respirations unlabored; Neg accessory muscle use Abdomen: Soft, non-tender (no grimacing), non-distended; Positive BS x 4 quadrants Extremities: Neg cyanosis or edema Psychiatric: Noncommunicative Skin: Normal Color Results & Data Results & Data ([facility]) Vital Signs (Past 12 Hours) Vital Signs Temp Pulse Resp BP Pulse Ox 10/23/21 14:14 36.6 C 74 16 118/60 93 PG Care Time/CCT Total # of Minutes Spent Total Time Spent with Patient: Total time spent is greater than 50% in coordination of care (as documented) at patient's floor/unit and/or counseling patient: Coding Level of Care Code 71074 Subseq Hosp Care Lvl 3 Diagnoses Acute encephalopathy G93.40 Acute embolic stroke I63.9 (HFpEF) heart failure with preserved ejection fraction I50.30 Hypertension I10 CKD (chronic kidney disease), stage III N18.30 Asthma J45.909 Hyperlipidemia E78.5 Type 2 diabetes mellitus E11.9 Chronic respiratory failure with hypoxia and hypercapnia J96.11; J96.12 Nausea R11.0 DVT prophylaxis Z29.9 Seizure disorder G40.909
[2021-10-24] MEDS: CEFEPIME 2,000 MG in SYRINGE 0 ML IV SCH ×2 (00:11→13:10)
[2021-10-24] MEDS: AMPICILLIN 1,000 MG in SODIUM CHLOR 0.9% AD-VAN 50 ML IV SCH ×3 (00:15→16:33)
--- NOTE | 2021-10-24 08:27 | Neurology Progress Note ---
Date of Service October 24, 2021 Assessment & Plan (1) Acute encephalopathy: (2) Myoclonic epilepsy: Plan: Patient had multiple acute embolic type strokes around October 09, in multiple vascular distributions, the largest was in the left occipital head region which explains her right homonymous hemianopsia. She had a left cerebellar stroke which could explain her balance and the multiple bilateral strokes could explain other symptoms including confusion. A recent CT scan of the head reveals a new left cerebellar stroke. MRI did show a punctate stroke on that side but this might be an actual new stroke compared to previous. The patient had a form of nonepileptic status epilepticus with generalized, intermittent myoclonic jerking. see EEG report from October 23. She was loaded with 1 gram of levetiracetam last night and is not jerking this morning. She is likely "postictal" and this may take a couple of days to resolve. I believe valproic acid is a better medication for her seizure-type than levetiracetam, and I recommend a switch. Recommendations new 1. Discontinue levetiracetam 2. initiate IV Depakote 500 milligrams, followed by 250 milligrams IV q.6 hours. 3. Check trough Depakote level is each morning for the next 3 mornings as we are trying to titrate this up to a solid level 4. consider repeating MRI of the brain, if not improving. 5. Continue apixaban 2.5 milligrams twice daily and 81 milligram aspirin tablet daily. Overall, I spent a total of 35 minutes on this case including review of records, direct evaluation the patient bedside, and discussion of the case with the patient and RN at bedside, and Lilly Robertson PA-C, including differential diagnosis and treatment options. Admission and Anticipated Discharge Date Admission Date: October 11, 2021 Subjective nursing reports that she was able to cooperate some last evening. This morning she looks restless but is not having the myoclonic jerks. Blood pressure is 150/90 with pulse of 100. She is afebrile. Results & Data ([facility]) Vital Signs (Past 12 Hours) Vital Signs Temp Pulse Resp BP BP BP Pulse Ox 10/24/21 08:10 36.5 C 101 H 15 150/98 H 93 10/24/21 06:30 78 18 167/84 H 94 10/24/21 00:32 66 16 161/78 H 94 10/23/21 22:43 188/66 H 10/23/21 22:40 36.9 C 77 18 201/82 H 96 Exam (Neuro) Physical Exam: She will open her eyes some to voice but not track. She attempts to makes words and sounds but I hear none. She will not follow commands. She withdraws all 4 limbs when trying to manipulate. She will grimace with some deep pain. Strength seems symmetrical in the limbs. I see no myoclonic jerks this morning. PG Care Time/CCT Total # of Minutes Spent Total Time Spent with Patient: Total time spent is greater than 50% in coordination of care (as documented) at patient's floor/unit and/or counseling patient: Coding Level of Care Code 80545 Subseq Hosp Care Lvl 3 Diagnoses Acute encephalopathy G93.40 Myoclonic epilepsy G40.409 Time Spent (min) 35
[2021-10-24] MEDS ORDERED: VALPROATE SOD 500 MG in DEXTROSE 5% 50 ML IV ONE (08:45)
[2021-10-24] MEDS ORDERED: INSULIN GLARGINE SOLOSTAR 100 UNITS/ML 3 ML PEN SC SCH (09:00)
[2021-10-24] MEDS ORDERED: levETIRAcetam 500 MG in 0.9 % SODIUM CHLORIDE 100 ML IV SCH (09:00)
[2021-10-24] MEDS: DOCUSATE SODIUM/SENNA 50/8.6MG TAB PO SCH (09:07)
[2021-10-24] MEDS: INSULIN GLARGINE SOLOSTAR 100 UNITS/ML 3 ML PEN SC SCH (09:07)
[2021-10-24] MEDS: ASPIRIN 81 MG ECTAB PO SCH (09:07)
[2021-10-24] MEDS: DICLOFENAC SOD 1% GEL 100 GM TUBE EXT SCH ×3 (09:07→20:17)
[2021-10-24] MEDS: FLUTICASONE/VILANTEROL 100/25MCG 14 PUFFS/INHALER INH SCH (09:07)
[2021-10-24] MEDS: FOLIC ACID 1 MG TAB PO SCH (09:07)
[2021-10-24] MEDS: LIDOCAINE 5% 1 PATCH TD SCH (09:08)
[2021-10-24] MEDS: lisinopril 20 MG TAB PO SCH ×2 (09:08→20:17)
[2021-10-24] MEDS: POLYETHYLENE (MIRALAX) 17 GM PACK PO SCH (09:08)
[2021-10-24] MEDS: PANTOprazole 40 MG TAB PO SCH (09:08)
[2021-10-24] MEDS: amLODIPine BESYLATE 5 MG TAB PO SCH (09:08)
[2021-10-24] MEDS: IRON POLYSACCHARIDE COMPLEX 150 MG CAPSULE PO SCH (09:08)
[2021-10-24] MEDS: PYRIDOXINE HCL 50 MG TAB PO SCH (09:08)
[2021-10-24] MEDS: INSULIN ASPART PER UNIT SC SCH ×4 (09:09→20:46)
[2021-10-24] MEDS: ENOXAPARIN 100 MG/1ML SYR SQ SCH ×2 (09:14→20:16)
[2021-10-24] MEDS: VALPROATE SOD 250 MG in DEXTROSE 5% 50 ML IV SCH ×2 (14:44→20:19)
[2021-10-24] MEDS: SODIUM CHLORIDE 0.9% 1000ML 1,000 ML IV SCH (17:44)
[2021-10-24] MEDS ORDERED: ONDANSETRON INJ 2 MG/ML 2 ML VIAL IV PRN (19:45)
--- NOTE | 2021-10-24 19:47 | Hospitalist Progress Note ---
Date of Service October 24, 2021 Assessment & Plan (1) Seizure disorder: Plan: - EEG - Throughout the recording, was the presence of high amplitude sharp waves of a generalized or mostly generalized fashion occurring as a single discharge followed by some suppression/lower amplitude for a 1-2 seconds. The discharges occurred every 2-3 seconds, waxing and waning in amplitude and consistency. There were myoclonic jerks occurring regularly throughout the recording in the arms nd head. The patient was not responsive to alerting procedures.In summary, this EEG is markedly abnormal and shows persistent slowing of the background and frequent generalized sharp waves with clinical accompaniment consistent with a type of nonconvulsive status epilepticus. No focal abnormalities were seen. - Keppra 1000 mg IV x 1 but per discussion with Neurology - change to Depakote 500 mg IV loading dose then 250 mg Q6H - question if some element of post-ictal state and will monitor mentation over next 1-2 days -- Depakote level in the AM - Patient is protecting her airway currently Had a long conversation with Dee MOROCHO) on 10/24. Explained the current findings and the possibility this is her new baseline however are seeing how the next couple days go. She states that herself and family suspect given the length of mentation changes that they knew this was likely. Patient has not eaten in a couple days. She has discussed with family who are in agreement they would not want artificial feeds or any aggressive intervention (CPR/Intubation) as they understand there would not be benefit. Discussed we are hydrating with fluids at this time while awaiting to see any clinical response. Dee stated she has had conversations with Deysi in the past who has expressed she would not want to live in a state like this. Discussed patient reported a conditional code status on admission however the POA expresses that she has talked with Deysi in the past about this and would not want this. As patient was confused on admission she thinks that may have contributed. Did discuss conversion to DNR/DNI status and POA and family are in agreement. Dee does agree to see how these next couple days go with the seizure medications and if anything occurs (infecti ons/medication needs) can be addressed but no heroics. She states if it is determined this is the new baseline mentation, she would want FAMILY LAWYER pursued which other family is in agreement with. Dee states that she feels when Deysi was hallucinating she now realizes all the people Deysi was talking to have and feels that Deysi had a sense of knowing this was coming. (2) Acute encephalopathy: Plan: UNCHANGED - is more interactive today in regards to physical movement but is non-communicative; started having some twitching movements on 10/23 and obtained an EEG suggesting nonconvulstive status epilepticus MULTIFACTORIAL -- Stroke/delirium/mood disorder/ insomnia/hypercalcemia/ underlying dementia/UTI/Seizures Admitted with headache, found to have MRI brain with numerous b/l strokes in the posterior and anterior circulations (of note prior MRI Jul 2021 admitted for CHF and vertigo following URI, noted white matter hyperintense foci favoring extensive small vessel disease and several old lacunar infarcts noted at that time along with several hypointense foci on gradient echo sequence suggesting trace old blood products) ECHO WITHOUT source of thrombus. Could look at aorta for plaque but defer for now. * --> This suggests embolic etiology. * Prior review of chart with elevations in homocysteine and MMA * (did have B12 def at that time) -->placed on B6/folate as well as her usual B12 * Repeat CT Head evening 10/14 for fall -->Expected evolutionary changes of left occipital predominant infarcts. Punctate right frontoparietal infarct seen on MRI is not seen on today's exam.No evidence of hemorrhagic conversion. Due to high likelihood for embolic phenomenon she was empirically anticoagulated with heparin drip followed byEliquis 2.5mg BID(given will be 85 next month, Cr 1.7) - due to no oral intake converted to Lovenox Continue ASA 81mg daily (when able to take pills) Appreciate neurology consult and discussed with Dr. Markham today and evaluated at bedside; PT, OT, speech Sundowning/dementia/delirium/mood disorder/insomnia * possible acute akathisia/restlessness from getting Seroquel + olanzapine x 2 in nights previous which was instructed to be held and since discontinued. If needed ONLY 2.5mg IM but attempting to avoid. * Sundowning --> Seroquel 50mg + Melatonin PRN (will hold for now given lethargy) * Psych on board and continues to follow -- appreciate continued recommendations/assistance greatly * Possibly poor sleep contributing? if this is more delirium associated with non-CVA etiologies * If agitated, can consider 2.5mg IM Olanzepine but would AVOID IF AT ALL POSSIBLE - has been more sedated an not agitated over past couple days * Now likely culminating effects of brain insults from CVAs/Seizures UTI * Growing Pseudomonas and Enterococcus - Completed Ampicillin and Cefepime Headache * --> Suspect musculoskeletal component * --> Tylenol 1g Q8H prn. Lidocaine patch/heat * --> Per discussion with psych (consulted 10/16 for assistance with medication management), can given 50mg benadryl which was administered but slight confusion/pleasant though but would avoid further dosing * Avoid further tramadol/anticholintergics causing worsening sundowning/agitation * --> If able to communicate that headache worsens, consider repeating CT again, poppy given falls while in the hospital earlier in the week; temporal arteritis NOT suspected Tx of hypercalcemia * Hypercalcemia on admit (suspect possibly due to some level of dehydration), checked Vit D, elevated. Stopped home VIt D/calcium supplementation. Repeat Ca wnl (3) Acute embolic stroke: Plan: - Neuro consulted (Discussed with Dr. Markham today), MRI/ECHO/A1c/lipid, PT/OT/Speech - Also with homonymous hemianopsia due to recent CVA - should have glass artist F/U post-discharge - [place] to be embolic, Eliquis/ASA at discharge Tx of encephalopathy/UTI as above - possibly component of hypertensive encephalopathy - aim for a MAP of 100 and avoid overcorrection Repeat Head CT due to being more sleepy on 10/21 - no acute hemorrhage; expected evolution changes of several infarcts; 1.6 x 0.7 cm hypodensity within the L cerebellar hemisphere new compared to prior head CT however there was a punctate infarct in the L cerebellum on last MRI - just more pronounced vs new CVA? -- Given inability to take orals current doing therapeutic Lovenox -- Could consider MRI if no improvement - wonder if CT findings are new CVA? (4) (HFpEF) heart failure with preserved ejection fraction: Plan: - Hx Pulm HTN on 2L NC continuous but had been on RA --> back to 96% on RA -- Hypoxia when sleeping and very likely with underlying sleep apnea; did VBG given her sleepiness on only mildly elevated CO2 so would not explain mentation - No decompensation - will monitor with fluids - Lasix on hold for now (5) Hypertension: Plan: - Hold Norvasc 5 mg daily; Lasix 20 mg daily; Lisinopril 20 mg BID while unable to take orals (6) CKD (chronic kidney disease), stage III: Plan: - Baseline Cr 1.4 to 1.6 - Continue to routinely monitor - at baseline currently (7) Asthma: Plan: - No exacerbation at this time; Albuterol PRN (8) Hyperlipidemia: Plan: - Cont Lipitor 10 mg daily. (9) Type 2 diabetes mellitus: Plan: - HbA1C 6.6% - Hold home orals; appreciate pharmacy management (10) Chronic respiratory failure with hypoxia and hypercapnia: Plan: - Hx pulm HTN - Stable O2 sats in room air -- suspect some degree of sleep apnea/snoring observed --> previously noted needing 2L NC continuously in July 2021 admission. Of note also had HUMPHREY and received venofer x 2 (negative fecal occult) during that admission. (11) Nausea: Plan: - Anti-emetics PRN - KUB with radiolucency and reported concern possible free air 10/[address] which did not indicate free air Did have small mouthful of emesis on 10/24 Continue to monitor Plan: - From [facility] - Await effects of anti-convulsant - if no change in mentation then anticipate FAMILY LAWYER conversion -- Discussed with LOURDES Price today and coverasation as above -- Dee MOROCHO) would like Ms. Saucedo's other Niece (Sarika Evans) [phone] to be able to talk with patient if she is able to speak Admission and Anticipated Discharge Date Admission Date: October 11, 2021 Subjective No acute events overnight. Seems a bit restless today and intermittently wiping her face. She is having more frequent bowel movements and will check for c.diff given Abx. She had small mouthful of emesis today. But is maintaining her airway Review of Systems Review of Systems: Unobtainable due to cognitive status Physical Exam Physical Exam: PHYSICAL EXAM General Appearance: NAD she is moving her arms/legs and will move but will not communicate HEENT: Head is normocephalic/atraumatic Neck: Supple; Trachea midline; Neg JVD Heart: RRR with murmur Lungs: CTA in all lung dominique bilaterally but diminished; Respirations unlabored; Neg accessory muscle use Abdomen: Soft, non-tender (no grimacing), non-distended; Positive BS x 4 quadrants Extremities: Neg cyanosis or edema Psychiatric: Noncommunicative Skin: Normal Color Results & Data Results & Data ([facility]) Vital Signs (Past 12 Hours) Vital Signs Temp Pulse Resp BP Pulse Ox 10/24/21 16:10 36.3 C L 72 16 167/63 H 95 10/24/21 08:10 36.5 C 101 H 15 150/98 H 93 PG Care Time/CCT Total # of Minutes Spent Total Time Spent with Patient: Total time spent is greater than 50% in coordination of care (as documented) at patient's floor/unit and/or counseling patient: Coding Level of Care Code 04797 Subseq Hosp Care Lvl 3 Diagnoses Acute encephalopathy G93.40 Seizure disorder G40.909 Acute embolic stroke I63.9 (HFpEF) heart failure with preserved ejection fraction I50.30 Hypertension I10 CKD (chronic kidney disease), stage III N18.30 Asthma J45.909 Hyperlipidemia E78.5 Type 2 diabetes mellitus E11.9 Chronic respiratory failure with hypoxia and hypercapnia J96.11; J96.12 Nausea R11.0
[2021-10-24] MEDS: ATORVASTATIN 10 MG TAB PO SCH (20:17)
[2021-10-24] MEDS: MONTELUKAST SODIUM 10 MG TABLET PO SCH (20:18)
[2021-10-25] MEDS: VALPROATE SOD 250 MG in DEXTROSE 5% 50 ML IV SCH ×4 (02:09→20:34)
[2021-10-25] MEDS: SODIUM CHLORIDE 0.9% 1000ML 1,000 ML IV SCH (06:12)
[2021-10-25 07:21] LABS: Hemoglobin 12.1 g/dL (12.0-16.0); Mean Corpuscular Hemoglobin 29.1 pg (25-34); Mean Corpuscular Hgb Conc 30.3 g/dL (32-36); Mean Corpuscular Volume 96.2 fL (80-100); Mean Platelet Volume 10.2 fL (7.4-10.4); Platelet Count 332 K/uL (130-400); RDW Coefficient of Variation 17.5 % (11.5-14.5); RDW Standard Deviation 61.5 fL (36.4-46.3); Red Blood Count 4.16 M/uL (4.2-5.4); White Blood Count 10.74 K/uL (4.8-10.8)
[2021-10-25] MEDS: hydrALAZINE HCL 20 MG/ML VIAL IV PRN ×2 (07:32→14:52)
[2021-10-25] MEDS: DICLOFENAC SOD 1% GEL 100 GM TUBE EXT SCH ×3 (07:33→20:39)
[2021-10-25] MEDS: DOCUSATE SODIUM/SENNA 50/8.6MG TAB PO SCH (07:33)
[2021-10-25] MEDS: amLODIPine BESYLATE 5 MG TAB PO SCH (07:33)
[2021-10-25] MEDS: ASPIRIN 81 MG ECTAB PO SCH (07:33)
[2021-10-25] MEDS: POLYETHYLENE (MIRALAX) 17 GM PACK PO SCH (07:34)
[2021-10-25] MEDS: lisinopril 20 MG TAB PO SCH ×2 (07:34→20:40)
[2021-10-25] MEDS: PYRIDOXINE HCL 50 MG TAB PO SCH (07:34)
[2021-10-25] MEDS: FOLIC ACID 1 MG TAB PO SCH (07:34)
[2021-10-25] MEDS: FLUTICASONE/VILANTEROL 100/25MCG 14 PUFFS/INHALER INH SCH (07:34)
[2021-10-25] MEDS: IRON POLYSACCHARIDE COMPLEX 150 MG CAPSULE PO SCH (07:34)
[2021-10-25] MEDS: LIDOCAINE 5% 1 PATCH TD SCH (07:34)
[2021-10-25] MEDS: PANTOprazole 40 MG TAB PO SCH (07:34)
[2021-10-25] MEDS: ENOXAPARIN 100 MG/1ML SYR SQ SCH ×2 (07:35→20:38)
[2021-10-25 07:43] LABS: Albumin Globulin Ratio 1.1 (0.9-2); Albumin Level 3.6 gm/dl (3.4-5.0); Bilirubin,Total 0.4 mg/dl (0.2-1.0); Calcium 9.4 mg/dl (8.5-10.1); Creatinine Clr Calc Pharmacy 34.1 ml/min; Est GFR (African American) 41.3 ml/min; Est GFR (Non-African American) 35.6 ml/min; Globulin 3.2 gm/dl (2.5-4.0); Potassium 3.9 mmol/L (3.5-5.1); Total Protein 6.8 gm/dl (6.0-8.3)
[2021-10-25] MEDS: INSULIN ASPART PER UNIT SC SCH ×4 (08:53→20:58)
[2021-10-25] MEDS: INSULIN GLARGINE SOLOSTAR 100 UNITS/ML 3 ML PEN SC SCH (09:17)
[2021-10-25] MEDS ORDERED: MoRPHine SULFATE 4 MG/ML 1 ML CARP\\VIAL IV STA (09:34)
[2021-10-25] MEDS ORDERED: VALPROATE SOD 500 MG in DEXTROSE 5% 50 ML IV STA (09:40)
--- NOTE | 2021-10-25 09:48 | Neurology Progress Note ---
Date of Service October 25, 2021 Assessment & Plan (1) Acute encephalopathy: (2) Myoclonic epilepsy: (3) Acute embolic stroke: Plan: Patient had multiple acute embolic type strokes around October 09, in multiple vascular distributions, the largest was in the left occipital head region which explains her right homonymous hemianopsia. She had a left cerebellar stroke which could explain her balance and the multiple bilateral strokes could explain other symptoms including confusion. A recent CT scan of the head reveals a new left cerebellar stroke. MRI did show a punctate stroke on that side but this might be an actual new stroke compared to previous. The patient had a form of nonepileptic status epilepticus with generalized, intermittent myoclonic jerking. see EEG report from October 23. Currently, she still has occasional twitches or jerks of the limbs but they are not nearly as prominent as October 23. She seems to be a little "abrasive mixer" neurologically. Depakote level was 48 this morning. Valproic acid is the drug of choice for her type of seizure activity/myoclonus Recommendations new 1. give an extra 500 milligrams IV Depakote, 1 time now 2. continue maintenance dose of IV Depakote 250 milligrams IV q.6 hours. 3. Check trough Depakote level is each morning for the next 3 mornings as we are trying to titrate this up to a solid level, Closer to 100. 4. by October 27, if she is not significantly improving, consider repeating EEG and MRI of the brain. might even consider an LP also. 5. Continue apixaban 2.5 milligrams twice daily and 81 milligram aspirin tablet daily. Overall, I spent a total of 35 minutes on this case including review of records, direct evaluation the patient bedside, and discussion of the case with the patient and RN at bedside, and Alla Marin PA-C, including differential diagnosis and treatment options. Admission and Anticipated Discharge Date Admission Date: October 11, 2021 Subjective Patient still has occasional twitches and jerks according to nursing staff. She is not responding or following commands. She is afebrile and blood pressure is 137/91. CBC was unremarkable. BUN and creatinine are mildly elevated but Chem profile was not otherwise. Depakote level was 48. Results & Data ([facility]) Vital Signs (Past 12 Hours) Vital Signs Temp Pulse Resp BP BP Pulse Ox Pulse Ox 10/25/21 09:31 137/91 10/25/21 07:23 37.0 C 90 16 165/101 H 95 10/25/21 00:39 95 10/24/21 23:00 37.0 C 83 18 160/67 H 95 Exam (Neuro) Physical Exam: patient has her eyes open and will try to track a little bit but is not following one-step commands. She looks like she is trying to say something but no sounds are coming out. She is looking and turning towards the left more than the right. Limb movement is symmetrical as before. PG Care Time/CCT Total # of Minutes Spent Total Time Spent with Patient: Total time spent is greater than 50% in coordination of care (as documented) at patient's floor/unit and/or counseling patient: Coding Level of Care Code 63656 Subseq Hosp Care Lvl 3 Diagnoses Acute encephalopathy G93.40 Myoclonic epilepsy G40.409 Acute embolic stroke I63.9 Time Spent (min) 35
--- NOTE | 2021-10-25 13:45 | Hospitalist Progress Note ---
Date of Service October 25, 2021 Assessment & Plan (1) Seizure disorder: Plan: - EEG obtained 10/23 --> markedly abnormal and shows persistent slowing of the background and frequent generalized sharp waves with clinical accompaniment consistent with a type of nonconvulsive status epilepticus. No focal abnormalities were seen. - Keppra 1000 mg IV x 1 but per discussion with Neurology - changed to Depakote 500 mg IV loading dose then 250 mg Q6H. - Current mentation ? post-ictal state and will monitor response to meds over next 1-2 days. Depakote level this AM subtherapeutic at 48 - Another dose of IV Depakote 500mg x1 now and then continue 250mg q6h - Repeat Depakote level in AM, goal 75-100 with closer to 100 being preferable - Patient is protecting her airway currently - If mentation not improved by Wednesday, may need to consider repeat EEG and MRI if POA/family agreeable versus conversion to RIVET HAMMER MACHINE OPERATOR - Per previous provider discussion with POA, will convert patient to hospice/RIVET HAMMER MACHINE OPERATOR if pt does not show significant improvement by Wednesday - Of note, pt somewhat uncomfortable per RN this AM, medicated with a one time dose of IV Morphine 2mg x1 with improvement. Pt seemed more comfortable after that. (2) Acute encephalopathy: Plan: MULTIFACTORIAL -- Stroke/delirium/mood disorder/insomnia/hy percalcemia/underlying dementia/UTI/Seizures (3) Acute embolic stroke: Plan: - Neuro consulted MRI/ECHO/A1c/lipid all performed, PT/OT/Speech therapy following - Also with homonymous hemianopsia due to recent CVA - should have opht halmologist F/U post-discharge - [place] to be embolic, Eliquis/ASA at discharge -- although currently not able to take any meds by mouth - Permissive HTN d/t embolic CVA - Repeat Head CT due to being more sleepy on 10/21 - no acute hemorrhage; expected evolution changes of several infarcts; 1.6 x 0.7 cm hypodensity within the L cerebellar hemisphere new compared to prior head CT however there was a p unctate infarct in the L cerebellum on last MRI - just more pronounced vs new CVA - Currently not taking meds PO due to current LOC, receiving Lovenox, but missing antiplatelet agent (4) (HFpEF) heart failure with preserved ejection fraction: Plan: - Hx Pulm HTN on 2L NC continuous but had been on RA --> back to 96% on RA - Hypoxia when sleeping and very likely with underlying sleep apnea; did VBG given her sleepiness on only mildly elevated CO2 so would not explain mentation - No decompensation - will monitor with fluids - Lasix on hold for now (5) Hypertension: Plan: - Hold Norvasc 5 mg daily; Lasix 20 mg daily; Lisinopril 20 mg BID while unable to take orals (6) CKD (chronic kidney disease), stage III: Plan: - Baseline Cr 1.4 to 1.6 - Continue to routinely monitor - at baseline currently (7) Asthma: Plan: - No exacerbation at this time; Albuterol PRN (8) Hyperlipidemia: Plan: - Cont Lipitor 10 mg daily. (9) Type 2 diabetes mellitus: Plan: - HbA1C 6.6% - Hold home orals; appreciate pharmacy management (10) Chronic respiratory failure with hypoxia and hypercapnia: Plan: - Hx pulm HTN - Stable O2 sats in room air - suspect some degree of sleep apnea/snoring observed - of note, previously noted w/ requiring 2L NC continuously in July 2021 admission (11) Nausea: Plan: - Anti-emetics PRN (12) Hypernatremia: Plan: - No PO intake at this time - D/C NSS and change to D5W @ 80 ml/hr - Repeat BMP in AM Plan: - From [facility] - Await effects of anti-convulsant - if no change in mentation then anticipate RIVET HAMMER MACHINE OPERATOR conversion. Updated pt's Dee FREED. Dee (POA) would like Ms. Saucedo's other Niece (Sarika Evans) [phone] to be able to talk with patient if she is able to speak (which at this time she cannot). Discussed plan with Dr. Markham on rounds today Admission and Anticipated Discharge Date Admission Date: October 11, 2021 Subjective Patient still has occasional twitches and jerks according to nursing staff. She is not responding or following commands. RN alerted me this morning that pt seemed really uncomfortable and she was requesting something IV for pain. She was not able to give pt any of her oral medications due to LOC. Review of Systems Review of Systems: Unobtainable due to cognitive status Physical Exam Physical Exam: GENERAL: 85 yo elderly obese WF. Observing twitching, jerking movements on my exam. Nonverbal. LUNGS: Clear to auscultation bilaterally. No W/R/R. CARDIOVASCULAR: Regular rate and rhythm. No M/G/R. No JVD. ABDOMEN: Soft, nondistended, normal BS x 4 quad. : Kaye in place EXTREMITIES: No edema. Non-tender. Peripheral pulses +2/4. NEUROLOGIC: Eyes open but not alert/oriented. Does not follow commands. Lateralizing to the left. SKIN: Warm, dry, intact. No rashes or lesions. Results & Data Results & Data ([facility]) Vital Signs (Past 12 Hours) Vital Signs Temp Pulse Resp BP BP Pulse Ox 10/25/21 09:31 137/91 10/25/21 07:23 37.0 C 90 16 165/101 H 95 Laboratory Results 10/25/21 06:38 10/25/21 06:38 valproic acid=48 PG Care Time/CCT Total # of Minutes Spent Total Time Spent with Patient: Total time spent is greater than 50% in coordination of care (as documented) at patient's floor/unit and/or counseling patient: Coding Level of Care Code 14215 Subseq Hosp Care Lvl 3 Diagnoses Seizure disorder G40.909 Acute encephalopathy G93.40 Acute embolic stroke I63.9 (HFpEF) heart failure with preserved ejection fraction I50.30 Hypertension I10 CKD (chronic kidney disease), stage III N18.30 Asthma J45.909 Hyperlipidemia E78.5 Type 2 diabetes mellitus E11.9 Chronic respiratory failure with hypoxia and hypercapnia J96.11; J96.12 Nausea R11.0 Hypernatremia E87.0
[2021-10-25] MEDS: DEXTROSE 5% 1,000 ML IV SCH (17:53)
[2021-10-25] MEDS: ATORVASTATIN 10 MG TAB PO SCH (20:39)
[2021-10-25] MEDS: MONTELUKAST SODIUM 10 MG TABLET PO SCH (20:40)
[2021-10-26] MEDS: VALPROATE SOD 250 MG in DEXTROSE 5% 50 ML IV SCH ×4 (03:04→20:30)
[2021-10-26] MEDS: DEXTROSE 5% 1,000 ML IV SCH ×2 (05:20→19:09)
[2021-10-26 07:57] LABS: Creatinine Clr Calc Pharmacy 24.8 ml/min; Est GFR (African American) 28.1 ml/min; Est GFR (Non-African American) 24.3 ml/min; Potassium 3.7 mmol/L (3.5-5.1)
[2021-10-26 08:18] LABS: Hematocrit (blood only) 38.3 % (37-47); Hemoglobin 11.5 g/dL (12.0-16.0); Mean Corpuscular Volume 96.5 fL (80-100); Mean Platelet Volume 11.2 fL (7.4-10.4); Platelet Count 139 K/uL (130-400); RDW Coefficient of Variation 17.7 % (11.5-14.5); RDW Standard Deviation 62.6 fL (36.4-46.3); Red Blood Count 3.97 M/uL (4.2-5.4); White Blood Count 7.02 K/uL (4.8-10.8)
[2021-10-26] MEDS: amLODIPine BESYLATE 5 MG TAB PO SCH (08:27)
[2021-10-26] MEDS: ASPIRIN 81 MG ECTAB PO SCH (08:27)
[2021-10-26] MEDS: FOLIC ACID 1 MG TAB PO SCH (08:29)
[2021-10-26] MEDS: DOCUSATE SODIUM/SENNA 50/8.6MG TAB PO SCH (08:29)
[2021-10-26] MEDS: FLUTICASONE/VILANTEROL 100/25MCG 14 PUFFS/INHALER INH SCH (08:29)
[2021-10-26] MEDS: POLYETHYLENE (MIRALAX) 17 GM PACK PO SCH (08:30)
[2021-10-26] MEDS: lisinopril 20 MG TAB PO SCH ×2 (08:30→20:27)
[2021-10-26] MEDS: IRON POLYSACCHARIDE COMPLEX 150 MG CAPSULE PO SCH (08:30)
[2021-10-26] MEDS: PYRIDOXINE HCL 50 MG TAB PO SCH (08:30)
[2021-10-26] MEDS: PANTOprazole 40 MG TAB PO SCH (08:30)
[2021-10-26] MEDS: DICLOFENAC SOD 1% GEL 100 GM TUBE EXT SCH ×3 (08:51→20:30)
[2021-10-26] MEDS: INSULIN GLARGINE SOLOSTAR 100 UNITS/ML 3 ML PEN SC SCH (08:51)
[2021-10-26] MEDS: LIDOCAINE 5% 1 PATCH TD SCH (08:51)
[2021-10-26] MEDS: ENOXAPARIN 100 MG/1ML SYR SQ SCH ×2 (08:52→20:29)
[2021-10-26] MEDS: INSULIN ASPART PER UNIT SC SCH ×4 (08:55→21:08)
[2021-10-26] MEDS ORDERED: CYANOCOBALAMIN 1000 MCG/ML VIAL IM SCH (09:00)
--- NOTE | 2021-10-26 10:43 | Pharmacy Report ---
Pharmacy Glycemic Short Note 2 - Date of Service October 26, 2021 - Glycemic Short BSG Results (Last 24 hours): 10/25/21 10/25/21 10/25/21 12:21 17:24 20:46 Glucose POC Glucose 130 H 149 H 148 H 10/26/21 10/26/21 06:57 08:21 Glucose 162 H POC Glucose 158 H OUTPATIENT ANTIDIABETIC REGIMEN: * Amaryl 1 mg daily * Metformin 500 mg BID * HbA1c: 6.6% (10/10/21) ASSESSMENT: 10/26/21: * BSGs have been reasonably well-controlled on current regimen past several days. * IVF switched from NS to D5 yesterday d/t hypernatremia. * Fasting BSG slightly increased this morning. If this trend continues, may need to increase Lantus while dextrose is infusing. * Pt has not been eating. 10/23 * Patient received 12 units of basal insulin yesterday and no bolus at all. * Checked with RN, she has not been having any oral food intake at all. * Fasting BSG yesterday was 92 mg/dl and the basal dose was reduced yesterday. Today fasting is 94 mg/dl. Continued same basal dose of 12 units today. The basal dose kept her blood sugars steady between 91 mg/dl to 93 mg/dl all day yesterday. * Reduced basal dose to 10 units for tomorrow 10/21 * Patient's BSGs remain stable. * No changes indicated at this time. 10/19 * Blood sugars at goal, pre-lunch sugar trending low, loosen CR at breakfast to prevent hypoglycemia prior to lunch * Fasting 154mg/dl, continue Lantus dose * Ampicillin + Cefepime for UTI 10/17 * BSGs yesterday were controlled at [phone] mg/dL. Received 15 units of Lantus and 4 units of Novolog (TDD = 19 units) * Fasting BSG above goal for several days now, 159 mg/dL this AM. Will increase Lantus slightly this AM. * Postprandials well controlled. No change in Novolog necessary. 10/15 * BSGs yesterday of 167, 207, 59, and 142 mg/dL * Received 27 units of insulin (15 of which was basal) * Fasting BSG of 140 mg/dL this morning - will continue increased dose of Lantus 15 units daily * Given low BSG at dinner, will loosen lunch, dinner, HS Novolog parameters PLAN FOR INPATIENT GLYCEMIC CONTROL: * Hold outpatient oral diabetes medications * Basal insulin - * Lantus 12 units SC QAM * Bolus insulin * NovoLog per scale ACHS or Q6hrs while NPO * Goal Range: Low 110 mg/dL - High 140 mg/dL at breakfast, 120-150 mg/dL with lunch, dinner, and HS * Correction Factor: 20 mg/dL/unit with breakfast, 35 mg/dL/unit with lunch, dinner, and HS * Nutritional / Prandial insulin per carb ratio of 1 unit per 8 grams CHO consumed, 1 unit per 12 grams CHO consumed with lunch, dinner, HS PLAN FOR DISCHARGE: * HbA1C = 6.6% on 10/10/21 * Goal A1c is less than 8% in this patient given her age and co-morbidities. A1c of 6.6% indicates that she is a well controlled diabetic at home with only oral anti-diabetic meds. * Recommend continue current meds (Metformin 500 mg BID with meals and Amaryl 1 mg daily with a meal) on discharge as long as no contraindications are present.
--- NOTE | 2021-10-26 14:04 | Hospitalist Progress Note ---
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 No focal abnormalities were seen. - Keppra 1000 mg IV x 1 but per discussion with Neurology - changed to Depakote 500 mg IV loading dose then 250 mg Q6H. - Current mentation ? post-ictal state and will monitor response to meds over next 1-2 days. Depakote level this AM subtherapeutic at 48 - Another dose of IV Depakote 500mg x1 given 10/25 and then continued on 250mg q6h - Repeat Depakote level this morning still subtherapeutic at 57, goal 75-100 with closer to 100 being preferable - Patient is protecting her airway currently - If mentation not improved by Wednesday, may need to consider repeat EEG and MRI if POA/family agreeable versus conversion to SOCIAL MEDIA CAMPAIGN MANAGER - Per previous provider discussion with POA, will convert patient to hospice/SOCIAL MEDIA CAMPAIGN MANAGER if pt does not show significant improvement by Wednesday (2) Acute encephalopathy: Plan: MULTIFACTORIAL -- Stroke/delirium/mood disorder/insomnia/hypercalcemia/underl pasquale dementia/UTI/Seizures (3) Acute embolic stroke: Plan: - Neuro consulted MRI/ECHO/A1c/lipid all performed, PT/OT/Speech therapy following - Also with homonymous hemianopsia due to recent CVA - should have clutch specialist F/U post-discharge - [place] to be embolic, Eliquis/ASA at discharge -- although currently not able to take any meds by mouth - Permissive HTN d/t embolic CVA - Repeat Head CT due to being more sleepy on 10/21 - no acute hemorrhage; expected evolution changes of several infarcts; 1.6 x 0.7 cm hypodensity within the L cerebellar hemisphere new compared to prior head CT however there was a punctate infarct in the L cerebellum on last MRI - just more pronounced vs new CVA - Currently not taking meds PO due to current LOC, receiving Lovenox, but missing antiplatelet agent (4) (HFpEF) heart failure with preserved ejection fraction: Plan: - Hx Pulm HTN on 2L NC continuous but had been on RA --> back to 96% on RA - Hypoxia when sleeping and very likely with underlying sleep apnea; did VBG given her sleepiness on only mildly elevated CO2 - No decompensation - will monitor with fluids - Lasix on hold for now (5) Acute kidney injury: Plan: - LUZ and diuretics on hold - Receiving IVF w/ D5W @ 80 ml/hr - Trend renal fxn, baseline as indicated below (6) CKD (chronic kidney disease), stage III: Plan: - Baseline Cr 1.4 to 1.6 (7) Hypertension: Plan: - Hold Norvasc 5 mg daily; Lasix 20 mg daily; Lisinopril 20 mg BID while unable to take orals (8) Asthma: Plan: - No exacerbation at this time; Albuterol PRN (9) Hyperlipidemia: Plan: - Cont Lipitor 10 mg daily. (10) Type 2 diabetes mellitus: Plan: - HbA1C 6.6% - Hold home orals; appreciate pharmacy management (11) Chronic respiratory failure with hypoxia and hypercapnia: Plan: - Hx pulm HTN - Stable O2 sats in room air - suspect some degree of sleep apnea/snoring observed - of note, previously noted w/ requiring 2L NC continuously in July 2021 admission (12) Hypernatremia: Plan: - No PO intake at this time - D/C NSS and change to D5W @ 80 ml/hr - Repeat BMP today noted normalization of Na level Plan: From [facility]. Dispo uncertain at this time. Await effects of anti-convulsant - if no change in mentation then anticipate SOCIAL MEDIA CAMPAIGN MANAGER conversion. Updated pt's ANA LUISAADee. Uncertain what patient's baseline will be. She is having some moments of clarity but then reverting back to nonverbal status. She has had no oral intake in days. Not convinced pt will have a meaningful recovery and suspect an overall poor quality of life. Will continue to update Dee daily. Dee would like Ms. Saucedo's other Niece (Sarika Evans) [phone] to be able to talk with patient if she is able to speak (which at this time she cannot). Admission and Anticipated Discharge Date Admission Date: October 11, 2021 Subjective Patient seen on rounds this morning. She is lying in bed, eyes open, attempts to track. When I stated her name she attempted to say "what." She attempts to follow some commands. No longer with jerking/twitching movements observed. RN notified this afternoon that pt asked "what is this place?" and when she responded with the hospital, the pt asked "why?" but verbalized nothing further. Review of Systems Review of Systems: Unobtainable due to cognitive status Physical Exam Physical Exam: GENERAL: 85 yo elderly obese WF. attempts to verbalize and follow commands. LUNGS: Clear to auscultation bilaterally. No W/R/R. CARDIOVASCULAR: Regular rate and rhythm. No M/G/R. No JVD. ABDOMEN: Soft, nondistended, normal BS x 4 quad. : Kaye in place EXTREMITIES: No edema. Non-tender. Peripheral pulses +2/4. NEUROLOGIC: Eyes open, attempts to track. able to wiggle toes and stick out tongue. SKIN: Warm, dry, intact. No rashes or lesions. Results & Data Results & Data ([facility]) Vital Signs (Past 12 Hours) Vital Signs Temp Pulse Resp BP Pulse Ox 10/26/21 07:17 37.5 C 84 16 115/73 93 Laboratory Results 10/26/21 06:57 10/26/21 06:57 PG Care Time/CCT Total # of Minutes Spent Total Time Spent with Patient: Total time spent is greater than 50% in coordination of care (as documented) at patient's floor/unit and/or counseling patient: Coding Level of Care Code 55165 Subseq Hosp Care Lvl 2 Diagnoses Seizure disorder G40.909 Acute encephalopathy G93.40 Acute embolic stroke I63.9 (HFpEF) heart failure with preserved ejection fraction I50.30 Hypertension I10 CKD (chronic kidney disease), stage III N18.30 Asthma J45.909 Hyperlipidemia E78.5 Type 2 diabetes mellitus E11.9 Chronic respiratory failure with hypoxia and hypercapnia J96.11; J96.12 Hypernatremia E87.0 Acute kidney injury N17.9
[2021-10-26] MEDS: ATORVASTATIN 10 MG TAB PO SCH (20:27)
[2021-10-26] MEDS: MONTELUKAST SODIUM 10 MG TABLET PO SCH (20:28)
[2021-10-27] MEDS: VALPROATE SOD 250 MG in DEXTROSE 5% 50 ML IV SCH ×4 (03:15→19:42)
[2021-10-27 06:23] LABS: Basophils # (auto) 0.02 K/uL (0-0.2); Basophils % (auto) 0.2 %; Eosinophils # (auto) 0.16 K/uL (0-0.5); Eosinophils % (auto) 1.8 %; Hemoglobin 10.6 g/dL (12.0-16.0); Immature Granulocytes # (auto) 0.02 K/uL (0.00-0.02); Immature Granulocytes % (auto) 0.2 %; Lymphocytes # (auto) 1.66 K/uL (1.2-3.4); Lymphocytes % (auto) 18.7 %; Mean Corpuscular Hemoglobin 28.8 pg (25-34); Mean Corpuscular Hgb Conc 30.3 g/dL (32-36); Mean Corpuscular Volume 95.1 fL (80-100); Mean Platelet Volume 10.8 fL (7.4-10.4); Monocytes # (auto) 0.79 K/uL (0.11-0.59); Monocytes % (auto) 8.9 %; Neutrophils # (auto) 6.21 K/uL (1.4-6.5); Neutrophils % (auto) 70.2 %; Platelet Count 249 K/uL (130-400); RDW Coefficient of Variation 17.4 % (11.5-14.5); RDW Standard Deviation 59.7 fL (36.4-46.3); Red Blood Count 3.68 M/uL (4.2-5.4); White Blood Count 8.86 K/uL (4.8-10.8)
[2021-10-27 07:15] LABS: BUN Creatinine Ratio 24.6 (10-20); Calcium 8.7 mg/dl (8.5-10.1); Creatinine Clr Calc Pharmacy 22.4 ml/min; Est GFR (African American) 24.9 ml/min; Est GFR (Non-African American) 21.4 ml/min; Magnesium 2.1 mg/dl (1.7-2.4); Potassium 3.7 mmol/L (3.5-5.1)
[2021-10-27] MEDS: DEXTROSE 5% 1,000 ML IV SCH ×2 (08:04→19:43)
[2021-10-27] MEDS: FOLIC ACID 1 MG TAB PO SCH (08:05)
[2021-10-27] MEDS: ASPIRIN 81 MG ECTAB PO SCH (08:05)
[2021-10-27] MEDS: amLODIPine BESYLATE 5 MG TAB PO SCH (08:05)
[2021-10-27] MEDS: FLUTICASONE/VILANTEROL 100/25MCG 14 PUFFS/INHALER INH SCH (08:05)
[2021-10-27] MEDS: DOCUSATE SODIUM/SENNA 50/8.6MG TAB PO SCH (08:05)
[2021-10-27] MEDS: POLYETHYLENE (MIRALAX) 17 GM PACK PO SCH (08:06)
[2021-10-27] MEDS: lisinopril 20 MG TAB PO SCH (08:06)
[2021-10-27] MEDS: PANTOprazole 40 MG TAB PO SCH (08:06)
[2021-10-27] MEDS: IRON POLYSACCHARIDE COMPLEX 150 MG CAPSULE PO SCH (08:06)
[2021-10-27] MEDS: PYRIDOXINE HCL 50 MG TAB PO SCH (08:06)
[2021-10-27] MEDS: ENOXAPARIN 100 MG/1ML SYR SQ SCH (08:07)
[2021-10-27] MEDS: DICLOFENAC SOD 1% GEL 100 GM TUBE EXT SCH ×3 (08:07→19:42)
[2021-10-27] MEDS: LIDOCAINE 5% 1 PATCH TD SCH (08:08)
[2021-10-27] MEDS: INSULIN GLARGINE SOLOSTAR 100 UNITS/ML 3 ML PEN SC SCH (08:49)
[2021-10-27] MEDS: INSULIN ASPART PER UNIT SC SCH ×3 (08:52→17:37)
[2021-10-27] MEDS ORDERED: hydrALAZINE HCL 20 MG/ML VIAL IV PRN (09:35)
[2021-10-27] MEDS ORDERED: Nursing to Pharmacy Communication SCH (09:45)
--- NOTE | 2021-10-27 10:22 | Neurology Progress Note ---
Date of Service October 27, 2021 Assessment & Plan (1) Acute embolic stroke: (2) Seizure disorder: Plan: Multifocal embolic stroke, multiple vascular territories. There is an acute infarct within the left cerebellum, left occipital lobe, left thalamus, left basal ganglia, and several subcortical infarcts within the right right parietal and right frontal lobes. Patient probably has a right homonymous hemianopsia as well as a thalamic aphasia. She may have bilateral motor deficits as well although this particular issue was difficult to assess in light of her lethargy, aphasia, and inability to follow commands. Cardioembolism seems likely. Patient has also exhibited seizure-like activity and has an abnormal EEG. No evidence of hemorrhagic transformation on several follow-up head CTs. Seems to be improved with Depakote. Patient's seizure-like activity occurs in the context of delirium, probable dementia, and recent stroke. Has been evaluated by psychiatry who had previously wondered about akathisia from previous IM olanzapine in addition to Seroquel with possible paradoxical increase in agitation and restlessness. It looks like she is no longer on neuroleptic medication. Continue with daily low-dose aspirin although going forward, would recommend anticoagulation given multifocal embolic appearance of infarcts. Would also recommend 30-day mobile cardiac outpatient telemetry. Continue with Depakote as ordered, 250 mg IV every 6 hours. May change agent to oral formulation when medically appropriate, may utilize Depakote DR 500 mg every 12 hours in that context. Admission and Anticipated Discharge Date Admission Date: October 11, 2021 Subjective Follow-up for stroke and seizures No further seizure-like activity has been reported. Patient remains somewhat lethargic and inattentive. She is unable to provide any specific information regarding symptoms. Results & Data ([facility]) Vital Signs (Past 12 Hours) Vital Signs Temp Pulse Resp BP Pulse Ox 10/27/21 07:57 36.5 C 72 18 145/80 H 91 10/26/21 22:13 36.8 C 74 18 131/70 93 Laboratory Results WBC 8.86, hemoglobin 10.6, hematocrit 35.0, platelet count 249, sodium 143, potassium 3.7, BUN 51, creatinine 2.07, calcium 8.7, magnesium 2.1, AST 14, ALT 9, valproic acid 67 EEG completed October 23, 2021 revealed generalized discharges with associated myoclonic jerking of the limbs potentially consistent with seizure activity. Exam (Neuro) Physical Exam: The patient is lethargic, inattentive. She appears to have difficulty with expressive and receptive speech. Patient's head and body are tilted to the left. She tends to look to the left. Minimal spontaneous movement of the limbs observed although appears to have slightly better movement for the right arm and leg. No jerking, twitching, or myoclonic movements of the limbs are observed. Muscle tone diffusely normal. Coding Level of Care Code 62640 Subseq Hosp Care Lvl 2 Diagnoses Acute embolic stroke I63.9 Seizure disorder G40.909
--- NOTE | 2021-10-27 14:37 | Hospitalist Progress Note ---
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 No focal abnormalities were seen. - Keppra 1000 mg IV x 1 but per discussion with Neurology - changed to Depakote 500 mg IV loading dose then 250 mg Q6H. - Current mentation ? post-ictal state and will monitor response to meds over next 1-2 days. Depakote level this AM subtherapeutic at 48 - Another dose of IV Depakote 500mg x1 given 10/25 and then continued on 250mg q6h - Repeat Depakote level this morning 67; d/w neuro and they are fine with this level as pt is no longer showing signs of seizure activity - Some improvement in mentation as she is awake and able to follow some simple commands - Protecting airway but not able to swallow so giving her a diet is out of the question, will reconsult ST and make her NPO - All oral meds have been placed on hold - Continue IVF w/ Dextrose for now - Discussed at length with patient's POADee, the change in her mentation. She wants to discuss with family to determine if they want to move in direction of hospice/comfort care or pursue more aggressive life sustaining measures which would include PEG tube placement to maintain nutrition. Will f/u with her tomorrow on her decision. (2) Acute encephalopathy: Plan: MULTIFACTORIAL -- Stroke/delirium/mood disorder/insomnia/hypercalcemia/underlying dementia/UTI/Seizures (3) Acute embolic stroke: Plan: - Neuro consulted MRI/ECHO/A1c/lipid all performed, PT/OT/Speech therapy following - Also with homonymous hemianopsia due to recent CVA - should have wind plant manager F/U post-discharge - [place] to be embolic, Eliquis/ASA at discharge -- although currently not able to take any meds by mouth - Permissive HTN d/t embolic CVA - Repeat Head CT due to being more sleepy on 10/21 - no acute hemorrhage; expected evolution changes of several infarcts; 1.6 x 0.7 cm hypodensity within the L cerebellar hemisphere new compared to prior head CT however there was a punctate infarct in the L cerebellum on last MRI - just more pronounced vs new CVA - Currently not taking meds PO due to current LOC, receiving Lovenox, but missing antiplatelet agent (4) (HFpEF) heart failure with preserved ejection fraction: Plan: - Hx Pulm HTN on 2L NC continuous but had been on RA --> back to 96% on RA - Hypoxia when sleeping and very likely with underlying sleep apnea; did VBG given her sleepiness on only mildly elevated CO2 - No decompensation - will monitor with fluids - Lasix on hold for now (5) Acute kidney injury: Plan: - LUZ and diuretics on hold - Receiving IVF w/ D5W @ 80 ml/hr - Creatinine uptrending, not surprising given lack of oral intake for days (6) CKD (chronic kidney disease), stage III: Plan: - Baseline Cr 1.4 to 1.6 (7) Hypertension: Plan: - Hold Norvasc 5 mg daily; Lasix 20 mg daily; Lisinopril 20 mg BID while unable to take orals (8) Asthma: Plan: - No exacerbation at this time; Albuterol PRN (9) Hyperlipidemia: Plan: - Cont Lipitor 10 mg daily. (10) Type 2 diabetes mellitus: Plan: - HbA1C 6.6% - Hold home orals; appreciate pharmacy management (11) Chronic respiratory failure with hypoxia and hypercapnia: Plan: - Hx pulm HTN - Stable O2 sats in room air - suspect some degree of sleep apnea/snoring observed - of note, previously noted w/ requiring 2L NC continuously in July 2021 admission - only need to utilize O2 prn sat <90% (12) Hypernatremia: Plan: RESOLVED Plan: From [facility]. Dispo uncertain at this time. Updated pt's POA, Dee, this morning 10/27. Uncertain what patient's baseline will be. She is having some moments of clarity but then reverting back to nonverbal status. She has had no oral intake in days. Certainly not able to take in any oral meds or eat by mouth which would necessitate placement of a peg tube. Not convinced pt will have a meaningful recovery and suspect an overall poor quality of life. Will plan to follow up with Dee to discuss plan moving forward tomorrow giving her time to communicate with remaining family members prior to making a decision. Dee would like Ms. Saucedo's other Niece (Sarika Evans) [phone] to be able to talk with patient if she is able to speak. Admission and Anticipated Discharge Date Admission Date: October 11, 2021 Subjective Patient was seen on rounds this morning. Today she is awake but not able to miles balize any complaints. Notified by RN that pt will ask "where am I and what is this place?" She is able to follow some simple commands. RN tried to see if she would swallow this morning as the pt was requesting food and stating she was hungry. RN placed small amount of egg on her tongue but pt unable to swallow. Pt seen at some time as neuro eval. Review of Systems Review of Systems: Unobtainable due to cognitive status Physical Exam Physical Exam: GENERAL: 85 yo elderly obese WF. attempts to verbalize and follows some simple commands. LUNGS: Clear to auscultation bilaterally. No W/R/R. CARDIOVASCULAR: Regular rate and rhythm. No M/G/R. No JVD. ABDOMEN: Soft, nondistended, normal BS x 4 quad. : Kaye in place EXTREMITIES: No edema. Non-tender. Peripheral pulses +2/4. NEUROLOGIC: Eyes open, attempts to track. Able to follow commands, squeezes but unable to lift B/L UE. SKIN: Warm, dry, intact. No rashes or lesions. Results & Data Results & Data ([facility]) Vital Signs (Past 12 Hours) Vital Signs Temp Pulse Resp BP Pulse Ox 10/27/21 07:57 36.5 C 72 18 145/80 H 91 Laboratory Results 10/27/21 05:18 10/27/21 05:18 PG Care Time/CCT Total # of Minutes Spent Total Time Spent with Patient: Total time spent is greater than 50% in coordination of care (as documented) at patient's floor/unit and/or counseling patient: Coding Level of Care Code 94967 Subseq Hosp Care Lvl 2 Diagnoses Seizure disorder G40.909 Acute encephalopathy G93.40 Acute embolic stroke I63.9 (HFpEF) heart failure with preserved ejection fraction I50.30 Acute kidney injury N17.9 CKD (chronic kidney disease), stage III N18.30 Hypertension I10 Asthma J45.909 Hyperlipidemia E78.5 Type 2 diabetes mellitus E11.9 Chronic respiratory failure with hypoxia and hypercapnia J96.11; J96.12 Hypernatremia E87.0
[2021-10-27] MEDS: MONTELUKAST SODIUM 10 MG TABLET PO SCH (19:43)
[2021-10-28] MEDS: INSULIN ASPART PER UNIT SC SCH ×6 (00:16→21:06)
[2021-10-28] MEDS: VALPROATE SOD 250 MG in DEXTROSE 5% 50 ML IV SCH ×3 (02:44→14:28)
[2021-10-28 06:27] LABS: Basophils # (auto) 0.02 K/uL (0-0.2); Basophils % (auto) 0.2 %; Eosinophils # (auto) 0.18 K/uL (0-0.5); Eosinophils % (auto) 1.9 %; Hematocrit (blood only) 35.2 % (37-47); Immature Granulocytes # (auto) 0.02 K/uL (0.00-0.02); Immature Granulocytes % (auto) 0.2 %; Lymphocytes # (auto) 1.63 K/uL (1.2-3.4); Lymphocytes % (auto) 16.9 %; Mean Corpuscular Hgb Conc 31.3 g/dL (32-36); Mean Corpuscular Volume 92.9 fL (80-100); Mean Platelet Volume 10.8 fL (7.4-10.4); Monocytes # (auto) 0.77 K/uL (0.11-0.59); Neutrophils # (auto) 7.03 K/uL (1.4-6.5); Neutrophils % (auto) 72.8 %; Platelet Count 209 K/uL (130-400); RDW Coefficient of Variation 16.8 % (11.5-14.5); RDW Standard Deviation 56.3 fL (36.4-46.3); Red Blood Count 3.79 M/uL (4.2-5.4); White Blood Count 9.65 K/uL (4.8-10.8)
[2021-10-28 06:29] LABS: Calcium 8.7 mg/dl (8.5-10.1); Creatinine Clr Calc Pharmacy 23.7 ml/min; Est GFR (African American) 26.6 ml/min; Est GFR (Non-African American) 22.9 ml/min; Potassium 3.7 mmol/L (3.5-5.1)
[2021-10-28] MEDS: LIDOCAINE 5% 1 PATCH TD SCH (08:34)
[2021-10-28] MEDS: PYRIDOXINE HCL 50 MG TAB PO SCH (08:34)
[2021-10-28] MEDS: POLYETHYLENE (MIRALAX) 17 GM PACK PO SCH (08:34)
[2021-10-28] MEDS: DICLOFENAC SOD 1% GEL 100 GM TUBE EXT SCH ×3 (08:35→21:05)
[2021-10-28] MEDS: INSULIN GLARGINE SOLOSTAR 100 UNITS/ML 3 ML PEN SC SCH (08:36)
[2021-10-28] MEDS: DEXTROSE 5% 1,000 ML IV SCH (08:47)
[2021-10-28] MEDS ORDERED: ENOXAPARIN 100 MG/1ML SYR SQ SCH (09:00)
--- NOTE | 2021-10-28 10:57 | Hospitalist Progress Note ---
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 No focal abnormalities were seen. - Keppra 1000 mg IV x 1 but per discussion with Neurology - changed to Depakote 500 mg IV loading dose then 250 mg Q6H. - Current mentation ? post-ictal state and will monitor response to meds over next 1-2 days. Depakote level this AM subtherapeutic at 48 - Another dose of IV Depakote 500mg x1 given 10/25 and then continued on 250mg q6h - No longer with signs of seizure activity, mentation is clearing, awake/alert, following commands - Transition from IV Depakote to PO Depakote DR 500mg BID - Appreciate assistance by speech therapy, diet ordered (diabetic, pureed) and she is tolerating well - Change IVF to 1/2NSS at 80 ml/hr - PT/OT (2) Acute embolic stroke: Plan: - Neuro consulted MRI/ECHO/A1c/lipid all performed, PT/OT/Speech therapy following - Also with homonymous hemianopsia due to recent CVA - should have city collector F/U post-discharge - Repeat Head CT due to being more sleepy on 10/21 - no acute hemorrhage; expected evolution changes of several infarcts; 1.6 x 0.7 cm hypodensity within the L cerebellar hemisphere new compared to prior head CT however there was a punctate infarct in the L cerebellum on last MRI - ?more pronounced vs new CVA - Change medications back to PO - On antiplatelet agent as well as anticoagulation d/t strong suspicion for embolic cva (3) Acute encephalopathy: Plan: MULTIFACTORIAL -- Stroke/delirium/mood disorder/insomnia/hypercalcemia/underlyi ng dementia/Seizures--> IMPROVING (4) Acute kidney injury: Plan: - LUZ stopped and Lasix on hold - Change IVF to 1/2NSS at 80 ml/hr - Slight improvement in renal function noted today - Will continue to monitor (5) (HFpEF) heart failure with preserved ejection fraction: Plan: - Hx Pulm HTN on 2L NC continuous but had been on RA --> back to 96% on RA - Hypoxia when sleeping and very likely with underlying sleep apnea; did VBG given her sleepiness on only mildly elevated CO2 - No decompensation - will monitor with fluids - Lasix on hold for now (6) CKD (chronic kidney disease), stage III: Plan: - Baseline Cr 1.4 to 1.6 (7) Hypertension: Plan: - Resume Norvasc 5mg daily - Hydralazine 10mg IV q6h prn sbp>170 or dbp>100 (8) Asthma: Plan: - No exacerbation at this time; Albuterol PRN (9) Hyperlipidemia: Plan: - Cont Lipitor 10 mg daily. (10) Type 2 diabetes mellitus: Plan: - HbA1C 6.6% - Hold home orals; appreciate pharmacy management (11) Chronic respiratory failure with hypoxia and hypercapnia: Plan: - Hx pulm HTN - Stable O2 sats in room air - suspect some degree of sleep apnea/snoring observed - of note, previously noted w/ requiring 2L NC continuously in July 2021 admission - only need to utilize O2 prn sat <90% Plan: From [facility]. She is going to require SNF upon discharge. Updated LOURDES Price, on 10/28 regarding change in patient's mentation and overall continued improvement. Explained she is going to require SNF upon discharge in order to provide the appropriate level of care that she will require. Case management is working on discharge planning. Will need to send referrals to other facilities besides [facility] d/t lack of available beds at this time. Dee would like Ms. Saucedo's other Niece (Sarika Evans) [phone] to be able to talk with patient if she is able to speak. Admission and Anticipated Discharge Date Admission Date: October 11, 2021 Subjective Patient was seen on rounds this morning. Today she is more awake and alert. She is able to follow commands. She was seen by speech therapy yesterday, able to follow directions at time of assessment and demonstrated ability to swallow safe ly. Diet has been ordered for her and she is tolerating it well. No other issues or concerns verbalized by RN. Review of Systems Review of Systems: Unobtainable due to cognitive status/confusion Physical Exam Physical Exam: GENERAL: 85 yo elderly pleasantly confused WF. NAD. LUNGS: Clear to auscultation bilaterally. No W/R/R. CARDIOVASCULAR: Regular rate and rhythm. No M/G/R. No JVD. ABDOMEN: Soft, obese, nondistended, normal BS x 4 quad. : Kaye in place EXTREMITIES: No edema. Non-tender. Peripheral pulses +2/4. NEUROLOGIC: Awake, alert, oriented to self only. Able to raise arms, appreciable difference in strength L side stronger than R SKIN: Warm, dry, intact. No rashes or lesions. Large golf ball sized fluctuant mass on dorsum of right wrist. Results & Data Results & Data ([facility]) Vital Signs (Past 12 Hours) Vital Signs Temp Pulse Resp BP BP Pulse Ox 10/28/21 07:21 36.6 C 70 16 154/82 H 97 10/27/21 23:49 36.5 C 75 24 145/73 H 92 Laboratory Results 10/28/21 05:56 10/28/21 05:56 PG Care Time/CCT Total # of Minutes Spent Total Time Spent with Patient: Total time spent is greater than 50% in coordination of care (as documented) at patient's floor/unit and/or counseling patient: Coding Level of Care Code 62024 Subseq Hosp Care Lvl 2 Diagnoses Seizure disorder G40.909 Acute encephalopathy G93.40 Acute embolic stroke I63.9 (HFpEF) heart failure with preserved ejection fraction I50.30 Acute kidney injury N17.9 CKD (chronic kidney disease), stage III N18.30 Hypertension I10 Asthma J45.909 Hyperlipidemia E78.5 Type 2 diabetes mellitus E11.9 Chronic respiratory failure with hypoxia and hypercapnia J96.11; J96.12
[2021-10-28] MEDS: SODIUM CHLORIDE 0.45 % 1,000 ML IV SCH (11:04)
[2021-10-28] MEDS: FLUTICASONE/VILANTEROL 100/25MCG 14 PUFFS/INHALER INH SCH (11:20)
--- NOTE | 2021-10-28 12:51 | Pharmacy Report ---
Pharmacy Glycemic Short Note 2 - Date of Service October 28, 2021 - Glycemic Short BSG Results (Last 24 hours): 10/27/21 10/28/21 10/28/21 17:20 00:11 05:31 Glucose POC Glucose 139 H 136 H 165 H 10/28/21 10/28/21 05:56 12:02 Glucose 158 H POC Glucose 175 H OUTPATIENT ANTIDIABETIC REGIMEN: * Amaryl 1 mg daily * Metformin 500 mg BID * HbA1c: 6.6% (10/10/21) ASSESSMENT: 10/28/21 * Patient's BSGs yesterday were [phone] mg/dL. Today's BSGs are 165-175 mg/dL. * Patient was on D5@80 mLs/hr. This was d/c'ed today. * Patient received 13 units of insulin yesterday (1 unit of bolus and 12 units of basal). * Continue regimen as diet has been resumed. 10/26/21: * BSGs have been reasonably well-controlled on current regimen past several days. * IVF switched from NS to D5 yesterday d/t hypernatremia. * Fasting BSG slightly increased this morning. If this trend continues, may need to increase Lantus while dextrose is infusing. * Pt has not been eating. 10/23 * Patient received 12 units of basal insulin yesterday and no bolus at all. * Checked with RN, she has not been having any oral food intake at all. * Fasting BSG yesterday was 92 mg/dl and the basal dose was reduced yesterday. Today fasting is 94 mg/dl. Continued same basal dose of 12 units today. The basal dose kept her blood sugars steady between 91 mg/dl to 93 mg/dl all day yesterday. * Reduced basal dose to 10 units for tomorrow 10/21 * Patient's BSGs remain stable. * No changes indicated at this time. 10/19 * Blood sugars at goal, pre-lunch sugar trending low, loosen CR at breakfast to prevent hypoglycemia prior to lunch * Fasting 154mg/dl, continue Lantus dose * Ampicillin + Cefepime for UTI 10/17 * BSGs yesterday were controlled at [phone] mg/dL. Received 15 units of Lantus and 4 units of Novolog (TDD = 19 units) * Fasting BSG above goal for several days now, 159 mg/dL this AM. Will increase Lantus slightly this AM. * Postprandials well controlled. No change in Novolog necessary. 10/15 * BSGs yesterday of 167, 207, 59, and 142 mg/dL * Received 27 units of insulin (15 of which was basal) * Fasting BSG of 140 mg/dL this morning - will continue increased dose of Lantus 15 units daily * Given low BSG at dinner, will loosen lunch, dinner, HS Novolog parameters PLAN FOR INPATIENT GLYCEMIC CONTROL: * Hold outpatient oral diabetes medications * Basal insulin - * Lantus 12 units SC QAM * Bolus insulin * NovoLog per scale ACHS or Q6hrs while NPO * Goal Range: Low 110 mg/dL - High 140 mg/dL at breakfast, 120-150 mg/dL with lunch, dinner, and HS * Correction Factor: 20 mg/dL/unit with breakfast, 35 mg/dL/unit with lunch, dinner, and HS * Nutritional / Prandial insulin per carb ratio of 1 unit per 8 grams CHO consumed, 1 unit per 12 grams CHO consumed with lunch, dinner, HS PLAN FOR DISCHARGE: * HbA1C = 6.6% on 10/10/21 * Goal A1c is less than 8% in this patient given her age and co-morbidities. A1c of 6.6% indicates that she is a well controlled diabetic at home with only oral anti-diabetic meds. * Recommend continue current meds (Metformin 500 mg BID with meals and Amaryl 1 mg daily with a meal) on discharge as long as no contraindications are present.
[2021-10-28] MEDS: ATORVASTATIN 10 MG TAB PO SCH (21:05)
[2021-10-28] MEDS: DIVALPROEX DELAY RELEASE 500 MG TAB PO SCH (21:05)
[2021-10-28] MEDS: APIXABAN 2.5 MG TAB PO SCH (21:05)
[2021-10-28] MEDS: MONTELUKAST SODIUM 10 MG TABLET PO SCH (21:05)
[2021-10-29] MEDS: SODIUM CHLORIDE 0.45 % 1,000 ML IV SCH ×2 (01:45→13:54)
[2021-10-29] MEDS: INSULIN GLARGINE SOLOSTAR 100 UNITS/ML 3 ML PEN SC SCH (08:52)
[2021-10-29] MEDS: FLUTICASONE/VILANTEROL 100/25MCG 14 PUFFS/INHALER INH SCH (08:52)
[2021-10-29] MEDS: INSULIN ASPART PER UNIT SC SCH ×4 (08:55→20:47)
[2021-10-29] MEDS: ASPIRIN 81 MG ECTAB PO SCH (09:27)
[2021-10-29] MEDS: PYRIDOXINE HCL 50 MG TAB PO SCH (09:27)
[2021-10-29] MEDS: APIXABAN 2.5 MG TAB PO SCH ×2 (09:27→20:29)
[2021-10-29] MEDS: DIVALPROEX DELAY RELEASE 500 MG TAB PO SCH ×2 (09:27→20:28)
[2021-10-29] MEDS: amLODIPine BESYLATE 5 MG TAB PO SCH (09:27)
[2021-10-29] MEDS: IRON POLYSACCHARIDE COMPLEX 150 MG CAPSULE PO SCH (09:27)
[2021-10-29] MEDS: PANTOprazole 40 MG TAB PO SCH (09:27)
[2021-10-29] MEDS: DICLOFENAC SOD 1% GEL 100 GM TUBE EXT SCH ×3 (09:27→20:27)
[2021-10-29] MEDS: FOLIC ACID 1 MG TAB PO SCH (09:27)
[2021-10-29] MEDS: LIDOCAINE 5% 1 PATCH TD SCH (09:28)
[2021-10-29] MEDS: POLYETHYLENE (MIRALAX) 17 GM PACK PO SCH (09:46)
[2021-10-29] MEDS: DOCUSATE SODIUM/SENNA 50/8.6MG TAB PO SCH (09:46)
[2021-10-29 10:28] LABS: BUN Creatinine Ratio 26.4 (10-20); Calcium 8.4 mg/dl (8.5-10.1); Est GFR (African American) 27.1 ml/min; Est GFR (Non-African American) 23.3 ml/min
--- NOTE | 2021-10-29 11:03 | Hospitalist Progress Note ---
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 No focal abnormalities were seen. - Keppra 1000 mg IV x 1 but per discussion with Neurology - changed to Depakote 500 mg IV loading dose then 250 mg Q6H. - Another dose of IV Depakote 500mg x1 given 10/25 and then continued on 250mg q6h - No longer with signs of seizure activity, mentation is clearing, awake/alert, following commands - Transition from IV Depakote to PO Depakote DR 500mg BID - Appreciate assistance by speech therapy, diet ordered (diabetic, pureed) and she is tolerating well - Changed IVF to 1/2NSS at 80 ml/hr on 10/28 (2) Acute embolic stroke: Plan: - Neuro consulted MRI/ECHO/A1c/lipid all performed, PT/OT/Speech therapy following - Also with homonymous hemianopsia due to recent CVA - should have fashion artist F/U post-discharge - Repeat Head CT due to being more sleepy on 10/21 - no acute hemorrhage; expected evolution changes of several infarcts; 1.6 x 0.7 cm hypodensity within the L cerebellar hemisphere new compared to prior head CT however there was a punctate infarct in the L cerebellum on last MRI - ?more pronounced vs new CVA - Changed medications back to PO on 10/28 - On antiplatelet agent as well as anticoagulation d/t strong suspicion for embolic cva - Continue PT/OT --> will need updated notes from OT to assist in D/C planning (3) Acute encephalopathy: Plan: Metabolic and Multifactoral -- Stroke/delirium w/ underlying dementia/Seizure d/o--> IMPROVING (4) Acute kidney injury: Plan: - LUZ stopped and Lasix on hold - Changed IVF to 1/2NSS at 80 ml/hr - Renal function stable, not far from baseline creatinine of 1.6 - Will continue to monitor (5) (HFpEF) heart failure with preserved ejection fraction: Plan: - Hx Pulm HTN on 2L NC continuous but had been on RA --> back to 96% on RA - Hypoxia when sleeping and very likely with underlying sleep apnea; did VBG given her sleepiness on only mildly elevated CO2 - No decompensation - will monitor with fluids - Lasix on hold for now (6) CKD (chronic kidney disease), stage III: Plan: - Baseline Cr 1.4 to 1.6 (7) Hypertension: Plan: - Continue Norvasc 5mg daily, can uptitrate if added BP control is needed - Hydralazine 10mg IV q6h prn sbp>170 or dbp>100 (8) Asthma: Plan: - No exacerbation at this time; Albuterol PRN (9) Hyperlipidemia: Plan: - Cont Lipitor 10 mg daily. (10) Type 2 diabetes mellitus: Plan: - HbA1C 6.6% - Hold home orals; appreciate pharmacy management (11) Chronic respiratory failure with hypoxia and hypercapnia: Plan: - Hx pulm HTN - Stable O2 sats in room air - suspect some degree of sleep apnea/snoring observed - of note, previously noted w/ requiring 2L NC continuously in July 2021 admission - only need to utilize O2 prn sat <90% (12) Mass of right wrist: Plan: - ?hematoma - Tender - Check xray Plan: From [facility]. She is going to require SNF upon discharge. Updated LOURDES Price, on 10/28 regarding change in patient's mentation and overall continued improvement. Explained she is going to require SNF upon discharge in order to provide the appropriate level of care that she will require. Case man jay is working on discharge planning. Will need to send referrals to other facilities besides [facility] d/t lack of available beds at this time. Dee would like Ms. Saucedo's other Niece (Sarika Evans) [phone] to be able to talk with patient if she is able to speak. Admission and Anticipated Discharge Date Admission Date: October 11, 2021 Subjective Patient was seen on rounds this morning. Continues to be awake, alert, and interactive. Following commands. Oriented to self but confused as to location. Able to accurately name the current president. She denies any complaints. No issues or concerns verbalized by RN. DENTAL TECHNOLOGIST noted pt was having hallucinations in her note from 10/28. OT has not attempted to see patient since 10/24. 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 ?hallucinations Physical Exam Physical Exam: GENERAL: 85 yo elderly pleasantly confused WF. NAD. LUNGS: Clear to auscultation bilaterally. No W/R/R. CARDIOVASCULAR: Regular rate and rhythm. No M/G/R. ABDOMEN: Soft, obese, nondistended, normal BS x 4 quad. : Singh in place EXTREMITIES: No edema. Non-tender. Peripheral pulses +2/4. NEUROLOGIC: Awake, alert, oriented to self only. Able to raise arms, appreciable difference in strength L side stronger than R SKIN: Warm, dry, intact. Scattered ecchymosis, mostly over right arm. Large golf ball sized tender fluctuant mass on dorsum of right wrist. ?hematoma Results & Data Results & Data ([facility]) Vital Signs (Past 12 Hours) Vital Signs Temp Pulse Resp BP Pulse Ox 10/29/21 07:57 36.8 C 76 17 149/75 H 91 Laboratory Results 10/28/21 05:56 10/29/21 07:27 PG Care Time/CCT Total # of Minutes Spent Total Time Spent with Patient: Total time spent is greater than 50% in coordination of care (as documented) at patient's floor/unit and/or counseling patient: Coding Level of Care Code 11055 Subseq Hosp Care Lvl 2 Diagnoses Seizure disorder G40.909 Acute embolic stroke I63.9 Acute encephalopathy G93.40 Acute kidney injury N17.9 (HFpEF) heart failure with preserved ejection fraction I50.30 CKD (chronic kidney disease), stage III N18.30 Hypertension I10 Asthma J45.909 Hyperlipidemia E78.5 Type 2 diabetes mellitus E11.9 Chronic respiratory failure with hypoxia and hypercapnia J96.11; J96.12 Mass of right wrist R22.31
--- NOTE | 2021-10-29 13:11 | XRay Report ---
XR wrist RT 2V CLINICAL HISTORY: mass on dorsum of right wrist TECHNIQUE: 2 views of the right wrist were obtained. Comparison: None available at the time of this dictation. FINDINGS: There is no evidence of an acute fracture. The alignment is anatomic. Joint spaces are well-preserved . A soft tissue mass is seen in the dorsum of the right wrist. IMPRESSION: Soft tissue mass in the dorsal aspect of the wrist without evidence of underlying bony abnormality. ACT 112: Negative or not required by law. Electronically signed by: Moises Gregorio M.D. 10/29/2021 1:10 PM
[2021-10-29] MEDS: ATORVASTATIN 10 MG TAB PO SCH (20:28)
[2021-10-29] MEDS: MONTELUKAST SODIUM 10 MG TABLET PO SCH (20:30)
[2021-10-29] MEDS: ACETAMINOPHEN 500 MG TAB PO PRN (20:38)
[2021-10-30] MEDS: SODIUM CHLORIDE 0.45 % 1,000 ML IV SCH ×3 (00:22→23:41)
[2021-10-30 06:57] LABS: BUN Creatinine Ratio 27.3 (10-20); Calcium 8.1 mg/dl (8.5-10.1); Creatinine Clr Calc Pharmacy 23.4 ml/min; Est GFR (African American) 26.2 ml/min; Est GFR (Non-African American) 22.6 ml/min
[2021-10-30] MEDS: INSULIN ASPART PER UNIT SC SCH ×4 (08:57→20:55)
[2021-10-30] MEDS ORDERED: INSULIN GLARGINE SOLOSTAR 100 UNITS/ML 3 ML PEN SC SCH (09:00)
[2021-10-30] MEDS: DICLOFENAC SOD 1% GEL 100 GM TUBE EXT SCH ×3 (09:04→21:09)
[2021-10-30] MEDS: LIDOCAINE 5% 1 PATCH TD SCH (09:05)
[2021-10-30] MEDS: amLODIPine BESYLATE 5 MG TAB PO SCH (09:05)
[2021-10-30] MEDS: PYRIDOXINE HCL 50 MG TAB PO SCH (09:05)
[2021-10-30] MEDS: DIVALPROEX DELAY RELEASE 500 MG TAB PO SCH ×2 (09:05→21:10)
[2021-10-30] MEDS: ASPIRIN 81 MG ECTAB PO SCH (09:05)
[2021-10-30] MEDS: IRON POLYSACCHARIDE COMPLEX 150 MG CAPSULE PO SCH (09:05)
[2021-10-30] MEDS: FOLIC ACID 1 MG TAB PO SCH (09:05)
[2021-10-30] MEDS: APIXABAN 2.5 MG TAB PO SCH ×2 (09:05→21:10)
[2021-10-30] MEDS: DOCUSATE SODIUM/SENNA 50/8.6MG TAB PO SCH (09:06)
[2021-10-30] MEDS: PANTOprazole 40 MG TAB PO SCH (09:06)
[2021-10-30] MEDS: FLUTICASONE/VILANTEROL 100/25MCG 14 PUFFS/INHALER INH SCH (09:06)
--- NOTE | 2021-10-30 09:11 | Pharmacy Report ---
Pharmacy Glycemic Short Note 2 - Date of Service October 30, 2021 - Glycemic Short BSG Results (Last 24 hours): 10/29/21 10/29/21 10/29/21 07:27 12:03 17:08 Glucose 113 H POC Glucose 119 H 107 H 10/29/21 10/30/21 10/30/21 20:43 05:45 08:06 Glucose 99 POC Glucose 122 H 100 H OUTPATIENT ANTIDIABETIC REGIMEN: * Amaryl 1 mg daily * Metformin 500 mg BID * HbA1c: 6.6% (10/10/21) ASSESSMENT: 10/30/21 * Blood sugars at goal, fasting 100mg/dl, decrease Lantus slightly to prevent hypoglycemia. * Consider loosening CF/CR at breakfast tomorrow if trending down. 10/28/21 * Patient's BSGs yesterday were [phone] mg/dL. Today's BSGs are 165-175 mg/dL. * Patient was on D5@80 mLs/hr. This was d/c'ed today. * Patient received 13 units of insulin yesterday (1 unit of bolus and 12 units of basal). * Continue regimen as diet has been resumed. 10/26/21: * BSGs have been reasonably well-controlled on current regimen past several days. * IVF switched from NS to D5 yesterday d/t hypernatremia. * Fasting BSG slightly increased this morning. If this trend continues, may need to increase Lantus while dextrose is infusing. * Pt has not been eating. 10/23 * Patient received 12 units of basal insulin yesterday and no bolus at all. * Checked with RN, she has not been having any oral food intake at all. * Fasting BSG yesterday was 92 mg/dl and the basal dose was reduced yesterday. Today fasting is 94 mg/dl. Continued same basal dose of 12 units today. The basal dose kept her blood sugars steady between 91 mg/dl to 93 mg/dl all day yesterday. * Reduced basal dose to 10 units for tomorrow 10/21 * Patient's BSGs remain stable. * No changes indicated at this time. 10/19 * Blood sugars at goal, pre-lunch sugar trending low, loosen CR at breakfast to prevent hypoglycemia prior to lunch * Fasting 154mg/dl, continue Lantus dose * Ampicillin + Cefepime for UTI 1/14 * BSGs yesterday were controlled at [phone] mg/dL. Received 15 units of Lantus and 4 units of Novolog (TDD = 19 units) * Fasting BSG above goal for several days now, 159 mg/dL this AM. Will increase Lantus slightly this AM. * Postprandials well controlled. No change in Novolog necessary. 10/15 * BSGs yesterday of 167, 207, 59, and 142 mg/dL * Received 27 units of insulin (15 of which was basal) * Fasting BSG of 140 mg/dL this morning - will continue increased dose of Lantus 15 units daily * Given low BSG at dinner, will loosen lunch, dinner, HS Novolog parameters PLAN FOR INPATIENT GLYCEMIC CONTROL: * Hold outpatient oral diabetes medications * Basal insulin - * Lantus 10 units SC QAM * Bolus insulin * NovoLog per scale ACHS or Q6hrs while NPO * Goal Range: Low 110 mg/dL - High 140 mg/dL at breakfast, 120-150 mg/dL with lunch, dinner, and HS * Correction Factor: 20 mg/dL/unit with breakfast, 35 mg/dL/unit with lunch, dinner, and HS * Nutritional / Prandial insulin per carb ratio of 1 unit per 8 grams CHO consumed, 1 unit per 12 grams CHO consumed with lunch, dinner, HS PLAN FOR DISCHARGE: * HbA1C = 6.6% on 10/10/21 * Goal A1c is less than 8% in this patient given her age and co-morbidities. A1c of 6.6% indicates that she is a well controlled diabetic at home with only oral anti-diabetic meds. * Recommend continue current meds (Metformin 500 mg BID with meals and Amaryl 1 mg daily with a meal) on discharge as long as no contraindications are present.
[2021-10-30] MEDS: POLYETHYLENE (MIRALAX) 17 GM PACK PO SCH (10:02)
--- NOTE | 2021-10-30 12:01 | Hospitalist Progress Note ---
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 No focal abnormalities were seen. - Keppra 1000 mg IV x 1 but per discussion with Neurology - changed to Depakote 500 mg IV loading dose then 250 mg Q6H. - Another dose of IV Depakote 500mg x1 given 10/25 and then continued on 250mg q6h - No longer with signs of seizure activity, mentation is clearing, awake/alert, following commands - Transition from IV Depakote to PO Depakote DR 500mg BID - Appreciate assistance by speech therapy, diet ordered (diabetic, pureed) and she is tolerating well - Changed IVF to 1/2NSS at 80 ml/hr on 10/28 (2) Acute embolic stroke: Plan: - Neuro consulted MRI/ECHO/A1c/lipid all performed, PT/OT/Speech therapy following - Also with homonymous hemianopsia due to recent CVA - should have obstetrics gyn F/U post-discharge - Repeat Head CT due to being more sleepy on 10/21 - no acute hemorrhage; expected evolution changes of several infarcts; 1.6 x 0.7 cm hypodensity within the L cerebellar hemisphere new compared to prior head CT however there was a punctate infarct in the L cerebellum on last MRI - ?more pronounced vs new CVA - Changed medications back to PO on 10/28 - On antiplatelet agent as well as anticoagulation d/t strong suspicion for embolic cva - Continue PT/OT --> will need updated notes from OT to assist in D/C planning (3) Acute encephalopathy: Plan: Metabolic and Multifactoral -- Stroke/delirium w/ underlying dementia/Seizure d/o--> IMPROVING (4) Acute kidney injury: Plan: - LUZ stopped and Lasix on hold - Changed IVF to 1/2NSS at 80 ml/hr - Renal function stable, not far from baseline creatinine of 1.6 - Hydrating for days with no improvement in renal fx - Consult nephrology, appreciate their input (5) (HFpEF) heart failure with preserved ejection fraction: Plan: - Hx Pulm HTN on 2L NC continuous but had been on RA --> back to 96% on RA - Hypoxia when sleeping and very likely with underlying sleep apnea; did VBG given her sleepiness on only mildly elevated CO2 - No decompensation - will monitor with fluids - Lasix on hold for now (6) CKD (chronic kidney disease), stage III: Plan: - Baseline Cr 1.4 to 1.6 (7) Hypertension: Plan: - Continue Norvasc 5mg daily, can uptitrate if added BP control is needed - Hydralazine 10mg IV q6h prn sbp>170 or dbp>100 (8) Asthma: Plan: - No exacerbation at this time; Albuterol PRN (9) Hyperlipidemia: Plan: - Cont Lipitor 10 mg daily. (10) Type 2 diabetes mellitus: Plan: - HbA1C 6.6% - Hold home orals; appreciate pharmacy management (11) Chronic respiratory failure with hypoxia and hypercapnia: Plan: - Hx pulm HTN - Stable O2 sats in room air - suspect some degree of sleep apnea/snoring observed - of note, previously noted w/ requiring 2L NC continuously in July 2021 admission - only need to utilize O2 prn sat <90% (12) Mass of right wrist: Plan: - ?hematoma - xray no acute fx, soft tissue mass appreciated - May need MRI to determine exactly what this is and if it needs I&D - Not sure that she would sit still for MRI Plan: From [facility]. She is going to require SNF upon discharge. Updated LOURDES Price, on 10/30. She remains at likely what is her baseline. Dispo: SNF. Case management is working on d/c planning. Will need to send referrals to other facilities besides [facility] d/t lack of available beds at this time. Dee would like Ms. Saucedo's other Niece (Sarika Evans) [phone] to be able to talk with patient if she is able to speak. Admission and Anticipated Discharge Date Admission Date: October 11, 2021 Subjective Patient was seen on rounds this morning. Continues to be awake, alert, and interactive. Follows commands. Therapy recommending SNF upon discharge. No further seizure activity. Pt denies pain or dyspnea. 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 She denies chest pain, shortness of breath. Physical Exam Physical Exam: GENERAL: 85 yo elderly pleasantly confused WF. NAD. LUNGS: Clear to auscultation bilaterally. No W/R/R. CARDIOVASCULAR: Regular rate and rhythm. No M/G/R. ABDOMEN: Soft, obese, nondistended, normal BS x 4 quad. : Singh in place EXTREMITIES: No edema. Non-tender. Peripheral pulses +2/4. NEUROLOGIC: Awake, alert, oriented to self only. Able to raise arms, appreciable difference in strength L side stronger than R SKIN: Warm, dry, intact. Scattered ecchymosis, mostly over right arm. Large golf ball sized tender fluctuant mass on dorsum of right wrist. ?hematoma Results & Data Results & Data ([facility]) Vital Signs (Past 12 Hours) Vital Signs Temp Pulse Resp BP BP Pulse Ox 10/30/21 08:17 36.4 C L 62 16 152/71 H 100 10/30/21 00:29 37 C 70 22 127/74 93 Laboratory Results 10/28/21 05:56 10/30/21 05:45 PG Care Time/CCT Total # of Minutes Spent Total Time Spent with Patient: Total time spent is greater than 50% in coordination of care (as documented) at patient's floor/unit and/or counseling patient: Coding Level of Care Code 08086 Subseq Hosp Care Lvl 2 Diagnoses Seizure disorder G40.909 Acute embolic stroke I63.9 Acute encephalopathy G93.40 Acute kidney injury N17.9 (HFpEF) heart failure with preserved ejection fraction I50.30 CKD (chronic kidney disease), stage III N18.30 Hypertension I10 Asthma J45.909 Hyperlipidemia E78.5 Type 2 diabetes mellitus E11.9 Chronic respiratory failure with hypoxia and hypercapnia J96.11; J96.12 Mass of right wrist R22.31
--- NOTE | 2021-10-30 17:22 | Nephrology Consultation ---
Date of Consultation October 30, 2021 Assessment & Plan (1) Acute kidney injury: * MARIELY/CKD likely due to dehydration in the setting of LUZ inhibitor therapy * Patient appears clinically volume contracted * Will order urinalysis w/ microscopy to assess for granular casts * Continue gentle hydration * Monitor PRP (2) Chronic kidney disease, stage 4 (severe): * Baseline Cr 1.4 - 1.6 w/ EGFR 29 cc/min. Urinalysis has only revealed trace blood and protein. 10/[address] revealed bilateral renal cortical thinning. No mass or hydronephrosis. Renal impairment is likely due to microvascular disease (3) Hypertension: * Permissive HTN due to recent embolic CVA * LUZ held due to MARIELY (4) Acute embolic stroke: * Etiology unclear: echocardiogram, carotid doppler, LE US all negative (5) Morbid obesity: * Debilitated condition. senior care resident History of Present Illness Reason for Consultation: MARIELY/CKD Attending Physician: Mariano Devries MD History of Present Illness Ms. Saucedo is an 85 year old white female who is seen at the request of the [facility] for evaluation of MARIELY/CKD. Medical records in the EMR were reviewed today and are summarized as follows: Ms. Saucedo has stage IV CKD (advanced impairment). Baseline Cr has been 1.4 - 1.6 w/ EGFR 29 cc/min. Urinalysis has only revealed trace blood and protein. 10/[address] revealed bilateral renal cortical thinning. No mass or hydronephrosis. Her renal impairment is presumed to be due to microvascular disease. Ms. Saucedo's medical history is significant for morbid obesity, JOSEFINA, pulmonary HTN, AODM and HTN. She is a resident at the [facility] and was admitted to [facility] 10/09/21 for evaluation of confusion and near syncope. Imaging revealed embolic CVA. Echocardiogram, carotid doppler and lower extremity doppler were negative for source. Clinical course complicated by worsening mentation and poor oral intake. Primary team has been discussing option of comfort measures w/ the family. Patient has developed clinical dehydration. Lisinopril and Furosemide have been held and gentle hydration started. Cr has risen to 2.0. Patient is nonoliguric Allergies Allergy/AdvReac Type Severity Reaction Status Date / Time coconut Allergy Intermediate Rash Verified 10/09/21 20:37 peanut Allergy Intermediate Rash Verified 10/09/21 20:37 blueberry Allergy Unknown Verified 10/09/21 20:37 raspberry Allergy Unknown Verified 10/09/21 20:37 oxycodone [From OxyContin] AdvReac Mild hallucinati Verified 10/08/21 10:13 on Home Medications Medication Instructions Recorded Confirmed Type tramadol 50 mg tablet 50 mg PO Q8H PRN #90 tab 10/03/20 10/09/21 Rx amlodipine 5 mg tablet 5 mg PO DAILY #90 tab 02/04/21 10/09/21 Rx metformin 500 mg tablet 500 mg PO BID #180 tab 03/06/21 10/09/21 Rx acetaminophen 325 mg tablet 650 mg PO Q4H PRN #120 tab MDD 3g 05/26/21 10/09/21 Rx or 9 tabs atorvastatin 10 mg tablet 10 mg PO HS #90 tab 05/26/21 10/09/21 Rx cyanocobalamin (vitamin B-12) 1,000 mcg IM MONTHLY #1 ml 05/26/21 10/09/21 Rx 1,000 mcg/mL injection solution glimepiride 1 mg tablet 1 mg PO QAM #90 tab 05/26/21 10/09/21 Rx lisinopril 20 mg tablet 20 mg PO BID #180 tab 05/26/21 10/09/21 Rx metoprolol tartrate 50 mg tablet 50 mg PO BID #180 tab 05/26/21 10/09/21 Rx montelukast 10 mg tablet 10 mg PO HS #90 tab 05/26/21 10/09/21 Rx pantoprazole 40 mg tablet,delayed 40 mg PO DAILY #90 tab 05/26/21 10/09/21 Rx release quetiapine 50 mg tablet 50 mg PO HS #90 tab 05/26/21 10/09/21 Rx albuterol sulfate 90 mcg/actuation 2 puff INHALATION Q6H PRN #8.5 g 06/27/21 10/09/21 Rx aerosol inhaler fluticasone 100 mcg-salmeterol 50 1 inh INHALATION BID #180 ea 06/27/21 10/09/21 Rx mcg/dose blistr powdr for inhalation (Advair Diskus) cholecalciferol (vitamin D3) 125 125 mcg PO DAILY #90 tab 07/01/21 10/09/21 Rx mcg (5,000 unit) tablet polysaccharide iron complex 150 mg 150 mg PO DAILY #90 cap 07/01/21 10/09/21 Rx iron capsule (Ferrex) Oxygen Home #1 ea 07/13/21 10/09/21 Rx aspirin 81 mg tablet,delayed 81 mg PO DAILY #90 tab 10/01/21 10/09/21 Rx release (Aspirin Low Dose) acetaminophen 325 mg tablet 650 mg PO HS 10/09/21 10/09/21 History calcium carbonate 600 mg-vitamin 1 tab PO DAILY 10/09/21 10/09/21 History D3 5 mcg (200 unit) tablet (Calcium 600 + D(3)) dextran 70-hypromellose eye drops 1 drp OPHTHALMIC (EYE) DAILY PRN 10/09/21 10/09/21 History in a dropperette (Artificial Tears (PF)) furosemide 20 mg tablet (Lasix) 20 mg PO DAILY 10/09/21 10/09/21 History guaifenesin 600 mg tablet, 600 mg PO Q12H PRN 10/09/21 10/09/21 History extended release 12 hr (Mucinex) methyl salicylate 15 %-menthol 10 1 applic TOPICAL BID PRN 10/09/21 10/09/21 History % topical cream nystatin 100,000 unit/gram topical 1 appln TOP TID PRN 10/09/21 10/09/21 History powder (Nystop) sennosides 8.6 mg tablet (Senokot) 8.6 mg PO DAILY PRN 10/09/21 10/09/21 History Patient History Medical History Acute congestive heart failure Anemia Asthma Benign essential tremor Chronic cerebral ischemia Chronic low back pain Chronic renal insufficiency CKD (chronic kidney disease), stage III Hyperlipidemia Hypertension Mood disorder Obstructive sleep apnea s/p UPPP surgery Osteoarthritis Osteopenia Peripheral neuropathy Prolapse of female pelvic organs Type 2 diabetes mellitus Vitamin B12 deficiency Vitamin D deficiency Surgical History H/O wisdom tooth extraction History of knee replacement R and L History of tonsillectomy and adenoidectomy S/P appendectomy S/P cholecystectomy S/P uvulopalatopharyngoplasty S/P vaginal hysterectomy unsure if ovaries were left Family History Sister Liver cancer Mother , in her 50s of heart issues Heart disease Father , in his 50s of cancer Cancer Denies family history of Ovarian cancer Breast cancer Colorectal cancer Uterine cancer Social History Smoking Status: Never smoker Second Hand Exposure: No; Hx Alcohol Use: No Hx Substance Use: No Preferred Language: French Communication Ability: Effective Visual Impairment: No Limitations Hearing Ability: Normal 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 How many Children do You have: 2 Feels Safe at Home: Yes caffeine: No Physical Activity Frequency: Does not Exercise Seatbelt Use: always Assistive Devices: None Review of Systems Review of Systems: Unobtainable due to cognitive status Physical Exam Constitutional: + obese; not in distress ENMT: external ear and nose normal, oropharynx normal Neck: trachea midline, no thyromegaly Respiratory: normal respiratory effort, lungs clear to auscultation Cardiovascular: RRR, no murmur, no edema Gastrointestinal (Abdomen): normal bowel sounds, soft, nontender, no hepatosplenomegaly Neurologic: awake Results & Data ([facility]) Vital Signs (Past 12 Hours) Vital Signs Temp Pulse Resp BP Pulse Ox 10/30/21 15:31 37.2 C 77 18 159/80 H 10/30/21 08:17 36.4 C L 62 16 152/71 H 100 Laboratory Results Laboratory Results - last 24 hr 10/29/21 10/30/21 10/30/21 20:43 05:45 08:06 Sodium 140 Potassium 5.0 D Chloride 111 H Carbon Dioxide 24 Anion Gap 5 BUN 54 H Creatinine 1.98 H Est Cr Clr Drug Dosing 23.4 Est GFR ( Amer) 26.2 Est GFR (Non-Af Amer) 22.6 BUN/Creatinine Ratio 27.3 H Glucose 99 POC Glucose 122 H 100 H Calcium 8.1 L Total Creatine Kinase 10/30/21 10/30/21 10/30/21 12:02 16:49 17:11 Sodium Potassium Chloride Carbon Dioxide Anion Gap BUN Creatinine Est Cr Clr Drug Dosing Est GFR ( Amer) Est GFR (Non-Af Amer) BUN/Creatinine Ratio Glucose POC Glucose 103 H 121 H Calcium Total Creatine Kinase Pending PG Care Time/CCT Total # of Minutes Spent Total Time Spent with Patient: Total time spent is greater than 50% in coordination of care (as documented) at patient's floor/unit and/or counseling patient: Coding Level of Care Code 20540 Inpt Consult Level 5 Diagnoses Acute kidney injury N17.9 Chronic kidney disease, stage 4 (severe) N18.4 Hypertension I10 Acute embolic stroke I63.9 Morbid obesity E66.01
[2021-10-30 18:47] LABS: Appearance Urine Cloudy (Clear); Bacteria Urine Automated Negative (Negative); Bilirubin Urine Negative (Negative); Blood Urine Trace (Negative); Color Urine Yellow; Glucose Urine UA Negative (Negative); Ketones Urine Negative (Negative); Leukocyte Esterase Urine 2+ (Negative); Nitrite Urine Negative (Negative); Protein Urine Trace (Negative); RBC Urine Automated 0-4 /hpf (0-4); Specific Gravity Urine 1.008 (1.000-1.030); Urobilinogen Urine Negative (Negative); WBC Urine Automated >30 /hpf (0-5)
[2021-10-30 19:14] LABS: Cast Urine Automated 0 /lpf (0-5)
[2021-10-30] MEDS: ACETAMINOPHEN 500 MG TAB PO PRN (21:08)
[2021-10-30] MEDS: MONTELUKAST SODIUM 10 MG TABLET PO SCH (21:09)
[2021-10-30] MEDS: ATORVASTATIN 10 MG TAB PO SCH (21:11)
[2021-10-31 07:24] VITALS: TEMP 98.2
[2021-10-31] MEDS: LIDOCAINE 5% 1 PATCH TD SCH (08:02)
[2021-10-31] MEDS: FOLIC ACID 1 MG TAB PO SCH (08:02)
[2021-10-31] MEDS: IRON POLYSACCHARIDE COMPLEX 150 MG CAPSULE PO SCH (08:02)
[2021-10-31] MEDS: APIXABAN 2.5 MG TAB PO SCH (08:03)
[2021-10-31] MEDS: amLODIPine BESYLATE 5 MG TAB PO SCH (08:03)
[2021-10-31] MEDS: ASPIRIN 81 MG ECTAB PO SCH (08:03)
[2021-10-31] MEDS: PANTOprazole 40 MG TAB PO SCH (08:03)
[2021-10-31] MEDS: PYRIDOXINE HCL 50 MG TAB PO SCH (08:03)
[2021-10-31] MEDS: DIVALPROEX DELAY RELEASE 500 MG TAB PO SCH (08:03)
[2021-10-31] MEDS: DICLOFENAC SOD 1% GEL 100 GM TUBE EXT SCH ×2 (08:03→13:29)
[2021-10-31] MEDS: FLUTICASONE/VILANTEROL 100/25MCG 14 PUFFS/INHALER INH SCH (08:06)
[2021-10-31] MEDS: DOCUSATE SODIUM/SENNA 50/8.6MG TAB PO SCH (08:08)
[2021-10-31 08:34] LABS: BUN Creatinine Ratio 28.3 (10-20); Calcium 8.6 mg/dl (8.5-10.1); Creatinine Clr Calc Pharmacy 27.9 ml/min; Est GFR (African American) 32.5 ml/min; Potassium 3.7 mmol/L (3.5-5.1)
[2021-10-31] MEDS ORDERED: INSULIN GLARGINE SOLOSTAR 100 UNITS/ML 3 ML PEN SC SCH (09:00)
[2021-10-31] MEDS: INSULIN ASPART PER UNIT SC SCH ×2 (09:21→13:20)
[2021-10-31] MEDS: POLYETHYLENE (MIRALAX) 17 GM PACK PO SCH (09:23)
--- NOTE | 2021-10-31 09:43 | Nephrology Progress Note ---
Date of Service October 31, 2021 Assessment & Plan (1) Acute kidney injury: Plan: * MARIELY resolved * Recommend heplock IV. Encourage oral hydration * Urinalysis negative for granular casts. FeNa 1.1% * No further Nephrology evaluation indicated at this time. Will sign off. Please call if further assistance is needed (2) Chronic kidney disease, stage 4 (severe): Plan: * Baseline Cr 1.4 - 1.6 w/ EGFR 29 cc/min. Urinalysis has only revealed trace blood and protein. 10/[address] revealed bilateral renal cortical thinning. No mass or hydronephrosis. Renal impairment is likely due to microvascular disease (3) Hypertension: Plan: * Permissive HTN due to recent embolic CVA * Kidney function has recovered. If tighter control of BP needed recommend titration of amlodipine over restarting LUZ inhibitor due to propensity toward dehydration and MARIELY (4) Acute embolic stroke: Plan: * Etiology unclear: echocardiogram, carotid doppler, LE US all negative (5) Morbid obesity: Plan: * Debilitated condition. alf resident Admission and Anticipated Discharge Date Admission Date: October 11, 2021 Subjective Ms. Saucedo was evaluated in her hospital room this morning. She was alert but confused. She appeared to be tolerating IV hydration well. SaO2 94% on RA while supine in bed Review of Systems Review of Systems: Unobtainable due to cognitive status Physical Exam Constitutional: + obese; not in distress ENMT: external ear and nose normal, oropharynx normal Neck: trachea midline, no thyromegaly Respiratory: normal respiratory effort, lungs clear to auscultation Cardiovascular: RRR, no murmur, no edema Gastrointestinal (Abdomen): normal bowel sounds, soft, nontender, no hepatosplenomegaly Neurologic: awake Results & Data ([facility]) Vital Signs (Past 12 Hours) Vital Signs Temp Pulse Resp BP Pulse Ox 10/31/21 07:20 36.8 C 61 16 182/70 H 94 Laboratory Results Laboratory Tests 10/31/21 07:32 Sodium 142 Potassium 3.7 D Chloride 111 H Carbon Dioxide 23 BUN 47 H Creatinine 1.66 H D Glucose 105 H Calcium 8.6 PG Care Time/CCT Total # of Minutes Spent Total Time Spent with Patient: Total time spent is greater than 50% in coordination of care (as documented) at patient's floor/unit and/or counseling patient: Coding Level of Care Code 34537 Subseq Hosp Care Lvl 3 Diagnoses Acute kidney injury N17.9 Chronic kidney disease, stage 4 (severe) N18.4 Hypertension I10 Acute embolic stroke I63.9 Morbid obesity E66.01
[2021-10-31] MEDS ORDERED: levoFLOXacin/D5W 750 MG/150 ML BAG IV ONE (10:00)
--- NOTE | 2021-10-31 12:46 | Pharmacy Report ---
Pharmacy Glycemic Short Note 2 - Date of Service October 31, 2021 - Glycemic Short BSG Results (Last 24 hours): 10/30/21 10/30/21 10/31/21 16:49 20:39 07:32 Glucose 105 H POC Glucose 121 H 104 H 10/31/21 10/31/21 08:23 12:15 Glucose POC Glucose 96 129 H OUTPATIENT ANTIDIABETIC REGIMEN: * Amaryl 1 mg PO daily * Metformin 500 mg PO BID * HbA1c: 6.6% (10/10/21) ASSESSMENT: 10/31/21: * Fasting BSG continues to trend down (96 mg/dL this morning). * Will reduce Lantus dose further this evening. * No further changes at this time. 10/30 * Blood sugars at goal, fasting 100mg/dl, decrease Lantus slightly to prevent hypoglycemia. * Consider loosening CF/CR at breakfast tomorrow if trending down. 10/28 * Patient's BSGs yesterday were [phone] mg/dL. Today's BSGs are 165-175 mg/dL. * Patient was on D5@80 mLs/hr. This was d/c'ed today. * Patient received 13 units of insulin yesterday (1 unit of bolus and 12 units of basal). * Continue regimen as diet has been resumed. 10/26 * BSGs have been reasonably well-controlled on current regimen past several days. * IVF switched from NS to D5 yesterday d/t hypernatremia. * Fasting BSG slightly increased this morning. If this trend continues, may need to increase Lantus while dextrose is infusing. * Pt has not been eating. PLAN FOR INPATIENT GLYCEMIC CONTROL: * Hold outpatient oral diabetes medications * Basal insulin - * Lantus 8 units SC QAM * Bolus insulin * NovoLog per scale ACHS or Q6hrs while NPO * Goal Range: Low 110 mg/dL - High 140 mg/dL at breakfast, 120-150 mg/dL with lunch, dinner, and HS * Correction Factor: 30 mg/dL/unit * Nutritional / Prandial insulin per carb ratio of 1 unit per 10 grams CHO consumed PLAN FOR DISCHARGE: * HbA1C = 6.6% * Goal A1c is less than 8% in this patient given her age and co-morbidities. A1c of 6.6% indicates that she is a well controlled diabetic at home with only oral anti-diabetic meds. * Recommend continue current meds (Metformin 500 mg BID with meals and Amaryl 1 mg daily with a meal) on discharge as long as no contraindications are present.
[2021-10-31] MEDS: SODIUM CHLORIDE 0.45 % 1,000 ML IV SCH (13:29)
[2021-10-31 14:57] VITALS: BP 148/86; O2SAT 95
--- NOTE | 2021-10-31 15:17 | Discharge Summary ---
Date of Service October 31, 2021 Admission HPI Per Admitting Provider [id number] sent from [facility] due to near syncope and confusion. PMH CHF, asthma, COPD on 2L home O2, CKD III, HLD, HTN, JOSEFINA, Peripheral Neuropathy. Patient seen at bedside, pleasant calm cooperative comfortable, states she is in [facility], January 08 1991, she appears to have some word finding difficulty. Patient states she started getting left temporal headache last night, started listing to the side had difficulty straightening up, started feeling sick, nauseous fever headache, denies vomitting. Patient states increased pain on palpation of her left hoahaoism. Patient also does not track her eyes to the right, limited tracking up and down, eye tracking to left intact. Patient denies vision loss. Per [facility], at 4pm today patient was lethargic, dizzy almost fell x2, had triple vision, running into the wall on the left, confused, has no memory of the event. Per POA her neice patient usually AAOx3 with full range of vision, her current status is very usual for her. Patient walks with walker at baseline, wears diaper. Has baseline diarrhea constipation. She denies recent falls. Patient would like some water, states she has some chest congestion. She does not want to use a CPAP again, states it was uncomfortable. She has a pessary for her urinary incontinence. Principal Diagnosis Acute L CVA, suspected embolic Polymicrobial UTI s/p treatment Seizure disorder Discharge Exam GENERAL: 85 yo elderly pleasantly confused WF. NAD. LUNGS: Clear to auscultation bilaterally. No W/R/R. CARDIOVASCULAR: Regular rate and rhythm. No M/G/R. ABDOMEN: Soft, obese, nondistended, normal BS x 4 quad. : Kaye in place EXTREMITIES: No edema. Non-tender. Peripheral pulses +2/4. NEUROLOGIC: Awake, alert, oriented to self only. Able to raise arms, appreciable difference in strength L side stronger than R PSYCH: hallucinating but pleasant and cooperative SKIN: Warm, dry, intact. Scattered ecchymosis, mostly over right arm. Large golf ball sized tender fluctuant mass on dorsum of right wrist. ?hematoma. Some soft tissue masses noted elsewhere by RN. Discharge Data Allergies Allergy/AdvReac Type Severity Reaction Status Date / Time coconut Allergy Intermediate Rash Verified 10/09/21 20:37 peanut Allergy Intermediate Rash Verified 10/09/21 20:37 blueberry Allergy Unknown Verified 10/09/21 20:37 raspberry Allergy Unknown Verified 10/09/21 20:37 oxycodone [From OxyContin] AdvReac Mild hallucinati Verified 10/08/21 10:13 on Consultations 10/09/21 21:49 ED Decision to Admit Stat 10/10/21 08:23 Consult Neurology Routine 10/10/21 18:11 Consult Anesthesiology Routine 10/16/21 14:23 Consult Psychiatry Routine 10/30/21 12:13 Consult Nephrology Routine Ordered Studies Head CT 10/09/21 20:14 CT head/brain wo con CLINICAL HISTORY: Confusion Technique: Contiguous axial CT images of the head were acquired from the base of the skull to the vertex without intravenous contrast administration. Images were viewed in brain, subdural and bone windows. Automated dose lowering techniques and/or adjustment according to patient size were utilized for this exam. Comparison: Comparison is made to CT head 12/10/2015 Findings: The ventricles, basal cisterns, and cerebral sulci are normal. There is no acute intracranial hemorrhage or evidence of acute territorial infarction. Neither mass effect, shift of the midline structures, nor abnormal extra-axial fluid collections are shown. Imaged portions of the paranasal sinuses and mastoid air cells are clear. The orbits appear normal. There are no acute fractures of the calvaria or scalp swelling. Impression: No acute intracranial hemorrhage, no evidence of acute territorial infarction or other acute intracranial disease process. ACT 112: Negative or not required by law. Electronically signed by: Moises Gregorio M.D. 10/09/2021 9:30 PM Chest X-Ray 10/09/21 20:15 XR chest 1V portable CLINICAL HISTORY: Atypical chest pain TECHNIQUE: Single frontal radiograph of the chest was obtained. Comparison: Comparison is made to chest one view 07/05/2021 FINDINGS: No lines and tubes are seen. The cardiomediastinal silhouette is normal. The lungs are clear. No evidence of pleural effusion or pneumothorax. IMPRESSION: No acute chest disease. ACT 112: Negative or not required by law. Electronically signed by: Moises Gregorio M.D. 10/09/2021 9:33 PM Carotid Doppler Study 10/09/21 23:01 ULTRASOUND OF THE CAROTID ARTERIES CLINICAL HISTORY: Amaurosis fugax. COMPARISON STUDY: No priors. TECHNIQUE: Real-time, grayscale, and color Doppler sonography of the carotid arteries is performed. Images are reviewed in the transverse and longitudinal planes. FINDINGS: Blood pressures were not assessed due to IV sites. The carotid arteries are patent bilaterally and demonstrate antegrade flow. There is no significant atherosclerotic plaque identified. Normal doppler arterial waveforms are seen throughout. Velocity measurements are listed below. Common carotid peak systolic velocity (cm/sec): RIGHT: 34 LEFT: 63 ICA proximal peak systolic velocity (cm/sec): RIGHT: 50 LEFT: 45 ICA mid peak systolic velocity (cm/sec): RIGHT: 56 LEFT: 61 ICA distal peak systolic velocity (cm/sec): RIGHT: 60 to LEFT: 75 ICA/CC peak systolic ratio: RIGHT: 1.8 LEFT: 1.2 Antegrade flow was shown in the vertebral arteries. The external carotid arteries are patent. IMPRESSION: 1. There is no sonographic evidence of hemodynamically significant stenosis in the right or left carotid arterial system. 2. Antegrade flow is shown in the vertebral arteries. ACT 112: Negative or not required by law. Electronically signed by: Italo Whelan M.D. 10/10/2021 7:12 AM Head MRA 10/10/21 00:03 MR ANGIOGRAM OF THE BRAIN CLINICAL HISTORY: Stroke. COMPARISON STUDY: MRI of the brain performed concurrently on 10/10/2021. TECHNIQUE: 3-D [id number] MR angiography of the intracranial circulation is performed. 3-D tumble views are created and assessed. IV contrast was not administered for this examination. FINDINGS: The internal carotid arteries are widely patent bilaterally, as are the anterior and middle cerebral arteries. The vertebrobasilar system and posterior cerebral arteries are widely patent. The left vertebral artery is dominant. The right vertebral artery is diminutive. There is no aneurysm, high- grade stenosis, or focal vessel cutoff seen throughout the intracranial circulation. IMPRESSION: Unremarkable MR angiogram of the brain. ACT 112: Negative or not required by law. Electronically signed by: Italo Whelan M.D. 10/10/2021 7:32 AM Venous Doppler Study 10/10/21 10:11 BILATERAL LOWER EXTREMITY VENOUS DOPPLER HISTORY: Embolic stroke. Assess for DVT. COMPARISON STUDY: None. FINDINGS: There is normal compressibility, flow, and augmentation within the visualized bilateral lower extremity deep venous systems. Of note, the calf vessels were not well visualized. IMPRESSION: No DVT within the visualized right or left lower extremity. ACT 112: Negative or not required by law. Electronically signed by: Chapito Lewis M.D. 10/10/2021 2:09 PM Brain MRI 10/10/21 23:20 MR brain wo con CLINICAL HISTORY: No right eye gaze near-syncopal episode 10/09/2021 TECHNIQUE: Multiplanar and multisequence MR images of the brain were obtained without intravenous contrast. Comparison: Comparison is made to CT head on 03/23/2022 law MRA head 10/10/2021, and MR brain 07/09/2021 FINDINGS: Restricted diffusion is seen in the left SHRIMP TRAWLER territory, involving the left occipital lobe left thalamus with mild associated T2 hyperintensity. Additional punctate infarcts are in the pre and postcentral gyri, right occipital lobe, and left cerebellum. Foci of T2 and FLAIR hyperintensity are noted in the paraventricular areas consistent with chronic small vessel ischemic disease. Ex vacuo ventriculomegaly and sulcal enlargement is noted compatible with diffuse encephalomalacia. No extra axial fluid collections are seen. There are no masses, mass effect, or midline shift. The corpus callosum, pituitary gland, and cerebellar tonsils appear grossly unremarkable. Tiny susceptibility artifacts are seen in the bilateral cortex likely reflecting remote hemorrhages. Flow voids of the major intracranial arterial vessels are identified. Mucosal thickening/retention cysts are seen in the sphenoid sinuses. IMPRESSION: Multiple acute infarcts, predominantly involving the left SHRIMP TRAWLER territory. No evidence of hemorrhagic transformation. ACT 112: Negative or not required by law. Electronically signed by: Moises Gregorio M.D. 10/10/2021 8:11 AM Chest X-Ray 10/14/21 08:00 XR chest 1V portable HISTORY: 85 years-old Female leukocytosis, confusion acutely altered mental status with confusion COMPARISON: Chest radiograph 10/09/2021 TECHNIQUE: Portable AP view of the chest FINDINGS: Cardiomediastinal and hilar silhouettes are unchanged. No pneumothorax, pleural effusion or overt pulmonary edema. Unchanged mild interstitial coarsening of the lung bases suggestive of atelectasis versus scarring. Degenerative changes of the shoulders and spine. IMPRESSION: No acute process. ACT 112: Negative or not required by law. The above report was generated using voice recognition software. It may contain grammatical, syntax or spelling errors. Electronically signed by: Julio Serrano M.D. 10/14/2021 8:[address] 10/14/21 15:04 CT head/brain wo con CLINICAL HISTORY: AMS/confusion, recent cva, ?hemorr conver. fall Technique: Contiguous axial CT images of the head were acquired from the base of the skull to the vertex without intravenous contrast administration. Images were viewed in brain, subdural and bone windows. Automated dose lowering techniques and/or adjustment according to patient size were utilized for this exam. Comparison: Comparison is made to CT head 10/09/2021 and MRI brain 10/20/2021 Findings: In the interval, there is greater hypodensity in the left occipital lobe compatible with findings on MRI brain. This likely flex edema from evolving infarcts. There is minimal rightward midline shift of approximately 2 mm at the posterior falx. Imaged portions of the paranasal sinuses and mastoid air cells are clear. The orbits appear normal. There are no acute fractures of the calvaria or scalp swelling. 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 Punctate right frontoparietal infarct seen on MRI is not seen on today's exam. No evidence of hemorrhagic conversion. ACT 112: Negative or not required by law. Electronically signed by: Moises Gregorio M.D. 10/14/2021 6:19 PM KUB X-Ray 10/15/21 12:54 XR KUB/Abdomen 1 view CLINICAL HISTORY: constipation, AMS. COMPARISON STUDY: No previous studies for comparison. TECHNIQUE: Single view of the abdomen. FINDINGS: There is abnormal radiolucency present along the right paracolic gutter which does not definitely have the appearance of air within the colon. The presence of free intraperitoneal air cannot be excluded. Follow-up CT of the abdomen and pelvis is recommended. Additionally, air-filled loops of large and small bowel are present without evidence for disproportionate dilatation or obstruction. There is no evidence for significant fecal stasis. There is no evidence for organomegaly or gross intra-abdominal mass. No abnormal calcifications are seen along the course of the urinary tracts bilaterally. No acute osseous pathology. IMPRESSION: 1.Abnormal radiolucency along the right paracolic gutter suspicious for the presence of free intraperitoneal air. CT of the abdomen and pelvis recommended for further evaluation. The floor will be called with results of this study. ACT 112: Negative or not required by law. Electronically signed by: Jaya Geronimo M.D. 10/15/2021 2:13 PM Abdomen/Pelvis CT 10/15/21 15:[address] WITHOUT CONTRAST CT DOSE: 1182.79 mGy.cm HISTORY: Acute generalized abdominal pain with altered mental status ams, ?intraperitoneal free air on KUB TECHNIQUE: Multiaxial CT images of the abdomen and pelvis were performed without contrast. A dose lowering technique was utilized adhering to the principles of ALARA. COMPARISON STUDY: KUB of same day, the abdomen 05/27/2011 FINDINGS: Cardiomegaly with coronary artery calcifications. Trace pericardial effusion. Mild bibasilar groundglass densities suggest atelectasis. No pneumatosis or pneumoperitoneum. The unenhanced spleen, adrenal glands and liver appear unremarkable. Cholecystectomy. Mild generalized pancreatic atrophy. There is a 1.3 cm hypodense focus within the pancreatic body on image 121. The previously described hypodensity of the pancreatic head neck junction on image 140 measures 10 mm. These are indeterminate and possibly represents sidebranch IPMN's. Cortical thinning of the kidneys. No hydronephrosis. Bilateral perinephric stranding. No renal or ureteral calculi or hydronephrosis. Unremarkable urinary bladder. Vaginal pessary. Hysterectomy. No abdominal aortic aneurysm or adenopathy. Atherosclerosis of the aorta. No bowel obstruction. Moderate fecal retention of the rectum and distal sigmoid. Extensive sigmoid diverticulosis without acute diverticulitis. No bowel wall thickening. The appendix is not definitively seen. Fat filled periumbilical hernia demonstrates diastases of 4 cm. Probable small fat filled right inguinal hernia. Degenerative changes of the spine, pelvis and hips. Superior endplate Schmorl's nodes with likely chronic T12 and L1 compression deformities. There is mild sigmoidal scoliosis of the spine. IMPRESSION: 1. No acute intra-abdominal or intrapelvic abnormality, specifically there is no pneumoperitoneum. 2. Colonic diverticulosis without acute diverticulitis. 3. Small to moderate fat filled periumbilical hernia. 4. Additional findings as above. ACT 112: Negative or not required by law. The above report was generated using voice recognition software. It may contain grammatical, syntax or spelling errors. Electronically signed by: Julio Serrano M.D. 10/15/2021 4:[address] 10/21/21 08:14 CT OF THE HEAD WITHOUT CONTRAST CLINICAL HISTORY: Altered Mental Status; Recent CVA COMPARISON STUDY: MRI of the brain October 10, 2021. Head CT October 14, 2021. CT DOSE: 691.05 mGy.cm TECHNIQUE: Helical axial images of the head were obtained without IV contrast. Automated exposure control was utilized for the study. A dose lowering technique was utilized adhering to the principles of ALARA. FINDINGS: This exam was compromised given difficulty positioning. No acute intracranial hemorrhage, midline shift or mass effect is present. There has been expected evolution of multiple infarcts, including a left occipital lobe infarct as well as an infarct involving the left thalamus and posterior limb of the left internal capsule. White matter hypodensity suggests small vessel disease. Ventricular system is unremarkable. Basal cisterns are patent. There are no extra axial collections. A 1.6 x 0.7 cm hypodensity within the left cerebellar hemisphere on image 11 of 36 is new since previous head CT of October 14, 2021. No calvarial fractures are present. IMPRESSION: 1. No acute intracranial hemorrhage. 2. Expected evolution of several infarcts, including left occipital and left thalamic infarcts. 3. 1.6 x 0.7 cm hypodensity within the left cerebellar hemisphere, new since prior head CT. This could reflect an interval acute infarct. ACT 112: Negative or not required by law. Electronically signed by: Elier Arias M.D. 10/21/2021 10:23 AM Wrist X-Ray 10/29/21 11:14 XR wrist RT 2V CLINICAL HISTORY: mass on dorsum of right wrist TECHNIQUE: 2 views of the right wrist were obtained. Comparison: None available at the time of this dictation. FINDINGS: There is no evidence of an acute fracture. The alignment is anatomic. Joint spaces are well-preserved. A soft tissue mass is seen in the dorsum of the right wrist. IMPRESSION: Soft tissue mass in the dorsal aspect of the wrist without evidence of underlying bony abnormality. ACT 112: Negative or not required by law. Electronically signed by: Moises Gregorio M.D. 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 No focal abnormalities were seen. - Keppra 1000 mg IV x 1 but per discussion with Neurology - changed to Depakote 500 mg IV loading dose then 250 mg Q6H. - Another dose of IV Depakote 500mg x1 given 10/25 and then continued on 250mg q6h - No longer with signs of seizure activity, mentation is clearing, awake/alert, following commands - Transitioned from IV Depakote to PO Depakote DR 500mg BID - Appreciate assistance by speech therapy, diet ordered (diabetic, pureed) and she is tolerating well (2) Acute embolic stroke: - Neuro consulted MRI/ECHO/A1c/lipid all performed, PT/OT/Speech therapy following - Also with homonymous hemianopsia due to recent CVA - should have supervisor scouring pads F/U post-discharge - Repeat Head CT due to being more sleepy on 10/21 - no acute hemorrhage; expected evolution changes of several infarcts; 1.6 x 0.7 cm hypodensity within the L cerebellar hemisphere new compared to prior head CT however there was a punctate infarct in the L cerebellum on last MRI - ?more pronounced vs new CVA - Changed medications back to PO on 10/28 - On antiplatelet agent as well as anticoagulation d/t strong suspicion for embolic cva - Continue PT/OT --> will need updated notes from OT to assist in D/C planning (3) Acute encephalopathy: Multifactoral relating to stroke/delirium w/ underlying dementia/Seizure d/o--> RESOLVED (4) Acute kidney injury: - LUZ stopped and Lasix held - Provided gentle hydration w/ 1/2NSS at 80 ml/hr - Nephrology consulted, agreed with current plan with no other suggestions - UA collected and appears grossly infected, 2+ leukocyte esterase and wbc's - Renal function returned to baseline today, fluids stopped - Urinary catheter was leaking this AM, removed by RN, able to void w/o catheter (5) Urinary tract infection: - Based on previous culture data w/ growth of pseudomonas and enterococcus will empirically start Levaquin - Renal function will tolerate and adjusted dose to 750mg q48h x total of 7 days d/t recent catheter - Afebrile, non elevated wbc count (6) (HFpEF) heart failure with preserved ejection fraction: - Hx Pulm HTN on 2L NC continuous but had been on RA --> back to 96% on RA - Hypoxia when sleeping and very likely with underlying sleep apnea; did VBG given her sleepiness on only mildly elevated CO2 - No decompensation - will monitor with fluids - Lasix on hold for now (7) CKD (chronic kidney disease), stage III: - Baseline Cr 1.4 to 1.6 (as above) (8) Hypertension: - Continue Norvasc 5mg daily, can uptitrate if added BP control is needed - Hydralazine 10mg IV q6h prn sbp>170 or dbp>100 during her hospitalization was ordered - At this point, her bp is acceptable - Further med adjustment can be done as an outpatient (9) Asthma: - No exacerbation at this time; Albuterol PRN (10) Hyperlipidemia: - Cont Lipitor 10 mg daily. (11) Type 2 diabetes mellitus: - HbA1C 6.6% - Hold home orals; appreciate pharmacy management (12) Chronic respiratory failure with hypoxia and hypercapnia: - Hx pulm HTN - Stable O2 sats in room air - suspect some degree of sleep apnea/snoring observed - of note, previously noted w/ requiring 2L NC continuously in July 2021 admission - only need to utilize O2 prn sat <90% (13) Mass of right wrist: - ?hematoma - xray no acute fx, soft tissue mass appreciated - May need MRI to determine exactly what this is and if it needs I&D - Not sure that she would sit still for MRI, but if it of concern, could be done as an outpatient - Not really bothersome to her and she has other areas of similarity, given her age and advanced dementia, hold off on any further procedures She is medically and hemodynamically stable for discharge to SNF today ([facility]). Follow up with provider in house. Follow up with neurology as outpatient. Medications should be taken as directed in med rec, complete course of Levaquin. Called and updated pt's LOURDES freeman Linda. Total Time Total Time Spent Total Time Spent (In Minutes): >30 Discharge Plan Discharge Items Patient Disposition: Transfer [facility] Reason For Visit: HEADACHE Discharge Diagnosis: Stroke, urinary tract infection, and seizures Activity: Per Instructions section Activity Comment: w/complete assist as tolerated Non-emergency contact: Primary Care Provider and Neurologist Call non-emergency contact if: you have any medication questions and your symptoms worsen Follow-up/Referrals: Miguel Ángel Markham MD [Physician] - (2 weeks to f/u from stroke and seizure disorder) Renee Arias MD [Primary Care Provider] - Diet: Carb Consistent or DM2 Diet Texture: Pureed (blended smooth) Addtl Attending Provider Instructions: Take all medications as instructed on discharge paperwork. Complete course of Levaquin, next dose is due on 11/02/2021 Continue therapy at assisted facility Follow-up with neurology as an outpatient for recent stroke as well as seizure disorder Follow-up with provider at assisted [facility] Pending Studies at Discharge: Yes Studies:: urine culture is pending Stand-Alone Forms: My [facility] Skilled Items Patient informed of condition?: Yes DNR: Yes Discharge Level of Care: Skilled Communicable Disease: No Discharge Prognosis: Stable Lines: None Urinary Catheter: No Medications and DC Order Prescriptions: New divalproex 500 mg Tablet,Delayed Release (Dr/Ec) 500 mg PO BID Qty: 60 RF: 0 lidocaine 5 % Adhesive Patch,Medicated 1 patch transdermal QAM Qty: 30 RF: 0 pyridoxine (vitamin B6) 50 mg Tablet 50 mg PO QAM Qty: 30 RF: 0 folic acid 1 mg Tablet 1 mg PO QAM Qty: 30 RF: 0 Eliquis 2.5 mg Tablet 2.5 mg PO BID Qty: 60 RF: 0 levofloxacin 750 mg tablet 750 mg PO Q48H 7 Days Qty: 4 RF: 0 Continued amlodipine 5 mg tablet 5 mg PO DAILY Qty: 90 RF: 3 glimepiride 1 mg tablet 1 mg PO QAM Qty: 90 RF: 3 pantoprazole 40 mg tablet,delayed release (DR/EC) 40 mg PO DAILY Qty: 90 RF: 3 atorvastatin 10 mg tablet 10 mg PO HS Qty: 90 RF: 3 montelukast 10 mg tablet 10 mg PO HS Qty: 90 RF: 3 quetiapine 50 mg tablet 50 mg PO HS Qty: 90 RF: 3 cyanocobalamin (vitamin B-12) 1,000 mcg/mL solution 1,000 mcg IM MONTHLY Qty: 1 RF: 5 cholecalciferol (vitamin D3) 125 mcg (5,000 unit) tablet 125 mcg PO DAILY Qty: 90 RF: 3 polysaccharide iron complex [Ferrex 150] 150 mg iron capsule 150 mg PO DAILY Qty: 90 RF: 3 aspirin [Aspirin Low Dose] 81 mg tablet,delayed release (DR/EC) 81 mg PO DAILY Qty: 90 RF: 3 fluticasone propion-salmeterol [Advair Diskus] 100-50 mcg/dose blister with device 1 inh inhalation BID Qty: 180 RF: 3 albuterol sulfate 90 mcg/actuation HFA aerosol inhaler 2 puff inhalation Q6H PRN (Reason: shortness of breath or wheezing) Qty: 8.5 RF: 5 (DME) Oxygen Home Liters Per Minute See Rx Instructions .ROUTE .MEDSUPPLY Qty: 1 RF: 0 furosemide [Lasix] 20 mg tablet 20 mg PO DAILY RF: 0 calcium carbonate-vitamin D3 [Calcium 600 + D(3)] 600 mg-5 mcg (200 unit) Tablet 1 tab PO DAILY RF: 0 nystatin [Nystop] 100,000 unit/gram powder 1 appln TOP TID PRN (Reason: irritation) RF: 0 sennosides [Senokot] 8.6 mg Tablet 8.6 mg PO DAILY PRN (Reason: Constipation) RF: 0 Artificial Tears (PF) Dropperette 1 drp OPHTHALMIC (EYE) DAILY PRN (Reason: Dry Eyes) RF: 0 Bengay Greaseless 15-10 % Cream 1 applic TOPICAL BID PRN (Reason: Muscle Pain) RF: 0 Changed acetaminophen 325 mg Tablet 650 mg PO Q6H Qty: 0 RF: 0 Discontinued tramadol 50 mg tablet 50 mg PO Q8H PRN (Reason: pain) Qty: 90 RF: 5 metformin 500 mg tablet 500 mg PO BID Qty: 180 RF: 3 metoprolol tartrate 50 mg tablet 50 mg PO BID Qty: 180 RF: 3 lisinopril 20 mg tablet 20 mg PO BID Qty: 180 RF: 3 acetaminophen 325 mg tablet 650 mg PO Q4H MDD 3g or 9 tabs PRN (Reason: pain) Qty: 120 RF: 0 guaifenesin [Mucinex] 600 mg Tablet Extended Release 12hr 600 mg PO Q12H PRN (Reason: Congestion) RF: 0 Discharge Orders: Discharge Order (Routine); Ordered 10/31/21 Ordered By: Jocelyne Marin Admission Data Admit Date/Time: 10/11/21 15:29 Attending Provider: Mariano Devries Admit Provider: Coco Mcmillan Primary Care Provider: Renee Arias Other Providers: [facility] ; gO Grewal ; Gaetano Hobson ; Miguel Ángel Markham ; Lauren Pham ; Natalie Toscano ; Chitra Bray ; Felicia Wall ; Sara Wagner ; Missy Ballesteros ; Meli Talley ; Miah Garcia ; Esa Sparks ; Navneet Oneal ; Chapito Johnson ; Jena Johnson ; Gaetano Guerra ; Blanca Castillo ; Ralph Snell ; Luca Nino ; Ha Rodas ; Danish Flor ; Heidi Barragan ; Jj Dudley ; Lin Zepeda ; Lexy Dudley ; Alonso Novak ; Lilly Erwin ; Patel Trent ; Flori Espana ; Lurdes Wilkes ; Lilly Kee. ; Katrina Quintana ; Jamel Recio ; Celina Rodriguez ; Katheryn Cazares ; Angie Terrazas ; Brandee Taveras ; Nikita Taveras V ; Vaibhav Danielle ; Sara Mir ; Suman Jackson ; Yessica Jasso ; Myra Cantu ; Nikita Chapin ; Sd Barragan ; Moises Acosta ; Mandi Rice ; Malgorzata Nix ; Nikita Carrasco ; Angie Beauchamp ; [place] ; Al Folr ; C[place] ; Keny Cade ; Clayton Rivero ; Gavino Ricardo ; Yanick Ordonez ; Keny Medeiros ; Miah Hu Jr ; Trinidad Lynn ; Sagrario Bell ; Cecilia Leigh ; Rohini Becerril ; Ricky Laguerre ; [place] ; Franco Murphy Coding Level of Care Code D/C DAY MANAGEMENT >30 MINS Diagnoses Seizure disorder G40.909 Acute embolic stroke I63.9 Acute encephalopathy G93.40 Acute kidney injury N17.9 (HFpEF) heart failure with preserved ejection fraction I50.30 CKD (chronic kidney disease), stage III N18.30 Hypertension I10 Asthma J45.909 Hyperlipidemia E78.5 Type 2 diabetes mellitus E11.9 Chronic respiratory failure with hypoxia and hypercapnia J96.11; J96.12 Mass of right wrist R22.31 Urinary tract infection N39.0 Hematuria presence: without hematuria Urinary tract infection type: site unspecified
[2021-10-31 15:37] VITALS: PULSE 92
== END 2021-10-31 16:08 | DRG 65 ==
LOC: EDINP 19:24 → ED 19:24 → SUATTDRO 22:46 → EDINP 10-10 01:55 → 2N 10-10 05:45 → SUATTDRO 10-11 15:29 → 3N 10-18 22:17